=== PATIENT | female | born 1945 | race Caucasian/White ===

== ENCOUNTER 2024-03-25 19:51 | Emergency (ER) | payer MEDICARE, BC, SELFPAY ==
[2024-03-25 19:52] VITALS: BMI 31.2
--- NOTE | 2024-03-25 20:47 | PC.NURSE ---
PT LEAVING DOES NOT WANT TO WAIT, INFORMED PT TO RETURN FOR ANY WORSENING OF SYMPTOMS. PT VERBALIZED UNDERSTANDING
== END 2024-03-25 20:47 | disposition left against medical advice (07) ==
PROVIDERS: Emergency Provider Emergency Medicine; PCP Family Medicine
DX: Z53.21 Procedure and treatment not carried out due to patient leaving prior to being seen by health care provider (principal)

== ENCOUNTER 2024-06-19 09:25 | Emergency (ER) | payer MEDICARE, BC, SELFPAY ==
[2024-06-19 09:34] VITALS: BP 178/82; PULSE 90; RESP 17; TEMP 36.5; O2SAT 95; BMI 31.2
[2024-06-19 09:39] VITALS: PULSE 81; RESP 18; O2SAT 98
--- NOTE | 2024-06-19 09:52 | PD.EDRME ---
Rapid Medical Screening Exam RME Arrival date/time: 06/19/24 09:25 78-year-old female with past medical history of atrial fibrillation, hypertension, diabetes, duodenal ulcer, diverticulosis, and IBS presents emergency department complaining of abdominal pain and diarrhea. Patient reports recently discharged from the hospital this past and was diagnosed with colitis. Chief Complaint: Abdominal Pain Time Seen by Provider: 06/19/24 09:39 Vital signs: Vital Signs Temperature 97.7 F 06/19/24 09:34 Pulse Rate 90 06/19/24 09:34 Respiratory Rate 17 06/19/24 09:34 Blood Pressure 178/82 H 06/19/24 09:34 Pulse Oximetry (%) 95 06/19/24 09:34 Oxygen Delivery Method Room Air 06/19/24 09:34
--- NOTE | 2024-06-19 09:54 | EKG_ITS ---
[facility] Test Date: 2024-06-19 Pat Name: MARIBEL ALAMO Department: Room: - Gender: Female File Conversion Operator: : [id number] Requested By: Demetrius Aranda ([facility]) Order Number: [id number] Reading MD: Demetrius Aranda ([facility]) Measurements Intervals [place] Rate: 85 P: 66 AK: 132 QRS: -2 QRSD: 98 T: 72 QT: 339 QTc: 404 Interpretive Statements SINUS RHYTHM WITH SINUS ARRHYTHMIA POSSIBLE ANTERIOR MYOCARDIAL INFARCTION , OF INDETERMINATE AGE [30 ms Q WAVE IN V3/V4, OR R < 0.2 mV IN V4] Compared to ECG 06/11/2024 14:03:57 No significant changes /store/S0/[id number].pdf
[2024-06-19 10:43] LABS: Basophils # (Auto) 0.1 Thou/mm3 (0.0-0.2); Basophils % (Auto) 1 % (0-2.5); Eosinophils # (Auto) 0.1 Thou/mm3 (0.0-0.5); Eosinophils % (Auto) 0 % (0-10); Hematocrit 34.2 % (36.0-46.0); Hemoglobin 10.7 g/dL (12.0-16.0); Immature Granulocytes % (Auto) 1 % (0-0); Immature Granulocytes Auto 0.09 Thou/mm3 (0.00-0.00); Lymphocytes % (Auto) 17 % (10-50); Mean Corpuscular HGB Conc 31.3 g/dl (31.0-37.0); Mean Corpuscular Hemoglobin 24.8 pg (25.0-35.0); Mean Corpuscular Volume 79 fL (80-100); Monocytes # (Auto) 0.8 Thou/mm3 (0.0-0.8); Monocytes % (Auto) 7 % (0-12); Neutrophils # (Auto) 8.9 Thou/mm3 (1.8-7.7); Neutrophils % (Auto) 75 % (37-80); Nucleated Red Blood Cell % 0 /100 WBC (0); Platelet Count 592 Thou/mm3 (140-440); RDW Standard Deviation 45.1 fL (36.4-46.3); Red Blood Count 4.32 Miln/mm3 (4.00-5.20); White Blood Count 11.9 Thou/mm3 (3.6-11.0)
[2024-06-19 10:49] LABS: B-Type Natriuretic Peptide < 20 pg/mL (0-100)
[2024-06-19 10:51] LABS: Alanine Aminotransferase 15 U/L (10-49); Albumin, Serum 4.7 gm/dL (3.4-4.8); Albumin/Globulin Ratio 1.3 (1.2-2.2); Alkaline Phosphatase 88 U/L (46-116); Anion Gap 8 (7-16); Aspartate Amino Transferase 14 U/L (0-34); BUN/Creatinine Ratio 11 Ratio (12-20); Bilirubin,Total 0.2 mg/dL (0.3-1.2); Blood Urea Nitrogen 11 mg/dL (9-23); Carbon Dioxide 26.5 mMol/L (20.0-31.0); Chloride 101 mMol/L (98-107); Estimated Creatinine Clearance 41.9 mL/min (>60); Globulin 3.6 gm/dL (2.3-3.5); Glucose 184 mg/dL (74-106); Lipase 24 U/L (12-53); Magnesium 1.8 mg/dL (1.6-2.6); Osmolality,Calculated 274 (275-295); Partial Thromboplastin Time 25.8 Seconds (22.0-36.0); Potassium 4.5 mMol/L (3.4-5.1); Prothrombin Time 11.4 Seconds (9.0-12.2); Sodium 135 mMol/L (136-145); Total Protein 8.3 gm/dL (5.7-8.2); Troponin I < 0.002 ng/mL (0.0-0.045); eGFR 58 See Note
[2024-06-19 11:02] LABS: Collection Type, Urine Clean Catch
[2024-06-19 11:34] LABS: Bacteria,Urine Rare; Bilirubin,Urine Negative (Negative); Blood,Urine Negative (Negative); Budding Yeast,Urine Present; Clarity,Urine Turbid (Clear/Hazy); Color,Urine Yellow (Lt Yel-Yel); Culture Indicated,Urine Contaminated; Glucose, Urine Negative (Negative); Ketones,Urine Negative (Negative); Leukocyte Esterase,Urine Positive (Negative); Nitrite,Urine Negative (Negative); Protein,Urine Negative (Neg - Trace); RBC,Urine 5 /hpf (0-3); Specific Gravity,Urine 1.017 (1.001-1.035); Squamous Epithelial Cell,Urine 17 /hpf (0-5); Transitional Epi Cells,Urine 2 /hpf (0-5); Urobilinogen,Urine Negative mg/dL (0.0-1.0); WBC,Urine 16 /hpf (0-5)
[2024-06-19] MEDS: ACETAMINOPHEN 325 MG TABLET 650 MG PO (13:13)
--- NOTE | 2024-06-19 14:37 | PC.NURSE ---
pt placed in rm 9 now.
[2024-06-19 14:42] VITALS: BP 197/84; PULSE 87; RESP 18; TEMP 36.4; O2SAT 98
[2024-06-19 15:14] VITALS: BP 175/88; PULSE 84; RESP 18; TEMP 36.4; O2SAT 98
--- NOTE | 2024-06-19 15:19 | PD.EDADULT ---
ED General RME/HPI General Chief complaint: Abdominal Pain Stated complaint: ABD PAIN Time Seen by Provider: 06/19/24 09:39 Arrival date/time: 06/19/24 09:25 CC: Left upper quadrant abdominal pain HPI ongoing and chronic in nature but state patient has been here many times for the same complaint patient recently discharged from this facility on antibiotics for colitis. Patient states that antibiotics are too strong giving her diarrhea and dizziness. Patient is afebrile nontoxic-appearing not in any acute distress stating the pain is the same location same character slightly increased intensity in the same area of the abdomen. Patient denies chest pain fever chills nausea vomiting shortness of breath or difficulty breathing. RME / HPI RME / HPI narrative: 06/19/24 09:25 78-year-old female with past medical history of atrial fibrillation, hypertension, diabetes, duodenal ulcer, diverticulosis, and IBS presents emergency department complaining of abdominal pain and diarrhea. Patient reports recently discharged from the hospital this past and was diagnosed with colitis. Related Data Home Medications ?Medication ?Instructions ?Recorded ?Confirmed Bifidobacterium infantis 4 mg 4 mg PO DAILY 06/27/23 06/11/24 capsule (Align) acetaminophen 500 mg tablet 500 mg PO PRN PRN Pain 06/27/23 10/28/23 cholecalciferol (vitamin D3) 25 25 mcg PO 1XD 06/27/23 10/28/23 mcg (1,000 unit) tablet (Vitamin D3) levothyroxine 50 mcg tablet 50 mcg PO DAILY 06/27/23 06/11/24 metformin 500 mg tablet 500 mg PO DAILY 06/27/23 06/11/24 duloxetine 60 mg capsule,delayed 60 mg PO QDAY 08/23/23 06/11/24 release alprazolam 0.5 mg tablet 0.5 mg PO BID PRN Anxiety 10/28/23 06/11/24 benazepril 20 mg tablet 20 mg PO QDAY 10/28/23 06/11/24 loperamide 2 mg capsule 2 mg PO QDAY 10/28/23 10/28/23 pantoprazole 40 mg tablet,delayed 40 mg PO QDAY 10/28/23 06/11/24 release apixaban 5 mg tablet (Eliquis) 5 mg PO QDAY 06/11/24 06/11/24 Previous Rx's ?Medication ?Instructions ?Recorded famotidine 20 mg tablet 20 mg PO BID #20 tabs 11/01/23 ondansetron 4 mg disintegrating 4 mg PO Q8H PRN nausea and 02/22/24 tablet vomiting #30 tabs sucralfate 100 mg/mL oral 5 ml PO QID #420 mL 04/10/24 suspension (Carafate) cefdinir 300 mg capsule 300 mg PO BID 9 days #18 caps 06/16/24 metronidazole 500 mg tablet 500 mg PO TID 9 days #27 tabs 06/16/24 Allergies Allergy/AdvReac Type Severity Reaction Status Date / Time amoxicillin [From Augmentin] Allergy Severe Hives Verified 06/06/24 18:04 aspirin Allergy Severe Abdominal Verified 06/06/24 18:04 Pain ciprofloxacin [From Cipro] Allergy Severe Gastrointestinal Verified 06/06/24 18:04 Upset clavulanic acid Allergy Severe Hives Verified 06/06/24 18:04 [From Augmentin] codeine Allergy Severe Nausea Verified 06/06/24 18:04 fluconazole Allergy Severe Rash Verified 06/06/24 18:04 gabapentin Allergy Severe Abdominal Verified 06/06/24 18:04 Pain ketorolac [From Toradol] Allergy Severe Abdominal Verified 06/06/24 18:04 Pain nalbuphine Allergy Severe Abdominal Verified 06/06/24 18:04 Pain Sulfa (Sulfonamide Allergy Severe Hives Verified 06/06/24 18:04 Antibiotics) tizanidine Allergy Severe Rash Verified 06/06/24 18:04 tramadol Allergy Severe Rash Verified 06/06/24 18:04 Review of Systems Review of Systems Narrative Review of Systems: GEN: No fever, no chills, no weight loss EYES: No discharge, no visual changes, no pain HEENT: No ear pain, no congestion, no sore throat PULM: No shortness of breath, no cough, no congestion CV: No chest pain, no dyspnea on exertion, no palpitations GI: No nausea, no vomiting, no diarrhea, + pain, no constipation : No frequency, no urgency, no dysuria MUSC/SKEL: No joint pain, no back pain SKIN: No rash PSYCH: No hallucinations, no depression HEME/LYMPH: No easy bleeding or bruising tendencies NEURO: No weakness, no headache Past Medical History Past Medical History NEUROLOGIC: Negative Neurological Disorders or Seizures CARDIAC: Positive Cardiac Disorders (A FIB), Cardiac Arrhythmia, Atrial Fibrillation, Hypercholesterolemia and Hypertension; Negative Congestive Heart Failure RESPIRATORY: Positive Pneumonia and Sleep Apnea; Negative Chronic Obstructive Pulmonary Disease (COPD) or Asthma GASTROINTESTINAL: Positive Gastrointestinal Bleed, Ulcerative Colitis, Diverticulitis, Diverticulosis, Irritable Bowel, Obstructive Bowel, Hemorrhoids and Obesity GENITOURINARY: Negative Renal Disease ENT: Positive Cataracts and Ear Infection ENDOCRINE: Positive Diabetes Mellitus Type 2 and Hypothyroidism; Negative Diabetes Mellitus Type 1 HEMATOLOGIC: Negative Sickle Cell Disease PSYCHO/SOCIAL: Positive Anxiety OTHER HISTORY: Positive Falls, Blood Transfusions, Anesthesia Reactions, Chicken Pox, Mumps and Clostridium Difficile; Negative Cancer Family History FAMILY HISTORY: Positive Family Cardiac Disorders; Negative Family Respiratory Disorders Surgical History SURGICAL: Positive Cardiac Surgery, Thyroidectomy, Joint Replacement, Hysterectomy and Section Social History SMOKING STATUS: Never smoker SUBSTANCE USE: does not use ED Exam Narrative Physical exam: [General: Not in any acute distress Head normocephalic HEENT: Within acceptable limits Neck is supple nontender Chest equal chest rise nontender to palpation Respiratory: Clear to auscultation no wheezes crackles or rubs CV: Rate rhythm is regular no murmurs rubs or clicks Abdomen is soft nontender no masses positive bowel sounds all 4 quadrants Back: No CVA tenderness no spinous process tenderness from cervical spine thoracic and lumbar spine Skin: Intact no petechiae rash induration ulceration or crepitus Extremities: Moving all extremity against resistance cap refill less than 2 seconds neurosensory intact Neuro: Awake alert oriented x3 Glascow coma 15 no focal deficits] Course Quality Measures none Orders Category Date Time Status EKG (ED ONLY) *Do not use* NOW Care 06/19/24 09:54 Completed EKG (ED Only) Stat Exams 06/19/24 09:54 Draft B-Type Natriuretic Peptide Stat Lab 06/19/24 10:25 Completed CBC Stat Lab 06/19/24 10:25 Completed Comprehensive Metabolic Panel Stat Lab 06/19/24 10:25 Completed Lipase Stat Lab 06/19/24 10:25 Completed Magnesium Stat Lab 06/19/24 10:25 Completed Partial Thromboplastin Time Stat Lab 06/19/24 10:25 Completed Prothrombin Time with INR Stat Lab 06/19/24 10:25 Completed Troponin I Stat Lab 06/19/24 10:25 Completed Urinalysis, C/S if Indicated Stat Lab 06/19/24 10:42 Completed c diff [Clostridium Difficile PCR] Stat Lab 06/19/24 10:42 Completed Acetaminophen Tab [Tylenol Tab] Med 06/19/24 12:24 Discontinued 650 mg PO X1 ONE HYDROcodone*/APAP 5/325 [[place] 5/325] Med 06/19/24 15:26 Discontinued 1 tab PO X1 ONE Vital Signs Vital signs: Vital Signs Temperature 97.7 F 06/19/24 09:34 Pulse Rate 90 06/19/24 09:34 Respiratory Rate 17 06/19/24 09:34 Blood Pressure 178/82 H 06/19/24 09:34 Pulse Oximetry (%) 95 06/19/24 09:34 Oxygen Delivery Method Room Air 06/19/24 09:34 MDM Patient data External records reviewed:: [facility] previous records Clinical information provided by:: patient Social determinants that could affect healthcare access:: none Patient has the following chronic illnesses:: Chronic abdominal pain colitis How is presenting disease/condition affected by chronic disease/condition?: uneffected by Evaluation data The following diagnostics were reviewed and interpreted by me:: lab results Lab and/or radiology exams considered but not ordered:: CBC shows patient has a WBCs of 11.9 H&H of 10.7 and 34.2 with platelets at 592. Coags within acceptable limits CMP shows sodium 135 potassium of 4.5 chloride of 101 bicarb to 26.5 BUN 11 creatinine of 1.0 glucose of 184 Lipase of 24 Urine is contaminated but shows no evidence of UTI. Interpretation Summary: Patient has been here multiple times for the same complaint, with a recent discharge I suspect the patient is having mild adverse reaction to the antibiotics however the patient is not in any acute distress that quires emergent immediate intervention patient will be discharged home. Medications Medications considered but not ordered:: None Medication administrations:: Medication Administration History Discontinued Medications Acetaminophen (Acetaminophen 325 Mg Tablet) 650 mg PO X1 ONE Stop: 06/19/24 12:25 Last Admin: 06/19/24 13:13 Dose: 650 mg Documented By: VG Hydrocodone Bitart/Acetaminophen (Hydrocodone/Apap 5/325 Tablet) 1 tab PO X1 ONE Stop: 06/19/24 15:27 Last Admin: 06/19/24 15:44 Dose: 1 tab Documented By: LF None Consultations Consultation(s) initiated? (list below): No Diagnosis Differential Diagnosis ED Complaint MDM: Enteritis colitis ileus obstruction Most likely diagnosis given after review of the tests above:: Abdominal pain Admission Indicated Admission indicated?: not indicated Explain why admission is indicated or not indicated:: Stable for outpatient follow-up Admission Request Was there a request for admission?: No Disposition Plan Disposition Plan: Discharge Discharge Attestation Discharge Attestation: The patient and all family members were given an opportunity to ask questions and understood the discharge instructions. Discharge instructions specifically effects, indications for sooner follow up or return to the emergency department, and the expected course of current diagnosis. Patient condition: Stable Medical Decision Making Differential Diagnosis Differential Diagnosis: Enteritis colitis ileus obstruction Lab Data 06/19/24 10:25 06/19/24 10:25 Labs: Lab Results 06/19/24 06/19/24 Range/Units 10:25 10:42 WBC 11.9 H (3.6-11.0) Thou/mm3 RBC 4.32 (4.00-5.20) Miln/mm3 Hgb 10.7 L D (12.0-16.0) g/dL Hct 34.2 L (36.0-46.0) % MCV 79 L (80-100) fL MCH 24.8 L (25.0-35.0) pg MCHC 31.3 (31.0-37.0) g/dl RDW Std Deviation 45.1 (36.4-46.3) fL Plt Count 592 H D (140-440) Thou/mm3 Neut % (Auto) 75 (37-80) % Lymph % (Auto) 17 (10-50) % [place] % (Auto) 7 (0-12) % Eos % (Auto) 0 (0-10) % Baso % (Auto) 1 (0-2.5) % Neut # (Auto) 8.9 H (1.8-7.7) Thou/mm3 Lymph # (Auto) 2.0 (1.0-4.8) Thou/mm3 [place] # (Auto) 0.8 (0.0-0.8) Thou/mm3 Eos # (Auto) 0.1 (0.0-0.5) Thou/mm3 Baso # (Auto) 0.1 (0.0-0.2) Thou/mm3 Immature Gran # (Auto) 0.09 H (0.00-0.00) Thou/mm3 Absolute Nucleated RBC 0.00 (0.00-0.00) Thou/mm3 Immature Gran % 1 H (0-0) % Nucleated RBC % 0 (0) /100 WBC PT 11.4 (9.0-12.2) Seconds INR 1.0 (0.9-1.3) APTT 25.8 (22.0-36.0) Seconds Sodium 135 L (136-145) mMol/L Potassium 4.5 (3.4-5.1) mMol/L Chloride 101 (98-107) mMol/L Carbon Dioxide 26.5 (20.0-31.0) mMol/L Anion Gap 8 (7-16) BUN 11 (9-23) mg/dL Creatinine 1.0 (0.6-1.3) mg/dL Estim Creat Clear Calc 41.9 L (>60) mL/min eGFR 58 L (60 - ) See Note BUN/Creatinine Ratio 11 L (12-20) Ratio Glucose 184 H (74-106) mg/dL Calculated Osmolality 274 L (275-295) Calcium 10.0 (8.3-10.6) mg/dL Corrected Calcium 10.0 (8.5-10.1) mg/dL Magnesium 1.8 (1.6-2.6) mg/dL Total Bilirubin 0.2 L (0.3-1.2) mg/dL AST 14 (0-34) U/L ALT 15 (10-49) U/L Alkaline Phosphatase 88 (46-116) U/L Troponin I < 0.002 (0.0-0.045) ng/mL B-Natriuretic Peptide < 20 (0-100) pg/mL Total Protein 8.3 H (5.7-8.2) gm/dL Albumin 4.7 (3.4-4.8) gm/dL Globulin 3.6 H (2.3-3.5) gm/dL Albumin/Globulin Ratio 1.3 (1.2-2.2) Lipase 24 (12-53) U/L Ur Collection Type Clean Catch Urine Color Yellow (Lt Yel-Yel) Urine Clarity Turbid A (Clear/Hazy) Urine pH 6.0 (5.0-7.0) Ur Specific [place] 1.017 (1.001-1.035) Urine Protein Negative (Neg - Trace) Urine Glucose (UA) Negative (Negative) Urine Ketones Negative (Negative) Urine Blood Negative (Negative) Urine Nitrite Negative (Negative) Urine Bilirubin Negative (Negative) Urine Urobilinogen (Auto) Negative (0.0-1.0) mg/dL Ur Leukocyte Esterase Positive (Negative) Urine RBC 5 H (0-3) /hpf Urine WBC 16 H (0-5) /hpf Ur Squamous Epith Cells 17 H (0-5) /hpf Ur Transition Epith Cell 2 (0-5) /hpf Urine Bacteria Rare (None) Urine Yeast (Budding) Present A (None) Ur Culture Indicated? Contaminated Stl C. diff Tox B Gene Negative (Negative) Discharge Plan Plan Patient Disposition: HOME (Self Care) Patient condition on transfer: Stable Prescriptions/Referrals Prescriptions/Med Rec: No Action metformin 500 mg Tablet 500 mg PO DAILY acetaminophen 500 mg Tablet 500 mg PO PRN MDD 4 PRN (Reason: Pain) levothyroxine 50 mcg Tablet 50 mcg PO DAILY cholecalciferol (vitamin D3) [Vitamin D3] 25 mcg (1,000 unit) Tablet 25 mcg PO 1XD Align 4 mg Capsule 4 mg PO DAILY duloxetine 60 mg capsule,delayed release(DR/EC) 60 mg PO QDAY Rx Instructions: Takes 80mg in the afternoon loperamide 2 mg capsule 2 mg PO QDAY alprazolam 0.5 mg tablet 0.5 mg PO BID PRN (Reason: Anxiety) Hold Instructions: Resume on 10/29/23. Patient Comments: TAKE 1 TABLET BY MOUTH THREE TIMES DAILY NEEDED FOR ANXIETY pantoprazole 40 mg tablet,delayed release (DR/EC) 40 mg PO QDAY Patient Comments: TAKE 1 TABLET BY MOUTH DAILY benazepril 20 mg tablet 20 mg PO QDAY famotidine 20 mg tablet 20 mg PO BID Qty: 20 0RF ondansetron 4 mg tablet,disintegrating 4 mg PO Q8H PRN (Reason: nausea and vomiting) Qty: 30 0RF sucralfate [Carafate] 100 mg/mL suspension 5 ml PO QID Qty: 420 0RF Rx Instructions: swish in mouth and swallow; use after food/drink Eliquis 5 mg Tablet 5 mg PO QDAY cefdinir 300 mg capsule 300 mg PO BID 9 Days Qty: 18 0RF metronidazole 500 mg tablet 500 mg PO TID 9 Days Qty: 27 0RF Referrals: Tyrone Langford MD [Primary Care Provider] - In 1 week Problem List Clinical Impression: Abdominal pain Patient/Caregiver Discharge Instructions Education Materials: Abdominal Pain Additional Instructions: Follow-up with Dr. Osuna as recommended your last visit. Print Language: Afghan Stand Alone Forms: [employer] Award Info., Patient Portal Info Letter PA/RADIOLOGIST PHYSICIAN Supervising Physician PA/RADIOLOGIST PHYSICIAN Supervising Physician: Lucius Jimenes ENP
[2024-06-19] MEDS: HYDROcodone/APAP 5/325 TABLET 1 TAB PO (15:44)
[2024-06-19 15:46] LABS: Clostridium Difficile PCR Negative (Negative)
[2024-06-19 16:48] VITALS: BP 179/98; PULSE 80; RESP 18; TEMP 36.8; O2SAT 98
== END 2024-06-19 16:52 | disposition home or self-care (01) ==
PROVIDERS: Emergency Provider Emergency Medicine; PCP Family Medicine
DX: R10.12 Left upper quadrant pain (principal); I49.8 Other specified cardiac arrhythmias; I10 Essential (primary) hypertension
CPT/HCPCS: 36415; 80053; 81001; 83690; 83735; 83880; 84484; 85025; 85610; 85730; 87493; 93005; 99283; A9270

== ENCOUNTER 2024-07-02 15:49 | Emergency (ER) | payer MEDICARE, BC, SELFPAY ==
[2024-07-02 15:52] VITALS: PULSE 96; RESP 18; O2SAT 99
[2024-07-02 15:58] VITALS: BP 185/91; PULSE 100; RESP 18; TEMP 36.9; O2SAT 98; BMI 31.2
--- NOTE | 2024-07-02 16:01 | XR_ITS ---
Examination: CT abdomen and pelvis without contrast. Coronal 3-D reconstructions. Sagittal 2-D reconstructions. Date and time of exam:July 01, 2024 1657 hrs. Indications: Abdominal pain beginning last night CTDI: vol (mGy): 11 DLP: (mGycm): 489 Technique: Axial images of the abdomen have been obtained, 3 mm slice thickness Intravenous contrast material has not been administered. Low dose protocols were performed. One or more of the following dose reduction techniques were used; automated exposure control, adjustment of the mA and/or KV according to patient size, use of iterative reconstruction technique. Findings: No focal liver or splenic lesions No gallstones No pancreatic mass No renal calculi Tiny anterior right proteinaceous cyst 4 mm Aorta normal size No bowel obstruction No pericecal inflammatory change The colon especially rectosigmoid shows mild nonspecific colitis pattern Urinary bladder is intact Right hip hemiarthroplasty with satisfactory alignment Impression: Mild diffuse nonspecific colitis pattern
[2024-07-02] MEDS: ONDANSETRON ODT 4 MG TABRAP PO (16:14)
--- NOTE | 2024-07-02 17:03 | EDNOTE_ITS ---
ED Abdominal Pain RME/HPI General Chief Complaint: Abdominal Pain Stated complaint: ABD PAIN, VOMITING AND DIARRHEA Time seen by provider: 07/02/24 15:58 Arrival date/time: 07/02/24 15:49 RME / HPI RME / HPI narrative: Patient is a 78 year old female presenting to the ED after being seen earlier today complaining of abdominal pain, states the medication given earlier did not help. Patient states she went home and had nausea, vomiting and diarrhea. History includes AFIB, hypertension and diabetes. I took over the care from Dr. Ulloa at 6 PM, see his notes for complete H&P and ED course. I reviewed all diagnostic test results from today: My review of the abdominal CT report is mild colitis. Blood tests and urine tests are unremarkable. At this point, diagnoses include mild colitis. Treatment here included antibiotics. Recommended a trial of treatment at home. Based on my best medical judgment, made decision no further evaluation or treatment indicated at this time. Patient understands and agrees to the discharge instructions customized and printed, see below. Discharge instructions from Dr. Hernadez: 1. After evaluation, your symptoms are due to mild colitis. 2. Take cefdinir and Flagyl for the infection. 3. Zofran for nausea/vomiting. 4. Tylenol with codeine for severe pain. 5. Clear liquid diet for 24 hours then advance as tolerated. 6. To prevent dehydration, increase oral fluid and maintain clear urine.? If dark or yellow, increase oral fluid. 7. See a private doctor on 04/03/2024 for recheck. Ask to review all test results and official radiology reports, to make sure you receive all necessary follow-ups and monitoring. Ask to help you get more care not available here in the ER.? Such as EGD or scoping of your stomach, colonoscopy or scoping the colon, and a referral to see a groundwater monitoring technician. 8. Seek immediate medical care with worsening, fever, or with any concerns. 9. Whenever you need to take pills but have trouble (such as nausea, vomiting, upset stomach), but the pill(s) in your rectum. They will get absorbed into your blood without going through your stomach and work better. Abhijeet Hernadez MD Related Data Home Medications ?Medication ?Instructions ?Recorded ?Confirmed Bifidobacterium infantis 4 mg 4 mg PO DAILY 06/27/23 06/11/24 capsule (Align) acetaminophen 500 mg tablet 500 mg PO PRN PRN Pain 06/27/23 10/28/23 cholecalciferol (vitamin D3) 25 25 mcg PO 1XD 06/27/23 10/28/23 mcg (1,000 unit) tablet (Vitamin D3) levothyroxine 50 mcg tablet 50 mcg PO DAILY 06/27/23 06/11/24 metformin 500 mg tablet 500 mg PO DAILY 06/27/23 06/11/24 duloxetine 60 mg capsule,delayed 60 mg PO QDAY 08/23/23 06/11/24 release alprazolam 0.5 mg tablet 0.5 mg PO BID PRN Anxiety 10/28/23 06/11/24 benazepril 20 mg tablet 20 mg PO QDAY 10/28/23 06/11/24 loperamide 2 mg capsule 2 mg PO QDAY 10/28/23 10/28/23 pantoprazole 40 mg tablet,delayed 40 mg PO QDAY 10/28/23 06/11/24 release apixaban 5 mg tablet (Eliquis) 5 mg PO QDAY 06/11/24 06/11/24 Previous Rx's ?Medication ?Instructions ?Recorded famotidine 20 mg tablet 20 mg PO BID #20 tabs 11/01/23 ondansetron 4 mg disintegrating 4 mg PO Q8H PRN nausea and 02/22/24 tablet vomiting #30 tabs sucralfate 100 mg/mL oral 5 ml PO QID #420 mL 04/10/24 suspension (Carafate) acetaminophen 300 mg-codeine 30 mg 2 tab PO TID PRN pain #20 tabs 07/02/24 tablet cefdinir 300 mg capsule 300 mg PO BID #14 caps 07/02/24 lidocaine HCl 2 % mucosal solution 5 ml PO TIDPC PRN dyspepsia #300 mL 07/02/24 (Lidocaine Viscous) metronidazole 500 mg tablet 500 mg PO BID 7 days #14 tabs 07/02/24 ondansetron 4 mg disintegrating 4 mg PO TID PRN nausea and 07/02/24 tablet vomiting 5 days #10 tabs sucralfate 100 mg/mL oral 10 ml PO TID #500 mL 07/02/24 suspension (Carafate) Allergies Allergy/AdvReac Type Severity Reaction Status Date / Time amoxicillin [From Augmentin] Allergy Severe Hives Verified 07/02/24 08:56 aspirin Allergy Severe Abdominal Verified 07/02/24 08:56 Pain ciprofloxacin [From Cipro] Allergy Severe Gastrointestinal Verified 07/02/24 08:56 Upset clavulanic acid Allergy Severe Hives Verified 07/02/24 08:56 [From Augmentin] codeine Allergy Severe Nausea Verified 07/02/24 08:56 fluconazole Allergy Severe Rash Verified 07/02/24 08:56 gabapentin Allergy Severe Abdominal Verified 07/02/24 08:56 Pain ketorolac [From Toradol] Allergy Severe Abdominal Verified 07/02/24 08:56 Pain nalbuphine Allergy Severe Abdominal Verified 07/02/24 08:56 Pain Sulfa (Sulfonamide Allergy Severe Hives Verified 07/02/24 08:56 Antibiotics) tizanidine Allergy Severe Rash Verified 07/02/24 08:56 tramadol Allergy Severe Rash Verified 07/02/24 08:56 Review of Systems Review of Systems Narrative Review of Systems: Gen: No fever, no chills, no weight loss EYES: No discharge, no visual changes, no pain HEENT: No ear pain, no congestion, no sore throat PULM: No shortness of breath, no cough, no congestion CV: No chest pain, no dyspnea on exertion, no palpitations GI: + nausea, vomiting, diarrhea, pain, no constipation : No frequency, no urgency, no dysuria Musc/skel: No joint pain, no back pain Skin: No rash Psyc: No hallucinations, no depression Heme/Lymph: No easy bleeding or bruising tendencies Neuro: No weakness, no headache Past Medical History Past Medical History NEUROLOGIC: Negative Neurological Disorders or Seizures CARDIAC: Positive Cardiac Disorders (A FIB), Cardiac Arrhythmia, Atrial Fibrillation, Hypercholesterolemia and Hypertension; Negative Congestive Heart Failure RESPIRATORY: Positive Pneumonia and Sleep Apnea; Negative Chronic Obstructive Pulmonary Disease (COPD) or Asthma GASTROINTESTINAL: Positive Gastrointestinal Bleed, Ulcerative Colitis, Diverticulitis, Diverticulosis, Irritable Bowel, Obstructive Bowel, Hemorrhoids and Obesity GENITOURINARY: Negative Renal Disease ENT: Positive Cataracts and Ear Infection ENDOCRINE: Positive Diabetes Mellitus Type 2 and Hypothyroidism; Negative Diabetes Mellitus Type 1 HEMATOLOGIC: Negative Sickle Cell Disease PSYCHO/SOCIAL: Positive Anxiety OTHER HISTORY: Positive Falls, Blood Transfusions, Anesthesia Reactions, Chicken Pox, Mumps and Clostridium Difficile; Negative Cancer Family History FAMILY HISTORY: Positive Family Cardiac Disorders; Negative Family Respiratory Disorders Surgical History SURGICAL: Positive Cardiac Surgery, Thyroidectomy, Joint Replacement, Hysterectomy and Section Social History SMOKING STATUS: Never smoker SUBSTANCE USE: does not use ED Exam Narrative Physical exam: GEN. APPEARANCE: The patient is alert awake oriented X-3 in minimal distress, lying down comfortably, does not look ill/toxic. Patient has good eye contact. Patient is cooperative. Patient is tearful, appears to be in pain. VITALS: All vitals were reviewed and the pulse ox is 98% on room air which is normal according to my interpretation. HEENT: Normocephalic, atraumatic. Pupils are equal and reactive. Oral mucosa is moist. Patent Nares NECK: Supple, nontender, no thyromegaly, no meningismus, no JVD, no step offs CHEST: Symmetrical, atraumatic, and with equal expansion , Nontender on palpation no deformity and no crepitus. CARDIOVASCULAR: Heart regular rhythm no murmur or gallop rub or extra beats. LUNGS: Clear to auscultation bilaterally with symmetrical chest rise. No laboring tachypnea or wheezing. No intercostal subcostal retraction. No rales and no rhonchi. ABDOMEN: Soft, flat, nontender to palpation, no guarding or rebound tenderness. There are no abnormal masses palpated. Active and normal bowel sounds. EXTREMITIES: Nontender. No edema. No cyanosis. Patient is able to move all 4 extremities well, with full ROM and good CSM. SKIN: Warm and dry, no jaundice or rashes noted. MUSCULOSKELETAL: No lubar or midline bony tenderness. There is no CVA tenderness. No paraspinal muscle spasm or tenderness. NEURO: Patient is SHEA x 4, Cranial nerves II through XII grossly intact. There is no focal neurologic deficits noted. GCS is 15, PNS and [employer] appear grossly intact. PSYCHIATRIC: Patient is in normal mood and affect, cooperative, no SI or HI or hallucinations. Course Quality Measures none Orders Category Date Time Status CT abdomen pelvis wo con Stat Exams 07/02/24 16:01 Completed Ondansetron Odt [Zofran Odt] Med 07/02/24 16:01 Discontinued 4 mg PO X1 ONE cefTRIAXone [Rocephin] 1,000 mg Med 07/02/24 19:45 Discontinued Lidocaine 1% 20 ml [Xylocaine 1% 20 ML] 2.1 ml IM X1 fentaNYL INJ [Sublimaze Inj] Med 07/02/24 16:03 Discontinued 25 mcg IM X1 ONE Vital Signs Vital signs: Vital Signs Temperature 98.5 F 07/02/24 15:58 Pulse Rate 100 07/02/24 15:58 Respiratory Rate 18 07/02/24 15:58 Blood Pressure 185/91 H 07/02/24 15:58 Pulse Oximetry (%) 98 07/02/24 15:58 Oxygen Delivery Method Room Air 07/02/24 15:58 Abdominal Pain MDM Patient data External records reviewed:: [facility] previous records Clinical information provided by:: patient Social determinants that could affect healthcare access:: none Patient has the following chronic illnesses:: AFIB, hypertension, diabetes How is presenting disease/condition affected by chronic disease/condition?: uneffected by Evaluation data The following diagnostics were reviewed and interpreted by me:: lab results Lab and/or radiology exams considered but not ordered:: none Interpretation Summary: radiology pending at sign out Medications / Prescriptions Medications or Prescriptions considered but not ordered:: none Medication administrations:: Medication Administration History Discontinued Medications Ceftriaxone Sodium 1,000 mg/ (Lidocaine HCl 2.1 ml) 0 mg IM X1 ONE Stop: 07/02/24 19:46 Last Admin: 07/02/24 20:08 Dose: 2.1 mg Documented By: ROMEL Fentanyl Citrate (Fentanyl Cit Inj 50 Mcg/Ml Amp 2ml) 25 mcg IM X1 ONE Stop: 07/02/24 16:04 Last Admin: 07/02/24 17:14 Dose: 25 mcg Documented By: ROMEL Ondansetron HCl (Ondansetron Odt 4 Mg Tabrap) 4 mg PO X1 ONE; Protocol Stop: 07/02/24 16:02 Last Admin: 07/02/24 16:14 Dose: 4 mg Documented By: ROMEL see above Consultations Consultation(s) initiated? (list below): No Diagnosis Differential diagnosis abdominal pain: other (gastritis, enteritis) Most likely diagnosis given after review of the tests above:: pending at time of sign out Admission Indicated Admission indicated?: not indicated Admission Request Was there a request for admission?: No Disposition Plan Disposition Plan: other (specify) (handed off to next shift physician pending results. ) Discharge Plan Plan Patient Disposition: HOME (Self Care) Prescriptions/Referrals Prescriptions/Med Rec: New metronidazole 500 mg tablet 500 mg PO BID 7 Days Qty: 14 0RF acetaminophen-codeine 300-30 mg tablet 2 tab PO TID MDD 6 PRN (Reason: pain) Qty: 20 0RF ondansetron 4 mg tablet,disintegrating 4 mg PO TID PRN (Reason: nausea and vomiting) 5 Days Qty: 10 0RF cefdinir 300 mg capsule 300 mg PO BID Qty: 14 0RF No Action metformin 500 mg Tablet 500 mg PO DAILY acetaminophen 500 mg Tablet 500 mg PO PRN MDD 4 PRN (Reason: Pain) levothyroxine 50 mcg Tablet 50 mcg PO DAILY cholecalciferol (vitamin D3) [Vitamin D3] 25 mcg (1,000 unit) Tablet 25 mcg PO 1XD Align 4 mg Capsule 4 mg PO DAILY duloxetine 60 mg capsule,delayed release(DR/EC) 60 mg PO QDAY Rx Instructions: Takes 80mg in the afternoon loperamide 2 mg capsule 2 mg PO QDAY alprazolam 0.5 mg tablet 0.5 mg PO BID PRN (Reason: Anxiety) Hold Instructions: Resume on 10/29/23. Patient Comments: TAKE 1 TABLET BY MOUTH THREE TIMES DAILY NEEDED FOR ANXIETY pantoprazole 40 mg tablet,delayed release (DR/EC) 40 mg PO QDAY Patient Comments: TAKE 1 TABLET BY MOUTH DAILY benazepril 20 mg tablet 20 mg PO QDAY famotidine 20 mg tablet 20 mg PO BID Qty: 20 0RF ondansetron 4 mg tablet,disintegrating 4 mg PO Q8H PRN (Reason: nausea and vomiting) Qty: 30 0RF lidocaine HCl [Lidocaine Viscous] 2 % solution 5 ml PO TIDPC MDD 15 mL PRN (Reason: dyspepsia) Qty: 300 0RF sucralfate [Carafate] 100 mg/mL suspension 10 ml PO TID Qty: 500 0RF Rx Instructions: swish in mouth and swallow; use after food/drink sucralfate [Carafate] 100 mg/mL suspension 5 ml PO QID Qty: 420 0RF Rx Instructions: swish in mouth and swallow; use after food/drink Eliquis 5 mg Tablet 5 mg PO QDAY Referrals: Tyrone Langford MD [Primary Care Provider] - In 1 week Problem List Clinical Impression: Colitis Patient/Caregiver Discharge Instructions Discharge Activity: activity as tolerated Education Materials: ED Crohn's Disease, ED Ulcerative Colitis Additional Instructions: Discharge instructions from Dr. Hernadez: 1. After evaluation, your symptoms are due to mild colitis. 2. Take cefdinir and Flagyl for the infection. 3. Zofran for nausea/vomiting. 4. Tylenol with codeine for severe pain. 5. Clear liquid diet for 24 hours then advance as tolerated. 6. To prevent dehydration, increase oral fluid and maintain clear urine.? If dark or yellow, increase oral fluid. 7. See a private doctor on 04/03/2024 for recheck. Ask to review all test results and official radiology reports, to make sure you receive all necessary follow-ups and monitoring. Ask to help you get more care not available here in the ER.? Such as EGD or scoping of your stomach, colonoscopy or scoping the colon, and a referral to see a groundwater monitoring technician. 8. Seek immediate medical care with worsening, fever, or with any concerns. 9. Whenever you need to take pills but have trouble (such as nausea, vomiting, upset stomach), but the pill(s) in your rectum. They will get absorbed into your blood without going through your stomach and work better. Print Language: Macedonian Stand Alone Forms: [employer] Info., Patient Portal Info Letter
[2024-07-02] MEDS: fentaNYL CIT INJ 50 mCg/ML AMP 2ML 25 MCG IM (17:14)
--- NOTE | 2024-07-02 20:01 | PD.EDADDENDU ---
Emergency Room Addendum Addendum Narrative: I took over the care from Dr. Ulloa at 6 PM, see his notes for complete H&P and ED course. I reviewed all diagnostic test results from today: My review of the abdominal CT report is mild colitis. Blood tests and urine tests are unremarkable. At this point, diagnoses include mild colitis. Treatment here included antibiotics. Recommended a trial of treatment at home. Based on my best medical judgment, made decision no further evaluation or treatment indicated at this time. Patient understands and agrees to the discharge instructions customized and printed, see below. Discharge instructions from Dr. Hernaedz: 1. After evaluation, your symptoms are due to mild colitis. 2. Take cefdinir and Flagyl for the infection. 3. Zofran for nausea/vomiting. 4. Tylenol with codeine for severe pain. 5. Clear liquid diet for 24 hours then advance as tolerated. 6. To prevent dehydration, increase oral fluid and maintain clear urine.? If dark or yellow, increase oral fluid. 7. See a private doctor on 04/03/2024 for recheck. Ask to review all test results and official radiology reports, to make sure you receive all necessary follow-ups and monitoring. Ask to help you get more care not available here in the ER.? Such as EGD or scoping of your stomach, colonoscopy or scoping the colon, and a referral to see a supervisor stock ranch. 8. Seek immediate medical care with worsening, fever, or with any concerns. 9. Whenever you need to take pills but have trouble (such as nausea, vomiting, upset stomach), but the pill(s) in your rectum. They will get absorbed into your blood without going through your stomach and work better. Abhijeet Hernadez MD
[2024-07-02] MEDS: cefTRIAXone 1,000 MG, LIDOCAINE 1% 20 ML 2.1 ML IM (20:08)
[2024-07-02 20:49] VITALS: BP 124/82; PULSE 78; RESP 16; O2SAT 99
== END 2024-07-02 20:50 | disposition home or self-care (01) ==
PROVIDERS: Emergency Provider Emergency Medicine; PCP Family Medicine
DX: K52.9 Noninfective gastroenteritis and colitis, unspecified (principal)
CPT/HCPCS: 36415; 74176; 76705; 80053; 81001; 83690; 84484; 85025; 96372; 99284; J0696; J3010; J3490; Q0162; A9270

== ENCOUNTER 2024-07-04 08:19 | Emergency (ER) | payer MEDICARE, BC, SELFPAY ==
[2024-07-04 08:23] VITALS: BMI 31.2
--- NOTE | 2024-07-04 08:30 | PD.EDRME ---
Rapid Medical Screening Exam RME Arrival date/time: 07/04/24 08:19 78-year-old female presents to the emergency department complaint of abdominal pain Chief Complaint: Abdominal Pain Time Seen by Provider: 07/04/24 08:22
[2024-07-04 08:35] VITALS: BP 157/92; PULSE 95; RESP 19; TEMP 36.6; O2SAT 98
[2024-07-04] MEDS: METOCLOPRAMIDE INJ 5 MG/ML VIAL 2 ML 10 MG IM (08:36)
[2024-07-04 09:34] LABS: Basophils % (Auto) 0 % (0-2.5); Eosinophils % (Auto) 0 % (0-10); Hematocrit 34.3 % (36.0-46.0); Hemoglobin 10.4 g/dL (12.0-16.0); Immature Granulocytes % (Auto) 0 % (0-0); Immature Granulocytes Auto 0.02 Thou/mm3 (0.00-0.00); Lymphocytes # (Auto) 2.2 Thou/mm3 (1.0-4.8); Lymphocytes % (Auto) 30 % (10-50); Mean Corpuscular HGB Conc 30.3 g/dl (31.0-37.0); Mean Corpuscular Hemoglobin 23.8 pg (25.0-35.0); Mean Corpuscular Volume 79 fL (80-100); Monocytes # (Auto) 0.6 Thou/mm3 (0.0-0.8); Monocytes % (Auto) 8 % (0-12); Neutrophils # (Auto) 4.6 Thou/mm3 (1.8-7.7); Neutrophils % (Auto) 61 % (37-80); Nucleated Red Blood Cell % 0 /100 WBC (0); Platelet Count 496 Thou/mm3 (140-440); RDW Standard Deviation 45.7 fL (36.4-46.3); Red Blood Count 4.37 Miln/mm3 (4.00-5.20); White Blood Count 7.6 Thou/mm3 (3.6-11.0)
[2024-07-04 10:03] LABS: Alanine Aminotransferase 18 U/L (10-49); Albumin, Serum 4.8 gm/dL (3.4-4.8); Albumin/Globulin Ratio 1.4 (1.2-2.2); Alkaline Phosphatase 75 U/L (46-116); Anion Gap 10 (7-16); Aspartate Amino Transferase 20 U/L (0-34); BUN/Creatinine Ratio 15 Ratio (12-20); Bilirubin,Total 0.4 mg/dL (0.3-1.2); Blood Urea Nitrogen 15 mg/dL (9-23); Calcium 10.3 mg/dL (8.3-10.6); Calcium (Corrected) 10.3 mg/dL (8.5-10.1); Chloride 102 mMol/L (98-107); Estimated Creatinine Clearance 41.9 mL/min (>60); Globulin 3.4 gm/dL (2.3-3.5); Glucose 186 mg/dL (74-106); Lipase 31 U/L (12-53); Osmolality,Calculated 277 (275-295); Sodium 136 mMol/L (136-145); Total Protein 8.2 gm/dL (5.7-8.2); eGFR 58 See Note
[2024-07-04 10:09] LABS: Collection Type, Urine Clean Catch
[2024-07-04 10:18] LABS: Bilirubin,Urine Negative (Negative); Blood,Urine Negative (Negative); Clarity,Urine Clear (Clear/Hazy); Color,Urine Lt-Yellow (Lt Yel-Yel); Culture Indicated,Urine Not Indicated; Glucose, Urine Negative (Negative); Hyaline Casts,Urine < 1 /hpf (0-1); Ketones,Urine Negative (Negative); Leukocyte Esterase,Urine Positive (Negative); Nitrite,Urine Negative (Negative); PH,Urine 5.5 (5.0-7.0); Protein,Urine Negative (Neg - Trace); RBC,Urine 5 /hpf (0-3); Specific Gravity,Urine 1.014 (1.001-1.035); Squamous Epithelial Cell,Urine 3 /hpf (0-5); Urobilinogen,Urine Negative mg/dL (0.0-1.0); WBC,Urine 9 /hpf (0-5)
--- NOTE | 2024-07-04 12:13 | PD.EDADULT ---
ED General RME/HPI General Chief complaint: Abdominal Pain Stated complaint: colitis Time Seen by Provider: 07/04/24 08:22 Arrival date/time: 07/04/24 08:19 CC: Abdominal pain HPI ongoing chronic for months. Patient seen last night for same thing was started on antibiotics. The patient is actually here to wonder if she can administer the antibiotics rectally versus orally because they tear her stomach up . Patient immediately asking for pain medications. Review of the medical record show the patient has a large number of visits for the same complaint. Patient states she is already being seen by Dr. Osuna, breeder hen service technician for follow-up, patient states she has had 1 round of watery diarrhea yesterday but none today. Patient is afebrile nontoxic-appearing not in any acute distress. RME / HPI RME / HPI narrative: 07/04/24 08:19 78-year-old female presents to the emergency department complaint of abdominal pain Related Data Home Medications ?Medication ?Instructions ?Recorded ?Confirmed Bifidobacterium infantis 4 mg 4 mg PO DAILY 06/27/23 06/11/24 capsule (Align) acetaminophen 500 mg tablet 500 mg PO PRN PRN Pain 06/27/23 10/28/23 cholecalciferol (vitamin D3) 25 25 mcg PO 1XD 06/27/23 10/28/23 mcg (1,000 unit) tablet (Vitamin D3) levothyroxine 50 mcg tablet 50 mcg PO DAILY 06/27/23 06/11/24 metformin 500 mg tablet 500 mg PO DAILY 06/27/23 06/11/24 duloxetine 60 mg capsule,delayed 60 mg PO QDAY 08/23/23 06/11/24 release alprazolam 0.5 mg tablet 0.5 mg PO BID PRN Anxiety 10/28/23 06/11/24 benazepril 20 mg tablet 20 mg PO QDAY 10/28/23 06/11/24 loperamide 2 mg capsule 2 mg PO QDAY 10/28/23 10/28/23 pantoprazole 40 mg tablet,delayed 40 mg PO QDAY 10/28/23 06/11/24 release apixaban 5 mg tablet (Eliquis) 5 mg PO QDAY 06/11/24 06/11/24 Previous Rx's ?Medication ?Instructions ?Recorded famotidine 20 mg tablet 20 mg PO BID #20 tabs 11/01/23 ondansetron 4 mg disintegrating 4 mg PO Q8H PRN nausea and 02/22/24 tablet vomiting #30 tabs sucralfate 100 mg/mL oral 5 ml PO QID #420 mL 04/10/24 suspension (Carafate) acetaminophen 300 mg-codeine 30 mg 2 tab PO TID PRN pain #20 tabs 07/02/24 tablet cefdinir 300 mg capsule 300 mg PO BID #14 caps 07/02/24 lidocaine HCl 2 % mucosal solution 5 ml PO TIDPC PRN dyspepsia #300 mL 07/02/24 (Lidocaine Viscous) metronidazole 500 mg tablet 500 mg PO BID 7 days #14 tabs 07/02/24 ondansetron 4 mg disintegrating 4 mg PO TID PRN nausea and 07/02/24 tablet vomiting 5 days #10 tabs sucralfate 100 mg/mL oral 10 ml PO TID #500 mL 07/02/24 suspension (Carafate) Allergies Allergy/AdvReac Type Severity Reaction Status Date / Time amoxicillin [From Augmentin] Allergy Severe Hives Verified 07/02/24 08:56 aspirin Allergy Severe Abdominal Verified 07/02/24 08:56 Pain ciprofloxacin [From Cipro] Allergy Severe Gastrointestinal Verified 07/02/24 08:56 Upset clavulanic acid Allergy Severe Hives Verified 07/02/24 08:56 [From Augmentin] codeine Allergy Severe Nausea Verified 07/02/24 08:56 fluconazole Allergy Severe Rash Verified 07/02/24 08:56 gabapentin Allergy Severe Abdominal Verified 07/02/24 08:56 Pain ketorolac [From Toradol] Allergy Severe Abdominal Verified 07/02/24 08:56 Pain nalbuphine Allergy Severe Abdominal Verified 07/02/24 08:56 Pain Sulfa (Sulfonamide Allergy Severe Hives Verified 07/02/24 08:56 Antibiotics) tizanidine Allergy Severe Rash Verified 07/02/24 08:56 tramadol Allergy Severe Rash Verified 07/02/24 08:56 Review of Systems Review of Systems Narrative Review of Systems: GEN: No fever, no chills, no weight loss EYES: No discharge, no visual changes, no pain HEENT: No ear pain, no congestion, no sore throat PULM: No shortness of breath, no cough, no congestion CV: No chest pain, no dyspnea on exertion, no palpitations GI: No nausea, no vomiting, no diarrhea, + pain, no constipation : No frequency, no urgency, no dysuria MUSC/SKEL: No joint pain, no back pain SKIN: No rash PSYCH: No hallucinations, no depression HEME/LYMPH: No easy bleeding or bruising tendencies NEURO: No weakness, no headache Past Medical History Past Medical History NEUROLOGIC: Negative Neurological Disorders or Seizures CARDIAC: Positive Cardiac Disorders (A FIB), Cardiac Arrhythmia, Atrial Fibrillation, Hypercholesterolemia and Hypertension; Negative Congestive Heart Failure RESPIRATORY: Positive Pneumonia and Sleep Apnea; Negative Chronic Obstructive Pulmonary Disease (COPD) or Asthma GASTROINTESTINAL: Positive Gastrointestinal Bleed, Ulcerative Colitis, Diverticulitis, Diverticulosis, Irritable Bowel, Obstructive Bowel, Hemorrhoids and Obesity GENITOURINARY: Negative Renal Disease ENT: Positive Cataracts and Ear Infection ENDOCRINE: Positive Diabetes Mellitus Type 2 and Hypothyroidism; Negative Diabetes Mellitus Type 1 HEMATOLOGIC: Negative Sickle Cell Disease PSYCHO/SOCIAL: Positive Anxiety OTHER HISTORY: Positive Falls, Blood Transfusions, Anesthesia Reactions, Chicken Pox, Mumps and Clostridium Difficile; Negative Cancer Family History FAMILY HISTORY: Positive Family Cardiac Disorders; Negative Family Respiratory Disorders Surgical History SURGICAL: Positive Cardiac Surgery, Thyroidectomy, Joint Replacement, Hysterectomy and Section Social History SMOKING STATUS: Never smoker SUBSTANCE USE: does not use ED Exam Narrative Physical exam: [General: Obese not in any acute distress Head normocephalic HEENT: Within acceptable limits Neck is supple nontender Chest equal chest rise nontender to palpation Respiratory: Clear to auscultation no wheezes crackles or rubs CV: Rate rhythm is regular no murmurs rubs or clicks Abdomen is distended secondary to body habitus soft, diffuse tenderness throughout, no masses positive bowel sounds all 4 quadrants Back: No CVA tenderness no spinous process tenderness from cervical spine thoracic and lumbar spine Skin: Intact no petechiae rash induration ulceration or crepitus Extremities: Moving all extremity against resistance cap refill less than 2 seconds neurosensory intact Neuro: Awake alert oriented x3 Glascow coma 15 no focal deficits] Course Quality Measures none Orders Category Date Time Status CBC Stat Lab 07/04/24 09:15 Completed Comprehensive Metabolic Panel Stat Lab 07/04/24 09:15 Completed Lipase Stat Lab 07/04/24 09:15 Completed UA, C/S IF [Urinalysis, C/S if Indicated] Stat Lab 07/04/24 09:53 Completed c diff [Clostridium Difficile PCR] Stat Lab 07/04/24 Ordered Meloxicam [Mobic] Med 07/04/24 12:16 Discontinued 7.5 mg PO X1 ONE Metoclopramide Inj [Reglan Inj] Med 07/04/24 08:30 Discontinued 10 mg IM X1 ONE Vital Signs Vital signs: Vital Signs Temperature 97.9 F 07/04/24 08:35 Pulse Rate 95 07/04/24 08:35 Respiratory Rate 19 07/04/24 08:35 Blood Pressure 157/92 H 07/04/24 08:35 Pulse Oximetry (%) 98 07/04/24 08:35 Oxygen Delivery Method Room Air 07/04/24 08:35 [facility] Patient data External records reviewed:: [facility] previous records Clinical information provided by:: patient Social determinants that could affect healthcare access:: none Patient has the following chronic illnesses:: Abdominal pain How is presenting disease/condition affected by chronic disease/condition?: uneffected by Evaluation data The following diagnostics were reviewed and interpreted by me:: lab results Lab and/or radiology exams considered but not ordered:: CBC shows no acute leukocytosis anemia thrombocytopenia CMP shows no acute electrolyte imbalances renal impairment transaminitis or T. bili elevation Urine is negative for UTI Interpretation Summary: Abdominal pain Medications Medications considered but not ordered:: None Medication administrations:: Medication Administration History Discontinued Medications Meloxicam (Meloxicam 7.5 Mg Tablet) 7.5 mg PO X1 ONE Stop: 07/04/24 12:17 Last Admin: 07/04/24 12:51 Dose: 7.5 mg Documented By: JUSTUS Metoclopramide HCl (Metoclopramide Inj 5 Mg/Ml Vial 2 Ml) 10 mg IM X1 ONE; Protocol Stop: 07/04/24 08:31 Last Admin: 07/04/24 08:36 Dose: 10 mg Documented By: [facility] Comments: scanner broken None Consultations Consultation(s) initiated? (list below): No Diagnosis Differential Diagnosis ED Complaint MDM: Abdominal pain colitis diverticulitis Most likely diagnosis given after review of the tests above:: Abdominal pain Admission Indicated Admission indicated?: not indicated Explain why admission is indicated or not indicated:: Stable for outpatient follow-up Admission Request Was there a request for admission?: No Disposition Plan Disposition Plan: Discharge Discharge Attestation Discharge Attestation: The patient and all family members were given an opportunity to ask questions and understood the discharge instructions. Discharge instructions specifically effects, indications for sooner follow up or return to the emergency department, and the expected course of current diagnosis. Patient condition: Stable Medical Decision Making Differential Diagnosis Differential Diagnosis: Abdominal pain colitis diverticulitis Lab Data 07/04/24 09:15 07/04/24 09:15 Labs: Lab Results 07/04/24 07/04/24 Range/Units 09:15 09:53 WBC 7.6 (3.6-11.0) Thou/mm3 RBC 4.37 (4.00-5.20) Miln/mm3 Hgb 10.4 L (12.0-16.0) g/dL Hct 34.3 L (36.0-46.0) % MCV 79 L (80-100) fL MCH 23.8 L (25.0-35.0) pg MCHC 30.3 L (31.0-37.0) g/dl RDW Std Deviation 45.7 (36.4-46.3) fL Plt Count 496 H D (140-440) Thou/mm3 Neut % (Auto) 61 (37-80) % Lymph % (Auto) 30 (10-50) % Nash % (Auto) 8 (0-12) % Eos % (Auto) 0 (0-10) % Baso % (Auto) 0 (0-2.5) % Neut # (Auto) 4.6 (1.8-7.7) Thou/mm3 Lymph # (Auto) 2.2 (1.0-4.8) Thou/mm3 Nash # (Auto) 0.6 (0.0-0.8) Thou/mm3 Eos # (Auto) 0.0 (0.0-0.5) Thou/mm3 Baso # (Auto) 0.0 (0.0-0.2) Thou/mm3 Immature Gran # (Auto) 0.02 H (0.00-0.00) Thou/mm3 Absolute Nucleated RBC 0.00 (0.00-0.00) Thou/mm3 Immature Gran % 0 (0-0) % Nucleated RBC % 0 (0) /100 WBC Sodium 136 (136-145) mMol/L Potassium 4.0 (3.4-5.1) mMol/L Chloride 102 (98-107) mMol/L Carbon Dioxide 24.0 (20.0-31.0) mMol/L Anion Gap 10 (7-16) BUN 15 (9-23) mg/dL Creatinine 1.0 (0.6-1.3) mg/dL Estim Creat Clear Calc 41.9 L (>60) mL/min eGFR 58 L (60 - ) See Note BUN/Creatinine Ratio 15 (12-20) Ratio Glucose 186 H (74-106) mg/dL Calculated Osmolality 277 (275-295) Calcium 10.3 (8.3-10.6) mg/dL Corrected Calcium 10.3 H (8.5-10.1) mg/dL Total Bilirubin 0.4 (0.3-1.2) mg/dL AST 20 (0-34) U/L ALT 18 (10-49) U/L Alkaline Phosphatase 75 (46-116) U/L Total Protein 8.2 (5.7-8.2) gm/dL Albumin 4.8 (3.4-4.8) gm/dL Globulin 3.4 (2.3-3.5) gm/dL Albumin/Globulin Ratio 1.4 (1.2-2.2) Lipase 31 (12-53) U/L Ur Collection Type Clean Catch Urine Color Lt-Yellow (Lt Yel-Yel) Urine Clarity Clear (Clear/Hazy) Urine pH 5.5 (5.0-7.0) Ur Specific [place] 1.014 (1.001-1.035) Urine Protein Negative (Neg - Trace) Urine Glucose (UA) Negative (Negative) Urine Ketones Negative (Negative) Urine Blood Negative (Negative) Urine Nitrite Negative (Negative) Urine Bilirubin Negative (Negative) Urine Urobilinogen (Auto) Negative (0.0-1.0) mg/dL Ur Leukocyte Esterase Positive (Negative) Urine RBC 5 H (0-3) /hpf Urine WBC 9 H (0-5) /hpf Ur Squamous Epith Cells 3 (0-5) /hpf Urine Bacteria None (None) Hyaline Casts < 1 (0-1) /hpf Ur Culture Indicated? Not Indicated Discharge Plan Plan Patient Disposition: HOME (Self Care) Patient condition on transfer: Stable Prescriptions/Referrals Prescriptions/Med Rec: No Action metformin 500 mg Tablet 500 mg PO DAILY acetaminophen 500 mg Tablet 500 mg PO PRN MDD 4 PRN (Reason: Pain) levothyroxine 50 mcg Tablet 50 mcg PO DAILY cholecalciferol (vitamin D3) [Vitamin D3] 25 mcg (1,000 unit) Tablet 25 mcg PO 1XD Align 4 mg Capsule 4 mg PO DAILY duloxetine 60 mg capsule,delayed release(DR/EC) 60 mg PO QDAY Rx Instructions: Takes 80mg in the afternoon loperamide 2 mg capsule 2 mg PO QDAY alprazolam 0.5 mg tablet 0.5 mg PO BID PRN (Reason: Anxiety) Hold Instructions: Resume on 10/29/23. Patient Comments: TAKE 1 TABLET BY MOUTH THREE TIMES DAILY NEEDED FOR ANXIETY pantoprazole 40 mg tablet,delayed release (DR/EC) 40 mg PO QDAY Patient Comments: TAKE 1 TABLET BY MOUTH DAILY benazepril 20 mg tablet 20 mg PO QDAY famotidine 20 mg tablet 20 mg PO BID Qty: 20 0RF ondansetron 4 mg tablet,disintegrating 4 mg PO Q8H PRN (Reason: nausea and vomiting) Qty: 30 0RF lidocaine HCl [Lidocaine Viscous] 2 % solution 5 ml PO TIDPC MDD 15 mL PRN (Reason: dyspepsia) Qty: 300 0RF sucralfate [Carafate] 100 mg/mL suspension 10 ml PO TID Qty: 500 0RF Rx Instructions: swish in mouth and swallow; use after food/drink metronidazole 500 mg tablet 500 mg PO BID 7 Days Qty: 14 0RF acetaminophen-codeine 300-30 mg tablet 2 tab PO TID MDD 6 PRN (Reason: pain) Qty: 20 0RF ondansetron 4 mg tablet,disintegrating 4 mg PO TID PRN (Reason: nausea and vomiting) 5 Days Qty: 10 0RF cefdinir 300 mg capsule 300 mg PO BID Qty: 14 0RF sucralfate [Carafate] 100 mg/mL suspension 5 ml PO QID Qty: 420 0RF Rx Instructions: swish in mouth and swallow; use after food/drink Eliquis 5 mg Tablet 5 mg PO QDAY Referrals: Tyrone Langford MD [Primary Care Provider] - In 1 week Problem List Clinical Impression: Abdominal pain Patient/Caregiver Discharge Instructions Other Activity Instructions:: Recommend you follow-up with Dr. Langford or Dr. Osuna, recommend you stop the antibiotics however you do need to take them you can administer them rectally. Education Materials: Abdominal Pain Print Language: Grenadian Stand Alone Forms: [facility] Award Info., Patient Portal Info Letter MD Attestation MD Attestation The patient was seen by the midlevel practitioner. I, the co-signing physician, was present during the entire ER visit. While I did not physically examine the patient, I was available for consultation as needed.
[2024-07-04] MEDS: MELOXICAM 7.5 MG TABLET PO (12:51)
== END 2024-07-04 12:56 | disposition home or self-care (01) ==
PROVIDERS: Nurse Practitioner Primary Care; Emergency Provider Emergency Medicine; PCP Family Medicine
DX: R10.9 Unspecified abdominal pain (principal); E11.9 Type 2 diabetes mellitus without complications; I10 Essential (primary) hypertension; E78.00 Pure hypercholesterolemia, unspecified; I48.91 Unspecified atrial fibrillation; E03.9 Hypothyroidism, unspecified; Z88.5 Allergy status to narcotic agent; Z88.6 Allergy status to analgesic agent
CPT/HCPCS: 36415; 80053; 81001; 83690; 85025; 87493; 96372; 99283; J2765; A9270

== ENCOUNTER 2024-07-10 19:26 | Emergency (ER) | payer MEDICARE, BC, SELFPAY ==
--- NOTE | 2024-07-10 19:29 | EKG_ITS ---
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
--- NOTE | 2024-07-10 19:29 | XR_ITS ---
Examination: AP chest single view Technique: AP portable sitting chest single view Exam date and time: July 10, 2024 1940 hrs. Comparison May 10, 2024 Indications: Shortness of breath coughing chest pain beginning 2 days ago. Findings: Minor prominence left ventricle Mild vascular congestion. No lobar pneumonia or pulmonary edema Impression: Mild vascular congestion
[2024-07-10 19:41] VITALS: BP 186/81; PULSE 70; RESP 15; TEMP 37.1; O2SAT 97
[2024-07-10 19:42] VITALS: PULSE 69; PULSE 96; RESP 19; O2SAT 96; BMI 31.2
--- NOTE | 2024-07-10 19:50 | EDNOTE_ITS ---
ED Chest Pain RME/HPI General Chief Complaint: Chest Pain Stated Complaint: CHEST PAIN Time Seen by Provider: 07/10/24 19:29 Source: patient Arrival date/time: 07/10/24 19:26 Mode of arrival: ambulatory Limitations: no limitations RME / HPI RME / HPI narrative: DR. SANTANA MAIN ED EVALUATION: 78 year old female presents to the Emergency Department with complaint of substernal chest pain radiating to the left. Pain is described as aching and rated moderate in severity. Associated SOB. PMHx: Atrial fibrillation, hypertension, diabetes, duodenal ulcer, chronic pain. Social Hx: No tobacco, alcohol, or substance use. Related Data Home Medications ?Medication ?Instructions ?Recorded ?Confirmed Bifidobacterium infantis 4 mg 4 mg PO DAILY 06/27/23 06/11/24 capsule (Align) acetaminophen 500 mg tablet 500 mg PO PRN PRN Pain 06/27/23 10/28/23 cholecalciferol (vitamin D3) 25 25 mcg PO 1XD 06/27/23 10/28/23 mcg (1,000 unit) tablet (Vitamin D3) levothyroxine 50 mcg tablet 50 mcg PO DAILY 06/27/23 06/11/24 metformin 500 mg tablet 500 mg PO DAILY 06/27/23 06/11/24 duloxetine 60 mg capsule,delayed 60 mg PO QDAY 08/23/23 06/11/24 release alprazolam 0.5 mg tablet 0.5 mg PO BID PRN Anxiety 10/28/23 06/11/24 benazepril 20 mg tablet 20 mg PO QDAY 10/28/23 06/11/24 loperamide 2 mg capsule 2 mg PO QDAY 10/28/23 10/28/23 pantoprazole 40 mg tablet,delayed 40 mg PO QDAY 10/28/23 06/11/24 release apixaban 5 mg tablet (Eliquis) 5 mg PO QDAY 06/11/24 06/11/24 Previous Rx's ?Medication ?Instructions ?Recorded famotidine 20 mg tablet 20 mg PO BID #20 tabs 11/01/23 ondansetron 4 mg disintegrating 4 mg PO Q8H PRN nausea and 02/22/24 tablet vomiting #30 tabs sucralfate 100 mg/mL oral 5 ml PO QID #420 mL 04/10/24 suspension (Carafate) acetaminophen 300 mg-codeine 30 mg 2 tab PO TID PRN pain #20 tabs 07/02/24 tablet cefdinir 300 mg capsule 300 mg PO BID #14 caps 07/02/24 lidocaine HCl 2 % mucosal solution 5 ml PO TIDPC PRN dyspepsia #300 mL 07/02/24 (Lidocaine Viscous) sucralfate 100 mg/mL oral 10 ml PO TID #500 mL 07/02/24 suspension (Carafate) Allergies Allergy/AdvReac Type Severity Reaction Status Date / Time amoxicillin [From Augmentin] Allergy Severe Hives Verified 07/02/24 08:56 aspirin Allergy Severe Abdominal Verified 07/02/24 08:56 Pain ciprofloxacin [From Cipro] Allergy Severe Gastrointestinal Verified 07/02/24 08:56 Upset clavulanic acid Allergy Severe Hives Verified 07/02/24 08:56 [From Augmentin] codeine Allergy Severe Nausea Verified 07/02/24 08:56 fluconazole Allergy Severe Rash Verified 07/02/24 08:56 gabapentin Allergy Severe Abdominal Verified 07/02/24 08:56 Pain ketorolac [From Toradol] Allergy Severe Abdominal Verified 07/02/24 08:56 Pain nalbuphine Allergy Severe Abdominal Verified 07/02/24 08:56 Pain Sulfa (Sulfonamide Allergy Severe Hives Verified 07/02/24 08:56 Antibiotics) tizanidine Allergy Severe Rash Verified 07/02/24 08:56 tramadol Allergy Severe Rash Verified 07/02/24 08:56 Review of Systems Review of Systems Systems Reviewed: All systems reviewed, normal except as documented Past Medical History Past Medical History CARDIAC: Positive Cardiac Disorders (A FIB), Cardiac Arrhythmia, Atrial Fibrillation, Hypercholesterolemia and Hypertension RESPIRATORY: Positive Pneumonia and Sleep Apnea GASTROINTESTINAL: Positive Gastrointestinal Bleed, Ulcerative Colitis, Diverticulitis, Diverticulosis, Irritable Bowel, Obstructive Bowel, Hemorrhoids and Obesity ENT: Positive Cataracts and Ear Infection ENDOCRINE: Positive Diabetes Mellitus Type 2 and Hypothyroidism PSYCHO/SOCIAL: Positive Anxiety OTHER HISTORY: Positive Falls, Blood Transfusions, Anesthesia Reactions, Chicken Pox, Mumps and Clostridium Difficile Family History FAMILY HISTORY: Positive Family Cardiac Disorders Surgical History SURGICAL: Positive Cardiac Surgery, Thyroidectomy, Joint Replacement, Hysterectomy and Section Social History SMOKING STATUS: Never smoker SUBSTANCE USE: does not use ALCOHOL: Never ED Exam Narrative Physical exam: GENERAL APPEARANCE: alert and oriented x 4, well-developed, well-nourished, no acute distress VITALS: All vitals were reviewed and the pulse ox is 97% on room air, which is normal according to my interpretation. HEENT: Normocephalic, atraumatic; pupils equal, round, reactive to light; EOMI; mucous membranes pink, moist; oropharynx clear NECK: Supple LUNGS: CTABL; no wheezes, no rales, no rhonchi HEART: Regular rate, regular rhythm; normal S1, S2; no murmurs ABDOMEN: non distended; normal BS; soft, no tenderness, no guarding, no rebound; no masses, no organomegaly, no hernia BACK: no CVA tenderness EXTREMITIES: atraumatic; no edema NEUROLOGIC: awake; alert and oriented x4; cranial nerves II-XII grossly intact; no focal sensory or motor deficits PSYCHIATRIC: appropriate mood and affect SKIN: warm, dry, normal color; no rashes General Limitations: Present no limitations Course Quality Measures none Orders Category Date Time Status Drapery Counselor NOW Care 07/10/24 19:29 Completed EKG (ED ONLY) *Do not use* NOW Care 07/10/24 19:29 Completed EKG (ED Only) Stat Exams 07/10/24 19:29 Draft XR chest 1V portable Stat Exams 07/10/24 19:29 Completed B-Type Natriuretic Peptide Stat Lab 07/10/24 19:45 Completed CBC Stat Lab 07/10/24 19:45 Completed Comprehensive Metabolic Panel Stat Lab 07/10/24 19:45 Completed Lipase Stat Lab 07/10/24 19:45 Completed Magnesium Stat Lab 07/10/24 19:45 Completed Partial Thromboplastin Time Stat Lab 07/10/24 19:45 Completed Prothrombin Time with INR Stat Lab 07/10/24 19:45 Completed Troponin I Stat Lab 07/10/24 19:45 Completed Troponin I Stat Lab 07/10/24 23:03 Completed Morphine Inj Med 07/10/24 21:45 Discontinued 2 mg IVP X1 ONE Ondansetron Inj [Zofran Inj] Med 07/10/24 21:45 Discontinued 4 mg IV X1 ONE Vital Signs Vital signs: Vital Signs Temperature 98.8 F 07/10/24 19:41 Pulse Rate 70 07/10/24 19:41 Respiratory Rate 15 07/10/24 19:41 Blood Pressure 186/81 H 07/10/24 19:41 Pulse Oximetry (%) 97 07/10/24 19:41 Oxygen Delivery Method Room Air 07/10/24 19:41 Chest Pain MDM Narrative MDM Narrative:: ISandra am scribing for and in the presence of Dr. Santana. Patient data External records reviewed:: [facility] previous records (Reviewed last ED visit dated 07/04/24, discharged with the following: Abdominal pain.) Clinical information provided by:: patient Social determinants that could affect healthcare access:: none Patient has the following chronic illnesses:: Atrial fibrillation, hypertension, diabetes, duodenal ulcer, chronic pain. How is presenting disease/condition affected by chronic disease/condition?: exacerbated by Evaluation data The following diagnostics were reviewed and interpreted by me:: lab results, radiology exam(s) and EKG tracing(s) Lab and/or radiology exams considered but not ordered:: none Interpretation Summary: Procedure(s): XR chest 1V portable Accession Number(s): [id number] cc: Miles Navas MD; Jenniffer Santana MD; Tyrone Langfodr MD~ Examination: AP chest single view Technique: AP portable sitting chest single view Exam date and time: July 10, 2024 1940 hrs. Comparison May 10, 2024 Indications: Shortness of breath coughing chest pain beginning 2 days ago. Findings: Minor prominence left ventricle Mild vascular congestion. No lobar pneumonia or pulmonary edema Impression: Mild vascular congestion Dictated By: Miles Navas MD Medications / Prescriptions Medications or Prescriptions considered but not ordered:: none Medication administrations:: Medication Administration History Discontinued Medications Morphine Sulfate (Morphine Sulf Inj 10 Mg/Ml Vial) 2 mg IVP X1 ONE Stop: 07/10/24 21:46 Last Admin: 07/10/24 21:50 Dose: 2 mg Documented By: SF Ondansetron HCl (Ondansetron Inj 2 Mg/Ml Inj 2 Ml) 4 mg IV X1 ONE Stop: 07/10/24 21:46 Last Admin: 07/10/24 21:50 Dose: 4 mg Documented By: GODWIN see above if any Consultations Consultation(s) initiated? (list below): No Diagnosis Chest Pain Differential Diagnosis: pneumothorax, costochondritis, chest pain and biliary colic Most likely diagnosis given after review of the tests above:: Chest pain Admission Indicated Admission indicated?: not indicated Admission Request Was there a request for admission?: No Disposition Plan Disposition Plan: Discharge Discharge Attestation Discharge Attestation: The patient and all family members were given an opportunity to ask questions and understood the discharge instructions. Discharge instructions specifically effects, indications for sooner follow up or return to the emergency department, and the expected course of current diagnosis. Patient condition: Stable Discharge Plan Plan Patient Disposition: HOME (Self Care) Prescriptions/Referrals Prescriptions/Med Rec: No Action metformin 500 mg Tablet 500 mg PO DAILY acetaminophen 500 mg Tablet 500 mg PO PRN MDD 4 PRN (Reason: Pain) levothyroxine 50 mcg Tablet 50 mcg PO DAILY cholecalciferol (vitamin D3) [Vitamin D3] 25 mcg (1,000 unit) Tablet 25 mcg PO 1XD Align 4 mg Capsule 4 mg PO DAILY duloxetine 60 mg capsule,delayed release(DR/EC) 60 mg PO QDAY Rx Instructions: Takes 80mg in the afternoon loperamide 2 mg capsule 2 mg PO QDAY alprazolam 0.5 mg tablet 0.5 mg PO BID PRN (Reason: Anxiety) Hold Instructions: Resume on 10/29/23. Patient Comments: TAKE 1 TABLET BY MOUTH THREE TIMES DAILY NEEDED FOR ANXIETY pantoprazole 40 mg tablet,delayed release (DR/EC) 40 mg PO QDAY Patient Comments: TAKE 1 TABLET BY MOUTH DAILY benazepril 20 mg tablet 20 mg PO QDAY famotidine 20 mg tablet 20 mg PO BID Qty: 20 0RF ondansetron 4 mg tablet,disintegrating 4 mg PO Q8H PRN (Reason: nausea and vomiting) Qty: 30 0RF lidocaine HCl [Lidocaine Viscous] 2 % solution 5 ml PO TIDPC MDD 15 mL PRN (Reason: dyspepsia) Qty: 300 0RF sucralfate [Carafate] 100 mg/mL suspension 10 ml PO TID Qty: 500 0RF Rx Instructions: swish in mouth and swallow; use after food/drink acetaminophen-codeine 300-30 mg tablet 2 tab PO TID MDD 6 PRN (Reason: pain) Qty: 20 0RF cefdinir 300 mg capsule 300 mg PO BID Qty: 14 0RF sucralfate [Carafate] 100 mg/mL suspension 5 ml PO QID Qty: 420 0RF Rx Instructions: swish in mouth and swallow; use after food/drink Eliquis 5 mg Tablet 5 mg PO QDAY Referrals: Tyrone Langford MD [Primary Care Provider] - In 1 week Problem List Clinical Impression: Chest pain Patient/Caregiver Discharge Instructions Education Materials: ED Chest Pain, Uncertain Cause Print Language: [place] Stand Alone Forms: [facility] Award Info., Patient Portal Info Letter
--- NOTE | 2024-07-10 19:51 | PC.NURSE ---
PT BIB EMS WITH C/O LEFT SIDED CHEST PAIN RAD TO LEFT ARM, N/V/ ABD PAIN X1 HR PRIOR TO ER ARRIVAL. PT STATES WAS A SUDDEN ONSET, WHILE SHE WAS LYING IN BED. PER EMS 12 LEAD NEG. PT GIVEN NITRO 0.4MG SL X3, 1 NITRO PASTE AND ASA 162MG PO AND PAIN WENT FROM 10/10 IN ROUTE. PT PRESENT TO HER STATING CP IS 6/10. PT PRESENTS HYPERTENSIVE. A/OX3. PT PLACED ON CASING OPERATOR, EKG COMPLETED AND MD SIGNED. 20G LAC IV STARTED AND BLOOD SENT TO LAB. CALL LIGHT WITHIN REACH. BED AT LOWEST POSITION. PT UPDATED ON PLAN OF CARE.
[2024-07-10 19:54] LABS: Basophils # (Auto) 0.1 Thou/mm3 (0.0-0.2); Basophils % (Auto) 1 % (0-2.5); Eosinophils # (Auto) 0.1 Thou/mm3 (0.0-0.5); Eosinophils % (Auto) 1 % (0-10); Hemoglobin 9.7 g/dL (12.0-16.0); Immature Granulocytes % (Auto) 0 % (0-0); Immature Granulocytes Auto 0.03 Thou/mm3 (0.00-0.00); Lymphocytes # (Auto) 2.5 Thou/mm3 (1.0-4.8); Lymphocytes % (Auto) 29 % (10-50); Mean Corpuscular HGB Conc 30.3 g/dl (31.0-37.0); Mean Corpuscular Volume 79 fL (80-100); Monocytes # (Auto) 0.9 Thou/mm3 (0.0-0.8); Monocytes % (Auto) 10 % (0-12); Neutrophils # (Auto) 5.1 Thou/mm3 (1.8-7.7); Neutrophils % (Auto) 59 % (37-80); Nucleated Red Blood Cell # 0.02 Thou/mm3 (0.00-0.00); Nucleated Red Blood Cell % 0 /100 WBC (0); Platelet Count 425 Thou/mm3 (140-440); RDW Standard Deviation 46.1 fL (36.4-46.3); Red Blood Count 4.04 Miln/mm3 (4.00-5.20); White Blood Count 8.7 Thou/mm3 (3.6-11.0)
[2024-07-10 20:09] LABS: Partial Thromboplastin Time 23.4 Seconds (22.0-36.0); Prothrombin Time 10.7 Seconds (9.0-12.2)
[2024-07-10 20:12] LABS: B-Type Natriuretic Peptide 31 pg/mL (0-100)
[2024-07-10 20:13] LABS: Alanine Aminotransferase 14 U/L (10-49); Albumin, Serum 4.9 gm/dL (3.4-4.8); Anion Gap 8 (7-16); Aspartate Amino Transferase 16 U/L (0-34); BUN/Creatinine Ratio 12 Ratio (12-20); Bilirubin,Total 0.3 mg/dL (0.3-1.2); Blood Urea Nitrogen 12 mg/dL (9-23); Calcium 10.7 mg/dL (8.3-10.6); Calcium (Corrected) 10.7 mg/dL (8.5-10.1); Carbon Dioxide 27.9 mMol/L (20.0-31.0); Chloride 101 mMol/L (98-107); Estimated Creatinine Clearance 41.9 mL/min (>60); Globulin 3.4 gm/dL (2.3-3.5); Glucose 119 mg/dL (74-106); Magnesium 2.1 mg/dL (1.6-2.6); Osmolality,Calculated 274 (275-295); Sodium 137 mMol/L (136-145); Total Protein 8.3 gm/dL (5.7-8.2); Troponin I < 0.002 ng/mL (0.0-0.045); eGFR 58 See Note
[2024-07-10 20:14] LABS: Albumin/Globulin Ratio 1.4 (1.2-2.2); Alkaline Phosphatase 80 U/L (46-116); Lipase 30 U/L (12-53)
[2024-07-10] MEDS: ONDANSETRON INJ 2 MG/ML INJ 2 ML 4 MG IV (21:50)
[2024-07-10] MEDS: MORPHINE SULF INJ 10 MG/ML VIAL 2 MG IVP (21:50)
[2024-07-10 22:00] VITALS: BP 161/73; PULSE 71; RESP 18; O2SAT 94
[2024-07-10 23:38] LABS: Troponin I < 0.002 ng/mL (0.0-0.045)
[2024-07-11 00:39] VITALS: BP 134/72; PULSE 83; RESP 17; TEMP 37; O2SAT 94
== END 2024-07-11 00:53 | disposition home or self-care (01) ==
PROVIDERS: Emergency Provider Emergency Medicine; PCP Family Medicine
DX: R07.2 Precordial pain (principal); R09.89 Other specified symptoms and signs involving the circulatory and respiratory systems; I49.3 Ventricular premature depolarization; I10 Essential (primary) hypertension; I48.91 Unspecified atrial fibrillation; Z79.01 Long term (current) use of anticoagulants
CPT/HCPCS: 36415; 71045; 80053; 83690; 83735; 83880; 84484; 85025; 85610; 85730; 93005; 96374; 99284; J2270; J2405

== ENCOUNTER 2024-07-21 02:25 | Emergency (ER) | payer MEDICARE, BC, SELFPAY ==
[2024-07-21 02:33] VITALS: BP 172/95; PULSE 101; RESP 19; TEMP 36.4; O2SAT 97
--- NOTE | 2024-07-21 03:00 | PC.NURSE ---
radha going home @[phone]
== END 2024-07-21 03:04 | disposition left against medical advice (07) ==
LOC: SERX 03:05
PROVIDERS: Emergency Provider Emergency Medicine; PCP Family Medicine
DX: Z53.21 Procedure and treatment not carried out due to patient leaving prior to being seen by health care provider (principal)
CPT/HCPCS: 99281

== ENCOUNTER 2024-07-23 17:32 | Emergency (ER) | payer MEDICARE, BC, SELFPAY ==
[2024-07-23 17:33] VITALS: BMI 27.4
[2024-07-23 17:35] VITALS: BP 151/72; PULSE 86; RESP 19; TEMP 36.7; O2SAT 98
--- NOTE | 2024-07-23 17:48 | EKG_ITS ---
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
--- NOTE | 2024-07-23 17:48 | XR_ITS ---
Examination: Abdomen sonogram, Limited Date and time of exam: July 23, 2024 1957 hrs. Indications: Onset right upper abdominal pain beginning 3 days ago Technique: Real-time bowling scale transabdominal sonographic images of the upper abdomen obtained. Findings: Normal gallbladder Normal common bile duct Pancreatic head 3.3 cm Liver 15 cm no focal liver lesions Normal hepatopedal portal venous flow Patent IVC Impression: Negative examination
--- NOTE | 2024-07-23 17:48 | PD.EDRME ---
Rapid Medical Screening Exam RME Arrival date/time: 07/23/24 17:32 Chief Complaint: Abdominal Pain Vital signs: Vital Signs Temperature 98.1 F 07/23/24 17:35 Pulse Rate 86 07/23/24 17:35 Respiratory Rate 19 07/23/24 17:35 Blood Pressure 151/72 H 07/23/24 17:35 Pulse Oximetry (%) 98 07/23/24 17:35 Oxygen Delivery Method Room Air 07/23/24 17:35 RME Narrative: RUQ pain radiating to right back x3 days. Referred from pcp clinic for acute abdomen.
[2024-07-23 18:44] LABS: Basophils % (Auto) 1 % (0-2.5); Eosinophils % (Auto) 0 % (0-10); Hematocrit 33.5 % (36.0-46.0); Hemoglobin 10.4 g/dL (12.0-16.0); Immature Granulocytes % (Auto) 0 % (0-0); Immature Granulocytes Auto 0.03 Thou/mm3 (0.00-0.00); Lymphocytes % (Auto) 26 % (10-50); Mean Corpuscular Hemoglobin 24.4 pg (25.0-35.0); Mean Corpuscular Volume 79 fL (80-100); Monocytes # (Auto) 0.7 Thou/mm3 (0.0-0.8); Monocytes % (Auto) 10 % (0-12); Neutrophils # (Auto) 4.8 Thou/mm3 (1.8-7.7); Neutrophils % (Auto) 63 % (37-80); Nucleated Red Blood Cell % 0 /100 WBC (0); Platelet Count 465 Thou/mm3 (140-440); RDW Standard Deviation 46.6 fL (36.4-46.3); Red Blood Count 4.27 Miln/mm3 (4.00-5.20); White Blood Count 7.6 Thou/mm3 (3.6-11.0)
[2024-07-23 18:58] LABS: Collection Type, Urine Clean Catch
[2024-07-23 19:01] LABS: Bilirubin,Urine Negative (Negative); Blood,Urine Negative (Negative); Clarity,Urine Clear (Clear/Hazy); Color,Urine Lt-Yellow (Lt Yel-Yel); Glucose, Urine Negative (Negative); Ketones,Urine Negative (Negative); Leukocyte Esterase,Urine Positive (Negative); Nitrite,Urine Negative (Negative); PH,Urine 5.5 (5.0-7.0); Protein,Urine Negative (Neg - Trace); RBC,Urine 2 /hpf (0-3); Specific Gravity,Urine 1.016 (1.001-1.035); Squamous Epithelial Cell,Urine 2 /hpf (0-5); Urobilinogen,Urine Negative mg/dL (0.0-1.0); WBC,Urine 12 /hpf (0-5)
[2024-07-23 19:02] LABS: Alanine Aminotransferase 20 U/L (10-49); Albumin, Serum 5.4 gm/dL (3.4-4.8); Albumin/Globulin Ratio 1.7 (1.2-2.2); Alkaline Phosphatase 83 U/L (46-116); Anion Gap 11 (7-16); Aspartate Amino Transferase 17 U/L (0-34); BUN/Creatinine Ratio 15 Ratio (12-20); Bilirubin,Total 0.3 mg/dL (0.3-1.2); Blood Urea Nitrogen 17 mg/dL (9-23); Calcium 10.1 mg/dL (8.3-10.6); Calcium (Corrected) 10.1 mg/dL (8.5-10.1); Carbon Dioxide 27.5 mMol/L (20.0-31.0); Chloride 99 mMol/L (98-107); Creatinine (Component) 1.1 mg/dL (0.6-1.3); Estimated Creatinine Clearance 41.8 mL/min (>60); Globulin 3.2 gm/dL (2.3-3.5); Glucose 126 mg/dL (74-106); Lipase 29 U/L (12-53); Osmolality,Calculated 277 (275-295); Potassium 4.1 mMol/L (3.4-5.1); Sodium 137 mMol/L (136-145); Total Protein 8.6 gm/dL (5.7-8.2); Troponin I < 0.002 ng/mL (0.0-0.045); eGFR 52 See Note
--- NOTE | 2024-07-23 22:07 | PD.EDABDPN ---
ED Abdominal Pain RME/HPI General Chief Complaint: Abdominal Pain Stated complaint: SENT FROM MD OFFICE FOR CHRONIC ABD PAIN Time seen by provider: 07/23/24 22:06 Arrival date/time: 07/23/24 17:32 RME / HPI RME / HPI narrative: RUQ pain radiating to right back x3 days. Referred from pcp clinic for acute abdomen. Related Data Home Medications ?Medication ?Instructions ?Recorded ?Confirmed Bifidobacterium infantis 4 mg 4 mg PO DAILY 06/27/23 06/11/24 capsule (Align) acetaminophen 500 mg tablet 500 mg PO PRN PRN Pain 06/27/23 10/28/23 cholecalciferol (vitamin D3) 25 25 mcg PO 1XD 06/27/23 10/28/23 mcg (1,000 unit) tablet (Vitamin D3) levothyroxine 50 mcg tablet 50 mcg PO DAILY 06/27/23 06/11/24 metformin 500 mg tablet 500 mg PO DAILY 06/27/23 06/11/24 duloxetine 60 mg capsule,delayed 60 mg PO QDAY 08/23/23 06/11/24 release alprazolam 0.5 mg tablet 0.5 mg PO BID PRN Anxiety 10/28/23 06/11/24 benazepril 20 mg tablet 20 mg PO QDAY 10/28/23 06/11/24 loperamide 2 mg capsule 2 mg PO QDAY 10/28/23 10/28/23 pantoprazole 40 mg tablet,delayed 40 mg PO QDAY 10/28/23 06/11/24 release apixaban 5 mg tablet (Eliquis) 5 mg PO QDAY 06/11/24 06/11/24 Previous Rx's ?Medication ?Instructions ?Recorded famotidine 20 mg tablet 20 mg PO BID #20 tabs 11/01/23 ondansetron 4 mg disintegrating 4 mg PO Q8H PRN nausea and 02/22/24 tablet vomiting #30 tabs sucralfate 100 mg/mL oral 5 ml PO QID #420 mL 04/10/24 suspension (Carafate) acetaminophen 300 mg-codeine 30 mg 2 tab PO TID PRN pain #20 tabs 07/02/24 tablet cefdinir 300 mg capsule 300 mg PO BID #14 caps 07/02/24 lidocaine HCl 2 % mucosal solution 5 ml PO TIDPC PRN dyspepsia #300 mL 07/02/24 (Lidocaine Viscous) sucralfate 100 mg/mL oral 10 ml PO TID #500 mL 07/02/24 suspension (Carafate) Allergies Allergy/AdvReac Type Severity Reaction Status Date / Time amoxicillin [From Augmentin] Allergy Severe Hives Verified 07/23/24 17:36 aspirin Allergy Severe Abdominal Verified 07/23/24 17:36 Pain ciprofloxacin [From Cipro] Allergy Severe Gastrointestinal Verified 07/23/24 17:36 Upset clavulanic acid Allergy Severe Hives Verified 07/23/24 17:36 [From Augmentin] codeine Allergy Severe Nausea Verified 07/23/24 17:36 fluconazole Allergy Severe Rash Verified 07/23/24 17:36 gabapentin Allergy Severe Abdominal Verified 07/23/24 17:36 Pain ketorolac [From Toradol] Allergy Severe Abdominal Verified 07/23/24 17:36 Pain nalbuphine Allergy Severe Abdominal Verified 07/23/24 17:36 Pain Sulfa (Sulfonamide Allergy Severe Hives Verified 07/23/24 17:36 Antibiotics) tizanidine Allergy Severe Rash Verified 07/23/24 17:36 tramadol Allergy Severe Rash Verified 07/23/24 17:36 Review of Systems Review of Systems Narrative Review of Systems: Review of system reviewed and within normal limits except mentioned in HPI ED Exam Narrative Physical exam: VITAL SIGNS: Reviewed. GENERAL APPEARANCE: Alert and interactive, follows commands, no acute distress, HEAD AND FACE: Non-traumatic. ENT: PERRL, pink conjunctivitis, eyelid no trauma, Mucous membrane moist. NECK: Supple, nontender, no nuchal rigidity. CHEST: No tenderness, no crepitus, no paradoxical movement, no retractions. LUNGS: Clear, well ventilated, symmetric, no rales, no wheezing, no ronchi, no stridor, good breath sounds bilaterally. HEART: Regular rate, regular rhythm, no murmur, no gallops. ABDOMEN: Soft, positive bowel sounds, nondistended, no guarding, nontender, no rebound, no masses, RECTAL: Deferred. GENITAL: Deferred. NEUROLOGICAL: Gross motor function intact sensory function intact, Appropriate for age. MUSCULOSKELETAL: low back nontender, full range of motion. EXTREMITIES: Nontender, full range of motion. SKIN: Color pink, dry, no rash, no lacerations, no abrasions, no contusions. LYMPHATICS: Deferred. Course Orders Category Date Time Status EKG (ED ONLY) *Do not use* NOW Care 07/23/24 17:48 Completed EKG (ED Only) Stat Exams 07/23/24 17:48 Draft US gall bladder Stat Exams 07/23/24 17:48 Completed CBC Stat Lab 07/23/24 18:19 Completed CMP [Comprehensive Metabolic Panel] Stat Lab 07/23/24 18:19 Completed Lipase Stat Lab 07/23/24 18:19 Completed Troponin I Stat Lab 07/23/24 18:19 Completed UA [Urinalysis] Stat Lab 07/23/24 18:20 Completed Vital Signs Vital signs: Vital Signs Temperature 98.1 F 07/23/24 17:35 Pulse Rate 86 07/23/24 17:35 Respiratory Rate 19 07/23/24 17:35 Blood Pressure 151/72 H 07/23/24 17:35 Pulse Oximetry (%) 98 07/23/24 17:35 Oxygen Delivery Method Room Air 07/23/24 17:35 Discharge Plan Prescriptions/Referrals Prescriptions/Med Rec: No Action metformin 500 mg Tablet 500 mg PO DAILY acetaminophen 500 mg Tablet 500 mg PO PRN MDD 4 PRN (Reason: Pain) levothyroxine 50 mcg Tablet 50 mcg PO DAILY cholecalciferol (vitamin D3) [Vitamin D3] 25 mcg (1,000 unit) Tablet 25 mcg PO 1XD Align 4 mg Capsule 4 mg PO DAILY duloxetine 60 mg capsule,delayed release(DR/EC) 60 mg PO QDAY Rx Instructions: Takes 80mg in the afternoon loperamide 2 mg capsule 2 mg PO QDAY alprazolam 0.5 mg tablet 0.5 mg PO BID PRN (Reason: Anxiety) Hold Instructions: Resume on 10/29/23. Patient Comments: TAKE 1 TABLET BY MOUTH THREE TIMES DAILY NEEDED FOR ANXIETY pantoprazole 40 mg tablet,delayed release (DR/EC) 40 mg PO QDAY Patient Comments: TAKE 1 TABLET BY MOUTH DAILY benazepril 20 mg tablet 20 mg PO QDAY famotidine 20 mg tablet 20 mg PO BID Qty: 20 0RF ondansetron 4 mg tablet,disintegrating 4 mg PO Q8H PRN (Reason: nausea and vomiting) Qty: 30 0RF lidocaine HCl [Lidocaine Viscous] 2 % solution 5 ml PO TIDPC MDD 15 mL PRN (Reason: dyspepsia) Qty: 300 0RF sucralfate [Carafate] 100 mg/mL suspension 10 ml PO TID Qty: 500 0RF Rx Instructions: swish in mouth and swallow; use after food/drink acetaminophen-codeine 300-30 mg tablet 2 tab PO TID MDD 6 PRN (Reason: pain) Qty: 20 0RF cefdinir 300 mg capsule 300 mg PO BID Qty: 14 0RF sucralfate [Carafate] 100 mg/mL suspension 5 ml PO QID Qty: 420 0RF Rx Instructions: swish in mouth and swallow; use after food/drink Eliquis 5 mg Tablet 5 mg PO QDAY Referrals: Tyrone Langford MD [Primary Care Provider] - In 1 week Patient/Caregiver Discharge Instructions Print Language: Syriac
--- NOTE | 2024-07-23 23:23 | EDNOTE_ITS ---
<Statement entered by Jenniffer Santana MD - 08/03/24 17:37> As co-signing physician, I was present and available for consult prn. I concur with the plan and care as documented by the midlevel provider. ED Abdominal Pain RME/HPI General Chief Complaint: Abdominal Pain Stated complaint: SENT FROM MD OFFICE FOR CHRONIC ABD PAIN Time seen by provider: 07/23/24 22:06 Arrival date/time: 07/23/24 17:32 78-year-old female presents emergency department complaining of right upper quadrant abdominal pain after a meal. Patient denies any fever, chills, nausea vomiting, diarrhea, shortness of breath, chest pain, flank pain, or any other associated symptom. Source: patient Mode of arrival: ambulatory Limitations: no limitations Related Data Home Medications ?Medication ?Instructions ?Recorded ?Confirmed Bifidobacterium infantis 4 mg 4 mg PO DAILY 06/27/23 06/11/24 capsule (Align) acetaminophen 500 mg tablet 500 mg PO PRN PRN Pain 06/27/23 10/28/23 cholecalciferol (vitamin D3) 25 25 mcg PO 1XD 06/27/23 10/28/23 mcg (1,000 unit) tablet (Vitamin D3) levothyroxine 50 mcg tablet 50 mcg PO DAILY 06/27/23 06/11/24 metformin 500 mg tablet 500 mg PO DAILY 06/27/23 06/11/24 duloxetine 60 mg capsule,delayed 60 mg PO QDAY 08/23/23 06/11/24 release alprazolam 0.5 mg tablet 0.5 mg PO BID PRN Anxiety 10/28/23 06/11/24 benazepril 20 mg tablet 20 mg PO QDAY 10/28/23 06/11/24 loperamide 2 mg capsule 2 mg PO QDAY 10/28/23 10/28/23 pantoprazole 40 mg tablet,delayed 40 mg PO QDAY 10/28/23 06/11/24 release apixaban 5 mg tablet (Eliquis) 5 mg PO QDAY 06/11/24 06/11/24 Previous Rx's ?Medication ?Instructions ?Recorded famotidine 20 mg tablet 20 mg PO BID #20 tabs 11/01/23 ondansetron 4 mg disintegrating 4 mg PO Q8H PRN nausea and 02/22/24 tablet vomiting #30 tabs sucralfate 100 mg/mL oral 5 ml PO QID #420 mL 04/10/24 suspension (Carafate) acetaminophen 300 mg-codeine 30 mg 2 tab PO TID PRN pain #20 tabs 07/02/24 tablet cefdinir 300 mg capsule 300 mg PO BID #14 caps 07/02/24 lidocaine HCl 2 % mucosal solution 5 ml PO TIDPC PRN dyspepsia #300 mL 07/02/24 (Lidocaine Viscous) sucralfate 100 mg/mL oral 10 ml PO TID #500 mL 07/02/24 suspension (Carafate) Allergies Allergy/AdvReac Type Severity Reaction Status Date / Time amoxicillin [From Augmentin] Allergy Severe Hives Verified 07/23/24 17:36 aspirin Allergy Severe Abdominal Verified 07/23/24 17:36 Pain ciprofloxacin [From Cipro] Allergy Severe Gastrointestinal Verified 07/23/24 17:36 Upset clavulanic acid Allergy Severe Hives Verified 07/23/24 17:36 [From Augmentin] codeine Allergy Severe Nausea Verified 07/23/24 17:36 fluconazole Allergy Severe Rash Verified 07/23/24 17:36 gabapentin Allergy Severe Abdominal Verified 07/23/24 17:36 Pain ketorolac [From Toradol] Allergy Severe Abdominal Verified 07/23/24 17:36 Pain nalbuphine Allergy Severe Abdominal Verified 07/23/24 17:36 Pain Sulfa (Sulfonamide Allergy Severe Hives Verified 07/23/24 17:36 Antibiotics) tizanidine Allergy Severe Rash Verified 07/23/24 17:36 tramadol Allergy Severe Rash Verified 07/23/24 17:36 Review of Systems Review of Systems Systems Reviewed: All systems reviewed, normal except as documented Constitutional Constitutional: Reports system reviewed and no additional complaints, except as documented, Denies body ache(s), Denies chills and Denies fever(s) Eyes Eyes: Reports system reviewed and no additional complaints, except as documented and Denies change in vision ENT Ears, Nose, Mouth, and Throat: Reports system reviewed and no additional complaints, except as documented, Denies disequilibrium, Denies dizziness, Denies sore throat and Denies vertigo Cardiovascular Cardiovascular: Reports system reviewed and no additional complaints, except as documented, Denies chest pain and Denies dyspnea Respiratory Respiratory: Reports system reviewed and no additional complaints, except as documented, Denies chest congestion, Denies cough and Denies dyspnea Gastrointestinal Gastrointestinal: Reports system reviewed and no additional complaints, except as documented, Reports abdominal pain, Denies nausea and Denies vomiting Musculoskeletal Musculoskeletal: Reports system reviewed and no additional complaints, except as documented, Denies abnormal gait and Denies arthralgias Integumentary/Breasts Skin/Breast: Reports system reviewed and no additional complaints, except as documented, Denies erythema, Denies rash and Denies wounds Neurologic Neurologic: Reports system reviewed and no additional complaints, except as documented, Denies abnormal gait, Denies disequilibrium, Denies dizziness and Denies vertigo Past Medical History Past Medical History NEUROLOGIC: Negative Neurological Disorders or Seizures CARDIAC: Positive Cardiac Disorders (A FIB), Cardiac Arrhythmia, Atrial Fibrillation, Hypercholesterolemia and Hypertension; Negative Congestive Heart Failure RESPIRATORY: Positive Pneumonia and Sleep Apnea; Negative Chronic Obstructive Pulmonary Disease (COPD) or Asthma GASTROINTESTINAL: Positive Gastrointestinal Bleed, Ulcerative Colitis, Diverticulitis, Diverticulosis, Irritable Bowel, Obstructive Bowel, Hemorrhoids and Obesity GENITOURINARY: Negative Renal Disease ENT: Positive Cataracts and Ear Infection ENDOCRINE: Positive Diabetes Mellitus Type 2 and Hypothyroidism; Negative Diabetes Mellitus Type 1 HEMATOLOGIC: Negative Sickle Cell Disease PSYCHO/SOCIAL: Positive Anxiety OTHER HISTORY: Positive Falls, Blood Transfusions, Anesthesia Reactions, Chicken Pox, Mumps and Clostridium Difficile; Negative Cancer Family History FAMILY HISTORY: Positive Family Cardiac Disorders; Negative Family Respiratory Disorders Surgical History SURGICAL: Positive Cardiac Surgery, Thyroidectomy, Joint Replacement, Hysterectomy and Section Social History SMOKING STATUS: Never smoker SUBSTANCE USE: does not use ED Exam General Limitations: Present no limitations General appearance: Present alert and in no apparent distress Head Head exam: Present atraumatic Eye Eye exam: Present normal appearance, PERRL and EOMI ENT ENT exam: Present normal exam, normal oropharynx and mucous membranes moist Neck Neck exam: Present normal inspection, full ROM and trachea midline Chest Chest inspection: Present normal inspection and symmetric chest wall rise Respiratory Respiratory exam: Present normal lung sounds bilaterally Cardiovascular Cardiovascular exam: Present regular rate, normal rhythm and normal heart sounds Abdominal Exam Abdominal exam: Present soft and normal bowel sounds; Absent tenderness, guarding, rebound or Spencer's sign Extremities Exam Extremities exam: Present normal inspection and full ROM Back Exam Back exam: Present normal inspection and full ROM Neurological Exam Neurological exam: Present alert, oriented X3 and CN II-XII intact Psychiatric Psychiatric exam: Present normal affect and normal mood Skin Skin exam: Present warm, dry, intact and normal color Course Quality Measures none Orders Category Date Time Status EKG (ED ONLY) *Do not use* NOW Care 07/23/24 17:48 Completed EKG (ED Only) Stat Exams 07/23/24 17:48 Draft US gall bladder Stat Exams 07/23/24 17:48 Completed CBC Stat Lab 07/23/24 18:19 Completed CMP [Comprehensive Metabolic Panel] Stat Lab 07/23/24 18:19 Completed Lipase Stat Lab 07/23/24 18:19 Completed Troponin I Stat Lab 07/23/24 18:19 Completed UA [Urinalysis] Stat Lab 07/23/24 18:20 Completed Vital Signs Vital signs: Vital Signs Temperature 98.1 F 07/23/24 17:35 Pulse Rate 86 07/23/24 17:35 Respiratory Rate 19 07/23/24 17:35 Blood Pressure 151/72 H 07/23/24 17:35 Pulse Oximetry (%) 98 07/23/24 17:35 Oxygen Delivery Method Room Air 07/23/24 17:35 98% room air within normal limits Procedures -ED EKG Interpretation #1: Date of EK07/23/24 Time of EK:00 Rate: 87 Interpretation: Interpreted by me EKG Impression: Normal sinus rhythm, No acute ST-T changes, No ectopy and No ischemic changes Abdominal Pain MDM MDM Narrative MDM Narrative:: 78-year-old female presents emergency department complaining of right upper quadrant abdominal pain after a meal. Patient denies any fever, chills, nausea vomiting, diarrhea, shortness of breath, chest pain, flank pain, or any other associated symptom. Patient's abdomen is soft and nontender. CBC was unremarkable for any leukocytosis. CMP was unremarkable. Urinalysis was unremarkable. Ultrasound of gallbladder was unremarkable. EKG sinus rhythm with troponin within normal limits. Patient appears nontoxic and is hemodynamically stable. Patient discharged and instructed to follow-up with GI specialist as she normally sees Dr. Osuna for possible endoscopy and also primary care provider. Instructed to return to the emergency department for any worsening symptoms or as needed. Patient data External records reviewed:: [facility] previous records Clinical information provided by:: patient Social determinants that could affect healthcare access:: none Patient has the following chronic illnesses:: See chart How is presenting disease/condition affected by chronic disease/condition?: uneffected by Evaluation data The following diagnostics were reviewed and interpreted by me:: lab results, radiology exam(s) and EKG tracing(s) Lab and/or radiology exams considered but not ordered:: Ordered Interpretation Summary: Interpreted by me Medications / Prescriptions Medications or Prescriptions considered but not ordered:: N/A Medication administrations:: N/A Consultations Consultation(s) initiated? (list below): No Diagnosis Differential diagnosis abdominal pain: abdominal pain, acute appendicitis, calculus of kidney, constipation, diverticulitis, endometriosis, gastroenteritis, pancreatitis and small bowel obstruction Most likely diagnosis given after review of the tests above:: Abdominal pain Admission Indicated Admission indicated?: not indicated Admission Request Was there a request for admission?: No Disposition Plan Disposition Plan: Discharge Discharge Attestation Discharge Attestation: The patient and all family members were given an opportunity to ask questions and understood the discharge instructions. Discharge instructions specifically effects, indications for sooner follow up or return to the emergency department, and the expected course of current diagnosis. Patient condition: Stable Discharge Plan Plan Patient Disposition: HOME (Self Care) Disposition Comment: Stable Prescriptions/Referrals Prescriptions/Med Rec: No Action metformin 500 mg Tablet 500 mg PO DAILY acetaminophen 500 mg Tablet 500 mg PO PRN MDD 4 PRN (Reason: Pain) levothyroxine 50 mcg Tablet 50 mcg PO DAILY cholecalciferol (vitamin D3) [Vitamin D3] 25 mcg (1,000 unit) Tablet 25 mcg PO 1XD Align 4 mg Capsule 4 mg PO DAILY duloxetine 60 mg capsule,delayed release(DR/EC) 60 mg PO QDAY Rx Instructions: Takes 80mg in the afternoon loperamide 2 mg capsule 2 mg PO QDAY alprazolam 0.5 mg tablet 0.5 mg PO BID PRN (Reason: Anxiety) Hold Instructions: Resume on 10/29/23. Patient Comments: TAKE 1 TABLET BY MOUTH THREE TIMES DAILY NEEDED FOR ANXIETY pantoprazole 40 mg tablet,delayed release (DR/EC) 40 mg PO QDAY Patient Comments: TAKE 1 TABLET BY MOUTH DAILY benazepril 20 mg tablet 20 mg PO QDAY famotidine 20 mg tablet 20 mg PO BID Qty: 20 0RF ondansetron 4 mg tablet,disintegrating 4 mg PO Q8H PRN (Reason: nausea and vomiting) Qty: 30 0RF lidocaine HCl [Lidocaine Viscous] 2 % solution 5 ml PO TIDPC MDD 15 mL PRN (Reason: dyspepsia) Qty: 300 0RF sucralfate [Carafate] 100 mg/mL suspension 10 ml PO TID Qty: 500 0RF Rx Instructions: swish in mouth and swallow; use after food/drink acetaminophen-codeine 300-30 mg tablet 2 tab PO TID MDD 6 PRN (Reason: pain) Qty: 20 0RF cefdinir 300 mg capsule 300 mg PO BID Qty: 14 0RF sucralfate [Carafate] 100 mg/mL suspension 5 ml PO QID Qty: 420 0RF Rx Instructions: swish in mouth and swallow; use after food/drink Eliquis 5 mg Tablet 5 mg PO QDAY Referrals: Tyrone Langford MD [Primary Care Provider] - In 1 week Problem List Clinical Impression: Abdominal pain Patient/Caregiver Discharge Instructions Discharge Activity: activity as tolerated Education Materials: Abdominal Pain, ED Pain, Acute, Uncertain Cause Additional Instructions: Take Tylenol as needed for pain. Follow-up with primary care provider and GI specialist Dr. Osuna as discussed. Return to the emergency department for any worsening symptoms or as needed. Print Language: Bulgarian Stand Alone Forms: [employer] Award Info., Patient Portal Info Letter PA/MAINTENANCE SHOP MANAGER Supervising Physician PA/MAINTENANCE SHOP MANAGER Supervising Physician: Dr. Santana
[2024-07-23 23:29] VITALS: RESP 18
== END 2024-07-23 23:30 | disposition home or self-care (01) ==
PROVIDERS: Physician Assistant; Emergency Provider Emergency Medicine; PCP Family Medicine
DX: R10.11 Right upper quadrant pain (principal); I10 Essential (primary) hypertension; E78.00 Pure hypercholesterolemia, unspecified; I48.91 Unspecified atrial fibrillation; Z79.01 Long term (current) use of anticoagulants
CPT/HCPCS: 36415; 76705; 80053; 81001; 83690; 84484; 85025; 93005; 99284

== ENCOUNTER 2024-07-26 03:57 | Emergency (ER) | payer MEDICARE, BC, SELFPAY ==
[2024-07-26 04:04] VITALS: BP 180/81; PULSE 71; PULSE 88; RESP 18; TEMP 36.6; O2SAT 98; O2SAT 99; BMI 27.4
[2024-07-26 04:06] VITALS: BMI 20.7
--- NOTE | 2024-07-26 04:09 | PD.EDRME ---
Rapid Medical Screening Exam RME Arrival date/time: 07/26/24 03:57 78 year old female present to ED for c/o of weakness, n/v, dizziness. I have greeted and performed a focused initial assessment of this patient. A comprehensive ED assessment and evaluation of the patient, analysis of all test results, and completion of the medical decision making process will be conducted by additional ED providers. Chief Complaint: Weakness Vital signs: Vital Signs Temperature 97.8 F 07/26/24 04:04 Pulse Rate 71 07/26/24 04:04 Respiratory Rate 18 07/26/24 04:04 Blood Pressure 180/81 H 07/26/24 04:04 Pulse Oximetry (%) 99 07/26/24 04:04 Oxygen Delivery Method Room Air 07/26/24 04:04
--- NOTE | 2024-07-26 04:10 | EKG_ITS ---
[facility] Test Date: 2024-07-26 Pat Name: MARIBEL ALAMO Department: Room: - Gender: Female Pattern [employer] Person: : 1945 Requested By: Rowdy Perkins Order Number: [id number] Reading MD: Rowdy Perkins Measurements Intervals [place] Rate: 73 P: 64 KS: 148 QRS: -7 QRSD: 104 T: 55 QT: 367 QTc: 406 Interpretive Statements SINUS RHYTHM WITH OCCASIONAL SUPRAVENTRICULAR PREMATURE COMPLEXES ANTEROSEPTAL MYOCARDIAL INFARCTION , OF INDETERMINATE AGE [40+ ms Q WAVE IN V1-V4] Compared to ECG 07/23/2024 18:00:14 No significant changes /store/S0/[id number].pdf
[2024-07-26] MEDS: ONDANSETRON ODT 4 MG TABRAP PO (04:46)
--- NOTE | 2024-07-26 05:04 | PC.NURSE ---
patient eloped the er refused to wait and labs provider notified.
== END 2024-07-26 05:05 | disposition left against medical advice (07) ==
PROVIDERS: Emergency Provider Emergency Medicine; PCP Family Medicine
DX: R53.1 Weakness (principal); R11.2 Nausea with vomiting, unspecified; R42 Dizziness and giddiness; I49.1 Atrial premature depolarization; Z53.29 Procedure and treatment not carried out because of patient's decision for other reasons
CPT/HCPCS: 80053; 81001; 83690; 84484; 85025; 87086; 93005; 99281; Q0162

== ENCOUNTER 2024-07-26 18:43 | Emergency (ER) | payer MEDICARE, BC, SELFPAY ==
[2024-07-26 18:50] VITALS: BP 188/77; PULSE 72; RESP 16; TEMP 36.9; O2SAT 96; BMI 31.2
[2024-07-26 19:14] VITALS: PULSE 78; RESP 18; O2SAT 97
--- NOTE | 2024-07-26 20:06 | PD.EDABDPN ---
ED Abdominal Pain RME/HPI General Chief Complaint: Abdominal Pain Stated complaint: ABD PAIN Time seen by provider: 07/26/24 19:42 Arrival date/time: 07/26/24 18:43 Limitations: no limitations RME / HPI RME / HPI narrative: DR. MOON MAIN ED EVALUATION: 78 year old female presents to the Emergency Department with complaint of chronic abdominal pain. Pain is described as aching and rated mild to moderate in severity. No modifying factors or radiation reported at this time. PMHx: Atrial fibrillation, hypertension, diabetes, duodenal ulcer, chronic pain. Social Hx: No tobacco, alcohol, or substance use. Related Data Home Medications ?Medication ?Instructions ?Recorded ?Confirmed Bifidobacterium infantis 4 mg 4 mg PO DAILY 06/27/23 06/11/24 capsule (Align) acetaminophen 500 mg tablet 500 mg PO PRN PRN Pain 06/27/23 10/28/23 cholecalciferol (vitamin D3) 25 25 mcg PO 1XD 06/27/23 10/28/23 mcg (1,000 unit) tablet (Vitamin D3) levothyroxine 50 mcg tablet 50 mcg PO DAILY 06/27/23 06/11/24 metformin 500 mg tablet 500 mg PO DAILY 06/27/23 06/11/24 duloxetine 60 mg capsule,delayed 60 mg PO QDAY 08/23/23 06/11/24 release alprazolam 0.5 mg tablet 0.5 mg PO BID PRN Anxiety 10/28/23 06/11/24 benazepril 20 mg tablet 20 mg PO QDAY 10/28/23 06/11/24 loperamide 2 mg capsule 2 mg PO QDAY 10/28/23 10/28/23 pantoprazole 40 mg tablet,delayed 40 mg PO QDAY 10/28/23 06/11/24 release apixaban 5 mg tablet (Eliquis) 5 mg PO QDAY 06/11/24 06/11/24 Previous Rx's ?Medication ?Instructions ?Recorded famotidine 20 mg tablet 20 mg PO BID #20 tabs 11/01/23 ondansetron 4 mg disintegrating 4 mg PO Q8H PRN nausea and 02/22/24 tablet vomiting #30 tabs sucralfate 100 mg/mL oral 5 ml PO QID #420 mL 04/10/24 suspension (Carafate) acetaminophen 300 mg-codeine 30 mg 2 tab PO TID PRN pain #20 tabs 07/02/24 tablet cefdinir 300 mg capsule 300 mg PO BID #14 caps 07/02/24 lidocaine HCl 2 % mucosal solution 5 ml PO TIDPC PRN dyspepsia #300 mL 07/02/24 (Lidocaine Viscous) sucralfate 100 mg/mL oral 10 ml PO TID #500 mL 07/02/24 suspension (Carafate) Allergies Allergy/AdvReac Type Severity Reaction Status Date / Time amoxicillin [From Augmentin] Allergy Severe Hives Verified 07/23/24 17:36 aspirin Allergy Severe Abdominal Verified 07/23/24 17:36 Pain ciprofloxacin [From Cipro] Allergy Severe Gastrointestinal Verified 07/23/24 17:36 Upset clavulanic acid Allergy Severe Hives Verified 07/23/24 17:36 [From Augmentin] codeine Allergy Severe Nausea Verified 07/23/24 17:36 fluconazole Allergy Severe Rash Verified 07/23/24 17:36 gabapentin Allergy Severe Abdominal Verified 07/23/24 17:36 Pain ketorolac [From Toradol] Allergy Severe Abdominal Verified 07/23/24 17:36 Pain nalbuphine Allergy Severe Abdominal Verified 07/23/24 17:36 Pain Sulfa (Sulfonamide Allergy Severe Hives Verified 07/23/24 17:36 Antibiotics) tizanidine Allergy Severe Rash Verified 07/23/24 17:36 tramadol Allergy Severe Rash Verified 07/23/24 17:36 Review of Systems Review of Systems Systems Reviewed: All systems reviewed, normal except as documented Narrative Review of Systems: GEN: No fever, no chills, no weight loss EYES: No discharge, no visual changes, no pain HEENT: No ear pain, no congestion, no sore throat PULM: No shortness of breath, no cough, no congestion CV: No chest pain, no dyspnea on exertion, no palpitations GI: No nausea, no vomiting, no diarrhea, + chronic abdominal pain, no constipation : No frequency, no urgency and no dysuria MUSC/SKEL: No joint pain, no back pain SKIN: No rash PSYCH: No hallucinations, no depression HEME/LYMPH: No easy bleeding or bruising tendencies NEURO: No weakness, no headache Past Medical History Past Medical History NEUROLOGIC: Negative Neurological Disorders or Seizures CARDIAC: Positive Cardiac Disorders (A FIB), Cardiac Arrhythmia, Atrial Fibrillation, Hypercholesterolemia and Hypertension; Negative Congestive Heart Failure RESPIRATORY: Positive Pneumonia and Sleep Apnea; Negative Chronic Obstructive Pulmonary Disease (COPD) or Asthma GASTROINTESTINAL: Positive Gastrointestinal Bleed, Ulcerative Colitis, Diverticulitis, Diverticulosis, Irritable Bowel, Obstructive Bowel, Hemorrhoids and Obesity GENITOURINARY: Negative Renal Disease ENT: Positive Cataracts and Ear Infection ENDOCRINE: Positive Diabetes Mellitus Type 2 and Hypothyroidism; Negative Diabetes Mellitus Type 1 HEMATOLOGIC: Negative Sickle Cell Disease PSYCHO/SOCIAL: Positive Anxiety OTHER HISTORY: Positive Falls, Blood Transfusions, Anesthesia Reactions, Chicken Pox, Mumps and Clostridium Difficile; Negative Cancer Family History FAMILY HISTORY: Positive Family Cardiac Disorders; Negative Family Respiratory Disorders Surgical History SURGICAL: Positive Cardiac Surgery, Thyroidectomy, Joint Replacement, Hysterectomy and Section Social History SMOKING STATUS: Never smoker SUBSTANCE USE: does not use ED Exam General Limitations: Present no limitations General appearance: Present alert and in no apparent distress Head Head exam: Present atraumatic Eye Eye exam: Present normal appearance, PERRL and EOMI ENT ENT exam: Present normal exam, normal oropharynx and mucous membranes moist Neck Neck exam: Present normal inspection, full ROM and trachea midline Chest Chest inspection: Present normal inspection and symmetric chest wall rise Respiratory Respiratory exam: Present normal lung sounds bilaterally Cardiovascular Cardiovascular exam: Present regular rate, normal rhythm and normal heart sounds Abdominal Exam Abdominal exam: Present soft and normal bowel sounds Back Exam Back exam: Present normal inspection and full ROM Neurological Exam Neurological exam: Present alert, oriented X3 and CN II-XII intact Psychiatric Psychiatric exam: Present normal affect and normal mood Skin Skin exam: Present warm, dry, intact and normal color Course Quality Measures none Orders Category Date Time Status Ondansetron Odt [Zofran Odt] Med 07/26/24 20:05 Discontinued 4 mg PO X1 ONE Reevaluation(s) Reevaluation #1: Patient remains clinically stable throughout the emergency department visit. Re-assessment at the time of disposition demonstrates that the patient is in no acute distress. We reviewed all the results, analysis, and treatment plans. Patient is amenable to discharge. Strict return precautions were outlined. Patient was discharged in stable condition. Time: 21:40 Vital Signs Vital signs: Vital Signs Temperature 98.5 F 07/26/24 18:50 Pulse Rate 72 07/26/24 18:50 Respiratory Rate 16 07/26/24 18:50 Blood Pressure 188/77 H 07/26/24 18:50 Pulse Oximetry (%) 96 07/26/24 18:50 Oxygen Delivery Method Room Air 07/26/24 18:50 Abdominal Pain MDM MDM Narrative MDM Narrative:: ISandra am scribing for and in the presence of Dr. Moon. Patient data External records reviewed:: [facility] previous records (Reviewed last ED visit dated 07/23/24, discharged with the following: Abdominal pain.) and EMS form Clinical information provided by:: patient and EMS Social determinants that could affect healthcare access:: none Patient has the following chronic illnesses:: Atrial fibrillation, hypertension, diabetes, duodenal ulcer, chronic pain. How is presenting disease/condition affected by chronic disease/condition?: exacerbated by Evaluation data The following diagnostics were reviewed and interpreted by me:: other (specify) (none) Lab and/or radiology exams considered but not ordered:: none Interpretation Summary: n/a Medications / Prescriptions Medications or Prescriptions considered but not ordered:: none Medication administrations:: Medication Administration History Discontinued Medications Ondansetron HCl (Ondansetron Odt 4 Mg Tabrap) 4 mg PO X1 ONE; Protocol Stop: 07/26/24 20:06 Last Admin: 07/26/24 20:21 Dose: 4 mg Documented By: MP see above Consultations Consultation(s) initiated? (list below): No Diagnosis Differential diagnosis abdominal pain: abdominal pain, constipation and other (chronic abdominal pain, GERD) Most likely diagnosis given after review of the tests above:: Chronic abdominal pain Admission Indicated Admission indicated?: not indicated Admission Request Was there a request for admission?: No Disposition Plan Disposition Plan: Discharge Discharge Attestation Discharge Attestation: The patient and all family members were given an opportunity to ask questions and understood the discharge instructions. Discharge instructions specifically effects, indications for sooner follow up or return to the emergency department, and the expected course of current diagnosis. Patient condition: Stable Discharge Plan Plan Patient Disposition: HOME (Self Care) Prescriptions/Referrals Prescriptions/Med Rec: No Action metformin 500 mg Tablet 500 mg PO DAILY acetaminophen 500 mg Tablet 500 mg PO PRN MDD 4 PRN (Reason: Pain) levothyroxine 50 mcg Tablet 50 mcg PO DAILY cholecalciferol (vitamin D3) [Vitamin D3] 25 mcg (1,000 unit) Tablet 25 mcg PO 1XD Align 4 mg Capsule 4 mg PO DAILY duloxetine 60 mg capsule,delayed release(DR/EC) 60 mg PO QDAY Rx Instructions: Takes 80mg in the afternoon loperamide 2 mg capsule 2 mg PO QDAY alprazolam 0.5 mg tablet 0.5 mg PO BID PRN (Reason: Anxiety) Hold Instructions: Resume on 10/29/23. Patient Comments: TAKE 1 TABLET BY MOUTH THREE TIMES DAILY NEEDED FOR ANXIETY pantoprazole 40 mg tablet,delayed release (DR/EC) 40 mg PO QDAY Patient Comments: TAKE 1 TABLET BY MOUTH DAILY benazepril 20 mg tablet 20 mg PO QDAY famotidine 20 mg tablet 20 mg PO BID Qty: 20 0RF ondansetron 4 mg tablet,disintegrating 4 mg PO Q8H PRN (Reason: nausea and vomiting) Qty: 30 0RF lidocaine HCl [Lidocaine Viscous] 2 % solution 5 ml PO TIDPC MDD 15 mL PRN (Reason: dyspepsia) Qty: 300 0RF sucralfate [Carafate] 100 mg/mL suspension 10 ml PO TID Qty: 500 0RF Rx Instructions: swish in mouth and swallow; use after food/drink acetaminophen-codeine 300-30 mg tablet 2 tab PO TID MDD 6 PRN (Reason: pain) Qty: 20 0RF cefdinir 300 mg capsule 300 mg PO BID Qty: 14 0RF sucralfate [Carafate] 100 mg/mL suspension 5 ml PO QID Qty: 420 0RF Rx Instructions: swish in mouth and swallow; use after food/drink Eliquis 5 mg Tablet 5 mg PO QDAY Referrals: Tyrone Langford MD [Primary Care Provider] - In 1 week Problem List Clinical Impression: Chronic abdominal pain Patient/Caregiver Discharge Instructions Additional Instructions: See your primary care provider tomorrow as discussed. Return to emergency department for worsening symptoms or any other concerns. Print Language: Estonian Stand Alone Forms: [employer] Award Info., Patient Portal Info Letter
[2024-07-26] MEDS: ONDANSETRON ODT 4 MG TABRAP PO (20:21)
== END 2024-07-26 22:38 | disposition home or self-care (01) ==
PROVIDERS: Emergency Provider Emergency Medicine; PCP Family Medicine
DX: G89.29 Other chronic pain (principal); R10.9 Unspecified abdominal pain
CPT/HCPCS: 99283; Q0162

== ENCOUNTER → 2024-07-26 | Outpatient (CLI) | payer MEDICARE, BC, SELFPAY ==
[2024-08-02 06:45] LABS: Calprotectin, Stool* 133 mcg/g; Fecal Globin Result DETECTED (NOT DETECTED)
== END | disposition home or self-care (01) ==
PROVIDERS: Referring Provider Nurse Practitioner Family; Visit Provider Nurse Practitioner Family
DX: Z12.11 Encounter for screening for malignant neoplasm of colon (principal); K58.8 Other irritable bowel syndrome
CPT/HCPCS: 82274; 83993; G0328

== ENCOUNTER 2024-08-12 17:24 | Emergency (ER) | payer MEDICARE, BC, SELFPAY ==
[2024-08-12 17:51] VITALS: BP 159/77; PULSE 93; RESP 19; TEMP 36.9; O2SAT 98; BMI 28.7
--- NOTE | 2024-08-12 17:55 | XR_ITS ---
Examination: Abdomen sonogram, Limited Date and time of exam: August 12, 2024 1833 hrs. Indications: Right upper abdominal pain beginning 2 days ago, history duodenal ulcer disease Technique: Real-time bowling scale transabdominal sonographic images of the upper abdomen obtained. Findings: Normal common bile duct 0.3 cm Pancreatic head 2.7 cm Liver 15.8 cm smooth contour no focal liver lesions Normal hepatopedal portal venous flow Patent IVC Impression: Negative study
--- NOTE | 2024-08-12 17:56 | EDRME_ITS ---
Rapid Medical Screening Exam [facility] Arrival date/time: 08/12/24 17:24 78-year-old female with a history of hypertension, hypothyroidism, type 2 diabetes presents to the emergency room with a chief complaint of 8 out of 10 epigastric pain and tenderness that radiates to the right upper quadrant x 1 day. Patient is also having bloating and nausea. I have greeted and performed a focused initial assessment of this patient. A comprehensive ED assessment and evaluation of the patient, analysis of all test results, and completion of the medical decision making process will be conducted by additional ED providers. Chief Complaint: Abdominal Pain Vital signs: Vital Signs Temperature 98.4 F 08/12/24 17:51 Pulse Rate 93 08/12/24 17:51 Respiratory Rate 19 08/12/24 17:51 Blood Pressure 159/77 H 08/12/24 17:51 Pulse Oximetry (%) 98 08/12/24 17:51 Oxygen Delivery Method Room Air 08/12/24 17:51 Vital signs reviewed by provider: Yes
[2024-08-12] MEDS: MG HYD/AL HYD/SIME (Maalox Reg) SUSP 30 ML UDC PO (17:58)
[2024-08-12] MEDS: ONDANSETRON ODT 4 MG TABRAP PO (18:01)
[2024-08-12 18:24] LABS: Basophils % (Auto) 0 % (0-2.5); Eosinophils % (Auto) 0 % (0-10); Immature Granulocytes % (Auto) 0 % (0-0); Immature Granulocytes Auto 0.02 Thou/mm3 (0.00-0.00); Lymphocytes # (Auto) 2.1 Thou/mm3 (1.0-4.8); Lymphocytes % (Auto) 23 % (10-50); Mean Corpuscular HGB Conc 31.3 g/dl (31.0-37.0); Mean Corpuscular Volume 77 fL (80-100); Monocytes # (Auto) 0.9 Thou/mm3 (0.0-0.8); Monocytes % (Auto) 10 % (0-12); Neutrophils % (Auto) 66 % (37-80); Nucleated Red Blood Cell % 0 /100 WBC (0); Platelet Count 452 Thou/mm3 (140-440); RDW Standard Deviation 47.1 fL (36.4-46.3); Red Blood Count 4.16 Miln/mm3 (4.00-5.20); White Blood Count 9.1 Thou/mm3 (3.6-11.0)
[2024-08-12 18:45] LABS: Alanine Aminotransferase 17 U/L (10-49); Albumin, Serum 5.2 gm/dL (3.4-4.8); Albumin/Globulin Ratio 1.6 (1.2-2.2); Alkaline Phosphatase 82 U/L (46-116); Anion Gap 9 (7-16); Aspartate Amino Transferase 14 U/L (0-34); BUN/Creatinine Ratio 18 Ratio (12-20); Bilirubin,Total 0.3 mg/dL (0.3-1.2); Blood Urea Nitrogen 18 mg/dL (9-23); Calcium 10.1 mg/dL (8.3-10.6); Calcium (Corrected) 10.1 mg/dL (8.5-10.1); Chloride 101 mMol/L (98-107); Globulin 3.2 gm/dL (2.3-3.5); Glucose 129 mg/dL (74-106); Lipase 33 U/L (12-53); Osmolality,Calculated 281 (275-295); Potassium 4.4 mMol/L (3.4-5.1); Sodium 139 mMol/L (136-145); Total Protein 8.4 gm/dL (5.7-8.2); eGFR 58 See Note
[2024-08-12 18:56] LABS: Collection Type, Urine Clean Catch
[2024-08-12 19:09] LABS: Bilirubin,Urine Negative (Negative); Blood,Urine Negative (Negative); Clarity,Urine Clear (Clear/Hazy); Color,Urine Yellow (Lt Yel-Yel); Glucose, Urine Negative (Negative); Ketones,Urine Negative (Negative); Leukocyte Esterase,Urine Positive (Negative); Nitrite,Urine Negative (Negative); Protein,Urine Negative (Neg - Trace); RBC,Urine 2 /hpf (0-3); Specific Gravity,Urine 1.017 (1.001-1.035); Squamous Epithelial Cell,Urine 5 /hpf (0-5); Urobilinogen,Urine Negative mg/dL (0.0-1.0); WBC,Urine 12 /hpf (0-5)
== END 2024-08-12 19:19 | disposition left against medical advice (07) ==
PROVIDERS: Nurse Practitioner Family; Emergency Provider Emergency Medicine; PCP Family Medicine
DX: R10.13 Epigastric pain (principal); E03.9 Hypothyroidism, unspecified; I10 Essential (primary) hypertension; E11.9 Type 2 diabetes mellitus without complications; Z53.29 Procedure and treatment not carried out because of patient's decision for other reasons
CPT/HCPCS: 36415; 76705; 80053; 81001; 83690; 85025; 87086; 99281; Q0162; A9270

== ENCOUNTER 2024-08-14 08:07 | Emergency (ER) | payer MEDICARE, BC, SELFPAY ==
[2024-08-14 08:09] VITALS: PULSE 75; RESP 18; O2SAT 95; BMI 27.4
[2024-08-14 08:26] VITALS: BP 136/81; PULSE 75; RESP 18; TEMP 36.7; O2SAT 95
--- NOTE | 2024-08-14 08:52 | EDRME_ITS ---
Rapid Medical Screening Exam [facility] Arrival date/time: 08/14/24 08:07 Chief Complaint: Fall Time Seen by Provider: 08/14/24 08:30 Vital signs: Vital Signs Temperature 98.1 F 08/14/24 08:26 Pulse Rate 75 08/14/24 08:26 Respiratory Rate 18 08/14/24 08:26 Blood Pressure 136/81 H 08/14/24 08:26 Pulse Oximetry (%) 95 08/14/24 08:26 Oxygen Delivery Method Room Air 08/14/24 08:26 RME Narrative: 78-year-old female patient presents emergency department with complaint of back pain and right knee pain patient states that she has a history of knee replacement. Patient states that she fell from bed this morning but is unsure of how it happened. Pain is worse with palpation of her right lower back. She denies head trauma. Pain is worse with flexion of her right knee. She denies numbness and tingling to distal right lower extremity
--- NOTE | 2024-08-14 08:55 | XR_ITS ---
Examination: Knee, right , 3 views Technique: Knee AP, lateral, oblique 3 views Date and time of exam: August 14, 2024 0914 hrs. Indications: Patient fell today with injury to the knee, knee pain. Findings: Significant osteopenia Total right knee arthroplasty with satisfactory alignment No acute fracture Impression: No acute fracture
--- NOTE | 2024-08-14 08:55 | XR_ITS ---
Examination: CT lumbar spine, without contrast. 2-D sagittal reconstructions. 2-D coronal reconstructions. 3-D reconstructions. Date and time of exam:August 14, 2023 0915 hrs. Indications: Patient fell last night with injury to lower back, lower back pain CTDI: vol (mGy):26.7 DLP: (mGycm):822 Technique: Multiple 1.25 mm axial sections of the lumbar spine without intravenous contrast have been obtained. 2-D sagittal and coronal reconstructions have been obtained. 3-D reconstructions have been obtained. Low dose protocols were performed. One or more of the following dose reduction techniques were used; automated exposure control, adjustment of the mA and/or KV according to patient size, use of iterative reconstruction technique. Findings: Transpedicular lumbar stabilization L5-S1 Grade 1 anterolisthesis L5-S1 with mild disc narrowing posteriorly L5-S1 No lumbar vertebral body fracture Prominent osteopenia L5-S1 moderate to severe overall spinal stenosis secondary to the anterolisthesis as well as facet arthropathy, 4 mm central lumbar disc bulge with severe left moderate right L5 ganglionic compression L4-L5 severe spinal stenosis, 4 mm central lumbar disc bulge, facet arthropathy and thickening of ligamentum flavum producing moderate left mild right L4 ganglionic compression More cephalad levels unremarkable Impression: No acute lumbar fracture L5-S1 moderate to severe overall spinal stenosis including severe left moderate right L5 ganglionic compression L4-L5 severe acquired spinal stenosis including moderate left mild right L4 ganglionic compression
[2024-08-14] MEDS: HYDROmorphone INJ 2 MG/ML VIAL 0.5 MG IM (09:06)
[2024-08-14] MEDS: ONDANSETRON ODT 4 MG TABRAP PO (09:06)
--- NOTE | 2024-08-14 10:41 | EDNOTE_ITS ---
ED Back Injury Pain RME/HPI General Chief Complaint: Fall Stated Complaint: fall, Right knee, Right back pain Time Seen by Provider: 08/14/24 08:30 Arrival date/time: 08/14/24 08:07 RME / HPI RME / HPI Narrative: 78-year-old female patient presents emergency department with complaint of back pain and right knee pain patient states that she has a history of knee replacement. Patient states that she fell from bed this morning but is unsure of how it happened. Pain is worse with palpation of her right lower back. She denies head trauma. Pain is worse with flexion of her right knee. She denies numbness and tingling to distal right lower extremity Related Data Home Medications ?Medication ?Instructions ?Recorded ?Confirmed Bifidobacterium infantis 4 mg 4 mg PO DAILY 06/27/23 06/11/24 capsule (Align) acetaminophen 500 mg tablet 500 mg PO PRN PRN Pain 06/27/23 10/28/23 cholecalciferol (vitamin D3) 25 25 mcg PO 1XD 06/27/23 10/28/23 mcg (1,000 unit) tablet (Vitamin D3) levothyroxine 50 mcg tablet 50 mcg PO DAILY 06/27/23 06/11/24 metformin 500 mg tablet 500 mg PO DAILY 06/27/23 06/11/24 duloxetine 60 mg capsule,delayed 60 mg PO QDAY 08/23/23 06/11/24 release alprazolam 0.5 mg tablet 0.5 mg PO BID PRN Anxiety 10/28/23 06/11/24 benazepril 20 mg tablet 20 mg PO QDAY 10/28/23 06/11/24 loperamide 2 mg capsule 2 mg PO QDAY 10/28/23 10/28/23 pantoprazole 40 mg tablet,delayed 40 mg PO QDAY 10/28/23 06/11/24 release apixaban 5 mg tablet (Eliquis) 5 mg PO QDAY 06/11/24 06/11/24 Previous Rx's ?Medication ?Instructions ?Recorded famotidine 20 mg tablet 20 mg PO BID #20 tabs 11/01/23 ondansetron 4 mg disintegrating 4 mg PO Q8H PRN nausea and 02/22/24 tablet vomiting #30 tabs sucralfate 100 mg/mL oral 5 ml PO QID #420 mL 04/10/24 suspension (Carafate) acetaminophen 300 mg-codeine 30 mg 2 tab PO TID PRN pain #20 tabs 07/02/24 tablet cefdinir 300 mg capsule 300 mg PO BID #14 caps 07/02/24 lidocaine HCl 2 % mucosal solution 5 ml PO TIDPC PRN dyspepsia #300 mL 07/02/24 (Lidocaine Viscous) sucralfate 100 mg/mL oral 10 ml PO TID #500 mL 07/02/24 suspension (Carafate) Allergies Allergy/AdvReac Type Severity Reaction Status Date / Time amoxicillin [From Augmentin] Allergy Severe Hives Verified 08/12/24 17:27 aspirin Allergy Severe Abdominal Verified 08/12/24 17:27 Pain ciprofloxacin [From Cipro] Allergy Severe Gastrointestinal Verified 08/12/24 17:27 Upset clavulanic acid Allergy Severe Hives Verified 08/12/24 17:27 [From Augmentin] codeine Allergy Severe Nausea Verified 08/12/24 17:27 fluconazole Allergy Severe Rash Verified 08/12/24 17:27 gabapentin Allergy Severe Abdominal Verified 08/12/24 17:27 Pain ketorolac [From Toradol] Allergy Severe Abdominal Verified 08/12/24 17:27 Pain nalbuphine Allergy Severe Abdominal Verified 08/12/24 17:27 Pain Sulfa (Sulfonamide Allergy Severe Hives Verified 08/12/24 17:27 Antibiotics) tizanidine Allergy Severe Rash Verified 08/12/24 17:27 tramadol Allergy Severe Rash Verified 08/12/24 17:27 Review of Systems Review of Systems Systems Reviewed: All systems reviewed, normal except as documented Constitutional Constitutional: Reports system reviewed and no additional complaints, except as documented Cardiovascular Cardiovascular: Reports system reviewed and no additional complaints, except as documented Respiratory Respiratory: Reports system reviewed and no additional complaints, except as documented Musculoskeletal Musculoskeletal: Reports system reviewed and no additional complaints, except as documented Neurologic Neurologic: Reports system reviewed and no additional complaints, except as documented Psychiatric Psychiatric: Reports system reviewed and no additional complaints, except as documented ED Exam General General appearance: Present alert and in no apparent distress Head Head exam: Present atraumatic and normocephalic ENT ENT exam: Present normal exam and normal oropharynx Neck Neck exam: Present normal inspection and full ROM Chest Chest inspection: Present normal inspection and symmetric chest wall rise Respiratory Respiratory exam: Absent respiratory distress Cardiovascular Cardiovascular exam: Present regular rate and normal rhythm Extremities Exam Extremities exam: Present normal inspection and full ROM Back Exam Back exam: Present normal inspection, tenderness and paraspinal tenderness Course Quality Measures none Orders Category Date Time Status CT lumbar spine wo con Stat Exams 08/14/24 08:55 Completed XR knee RT 3V Stat Exams 08/14/24 08:55 Completed HYDROmorphone INJ [Dilaudid Inj] Med 08/14/24 08:57 Discontinued 0.5 mg IM X1 ONE Ondansetron Odt [Zofran Odt] Med 08/14/24 08:55 Discontinued 4 mg PO X1 ONE Vital Signs Vital signs: Vital Signs Temperature 98.1 F 08/14/24 08:26 Pulse Rate 75 08/14/24 08:26 Respiratory Rate 18 08/14/24 08:26 Blood Pressure 136/81 H 08/14/24 08:26 Pulse Oximetry (%) 95 08/14/24 08:26 Oxygen Delivery Method Room Air 08/14/24 08:26 Back Pain / Injury MDM Narrative MDM Narrative:: 78-year-old patient presents emergency department with complaint of back pain and right knee pain status post fall from bed earlier today. Patient denies head trauma. Patient attest to history of right knee replacement. She denies numbness and tingling to bilateral lower extremity. She denies bowel or bladder dysfunction. 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 (list below): No Diagnosis Differential diagnosis back pain/injury: strain of lumbar region Most likely diagnosis given after review of the tests above:: Lumbar sprain/knee sprain Admission Indicated Admission indicated?: not indicated Admission Request Was there a request for admission?: No Disposition Plan Disposition Plan: Discharge Discharge Attestation Discharge Attestation: The patient and all family members were given an opportunity to ask questions and understood the discharge instructions. Discharge instructions specifically effects, indications for sooner follow up or return to the emergency department, and the expected course of current diagnosis. Patient condition: Stable Discharge Plan Plan Patient Disposition: HOME (Self Care) Prescriptions/Referrals Prescriptions/Med Rec: No Action metformin 500 mg Tablet 500 mg PO DAILY acetaminophen 500 mg Tablet 500 mg PO PRN MDD 4 PRN (Reason: Pain) levothyroxine 50 mcg Tablet 50 mcg PO DAILY cholecalciferol (vitamin D3) [Vitamin D3] 25 mcg (1,000 unit) Tablet 25 mcg PO 1XD Align 4 mg Capsule 4 mg PO DAILY duloxetine 60 mg capsule,delayed release(DR/EC) 60 mg PO QDAY Rx Instructions: Takes 80mg in the afternoon loperamide 2 mg capsule 2 mg PO QDAY alprazolam 0.5 mg tablet 0.5 mg PO BID PRN (Reason: Anxiety) Hold Instructions: Resume on 10/29/23. Patient Comments: TAKE 1 TABLET BY MOUTH THREE TIMES DAILY NEEDED FOR ANXIETY pantoprazole 40 mg tablet,delayed release (DR/EC) 40 mg PO QDAY Patient Comments: TAKE 1 TABLET BY MOUTH DAILY benazepril 20 mg tablet 20 mg PO QDAY famotidine 20 mg tablet 20 mg PO BID Qty: 20 0RF ondansetron 4 mg tablet,disintegrating 4 mg PO Q8H PRN (Reason: nausea and vomiting) Qty: 30 0RF lidocaine HCl [Lidocaine Viscous] 2 % solution 5 ml PO TIDPC MDD 15 mL PRN (Reason: dyspepsia) Qty: 300 0RF sucralfate [Carafate] 100 mg/mL suspension 10 ml PO TID Qty: 500 0RF Rx Instructions: swish in mouth and swallow; use after food/drink acetaminophen-codeine 300-30 mg tablet 2 tab PO TID MDD 6 PRN (Reason: pain) Qty: 20 0RF cefdinir 300 mg capsule 300 mg PO BID Qty: 14 0RF sucralfate [Carafate] 100 mg/mL suspension 5 ml PO QID Qty: 420 0RF Rx Instructions: swish in mouth and swallow; use after food/drink Eliquis 5 mg Tablet 5 mg PO QDAY Referrals: Tyrone Langford MD [Primary Care Provider] - In 1 week Problem List Clinical Impression: Acute lumbar myofascial strain, Knee sprain Patient/Caregiver Discharge Instructions Education Materials: ED Back Sprain/Strain, ED Knee Sprain Print Language: Zambian Stand Alone Forms: [employer] Award Info., Patient Portal Info Letter
[2024-08-14 11:16] VITALS: BP 146/81; PULSE 77; RESP 17; TEMP 36.6; O2SAT 96
[2024-08-14 11:20] VITALS: BP 129/82; PULSE 81; RESP 16; TEMP 36.4; O2SAT 99
== END 2024-08-14 11:16 | disposition home or self-care (01) ==
PROVIDERS: Emergency Provider Emergency Medicine; PCP Family Medicine
DX: S39.012A Strain of muscle, fascia and tendon of lower back, initial encounter (principal); S83.91XA Sprain of unspecified site of right knee, initial encounter; W06.XXXA Fall from bed, initial encounter
CPT/HCPCS: 72131; 73562; 96372; 99284; J3490; Q0162

== ENCOUNTER → 2024-08-17 | Outpatient (CLI) | payer MEDICARE, BC, SELFPAY ==
--- NOTE | 2024-08-17 07:00 | XR_ITS ---
Examination: MRI cervical spine without intravenous contrast Date and time of exam: August 17, 2024 0653 hours INDICATIONS: Patient fell February 2024 with injury to the neck, persistent neck pain radiating down the right arm numbness in the right hand, diagnosis rheumatoid arthritis Technique: Multiple axial and sagittal sections of the cervical spine to been obtained. T2 weighted sagittal sections, TR 3, 270, TE 117 T1-weighted sagittal sections, TR 500, TE 11 T1-weighted axial sections, TR 607, TE 12, axial sections TR 18, TE 27 and T2 weighted transverse sections, TR 3920, TE 122. Findings: Adequate alignment cervical vertebral bodies No cervical fracture Intact odontoid Diffuse cervical disc desiccation Mild disc narrowing C4-C5, C5-C6 No localized enlargement cervical cord No syrinx cavity C2-C3 no disc protrusion C3-C4 disc protrusion C4-C5 no disc protrusion C5-C6 to 4 mm central subarticular osteophyte disc complex, indenting cervical cord with moderate bilateral neural foraminal stenosis C6-C7 2 mm central right paracentral osteophyte disc complex IMPRESSION: C5-C6 severe spinal stenosis, including 4 mm central subarticular osteophyte disc complex indenting the ventral margin cervical cord with moderate bilateral neural foraminal stenosis
== END | disposition home or self-care (01) ==
PROVIDERS: PCP Family Medicine; Referring Provider Physician Assistant; Visit Provider Physician Assistant
DX: M48.02 Spinal stenosis, cervical region (principal); M25.78 Osteophyte, vertebrae
CPT/HCPCS: 72141

== ENCOUNTER 2024-08-18 06:12 | Emergency (ER) | payer MEDICARE, BC, SELFPAY ==
[2024-08-18 06:12] VITALS: BMI 31.2
[2024-08-18 06:48] VITALS: BP 155/85; PULSE 79; RESP 18; TEMP 36.5; O2SAT 97
--- NOTE | 2024-08-18 06:55 | XR_ITS ---
Examination: CT abdomen and pelvis without contrast. Coronal 3-D reconstructions. Sagittal 2-D reconstructions. Date and time of exam:August 18, 2024 0819 hours INDICATIONS: Onset generalized abdominal pain with nausea today, history colonic diverticulosis, diagnosis mild diffuse nonspecific colitis on CT abdomen pelvis study July 02, 2024 CTDI: vol (mGy): 8.92 DLP: (mGycm): 480 Technique: Axial images of the abdomen have been obtained, 3 mm slice thickness Intravenous contrast material has not been administered. Low dose protocols were performed. One or more of the following dose reduction techniques were used; automated exposure control, adjustment of the mA and/or KV according to patient size, use of iterative reconstruction technique. Findings: No focal liver or splenic lesion No gallstones No pancreatic mass Mild bilateral renal parenchymal scar formation 4 mm soft calcification anterior right kidney axial image 81 No hydronephrosis or ureteral calculi 8mm posterior right renal cyst Aorta normal size Moderate stool throughout the entire colon No pericecal inflammatory change Scattered colonic diverticulosis, no diverticulitis Urinary bladder intact Absent uterus Grade 1 anterolisthesis L4 on L5, L5 on S1 with prominent osteopenia Right hip arthroplasty with satisfactory alignment Moderate to advanced narrowing left hip joint IMPRESSION: 4 mm soft calcification anterior right kidney, no hydronephrosis or ureteral calculi Moderate stool throughout the entire colon No bowel obstruction Colonic diverticulosis, no diverticulitis
[2024-08-18] MEDS: HYDROcodone/APAP 5/325 TABLET 1 TAB PO (07:02)
[2024-08-18] MEDS: FAMOTIDINE 20 MG TABLET 40 MG PO (07:02)
[2024-08-18 07:29] LABS: Collection Type, Urine Clean Catch; WBC,Urine 0 /hpf (0-5)
[2024-08-18 07:47] LABS: Basophils # (Auto) 0.1 Thou/mm3 (0.0-0.2); Basophils % (Auto) 1 % (0-2.5); Eosinophils # (Auto) 0.1 Thou/mm3 (0.0-0.5); Eosinophils % (Auto) 1 % (0-10); Hematocrit 29.3 % (36.0-46.0); Hemoglobin 8.9 g/dL (12.0-16.0); Immature Granulocytes % (Auto) 0 % (0-0); Immature Granulocytes Auto 0.02 Thou/mm3 (0.00-0.00); Lymphocytes % (Auto) 26 % (10-50); Mean Corpuscular HGB Conc 30.4 g/dl (31.0-37.0); Mean Corpuscular Hemoglobin 23.7 pg (25.0-35.0); Mean Corpuscular Volume 78 fL (80-100); Monocytes # (Auto) 0.8 Thou/mm3 (0.0-0.8); Monocytes % (Auto) 11 % (0-12); Neutrophils # (Auto) 4.5 Thou/mm3 (1.8-7.7); Neutrophils % (Auto) 61 % (37-80); Nucleated Red Blood Cell % 0 /100 WBC (0); Platelet Count 283 Thou/mm3 (140-440); RDW Standard Deviation 48.6 fL (36.4-46.3); Red Blood Count 3.76 Miln/mm3 (4.00-5.20); White Blood Count 7.4 Thou/mm3 (3.6-11.0)
[2024-08-18 07:52] LABS: Bacteria,Urine Rare; Bilirubin,Urine Negative (Negative); Blood,Urine Negative (Negative); Clarity,Urine Clear (Clear/Hazy); Color,Urine Colorless (Lt Yel-Yel); Culture Indicated,Urine Not Indicated; Glucose, Urine Negative (Negative); Ketones,Urine Negative (Negative); Leukocyte Esterase,Urine Negative (Negative); Nitrite,Urine Negative (Negative); Protein,Urine Negative (Neg - Trace); RBC,Urine < 1 /hpf (0-3); Specific Gravity,Urine 1.005 (1.001-1.035); Squamous Epithelial Cell,Urine < 1 /hpf (0-5); Urobilinogen,Urine Negative mg/dL (0.0-1.0)
[2024-08-18 07:55] LABS: Alanine Aminotransferase 21 U/L (10-49); Albumin/Globulin Ratio 1.6 (1.2-2.2); Alkaline Phosphatase 85 U/L (46-116); Anion Gap 9 (7-16); Aspartate Amino Transferase 16 U/L (0-34); BUN/Creatinine Ratio 21 Ratio (12-20); Bilirubin,Total 0.2 mg/dL (0.3-1.2); Blood Urea Nitrogen 21 mg/dL (9-23); Carbon Dioxide 28.5 mMol/L (20.0-31.0); Chloride 101 mMol/L (98-107); Estimated Creatinine Clearance 41.9 mL/min (>60); Globulin 3.1 gm/dL (2.3-3.5); Glucose 127 mg/dL (74-106); Lipase 33 U/L (12-53); Osmolality,Calculated 280 (275-295); Potassium 4.8 mMol/L (3.4-5.1); Sodium 138 mMol/L (136-145); Total Protein 8.1 gm/dL (5.7-8.2); Troponin I < 0.002 ng/mL (0.0-0.045); eGFR 58 See Note
--- NOTE | 2024-08-18 09:24 | EDNOTE_ITS ---
ED Abdominal Pain RME/HPI General Chief Complaint: Abdominal Pain Stated complaint: ABD PAIN Time seen by provider: 08/18/24 06:13 Arrival date/time: 08/18/24 06:12 78-year-old female presents to the emergency department today with complaints of acute on chronic abdominal pain patient reports no fever nausea or vomiting Limitations: no limitations Related Data Home Medications ?Medication ?Instructions ?Recorded ?Confirmed Bifidobacterium infantis 4 mg 4 mg PO DAILY 06/27/23 06/11/24 capsule (Align) acetaminophen 500 mg tablet 500 mg PO PRN PRN Pain 06/27/23 10/28/23 cholecalciferol (vitamin D3) 25 25 mcg PO 1XD 06/27/23 10/28/23 mcg (1,000 unit) tablet (Vitamin D3) levothyroxine 50 mcg tablet 50 mcg PO DAILY 06/27/23 06/11/24 metformin 500 mg tablet 500 mg PO DAILY 06/27/23 06/11/24 duloxetine 60 mg capsule,delayed 60 mg PO QDAY 08/23/23 06/11/24 release alprazolam 0.5 mg tablet 0.5 mg PO BID PRN Anxiety 10/28/23 06/11/24 benazepril 20 mg tablet 20 mg PO QDAY 10/28/23 06/11/24 loperamide 2 mg capsule 2 mg PO QDAY 10/28/23 10/28/23 pantoprazole 40 mg tablet,delayed 40 mg PO QDAY 10/28/23 06/11/24 release apixaban 5 mg tablet (Eliquis) 5 mg PO QDAY 06/11/24 06/11/24 Previous Rx's ?Medication ?Instructions ?Recorded famotidine 20 mg tablet 20 mg PO BID #20 tabs 11/01/23 ondansetron 4 mg disintegrating 4 mg PO Q8H PRN nausea and 02/22/24 tablet vomiting #30 tabs sucralfate 100 mg/mL oral 5 ml PO QID #420 mL 04/10/24 suspension (Carafate) acetaminophen 300 mg-codeine 30 mg 2 tab PO TID PRN pain #20 tabs 07/02/24 tablet cefdinir 300 mg capsule 300 mg PO BID #14 caps 07/02/24 lidocaine HCl 2 % mucosal solution 5 ml PO TIDPC PRN dyspepsia #300 mL 07/02/24 (Lidocaine Viscous) sucralfate 100 mg/mL oral 10 ml PO TID #500 mL 07/02/24 suspension (Carafate) polyethylene glycol 3350 17 17 g PO QDAY 3 days #119 grams 08/18/24 gram/dose oral powder (Miralax) Allergies Allergy/AdvReac Type Severity Reaction Status Date / Time amoxicillin [From Augmentin] Allergy Severe Hives Verified 08/12/24 17:27 aspirin Allergy Severe Abdominal Verified 08/12/24 17:27 Pain ciprofloxacin [From Cipro] Allergy Severe Gastrointestinal Verified 08/12/24 17:27 Upset clavulanic acid Allergy Severe Hives Verified 08/12/24 17:27 [From Augmentin] codeine Allergy Severe Nausea Verified 08/12/24 17:27 fluconazole Allergy Severe Rash Verified 08/12/24 17:27 gabapentin Allergy Severe Abdominal Verified 08/12/24 17:27 Pain ketorolac [From Toradol] Allergy Severe Abdominal Verified 08/12/24 17:27 Pain nalbuphine Allergy Severe Abdominal Verified 08/12/24 17:27 Pain Sulfa (Sulfonamide Allergy Severe Hives Verified 08/12/24 17:27 Antibiotics) tizanidine Allergy Severe Rash Verified 08/12/24 17:27 tramadol Allergy Severe Rash Verified 08/12/24 17:27 Review of Systems Review of Systems Systems Reviewed: All systems reviewed, normal except as documented Constitutional Constitutional: Reports system reviewed and no additional complaints, except as documented, Denies fever(s) and Denies headache(s) Eyes Eyes: Reports system reviewed and no additional complaints, except as documented and Denies blurry vision ENT Ears, Nose, Mouth, and Throat: Reports system reviewed and no additional compla ints, except as documented, Denies headache(s), Denies nasal congestion and Denies nasal discharge Cardiovascular Cardiovascular: Reports system reviewed and no additional complaints, except as documented, Denies chest pain and Denies dyspnea Respiratory Respiratory: Reports system reviewed and no additional complaints, except as documented, Denies chest congestion, Denies cough and Denies dyspnea Gastrointestinal Gastrointestinal: Reports system reviewed and no additional complaints, except as documented and Denies abdominal pain Integumentary/Breasts Skin/Breast: Reports system reviewed and no additional complaints, except as documented and Denies rash Neurologic Neurologic: Reports system reviewed and no additional complaints, except as documented, Reports as per HPI and Denies headache(s) Past Medical History Past Medical History NEUROLOGIC: Negative Neurological Disorders ED Exam General Limitations: Present no limitations General appearance: Present alert and in no apparent distress Head Head exam: Present atraumatic, normocephalic and normal inspection Eye Eye exam: Present normal appearance, PERRL and EOMI; Absent conjunctival injection ENT ENT exam: Present normal exam, normal oropharynx and mucous membranes moist Neck Neck exam: Present normal inspection, full ROM and trachea midline Chest Chest inspection: Present normal inspection and symmetric chest wall rise Respiratory Respiratory exam: Present normal lung sounds bilaterally; Absent respiratory distress Cardiovascular Cardiovascular exam: Present regular rate, normal rhythm and normal heart sounds Abdominal Exam Abdominal exam: Present soft and normal bowel sounds; Absent distention, tenderness, guarding, rebound, rigidity, Spencer's sign or tenderness at McBurney's Point Abdominal tenderness: Absent RUQ or RLQ Extremities Exam Extremities exam: Present normal inspection and full ROM Back Exam Back exam: Present normal inspection and full ROM Neurological Exam Neurological exam: Present alert, oriented X3 and CN II-XII intact Psychiatric Psychiatric exam: Present normal affect and normal mood Skin Skin exam: Present warm, dry, intact and normal color Course Quality Measures none Orders Category Date Time Status CT abdomen pelvis wo con Stat Exams 08/18/24 06:55 Completed CBC Stat Lab 08/18/24 07:20 Completed Comprehensive Metabolic Panel Stat Lab 08/18/24 07:20 Completed Lipase Stat Lab 08/18/24 07:20 Completed Troponin I Stat Lab 08/18/24 07:20 Completed UA, C/S IF [Urinalysis, C/S if Indicated] Stat Lab 08/18/24 06:50 Completed Famotidine [Pepcid] Med 08/18/24 06:55 Discontinued 40 mg PO X1 ONE HYDROcodone*/APAP 5/325 [Sagola 5/325] Med 08/18/24 06:57 Discontinued 1 tab PO X1 ONE Vital Signs Vital signs: Vital Signs Temperature 97.7 F 08/18/24 06:48 Pulse Rate 79 08/18/24 06:48 Respiratory Rate 18 08/18/24 06:48 Blood Pressure 155/85 H 08/18/24 06:48 Pulse Oximetry (%) 97 08/18/24 06:48 Oxygen Delivery Method Room Air 08/18/24 06:48 O2 saturation 97% room air within normal limits Abdominal Pain MDM MDM Narrative MDM Narrative:: 78-year-old female presents to the emergency department today with complaints of acute on chronic abdominal pain patient reports no fever nausea or vomiting On exam patient does not appear ill or toxic patient does not appear in acute distress patient has soft nontender abdomen Patient given Sagola here for pain Lab work as well as CT scan obtained CT scan consistent with moderate amount of stool throughout the colon patient does report she is passing gas Patient has no leukocytosis lab work unremarkable Patient discharged home in no distress to follow-up with primary care doctor in the next 24 to 48 hours and for any worsening symptoms to return to the ER immediately Patient data External records reviewed:: [facility] previous records Clinical information provided by:: patient Social determinants that could affect healthcare access:: none Patient has the following chronic illnesses:: See history How is presenting disease/condition affected by chronic disease/condition?: caused by Evaluation data The following diagnostics were reviewed and interpreted by me:: lab results and radiology exam(s) Lab and/or radiology exams considered but not ordered:: Labs and radiology obtained Interpretation Summary: Reviewed by me Medications / Prescriptions Medications or Prescriptions considered but not ordered:: Given Medication administrations:: Medication Administration History Discontinued Medications Hydrocodone Bitart/Acetaminophen (Hydrocodone/Apap 5/325 Tablet) 1 tab PO X1 ONE Stop: 08/18/24 06:58 Last Admin: 08/18/24 07:02 Dose: 1 tab Documented By: SHERLYN Famotidine (Famotidine 20 Mg Tablet) 40 mg PO X1 ONE Stop: 08/18/24 06:56 Last Admin: 08/18/24 07:02 Dose: 40 mg Documented By: SHERLYN Given Consultations Consultation(s) initiated? (list below): No Diagnosis Differential diagnosis abdominal pain: abdominal pain, constipation, gastroenteritis and pancreatitis Most likely diagnosis given after review of the tests above:: Abdominal pain Admission Indicated Admission indicated?: not indicated Admission Request Was there a request for admission?: No Disposition Plan Disposition Plan: Discharge Discharge Attestation Discharge Attestation: The patient and all family members were given an opportunity to ask questions and understood the discharge instructions. Discharge instructions specifically effects, indications for sooner follow up or return to the emergency department, and the expected course of current diagnosis. Patient condition: Stable Discharge Plan Plan Patient Disposition: HOME (Self Care) Disposition Comment: Stable Prescriptions/Referrals Prescriptions/Med Rec: New polyethylene glycol 3350 [Miralax] 17 gram/dose powder 17 g PO QDAY 3 Days Qty: 119 0RF No Action metformin 500 mg Tablet 500 mg PO DAILY acetaminophen 500 mg Tablet 500 mg PO PRN MDD 4 PRN (Reason: Pain) levothyroxine 50 mcg Tablet 50 mcg PO DAILY cholecalciferol (vitamin D3) [Vitamin D3] 25 mcg (1,000 unit) Tablet 25 mcg PO 1XD Align 4 mg Capsule 4 mg PO DAILY duloxetine 60 mg capsule,delayed release(DR/EC) 60 mg PO QDAY Rx Instructions: Takes 80mg in the afternoon loperamide 2 mg capsule 2 mg PO QDAY alprazolam 0.5 mg tablet 0.5 mg PO BID PRN (Reason: Anxiety) Hold Instructions: Resume on 10/29/23. Patient Comments: TAKE 1 TABLET BY MOUTH THREE TIMES DAILY NEEDED FOR ANXIETY pantoprazole 40 mg tablet,delayed release (DR/EC) 40 mg PO QDAY Patient Comments: TAKE 1 TABLET BY MOUTH DAILY benazepril 20 mg tablet 20 mg PO QDAY famotidine 20 mg tablet 20 mg PO BID Qty: 20 0RF ondansetron 4 mg tablet,disintegrating 4 mg PO Q8H PRN (Reason: nausea and vomiting) Qty: 30 0RF lidocaine HCl [Lidocaine Viscous] 2 % solution 5 ml PO TIDPC MDD 15 mL PRN (Reason: dyspepsia) Qty: 300 0RF sucralfate [Carafate] 100 mg/mL suspension 10 ml PO TID Qty: 500 0RF Rx Instructions: swish in mouth and swallow; use after food/drink acetaminophen-codeine 300-30 mg tablet 2 tab PO TID MDD 6 PRN (Reason: pain) Qty: 20 0RF cefdinir 300 mg capsule 300 mg PO BID Qty: 14 0RF sucralfate [Carafate] 100 mg/mL suspension 5 ml PO QID Qty: 420 0RF Rx Instructions: swish in mouth and swallow; use after food/drink Eliquis 5 mg Tablet 5 mg PO QDAY Referrals: Tyrone Langford MD [Primary Care Provider] - In 1 week Problem List Clinical Impression: Abdominal pain, Constipation Patient/Caregiver Discharge Instructions Education Materials: Abdominal Pain Additional Instructions: Please follow-up with your GI specialist as discussed for worsening symptoms or concerns return to the ER immediately Take the MiraLAX for 3 days 1 time a day once you have a bowel movement stop medication Print Language: Turkmen Stand Alone Forms: [employer] Award Info., Patient Portal Info Letter PA/[employer] Supervising Physician PA/[employer] Supervising Physician: Dr. Hernadez
== END 2024-08-18 09:35 | disposition home or self-care (01) ==
PROVIDERS: Nurse Practitioner Primary Care; Emergency Provider Emergency Medicine; PCP Family Medicine
DX: K59.00 Constipation, unspecified (principal); R10.84 Generalized abdominal pain
CPT/HCPCS: 36415; 74176; 80053; 81001; 83690; 84484; 85025; 99284; A9270

== ENCOUNTER 2024-08-27 13:36 | Emergency (ER) | payer MEDICARE, BC, SELFPAY ==
[2024-08-27 13:37] VITALS: BMI 27.4
[2024-08-27 13:52] VITALS: BP 158/87; PULSE 93; RESP 18; TEMP 36.7; O2SAT 95
[2024-08-27 14:20] LABS: Collection Type, Urine Clean Catch
[2024-08-27 14:28] LABS: Bilirubin,Urine Negative (Negative); Blood,Urine Negative (Negative); Clarity,Urine Clear (Clear/Hazy); Culture Indicated,Urine Not Indicated; Glucose, Urine Negative (Negative); Ketones,Urine Negative (Negative); Leukocyte Esterase,Urine Negative (Negative); Nitrite,Urine Negative (Negative); PH,Urine 6.5 (5.0-7.0); Protein,Urine Negative (Neg - Trace); RBC,Urine 1 /hpf (0-3); Specific Gravity,Urine 1.007 (1.001-1.035); Squamous Epithelial Cell,Urine 2 /hpf (0-5); Urobilinogen,Urine Negative mg/dL (0.0-1.0); WBC,Urine 1 /hpf (0-5)
[2024-08-27 14:31] LABS: Color,Urine Lt-Yellow (Lt Yel-Yel)
--- NOTE | 2024-08-27 14:43 | EDNOTE_ITS ---
<Statement entered by Jenniffer Santana MD - 09/03/24 18:14> As co-signing physician, I was present and available for consult prn. I concur with the plan and care as documented by the midlevel provider. ED Female Urogenital RME/HPI General Chief complaint: Urogenital-Female Stated complaint: I THINK I HAVE A BLADDER INFECTION Time Seen by Provider: 08/27/24 13:49 Arrival date/time: 08/27/24 13:36 78-year-old female presents to the emergency department complains of dysuria patient concerned about a possible bladder infection Limitations: no limitations Related Data Home Medications ?Medication ?Instructions ?Recorded ?Confirmed Bifidobacterium infantis 4 mg 4 mg PO DAILY 06/27/23 06/11/24 capsule (Align) acetaminophen 500 mg tablet 500 mg PO PRN PRN Pain 06/27/23 10/28/23 cholecalciferol (vitamin D3) 25 25 mcg PO 1XD 06/27/23 10/28/23 mcg (1,000 unit) tablet (Vitamin D3) levothyroxine 50 mcg tablet 50 mcg PO DAILY 06/27/23 06/11/24 metformin 500 mg tablet 500 mg PO DAILY 06/27/23 06/11/24 duloxetine 60 mg capsule,delayed 60 mg PO QDAY 08/23/23 06/11/24 release alprazolam 0.5 mg tablet 0.5 mg PO BID PRN Anxiety 10/28/23 06/11/24 benazepril 20 mg tablet 20 mg PO QDAY 10/28/23 06/11/24 loperamide 2 mg capsule 2 mg PO QDAY 10/28/23 10/28/23 pantoprazole 40 mg tablet,delayed 40 mg PO QDAY 10/28/23 06/11/24 release apixaban 5 mg tablet (Eliquis) 5 mg PO QDAY 06/11/24 06/11/24 Previous Rx's ?Medication ?Instructions ?Recorded famotidine 20 mg tablet 20 mg PO BID #20 tabs 11/01/23 ondansetron 4 mg disintegrating 4 mg PO Q8H PRN nausea and 02/22/24 tablet vomiting #30 tabs sucralfate 100 mg/mL oral 5 ml PO QID #420 mL 04/10/24 suspension (Carafate) acetaminophen 300 mg-codeine 30 mg 2 tab PO TID PRN pain #20 tabs 07/02/24 tablet cefdinir 300 mg capsule 300 mg PO BID #14 caps 07/02/24 lidocaine HCl 2 % mucosal solution 5 ml PO TIDPC PRN dyspepsia #300 mL 07/02/24 (Lidocaine Viscous) sucralfate 100 mg/mL oral 10 ml PO TID #500 mL 07/02/24 suspension (Carafate) Allergies Allergy/AdvReac Type Severity Reaction Status Date / Time amoxicillin [From Augmentin] Allergy Severe Hives Verified 08/27/24 13:37 aspirin Allergy Severe Abdominal Verified 08/27/24 13:37 Pain ciprofloxacin [From Cipro] Allergy Severe Gastrointestinal Verified 08/27/24 13:37 Upset clavulanic acid Allergy Severe Hives Verified 08/27/24 13:37 [From Augmentin] codeine Allergy Severe Nausea Verified 08/27/24 13:37 fluconazole Allergy Severe Rash Verified 08/27/24 13:37 gabapentin Allergy Severe Abdominal Verified 08/27/24 13:37 Pain ketorolac [From Toradol] Allergy Severe Abdominal Verified 08/27/24 13:37 Pain nalbuphine Allergy Severe Abdominal Verified 08/27/24 13:37 Pain Sulfa (Sulfonamide Allergy Severe Hives Verified 08/27/24 13:37 Antibiotics) tizanidine Allergy Severe Rash Verified 08/27/24 13:37 tramadol Allergy Severe Rash Verified 08/27/24 13:37 Review of Systems Review of Systems Systems Reviewed: All systems reviewed, normal except as documented Constitutional Constitutional: Reports system reviewed and no additional complaints, except as documented, Denies fever(s) and Denies headache(s) Eyes Eyes: Reports system reviewed and no additional complaints, except as documented and Denies blurry vision ENT Ears, Nose, Mouth, and Throat: Reports system reviewed and no additional complaints, except as documented, Denies headache(s), Denies nasal congestion and Denies nasal discharge Cardiovascular Cardiovascular: Reports system reviewed and no additional complaints, except as documented, Denies chest pain and Denies dyspnea Respiratory Respiratory: Reports system reviewed and no additional complaints, except as documented, Denies chest congestion, Denies cough and Denies dyspnea Gastrointestinal Gastrointestinal: Reports system reviewed and no additional complaints, except as documented and Denies abdominal pain Genitourinary Genitourinary: Reports system reviewed and no additional complaints, except as documented, Denies abnormal vaginal bleeding and Reports other (dysuria ) Integumentary/Breasts Skin/Breast: Reports system reviewed and no additional complaints, except as documented and Denies rash Neurologic Neurologic: Reports system reviewed and no additional complaints, except as documented, Reports as per HPI and Denies headache(s) Past Medical History Past Medical History NEUROLOGIC: Negative Neurological Disorders or Seizures CARDIAC: Positive Cardiac Disorders (A FIB), Cardiac Arrhythmia, Atrial Fibrillation, Hypercholesterolemia and Hypertension; Negative Congestive Heart Failure RESPIRATORY: Positive Pneumonia and Sleep Apnea; Negative Chronic Obstructive Pulmonary Disease (COPD) or Asthma GASTROINTESTINAL: Positive Gastrointestinal Bleed, Ulcerative Colitis, Diverticulitis, Diverticulosis, Irritable Bowel, Obstructive Bowel, Hemorrhoids and Obesity GENITOURINARY: Negative Renal Disease ENT: Positive Cataracts and Ear Infection ENDOCRINE: Positive Diabetes Mellitus Type 2 and Hypothyroidism; Negative Diabetes Mellitus Type 1 HEMATOLOGIC: Negative Sickle Cell Disease PSYCHO/SOCIAL: Positive Anxiety OTHER HISTORY: Positive Falls, Blood Transfusions, Anesthesia Reactions, Chicken Pox, Mumps and Clostridium Difficile; Negative Cancer Family History FAMILY HISTORY: Positive Family Cardiac Disorders; Negative Family Respiratory Disorders Surgical History SURGICAL: Positive Cardiac Surgery, Thyroidectomy, Joint Replacement, Hysterectomy and Section Social History SMOKING STATUS: Never smoker SUBSTANCE USE: does not use ED Exam General Limitations: Present no limitations General appearance: Present alert and in no apparent distress Head Head exam: Present atraumatic, normocephalic and normal inspection Eye Eye exam: Present normal appearance, PERRL and EOMI; Absent conjunctival injection ENT ENT exam: Present normal exam, normal oropharynx and mucous membranes moist Neck Neck exam: Present normal inspection, full ROM and trachea midline Chest Chest inspection: Present normal inspection and symmetric chest wall rise Respiratory Respiratory exam: Present normal lung sounds bilaterally; Absent respiratory distress, wheezes, stridor or accessory muscle use Cardiovascular Cardiovascular exam: Present regular rate, normal rhythm and normal heart sounds Abdominal Exam Abdominal exam: Present soft and normal bowel sounds; Absent distention, tenderness, guarding, rebound or rigidity Extremities Exam Extremities exam: Present normal inspection and full ROM Back Exam Back exam: Present normal inspection and full ROM Neurological Exam Neurological exam: Present alert, oriented X3, CN II-XII intact, normal gait and reflexes normal; Absent motor sensory deficit Psychiatric Psychiatric exam: Present normal affect and normal mood Skin Skin exam: Present warm, dry, intact and normal color; Absent rash Course Quality Measures none Orders Category Date Time Status UA, C/S IF [Urinalysis, C/S if Indicated] Stat Lab 08/27/24 14:11 Completed Vital Signs Vital signs: Vital Signs Temperature 98.1 F 08/27/24 13:52 Pulse Rate 93 08/27/24 13:52 Respiratory Rate 18 08/27/24 13:52 Blood Pressure 158/87 H 08/27/24 13:52 Pulse Oximetry (%) 95 08/27/24 13:52 Oxygen Delivery Method Room Air 08/27/24 13:52 o2 sat 95% r/a wnl Urogenital - Female MDM Narrative MDM Narrative:: 78-year-old female presents to the emergency department complains of dysuria patient concerned about a possible bladder infection On exam patient well-appearing patient not appear ill or toxic and in no acute distress Patient urinalysis obtained no acute emergent findings noted no UTI noted Patient is very well-appearing no abdominal pain no vomiting no flank pain Patient discharged home in no distress to follow-up with primary care doctor in the next 24 to 48 hours and for any worsening symptoms to return to the ER immediately Patient data External records reviewed:: [facility] previous records Clinical information provided by:: patient Social determinants that could affect healthcare access:: none Patient has the following chronic illnesses:: none How is presenting disease/condition affected by chronic disease/condition?: no chronic disease Evaluation data The following diagnostics were reviewed and interpreted by me:: lab results Lab and/or radiology exams considered but not ordered:: labs obtained Interpretation Summary: reviewed by me Medications / Prescriptions Medications or Prescriptions considered but not ordered:: no meds Medication administrations:: no meds Consultations Consultation(s) initiated? (list below): No Diagnosis Urogenital Female Differential Diagnosis: urinary tract infection and cystitis Most likely diagnosis given after review of the tests above:: dysuria Admission Indicated Admission indicated?: not indicated Admission Request Was there a request for admission?: No Disposition Plan Disposition Plan: Discharge Discharge Attestation Discharge Attestation: The patient and all family members were given an opportunity to ask questions and understood the discharge instructions. Discharge instructions specifically effects, indications for sooner follow up or return to the emergency department, and the expected course of current diagnosis. Patient condition: Stable Discharge Plan Plan Patient Disposition: HOME (Self Care) Disposition Comment: Stable Prescriptions/Referrals Prescriptions/Med Rec: No Action metformin 500 mg Tablet 500 mg PO DAILY acetaminophen 500 mg Tablet 500 mg PO PRN MDD 4 PRN (Reason: Pain) levothyroxine 50 mcg Tablet 50 mcg PO DAILY cholecalciferol (vitamin D3) [Vitamin D3] 25 mcg (1,000 unit) Tablet 25 mcg PO 1XD Align 4 mg Capsule 4 mg PO DAILY duloxetine 60 mg capsule,delayed release(DR/EC) 60 mg PO QDAY Rx Instructions: Takes 80mg in the afternoon loperamide 2 mg capsule 2 mg PO QDAY alprazolam 0.5 mg tablet 0.5 mg PO BID PRN (Reason: Anxiety) Hold Instructions: Resume on 10/29/23. Patient Comments: TAKE 1 TABLET BY MOUTH THREE TIMES DAILY NEEDED FOR ANXIETY pantoprazole 40 mg tablet,delayed release (DR/EC) 40 mg PO QDAY Patient Comments: TAKE 1 TABLET BY MOUTH DAILY benazepril 20 mg tablet 20 mg PO QDAY famotidine 20 mg tablet 20 mg PO BID Qty: 20 0RF ondansetron 4 mg tablet,disintegrating 4 mg PO Q8H PRN (Reason: nausea and vomiting) Qty: 30 0RF lidocaine HCl [Lidocaine Viscous] 2 % solution 5 ml PO TIDPC MDD 15 mL PRN (Reason: dyspepsia) Qty: 300 0RF sucralfate [Carafate] 100 mg/mL suspension 10 ml PO TID Qty: 500 0RF Rx Instructions: swish in mouth and swallow; use after food/drink acetaminophen-codeine 300-30 mg tablet 2 tab PO TID MDD 6 PRN (Reason: pain) Qty: 20 0RF cefdinir 300 mg capsule 300 mg PO BID Qty: 14 0RF sucralfate [Carafate] 100 mg/mL suspension 5 ml PO QID Qty: 420 0RF Rx Instructions: swish in mouth and swallow; use after food/drink Eliquis 5 mg Tablet 5 mg PO QDAY Referrals: Tyrone Langford MD [Primary Care Provider] - In 1 week Problem List Clinical Impression: Dysuria Patient/Caregiver Discharge Instructions Education Materials: Dysuria Additional Instructions: Please follow up with your primary care doctor in the next 24-48hrs for any worsening symptoms return here immediately Print Language: Estonian Stand Alone Forms: [employer] Award Info., Patient Portal Info Letter PA/TONSORIAL ARTIST Supervising Physician PA/TONSORIAL ARTIST Supervising Physician: dr santana
== END 2024-08-27 16:37 | disposition home or self-care (01) ==
PROVIDERS: Nurse Practitioner Primary Care; Emergency Provider Emergency Medicine; PCP Family Medicine
DX: R30.0 Dysuria (principal)
CPT/HCPCS: 81001; 99283

== ENCOUNTER 2024-08-27 22:39 | Emergency (ER) | payer MEDICARE, BC, SELFPAY ==
[2024-08-27 22:46] VITALS: PULSE 88; O2SAT 98; BMI 31.2
[2024-08-27 23:15] VITALS: BP 152/84; PULSE 111; RESP 20; TEMP 36.8; O2SAT 95
--- NOTE | 2024-08-27 23:17 | XR_ITS ---
Examination: PA lateral chest 2 views Technique: Upright PA lateral chest 2 views Exam date and time: August 27, 2024 1125 hrs. Comparison July 10, 2024 Indications: Chest pain radiating to left arm today. Findings: Mild hyperexpansion Mild blunting of bilateral costophrenic angle Mild accentuation basilar bronchovascular markings No lobar pneumonia No pulmonary edema Prominent osteopenia Impression: Mild basilar bronchitis pattern
--- NOTE | 2024-08-27 23:17 | PD.EDRME ---
Rapid Medical Screening Exam RME Arrival date/time: 08/27/24 22:39 78 yo f present to ED for c/o chest/arm pain tonight I have greeted and performed a focused initial assessment of this patient. A comprehensive ED assessment and evaluation of the patient, analysis of all test results, and completion of the medical decision making process will be conducted by additional ED providers. Chief Complaint: Extremity Problem,Nontraumatic Vital signs: Vital Signs Temperature 98.2 F 08/27/24 23:15 Pulse Rate 111 H 08/27/24 23:15 Respiratory Rate 20 08/27/24 23:15 Blood Pressure 152/84 H 08/27/24 23:15 Pulse Oximetry (%) 95 08/27/24 23:15 Oxygen Delivery Method Room Air 08/27/24 23:15
[2024-08-27 23:46] LABS: Basophils # (Auto) 0.1 Thou/mm3 (0.0-0.2); Basophils % (Auto) 1 % (0-2.5); Eosinophils # (Auto) 0.1 Thou/mm3 (0.0-0.5); Eosinophils % (Auto) 1 % (0-10); Hematocrit 31.6 % (36.0-46.0); Hemoglobin 9.7 g/dL (12.0-16.0); Immature Granulocytes % (Auto) 0 % (0-0); Immature Granulocytes Auto 0.04 Thou/mm3 (0.00-0.00); Lymphocytes # (Auto) 3.1 Thou/mm3 (1.0-4.8); Lymphocytes % (Auto) 29 % (10-50); Mean Corpuscular HGB Conc 30.7 g/dl (31.0-37.0); Mean Corpuscular Hemoglobin 23.7 pg (25.0-35.0); Mean Corpuscular Volume 77 fL (80-100); Monocytes # (Auto) 1.1 Thou/mm3 (0.0-0.8); Monocytes % (Auto) 10 % (0-12); Neutrophils # (Auto) 6.3 Thou/mm3 (1.8-7.7); Neutrophils % (Auto) 59 % (37-80); Nucleated Red Blood Cell % 0 /100 WBC (0); Platelet Count 488 Thou/mm3 (140-440); RDW Standard Deviation 49.2 fL (36.4-46.3); Red Blood Count 4.09 Miln/mm3 (4.00-5.20); White Blood Count 10.6 Thou/mm3 (3.6-11.0)
[2024-08-28] LABS: Alanine Aminotransferase 18 U/L (10-49); Albumin/Globulin Ratio 1.5 (1.2-2.2); Alkaline Phosphatase 86 U/L (46-116); Anion Gap 7 (7-16); Aspartate Amino Transferase 13 U/L (0-34); BUN/Creatinine Ratio 13 Ratio (12-20); Bilirubin,Total 0.2 mg/dL (0.3-1.2); Blood Urea Nitrogen 16 mg/dL (9-23); Carbon Dioxide 28.8 mMol/L (20.0-31.0); Chloride 100 mMol/L (98-107); Creatinine (Component) 1.2 mg/dL (0.6-1.3); Estimated Creatinine Clearance 34.9 mL/min (>60); Globulin 3.3 gm/dL (2.3-3.5); Glucose 138 mg/dL (74-106); Magnesium 1.9 mg/dL (1.6-2.6); Osmolality,Calculated 275 (275-295); Potassium 4.2 mMol/L (3.4-5.1); Sodium 136 mMol/L (136-145); Total Protein 8.3 gm/dL (5.7-8.2); Troponin I < 0.020 ng/mL (0.0-0.045); eGFR 47 See Note
[2024-08-28 00:59] VITALS: BP 181/72; PULSE 72; RESP 18; O2SAT 97
--- NOTE | 2024-08-28 01:49 | PC.NURSE ---
PT INFORMED ME THAT SHE IS GOING HOME .
== END 2024-08-28 01:50 | disposition left against medical advice (07) ==
PROVIDERS: Physician Assistant; Emergency Provider Emergency Medicine; PCP Family Medicine
DX: R07.9 Chest pain, unspecified (principal); M79.603 Pain in arm, unspecified; Z53.29 Procedure and treatment not carried out because of patient's decision for other reasons
CPT/HCPCS: 36415; 71046; 80053; 83735; 84484; 85025; 99281

== ENCOUNTER 2024-09-11 00:38 | Emergency (ER) | payer MEDICARE, BC, SELFPAY ==
[2024-09-11 00:39] VITALS: BMI 31.2
== END 2024-09-11 01:23 | disposition left against medical advice (07) ==
PROVIDERS: Emergency Provider Emergency Medicine
DX: Z53.21 Procedure and treatment not carried out due to patient leaving prior to being seen by health care provider (principal)

== ENCOUNTER 2024-09-11 14:04 | Emergency (ER) | payer MEDICARE, BC, SELFPAY ==
[2024-09-11 14:08] VITALS: PULSE 90; O2SAT 97; BMI 31.2
[2024-09-11 14:19] VITALS: BP 155/85; PULSE 83; RESP 20; TEMP 36.8; O2SAT 96
--- NOTE | 2024-09-11 14:39 | PD.EDABDPN ---
ED Abdominal Pain RME/HPI General Chief Complaint: Abdominal Pain Stated complaint: DIARRHEA Time seen by provider: 09/11/24 14:38 Arrival date/time: 09/11/24 14:04 78-year-old female well-known to me presents to the emergency department today stating that she had an episode of diarrhea today after taking MiraLAX, fiber, enema last night. Patient has chronic abdominal pain patient reports that she felt like she had pain from her ulcer and therefore she gave herself all these medications Limitations: no limitations Related Data Home Medications ?Medication ?Instructions ?Recorded ?Confirmed Bifidobacterium infantis 4 mg 4 mg PO DAILY 06/27/23 06/11/24 capsule (Align) acetaminophen 500 mg tablet 500 mg PO PRN PRN Pain 06/27/23 10/28/23 cholecalciferol (vitamin D3) 25 25 mcg PO 1XD 06/27/23 10/28/23 mcg (1,000 unit) tablet (Vitamin D3) levothyroxine 50 mcg tablet 50 mcg PO DAILY 06/27/23 06/11/24 metformin 500 mg tablet 500 mg PO DAILY 06/27/23 06/11/24 duloxetine 60 mg capsule,delayed 60 mg PO QDAY 08/23/23 06/11/24 release alprazolam 0.5 mg tablet 0.5 mg PO BID PRN Anxiety 10/28/23 06/11/24 benazepril 20 mg tablet 20 mg PO QDAY 10/28/23 06/11/24 loperamide 2 mg capsule 2 mg PO QDAY 10/28/23 10/28/23 pantoprazole 40 mg tablet,delayed 40 mg PO QDAY 10/28/23 06/11/24 release apixaban 5 mg tablet (Eliquis) 5 mg PO QDAY 06/11/24 06/11/24 Previous Rx's ?Medication ?Instructions ?Recorded famotidine 20 mg tablet 20 mg PO BID #20 tabs 11/01/23 ondansetron 4 mg disintegrating 4 mg PO Q8H PRN nausea and 02/22/24 tablet vomiting #30 tabs sucralfate 100 mg/mL oral 5 ml PO QID #420 mL 04/10/24 suspension (Carafate) acetaminophen 300 mg-codeine 30 mg 2 tab PO TID PRN pain #20 tabs 11/23/24 tablet cefdinir 300 mg capsule 300 mg PO BID #14 caps 07/02/24 lidocaine HCl 2 % mucosal solution 5 ml PO TIDPC PRN dyspepsia #300 mL 07/02/24 (Lidocaine Viscous) sucralfate 100 mg/mL oral 10 ml PO TID #500 mL 07/02/24 suspension (Carafate) Allergies Allergy/AdvReac Type Severity Reaction Status Date / Time amoxicillin (From Augmentin) Allergy Severe Hives Verified 09/11/24 14:07 aspirin Allergy Severe Abdominal Verified 09/11/24 14:07 Pain ciprofloxacin (From Cipro) Allergy Severe Gastrointestinal Verified 09/11/24 14:07 Upset clavulanic acid (From Allergy Severe Hives Verified 09/11/24 14:07 Augmentin) codeine Allergy Severe Nausea Verified 09/11/24 14:07 fluconazole Allergy Severe Rash Verified 09/11/24 14:07 gabapentin Allergy Severe Abdominal Verified 09/11/24 14:07 Pain ketorolac (From Toradol) Allergy Severe Abdominal Verified 09/11/24 14:07 Pain nalbuphine Allergy Severe Abdominal Verified 09/11/24 14:07 Pain Sulfa (Sulfonamide Allergy Severe Hives Verified 09/11/24 14:07 Antibiotics) tizanidine Allergy Severe Rash Verified 09/11/24 14:07 tramadol Allergy Severe Rash Verified 09/11/24 14:07 Review of Systems Review of Systems Systems Reviewed: All systems reviewed, normal except as documented Constitutional Constitutional: Reports system reviewed and no additional complaints, except as documented, Denies fever(s) and Denies headache(s) Eyes Eyes: Reports system reviewed and no additional complaints, except as documented and Denies blurry vision ENT Ears, Nose, Mouth, and Throat: Reports system reviewed and no additional complaints, except as documented, Denies headache(s), Denies nasal congestion and Denies nasal discharge Cardiovascular Cardiovascular: Reports system reviewed and no additional complaints, except as documented, Denies chest pain and Denies dyspnea Respiratory Respiratory: Reports system reviewed and no additional complaints, except as documented, Denies chest congestion, Denies cough and Denies dyspnea Gastrointestinal Gastrointestinal: Reports system reviewed and no additional complaints, except as documented, Reports abdominal pain and Reports loose stools Integumentary/Breasts Skin/Breast: Reports system reviewed and no additional complaints, except as documented and Denies rash Neurologic Neurologic: Reports system reviewed and no additional complaints, except as documented, Reports as per HPI and Denies headache(s) Past Medical History Past Medical History NEUROLOGIC: Negative Neurological Disorders or Seizures CARDIAC: Positive Cardiac Disorders (A FIB), Cardiac Arrhythmia, Atrial Fibrillation, Hypercholesterolemia and Hypertension; Negative Congestive Heart Failure RESPIRATORY: Positive Pneumonia and Sleep Apnea; Negative Chronic Obstructive Pulmonary Disease (COPD) or Asthma GASTROINTESTINAL: Positive Gastrointestinal Bleed, Ulcerative Colitis, Diverticulitis, Diverticulosis, Irritable Bowel, Obstructive Bowel, Hemorrhoids and Obesity GENITOURINARY: Negative Renal Disease ENT: Positive Cataracts and Ear Infection ENDOCRINE: Positive Diabetes Mellitus Type 2 and Hypothyroidism; Negative Diabetes Mellitus Type 1 HEMATOLOGIC: Negative Sickle Cell Disease PSYCHO/SOCIAL: Positive Anxiety OTHER HISTORY: Positive Falls, Blood Transfusions, Anesthesia Reactions, Chicken Pox, Mumps and Clostridium Difficile; Negative Cancer Family History FAMILY HISTORY: Positive Family Cardiac Disorders; Negative Family Respiratory Disorders Surgical History SURGICAL: Positive Cardiac Surgery, Thyroidectomy, Joint Replacement, Hysterectomy and Section Social History SMOKING STATUS: Never smoker SUBSTANCE USE: does not use ED Exam General Limitations: Present no limitations General appearance: Present alert and in no apparent distress Head Head exam: Present atraumatic, normocephalic and normal inspection Eye Eye exam: Present normal appearance, PERRL and EOMI; Absent conjunctival injection ENT ENT exam: Present normal exam, normal oropharynx and mucous membranes moist Neck Neck exam: Present normal inspection, full ROM and trachea midline Chest Chest inspection: Present normal inspection and symmetric chest wall rise Respiratory Respiratory exam: Present normal lung sounds bilaterally; Absent respiratory distress Cardiovascular Cardiovascular exam: Present regular rate, normal rhythm and normal heart sounds Abdominal Exam Abdominal exam: Present soft and normal bowel sounds; Absent distention, tenderness, guarding, rebound or rigidity Abdominal tenderness: Absent RUQ, RLQ, LUQ, LLQ or epigastrium Extremities Exam Extremities exam: Present normal inspection and full ROM Back Exam Back exam: Present normal inspection and full ROM Neurological Exam Neurological exam: Present alert, oriented X3 and CN II-XII intact Psychiatric Psychiatric exam: Present normal affect and normal mood Skin Skin exam: Present warm, dry, intact and normal color Course Quality Measures none Orders Category Date Time Status Loperamide [Imodium] Med 09/11/24 14:39 Discontinued 4 mg PO X1 ONE Vital Signs Vital signs: Vital Signs Temperature 98.2 F 09/11/24 14:19 Pulse Rate 83 09/11/24 14:19 Respiratory Rate 20 09/11/24 14:19 Blood Pressure 155/85 H 09/11/24 14:19 Pulse Oximetry (%) 96 09/11/24 14:19 Oxygen Delivery Method Room Air 09/11/24 14:19 O2 saturation 96% room air within normal limits Abdominal Pain MDM MDM Narrative MDM Narrative:: 78-year-old female well-known to me presents to the emergency department today stating that she had an episode of diarrhea today after taking MiraLAX, fiber, enema last night. Patient has chronic abdominal pain patient reports that she felt like she had pain from her ulcer and therefore she gave herself all these medications Patient denies pain at this time patient reports there is no blood in her stool Patient discharged home in no distress to follow-up with primary care doctor in the next 24 to 48 hours and for any worsening symptoms to return to the ER immediately Patient data External records reviewed:: [facility] previous records Clinical information provided by:: patient Social determinants that could affect healthcare access:: none (N/A) Patient has the following chronic illnesses:: See history How is presenting disease/condition affected by chronic disease/condition?: caused by Evaluation data The following diagnostics were reviewed and interpreted by me:: other (specify) (N/A) Lab and/or radiology exams considered but not ordered:: Consider not ordered Interpretation Summary: N/A Medications / Prescriptions Medications or Prescriptions considered but not ordered:: Given Medication administrations:: Medication Administration History Discontinued Medications Loperamide HCl (Loperamide 2 Mg Capsule) 4 mg PO X1 ONE Stop: 09/11/24 14:40 Last Admin: 09/11/24 14:44 Dose: 4 mg Documented By: EO Given Consultations Consultation(s) initiated? (list below): No Diagnosis Differential diagnosis abdominal pain: abdominal pain, acute appendicitis, calculus of kidney, constipation, pancreatitis and small bowel obstruction Most likely diagnosis given after review of the tests above:: Abdominal pain, constipation Admission Indicated Admission indicated?: not indicated Admission Request Was there a request for admission?: No Disposition Plan Disposition Plan: Discharge Discharge Attestation Discharge Attestation: The patient and all family members were given an opportunity to ask questions and understood the discharge instructions. Discharge instructions specifically effects, indications for sooner follow up or return to the emergency department, and the expected course of current diagnosis. Patient condition: Stable Discharge Plan Plan Patient Disposition: HOME (Self Care) Disposition Comment: Stable Prescriptions/Referrals Prescriptions/Med Rec: No Action metformin 500 mg Tablet 500 mg PO DAILY acetaminophen 500 mg Tablet 500 mg PO PRN MDD 4 PRN (Reason: Pain) levothyroxine 50 mcg Tablet 50 mcg PO DAILY cholecalciferol (vitamin D3) [Vitamin D3] 25 mcg (1,000 unit) Tablet 25 mcg PO 1XD Align 4 mg Capsule 4 mg PO DAILY duloxetine 60 mg capsule,delayed release(DR/EC) 60 mg PO QDAY Rx Instructions: Takes 80mg in the afternoon loperamide 2 mg capsule 2 mg PO QDAY alprazolam 0.5 mg tablet 0.5 mg PO BID PRN (Reason: Anxiety) Patient Comments: TAKE 1 TABLET BY MOUTH THREE TIMES DAILY NEEDED FOR ANXIETY pantoprazole 40 mg tablet,delayed release (DR/EC) 40 mg PO QDAY Patient Comments: TAKE 1 TABLET BY MOUTH DAILY benazepril 20 mg tablet 20 mg PO QDAY famotidine 20 mg tablet 20 mg PO BID Qty: 20 0RF ondansetron 4 mg tablet,disintegrating 4 mg PO Q8H PRN (Reason: nausea and vomiting) Qty: 30 0RF lidocaine HCl [Lidocaine Viscous] 2 % solution 5 ml PO TIDPC MDD 15 mL PRN (Reason: dyspepsia) Qty: 300 0RF sucralfate [Carafate] 100 mg/mL suspension 10 ml PO TID Qty: 500 0RF Rx Instructions: swish in mouth and swallow; use after food/drink acetaminophen-codeine 300-30 mg tablet 2 tab PO TID MDD 6 PRN (Reason: pain) Qty: 20 0RF cefdinir 300 mg capsule 300 mg PO BID Qty: 14 0RF sucralfate [Carafate] 100 mg/mL suspension 5 ml PO QID Qty: 420 0RF Rx Instructions: swish in mouth and swallow; use after food/drink Eliquis 5 mg Tablet 5 mg PO QDAY Problem List Clinical Impression: Diarrhea Patient/Caregiver Discharge Instructions Education Materials: Low-Fiber Diet Additional Instructions: Please follow up with your primary care doctor in the next 24-48hrs for any worsening symptoms return here immediately Print Language: Kazakh Stand Alone Forms: Saadia Award Info., Patient Portal Info Letter PA/HOME SERVICE CONSULTANT Supervising Physician PA/ZULEIKA Supervising Physician: Dr Holman
[2024-09-11] MEDS: LOPERAMIDE 2 MG CAPSULE 4 MG PO (14:44)
== END 2024-09-11 14:48 | disposition home or self-care (01) ==
LOC: SERX 14:57
PROVIDERS: Emergency Provider Emergency Medicine; PCP Family Medicine
DX: R19.7 Diarrhea, unspecified (principal)
CPT/HCPCS: 99282; A9270

== ENCOUNTER 2024-09-12 07:54 | Emergency (ER) | payer MEDICARE, BC, SELFPAY ==
[2024-09-12] VITALS (8 sets, daily range): BP systolic 143–190; BP diastolic 75–112; PULSE 79–97; RESP 13–20; TEMP 36.5–37; O2SAT 95–98; BMI 31.3; BMI 31.2
--- NOTE | 2024-09-12 08:13 | EKG_ITS ---
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
--- NOTE | 2024-09-12 08:44 | PD.EDRME ---
Rapid Medical Screening Exam RME Arrival date/time: 09/12/24 07:54 78-year-old female presents the emergency department today complains of lower abdominal pain which radiates to her chest Chief Complaint: Abdominal Pain Vital signs: Vital Signs Temperature 97.7 F 09/12/24 08:36 Pulse Rate 82 09/12/24 08:36 Respiratory Rate 20 09/12/24 08:36 Blood Pressure 147/75 H 09/12/24 08:36 Pulse Oximetry (%) 95 09/12/24 08:36 Oxygen Delivery Method Room Air 09/12/24 08:36
[2024-09-12] MEDS: LIDOCAINE VISCOUS 2% 15 ML UDC PO (09:28)
[2024-09-12] MEDS: MG HYD/AL HYD/SIME (Maalox Reg) SUSP 30 ML UDC PO (09:28)
[2024-09-12] MEDS: FAMOTIDINE 20 MG TABLET PO (09:28)
[2024-09-12 09:30] LABS: Basophils % (Auto) 1 % (0-2.5); Eosinophils % (Auto) 1 % (0-10); Hematocrit 33.7 % (36.0-46.0); Hemoglobin 10.4 g/dL (12.0-16.0); Immature Granulocytes % (Auto) 0 % (0-0); Immature Granulocytes Auto 0.03 Thou/mm3 (0.00-0.00); Lymphocytes # (Auto) 1.8 Thou/mm3 (1.0-4.8); Lymphocytes % (Auto) 22 % (10-50); Mean Corpuscular HGB Conc 30.9 g/dl (31.0-37.0); Mean Corpuscular Hemoglobin 23.8 pg (25.0-35.0); Mean Corpuscular Volume 77 fL (80-100); Monocytes # (Auto) 0.7 Thou/mm3 (0.0-0.8); Monocytes % (Auto) 8 % (0-12); Neutrophils # (Auto) 5.7 Thou/mm3 (1.8-7.7); Neutrophils % (Auto) 69 % (37-80); Nucleated Red Blood Cell % 0 /100 WBC (0); Platelet Count 402 Thou/mm3 (140-440); RDW Standard Deviation 49.6 fL (36.4-46.3); Red Blood Count 4.37 Miln/mm3 (4.00-5.20); White Blood Count 8.3 Thou/mm3 (3.6-11.0)
[2024-09-12 09:53] LABS: Alanine Aminotransferase 19 U/L (10-49); Albumin, Serum 4.9 gm/dL (3.4-4.8); Albumin/Globulin Ratio 1.4 (1.2-2.2); Alkaline Phosphatase 86 U/L (46-116); Anion Gap 10 (7-16); Aspartate Amino Transferase 16 U/L (0-34); BUN/Creatinine Ratio 13 Ratio (12-20); Bilirubin,Total 0.3 mg/dL (0.3-1.2); Blood Urea Nitrogen 12 mg/dL (9-23); Calcium 9.8 mg/dL (8.3-10.6); Calcium (Corrected) 9.8 mg/dL (8.5-10.1); Carbon Dioxide 27.8 mMol/L (20.0-31.0); Chloride 98 mMol/L (98-107); Creatinine (Component) 0.9 mg/dL (0.6-1.3); Estimated Creatinine Clearance 46.6 mL/min (>60); Globulin 3.5 gm/dL (2.3-3.5); Glucose 152 mg/dL (74-106); Lipase 29 U/L (12-53); Osmolality,Calculated 274 (275-295); Potassium 4.2 mMol/L (3.4-5.1); Sodium 136 mMol/L (136-145); Total Protein 8.4 gm/dL (5.7-8.2); Troponin I < 0.002 ng/mL (0.0-0.045); eGFR > 60 See Note
--- NOTE | 2024-09-12 11:03 | PD.EDABDPN ---
ED Abdominal Pain RME/HPI General Chief Complaint: Abdominal Pain Stated complaint: ABD. PAIN Time seen by provider: 09/12/24 10:59 Arrival date/time: 09/12/24 07:54 78 year old female present to emergency room with c/o of lower abdominal pain radiated to chest for 2 days. pt report shoulder pain history of rotary cuff injury. LOCATION: Lower abdominal tenderness. SEVERITY: Symptoms are described as being severe with limitations on activities of daily living QUALITY: Symptoms are described as being cramping CONTEXT: The patient is unable to identify any inciting events. DURATION/TIMING: The symptoms started approximately 2 day ago and have been waxing/waning but always present without ever completely resolving. ASSOCIATED SYMPTOMS: The patient is unable to identify any other associated symptoms. MODIFYING FACTORS: The patient is unable to identify any alleviating or aggravating symptoms. PERTINENT ROS: no fevers, no anorexia, no nausea or vomiting, no diarrhea, no ripping or tearing sensations, no syncope or presyncopal symptoms, denies trauma, denies genital pain REVIEW OF SYSTEMS: See History of Present Illness - with the exception of those mentioned in the history of present illness, all other systems reviewed and reported as negative GENERAL: In general the patient is awake, interactive, in an emergency department gurney. HEAD/EYES/EARS/NOSE/THROAT: normo-cephalic, atraumatic, mucus membranes are moist, anicteric, palpebral conjunctiva is pink, trachea is midline. CARDIOVASCULAR: regular rate and regular rhythm, no murmurs, heart sounds are not distant, strong pulses in all four extremities that are equal and symmetric bilateral upper and lower extremities, normal capillary refill. CHEST/PULMONARY: normal chest rise and fall, good air movement, clear to auscultation bilaterally, normal inspiratory to expiratory ratios without evidence of respiratory distress. NECK: No midline/Paraspinal tenderness, no step off ROM/Strenght intact No Kernig and bruzinski sign. No trauma ABDOMEN: soft, lower abdominal tenderness, no masses appreciated BACK: normal range of motion without pain. NEUROLOGICAL: cranio-facial features are symmetric, moves all four extremities equally without obvious limitations or weakness. EXTREMITY: no tenderness to palpation over the long bones or large joints of the bilateral upper and lower extremities, no joint swelling, no joint erythema, no signs of trauma, no unilateral leg swelling and no peripheral edema. SKIN: warm, dry, well-perfused, no jaundice, no rash, no telangiectasias or petechia. PSYCH: calm, cooperative, no evidence of psychosis or agitation RME / HPI RME / HPI narrative: 09/12/24 07:54 78-year-old female presents the emergency department today complains of lower abdominal pain which radiates to her chest Related Data Home Medications ?Medication ?Instructions ?Recorded ?Confirmed Bifidobacterium infantis 4 mg 4 mg PO DAILY 06/27/23 06/11/24 capsule (Align) acetaminophen 500 mg tablet 500 mg PO PRN PRN Pain 06/27/23 10/28/23 cholecalciferol (vitamin D3) 25 25 mcg PO 1XD 06/27/23 10/28/23 mcg (1,000 unit) tablet (Vitamin D3) levothyroxine 50 mcg tablet 50 mcg PO DAILY 06/27/23 06/11/24 metformin 500 mg tablet 500 mg PO DAILY 06/27/23 06/11/24 duloxetine 60 mg capsule,delayed 60 mg PO QDAY 08/23/23 06/11/24 release alprazolam 0.5 mg tablet 0.5 mg PO BID PRN Anxiety 10/28/23 06/11/24 benazepril 20 mg tablet 20 mg PO QDAY 10/28/23 06/11/24 loperamide 2 mg capsule 2 mg PO QDAY 10/28/23 10/28/23 pantoprazole 40 mg tablet,delayed 40 mg PO QDAY 10/28/23 06/11/24 release apixaban 5 mg tablet (Eliquis) 5 mg PO QDAY 06/11/24 06/11/24 Previous Rx's ?Medication ?Instructions ?Recorded famotidine 20 mg tablet 20 mg PO BID #20 tabs 11/01/23 ondansetron 4 mg disintegrating 4 mg PO Q8H PRN nausea and 02/22/24 tablet vomiting #30 tabs sucralfate 100 mg/mL oral 5 ml PO QID #420 mL 04/10/24 suspension (Carafate) acetaminophen 300 mg-codeine 30 mg 2 tab PO TID PRN pain #20 tabs 07/02/24 tablet cefdinir 300 mg capsule 300 mg PO BID #14 caps 07/02/24 lidocaine HCl 2 % mucosal solution 5 ml PO TIDPC PRN dyspepsia #300 mL 07/02/24 (Lidocaine Viscous) sucralfate 100 mg/mL oral 10 ml PO TID #500 mL 07/02/24 suspension (Carafate) Allergies Allergy/AdvReac Type Severity Reaction Status Date / Time amoxicillin (From Augmentin) Allergy Severe Hives Verified 09/12/24 08:00 aspirin Allergy Severe Abdominal Verified 09/12/24 08:00 Pain ciprofloxacin (From Cipro) Allergy Severe Gastrointestinal Verified 09/12/24 08:00 Upset clavulanic acid (From Allergy Severe Hives Verified 09/11/24 14:07 Augmentin) codeine Allergy Severe Nausea Verified 09/12/24 08:00 fluconazole Allergy Severe Rash Verified 09/11/24 14:07 gabapentin Allergy Severe Abdominal Verified 09/12/24 08:00 Pain ketorolac (From Toradol) Allergy Severe Abdominal Verified 09/11/24 14:07 Pain nalbuphine Allergy Severe Abdominal Verified 09/12/24 08:00 Pain Sulfa (Sulfonamide Allergy Severe Hives Verified 09/12/24 08:00 Antibiotics) tizanidine Allergy Severe Rash Verified 09/12/24 08:00 tramadol Allergy Severe Rash Verified 09/12/24 08:00 Course Quality Measures none Orders Category Date Time Status CT Screening NOW Care 09/12/24 11:25 Active EKG (ED ONLY) *Do not use* NOW Care 09/12/24 08:[address] abdomen pelvis w con Stat Exams 09/12/24 11:25 Completed EKG (ED Only) Stat Exams 09/12/24 08:13 Draft US transvaginal Stat Exams 09/12/24 16:19 Completed CBC Stat Lab 09/12/24 09:14 Completed Comprehensive Metabolic Panel Stat Lab 09/12/24 09:14 Completed Lipase Stat Lab 09/12/24 09:14 Completed Troponin I Stat Lab 09/12/24 09:14 Completed UA, C/S IF [Urinalysis, C/S if Indicated] Stat Lab 09/12/24 11:20 Completed Famotidine [Pepcid] Med 09/12/24 08:44 Discontinued 20 mg PO X1 ONE HYDROcodone*/APAP 5/325 [[place] 5/325] Med 09/12/24 12:05 Discontinued 1 tab PO X1 ONE HYDROcodone*/APAP 5/325 [[place] 5/325] Med 09/12/24 18:43 Once 1 tab PO X1 ONE LORazepam [Ativan] Med 09/12/24 15:50 Discontinued 0.5 mg PO X1 ONE Lidocaine 2% Viscous [Xylocaine 2% Viscous] Med 09/12/24 08:44 Discontinued 15 ml PO X1 ONE Lidocaine 5% Patch Med 09/12/24 14:30 Discontinued 1 patch TOP X1 ONE mg Hyd/Al Hyd/Jennifer Susp [Maalox Susp] Med 09/12/24 08:44 Discontinued 30 ml PO X1 ONE Reevaluation(s) Reevaluation #1: discussed in lenght about possible addiction with norco. pt report took a while to wean herself off of norco. pt report pain worsen while getting US. family will come get patient. Vital Signs Vital signs: Vital Signs Temperature 97.7 F 09/12/24 08:36 Pulse Rate 82 09/12/24 08:36 Respiratory Rate 20 09/12/24 08:36 Blood Pressure 147/75 H 09/12/24 08:36 Pulse Oximetry (%) 95 09/12/24 08:36 Oxygen Delivery Method Room Air 09/12/24 08:36 Procedures -ED EKG Interpretation #1: Date of EK09/12/24 Rate: 87 Interpretation: Reviewed by me EKG Impression: Normal sinus rhythm, No ischemic changes, Normal QRS and Normal intervals Abdominal Pain MDM Patient data External records reviewed:: [facility] previous records Clinical information provided by:: patient Social determinants that could affect healthcare access:: none Patient has the following chronic illnesses:: colitis , kidney stone, HTN, DM covid-19 How is presenting disease/condition affected by chronic disease/condition?: exacerbated by Evaluation data The following diagnostics were reviewed and interpreted by me:: lab results, radiology exam(s) and EKG tracing(s) Lab and/or radiology exams considered but not ordered:: none Interpretation Summary: cbc: wnl + anemia cmp: wnl urine trop negative US: no acute findings CT: IMPRESSION: No renal or ureteral calculi, no hydronephrosis No CT findings of appendicitis bowel obstruction or diverticulitis Recommend pelvic sonography follow-up to assess 22 mm soft tissue density in the anterior left pelvis Medications / Prescriptions Medications or Prescriptions considered but not ordered:: none Medication administrations:: Medication Administration History Discontinued Medications Hydrocodone Bitart/Acetaminophen (Hydrocodone/Apap 5/325 Tablet) 1 tab PO X1 ONE Stop: 09/12/24 12:06 Last Admin: 09/12/24 12:18 Dose: 1 tab Documented By: HALI Al Hydrox/Mg Hydrox/Simethicone (Mg Hyd/Al Hyd/Jennifer (Maalox Reg) Susp 30 Ml Udc) 30 ml PO X1 ONE Stop: 09/12/24 08:45 Last Admin: 09/12/24 09:28 Dose: 30 ml Documented By: SHELTON Famotidine (Famotidine 20 Mg Tablet) 20 mg PO X1 ONE Stop: 09/12/24 08:45 Last Admin: 09/12/24 09:28 Dose: 20 mg Documented By: SHELTON Lidocaine (Lidocaine 5% 1 Patch) 1 patch TOP X1 ONE Stop: 09/12/24 14:31 Last Admin: 09/12/24 16:24 Dose: 1 patch Documented By: HALI Lidocaine HCl (Lidocaine Viscous 2% 15 Ml Udc) 15 ml PO X1 ONE Stop: 09/12/24 08:45 Last Admin: 09/12/24 09:28 Dose: 15 ml Documented By: SHELTON Lorazepam (Lorazepam 0.5 Mg Tablet) 0.5 mg PO X1 ONE Stop: 09/12/24 15:51 Last Admin: 09/12/24 16:23 Dose: 0.5 mg Documented By: HALI as stated above Consultations Consultation(s) initiated? (list below): No Diagnosis Differential diagnosis abdominal pain: abdominal pain, acute appendicitis, calculus of kidney, constipation, diverticulitis, gastroenteritis, pancreatitis, small bowel obstruction and other (chronic pain, UTI, Mi/nstemi ) Most likely diagnosis given after review of the tests above:: chronic pain, abd pain Admission Indicated Admission indicated?: not indicated Admission Request Was there a request for admission?: No Disposition Plan Disposition Plan: Discharge Discharge Attestation Discharge Attestation: The patient and all family members were given an opportunity to ask questions and understood the discharge instructions. Discharge instructions specifically effects, indications for sooner follow up or return to the emergency department, and the expected course of current diagnosis. Patient condition: Stable Discharge Plan Plan Patient Disposition: HOME (Self Care) Health Concerns: Follow with PMD as directed Take tylenol as need Return to ED if sx worsen Prescriptions/Referrals Prescriptions/Med Rec: No Action metformin 500 mg Tablet 500 mg PO DAILY acetaminophen 500 mg Tablet 500 mg PO PRN MDD 4 PRN (Reason: Pain) levothyroxine 50 mcg Tablet 50 mcg PO DAILY cholecalciferol (vitamin D3) [Vitamin D3] 25 mcg (1,000 unit) Tablet 25 mcg PO 1XD Align 4 mg Capsule 4 mg PO DAILY duloxetine 60 mg capsule,delayed release(DR/EC) 60 mg PO QDAY Rx Instructions: Takes 80mg in the afternoon loperamide 2 mg capsule 2 mg PO QDAY alprazolam 0.5 mg tablet 0.5 mg PO BID PRN (Reason: Anxiety) Patient Comments: TAKE 1 TABLET BY MOUTH THREE TIMES DAILY NEEDED FOR ANXIETY pantoprazole 40 mg tablet,delayed release (DR/EC) 40 mg PO QDAY Patient Comments: TAKE 1 TABLET BY MOUTH DAILY benazepril 20 mg tablet 20 mg PO QDAY famotidine 20 mg tablet 20 mg PO BID Qty: 20 0RF ondansetron 4 mg tablet,disintegrating 4 mg PO Q8H PRN (Reason: nausea and vomiting) Qty: 30 0RF lidocaine HCl [Lidocaine Viscous] 2 % solution 5 ml PO TIDPC MDD 15 mL PRN (Reason: dyspepsia) Qty: 300 0RF sucralfate [Carafate] 100 mg/mL suspension 10 ml PO TID Qty: 500 0RF Rx Instructions: swish in mouth and swallow; use after food/drink acetaminophen-codeine 300-30 mg tablet 2 tab PO TID MDD 6 PRN (Reason: pain) Qty: 20 0RF cefdinir 300 mg capsule 300 mg PO BID Qty: 14 0RF sucralfate [Carafate] 100 mg/mL suspension 5 ml PO QID Qty: 420 0RF Rx Instructions: swish in mouth and swallow; use after food/drink Eliquis 5 mg Tablet 5 mg PO QDAY Referrals: Tyrone Langford MD [Primary Care Provider] - In 1 week Problem List Clinical Impression: Abdominal pain Patient/Caregiver Discharge Instructions Education Materials: Abdominal Pain Print Language: Belarusian Stand Alone Forms: [employer] Award Info., Patient Portal Info Letter
--- NOTE | 2024-09-12 11:25 | XR_ITS ---
Examination: CT abdomen with intravenous contrast CT pelvis with intravenous contrast 2-D coronal reconstructions 2-D sagittal reconstructions Date and time of exam: September 12, 2024 1532 hours Comparison August 18, 2024 INDICATIONS: Lower abdominal pain and tenderness beginning 2 days ago CTDI: vol (mGy) 9.53 DLP: (mGycm) 483 Technique: Multiple axial sections of the abdomen and pelvis have been obtained. 64 slice high-resolution scanner used. 3 mm axial sections have been obtained, post intravenous injection 60 cc [id number] 2-D sagittal, coronal reconstructions obtained. Low dose protocols were performed. One or more of the following dose reduction techniques were used; automated exposure control, adjustment of the mA and/or KV according to patient size, use of iterative reconstruction technique. Findings: 6 mm splenic cyst No focal liver lesions or biliary tract dilatation No gallstones No pancreatic or adrenal mass 14 mm posterior right renal cyst No renal or ureteral calculi, no hydronephrosis Abdominal aortic calcification no aneurysmal dilatation No pericecal inflammatory change Colonic diverticulosis, no diverticulitis Urinary bladder intact No pelvic mass Severe osteopenia Grade 1 anterolisthesis L4 on L5, L5 on S1 Right hip bipolar hemiarthroplasty with satisfactory alignment Soft tissue density in the anterior left pelvis axial image 179, measuring 22 mm IMPRESSION: No renal or ureteral calculi, no hydronephrosis No CT findings of appendicitis bowel obstruction or diverticulitis Recommend pelvic sonography follow-up to assess 22 mm soft tissue density in the anterior left pelvis
[2024-09-12 11:33] LABS: Collection Type, Urine Clean Catch
[2024-09-12 11:48] LABS: Bilirubin,Urine Negative (Negative); Blood,Urine Negative (Negative); Clarity,Urine Clear (Clear/Hazy); Color,Urine Yellow (Lt Yel-Yel); Culture Indicated,Urine Not Indicated; Glucose, Urine Negative (Negative); Ketones,Urine Negative (Negative); Leukocyte Esterase,Urine Positive (Negative); Nitrite,Urine Negative (Negative); Protein,Urine Negative (Neg - Trace); RBC,Urine 1 /hpf (0-3); Specific Gravity,Urine 1.019 (1.001-1.035); Squamous Epithelial Cell,Urine 3 /hpf (0-5); Urobilinogen,Urine Negative mg/dL (0.0-1.0); WBC,Urine 4 /hpf (0-5)
[2024-09-12] MEDS: HYDROcodone/APAP 5/325 TABLET 1 TAB PO ×2 (12:18→19:20)
--- NOTE | 2024-09-12 16:19 | XR_ITS ---
Examination: Transvaginal ultrasound of the pelvis, complete Technique: Transvaginal sonographic images pelvis performed using bowling scale imaging Exam date and time: September 12, 2024 1658 hours INDICATIONS: Lower pelvic pain and tenderness beginning 2 days ago, 22 mm soft tissue density anterior left pelvis on CT examination of the pelvis today FINDINGS: Absent uterus Ovaries are not visualized No soft tissue pelvic mass IMPRESSION: No soft tissue pelvic mass.
[2024-09-12] MEDS: LORazepam 0.5 MG TABLET PO (16:23)
[2024-09-12] MEDS: LIDOCAINE 5% 1 PATCH TOP (16:24)
== END 2024-09-12 19:45 | disposition home or self-care (01) ==
PROVIDERS: Nurse Practitioner Primary Care; Emergency Provider Emergency Medicine; PCP Family Medicine
DX: R10.30 Lower abdominal pain, unspecified (principal)
CPT/HCPCS: 36415; 74177; 76830; 80053; 81001; 83690; 84484; 85025; 93005; 99285; A4649; J3490; Q9967; Z7610; A9270

== ENCOUNTER 2024-09-16 16:55 | Emergency (ER) | payer MEDICARE, BC, SELFPAY ==
[2024-09-16 16:57] VITALS: BP 166/84; PULSE 81; RESP 18; TEMP 36.7; O2SAT 95
[2024-09-16 17:01] VITALS: PULSE 93; RESP 18; O2SAT 96; BMI 32.2
--- NOTE | 2024-09-16 17:43 | PC.NURSE ---
PATIENT STATED THAT SHE CALLED FOR A RIDE AND WAS FEELING BETTER. PATIENT LEFT THE ED AT THIS TIME.
== END 2024-09-16 18:38 | disposition left against medical advice (07) ==
PROVIDERS: Emergency Provider Emergency Medicine
DX: Z53.21 Procedure and treatment not carried out due to patient leaving prior to being seen by health care provider (principal)
CPT/HCPCS: 99281

== ENCOUNTER 2024-09-17 18:14 | Emergency (ER) | payer MEDICARE, BC, SELFPAY ==
[2024-09-17 18:15] VITALS: BMI 32.2
--- NOTE | 2024-09-17 18:46 | EKG_ITS ---
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
[2024-09-17 18:48] VITALS: BP 148/71; PULSE 82; RESP 16; TEMP 37.2; O2SAT 97
--- NOTE | 2024-09-17 19:04 | XR_ITS ---
Examination: Duplex scan of the upper extremity, unilateral left complete Date and time of exam: September [id number] hrs. Indications: Left arm pain beginning one month ago Technique: Duplex scan of the extremity veins using B-mode/grayscale imaging and Doppler spectral analysis and color flow Attention is directed to internal echogenicity, compression and augmentation involving these veins, color flow assessment, spectral analysis Findings: Major deep venous structures in the extremity demonstrate normal course and caliber. There is no evidence of deep vein thrombosis. Normal color flow and spectral analysis Impression: Negative for DVT.. Soft tissue mass in the upper arm consistent with hematoma 3.1 x 1.2 cm x 0.9 cm Consider MRI without contrast Follow-up to assess for biceps tear
--- NOTE | 2024-09-17 19:05 | EDRME_ITS ---
Rapid Medical Screening Exam [facility] Arrival date/time: 09/17/24 18:14 78F with history of HTN, DM, duodenal ulcer and chronic ab pain presents to ED with 2 weeks of L arm pain and swelling w/o fall/trauma. Patient denies SOB and URI symptoms. Chief Complaint: Extremity Problem,Nontraumatic Vital signs: Vital Signs Temperature 98.9 F 09/17/24 18:48 Pulse Rate 82 09/17/24 18:48 Respiratory Rate 16 09/17/24 18:48 Blood Pressure 148/71 H 09/17/24 18:48 Pulse Oximetry (%) 97 09/17/24 18:48 Oxygen Delivery Method Room Air 09/17/24 18:48
--- NOTE | 2024-09-17 23:14 | PD.EDEXREM ---
ED Extremity Problem RME/HPI General Chief complaint: Extremity Problem,Nontraumatic Stated complaint: LEFT UPPER ARM PAIN Source: patient Arrival date/time: 09/17/24 18:14 Mode of arrival: ambulatory Limitations: no limitations RME / HPI RME / HPI Narrative: 09/17/24 18:14 78F with history of HTN, DM, duodenal ulcer and chronic ab pain presents to ED with 2 weeks of L arm pain and swelling w/o fall/trauma. Patient denies SOB and URI symptoms. Dr. Argueta?s Main ED Evaluation: 78-year-old ambulatory female with walker who presents to the emergency department with complaints of discomfort and soreness in the anterior aspect of her left upper arm. She reports that the symptoms have been present for the past few weeks. Although the pain and soreness have been persistent, the patient became increasingly concerned and decided to seek medical evaluation today. The patient has a history of atrial fibrillation and an ablation procedure. She is currently on anticoagulation therapy with Eliquis (apixaban), prescribed by Dr. Reza. She also notes that she is under the regular care of Dr. Daley at [facility] in [place]. The patient denies any other medical complaints at this time, including fever, swelling, redness, trauma to the affected area, or signs of infection. Related Data Home Medications ?Medication ?Instructions ?Recorded ?Confirmed Bifidobacterium infantis 4 mg 4 mg PO DAILY 06/27/23 06/11/24 capsule (Align) acetaminophen 500 mg tablet 500 mg PO PRN PRN Pain 06/27/23 10/28/23 cholecalciferol (vitamin D3) 25 25 mcg PO 1XD 06/27/23 10/28/23 mcg (1,000 unit) tablet (Vitamin D3) levothyroxine 50 mcg tablet 50 mcg PO DAILY 06/27/23 06/11/24 metformin 500 mg tablet 500 mg PO DAILY 06/27/23 06/11/24 duloxetine 60 mg capsule,delayed 60 mg PO QDAY 08/23/23 06/11/24 release alprazolam 0.5 mg tablet 0.5 mg PO BID PRN Anxiety 10/28/23 06/11/24 benazepril 20 mg tablet 20 mg PO QDAY 10/28/23 06/11/24 loperamide 2 mg capsule 2 mg PO QDAY 10/28/23 10/28/23 pantoprazole 40 mg tablet,delayed 40 mg PO QDAY 10/28/23 06/11/24 release apixaban 5 mg tablet (Eliquis) 5 mg PO QDAY 06/11/24 06/11/24 Previous Rx's ?Medication ?Instructions ?Recorded famotidine 20 mg tablet 20 mg PO BID #20 tabs 11/01/23 ondansetron 4 mg disintegrating 4 mg PO Q8H PRN nausea and 02/22/24 tablet vomiting #30 tabs sucralfate 100 mg/mL oral 5 ml PO QID #420 mL 04/10/24 suspension (Carafate) acetaminophen 300 mg-codeine 30 mg 2 tab PO TID PRN pain #20 tabs 07/02/24 tablet cefdinir 300 mg capsule 300 mg PO BID #14 caps 07/02/24 lidocaine HCl 2 % mucosal solution 5 ml PO TIDPC PRN dyspepsia #300 mL 07/02/24 (Lidocaine Viscous) sucralfate 100 mg/mL oral 10 ml PO TID #500 mL 07/02/24 suspension (Carafate) Allergies Allergy/AdvReac Type Severity Reaction Status Date / Time amoxicillin (From Augmentin) Allergy Severe Hives Verified 09/16/24 17:05 aspirin Allergy Severe Abdominal Verified 09/16/24 17:05 Pain ciprofloxacin (From Cipro) Allergy Severe Gastrointestinal Verified 09/16/24 17:05 Upset clavulanic acid (From Allergy Severe Hives Verified 09/16/24 17:05 Augmentin) codeine Allergy Severe Nausea Verified 09/16/24 17:05 fluconazole Allergy Severe Rash Verified 09/16/24 17:05 gabapentin Allergy Severe Abdominal Verified 09/16/24 17:05 Pain ketorolac (From Toradol) Allergy Severe Abdominal Verified 09/16/24 17:05 Pain nalbuphine Allergy Severe Abdominal Verified 09/16/24 17:05 Pain Sulfa (Sulfonamide Allergy Severe Hives Verified 09/16/24 17:05 Antibiotics) tizanidine Allergy Severe Rash Verified 09/16/24 17:05 tramadol Allergy Severe Rash Verified 09/16/24 17:05 Review of Systems Review of Systems Systems Reviewed: All systems reviewed, normal except as documented Past Medical History Past Medical History NEUROLOGIC: Negative Neurological Disorders or Seizures CARDIAC: Positive Cardiac Disorders, Cardiac Arrhythmia, Atrial Fibrillation, Hypercholesterolemia and Hypertension; Negative Congestive Heart Failure RESPIRATORY: Positive Asthma, Pneumonia and Sleep Apnea; Negative Chronic Obstructive Pulmonary Disease (COPD) GASTROINTESTINAL: Positive Gastrointestinal Bleed, Colitis, Ulcerative Colitis, Diverticulitis, Diverticulosis, Irritable Bowel, Obstructive Bowel, Hemorrhoids and Obesity GENITOURINARY: Negative Renal Disease ENT: Positive Cataracts and Ear Infection ENDOCRINE: Positive Hypothyroidism; Negative Diabetes Mellitus Type 1 or Diabetes Mellitus Type 2 HEMATOLOGIC: Negative Sickle Cell Disease PSYCHO/SOCIAL: Positive Anxiety OTHER HISTORY: Positive Falls, Blood Transfusions, Anesthesia Reactions, Chicken Pox, Mumps and Clostridium Difficile; Negative Cancer Family History FAMILY HISTORY: Positive Family Cardiac Disorders; Negative Family Respiratory Disorders Surgical History SURGICAL: Positive Cardiac Surgery (cardiac ablation), Thyroidectomy, Joint Replacement, Hysterectomy and Section Social History SMOKING STATUS: Never smoker SUBSTANCE USE: does not use ED Exam Narrative Physical exam: GENERAL APPEARANCE: alert and oriented x 4, well-developed, well-nourished, no acute distress VITALS: All vitals were reviewed and the pulse ox is 97% on room air, which is normal according to my interpretation. HEENT: Normocephalic, atraumatic; pupils equal, round, reactive to light; EOMI; mucous membranes pink, moist; oropharynx clear NECK: Supple LUNGS: CTABL; no wheezes, no rales, no rhonchi HEART: Regular rate, regular rhythm; normal S1, S2; no murmurs ABDOMEN: non distended; normal BS; soft, no tenderness, no guarding, no rebound; no masses, no organomegaly, no hernia BACK: no CVA tenderness EXTREMITIES: atraumatic; no edema NEUROLOGIC: awake; alert and oriented x4; cranial nerves II-XII grossly intact; no focal sensory or motor deficits PSYCHIATRIC: appropriate mood and affect SKIN: warm, dry, normal color; no rashes General Limitations: Present no limitations Course Quality Measures none Orders Category Date Time Status EKG (ED ONLY) *Do not use* NOW Care 09/17/24 18:46 Completed EKG (ED Only) Stat Exams 09/17/24 18:46 Draft US venous doppler UE LT Stat Exams 09/17/24 19:04 Completed Vital Signs Vital signs: Vital Signs Temperature 98.9 F 09/17/24 18:48 Pulse Rate 82 09/17/24 18:48 Respiratory Rate 16 09/17/24 18:48 Blood Pressure 148/71 H 09/17/24 18:48 Pulse Oximetry (%) 97 09/17/24 18:48 Oxygen Delivery Method Room Air 09/17/24 18:48 Extremity Problem MDM Narrative MDM Narrative:: Scribe Attestation: I, Montez Hutchinson, am scribing for and in the presence of Dr. Argueta. Provider Notation: Although this document has been carefully reviewed, there may still be some phonetic and other typographical errors. These errors are purely grammatical due to imperfections in the software program and should not be construed in any way to compromise the substance of the patient's medical care during this visit. Patient data External records reviewed:: [facility] previous records Clinical information provided by:: patient Social determinants that could affect healthcare access:: none Patient has the following chronic illnesses:: see PMH How is presenting disease/condition affected by chronic disease/condition?: uneffected by Evaluation data The following diagnostics were reviewed and interpreted by me:: lab results, radiology exam(s) and EKG tracing(s) Lab and/or radiology exams considered but not ordered:: n/a Interpretation Summary: I personally reviewed the radiology data and agree with the radiologist's interpretation. Examination: Duplex scan of the upper extremity, unilateral left complete Date and time of exam: September [id number] hrs. Indications: Left arm pain beginning one month ago Findings: Major deep venous structures in the extremity demonstrate normal course and caliber. There is no evidence of deep vein thrombosis. Normal color flow and spectral analysis Impression: Negative for DVT.. Soft tissue mass in the upper arm consistent with hematoma 3.1 x 1.2 cm x 0.9 cm Consider MRI without contrast Follow-up to assess for biceps tear Dictated By: Miles Navas MD Medications / Prescriptions Medications or Prescriptions considered but not ordered:: n/a Medication administrations:: as above, if any Consultations Consultation(s) initiated? (list below): No Diagnosis Extremity Problem Differential Diagnosis: other (Sarcoma vs Hematoma vs Biceps Tendon Rupture vs Other) Most likely diagnosis given after review of the tests above:: see clinical impression below Admission Indicated Admission indicated?: not indicated Admission Request Was there a request for admission?: No Disposition Plan Disposition Plan: Discharge Discharge Attestation Discharge Attestation: The patient and all family members were given an opportunity to ask questions and understood the discharge instructions. Discharge instructions specifically effects, indications for sooner follow up or return to the emergency department, and the expected course of current diagnosis. Patient condition: Stable Discharge Plan Plan Patient Disposition: HOME (Self Care) Disposition Comment: Stable for discharge Patient condition on transfer: Stable Prescriptions/Referrals Prescriptions/Med Rec: No Action metformin 500 mg Tablet 500 mg PO DAILY acetaminophen 500 mg Tablet 500 mg PO PRN MDD 4 PRN (Reason: Pain) levothyroxine 50 mcg Tablet 50 mcg PO DAILY cholecalciferol (vitamin D3) [Vitamin D3] 25 mcg (1,000 unit) Tablet 25 mcg PO 1XD Align 4 mg Capsule 4 mg PO DAILY duloxetine 60 mg capsule,delayed release(DR/EC) 60 mg PO QDAY Rx Instructions: Takes 80mg in the afternoon loperamide 2 mg capsule 2 mg PO QDAY alprazolam 0.5 mg tablet 0.5 mg PO BID PRN (Reason: Anxiety) Patient Comments: TAKE 1 TABLET BY MOUTH THREE TIMES DAILY NEEDED FOR ANXIETY pantoprazole 40 mg tablet,delayed release (DR/EC) 40 mg PO QDAY Patient Comments: TAKE 1 TABLET BY MOUTH DAILY benazepril 20 mg tablet 20 mg PO QDAY famotidine 20 mg tablet 20 mg PO BID Qty: 20 0RF ondansetron 4 mg tablet,disintegrating 4 mg PO Q8H PRN (Reason: nausea and vomiting) Qty: 30 0RF lidocaine HCl [Lidocaine Viscous] 2 % solution 5 ml PO TIDPC MDD 15 mL PRN (Reason: dyspepsia) Qty: 300 0RF sucralfate [Carafate] 100 mg/mL suspension 10 ml PO TID Qty: 500 0RF Rx Instructions: swish in mouth and swallow; use after food/drink acetaminophen-codeine 300-30 mg tablet 2 tab PO TID MDD 6 PRN (Reason: pain) Qty: 20 0RF cefdinir 300 mg capsule 300 mg PO BID Qty: 14 0RF sucralfate [Carafate] 100 mg/mL suspension 5 ml PO QID Qty: 420 0RF Rx Instructions: swish in mouth and swallow; use after food/drink Eliquis 5 mg Tablet 5 mg PO QDAY Referrals: Chuy Langford MD [Primary Care Provider] - In 1 week Problem List Clinical Impression: Hematoma Patient/Caregiver Discharge Instructions Discharge Activity: activity as tolerated Education Materials: ED Hematoma Additional Instructions: Please return to the emergency department for any worsening or any further medical problems. Otherwise you should follow-up with your primary care doctor within the next several days. Also you should follow-up with Dr. Reza within the next several days. Print Language: Slovak Stand Alone Forms: [employer] Award Info., Patient Portal Info Letter
== END 2024-09-17 23:51 | disposition home or self-care (01) ==
PROVIDERS: Emergency Provider Emergency Medicine; PCP Family Medicine
DX: M79.81 Nontraumatic hematoma of soft tissue (principal); E11.9 Type 2 diabetes mellitus without complications; I10 Essential (primary) hypertension; I48.91 Unspecified atrial fibrillation; Z79.01 Long term (current) use of anticoagulants; Z88.5 Allergy status to narcotic agent
CPT/HCPCS: 93005; 93971; 99284

== ENCOUNTER 2024-09-24 18:24 | Emergency (ER) | payer MEDICARE, BC, SELFPAY ==
--- NOTE | 2024-09-24 18:50 | PD.EDADDENDU ---
Emergency Room Addendum Addendum Narrative: Before seeing the patient, I was told she eloped. Abhijeet Hernadez MD
== END 2024-09-24 19:07 | disposition left against medical advice (07) ==
PROVIDERS: Emergency Provider Emergency Medicine
DX: Z53.21 Procedure and treatment not carried out due to patient leaving prior to being seen by health care provider (principal)

== ENCOUNTER 2024-09-29 05:29 | Emergency (ER) | payer MEDICARE, BC, SELFPAY ==
[2024-09-29 05:34] VITALS: BP 169/88; PULSE 85; RESP 18; TEMP 36.7; O2SAT 95
--- NOTE | 2024-09-29 06:34 | EDRME_ITS ---
Rapid Medical Screening Exam [facility] Arrival date/time: 09/29/24 0600 78-year-old female presents to the emergency department complaints of lower abdominal pain. I have greeted and performed a focused initial assessment of this patient. Initial appropriate labs ordered at this time. A comprehensive ED assessment and evaluation of the patient and analysis of all test and completion of medical decision making process will be conducted by additional ED provider. Chief Complaint: Abdominal Pain Time Seen by Provider: 09/29/24 06:12 Vital signs: Vital Signs Temperature 98.1 F 09/29/24 05:34 Pulse Rate 85 09/29/24 05:34 Respiratory Rate 18 09/29/24 05:34 Blood Pressure 169/88 H 09/29/24 05:34 Pulse Oximetry (%) 95 09/29/24 05:34 Oxygen Delivery Method Room Air 09/29/24 05:34
[2024-09-29] MEDS: ACETAMINOPHEN 500 MG TABLET 1000 MG PO (06:43)
[2024-09-29] MEDS: METOCLOPRAMIDE 5 MG TABLET 10 MG PO (06:43)
--- NOTE | 2024-09-29 07:09 | PC.NURSE ---
PT CAME TO THIS NURSE AND STATED, I AM GOING HOME AND TAKE MY VALIUM AND PT TOOK OFF HER PT ARM BAN AND LEFT
== END 2024-09-29 07:11 | disposition left against medical advice (07) ==
LOC: SERX 06:47
PROVIDERS: Emergency Provider Emergency Medicine; PCP Family Medicine
DX: R10.30 Lower abdominal pain, unspecified (principal); Z53.29 Procedure and treatment not carried out because of patient's decision for other reasons
CPT/HCPCS: 80053; 81001; 83690; 85025; 99281; A9270

== ENCOUNTER 2024-09-29 14:35 | Emergency (ER) | payer MEDICARE, BC, SELFPAY ==
[2024-09-29 14:37] VITALS: BMI 32.2
[2024-09-29 15:15] VITALS: BP 146/72; PULSE 81; RESP 18; TEMP 36.9; O2SAT 96
[2024-09-29] MEDS: MG HYD/AL HYD/SIME (Maalox Reg) SUSP 30 ML UDC PO (15:49)
[2024-09-29] MEDS: LIDOCAINE VISCOUS 2% 15 ML UDC PO (15:49)
[2024-09-29] MEDS: METOCLOPRAMIDE LIQD 10 MG/10 ML UDC PO (15:49)
--- NOTE | 2024-09-29 15:50 | PD.EDABDPN ---
ED Abdominal Pain RME/HPI General Chief Complaint: Abdominal Pain Stated complaint: Right abdominal pain, NVD x this morning Time seen by provider: 09/29/24 14:54 Arrival date/time: 09/29/24 14:35 79-year-old female well-known to the emergency department reports with complaints of persistent chronic abdominal pain. Patient reports having an appointment this afternoon with GI but is unable to tolerate the abdominal pain. She denies fever chills nausea vomiting diarrhea constipation blood or mucus in stools dysuria urinary urgency frequency or hematuria. Patient reports she has been taking Carafate and lidocaine medication for gastritis however symptoms have not improved. He does report she was recently discharged this morning with similar symptoms Limitations: no limitations Related Data Home Medications ?Medication ?Instructions ?Recorded ?Confirmed Bifidobacterium infantis 4 mg 4 mg PO DAILY 06/27/23 06/11/24 capsule (Align) acetaminophen 500 mg tablet 500 mg PO PRN PRN Pain 06/27/23 10/28/23 cholecalciferol (vitamin D3) 25 25 mcg PO 1XD 06/27/23 10/28/23 mcg (1,000 unit) tablet (Vitamin D3) levothyroxine 50 mcg tablet 50 mcg PO DAILY 06/27/23 06/11/24 metformin 500 mg tablet 500 mg PO DAILY 06/27/23 06/11/24 duloxetine 60 mg capsule,delayed 60 mg PO QDAY 08/23/23 06/11/24 release alprazolam 0.5 mg tablet 0.5 mg PO BID PRN Anxiety 10/28/23 06/11/24 benazepril 20 mg tablet 20 mg PO QDAY 10/28/23 06/11/24 loperamide 2 mg capsule 2 mg PO QDAY 10/28/23 10/28/23 pantoprazole 40 mg tablet,delayed 40 mg PO QDAY 10/28/23 06/11/24 release apixaban 5 mg tablet (Eliquis) 5 mg PO QDAY 06/11/24 06/11/24 Previous Rx's ?Medication ?Instructions ?Recorded famotidine 20 mg tablet 20 mg PO BID #20 tabs 11/01/23 ondansetron 4 mg disintegrating 4 mg PO Q8H PRN nausea and 02/22/24 tablet vomiting #30 tabs sucralfate 100 mg/mL oral 5 ml PO QID #420 mL 04/10/24 suspension (Carafate) acetaminophen 300 mg-codeine 30 mg 2 tab PO TID PRN pain #20 tabs 07/02/24 tablet cefdinir 300 mg capsule 300 mg PO BID #14 caps 07/02/24 lidocaine HCl 2 % mucosal solution 5 ml PO TIDPC PRN dyspepsia #300 mL 07/02/24 (Lidocaine Viscous) sucralfate 100 mg/mL oral 10 ml PO TID #500 mL 07/02/24 suspension (Carafate) Allergies Allergy/AdvReac Type Severity Reaction Status Date / Time amoxicillin (From Augmentin) Allergy Severe Hives Verified 10/06/24 00:28 aspirin Allergy Severe Abdominal Verified 10/06/24 00:28 Pain ciprofloxacin (From Cipro) Allergy Severe Gastrointestinal Verified 10/06/24 00:28 Upset clavulanic acid (From Allergy Severe Hives Verified 10/06/24 00:28 Augmentin) codeine Allergy Severe Nausea Verified 10/06/24 00:28 fluconazole Allergy Severe Rash Verified 10/06/24 00:28 gabapentin Allergy Severe Abdominal Verified 10/06/24 00:28 Pain ketorolac (From Toradol) Allergy Severe Abdominal Verified 10/06/24 00:28 Pain nalbuphine Allergy Severe Abdominal Verified 10/06/24 00:28 Pain Sulfa (Sulfonamide Allergy Severe Hives Verified 10/06/24 00:28 Antibiotics) tizanidine Allergy Severe Rash Verified 10/06/24 00:28 tramadol Allergy Severe Rash Verified 10/06/24 00:28 Review of Systems Review of Systems Systems Reviewed: All systems reviewed, normal except as documented Narrative Review of Systems: Gen: No fever, no chills, no weight loss EYES: No discharge, no visual changes, no pain HEENT: No ear pain, no congestion, no sore throat PULM: No shortness of breath, no cough, no congestion CV: No chest pain, no dyspnea on exertion, no palpitations GI: No nausea, no vomiting, no diarrhea, + epigastric pain, no constipation : No frequency, no urgency,? no dysuria Musc/skel: No joint pain, no back pain Skin: No rash? Psyc: No hallucinations, no depression Heme/Lymph: No easy bleeding or bruising tendencies Neuro: No weakness, no headache ED Exam General Limitations: Present no limitations General appearance: Present alert and in no apparent distress Head Head exam: Present atraumatic Eye Eye exam: Present normal appearance, PERRL and EOMI ENT ENT exam: Present normal exam, normal oropharynx and mucous membranes moist Neck Neck exam: Present normal inspection, full ROM and trachea midline Chest Chest inspection: Present normal inspection and symmetric chest wall rise Respiratory Respiratory exam: Present normal lung sounds bilaterally Cardiovascular Cardiovascular exam: Present regular rate, normal rhythm and normal heart sounds Abdominal Exam Abdominal exam: Present soft and normal bowel sounds Extremities Exam Extremities exam: Present normal inspection and full ROM Back Exam Back exam: Present normal inspection and full ROM Neurological Exam Neurological exam: Present alert, oriented X3 and CN II-XII intact Psychiatric Psychiatric exam: Present normal affect and normal mood Skin Skin exam: Present warm, dry, intact and normal color Course Quality Measures none Orders Category Date Time Status Lidocaine 2% Viscous [Xylocaine 2% Viscous] Med 09/29/24 15:27 Discontinued 15 ml PO X1 ONE Metoclopramide [Reglan] Med 09/29/24 15:27 Discontinued 10 mg PO X1 ONE mg Hyd/Al Hyd/Jennifer Susp [Maalox Susp] Med 09/29/24 15:27 Discontinued 30 ml PO X1 ONE Vital Signs Vital signs: Vital Signs Temperature 98.4 F 09/29/24 15:15 Pulse Rate 81 09/29/24 15:15 Respiratory Rate 18 09/29/24 15:15 Blood Pressure 146/72 H 09/29/24 15:15 Pulse Oximetry (%) 96 09/29/24 15:15 Oxygen Delivery Method Room Air 09/29/24 15:15 Abdominal Pain MDM Patient data External records reviewed:: [facility] previous records Clinical information provided by:: patient Social determinants that could affect healthcare access:: none Patient has the following chronic illnesses:: htn, chronic pain syndrome How is presenting disease/condition affected by chronic disease/condition?: exacerbated by Evaluation data The following diagnostics were reviewed and interpreted by me:: other (specify) Lab and/or radiology exams considered but not ordered:: no Interpretation Summary: n/a Medications / Prescriptions Medications or Prescriptions considered but not ordered:: no Medication administrations:: Medication Administration History Discontinued Medications Al Hydrox/Mg Hydrox/Simethicone (Mg Hyd/Al Hyd/Jennifer (Maalox Reg) Susp 30 Ml Udc) 30 ml PO X1 ONE Stop: 09/29/24 15:28 Last Admin: 09/29/24 15:49 Dose: 30 ml Documented By: JASWANT Lidocaine HCl (Lidocaine Viscous 2% 15 Ml Udc) 15 ml PO X1 ONE Stop: 09/29/24 15:28 Last Admin: 09/29/24 15:49 Dose: 15 ml Documented By: JASWANT Metoclopramide HCl (Metoclopramide Liqd 10 Mg/10 Ml Udc) 10 mg PO X1 ONE Stop: 09/29/24 15:28 Last Admin: 09/29/24 15:49 Dose: 10 mg Documented By: JASWANT meds administered Consultations Consultation(s) initiated? (list below): No Diagnosis Differential diagnosis abdominal pain: constipation, gastroenteritis and other (gastritis pain) Most likely diagnosis given after review of the tests above:: gastrtis pattern pain Admission Indicated Admission indicated?: not indicated Admission Request Was there a request for admission?: No Disposition Plan Disposition Plan: Discharge Discharge Attestation Discharge Attestation: The patient and all family members were given an opportunity to ask questions and understood the discharge instructions. Discharge instructions specifically effects, indications for sooner follow up or return to the emergency department, and the expected course of current diagnosis. Patient condition: Stable Discharge Plan Plan Patient Disposition: HOME (Self Care) Prescriptions/Referrals Prescriptions/Med Rec: No Action metformin 500 mg Tablet 500 mg PO DAILY acetaminophen 500 mg Tablet 500 mg PO PRN MDD 4 PRN (Reason: Pain) levothyroxine 50 mcg Tablet 50 mcg PO DAILY cholecalciferol (vitamin D3) [Vitamin D3] 25 mcg (1,000 unit) Tablet 25 mcg PO 1XD Align 4 mg Capsule 4 mg PO DAILY duloxetine 60 mg capsule,delayed release(DR/EC) 60 mg PO QDAY Rx Instructions: Takes 80mg in the afternoon loperamide 2 mg capsule 2 mg PO QDAY alprazolam 0.5 mg tablet 0.5 mg PO BID PRN (Reason: Anxiety) Patient Comments: TAKE 1 TABLET BY MOUTH THREE TIMES DAILY NEEDED FOR ANXIETY pantoprazole 40 mg tablet,delayed release (DR/EC) 40 mg PO QDAY Patient Comments: TAKE 1 TABLET BY MOUTH DAILY benazepril 20 mg tablet 20 mg PO QDAY famotidine 20 mg tablet 20 mg PO BID Qty: 20 0RF ondansetron 4 mg tablet,disintegrating 4 mg PO Q8H PRN (Reason: nausea and vomiting) Qty: 30 0RF lidocaine HCl [Lidocaine Viscous] 2 % solution 5 ml PO TIDPC MDD 15 mL PRN (Reason: dyspepsia) Qty: 300 0RF sucralfate [Carafate] 100 mg/mL suspension 10 ml PO TID Qty: 500 0RF Rx Instructions: swish in mouth and swallow; use after food/drink acetaminophen-codeine 300-30 mg tablet 2 tab PO TID MDD 6 PRN (Reason: pain) Qty: 20 0RF cefdinir 300 mg capsule 300 mg PO BID Qty: 14 0RF sucralfate [Carafate] 100 mg/mL suspension 5 ml PO QID Qty: 420 0RF Rx Instructions: swish in mouth and swallow; use after food/drink Eliquis 5 mg Tablet 5 mg PO QDAY Problem List Clinical Impression: Abdominal pain Patient/Caregiver Discharge Instructions Discharge Activity: activity as tolerated Education Materials: Abdominal Pain Additional Instructions: Please make sure you follow-up with your primary doctor Keep your appointment with your [employer] financial[employer] developer. Return to the emergency department this any worsening symptoms change in condition. Print Language: Omani Stand Alone Forms: [employer] Award Info., Patient Portal Info Letter PA/CERTIFIED MEDICAL CODER Supervising Physician PA/CERTIFIED MEDICAL CODER Supervising Physician: dr. Machuca
== END 2024-09-29 16:13 | disposition home or self-care (01) ==
LOC: SERX 15:56
PROVIDERS: Emergency Provider Emergency Medicine; PCP Family Medicine
DX: R10.9 Unspecified abdominal pain (principal); G89.29 Other chronic pain
CPT/HCPCS: 99282; J3490; A9270

== ENCOUNTER 2024-09-29 19:36 | Emergency (ER) | payer MEDICARE, BC, SELFPAY ==
[2024-09-29 19:45] VITALS: PULSE 87; RESP 20; O2SAT 97
[2024-09-29 20:27] VITALS: BP 163/73; PULSE 75; RESP 20; TEMP 36.4; O2SAT 95
[2024-09-29] MEDS: PROMETHAZINE HCL 25 MG TABLET PO (20:47)
--- NOTE | 2024-09-29 20:47 | PD.EDABDPN ---
ED Abdominal Pain RME/HPI General Stated complaint: ABD PAIN Time seen by provider: 09/29/24 20:41 Arrival date/time: 09/29/24 19:36 78F with history of HTN, DM, duodenal ulcer and chronic ab pain presents to ED with epigastric pain and N/V. Patient states she has GI appt with Dr. Osuna next week. Patient just wants meds and declines diagnostics. Limitations: no limitations Related Data Home Medications ?Medication ?Instructions ?Recorded ?Confirmed Bifidobacterium infantis 4 mg 4 mg PO DAILY 06/27/23 06/11/24 capsule (Align) acetaminophen 500 mg tablet 500 mg PO PRN PRN Pain 06/27/23 10/28/23 cholecalciferol (vitamin D3) 25 25 mcg PO 1XD 06/27/23 10/28/23 mcg (1,000 unit) tablet (Vitamin D3) levothyroxine 50 mcg tablet 50 mcg PO DAILY 06/27/23 06/11/24 metformin 500 mg tablet 500 mg PO DAILY 06/27/23 06/11/24 duloxetine 60 mg capsule,delayed 60 mg PO QDAY 08/23/23 06/11/24 release alprazolam 0.5 mg tablet 0.5 mg PO BID PRN Anxiety 10/28/23 06/11/24 benazepril 20 mg tablet 20 mg PO QDAY 10/28/23 06/11/24 loperamide 2 mg capsule 2 mg PO QDAY 10/28/23 10/28/23 pantoprazole 40 mg tablet,delayed 40 mg PO QDAY 10/28/23 06/11/24 release apixaban 5 mg tablet (Eliquis) 5 mg PO QDAY 06/11/24 06/11/24 Previous Rx's ?Medication ?Instructions ?Recorded famotidine 20 mg tablet 20 mg PO BID #20 tabs 11/01/23 ondansetron 4 mg disintegrating 4 mg PO Q8H PRN nausea and 02/22/24 tablet vomiting #30 tabs sucralfate 100 mg/mL oral 5 ml PO QID #420 mL 04/10/24 suspension (Carafate) acetaminophen 300 mg-codeine 30 mg 2 tab PO TID PRN pain #20 tabs 07/02/24 tablet cefdinir 300 mg capsule 300 mg PO BID #14 caps 11/23/24 lidocaine HCl 2 % mucosal solution 5 ml PO TIDPC PRN dyspepsia #300 mL 07/02/24 (Lidocaine Viscous) sucralfate 100 mg/mL oral 10 ml PO TID #500 mL 07/02/24 suspension (Carafate) Allergies Allergy/AdvReac Type Severity Reaction Status Date / Time amoxicillin (From Augmentin) Allergy Severe Hives Verified 09/29/24 19:45 aspirin Allergy Severe Abdominal Verified 09/29/24 19:45 Pain ciprofloxacin (From Cipro) Allergy Severe Gastrointestinal Verified 09/29/24 19:45 Upset clavulanic acid (From Allergy Severe Hives Verified 09/24/24 18:27 Augmentin) codeine Allergy Severe Nausea Verified 09/24/24 18:27 fluconazole Allergy Severe Rash Verified 09/24/24 18:27 gabapentin Allergy Severe Abdominal Verified 09/24/24 18:27 Pain ketorolac (From Toradol) Allergy Severe Abdominal Verified 09/24/24 18:27 Pain nalbuphine Allergy Severe Abdominal Verified 09/24/24 18:27 Pain Sulfa (Sulfonamide Allergy Severe Hives Verified 09/24/24 18:27 Antibiotics) tizanidine Allergy Severe Rash Verified 09/24/24 18:27 tramadol Allergy Severe Rash Verified 09/24/24 18:27 Review of Systems Review of Systems Systems Reviewed: All systems reviewed, normal except as documented Constitutional Constitutional: Reports system reviewed and no additional complaints, except as documented, Denies fever(s) and Denies headache(s) ENT Ears, Nose, Mouth, and Throat: Denies disequilibrium and Denies headache(s) Cardiovascular Cardiovascular: Reports system reviewed and no additional complaints, except as documented, Denies chest pain and Denies dyspnea Respiratory Respiratory: Reports system reviewed and no additional complaints, except as documented, Denies cough and Denies dyspnea Gastrointestinal Gastrointestinal: Reports system reviewed and no additional complaints, except as documented, Reports as per HPI, Reports abdominal pain, Reports nausea and Reports vomiting Neurologic Neurologic: Reports system reviewed and no additional complaints, except as documented, Denies confusion, Denies disequilibrium and Denies headache(s) Psychiatric Psychiatric: Denies confusion Past Medical History Past Medical History NEUROLOGIC: Negative Neurological Disorders or Seizures CARDIAC: Positive Cardiac Disorders, Cardiac Arrhythmia, Atrial Fibrillation, Hypercholesterolemia and Hypertension; Negative Congestive Heart Failure RESPIRATORY: Positive Asthma, Pneumonia and Sleep Apnea; Negative Chronic Obstructive Pulmonary Disease (COPD) GASTROINTESTINAL: Positive Gastrointestinal Bleed, Colitis, Ulcerative Colitis, Diverticulitis, Diverticulosis, Irritable Bowel, Obstructive Bowel, Hemorrhoids and Obesity GENITOURINARY: Negative Renal Disease ENT: Positive Cataracts and Ear Infection ENDOCRINE: Positive Hypothyroidism; Negative Diabetes Mellitus Type 1 or Diabetes Mellitus Type 2 HEMATOLOGIC: Negative Sickle Cell Disease PSYCHO/SOCIAL: Positive Anxiety OTHER HISTORY: Positive Falls, Blood Transfusions, Anesthesia Reactions, Chicken Pox, Mumps and Clostridium Difficile; Negative Cancer Family History FAMILY HISTORY: Positive Family Cardiac Disorders; Negative Family Respiratory Disorders Surgical History SURGICAL: Positive Cardiac Surgery (cardiac ablation), Thyroidectomy, Joint Replacement, Hysterectomy and Section Social History SMOKING STATUS: Never smoker SUBSTANCE USE: does not use ED Exam General Limitations: Present no limitations General appearance: Present alert and in no apparent distress Head Head exam: Present atraumatic Eye Eye exam: Present normal appearance, PERRL and EOMI ENT ENT exam: Present normal exam, normal oropharynx and mucous membranes moist Neck Neck exam: Present normal inspection, full ROM and trachea midline Chest Chest inspection: Present normal inspection and symmetric chest wall rise Respiratory Respiratory exam: Present normal lung sounds bilaterally Cardiovascular Cardiovascular exam: Present regular rate, normal rhythm and normal heart sounds Abdominal Exam Abdominal exam: Present soft and normal bowel sounds Extremities Exam Extremities exam: Present normal inspection and full ROM Back Exam Back exam: Present normal inspection and full ROM Neurological Exam Neurological exam: Present alert, oriented X3 and CN II-XII intact Psychiatric Psychiatric exam: Present normal affect and normal mood Skin Skin exam: Present warm, dry, intact and normal color Course Quality Measures none Orders Category Date Time Status Diazepam [Valium] Med 09/29/24 20:41 Discontinued 5 mg PO X1 ONE Famotidine [Pepcid] Med 09/29/24 20:41 Discontinued 40 mg PO X1 ONE Famotidine [Pepcid] Med 09/29/24 20:47 Discontinued 40 mg PO X1 ONE Promethazine HCl [Phenergan] Med 09/29/24 20:43 Discontinued 25 mg PO X1 ONE Sucralfate [Carafate] Med 09/29/24 20:41 Discontinued 1 gm PO X1 ONE Vital Signs Vital signs: Vital Signs Temperature 97.5 F 09/29/24 20:27 Pulse Rate 75 09/29/24 20:27 Respiratory Rate 20 09/29/24 20:27 Blood Pressure 163/73 H 09/29/24 20:27 Pulse Oximetry (%) 95 02/20/25 20:27 Oxygen Delivery Method Room Air 09/29/24 20:27 O2 at 95% on RA and WNLs Abdominal Pain MDM MDM Narrative MDM Narrative:: 78F with history of HTN, DM, duodenal ulcer and chronic ab pain presents to ED with epigastric pain and N/V. Patient states she has GI appt with Dr. Osuna next week. Patient just wants meds and declines diagnostics. Physical exam reveals no ab tenderness. Patient is afebrile, calm, and alert. Meds and juvenile counselor given. Patient data External records reviewed:: [facility] previous records Clinical information provided by:: patient Social determinants that could affect healthcare access:: mental health Patient has the following chronic illnesses:: HTN, DM, duodenal ulcer and chronic ab pain How is presenting disease/condition affected by chronic disease/condition?: caused by Evaluation data The following diagnostics were reviewed and interpreted by me:: other (specify) (none) Lab and/or radiology exams considered but not ordered:: not ordered Interpretation Summary: n/a Medications / Prescriptions Medications or Prescriptions considered but not ordered:: ordered Medication administrations:: Medication Administration History Discontinued Medications Diazepam (Diazepam 5 Mg Tablet) 5 mg PO X1 ONE Stop: 09/29/24 20:42 Last Admin: 09/29/24 20:48 Dose: 5 mg Documented By: GERARDO Famotidine (Famotidine 20 Mg Tablet) 40 mg PO X1 ONE Stop: 09/29/24 20:42 Famotidine (Famotidine 20 Mg Tablet) 40 mg PO X1 ONE Stop: 09/29/24 20:48 Promethazine HCl (Promethazine Hcl 25 Mg Tablet) 25 mg PO X1 ONE Stop: 09/29/24 20:44 Last Admin: 09/29/24 20:47 Dose: 25 mg Documented By: GERARDO Sucralfate (Sucralfate 1 Gm Tablet) 1 gm PO X1 ONE Stop: 09/29/24 20:42 above Consultations Consultation(s) initiated? (list below): No Diagnosis Differential diagnosis abdominal pain: abdominal pain, acute appendicitis, calculus of kidney, constipation, diverticulitis, endometriosis, gastroenteritis, pancreatitis, small bowel obstruction and other (chronic epigastric pain ) Most likely diagnosis given after review of the tests above:: chronic epigastric pain Admission Indicated Admission indicated?: not indicated Admission Request Was there a request for admission?: No Disposition Plan Disposition Plan: Discharge Discharge Attestation Discharge Attestation: The patient and all family members were given an opportunity to ask questions and understood the discharge instructions. Discharge instructions specifically effects, indications for sooner follow up or return to the emergency department, and the expected course of current diagnosis. Patient condition: Stable Discharge Plan Plan Patient Disposition: HOME (Self Care) Disposition Comment: Stable Prescriptions/Referrals Prescriptions/Med Rec: No Action metformin 500 mg Tablet 500 mg PO DAILY acetaminophen 500 mg Tablet 500 mg PO PRN MDD 4 PRN (Reason: Pain) levothyroxine 50 mcg Tablet 50 mcg PO DAILY cholecalciferol (vitamin D3) [Vitamin D3] 25 mcg (1,000 unit) Tablet 25 mcg PO 1XD Align 4 mg Capsule 4 mg PO DAILY duloxetine 60 mg capsule,delayed release(DR/EC) 60 mg PO QDAY Rx Instructions: Takes 80mg in the afternoon loperamide 2 mg capsule 2 mg PO QDAY alprazolam 0.5 mg tablet 0.5 mg PO BID PRN (Reason: Anxiety) Patient Comments: TAKE 1 TABLET BY MOUTH THREE TIMES DAILY NEEDED FOR ANXIETY pantoprazole 40 mg tablet,delayed release (DR/EC) 40 mg PO QDAY Patient Comments: TAKE 1 TABLET BY MOUTH DAILY benazepril 20 mg tablet 20 mg PO QDAY famotidine 20 mg tablet 20 mg PO BID Qty: 20 0RF ondansetron 4 mg tablet,disintegrating 4 mg PO Q8H PRN (Reason: nausea and vomiting) Qty: 30 0RF lidocaine HCl [Lidocaine Viscous] 2 % solution 5 ml PO TIDPC MDD 15 mL PRN (Reason: dyspepsia) Qty: 300 0RF sucralfate [Carafate] 100 mg/mL suspension 10 ml PO TID Qty: 500 0RF Rx Instructions: swish in mouth and swallow; use after food/drink acetaminophen-codeine 300-30 mg tablet 2 tab PO TID MDD 6 PRN (Reason: pain) Qty: 20 0RF cefdinir 300 mg capsule 300 mg PO BID Qty: 14 0RF sucralfate [Carafate] 100 mg/mL suspension 5 ml PO QID Qty: 420 0RF Rx Instructions: swish in mouth and swallow; use after food/drink Eliquis 5 mg Tablet 5 mg PO QDAY Problem List Clinical Impression: Abdominal pain, chronic, epigastric Patient/Caregiver Discharge Instructions Additional Instructions: Please follow-up with PCP within 24-48 hours and return immediately if symptoms worsen. Print Language: Israeli Stand Alone Forms: Patient Portal Info Letter PA/STOCKROOM KEEPER Supervising Physician PA/STOCKROOM KEEPER Supervising Physician: Dr. Argueta
[2024-09-29] MEDS: DIAZEPAM 5 MG TABLET PO (20:48)
[2024-09-29] MEDS: FAMOTIDINE 20 MG TABLET 40 MG PO (20:50)
== END 2024-09-29 21:05 | disposition home or self-care (01) ==
LOC: SERX 21:09
PROVIDERS: Emergency Provider Emergency Medicine
DX: R10.13 Epigastric pain (principal); G89.29 Other chronic pain
CPT/HCPCS: 99282; A9270

== ENCOUNTER → 2024-09-30 | Outpatient (CLI) | payer MEDICARE, BC, SELFPAY ==
[2024-09-30 15:15] LABS: Basophils # (Auto) 0.1 Thou/mm3 (0.0-0.2); Basophils % (Auto) 1 % (0-2.5); Eosinophils % (Auto) 0 % (0-10); Hematocrit 33.4 % (36.0-46.0); Hemoglobin 10.1 g/dL (12.0-16.0); Immature Granulocytes % (Auto) 0 % (0-0); Immature Granulocytes Auto 0.01 Thou/mm3 (0.00-0.00); Lymphocytes % (Auto) 25 % (10-50); Mean Corpuscular HGB Conc 30.2 g/dl (31.0-37.0); Mean Corpuscular Hemoglobin 23.7 pg (25.0-35.0); Mean Corpuscular Volume 78 fL (80-100); Monocytes # (Auto) 0.7 Thou/mm3 (0.0-0.8); Monocytes % (Auto) 8 % (0-12); Neutrophils # (Auto) 5.2 Thou/mm3 (1.8-7.7); Neutrophils % (Auto) 66 % (37-80); Nucleated Red Blood Cell % 0 /100 WBC (0); Platelet Count 482 Thou/mm3 (140-440); RDW Standard Deviation 49.6 fL (36.4-46.3); Red Blood Count 4.27 Miln/mm3 (4.00-5.20); White Blood Count 7.9 Thou/mm3 (3.6-11.0)
[2024-09-30 15:36] LABS: Alanine Aminotransferase 17 U/L (10-49); Albumin, Serum 4.7 gm/dL (3.4-4.8); Albumin/Globulin Ratio 1.6 (1.2-2.2); Alkaline Phosphatase 81 U/L (46-116); Anion Gap 12 (7-16); Aspartate Amino Transferase 16 U/L (0-34); BUN/Creatinine Ratio 15 Ratio (12-20); Bilirubin,Total 0.3 mg/dL (0.3-1.2); Blood Urea Nitrogen 15 mg/dL (9-23); Carbon Dioxide 27.5 mMol/L (20.0-31.0); Chloride 99 mMol/L (98-107); Globulin 2.9 gm/dL (2.3-3.5); Glucose 141 mg/dL (74-106); Osmolality,Calculated 278 (275-295); Potassium 5.1 mMol/L (3.4-5.1); Sodium 138 mMol/L (136-145); Total Protein 7.6 gm/dL (5.7-8.2); eGFR 58 See Note
== END | disposition home or self-care (01) ==
LOC: COPL 14:24
PROVIDERS: PCP Nurse Practitioner Family; Referring Provider Nurse Practitioner Family; Visit Provider Nurse Practitioner Family
DX: K26.4 Chronic or unspecified duodenal ulcer with hemorrhage (principal)
CPT/HCPCS: 36415; 80053; 85025

== ENCOUNTER → 2024-10-05 | Outpatient (CLI) | payer MEDICARE, BC, SELFPAY ==
--- NOTE | 2024-10-05 08:42 | XR_ITS ---
Examination: Abdomen AP single view Technique: AP portable supine abdomen, single view Exam date and time: October 05, 2024 0910 hrs. Indications: Abdominal pain 2 months, history stomach ulcer Findings: Nonobstructive bowel gas pattern. Transpedicular lumbar fusion L5-S1 Right bipolar hemiarthroplasty Moderate narrowing left hip joint No free air Impression: Nonobstructive bowel gas pattern
== END | disposition home or self-care (01) ==
PROVIDERS: PCP Family Medicine; Referring Provider Specialist; Visit Provider Specialist
DX: R10.9 Unspecified abdominal pain (principal)
CPT/HCPCS: 74018

== ENCOUNTER 2024-10-06 00:27 | Emergency (ER) | payer MEDICARE, BC, SELFPAY ==
[2024-10-06 00:28] VITALS: PULSE 83; RESP 18; O2SAT 96
[2024-10-06 00:47] VITALS: BP 147/81; PULSE 90; RESP 16; TEMP 36.6; O2SAT 94
[2024-10-06 00:54] VITALS: O2SAT 96
--- NOTE | 2024-10-06 00:58 | PD.EDABDPN ---
ED Abdominal Pain RME/HPI General Chief Complaint: Abdominal Pain Stated complaint: ABD PAIN Time seen by provider: 10/06/24 00:58 Arrival date/time: 10/06/24 00:27 79-year-old female well-known to the emergency department reports with complaints of persistent chronic abdominal pain. Patient reports having an appointment this afternoon with GI but is unable to tolerate the abdominal pain. She denies fever chills nausea vomiting diarrhea constipation blood or mucus in stools dysuria urinary urgency frequency or hematuria. Patient states that she has been taking CBD Gummies which seems to relax her but does not resolve the pain. Limitations: no limitations Related Data Home Medications ?Medication ?Instructions ?Recorded ?Confirmed Bifidobacterium infantis 4 mg 4 mg PO DAILY 06/27/23 06/11/24 capsule (Align) acetaminophen 500 mg tablet 500 mg PO PRN PRN Pain 06/27/23 10/28/23 cholecalciferol (vitamin D3) 25 25 mcg PO 1XD 06/27/23 10/28/23 mcg (1,000 unit) tablet (Vitamin D3) levothyroxine 50 mcg tablet 50 mcg PO DAILY 06/27/23 06/11/24 metformin 500 mg tablet 500 mg PO DAILY 06/27/23 06/11/24 duloxetine 60 mg capsule,delayed 60 mg PO QDAY 08/23/23 06/11/24 release alprazolam 0.5 mg tablet 0.5 mg PO BID PRN Anxiety 10/28/23 06/11/24 benazepril 20 mg tablet 20 mg PO QDAY 10/28/23 06/11/24 loperamide 2 mg capsule 2 mg PO QDAY 10/28/23 10/28/23 pantoprazole 40 mg tablet,delayed 40 mg PO QDAY 10/28/23 06/11/24 release apixaban 5 mg tablet (Eliquis) 5 mg PO QDAY 06/11/24 06/11/24 Previous Rx's ?Medication ?Instructions ?Recorded famotidine 20 mg tablet 20 mg PO BID #20 tabs 11/01/23 ondansetron 4 mg disintegrating 4 mg PO Q8H PRN nausea and 02/22/24 tablet vomiting #30 tabs sucralfate 100 mg/mL oral 5 ml PO QID #420 mL 04/10/24 suspension (Carafate) acetaminophen 300 mg-codeine 30 mg 2 tab PO TID PRN pain #20 tabs 07/02/24 tablet cefdinir 300 mg capsule 300 mg PO BID #14 caps 07/02/24 lidocaine HCl 2 % mucosal solution 5 ml PO TIDPC PRN dyspepsia #300 mL 07/02/24 (Lidocaine Viscous) sucralfate 100 mg/mL oral 10 ml PO TID #500 mL 07/02/24 suspension (Carafate) Allergies Allergy/AdvReac Type Severity Reaction Status Date / Time amoxicillin (From Augmentin) Allergy Severe Hives Verified 10/06/24 00:28 aspirin Allergy Severe Abdominal Verified 10/06/24 00:28 Pain ciprofloxacin (From Cipro) Allergy Severe Gastrointestinal Verified 10/06/24 00:28 Upset clavulanic acid (From Allergy Severe Hives Verified 10/06/24 00:28 Augmentin) codeine Allergy Severe Nausea Verified 10/06/24 00:28 fluconazole Allergy Severe Rash Verified 10/06/24 00:28 gabapentin Allergy Severe Abdominal Verified 10/06/24 00:28 Pain ketorolac (From Toradol) Allergy Severe Abdominal Verified 10/06/24 00:28 Pain nalbuphine Allergy Severe Abdominal Verified 10/06/24 00:28 Pain Sulfa (Sulfonamide Allergy Severe Hives Verified 10/06/24 00:28 Antibiotics) tizanidine Allergy Severe Rash Verified 10/06/24 00:28 tramadol Allergy Severe Rash Verified 10/06/24 00:28 Review of Systems Constitutional Constitutional: Denies chills, Denies fever(s) and Denies headache(s) ENT Ears, Nose, Mouth, and Throat: Denies headache(s) and Denies vertigo Cardiovascular Cardiovascular: Denies chest pain and Denies dyspnea Respiratory Respiratory: Denies cough and Denies dyspnea Gastrointestinal Gastrointestinal: Reports abdominal pain, Denies constipation, Denies diarrhea, Denies melena and Denies vomiting Genitourinary Genitourinary: Denies difficulty voiding and Denies dysuria Integumentary/Breasts Skin/Breast: Denies unusual bruising and Denies wounds Neurologic Neurologic: Denies headache(s) and Denies vertigo Past Medical History Past Medical History NEUROLOGIC: Negative Neurological Disorders or Seizures CARDIAC: Positive Cardiac Disorders, Cardiac Arrhythmia, Atrial Fibrillation, Hypercholesterolemia and Hypertension; Negative Congestive Heart Failure RESPIRATORY: Positive Asthma, Pneumonia and Sleep Apnea; Negative Chronic Obstructive Pulmonary Disease (COPD) GASTROINTESTINAL: Positive Gastrointestinal Bleed, Colitis, Ulcerative Colitis, Diverticulitis, Diverticulosis, Irritable Bowel, Obstructive Bowel, Hemorrhoids and Obesity GENITOURINARY: Negative Renal Disease ENT: Positive Cataracts and Ear Infection ENDOCRINE: Positive Hypothyroidism; Negative Diabetes Mellitus Type 1 or Diabetes Mellitus Type 2 HEMATOLOGIC: Negative Sickle Cell Disease PSYCHO/SOCIAL: Positive Anxiety OTHER HISTORY: Positive Falls, Blood Transfusions, Anesthesia Reactions, Chicken Pox, Mumps and Clostridium Difficile; Negative Cancer Family History FAMILY HISTORY: Positive Family Cardiac Disorders; Negative Family Respiratory Disorders Surgical History SURGICAL: Positive Cardiac Surgery (cardiac ablation), Thyroidectomy, Joint Replacement, Hysterectomy and Section Social History SMOKING STATUS: Never smoker SUBSTANCE USE: does not use ED Exam General Limitations: Present no limitations General appearance: Present alert and in no apparent distress Eye Eye exam: Present normal appearance, PERRL and EOMI Chest Chest inspection: Present normal inspection and symmetric chest wall rise Respiratory Respiratory exam: Present normal lung sounds bilaterally Cardiovascular Cardiovascular exam: Present regular rate, normal rhythm and normal heart sounds Abdominal Exam Abdominal exam: Present soft and normal bowel sounds Extremities Exam Extremities exam: Present normal inspection and full ROM Back Exam Back exam: Present normal inspection and full ROM Neurological Exam Neurological exam: Present alert, oriented X3 and CN II-XII intact Psychiatric Psychiatric exam: Present normal affect and normal mood Skin Skin exam: Present warm, dry, intact and normal color Course Course Course Narrative: 79-year-old female well-known to the emergency department for chronic abdominal pain. Patient does have an appointment with GI this afternoon but is reporting some abdominal pain she is stable nontoxic-appearing with stable vital signs afebrile patient has had extensive GI testing over the last month and therefore additional test is not warranted at this time. Patient is given a GI cocktail she is reassured and advised to follow-up with GI. Patient verbalized understand Quality Measures none Vital Signs Vital signs: Vital Signs Temperature 97.9 F 10/06/24 00:47 Pulse Rate 90 10/06/24 00:47 Respiratory Rate 16 10/06/24 00:47 Blood Pressure 147/81 H 10/06/24 00:47 Pulse Oximetry (%) 94 L 10/06/24 00:47 Abdominal Pain MDM Patient data External records reviewed:: None Clinical information provided by:: patient Social determinants that could affect healthcare access:: none Patient has the following chronic illnesses:: none How is presenting disease/condition affected by chronic disease/condition?: no chronic disease Evaluation data The following diagnostics were reviewed and interpreted by me:: other (specify) (none) Lab and/or radiology exams considered but not ordered:: none Interpretation Summary: n/a Medications / Prescriptions Medications or Prescriptions considered but not ordered:: none Medication administrations:: GI cocktail Consultations Consultation(s) initiated? (list below): No Diagnosis Differential diagnosis abdominal pain: abdominal pain, constipation and gastroenteritis Most likely diagnosis given after review of the tests above:: Chronic abdominal pain Admission Indicated Admission indicated?: not indicated Admission Request Was there a request for admission?: No Disposition Plan Disposition Plan: Discharge Discharge Attestation Discharge Attestation: The patient and all family members were given an opportunity to ask questions and understood the discharge instructions. Discharge instructions specifically effects, indications for sooner follow up or return to the emergency department, and the expected course of current diagnosis. Patient condition: Stable Discharge Plan Plan Patient Disposition: HOME (Self Care) Prescriptions/Referrals Prescriptions/Med Rec: No Action metformin 500 mg Tablet 500 mg PO DAILY acetaminophen 500 mg Tablet 500 mg PO PRN MDD 4 PRN (Reason: Pain) levothyroxine 50 mcg Tablet 50 mcg PO DAILY cholecalciferol (vitamin D3) [Vitamin D3] 25 mcg (1,000 unit) Tablet 25 mcg PO 1XD Align 4 mg Capsule 4 mg PO DAILY duloxetine 60 mg capsule,delayed release(DR/EC) 60 mg PO QDAY Rx Instructions: Takes 80mg in the afternoon loperamide 2 mg capsule 2 mg PO QDAY alprazolam 0.5 mg tablet 0.5 mg PO BID PRN (Reason: Anxiety) Patient Comments: TAKE 1 TABLET BY MOUTH THREE TIMES DAILY NEEDED FOR ANXIETY pantoprazole 40 mg tablet,delayed release (DR/EC) 40 mg PO QDAY Patient Comments: TAKE 1 TABLET BY MOUTH DAILY benazepril 20 mg tablet 20 mg PO QDAY famotidine 20 mg tablet 20 mg PO BID Qty: 20 0RF ondansetron 4 mg tablet,disintegrating 4 mg PO Q8H PRN (Reason: nausea and vomiting) Qty: 30 0RF lidocaine HCl [Lidocaine Viscous] 2 % solution 5 ml PO TIDPC MDD 15 mL PRN (Reason: dyspepsia) Qty: 300 0RF sucralfate [Carafate] 100 mg/mL suspension 10 ml PO TID Qty: 500 0RF Rx Instructions: swish in mouth and swallow; use after food/drink acetaminophen-codeine 300-30 mg tablet 2 tab PO TID MDD 6 PRN (Reason: pain) Qty: 20 0RF cefdinir 300 mg capsule 300 mg PO BID Qty: 14 0RF sucralfate [Carafate] 100 mg/mL suspension 5 ml PO QID Qty: 420 0RF Rx Instructions: swish in mouth and swallow; use after food/drink Eliquis 5 mg Tablet 5 mg PO QDAY Problem List Clinical Impression: Abdominal pain, chronic, epigastric Patient/Caregiver Discharge Instructions Education Materials: [facility] [employer] Print Language: Lao Stand Alone Forms: [employer] Award Info., Patient Portal Info Letter
[2024-10-06] MEDS: MG HYD/AL HYD/SIME (Maalox Reg) SUSP 30 ML UDC PO (01:20)
[2024-10-06] MEDS: LIDOCAINE VISCOUS 2% 15 ML UDC PO (01:20)
[2024-10-06 01:39] VITALS: RESP 18
== END 2024-10-06 01:39 | disposition home or self-care (01) ==
LOC: SERX 05:14
PROVIDERS: Emergency Provider Emergency Medicine; PCP Family Medicine
DX: R10.13 Epigastric pain (principal)
CPT/HCPCS: 99282; J3490; A9270

== ENCOUNTER 2024-10-08 09:55 | Emergency (ER) | payer MEDICARE, BC, SELFPAY ==
[2024-10-08 10:23] VITALS: BP 165/87; PULSE 89; RESP 20; TEMP 36.7; O2SAT 94; BMI 32.2
--- NOTE | 2024-10-08 10:37 | PD.EDRME ---
Rapid Medical Screening Exam RME Arrival date/time: 10/08/24 09:55 79 yo f present to ED for c/o ongoing abd pain, report feeling constipation I have greeted and performed a focused initial assessment of this patient. A comprehensive ED assessment and evaluation of the patient, analysis of all test results, and completion of the medical decision making process will be conducted by additional ED providers. Chief Complaint: Abdominal Pain Time Seen by Provider: 10/08/24 09:57 Vital signs: Vital Signs Temperature 98.1 F 10/08/24 10:23 Pulse Rate 89 10/08/24 10:23 Respiratory Rate 20 10/08/24 10:23 Blood Pressure 165/87 H 10/08/24 10:23 Pulse Oximetry (%) 94 L 10/08/24 10:23 Oxygen Delivery Method Room Air 10/08/24 10:23
--- NOTE | 2024-10-08 11:10 | PC.NURSE ---
CARTER STATES SHE DOESN'T WANT TO WAIT ANY MORE, AND WALKED OUT
== END 2024-10-08 11:11 | disposition left against medical advice (07) ==
LOC: SERX 10:40
PROVIDERS: Emergency Provider Emergency Medicine; PCP Family Medicine
DX: R10.9 Unspecified abdominal pain (principal); Z53.29 Procedure and treatment not carried out because of patient's decision for other reasons
CPT/HCPCS: 99281

== ENCOUNTER 2024-10-08 13:43 | Emergency (ER) | payer MEDICARE, BC, SELFPAY ==
[2024-10-08 13:59] VITALS: BP 150/73; PULSE 78; RESP 20; TEMP 36.5; O2SAT 95; BMI 32.2
--- NOTE | 2024-10-08 14:06 | XR_ITS ---
Examination: Abdomen AP single view Technique: AP portable supine abdomen, single view Exam date and time: 10/08/2024, 2:33 PM INDICATION: Constipation. COMPARISON: 10/05/2024. FINDINGS: Multiple air-filled loops of small and large bowel. No evidence of bowel dilatation. Scattered fecal material in the colon. No evidence of abnormal masses. Stable orthopedic hardware. IMPRESSION: Nonobstructive nondilated bowel gas pattern. Scattered fecal material in the colon.
--- NOTE | 2024-10-08 14:06 | PD.EDRME ---
Rapid Medical Screening Exam RME Arrival date/time: 10/08/24 13:43 79 yo f present to Ed for c/o constipation/chronic pain I have greeted and performed a focused initial assessment of this patient. A comprehensive ED assessment and evaluation of the patient, analysis of all test results, and completion of the medical decision making process will be conducted by additional ED providers. Chief Complaint: Abdominal Pain Time Seen by Provider: 10/08/24 13:52 Vital signs: Vital Signs Temperature 97.7 F 10/08/24 13:59 Pulse Rate 78 10/08/24 13:59 Respiratory Rate 20 10/08/24 13:59 Blood Pressure 150/73 H 10/08/24 13:59 Pulse Oximetry (%) 95 10/08/24 13:59 Oxygen Delivery Method Room Air 10/08/24 13:59
--- NOTE | 2024-10-08 18:36 | PD.EDABDPN ---
ED Abdominal Pain RME/HPI General Chief Complaint: Abdominal Pain Stated complaint: ABD PAIN Time seen by provider: 10/08/24 13:52 Arrival date/time: 10/08/24 13:43 RME / HPI RME / HPI narrative: 10/08/24 13:43 79 yo f present to Ed for c/o constipation/chronic pain I have greeted and performed a focused initial assessment of this patient. A comprehensive ED assessment and evaluation of the patient, analysis of all test results, and completion of the medical decision making process will be conducted by additional ED providers. DR. SUKUMAR HORN ED EVALUATION: 18:36 patient is a 79-year-old female who presented the emergency department early this morning with chief complaint of some constipation. Patient states her ulcer started hurting and she had to go home and think so she left before being seen. Patient re-presented this afternoon with same constipation complaint. Patient states she saw Dr. Osuna recently and had an abdominal plain film performed. She states this films showed a buildup of stool although she had no clinical constipation. She took some medicine she states intended to help her have a bowel movement. She states she had a large amount of diarrhea this morning but did not know whether the medicine was working and also came to the ER to find out. Patient was also having some abdominal pain which resolved spontaneously. Patient received an enema and had a bowel movement here this evening. She currently has no medical complaints. Related Data Home Medications ?Medication ?Instructions ?Recorded ?Confirmed Bifidobacterium infantis 4 mg 4 mg PO DAILY 06/27/23 06/11/24 capsule (Align) acetaminophen 500 mg tablet 500 mg PO PRN PRN Pain 06/27/23 10/28/23 cholecalciferol (vitamin D3) 25 25 mcg PO 1XD 06/27/23 10/28/23 mcg (1,000 unit) tablet (Vitamin D3) levothyroxine 50 mcg tablet 50 mcg PO DAILY 06/27/23 06/11/24 metformin 500 mg tablet 500 mg PO DAILY 06/27/23 06/11/24 duloxetine 60 mg capsule,delayed 60 mg PO QDAY 08/23/23 06/11/24 release alprazolam 0.5 mg tablet 0.5 mg PO BID PRN Anxiety 10/28/23 06/11/24 benazepril 20 mg tablet 20 mg PO QDAY 10/28/23 06/11/24 loperamide 2 mg capsule 2 mg PO QDAY 10/28/23 10/28/23 pantoprazole 40 mg tablet,delayed 40 mg PO QDAY 10/28/23 06/11/24 release apixaban 5 mg tablet (Eliquis) 5 mg PO QDAY 06/11/24 06/11/24 Previous Rx's ?Medication ?Instructions ?Recorded famotidine 20 mg tablet 20 mg PO BID #20 tabs 11/01/23 ondansetron 4 mg disintegrating 4 mg PO Q8H PRN nausea and 02/22/24 tablet vomiting #30 tabs sucralfate 100 mg/mL oral 5 ml PO QID #420 mL 04/10/24 suspension (Carafate) acetaminophen 300 mg-codeine 30 mg 2 tab PO TID PRN pain #20 tabs 07/02/24 tablet cefdinir 300 mg capsule 300 mg PO BID #14 caps 07/02/24 lidocaine HCl 2 % mucosal solution 5 ml PO TIDPC PRN dyspepsia #300 mL 07/02/24 (Lidocaine Viscous) sucralfate 100 mg/mL oral 10 ml PO TID #500 mL 07/02/24 suspension (Carafate) Allergies Allergy/AdvReac Type Severity Reaction Status Date / Time amoxicillin (From Augmentin) Allergy Severe Hives Verified 10/08/24 09:58 aspirin Allergy Severe Abdominal Verified 10/08/24 09:58 Pain ciprofloxacin (From Cipro) Allergy Severe Gastrointestinal Verified 10/08/24 09:58 Upset clavulanic acid (From Allergy Severe Hives Verified 10/08/24 09:58 Augmentin) codeine Allergy Severe Nausea Verified 10/08/24 09:58 fluconazole Allergy Severe Rash Verified 10/08/24 09:58 gabapentin Allergy Severe Abdominal Verified 10/08/24 09:58 Pain ketorolac (From Toradol) Allergy Severe Abdominal Verified 10/08/24 09:58 Pain nalbuphine Allergy Severe Abdominal Verified 10/08/24 09:58 Pain Sulfa (Sulfonamide Allergy Severe Hives Verified 10/08/24 09:58 Antibiotics) tizanidine Allergy Severe Rash Verified 10/08/24 09:58 tramadol Allergy Severe Rash Verified 10/08/24 09:58 Review of Systems Review of Systems Systems Reviewed: All systems reviewed, normal except as documented Narrative Review of Systems: GEN: No fever, no chills, no weight loss EYES: No discharge, no visual changes, no pain HEENT: No ear pain, no congestion, no sore throat PULM: No shortness of breath, no cough, no congestion CV: No chest pain, no dyspnea on exertion, no palpitations GI: No nausea, no vomiting, no diarrhea, + abdominal pain, + constipation : No frequency, no urgency and no dysuria MUSC/SKEL: No joint pain, no back pain SKIN: No rash PSYCH: No hallucinations, no depression HEME/LYMPH: No easy bleeding or bruising tendencies NEURO: No weakness, no headache Past Medical History Past Medical History NEUROLOGIC: Negative Neurological Disorders or Seizures CARDIAC: Positive Cardiac Disorders, Cardiac Arrhythmia, Atrial Fibrillation (on eliquis), Hypercholesterolemia and Hypertension; Negative Congestive Heart Failure RESPIRATORY: Positive Asthma, Pneumonia and Sleep Apnea; Negative Chronic Obstructive Pulmonary Disease (COPD) GASTROINTESTINAL: Positive Gastrointestinal Disorders, Gastrointestinal Bleed, Colitis, Ulcerative Colitis, Diverticulitis, Diverticulosis, Ulcer, Irritable Bowel, Obstructive Bowel, Hemorrhoids and Obesity GENITOURINARY: Positive Kidney Stones (Pt states stone present in kidney); Negative Genitourinary Disorders or Renal Disease REPRODUCTIVE: Positive Previous Pregnancies MUSCULOSKELETAL: Positive Musculoskeletal Disorders and Arthritis ENT: Positive Cataracts and Ear Infection ENDOCRINE: Positive Diabetes Mellitus Type 2 and Hypothyroidism; Negative Diabetes Mellitus Type 1 HEMATOLOGIC: Negative Blood Disorders or Sickle Cell Disease PSYCHO/SOCIAL: Positive Anxiety OTHER HISTORY: Positive Falls, Blood Transfusions, Anesthesia Reactions (pt states hallucination for 2-3 days after knee replacement), Chicken Pox, Mumps and Clostridium Difficile; Negative Cancer Family History FAMILY HISTORY: Positive Family Cardiac Disorders; Negative Family Respiratory Disorders Surgical History SURGICAL: Positive Cardiac Surgery (ablasion), Endocrine Surgery, Thyroidectomy, Abdominal Surgery, Joint Replacement (R hip, R knee, and L ankle replacements), Knee Sx, Hip Sx, Hysterectomy and Section Social History SMOKING STATUS: Never smoker SUBSTANCE USE: does not use ALCOHOL: Never ED Exam Narrative Physical exam: GENERAL APPEARANCE:? alert and oriented x 4, well-developed, well-nourished, no acute distress. Patient is smiling and sitting comfortably in exam room. Vital signs are stable and normal. HEENT: Normocephalic, atraumatic; pupils equal, round, reactive to light; EOMI; mucous membranes pink, moist; oropharynx clear NECK: Supple LUNGS: CTABL; no wheezes, no rales, no rhonchi HEART: Regular rate, regular rhythm; normal S1, S2; no murmurs ABDOMEN: non distended; normal BS;? soft, no tenderness, no guarding, no rebound, no rigidity; no masses, no organomegaly, no hernia?? BACK:? no CVA tenderness EXTREMITIES:? atraumatic; no edema NEUROLOGIC: awake; alert and oriented x4; cranial nerves II-XII grossly intact; no focal sensory or motor deficits PSYCHIATRIC:? appropriate mood and affect SKIN: warm, dry, normal color; no rashes Course Quality Measures none Orders Category Date Time Status Soap Suds [Enema Administration] ONCE Care 10/08/24 14:55 Completed KUB [XR abdomen 1V] Stat Exams 10/08/24 14:06 Completed Vital Signs Vital signs: Vital Signs Temperature 97.7 F 10/08/24 13:59 Pulse Rate 78 10/08/24 13:59 Respiratory Rate 20 10/08/24 13:59 Blood Pressure 150/73 H 10/08/24 13:59 Pulse Oximetry (%) 95 10/08/24 13:59 Oxygen Delivery Method Room Air 10/08/24 13:59 Abdominal Pain MDM MDM Narrative MDM Narrative:: I will discharge this patient with chief complaint of constipation. No meds. She needs to follow-up with her PMD and with Dr. Osuna. Patient data External records reviewed:: [facility] previous records (Reviewed last ED visit dated 10/06/24, discharged with the following: Abdominal pain, chronic, epigastric) Clinical information provided by:: patient Social determinants that could affect healthcare access:: none Patient has the following chronic illnesses:: The patient has a history of atrial fibrillation and an ablation procedure. She is currently on anticoagulation therapy with Eliquis (apixaban), prescribed by Dr. Reza. She also notes that she is under the regular care of Dr. Daley at [facility] in [place]. How is presenting disease/condition affected by chronic disease/condition?: uneffected by Evaluation data The following diagnostics were reviewed and interpreted by me:: radiology exam(s) Lab and/or radiology exams considered but not ordered:: none Interpretation Summary: Procedure(s): XR abdomen 1V Accession Number(s): [id number] cc: Alber Lin MD; Rowdy Cordero PA-C; Tyrone Langford MD~ Examination: Abdomen AP single view Technique: AP portable supine abdomen, single view Exam date and time: 10/08/2024, 2:33 PM INDICATION: Constipation. COMPARISON: 10/05/2024. FINDINGS: Multiple air-filled loops of small and large bowel. No evidence of bowel dilatation. Scattered fecal material in the colon. No evidence of abnormal masses. Stable orthopedic hardware. IMPRESSION: Nonobstructive nondilated bowel gas pattern. Scattered fecal material in the colon. Dictated By: Alber Lin MD Medications / Prescriptions Medications or Prescriptions considered but not ordered:: none Medication administrations:: none Consultations Consultation(s) initiated? (list below): No Diagnosis Differential diagnosis abdominal pain: abdominal pain, constipation and small bowel obstruction Most likely diagnosis given after review of the tests above:: Abdominal pain Constipation Admission Indicated Admission indicated?: not indicated Admission Request Was there a request for admission?: No Disposition Plan Disposition Plan: Discharge Discharge Attestation Discharge Attestation: The patient and all family members were given an opportunity to ask questions and understood the discharge instructions. Discharge instructions specifically effects, indications for sooner follow up or return to the emergency department, and the expected course of current diagnosis. Patient condition: Stable Discharge Plan Plan Patient Disposition: HOME (Self Care) Disposition Comment: Stable for discharge home Patient condition on transfer: Stable Prescriptions/Referrals Prescriptions/Med Rec: No Action metformin 500 mg Tablet 500 mg PO DAILY acetaminophen 500 mg Tablet 500 mg PO PRN MDD 4 PRN (Reason: Pain) levothyroxine 50 mcg Tablet 50 mcg PO DAILY cholecalciferol (vitamin D3) [Vitamin D3] 25 mcg (1,000 unit) Tablet 25 mcg PO 1XD Align 4 mg Capsule 4 mg PO DAILY duloxetine 60 mg capsule,delayed release(DR/EC) 60 mg PO QDAY Rx Instructions: Takes 80mg in the afternoon loperamide 2 mg capsule 2 mg PO QDAY alprazolam 0.5 mg tablet 0.5 mg PO BID PRN (Reason: Anxiety) Patient Comments: TAKE 1 TABLET BY MOUTH THREE TIMES DAILY NEEDED FOR ANXIETY pantoprazole 40 mg tablet,delayed release (DR/EC) 40 mg PO QDAY Patient Comments: TAKE 1 TABLET BY MOUTH DAILY benazepril 20 mg tablet 20 mg PO QDAY famotidine 20 mg tablet 20 mg PO BID Qty: 20 0RF ondansetron 4 mg tablet,disintegrating 4 mg PO Q8H PRN (Reason: nausea and vomiting) Qty: 30 0RF lidocaine HCl [Lidocaine Viscous] 2 % solution 5 ml PO TIDPC MDD 15 mL PRN (Reason: dyspepsia) Qty: 300 0RF sucralfate [Carafate] 100 mg/mL suspension 10 ml PO TID Qty: 500 0RF Rx Instructions: swish in mouth and swallow; use after food/drink acetaminophen-codeine 300-30 mg tablet 2 tab PO TID MDD 6 PRN (Reason: pain) Qty: 20 0RF cefdinir 300 mg capsule 300 mg PO BID Qty: 14 0RF sucralfate [Carafate] 100 mg/mL suspension 5 ml PO QID Qty: 420 0RF Rx Instructions: swish in mouth and swallow; use after food/drink Eliquis 5 mg Tablet 5 mg PO QDAY Referrals: Tyrone Langford MD [Primary Care Provider] - In 1 week Problem List Clinical Impression: Abdominal pain, Constipation Patient/Caregiver Discharge Instructions Discharge Activity: activity as tolerated Education Materials: Abdominal Pain, ED Constipation (Adult) Additional Instructions: Return to the emergency department for any worsening or any further medical problems. Otherwise you should follow-up with your primary care doctor within the next several days You can also follow-up with Dr. Osuna sometime in the next few days. Print Language: Syriac Stand Alone Forms: [facility] Award Info., Patient Portal Info Letter
[2024-10-08 19:00] VITALS: BP 189/71; PULSE 60; RESP 19; TEMP 36.8; O2SAT 96
== END 2024-10-08 19:00 | disposition home or self-care (01) ==
PROVIDERS: Emergency Provider Emergency Medicine; PCP Family Medicine
DX: K59.00 Constipation, unspecified (principal)
CPT/HCPCS: 74018; 99283

== ENCOUNTER 2024-10-16 00:07 | Emergency (ER) | payer MEDICARE, BC, SELFPAY ==
[2024-10-16 00:13] VITALS: BP 159/80; PULSE 106; RESP 20; TEMP 37.2; O2SAT 95; BMI 34.3
--- NOTE | 2024-10-16 00:36 | PD.EDABDPN ---
ED Abdominal Pain RME/HPI General Chief Complaint: Abdominal Pain Stated complaint: ABD PAIN Time seen by provider: 10/16/24 00:21 Arrival date/time: 10/16/24 00:07 79-year-old female with a history of duodenal ulcers presents with complaint of abdominal pain. Patient states that she has eaten something today that she figured would upset her ulcer she typically takes a GI cocktail but she is out of her prescription and she is waiting to fill it tomorrow. Patient states that there is no other issues that she has she is simply requesting a GI cocktail and that she can be sent home. She denies vomiting diarrhea blood or mucus in stool shortness of breath chest pain weakness or fatigue Limitations: no limitations Related Data Home Medications ?Medication ?Instructions ?Recorded ?Confirmed Bifidobacterium infantis 4 mg 4 mg PO DAILY 06/27/23 06/11/24 capsule (Align) acetaminophen 500 mg tablet 500 mg PO PRN PRN Pain 06/27/23 10/28/23 cholecalciferol (vitamin D3) 25 25 mcg PO 1XD 06/27/23 10/28/23 mcg (1,000 unit) tablet (Vitamin D3) levothyroxine 50 mcg tablet 50 mcg PO DAILY 06/27/23 06/11/24 metformin 500 mg tablet 500 mg PO DAILY 06/27/23 06/11/24 duloxetine 60 mg capsule,delayed 60 mg PO QDAY 08/23/23 06/11/24 release alprazolam 0.5 mg tablet 0.5 mg PO BID PRN Anxiety 10/28/23 06/11/24 benazepril 20 mg tablet 20 mg PO QDAY 10/28/23 06/11/24 loperamide 2 mg capsule 2 mg PO QDAY 10/28/23 10/28/23 pantoprazole 40 mg tablet,delayed 40 mg PO QDAY 10/28/23 06/11/24 release apixaban 5 mg tablet (Eliquis) 5 mg PO QDAY 06/11/24 06/11/24 Previous Rx's ?Medication ?Instructions ?Recorded famotidine 20 mg tablet 20 mg PO BID #20 tabs 11/01/23 ondansetron 4 mg disintegrating 4 mg PO Q8H PRN nausea and 02/22/24 tablet vomiting #30 tabs sucralfate 100 mg/mL oral 5 ml PO QID #420 mL 04/10/24 suspension (Carafate) acetaminophen 300 mg-codeine 30 mg 2 tab PO TID PRN pain #20 tabs 07/02/24 tablet cefdinir 300 mg capsule 300 mg PO BID #14 caps 07/02/24 lidocaine HCl 2 % mucosal solution 5 ml PO TIDPC PRN dyspepsia #300 mL 07/02/24 (Lidocaine Viscous) sucralfate 100 mg/mL oral 10 ml PO TID #500 mL 07/02/24 suspension (Carafate) Allergies Allergy/AdvReac Type Severity Reaction Status Date / Time amoxicillin (From Augmentin) Allergy Severe Hives Verified 10/16/24 00:11 aspirin Allergy Severe Abdominal Verified 10/16/24 00:11 Pain ciprofloxacin (From Cipro) Allergy Severe Gastrointestinal Verified 10/16/24 00:11 Upset clavulanic acid (From Allergy Severe Hives Verified 10/16/24 00:11 Augmentin) codeine Allergy Severe Nausea Verified 10/16/24 00:11 fluconazole Allergy Severe Rash Verified 10/16/24 00:11 gabapentin Allergy Severe Abdominal Verified 10/16/24 00:11 Pain ketorolac (From Toradol) Allergy Severe Abdominal Verified 10/16/24 00:11 Pain nalbuphine Allergy Severe Abdominal Verified 10/16/24 00:11 Pain Sulfa (Sulfonamide Allergy Severe Hives Verified 10/16/24 00:11 Antibiotics) tizanidine Allergy Severe Rash Verified 10/16/24 00:11 tramadol Allergy Severe Rash Verified 10/16/24 00:11 Review of Systems Constitutional Constitutional: Denies chills and Denies fever(s) ENT Ears, Nose, Mouth, and Throat: Denies sore throat, Denies throat swelling and Denies vertigo Cardiovascular Cardiovascular: Denies chest pain and Denies dyspnea Respiratory Respiratory: Denies cough and Denies dyspnea Gastrointestinal Gastrointestinal: Reports abdominal pain, Denies heartburn, Denies loose stools, Denies melena and Reports other (History of duodenal ulcer) Genitourinary Genitourinary: Denies difficulty voiding and Denies dysuria Musculoskeletal Musculoskeletal: Denies arthralgias and Denies back pain Integumentary/Breasts Skin/Breast: Denies rash and Denies skin pain Neurologic Neurologic: Denies radicular pain and Denies vertigo Psychiatric Psychiatric: Denies irritability and Denies mood swings Hematologic/Lymphatic Hematologic/Lymphatic: Denies easy bleeding and Denies easy bruising Allergic/Immunologic Allergic/Immunologic: Denies throat swelling Past Medical History Past Medical History NEUROLOGIC: Negative Neurological Disorders or Seizures CARDIAC: Positive Cardiac Disorders, Cardiac Arrhythmia, Atrial Fibrillation (on eliquis), Hypercholesterolemia and Hypertension; Negative Congestive Heart Failure RESPIRATORY: Positive Asthma, Pneumonia and Sleep Apnea; Negative Chronic Obstructive Pulmonary Disease (COPD) GASTROINTESTINAL: Positive Gastrointestinal Disorders, Gastrointestinal Bleed, Colitis, Ulcerative Colitis, Diverticulitis, Diverticulosis, Ulcer, Irritable Bowel, Obstructive Bowel, Hemorrhoids and Obesity GENITOURINARY: Positive Kidney Stones (Pt states stone present in kidney); Negative Genitourinary Disorders or Renal Disease REPRODUCTIVE: Positive Previous Pregnancies MUSCULOSKELETAL: Positive Musculoskeletal Disorders and Arthritis ENT: Positive Cataracts and Ear Infection ENDOCRINE: Positive Diabetes Mellitus Type 2 and Hypothyroidism; Negative Diabetes Mellitus Type 1 HEMATOLOGIC: Negative Blood Disorders or Sickle Cell Disease PSYCHO/SOCIAL: Positive Anxiety OTHER HISTORY: Positive Falls, Blood Transfusions, Anesthesia Reactions (pt states hallucination for 2-3 days after knee replacement), Chicken Pox, Mumps and Clostridium Difficile; Negative Cancer Family History FAMILY HISTORY: Positive Family Cardiac Disorders; Negative Family Respiratory Disorders Surgical History SURGICAL: Positive Cardiac Surgery (ablasion), Endocrine Surgery, Thyroidectomy, Abdominal Surgery, Joint Replacement (R hip, R knee, and L ankle replacements), Hysterectomy and Section Social History SMOKING STATUS: Never smoker SUBSTANCE USE: does not use ED Exam General Limitations: Present no limitations General appearance: Present alert and in no apparent distress Chest Chest inspection: Present normal inspection and symmetric chest wall rise Respiratory Respiratory exam: Present normal lung sounds bilaterally Cardiovascular Cardiovascular exam: Present regular rate, normal rhythm and normal heart sounds Abdominal Exam Abdominal exam: Present soft, tenderness and normal bowel sounds; Absent guarding, rebound, ascites, mass or bruit Abdominal tenderness: Present RUQ Extremities Exam Extremities exam: Present normal inspection and full ROM Back Exam Back exam: Present normal inspection and full ROM Neurological Exam Neurological exam: Present alert, oriented X3 and CN II-XII intact Psychiatric Psychiatric exam: Present normal affect and normal mood Skin Skin exam: Present warm, dry, intact and normal color Course Course Course Narrative: 79-year-old female who reports history of duodenal ulcers comes to the emergency department requesting a GI cocktail. Patient is currently refusing an abdominal workup citing it is the ulcer she typically has this pain when she eats fried foods which she has eaten today she denies shortness of breath or chest pain fever or chills. Patient received a GI cocktail she will be discharged home but advised that if symptoms should worsen she should return to the emergency department patient verbalized understanding she is stable nontoxic-appearing with stable vital signs Quality Measures none Orders Category Date Time Status Lidocaine 2% Viscous [Xylocaine 2% Viscous] Med 10/16/24 00:35 Once 15 ml PO X1 ONE mg Hyd/Al Hyd/Jennifer Susp [Maalox Susp] Med 10/16/24 00:35 Once 30 ml PO X1 ONE Vital Signs Vital signs: Vital Signs Temperature 98.9 F 10/16/24 00:13 Pulse Rate 106 H 10/16/24 00:13 Respiratory Rate 20 10/16/24 00:13 Blood Pressure 159/80 H 10/16/24 00:13 Pulse Oximetry (%) 95 10/16/24 00:13 Oxygen Delivery Method Room Air 10/16/24 00:13 Abdominal Pain MDM Patient data External records reviewed:: None Clinical information provided by:: patient Social determinants that could affect healthcare access:: none Patient has the following chronic illnesses:: Duodenal ulcer How is presenting disease/condition affected by chronic disease/condition?: caused by Evaluation data The following diagnostics were reviewed and interpreted by me:: other (specify) (None as patient declined any testing at this time) Lab and/or radiology exams considered but not ordered:: Abdominal CT, CBC, CMP, lipase, urine analysis Interpretation Summary: N/A Medications / Prescriptions Medications or Prescriptions considered but not ordered:: None Medication administrations:: Medication Administration History Al Hydrox/Mg Hydrox/Simethicone (Mg Hyd/Al Hyd/Jennifer (Maalox Reg) Susp 30 Ml Udc) 30 ml PO X1 ONE Stop: 10/16/24 00:36 Lidocaine HCl (Lidocaine Viscous 2% 15 Ml Udc) 15 ml PO X1 ONE Stop: 10/16/24 00:36 As above Consultations Consultation(s) initiated? (list below): No Diagnosis Differential diagnosis abdominal pain: abdominal pain, acute appendicitis, constipation and diverticulitis Most likely diagnosis given after review of the tests above:: Abdominal pain Admission Indicated Admission indicated?: not indicated Explain why admission is indicated or not indicated:: Mild condition Admission Request Was there a request for admission?: No Disposition Plan Disposition Plan: Discharge Discharge Attestation Discharge Attestation: The patient and all family members were given an opportunity to ask questions and understood the discharge instructions. Discharge instructions specifically effects, indications for sooner follow up or return to the emergency department, and the expected course of current diagnosis. Patient condition: Stable Discharge Plan Plan Patient Disposition: HOME (Self Care) Prescriptions/Referrals Prescriptions/Med Rec: No Action metformin 500 mg Tablet 500 mg PO DAILY acetaminophen 500 mg Tablet 500 mg PO PRN MDD 4 PRN (Reason: Pain) levothyroxine 50 mcg Tablet 50 mcg PO DAILY cholecalciferol (vitamin D3) [Vitamin D3] 25 mcg (1,000 unit) Tablet 25 mcg PO 1XD Align 4 mg Capsule 4 mg PO DAILY duloxetine 60 mg capsule,delayed release(DR/EC) 60 mg PO QDAY Rx Instructions: Takes 80mg in the afternoon loperamide 2 mg capsule 2 mg PO QDAY alprazolam 0.5 mg tablet 0.5 mg PO BID PRN (Reason: Anxiety) Patient Comments: TAKE 1 TABLET BY MOUTH THREE TIMES DAILY NEEDED FOR ANXIETY pantoprazole 40 mg tablet,delayed release (DR/EC) 40 mg PO QDAY Patient Comments: TAKE 1 TABLET BY MOUTH DAILY benazepril 20 mg tablet 20 mg PO QDAY famotidine 20 mg tablet 20 mg PO BID Qty: 20 0RF ondansetron 4 mg tablet,disintegrating 4 mg PO Q8H PRN (Reason: nausea and vomiting) Qty: 30 0RF lidocaine HCl [Lidocaine Viscous] 2 % solution 5 ml PO TIDPC MDD 15 mL PRN (Reason: dyspepsia) Qty: 300 0RF sucralfate [Carafate] 100 mg/mL suspension 10 ml PO TID Qty: 500 0RF Rx Instructions: swish in mouth and swallow; use after food/drink acetaminophen-codeine 300-30 mg tablet 2 tab PO TID MDD 6 PRN (Reason: pain) Qty: 20 0RF cefdinir 300 mg capsule 300 mg PO BID Qty: 14 0RF sucralfate [Carafate] 100 mg/mL suspension 5 ml PO QID Qty: 420 0RF Rx Instructions: swish in mouth and swallow; use after food/drink Eliquis 5 mg Tablet 5 mg PO QDAY Problem List Clinical Impression: Abdominal pain Patient/Caregiver Discharge Instructions Discharge Activity: activity as tolerated Education Materials: Abdominal Pain Additional Instructions: Follow-up with your primary care provider as needed and return to the emergency department if symptoms should worsen Print Language: Georgian Stand Alone Forms: [facility] Award Info., Patient Portal Info Letter
[2024-10-16] MEDS: MG HYD/AL HYD/SIME (Maalox Reg) SUSP 30 ML UDC PO (00:44)
[2024-10-16] MEDS: LIDOCAINE VISCOUS 2% 15 ML UDC PO (00:44)
== END 2024-10-16 01:10 | disposition home or self-care (01) ==
LOC: SERX 00:51
PROVIDERS: Emergency Provider Emergency Medicine; PCP Family Medicine
DX: R10.9 Unspecified abdominal pain (principal); Z87.11 Personal history of peptic ulcer disease
CPT/HCPCS: 99282; J3490; A9270

== ENCOUNTER 2024-10-23 11:06 | Emergency (ER) | payer MEDICARE, BC, SELFPAY ==
[2024-10-23 11:15] VITALS: BP 179/82; PULSE 93; RESP 18; TEMP 36.6; O2SAT 94; BMI 32.2
--- NOTE | 2024-10-23 11:22 | PD.EDRME ---
Rapid Medical Screening Exam RME Arrival date/time: 10/23/24 11:06 79-year-old female with a history of hypertension, hypothyroidism, type 2 diabetes presents to the emergency room with a chief complaint of lower abdominal cramping and diarrhea x 1 day I have greeted and performed a focused initial assessment of this patient. A comprehensive ED assessment and evaluation of the patient, analysis of all test results, and completion of the medical decision making process will be conducted by additional ED providers. Chief Complaint: Nausea/Vomiting/Diarrhea Time Seen by Provider: 10/23/24 11:12 Vital signs: Vital Signs Temperature 97.8 F 10/23/24 11:15 Pulse Rate 93 10/23/24 11:15 Respiratory Rate 18 10/23/24 11:15 Blood Pressure 179/82 H 10/23/24 11:15 Pulse Oximetry (%) 94 L 10/23/24 11:15 Oxygen Delivery Method Room Air 10/23/24 11:15 Vital signs reviewed by provider: Yes
[2024-10-23] MEDS: ACETAMINOPHEN 325 MG TABLET 650 MG PO (11:34)
[2024-10-23 11:50] LABS: Basophils % (Auto) 0 % (0-2.5); Eosinophils % (Auto) 0 % (0-10); Hematocrit 31.8 % (36.0-46.0); Hemoglobin 9.9 g/dL (12.0-16.0); Immature Granulocytes % (Auto) 0 % (0-0); Immature Granulocytes Auto 0.03 Thou/mm3 (0.00-0.00); Lymphocytes # (Auto) 2.2 Thou/mm3 (1.0-4.8); Lymphocytes % (Auto) 21 % (10-50); Mean Corpuscular HGB Conc 31.1 g/dl (31.0-37.0); Mean Corpuscular Hemoglobin 24.3 pg (25.0-35.0); Mean Corpuscular Volume 78 fL (80-100); Monocytes # (Auto) 0.7 Thou/mm3 (0.0-0.8); Monocytes % (Auto) 7 % (0-12); Neutrophils # (Auto) 7.5 Thou/mm3 (1.8-7.7); Neutrophils % (Auto) 71 % (37-80); Nucleated Red Blood Cell % 0 /100 WBC (0); Platelet Count 441 Thou/mm3 (140-440); RDW Standard Deviation 48.8 fL (36.4-46.3); Red Blood Count 4.07 Miln/mm3 (4.00-5.20); White Blood Count 10.5 Thou/mm3 (3.6-11.0)
[2024-10-23 11:59] LABS: Collection Type, Urine Clean Catch
[2024-10-23 12:07] LABS: Alanine Aminotransferase 14 U/L (10-49); Albumin, Serum 4.5 gm/dL (3.4-4.8); Albumin/Globulin Ratio 1.4 (1.2-2.2); Alkaline Phosphatase 92 U/L (46-116); Anion Gap 10 (7-16); Aspartate Amino Transferase 16 U/L (0-34); BUN/Creatinine Ratio 19 Ratio (12-20); Bilirubin,Total 0.3 mg/dL (0.3-1.2); Blood Urea Nitrogen 19 mg/dL (9-23); Calcium 10.1 mg/dL (8.3-10.6); Calcium (Corrected) 10.1 mg/dL (8.5-10.1); Carbon Dioxide 27.3 mMol/L (20.0-31.0); Chloride 101 mMol/L (98-107); Estimated Creatinine Clearance 41.9 mL/min (>60); Globulin 3.2 gm/dL (2.3-3.5); Glucose 141 mg/dL (74-106); Lipase 35 U/L (12-53); Osmolality,Calculated 279 (275-295); Potassium 4.8 mMol/L (3.4-5.1); Sodium 138 mMol/L (136-145); Total Protein 7.7 gm/dL (5.7-8.2); eGFR 58 See Note
[2024-10-23 12:25] LABS: Bacteria,Urine Rare; Bilirubin,Urine Negative (Negative); Blood,Urine Negative (Negative); Clarity,Urine Clear (Clear/Hazy); Glucose, Urine Negative (Negative); Ketones,Urine Negative (Negative); Leukocyte Esterase,Urine Negative (Negative); Nitrite,Urine Negative (Negative); Protein,Urine Negative (Neg - Trace); RBC,Urine 2 /hpf (0-3); Specific Gravity,Urine 1.008 (1.001-1.035); Squamous Epithelial Cell,Urine 3 /hpf (0-5); Urobilinogen,Urine Negative mg/dL (0.0-1.0); WBC,Urine < 1 /hpf (0-5)
[2024-10-23 12:29] LABS: Color,Urine Lt-Yellow (Lt Yel-Yel)
--- NOTE | 2024-10-23 13:00 | PD.EDABDPN ---
ED Abdominal Pain RME/HPI General Chief Complaint: Nausea/Vomiting/Diarrhea Stated complaint: ABDOMINAL PAIN WITH DIARRHEA Time seen by provider: 10/23/24 11:12 Arrival date/time: 10/23/24 11:06 RME / HPI RME / HPI narrative: 10/23/24 11:06 79-year-old female with a history of hypertension, hypothyroidism, type 2 diabetes presents to the emergency room with a chief complaint of lower abdominal cramping and diarrhea x 1 day I have greeted and performed a focused initial assessment of this patient. A comprehensive ED assessment and evaluation of the patient, analysis of all test results, and completion of the medical decision making process will be conducted by additional ED providers. DR. MOON MAIN ED EVALUATION: 79 year old female with past medical history significant for hypertension, duodenal ulcer, chronic abdominal pain, hypothyroidism, type 2 diabetes presents to the Emergency Department with complaint of chronic abdominal pain, mainly lower. She states she was passing hard stools then took some medications and had loose stools after; so now has diarrhea and cramping. No blood in the stools, no black stools. Her abdominal pain was described as aching and cramping. Associated symptoms include nausea. No coughing, congestion, or cold symptoms. Patient complains of nausea but no vomiting. No leg swelling, chest pain, or other symptoms at this time. Related Data Home Medications ?Medication ?Instructions ?Recorded ?Confirmed Bifidobacterium infantis 4 mg 4 mg PO DAILY 06/27/23 06/11/24 capsule (Align) acetaminophen 500 mg tablet 500 mg PO PRN PRN Pain 06/27/23 10/28/23 cholecalciferol (vitamin D3) 25 25 mcg PO 1XD 06/27/23 10/28/23 mcg (1,000 unit) tablet (Vitamin D3) levothyroxine 50 mcg tablet 50 mcg PO DAILY 06/27/23 06/11/24 metformin 500 mg tablet 500 mg PO DAILY 06/27/23 06/11/24 duloxetine 60 mg capsule,delayed 60 mg PO QDAY 08/23/23 06/11/24 release alprazolam 0.5 mg tablet 0.5 mg PO BID PRN Anxiety 10/28/23 06/11/24 benazepril 20 mg tablet 20 mg PO QDAY 10/28/23 06/11/24 loperamide 2 mg capsule 2 mg PO QDAY 10/28/23 10/28/23 pantoprazole 40 mg tablet,delayed 40 mg PO QDAY 10/28/23 06/11/24 release apixaban 5 mg tablet (Eliquis) 5 mg PO QDAY 06/11/24 06/11/24 Previous Rx's ?Medication ?Instructions ?Recorded famotidine 20 mg tablet 20 mg PO BID #20 tabs 11/01/23 ondansetron 4 mg disintegrating 4 mg PO Q8H PRN nausea and 02/22/24 tablet vomiting #30 tabs sucralfate 100 mg/mL oral 5 ml PO QID #420 mL 04/10/24 suspension (Carafate) acetaminophen 300 mg-codeine 30 mg 2 tab PO TID PRN pain #20 tabs 07/02/24 tablet cefdinir 300 mg capsule 300 mg PO BID #14 caps 07/02/24 lidocaine HCl 2 % mucosal solution 5 ml PO TIDPC PRN dyspepsia #300 mL 07/02/24 (Lidocaine Viscous) sucralfate 100 mg/mL oral 10 ml PO TID #500 mL 07/02/24 suspension (Carafate) Allergies Allergy/AdvReac Type Severity Reaction Status Date / Time amoxicillin (From Augmentin) Allergy Severe Hives Verified 10/23/24 11:09 aspirin Allergy Severe Abdominal Verified 10/23/24 11:09 Pain ciprofloxacin (From Cipro) Allergy Severe Gastrointestinal Verified 10/23/24 11:09 Upset clavulanic acid (From Allergy Severe Hives Verified 10/23/24 11:09 Augmentin) codeine Allergy Severe Nausea Verified 10/23/24 11:09 fluconazole Allergy Severe Rash Verified 10/23/24 11:09 gabapentin Allergy Severe Abdominal Verified 10/23/24 11:09 Pain ketorolac (From Toradol) Allergy Severe Abdominal Verified 10/16/24 00:11 Pain nalbuphine Allergy Severe Abdominal Verified 10/23/24 11:09 Pain Sulfa (Sulfonamide Allergy Severe Hives Verified 10/23/24 11:09 Antibiotics) tizanidine Allergy Severe Rash Verified 10/23/24 11:09 tramadol Allergy Severe Rash Verified 10/16/24 00:11 Review of Systems Review of Systems Systems Reviewed: All systems reviewed, normal except as documented Past Medical History Past Medical History NEUROLOGIC: Negative Neurological Disorders or Seizures CARDIAC: Positive Cardiac Disorders, Cardiac Arrhythmia, Atrial Fibrillation (on eliquis), Hypercholesterolemia and Hypertension; Negative Congestive Heart Failure RESPIRATORY: Positive Asthma, Pneumonia and Sleep Apnea; Negative Chronic Obstructive Pulmonary Disease (COPD) GASTROINTESTINAL: Positive Gastrointestinal Disorders, Gastrointestinal Bleed, Colitis, Ulcerative Colitis, Diverticulitis, Diverticulosis, Ulcer, Irritable Bowel, Obstructive Bowel, Hemorrhoids and Obesity GENITOURINARY: Positive Kidney Stones (Pt states stone present in kidney); Negative Genitourinary Disorders or Renal Disease REPRODUCTIVE: Positive Previous Pregnancies MUSCULOSKELETAL: Positive Musculoskeletal Disorders and Arthritis ENT: Positive Cataracts and Ear Infection ENDOCRINE: Positive Diabetes Mellitus Type 2 and Hypothyroidism; Negative Diabetes Mellitus Type 1 HEMATOLOGIC: Negative Blood Disorders or Sickle Cell Disease PSYCHO/SOCIAL: Positive Anxiety OTHER HISTORY: Positive Falls, Blood Transfusions, Anesthesia Reactions (pt states hallucination for 2-3 days after knee replacement), Chicken Pox, Mumps and Clostridium Difficile; Negative Cancer Family History FAMILY HISTORY: Positive Family Cardiac Disorders; Negative Family Respiratory Disorders Surgical History SURGICAL: Positive Cardiac Surgery (ablasion), Endocrine Surgery, Thyroidectomy, Abdominal Surgery, Joint Replacement (R hip, R knee, and L ankle replacements), Hysterectomy and Section Social History SMOKING STATUS: Never smoker SUBSTANCE USE: does not use ALCOHOL: Never ED Exam Narrative Physical exam: GENERAL: In general the patient is awake, interactive, in an emergency department gurney. VITALS: All vitals were reviewed and the pulse ox is 94% on room air which is adequate. HEAD/EYES/EARS/NOSE/THROAT: normo-cephalic, atraumatic, mucus membranes are moist, anicteric, palpebral conjunctiva is pink, trachea is midline. CARDIOVASCULAR: regular rate and regular rhythm, no murmurs, heart sounds are not distant, strong pulses in all four extremities that are equal and symmetric bilateral upper and lower extremities, normal capillary refill. CHEST/PULMONARY: normal chest rise and fall, good air movement, clear to auscultation bilaterally, normal inspiratory to expiratory ratios without evidence of respiratory distress. ABDOMEN: soft, nondistended, not tender, no masses appreciated BACK: normal range of motion without pain. NEUROLOGICAL: cranio-facial features are symmetric, moves all four extremities equally without obvious limitations or weakness. EXTREMITY: no tenderness to palpation over the long bones or large joints of the bilateral upper and lower extremities, no joint swelling, no joint erythema, no signs of trauma, no unilateral leg swelling and no peripheral edema. SKIN: warm, dry, well-perfused, no jaundice, no rash, no telangiectasias or petechia. PSYCH: calm, cooperative, no evidence of psychosis or agitation Course Quality Measures none Orders Category Date Time Status CBC Stat Lab 10/23/24 11:40 Completed CMP [Comprehensive Metabolic Panel] Stat Lab 10/23/24 11:40 Completed Lipase Stat Lab 10/23/24 11:40 Completed UA [Urinalysis] Stat Lab 10/23/24 11:40 Completed Urine Culture Stat Lab 10/23/24 11:40 Received Acetaminophen Tab [Tylenol Tab] Med 10/23/24 11:21 Discontinued 650 mg PO X1 ONE Ondansetron Odt [Zofran Odt] Med 10/23/24 13:10 Discontinued 4 mg PO X1 ONE Vital Signs Vital signs: Vital Signs Temperature 97.8 F 10/23/24 11:15 Pulse Rate 93 10/23/24 11:15 Respiratory Rate 18 10/23/24 11:15 Blood Pressure 179/82 H 10/23/24 11:15 Pulse Oximetry (%) 94 L 10/23/24 11:15 Oxygen Delivery Method Room Air 10/23/24 11:15 Abdominal Pain MDM MDM Narrative MDM Narrative:: ISandra am scribing for and in the presence of Dr. Moon. Patient data External records reviewed:: [facility] previous records (Reviewed last ED visit dated 10/16/24, discharged with the following: Abdominal pain) Clinical information provided by:: patient Social determinants that could affect healthcare access:: none Patient has the following chronic illnesses:: hypertension, duodenal ulcer, chronic abdominal pain, hypothyroidism, type 2 diabetes How is presenting disease/condition affected by chronic disease/condition?: exacerbated by Evaluation data The following diagnostics were reviewed and interpreted by me:: lab results Lab and/or radiology exams considered but not ordered:: none Interpretation Summary: No acute findings. Medications / Prescriptions Medications or Prescriptions considered but not ordered:: none Medication administrations:: Medication Administration History Discontinued Medications Acetaminophen (Acetaminophen 325 Mg Tablet) 650 mg PO X1 ONE Stop: 10/23/24 11:22 Last Admin: 10/23/24 11:34 Dose: 650 mg Documented By: ELSY Ondansetron HCl (Ondansetron Odt 4 Mg Tabrap) 4 mg PO X1 ONE; Protocol Stop: 10/23/24 13:11 Last Admin: 10/23/24 13:13 Dose: 4 mg Documented By: JT see above Consultations Consultation(s) initiated? (list below): No Diagnosis Differential diagnosis abdominal pain: abdominal pain and other (ulcers, GERD) Most likely diagnosis given after review of the tests above:: Diarrhea Admission Indicated Admission indicated?: not indicated Admission Request Was there a request for admission?: No Disposition Plan Disposition Plan: Discharge (Eloped before she got discharge papers but she knew she was discharged.) Discharge Attestation Discharge Attestation: The patient and all family members were given an opportunity to ask questions and understood the discharge instructions. Discharge instructions specifically effects, indications for sooner follow up or return to the emergency department, and the expected course of current diagnosis. Patient condition: Stable Discharge Plan Plan Patient Disposition: Elopement Patient condition on transfer: Stable Prescriptions/Referrals Prescriptions/Med Rec: No Action metformin 500 mg Tablet 500 mg PO DAILY acetaminophen 500 mg Tablet 500 mg PO PRN MDD 4 PRN (Reason: Pain) levothyroxine 50 mcg Tablet 50 mcg PO DAILY cholecalciferol (vitamin D3) [Vitamin D3] 25 mcg (1,000 unit) Tablet 25 mcg PO 1XD Align 4 mg Capsule 4 mg PO DAILY duloxetine 60 mg capsule,delayed release(DR/EC) 60 mg PO QDAY Rx Instructions: Takes 80mg in the afternoon loperamide 2 mg capsule 2 mg PO QDAY alprazolam 0.5 mg tablet 0.5 mg PO BID PRN (Reason: Anxiety) Patient Comments: TAKE 1 TABLET BY MOUTH THREE TIMES DAILY NEEDED FOR ANXIETY pantoprazole 40 mg tablet,delayed release (DR/EC) 40 mg PO QDAY Patient Comments: TAKE 1 TABLET BY MOUTH DAILY benazepril 20 mg tablet 20 mg PO QDAY famotidine 20 mg tablet 20 mg PO BID Qty: 20 0RF ondansetron 4 mg tablet,disintegrating 4 mg PO Q8H PRN (Reason: nausea and vomiting) Qty: 30 0RF lidocaine HCl [Lidocaine Viscous] 2 % solution 5 ml PO TIDPC MDD 15 mL PRN (Reason: dyspepsia) Qty: 300 0RF sucralfate [Carafate] 100 mg/mL suspension 10 ml PO TID Qty: 500 0RF Rx Instructions: swish in mouth and swallow; use after food/drink acetaminophen-codeine 300-30 mg tablet 2 tab PO TID MDD 6 PRN (Reason: pain) Qty: 20 0RF cefdinir 300 mg capsule 300 mg PO BID Qty: 14 0RF sucralfate [Carafate] 100 mg/mL suspension 5 ml PO QID Qty: 420 0RF Rx Instructions: swish in mouth and swallow; use after food/drink Eliquis 5 mg Tablet 5 mg PO QDAY Referrals: Tyrone Langford MD [Primary Care Provider] - In 1 week Problem List Clinical Impression: Diarrhea Patient/Caregiver Discharge Instructions Print Language: Tamazight
[2024-10-23] MEDS: ONDANSETRON ODT 4 MG TABRAP PO (13:13)
== END 2024-10-23 13:59 | disposition home or self-care (01) ==
PROVIDERS: Nurse Practitioner Family; Emergency Provider Emergency Medicine; PCP Family Medicine
DX: R19.7 Diarrhea, unspecified (principal); E03.9 Hypothyroidism, unspecified; I10 Essential (primary) hypertension; E11.9 Type 2 diabetes mellitus without complications
CPT/HCPCS: 36415; 80053; 81001; 83690; 85025; 87086; 99283; Q0162; A9270

== ENCOUNTER 2024-11-16 01:26 | Emergency (ER) | payer MEDICARE, BC, SELFPAY ==
[2024-11-16 01:27] VITALS: BMI 32.2
[2024-11-16 01:41] VITALS: BP 173/76; PULSE 86; RESP 19; TEMP 36.3; O2SAT 96
[2024-11-16] MEDS: PANTOPRAZOLE 40 MG TABLET PO (01:53)
[2024-11-16] MEDS: FAMOTIDINE 20 MG TABLET 40 MG PO (01:53)
[2024-11-16] MEDS: ONDANSETRON ODT 4 MG TABRAP PO (01:54)
[2024-11-16 02:42] VITALS: BP 153/73; PULSE 83; RESP 17; TEMP 36.5; O2SAT 96
--- NOTE | 2024-11-16 03:23 | PD.EDABDPN ---
ED Abdominal Pain RME/HPI General Chief Complaint: Abdominal Pain Stated complaint: ABD PAIN AND BURNING Time seen by provider: 11/16/24 01:43 Arrival date/time: 11/16/24 01:26 78F with history of HTN, DM, duodenal ulcer and chronic ab pain presents to ED with burning epigastric pain and N/V after eating some English dip sandwich. Patient took GI cocktail at home that improved symptoms, but burping and burning keeps coming back. Limitations: no limitations Related Data Home Medications ?Medication ?Instructions ?Recorded ?Confirmed Bifidobacterium infantis 4 mg 4 mg PO DAILY 06/27/23 06/11/24 capsule (Align) acetaminophen 500 mg tablet 500 mg PO PRN PRN Pain 06/27/23 10/28/23 cholecalciferol (vitamin D3) 25 25 mcg PO 1XD 06/27/23 10/28/23 mcg (1,000 unit) tablet (Vitamin D3) levothyroxine 50 mcg tablet 50 mcg PO DAILY 06/27/23 06/11/24 metformin 500 mg tablet 500 mg PO DAILY 06/27/23 06/11/24 duloxetine 60 mg capsule,delayed 60 mg PO QDAY 08/23/23 06/11/24 release alprazolam 0.5 mg tablet 0.5 mg PO BID PRN Anxiety 10/28/23 06/11/24 benazepril 20 mg tablet 20 mg PO QDAY 10/28/23 06/11/24 loperamide 2 mg capsule 2 mg PO QDAY 10/28/23 10/28/23 pantoprazole 40 mg tablet,delayed 40 mg PO QDAY 10/28/23 06/11/24 release apixaban 5 mg tablet (Eliquis) 5 mg PO QDAY 06/11/24 06/11/24 Previous Rx's ?Medication ?Instructions ?Recorded famotidine 20 mg tablet 20 mg PO BID #20 tabs 11/01/23 ondansetron 4 mg disintegrating 4 mg PO Q8H PRN nausea and 02/22/24 tablet vomiting #30 tabs sucralfate 100 mg/mL oral 5 ml PO QID #420 mL 04/10/24 suspension (Carafate) acetaminophen 300 mg-codeine 30 mg 2 tab PO TID PRN pain #20 tabs 07/02/24 tablet cefdinir 300 mg capsule 300 mg PO BID #14 caps 07/02/24 lidocaine HCl 2 % mucosal solution 5 ml PO TIDPC PRN dyspepsia #300 mL 07/02/24 (Lidocaine Viscous) sucralfate 100 mg/mL oral 10 ml PO TID #500 mL 07/02/24 suspension (Carafate) Allergies Allergy/AdvReac Type Severity Reaction Status Date / Time amoxicillin (From Augmentin) Allergy Severe Hives Verified 11/16/24 01:27 aspirin Allergy Severe Abdominal Verified 11/16/24 01:27 Pain ciprofloxacin (From Cipro) Allergy Severe Gastrointestinal Verified 11/16/24 01:27 Upset clavulanic acid (From Allergy Severe Hives Verified 11/16/24 01:27 Augmentin) codeine Allergy Severe Nausea Verified 11/16/24 01:27 fluconazole Allergy Severe Rash Verified 11/16/24 01:27 gabapentin Allergy Severe Abdominal Verified 11/16/24 01:27 Pain ketorolac (From Toradol) Allergy Severe Abdominal Verified 11/16/24 01:27 Pain nalbuphine Allergy Severe Abdominal Verified 11/16/24 01:27 Pain Sulfa (Sulfonamide Allergy Severe Hives Verified 11/16/24 01:27 Antibiotics) tizanidine Allergy Severe Rash Verified 11/16/24 01:27 tramadol Allergy Severe Rash Verified 11/16/24 01:27 Review of Systems Review of Systems Systems Reviewed: All systems reviewed, normal except as documented Constitutional Constitutional: Reports system reviewed and no additional complaints, except as documented, Denies fever(s) and Denies headache(s) ENT Ears, Nose, Mouth, and Throat: Denies disequilibrium and Denies headache(s) Cardiovascular Cardiovascular: Reports system reviewed and no additional complaints, except as documented, Denies chest pain and Denies dyspnea Respiratory Respiratory: Reports system reviewed and no additional complaints, except as documented, Denies cough and Denies dyspnea Gastrointestinal Gastrointestinal: Reports system reviewed and no additional complaints, except as documented, Reports as per HPI, Reports abdominal pain, Reports nausea and Reports vomiting Neurologic Neurologic: Reports system reviewed and no additional complaints, except as documented, Denies confusion, Denies disequilibrium and Denies headache(s) Psychiatric Psychiatric: Denies confusion Past Medical History Past Medical History NEUROLOGIC: Negative Neurological Disorders or Seizures CARDIAC: Positive Cardiac Disorders, Cardiac Arrhythmia, Atrial Fibrillation (on eliquis), Hypercholesterolemia and Hypertension; Negative Congestive Heart Failure RESPIRATORY: Positive Asthma, Pneumonia and Sleep Apnea; Negative Chronic Obstructive Pulmonary Disease (COPD) GASTROINTESTINAL: Positive Gastrointestinal Disorders, Gastrointestinal Bleed, Colitis, Ulcerative Colitis, Diverticulitis, Diverticulosis, Ulcer, Irritable Bowel, Obstructive Bowel, Hemorrhoids and Obesity GENITOURINARY: Positive Kidney Stones (Pt states stone present in kidney); Negative Genitourinary Disorders or Renal Disease REPRODUCTIVE: Positive Previous Pregnancies MUSCULOSKELETAL: Positive Musculoskeletal Disorders and Arthritis ENT: Positive Cataracts and Ear Infection ENDOCRINE: Positive Diabetes Mellitus Type 2 and Hypothyroidism; Negative Diabetes Mellitus Type 1 HEMATOLOGIC: Negative Blood Disorders or Sickle Cell Disease PSYCHO/SOCIAL: Positive Anxiety OTHER HISTORY: Positive Falls, Blood Transfusions, Anesthesia Reactions (pt states hallucination for 2-3 days after knee replacement), Chicken Pox, Mumps and Clostridium Difficile; Negative Cancer Family History FAMILY HISTORY: Positive Family Cardiac Disorders; Negative Family Respiratory Disorders Surgical History SURGICAL: Positive Cardiac Surgery (ablasion), Endocrine Surgery, Thyroidectomy, Abdominal Surgery, Joint Replacement (R hip, R knee, and L ankle replacements), Hysterectomy and Section Social History SMOKING STATUS: Never smoker SUBSTANCE USE: does not use ED Exam General Limitations: Present no limitations General appearance: Present alert and in no apparent distress Head Head exam: Present atraumatic Eye Eye exam: Present normal appearance, PERRL and EOMI ENT ENT exam: Present normal exam, normal oropharynx and mucous membranes moist Neck Neck exam: Present normal inspection, full ROM and trachea midline Chest Chest inspection: Present normal inspection and symmetric chest wall rise Respiratory Respiratory exam: Present normal lung sounds bilaterally Cardiovascular Cardiovascular exam: Present regular rate, normal rhythm and normal heart sounds Abdominal Exam Abdominal exam: Present soft and normal bowel sounds Extremities Exam Extremities exam: Present normal inspection and full ROM Back Exam Back exam: Present normal inspection and full ROM Neurological Exam Neurological exam: Present alert, oriented X3 and CN II-XII intact Psychiatric Psychiatric exam: Present normal affect and normal mood Skin Skin exam: Present warm, dry, intact and normal color Course Quality Measures none Orders Category Date Time Status Famotidine [Pepcid] Med 11/16/24 01:43 Discontinued 40 mg PO X1 ONE Ondansetron Odt [Zofran Odt] Med 11/16/24 01:43 Discontinued 4 mg PO X1 ONE Pantoprazole [Protonix] Med 11/16/24 01:43 Discontinued 40 mg PO X1 ONE Vital Signs Vital signs: Vital Signs Temperature 97.4 F 11/16/24 01:41 Pulse Rate 86 11/16/24 01:41 Respiratory Rate 19 11/16/24 01:41 Blood Pressure 173/76 H 11/16/24 01:41 Pulse Oximetry (%) 96 11/16/24 01:41 Oxygen Delivery Method Room Air 11/16/24 01:41 O2 at 96% on RA and WNLs Abdominal Pain MDM MDM Narrative MDM Narrative:: 78F with history of HTN, DM, duodenal ulcer and chronic ab pain presents to ED with burning epigastric pain and N/V after eating some English dip sandwich. Patient took GI cocktail at home that improved symptoms, but burping and burning keeps coming back. Physical exam reveals well-appearing female. Patient is afebrile, calm, and alert. Meds given. Patient did not want to wait to see if meds helped. Patient data External records reviewed:: [facility] previous records Clinical information provided by:: patient Social determinants that could affect healthcare access:: none Patient has the following chronic illnesses:: HTN, DM, duodenal ulcer and chronic ab pain How is presenting disease/condition affected by chronic disease/condition?: exacerbated by Evaluation data The following diagnostics were reviewed and interpreted by me:: other (specify) (none) Lab and/or radiology exams considered but not ordered:: not ordered Interpretation Summary: n/a Medications / Prescriptions Medications or Prescriptions considered but not ordered:: ordered Medication administrations:: Medication Administration History Discontinued Medications Famotidine (Famotidine 20 Mg Tablet) 40 mg PO X1 ONE Stop: 11/16/24 01:44 Last Admin: 11/16/24 01:53 Dose: 40 mg Documented By: INDIGO Ondansetron HCl (Ondansetron Odt 4 Mg Tabrap) 4 mg PO X1 ONE; Protocol Stop: 11/16/24 01:44 Last Admin: 11/16/24 01:54 Dose: 4 mg Documented By: INDIGO Pantoprazole Sodium (Pantoprazole 40 Mg Tablet) 40 mg PO X1 ONE Stop: 11/16/24 01:44 Last Admin: 11/16/24 01:53 Dose: 40 mg Documented By: INDIGO above Consultations Consultation(s) initiated? (list below): No Diagnosis Differential diagnosis abdominal pain: abdominal pain, acute appendicitis, calculus of kidney, constipation, diverticulitis, endometriosis, gastroenteritis, pancreatitis and small bowel obstruction Most likely diagnosis given after review of the tests above:: ab pain Admission Indicated Admission indicated?: not indicated Admission Request Was there a request for admission?: No Disposition Plan Disposition Plan: Discharge Discharge Attestation Discharge Attestation: The patient and all family members were given an opportunity to ask questions and understood the discharge instructions. Discharge instructions specifically effects, indications for sooner follow up or return to the emergency department, and the expected course of current diagnosis. Patient condition: Stable Discharge Plan Plan Patient Disposition: HOME (Self Care) Disposition Comment: Stable Prescriptions/Referrals Prescriptions/Med Rec: No Action metformin 500 mg Tablet 500 mg PO DAILY acetaminophen 500 mg Tablet 500 mg PO PRN MDD 4 PRN (Reason: Pain) levothyroxine 50 mcg Tablet 50 mcg PO DAILY cholecalciferol (vitamin D3) [Vitamin D3] 25 mcg (1,000 unit) Tablet 25 mcg PO 1XD Align 4 mg Capsule 4 mg PO DAILY duloxetine 60 mg capsule,delayed release(DR/EC) 60 mg PO QDAY Rx Instructions: Takes 80mg in the afternoon loperamide 2 mg capsule 2 mg PO QDAY alprazolam 0.5 mg tablet 0.5 mg PO BID PRN (Reason: Anxiety) Patient Comments: TAKE 1 TABLET BY MOUTH THREE TIMES DAILY NEEDED FOR ANXIETY pantoprazole 40 mg tablet,delayed release (DR/EC) 40 mg PO QDAY Patient Comments: TAKE 1 TABLET BY MOUTH DAILY benazepril 20 mg tablet 20 mg PO QDAY famotidine 20 mg tablet 20 mg PO BID Qty: 20 0RF ondansetron 4 mg tablet,disintegrating 4 mg PO Q8H PRN (Reason: nausea and vomiting) Qty: 30 0RF lidocaine HCl [Lidocaine Viscous] 2 % solution 5 ml PO TIDPC MDD 15 mL PRN (Reason: dyspepsia) Qty: 300 0RF sucralfate [Carafate] 100 mg/mL suspension 10 ml PO TID Qty: 500 0RF Rx Instructions: swish in mouth and swallow; use after food/drink acetaminophen-codeine 300-30 mg tablet 2 tab PO TID MDD 6 PRN (Reason: pain) Qty: 20 0RF cefdinir 300 mg capsule 300 mg PO BID Qty: 14 0RF sucralfate [Carafate] 100 mg/mL suspension 5 ml PO QID Qty: 420 0RF Rx Instructions: swish in mouth and swallow; use after food/drink Eliquis 5 mg Tablet 5 mg PO QDAY Problem List Clinical Impression: Abdominal pain Patient/Caregiver Discharge Instructions Additional Instructions: Please follow-up with PCP within 24-48 hours and return immediately if symptoms worsen. Print Language: Serbian Stand Alone Forms: Patient Portal Info Letter PA/SOFTWARE PROJECT LEAD Supervising Physician PA/SOFTWARE PROJECT LEAD Supervising Physician: Dr. Hernadez
== END 2024-11-16 02:58 | disposition home or self-care (01) ==
LOC: SERX 03:02
PROVIDERS: Emergency Provider Emergency Medicine; PCP Family Medicine
DX: R10.13 Epigastric pain (principal); I10 Essential (primary) hypertension; E11.9 Type 2 diabetes mellitus without complications; E78.00 Pure hypercholesterolemia, unspecified; I48.91 Unspecified atrial fibrillation; E03.9 Hypothyroidism, unspecified; G89.29 Other chronic pain; Z87.11 Personal history of peptic ulcer disease; Z79.01 Long term (current) use of anticoagulants; Z88.6 Allergy status to analgesic agent; Z88.5 Allergy status to narcotic agent; Z96.651 Presence of right artificial knee joint; Z90.710 Acquired absence of both cervix and uterus; Z96.641 Presence of right artificial hip joint
CPT/HCPCS: 99282; Q0162; A9270

== ENCOUNTER 2024-11-19 15:26 | Emergency (ER) | payer MEDICARE, BC, SELFPAY ==
[2024-11-19 16:03] VITALS: BP 171/72; PULSE 63; RESP 20; TEMP 36.5; O2SAT 96
--- NOTE | 2024-11-19 16:19 | PD.EDRME ---
Rapid Medical Screening Exam RME Arrival date/time: 11/19/24 15:26 This is a 79-year-old female that comes in with complaints of diffuse abdominal pain with abdominal swelling. Patient states that she has a history of duodenal ulcer that she is currently getting treatment for. Patient denies nausea vomiting. Patient denies fever. Patient states symptoms happened after something she ate this morning. Patient has a history of anxiety, depression, diabetes, high blood pressure, hypothyroidism. I have greeted and performed a focused initial assessment of this patient. Initial appropriate labs ordered at this time. A comprehensive ED assessment and evaluation of the patient and analysis of all test and completion of medical decision making process will be conducted by additional ED provider. Chief Complaint: Abdominal Pain Time Seen by Provider: 11/19/24 15:32 Vital signs: Vital Signs Temperature 97.7 F 11/19/24 16:03 Pulse Rate 63 11/19/24 16:03 Respiratory Rate 20 11/19/24 16:03 Blood Pressure 171/72 H 11/19/24 16:03 Pulse Oximetry (%) 96 11/19/24 16:03 Oxygen Delivery Method Room Air 11/19/24 16:03
[2024-11-19 16:35] LABS: Basophils # (Auto) 0.1 Thou/mm3 (0.0-0.2); Basophils % (Auto) 1 % (0-2.5); Eosinophils % (Auto) 0 % (0-10); Hematocrit 33.9 % (36.0-46.0); Hemoglobin 10.5 g/dL (12.0-16.0); Immature Granulocytes % (Auto) 0 % (0-0); Immature Granulocytes Auto 0.02 Thou/mm3 (0.00-0.00); Lymphocytes % (Auto) 24 % (10-50); Mean Corpuscular Hemoglobin 24.9 pg (25.0-35.0); Mean Corpuscular Volume 81 fL (80-100); Monocytes # (Auto) 0.8 Thou/mm3 (0.0-0.8); Monocytes % (Auto) 9 % (0-12); Neutrophils # (Auto) 5.5 Thou/mm3 (1.8-7.7); Neutrophils % (Auto) 66 % (37-80); Nucleated Red Blood Cell % 0 /100 WBC (0); Platelet Count 378 Thou/mm3 (140-440); RDW Standard Deviation 52.6 fL (36.4-46.3); Red Blood Count 4.21 Miln/mm3 (4.00-5.20); White Blood Count 8.4 Thou/mm3 (3.6-11.0)
[2024-11-19 16:52] LABS: Alanine Aminotransferase 15 U/L (10-49); Albumin, Serum 4.8 gm/dL (3.4-4.8); Albumin/Globulin Ratio 1.5 (1.2-2.2); Alkaline Phosphatase 87 U/L (46-116); Anion Gap 6 (7-16); Aspartate Amino Transferase 14 U/L (0-34); BUN/Creatinine Ratio 15 Ratio (12-20); Bilirubin,Total 0.2 mg/dL (0.3-1.2); Blood Urea Nitrogen 16 mg/dL (9-23); Calcium 9.5 mg/dL (8.3-10.6); Calcium (Corrected) 9.5 mg/dL (8.5-10.1); Carbon Dioxide 30.9 mMol/L (20.0-31.0); Chloride 101 mMol/L (98-107); Creatinine (Component) 1.1 mg/dL (0.6-1.3); Globulin 3.2 gm/dL (2.3-3.5); Glucose 187 mg/dL (74-106); Lipase 31 U/L (12-53); Osmolality,Calculated 281 (275-295); Sodium 138 mMol/L (136-145); eGFR 51 See Note
--- NOTE | 2024-11-19 17:39 | PD.EDABDPN ---
ED Abdominal Pain RME/HPI General Chief Complaint: Abdominal Pain Stated complaint: ULCER ACTING UP Time seen by provider: 11/19/24 15:32 Arrival date/time: 11/19/24 15:26 RME / HPI RME / HPI narrative: 79-year-old female patient came in for evaluation regarding abdominal pain. Patient told me that her duodenal ulcer is acting up, onset of symptoms earlier this morning, as upper abdominal pain described as burning-like sensation severity moderate. Patient is currently taking multiple medications for duodenal ulcer, namely PPI, Maalox, Carafate, which the patient took earlier today. Patient denies nausea vomiting. Patient denies fever. Patient states symptoms happened after something she ate this morning. Patient has a history of anxiety, depression, diabetes, high blood pressure, hypothyroidism. Related Data Home Medications ?Medication ?Instructions ?Recorded ?Confirmed Bifidobacterium infantis 4 mg 4 mg PO DAILY 06/27/23 06/11/24 capsule (Align) acetaminophen 500 mg tablet 500 mg PO PRN PRN Pain 06/27/23 10/28/23 cholecalciferol (vitamin D3) 25 25 mcg PO 1XD 06/27/23 10/28/23 mcg (1,000 unit) tablet (Vitamin D3) levothyroxine 50 mcg tablet 50 mcg PO DAILY 06/27/23 06/11/24 metformin 500 mg tablet 500 mg PO DAILY 06/27/23 06/11/24 duloxetine 60 mg capsule,delayed 60 mg PO QDAY 08/23/23 06/11/24 release alprazolam 0.5 mg tablet 0.5 mg PO BID PRN Anxiety 10/28/23 06/11/24 benazepril 20 mg tablet 20 mg PO QDAY 10/28/23 06/11/24 loperamide 2 mg capsule 2 mg PO QDAY 10/28/23 10/28/23 pantoprazole 40 mg tablet,delayed 40 mg PO QDAY 10/28/23 06/11/24 release apixaban 5 mg tablet (Eliquis) 5 mg PO QDAY 06/11/24 06/11/24 Previous Rx's ?Medication ?Instructions ?Recorded famotidine 20 mg tablet 20 mg PO BID #20 tabs 11/01/23 ondansetron 4 mg disintegrating 4 mg PO Q8H PRN nausea and 02/22/24 tablet vomiting #30 tabs sucralfate 100 mg/mL oral 5 ml PO QID #420 mL 04/10/24 suspension (Carafate) acetaminophen 300 mg-codeine 30 mg 2 tab PO TID PRN pain #20 tabs 07/02/24 tablet cefdinir 300 mg capsule 300 mg PO BID #14 caps 07/02/24 lidocaine HCl 2 % mucosal solution 5 ml PO TIDPC PRN dyspepsia #300 mL 07/02/24 (Lidocaine Viscous) sucralfate 100 mg/mL oral 10 ml PO TID #500 mL 07/02/24 suspension (Carafate) Allergies Allergy/AdvReac Type Severity Reaction Status Date / Time amoxicillin (From Augmentin) Allergy Severe Hives Verified 11/19/24 15:28 aspirin Allergy Severe Abdominal Verified 11/19/24 15:28 Pain ciprofloxacin (From Cipro) Allergy Severe Gastrointestinal Verified 11/19/24 15:28 Upset clavulanic acid (From Allergy Severe Hives Verified 11/19/24 15:28 Augmentin) codeine Allergy Severe Nausea Verified 11/19/24 15:28 fluconazole Allergy Severe Rash Verified 11/19/24 15:28 gabapentin Allergy Severe Abdominal Verified 11/19/24 15:28 Pain ketorolac (From Toradol) Allergy Severe Abdominal Verified 11/19/24 15:28 Pain nalbuphine Allergy Severe Abdominal Verified 11/19/24 15:28 Pain Sulfa (Sulfonamide Allergy Severe Hives Verified 11/19/24 15:28 Antibiotics) tizanidine Allergy Severe Rash Verified 11/19/24 15:28 tramadol Allergy Severe Rash Verified 11/19/24 15:28 Review of Systems Review of Systems Narrative Review of Systems: Review of system reviewed and within normal limits except mentioned in HPI ED Exam Narrative Physical exam: VITAL SIGNS: Reviewed. GENERAL APPEARANCE: Alert and interactive, follows commands, no acute distress, HEAD AND FACE: Non-traumatic. ENT: PERRL, pink conjunctivitis, eyelid no trauma, Mucous membrane moist. NECK: Supple, nontender, no nuchal rigidity. CHEST: No tenderness, no crepitus, no paradoxical movement, no retractions. LUNGS: Clear, well ventilated, symmetric, no rales, no wheezing, no ronchi, no stridor, good breath sounds bilaterally. HEART: Regular rate, regular rhythm, no murmur, no gallops. ABDOMEN: Soft, positive bowel sounds, nondistended, no guarding, upper abdominal tenderness, no rebound, no masses, RECTAL: Deferred. GENITAL: Deferred. NEUROLOGICAL: Gross motor function intact sensory function intact, Appropriate for age. MUSCULOSKELETAL: low back nontender, full range of motion. EXTREMITIES: Nontender, full range of motion. SKIN: Color pink, dry, no rash, no lacerations, no abrasions, no contusions. LYMPHATICS: Deferred. Course Quality Measures none Orders Category Date Time Status CBC Stat Lab 11/19/24 16:25 Completed Comprehensive Metabolic Panel Stat Lab 11/19/24 16:25 Completed Lipase Stat Lab 11/19/24 16:25 Completed Urinalysis, C/S if Indicated Stat Lab 11/19/24 18:00 Completed Dicyclomine [Bentyl] Med 11/19/24 17:38 Discontinued 20 mg PO X1 ONE Metoclopramide [Reglan] Med 11/19/24 17:37 Discontinued 10 mg PO X1 ONE mg Hyd/Al Hyd/Jennifer Susp [Maalox Susp] Med 11/19/24 17:37 Discontinued 30 ml PO X1 ONE Vital Signs Vital signs: Vital Signs Temperature 97.7 F 11/19/24 16:03 Pulse Rate 63 11/19/24 16:03 Respiratory Rate 20 11/19/24 16:03 Blood Pressure 171/72 H 11/19/24 16:03 Pulse Oximetry (%) 96 11/19/24 16:03 Oxygen Delivery Method Room Air 11/19/24 16:03 Abdominal Pain MDM MDM Narrative MDM Narrative:: 79-year-old female patient came in for evaluation regarding abdominal pain. Patient told me that her duodenal ulcer is acting up, onset of symptoms earlier this morning, as upper abdominal pain described as burning-like sensation severity moderate. Patient is currently taking multiple medications for duodenal ulcer, namely PPI, Maalox, Carafate, which the patient took earlier today. Patient denies nausea vomiting. Patient denies fever. Patient states symptoms happened after something she ate this morning. Patient has a history of anxiety, depression, diabetes, high blood pressure, hypothyroidism. Patient's workup today all came back unremarkable patient was given Maalox and Reglan with complete resolution of symptoms Patient appears nontoxic and hemodynamically stable. Patient discharged home and instructed to follow-up with primary care provider in 24 to 48 hours. Instructed to return to the emergency department immediately if worsening of symptoms Patient data External records reviewed:: None Clinical information provided by:: patient Social determinants that could affect healthcare access:: none Patient has the following chronic illnesses:: History of duodenal ulcer, anxiety, depression, hypertension, diabetes mellitus How is presenting disease/condition affected by chronic disease/condition?: exacerbated by Evaluation data The following diagnostics were reviewed and interpreted by me:: lab results Lab and/or radiology exams considered but not ordered:: None Interpretation Summary: See results in MDM Medications / Prescriptions Medications or Prescriptions considered but not ordered:: None Medication administrations:: Medication Administration History Discontinued Medications Al Hydrox/Mg Hydrox/Simethicone (Mg Hyd/Al Hyd/Jennifer (Maalox Reg) Susp 30 Ml Udc) 30 ml PO X1 ONE Stop: 11/19/24 17:38 Last Admin: 11/19/24 17:54 Dose: 30 ml Documented By: JASWANT Dicyclomine HCl (Dicyclomine 10 Mg Capsule) 20 mg PO X1 ONE Stop: 11/19/24 17:39 Last Admin: 11/19/24 17:55 Dose: Not Given Documented By: JASWANT Non-Admin Reason: Patient Refused Metoclopramide HCl (Metoclopramide 5 Mg Tablet) 10 mg PO X1 ONE Stop: 11/19/24 17:38 Last Admin: 11/19/24 17:53 Dose: 10 mg Documented By: Evens Tamez Consultations Consultation(s) initiated? (list below): No Diagnosis Differential diagnosis abdominal pain: abdominal pain and other (History of duodenal ulcer, gastritis) Most likely diagnosis given after review of the tests above:: Duodenal ulcer Admission Indicated Admission indicated?: not indicated Admission Request Was there a request for admission?: No Disposition Plan Disposition Plan: Discharge Discharge Attestation Discharge Attestation: The patient was given an opportunity to ask questions and understood the discharge instructions. Discharge instructions specifically effects, indications for sooner follow up or return to the emergency department, and the expected course of current diagnosis. Patient condition: Stable Discharge Plan Plan Patient Disposition: HOME (Self Care) Disposition Comment: Stable Prescriptions/Referrals Prescriptions/Med Rec: No Action metformin 500 mg Tablet 500 mg PO DAILY acetaminophen 500 mg Tablet 500 mg PO PRN MDD 4 PRN (Reason: Pain) levothyroxine 50 mcg Tablet 50 mcg PO DAILY cholecalciferol (vitamin D3) [Vitamin D3] 25 mcg (1,000 unit) Tablet 25 mcg PO 1XD Align 4 mg Capsule 4 mg PO DAILY duloxetine 60 mg capsule,delayed release(DR/EC) 60 mg PO QDAY Rx Instructions: Takes 80mg in the afternoon loperamide 2 mg capsule 2 mg PO QDAY alprazolam 0.5 mg tablet 0.5 mg PO BID PRN (Reason: Anxiety) Patient Comments: TAKE 1 TABLET BY MOUTH THREE TIMES DAILY NEEDED FOR ANXIETY pantoprazole 40 mg tablet,delayed release (DR/EC) 40 mg PO QDAY Patient Comments: TAKE 1 TABLET BY MOUTH DAILY benazepril 20 mg tablet 20 mg PO QDAY famotidine 20 mg tablet 20 mg PO BID Qty: 20 0RF ondansetron 4 mg tablet,disintegrating 4 mg PO Q8H PRN (Reason: nausea and vomiting) Qty: 30 0RF lidocaine HCl [Lidocaine Viscous] 2 % solution 5 ml PO TIDPC MDD 15 mL PRN (Reason: dyspepsia) Qty: 300 0RF sucralfate [Carafate] 100 mg/mL suspension 10 ml PO TID Qty: 500 0RF Rx Instructions: swish in mouth and swallow; use after food/drink acetaminophen-codeine 300-30 mg tablet 2 tab PO TID MDD 6 PRN (Reason: pain) Qty: 20 0RF cefdinir 300 mg capsule 300 mg PO BID Qty: 14 0RF sucralfate [Carafate] 100 mg/mL suspension 5 ml PO QID Qty: 420 0RF Rx Instructions: swish in mouth and swallow; use after food/drink Eliquis 5 mg Tablet 5 mg PO QDAY Referrals: Tyrone Langford MD [Primary Care Provider] - In 1 week Problem List Clinical Impression: Duodenal ulcer disease Patient/Caregiver Discharge Instructions Discharge Activity: activity as tolerated Education Materials: Anatomy of the Digestive System Additional Instructions: Thank you for the opportunity for serving you today. You are stable for discharged . You are advised to: Follow-up with your PCP in 1 to 2 days Return to ED for worsening of symptoms Increase oral fluids Take medication as prescribed by your PCP Print Language: Azeri Stand Alone Forms: [facility] Award Info., Patient Portal Info Letter FEROZ/ZULEIKA Supervising Physician FEROZ/ZULEIKA Supervising Physician: MD Juan
[2024-11-19] MEDS: METOCLOPRAMIDE 5 MG TABLET 10 MG PO (17:53)
[2024-11-19] MEDS: MG HYD/AL HYD/SIME (Maalox Reg) SUSP 30 ML UDC PO (17:54)
[2024-11-19 18:22] LABS: Collection Type, Urine Voided
[2024-11-19 18:28] LABS: Bilirubin,Urine Negative (Negative); Blood,Urine Negative (Negative); Clarity,Urine Clear (Clear/Hazy); Color,Urine Lt-Yellow (Lt Yel-Yel); Culture Indicated,Urine Not Indicated; Glucose, Urine Negative (Negative); Ketones,Urine Negative (Negative); Leukocyte Esterase,Urine Positive (Negative); Nitrite,Urine Negative (Negative); Protein,Urine Negative (Neg - Trace); RBC,Urine 1 /hpf (0-3); Specific Gravity,Urine 1.015 (1.001-1.035); Squamous Epithelial Cell,Urine 1 /hpf (0-5); Urobilinogen,Urine Negative mg/dL (0.0-1.0); WBC,Urine 1 /hpf (0-5)
== END 2024-11-19 18:58 | disposition home or self-care (01) ==
PROVIDERS: Nurse Practitioner Family; Emergency Provider Emergency Medicine; PCP Family Medicine
DX: K26.9 Duodenal ulcer, unspecified as acute or chronic, without hemorrhage or perforation (principal); F41.9 Anxiety disorder, unspecified; F32.A Depression, unspecified; E11.9 Type 2 diabetes mellitus without complications; E03.9 Hypothyroidism, unspecified
CPT/HCPCS: 36415; 80053; 81001; 83690; 85025; 99283; A9270

== ENCOUNTER 2024-11-21 09:23 | Emergency (ER) | payer MEDICARE, BC, SELFPAY ==
[2024-11-21] VITALS (8 sets, daily range): BP systolic 149–235; BP diastolic 72–91; PULSE 65–90; RESP 14–19; TEMP 36.6–36.8; O2SAT 95–98; BMI 28.3
--- NOTE | 2024-11-21 10:09 | PD.EDABDPN ---
ED Abdominal Pain RME/HPI General Chief Complaint: Abdominal Pain Stated complaint: ABD PAIN Arrival date/time: 11/21/24 09:23 RME / HPI RME / HPI narrative: DR. SANTANA MAIN ED EVALUATION: 79 year old female with past medical history significant for duodenal ulcer disease, diverticulitis, and chronic abdominal pain presents to the Emergency Department [facility] with complaint of epigastric pain with associated nausea and diarrhea. She states symptoms started last night and she took her GI cocktail at home with little to no relief. She also took nausea medication at home and that helped. No blood in the stools or black stools. No vomiting. Patient also mentioned having chills but no fevers. Patient had a colonoscopy and an endoscopy both on 10/28/[address] Osuna. Other PMHx includes hypothyroidism, type 2 diabetes, and hypertension. Related Data Home Medications ?Medication ?Instructions ?Recorded ?Confirmed Bifidobacterium infantis 4 mg 4 mg PO DAILY 06/27/23 06/11/24 capsule (Align) acetaminophen 500 mg tablet 500 mg PO PRN PRN Pain 06/27/23 10/28/23 cholecalciferol (vitamin D3) 25 25 mcg PO 1XD 06/27/23 10/28/23 mcg (1,000 unit) tablet (Vitamin D3) levothyroxine 50 mcg tablet 50 mcg PO DAILY 06/27/23 06/11/24 metformin 500 mg tablet 500 mg PO DAILY 06/27/23 06/11/24 duloxetine 60 mg capsule,delayed 60 mg PO QDAY 08/23/23 06/11/24 release alprazolam 0.5 mg tablet 0.5 mg PO BID PRN Anxiety 10/28/23 06/11/24 benazepril 20 mg tablet 20 mg PO QDAY 10/28/23 06/11/24 loperamide 2 mg capsule 2 mg PO QDAY 10/28/23 10/28/23 pantoprazole 40 mg tablet,delayed 40 mg PO QDAY 10/28/23 06/11/24 release apixaban 5 mg tablet (Eliquis) 5 mg PO QDAY 06/11/24 06/11/24 Previous Rx's ?Medication ?Instructions ?Recorded famotidine 20 mg tablet 20 mg PO BID #20 tabs 11/01/23 ondansetron 4 mg disintegrating 4 mg PO Q8H PRN nausea and 02/22/24 tablet vomiting #30 tabs sucralfate 100 mg/mL oral 5 ml PO QID #420 mL 04/10/24 suspension (Carafate) acetaminophen 300 mg-codeine 30 mg 2 tab PO TID PRN pain #20 tabs 07/02/24 tablet cefdinir 300 mg capsule 300 mg PO BID #14 caps 07/02/24 lidocaine HCl 2 % mucosal solution 5 ml PO TIDPC PRN dyspepsia #300 mL 07/02/24 (Lidocaine Viscous) sucralfate 100 mg/mL oral 10 ml PO TID #500 mL 07/02/24 suspension (Carafate) Allergies Allergy/AdvReac Type Severity Reaction Status Date / Time amoxicillin (From Augmentin) Allergy Severe Hives Verified 11/19/24 15:28 aspirin Allergy Severe Abdominal Verified 11/19/24 15:28 Pain ciprofloxacin (From Cipro) Allergy Severe Gastrointestinal Verified 11/19/24 15:28 Upset clavulanic acid (From Allergy Severe Hives Verified 11/19/24 15:28 Augmentin) codeine Allergy Severe Nausea Verified 11/19/24 15:28 fluconazole Allergy Severe Rash Verified 11/19/24 15:28 gabapentin Allergy Severe Abdominal Verified 11/19/24 15:28 Pain ketorolac (From Toradol) Allergy Severe Abdominal Verified 11/19/24 15:28 Pain nalbuphine Allergy Severe Abdominal Verified 11/19/24 15:28 Pain Sulfa (Sulfonamide Allergy Severe Hives Verified 11/19/24 15:28 Antibiotics) tizanidine Allergy Severe Rash Verified 11/19/24 15:28 tramadol Allergy Severe Rash Verified 11/19/24 15:28 Review of Systems Review of Systems Systems Reviewed: All systems reviewed, normal except as documented Past Medical History Past Medical History CARDIAC: Positive Cardiac Disorders, Cardiac Arrhythmia, Atrial Fibrillation, Hypercholesterolemia and Hypertension RESPIRATORY: Positive Asthma, Pneumonia and Sleep Apnea GASTROINTESTINAL: Positive Gastrointestinal Disorders, Gastrointestinal Bleed, Colitis, Ulcerative Colitis, Diverticulitis, Diverticulosis, Ulcer, Irritable Bowel, Obstructive Bowel, Hemorrhoids and Obesity REPRODUCTIVE: Positive Previous Pregnancies MUSCULOSKELETAL: Positive Musculoskeletal Disorders and Arthritis ENT: Positive Cataracts and Ear Infection ENDOCRINE: Positive Diabetes Mellitus Type 2 and Hypothyroidism PSYCHO/SOCIAL: Positive Anxiety OTHER HISTORY: Positive Falls, Blood Transfusions, Anesthesia Reactions, Chicken Pox, Mumps and Clostridium Difficile Family History FAMILY HISTORY: Positive Family Cardiac Disorders Surgical History SURGICAL: Positive Cardiac Surgery, Endocrine Surgery, Thyroidectomy, Abdominal Surgery, Joint Replacement, Hysterectomy and Section Social History SMOKING STATUS: Never smoker SUBSTANCE USE: does not use ALCOHOL: Never ED Exam Narrative Physical exam: GENERAL APPEARANCE: alert and oriented x 4, well-developed, well-nourished, no acute distress VITALS: All vitals were reviewed and the pulse ox is 95% on room air, which is normal according to my interpretation. HEENT: Normocephalic, atraumatic; pupils equal, round, reactive to light; EOMI; mucous membranes pink, moist; oropharynx clear NECK: Supple LUNGS: CTABL; no wheezes, no rales, no rhonchi HEART: Regular rate, regular rhythm; normal S1, S2; no murmurs ABDOMEN: moderately distended; mild hyperactive BS; soft, no tenderness, no guarding, no rebound; no masses, no organomegaly, no hernia BACK: no CVA tenderness EXTREMITIES: atraumatic; no edema NEUROLOGIC: awake; alert and oriented x4; cranial nerves II-XII grossly intact; no focal sensory or motor deficits PSYCHIATRIC: appropriate mood and affect SKIN: warm, dry, normal color; no rashes Course Quality Measures none Orders Category Date Time Status Certified Composites Technician NOW Care 11/21/24 10:12 Active EKG (ED ONLY) *Do not use* NOW Care 11/21/24 10:12 Completed EKG (ED Only) Stat Exams 11/21/24 10:12 Draft XR abdomen series w chest 1V Stat Exams 11/21/24 11:13 Completed B-Type Natriuretic Peptide Stat Lab 11/21/24 10:35 Completed CBC Stat Lab 11/21/24 10:35 Completed Comprehensive Metabolic Panel Stat Lab 11/21/24 10:35 Completed Lipase Stat Lab 11/21/24 10:35 Completed Magnesium Stat Lab 11/21/24 10:35 Completed Troponin I Stat Lab 11/21/24 10:35 Completed Troponin I Stat Lab 11/21/24 15:10 Completed HYDROcodone*/APAP 5/325 [[place] 5/325] Med 11/21/24 11:13 Discontinued 1 tab PO X1 ONE Labetalol Tab [Trandate Tab] Med 11/21/24 14:50 Discontinued 100 mg PO X1 ONE hydrALAZINE HCL [Apresoline] Med 11/21/24 12:55 Discontinued 25 mg PO X1 ONE Vital Signs Vital signs: Vital Signs Temperature 98.3 F 11/21/24 09:30 Pulse Rate 82 11/21/24 09:30 Respiratory Rate 18 11/21/24 09:30 Blood Pressure 194/84 H 11/21/24 09:30 Pulse Oximetry (%) 95 11/21/24 09:30 Oxygen Delivery Method Room Air 11/21/24 09:30 Abdominal Pain MDM MDM Narrative MDM Narrative:: Sandra Ivy am scribing for and in the presence of Dr. Santana. Patient data External records reviewed:: [facility] previous records (Reviewed colonoscopy and endoscopy notes that were both on 10/28/[address] Osuna) and EMS form Clinical information provided by:: patient and EMS Social determinants that could affect healthcare access:: none Patient has the following chronic illnesses:: Diverticulitis, duodenal ulcer, chronic abdominal pain, hypothyroidism, type 2 diabetes, and hypertension. How is presenting disease/condition affected by chronic disease/condition?: exacerbated by Evaluation data The following diagnostics were reviewed and interpreted by me:: lab results and EKG tracing(s) Lab and/or radiology exams considered but not ordered:: none Interpretation Summary: EKG#1: EKG at 1046 hours. Interpreted by me: sinus rhythm, rate 74, Q wave in V1, arched R wave in lead 1 and 2 Medications / Prescriptions Medications or Prescriptions considered but not ordered:: none Medication administrations:: Medication Administration History Discontinued Medications Hydrocodone Bitart/Acetaminophen (Hydrocodone/Apap 5/325 Tablet) 1 tab PO X1 ONE Stop: 11/21/24 11:14 Last Admin: 11/21/24 11:53 Dose: 1 tab Documented By: SHERLYN Hydralazine HCl (Hydralazine Hcl 25 Mg Tablet) 25 mg PO X1 ONE Stop: 11/21/24 12:56 Last Admin: 11/21/24 13:05 Dose: 25 mg Documented By: SHERLYN Labetalol HCl (Labetalol 100 Mg Tablet) 100 mg PO X1 ONE Stop: 11/21/24 14:51 Last Admin: 11/21/24 15:05 Dose: 100 mg Documented By: SHERLYN see above if any Consultations Consultation(s) initiated? (list below): No Diagnosis Differential diagnosis abdominal pain: abdominal pain, diverticulitis, gastroenteritis and small bowel obstruction Most likely diagnosis given after review of the tests above:: Abdominal pain Gastritis Asymptomatic hypertensive urgency Admission Indicated Admission indicated?: not indicated Admission Request Was there a request for admission?: No Disposition Plan Disposition Plan: Discharge Discharge Attestation Discharge Attestation: The patient and all family members were given an opportunity to ask questions and understood the discharge instructions. Discharge instructions specifically effects, indications for sooner follow up or return to the emergency department, and the expected course of current diagnosis. Patient condition: Stable Discharge Plan Plan Patient Disposition: HOME (Self Care) Prescriptions/Referrals Prescriptions/Med Rec: No Action metformin 500 mg Tablet 500 mg PO DAILY acetaminophen 500 mg Tablet 500 mg PO PRN MDD 4 PRN (Reason: Pain) levothyroxine 50 mcg Tablet 50 mcg PO DAILY cholecalciferol (vitamin D3) [Vitamin D3] 25 mcg (1,000 unit) Tablet 25 mcg PO 1XD Align 4 mg Capsule 4 mg PO DAILY duloxetine 60 mg capsule,delayed release(DR/EC) 60 mg PO QDAY Rx Instructions: Takes 80mg in the afternoon loperamide 2 mg capsule 2 mg PO QDAY alprazolam 0.5 mg tablet 0.5 mg PO BID PRN (Reason: Anxiety) Patient Comments: TAKE 1 TABLET BY MOUTH THREE TIMES DAILY NEEDED FOR ANXIETY pantoprazole 40 mg tablet,delayed release (DR/EC) 40 mg PO QDAY Patient Comments: TAKE 1 TABLET BY MOUTH DAILY benazepril 20 mg tablet 20 mg PO QDAY famotidine 20 mg tablet 20 mg PO BID Qty: 20 0RF ondansetron 4 mg tablet,disintegrating 4 mg PO Q8H PRN (Reason: nausea and vomiting) Qty: 30 0RF lidocaine HCl [Lidocaine Viscous] 2 % solution 5 ml PO TIDPC MDD 15 mL PRN (Reason: dyspepsia) Qty: 300 0RF sucralfate [Carafate] 100 mg/mL suspension 10 ml PO TID Qty: 500 0RF Rx Instructions: swish in mouth and swallow; use after food/drink acetaminophen-codeine 300-30 mg tablet 2 tab PO TID MDD 6 PRN (Reason: pain) Qty: 20 0RF cefdinir 300 mg capsule 300 mg PO BID Qty: 14 0RF sucralfate [Carafate] 100 mg/mL suspension 5 ml PO QID Qty: 420 0RF Rx Instructions: swish in mouth and swallow; use after food/drink Eliquis 5 mg Tablet 5 mg PO QDAY Referrals: Tyrone Langford MD [Primary Care Provider] - In 1 week Problem List Clinical Impression: Abdominal pain, Gastritis, Asymptomatic hypertensive urgency Patient/Caregiver Discharge Instructions Education Materials: ED Gastritis (Adult), ED High Blood Pressure ... Print Language: Hungarian Stand Alone Forms: Saadia Award Info., Patient Portal Info Letter
--- NOTE | 2024-11-21 10:12 | EKG_ITS ---
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
[2024-11-21 10:50] LABS: Basophils % (Auto) 0 % (0-2.5); Eosinophils % (Auto) 0 % (0-10); Hematocrit 32.4 % (36.0-46.0); Hemoglobin 9.9 g/dL (12.0-16.0); Immature Granulocytes % (Auto) 0 % (0-0); Immature Granulocytes Auto 0.02 Thou/mm3 (0.00-0.00); Lymphocytes # (Auto) 1.8 Thou/mm3 (1.0-4.8); Lymphocytes % (Auto) 22 % (10-50); Mean Corpuscular HGB Conc 30.6 g/dl (31.0-37.0); Mean Corpuscular Hemoglobin 25.4 pg (25.0-35.0); Mean Corpuscular Volume 83 fL (80-100); Monocytes # (Auto) 0.6 Thou/mm3 (0.0-0.8); Monocytes % (Auto) 8 % (0-12); Neutrophils # (Auto) 5.4 Thou/mm3 (1.8-7.7); Neutrophils % (Auto) 69 % (37-80); Nucleated Red Blood Cell % 0 /100 WBC (0); Platelet Count 360 Thou/mm3 (140-440); RDW Standard Deviation 53.9 fL (36.4-46.3); White Blood Count 7.9 Thou/mm3 (3.6-11.0)
[2024-11-21 11:05] LABS: Alanine Aminotransferase 15 U/L (10-49); Albumin, Serum 4.5 gm/dL (3.4-4.8); Albumin/Globulin Ratio 1.5 (1.2-2.2); Alkaline Phosphatase 85 U/L (46-116); Anion Gap 8 (7-16); Aspartate Amino Transferase 18 U/L (0-34); BUN/Creatinine Ratio 16 Ratio (12-20); Bilirubin,Total 0.2 mg/dL (0.3-1.2); Blood Urea Nitrogen 16 mg/dL (9-23); Calcium 9.4 mg/dL (8.3-10.6); Calcium (Corrected) 9.4 mg/dL (8.5-10.1); Carbon Dioxide 29.8 mMol/L (20.0-31.0); Chloride 100 mMol/L (98-107); Estimated Creatinine Clearance 40.9 mL/min (>60); Glucose 135 mg/dL (74-106); Lipase 26 U/L (12-53); Magnesium 2.3 mg/dL (1.6-2.6); Osmolality,Calculated 278 (275-295); Potassium 4.3 mMol/L (3.4-5.1); Sodium 138 mMol/L (136-145); Total Protein 7.5 gm/dL (5.7-8.2); Troponin I < 0.020 ng/mL (0.0-0.045); eGFR 58 See Note
--- NOTE | 2024-11-21 11:13 | XR_ITS ---
Examination: Abdominal series 3 views including upright PA chest TECHNIQUE: Upright PA chest, AP upright AP supine abdomen total 3 views Exam date and time: November 21, 2024 11:25 AM INDICATIONS: Abdominal pain beginning 2 days ago. FINDINGS: Normal heart size Lungs are clear. Nonobstructive bowel gas pattern. No free air. Right hip bipolar hemiarthroplasty with satisfactory alignment Transpedicular lumbar fusion L4-L5 Moderate left hip osteoarthritis IMPRESSION: Nonobstructive bowel gas pattern
[2024-11-21] MEDS: HYDROcodone/APAP 5/325 TABLET 1 TAB PO (11:53)
[2024-11-21 12:39] LABS: B-Type Natriuretic Peptide 22 pg/mL (0-100)
[2024-11-21] MEDS: hydrALAZINE HCL 25 MG TABLET PO (13:05)
[2024-11-21] MEDS: LABETALOL 100 MG TABLET PO (15:05)
[2024-11-21 15:54] LABS: Troponin I < 0.020 ng/mL (0.0-0.045)
== END 2024-11-21 17:15 | disposition home or self-care (01) ==
PROVIDERS: Emergency Provider Emergency Medicine; PCP Family Medicine
DX: K29.70 Gastritis, unspecified, without bleeding (principal); I16.0 Hypertensive urgency
CPT/HCPCS: 36415; 74022; 80053; 83690; 83735; 83880; 84484; 85025; 93005; 99283; A9270

== ENCOUNTER 2024-12-02 05:21 | Emergency (ER) | payer MEDICARE, BC, SELFPAY ==
[2024-12-02 05:32] VITALS: BMI 28.3
[2024-12-02 05:33] VITALS: BP 203/74; PULSE 72; RESP 19; TEMP 36.6; O2SAT 96
[2024-12-02 05:41] VITALS: PULSE 75; RESP 18; O2SAT 95
[2024-12-02 05:50] VITALS: BP 203/83; PULSE 83; RESP 19; TEMP 36.8; O2SAT 97
--- NOTE | 2024-12-02 06:32 | PD.EDADULT ---
ED General RME/HPI General Chief complaint: General Adult/Misc Complain Stated complaint: weakness Arrival date/time: 12/02/24 05:21 RME / HPI RME / HPI narrative: 79 year old female patient with history of duodenal ulcer disease, chronic abdominal pain, atrial fibrillation, hypertension, diabetes, hypothyroidism presents to the ED for evaluation of feeling near syncope today. States she had a CBD gummy at 01:00 AM today and soon after began to have epigastric abdominal pain accompanied with nausea. States she took a GI cocktail at 04:30 AM and laid back down. States she began to feel very faint and near syncope, prompting calling 911. Denies losing consciousness. Denies fevers, chills, sweats. Denies chest pain, cough, shortness of breath. Patient mentioned she had also taken one CBD gummy earlier in the day for pain. Related Data Home Medications ?Medication ?Instructions ?Recorded ?Confirmed Bifidobacterium infantis 4 mg 4 mg PO DAILY 06/27/23 06/11/24 capsule (Align) acetaminophen 500 mg tablet 500 mg PO PRN PRN Pain 06/27/23 10/28/23 cholecalciferol (vitamin D3) 25 25 mcg PO 1XD 06/27/23 10/28/23 mcg (1,000 unit) tablet (Vitamin D3) levothyroxine 50 mcg tablet 50 mcg PO DAILY 06/27/23 06/11/24 metformin 500 mg tablet 500 mg PO DAILY 06/27/23 06/11/24 duloxetine 60 mg capsule,delayed 60 mg PO QDAY 08/23/23 06/11/24 release alprazolam 0.5 mg tablet 0.5 mg PO BID PRN Anxiety 10/28/23 06/11/24 benazepril 20 mg tablet 20 mg PO QDAY 10/28/23 06/11/24 loperamide 2 mg capsule 2 mg PO QDAY 10/28/23 10/28/23 pantoprazole 40 mg tablet,delayed 40 mg PO QDAY 10/28/23 06/11/24 release apixaban 5 mg tablet (Eliquis) 5 mg PO QDAY 06/11/24 06/11/24 Previous Rx's ?Medication ?Instructions ?Recorded famotidine 20 mg tablet 20 mg PO BID #20 tabs 11/01/23 ondansetron 4 mg disintegrating 4 mg PO Q8H PRN nausea and 02/22/24 tablet vomiting #30 tabs sucralfate 100 mg/mL oral 5 ml PO QID #420 mL 04/10/24 suspension (Carafate) acetaminophen 300 mg-codeine 30 mg 2 tab PO TID PRN pain #20 tabs 07/02/24 tablet cefdinir 300 mg capsule 300 mg PO BID #14 caps 07/02/24 lidocaine HCl 2 % mucosal solution 5 ml PO TIDPC PRN dyspepsia #300 mL 07/02/24 (Lidocaine Viscous) sucralfate 100 mg/mL oral 10 ml PO TID #500 mL 07/02/24 suspension (Carafate) Allergies Allergy/AdvReac Type Severity Reaction Status Date / Time amoxicillin (From Augmentin) Allergy Severe Hives Verified 12/02/24 05:35 aspirin Allergy Severe Abdominal Verified 12/02/24 05:35 Pain ciprofloxacin (From Cipro) Allergy Severe Gastrointestinal Verified 12/02/24 05:35 Upset clavulanic acid (From Allergy Severe Hives Verified 12/02/24 05:35 Augmentin) codeine Allergy Severe Nausea Verified 12/02/24 05:35 fluconazole Allergy Severe Rash Verified 12/02/24 05:35 gabapentin Allergy Severe Abdominal Verified 12/02/24 05:35 Pain ketorolac (From Toradol) Allergy Severe Abdominal Verified 12/02/24 05:35 Pain nalbuphine Allergy Severe Abdominal Verified 12/02/24 05:35 Pain Sulfa (Sulfonamide Allergy Severe Hives Verified 12/02/24 05:35 Antibiotics) tizanidine Allergy Severe Rash Verified 12/02/24 05:35 tramadol Allergy Severe Rash Verified 12/02/24 05:35 Review of Systems Review of Systems Narrative Review of Systems: GEN: No fever, no chills, +feeling faint EYES: No discharge, no pain HEENT: No ear pain, no congestion, no sore throat PULM: No shortness of breath, no cough CV: No chest pain, no palpitations GI: +nausea, no vomiting, no diarrhea, +pain, no constipation : No frequency, no urgency, no dysuria MUSC/SKEL: No joint pain, no back pain SKIN: No rash NEURO: No weakness, no headache Past Medical History Past Medical History CARDIAC: Positive Cardiac Disorders, Cardiac Arrhythmia, Atrial Fibrillation, Hypercholesterolemia and Hypertension RESPIRATORY: Positive Asthma, Pneumonia and Sleep Apnea GASTROINTESTINAL: Positive Gastrointestinal Disorders, Gastrointestinal Bleed, Colitis, Ulcerative Colitis, Diverticulitis, Diverticulosis, Ulcer, Irritable Bowel, Obstructive Bowel, Hemorrhoids and Obesity GENITOURINARY: Positive Kidney Stones REPRODUCTIVE: Positive Previous Pregnancies MUSCULOSKELETAL: Positive Musculoskeletal Disorders and Arthritis ENT: Positive Cataracts and Ear Infection ENDOCRINE: Positive Diabetes Mellitus Type 2 and Hypothyroidism PSYCHO/SOCIAL: Positive Anxiety OTHER HISTORY: Positive Falls, Blood Transfusions, Anesthesia Reactions, Chicken Pox, Mumps and Clostridium Difficile Family History FAMILY HISTORY: Positive Family Cardiac Disorders Surgical History SURGICAL: Positive Cardiac Surgery, Endocrine Surgery, Thyroidectomy, Abdominal Surgery, Joint Replacement, Hysterectomy and Section Social History SMOKING STATUS: Never smoker SUBSTANCE USE: does not use ED Exam Narrative Physical exam: GENERAL APPEARANCE: alert and oriented x 4, well-developed, well-nourished, no acute distress HEENT: Normocephalic, atraumatic; pupils equal, round, reactive to light; EOMI; mucous membranes pink, moist; oropharynx clear NECK: Supple LUNGS: CTABL; no wheezes, no rales, no rhonchi HEART: Regular rate, regular rhythm; normal S1, S2; no murmurs ABDOMEN: non distended; normal BS; soft, no tenderness, no guarding, no rebound; no masses, no organomegaly, no hernia BACK: no CVA tenderness EXTREMITIES: atraumatic; no edema NEUROLOGIC: awake; alert and oriented x4; cranial nerves II-XII grossly intact; no focal sensory or motor deficits PSYCHIATRIC: appropriate mood and affect SKIN: warm, dry, normal color; no rashes Course Quality Measures none Orders Category Date Time Status EKG (ED ONLY) *Do not use* NOW Care 12/02/24 06:43 Completed EKG (ED Only) Stat Exams 12/02/24 06:43 Draft CBC Stat Lab 12/02/24 07:07 Completed Comprehensive Metabolic Panel Stat Lab 12/02/24 07:07 Completed Lipase Stat Lab 12/02/24 07:07 Completed Magnesium Stat Lab 12/02/24 07:07 Completed Troponin I Stat Lab 12/02/24 07:07 Completed Reevaluation(s) Reevaluation #1: Patient remains clinically stable throughout the emergency department visit. We reviewed all the results, analysis, and treatment plans. Patient is amenable to discharge. Strict return precautions were outlined. Time: 08:27 Vital Signs Vital signs: Vital Signs Temperature 97.9 F 12/02/24 05:33 Pulse Rate 72 12/02/24 05:33 Respiratory Rate 19 12/02/24 05:33 Blood Pressure 203/74 H 12/02/24 05:33 Pulse Oximetry (%) 96 12/02/24 05:33 Oxygen Delivery Method Room Air 12/02/24 05:33 Pulse ox is 96% on room air which is adequate. Discharge Plan Plan Patient Disposition: HOME (Self Care) Prescriptions/Referrals Prescriptions/Med Rec: No Action metformin 500 mg Tablet 500 mg PO DAILY acetaminophen 500 mg Tablet 500 mg PO PRN MDD 4 PRN (Reason: Pain) levothyroxine 50 mcg Tablet 50 mcg PO DAILY cholecalciferol (vitamin D3) [Vitamin D3] 25 mcg (1,000 unit) Tablet 25 mcg PO 1XD Align 4 mg Capsule 4 mg PO DAILY duloxetine 60 mg capsule,delayed release(DR/EC) 60 mg PO QDAY Rx Instructions: Takes 80mg in the afternoon loperamide 2 mg capsule 2 mg PO QDAY alprazolam 0.5 mg tablet 0.5 mg PO BID PRN (Reason: Anxiety) Patient Comments: TAKE 1 TABLET BY MOUTH THREE TIMES DAILY NEEDED FOR ANXIETY pantoprazole 40 mg tablet,delayed release (DR/EC) 40 mg PO QDAY Patient Comments: TAKE 1 TABLET BY MOUTH DAILY benazepril 20 mg tablet 20 mg PO QDAY famotidine 20 mg tablet 20 mg PO BID Qty: 20 0RF ondansetron 4 mg tablet,disintegrating 4 mg PO Q8H PRN (Reason: nausea and vomiting) Qty: 30 0RF lidocaine HCl [Lidocaine Viscous] 2 % solution 5 ml PO TIDPC MDD 15 mL PRN (Reason: dyspepsia) Qty: 300 0RF sucralfate [Carafate] 100 mg/mL suspension 10 ml PO TID Qty: 500 0RF Rx Instructions: swish in mouth and swallow; use after food/drink acetaminophen-codeine 300-30 mg tablet 2 tab PO TID MDD 6 PRN (Reason: pain) Qty: 20 0RF cefdinir 300 mg capsule 300 mg PO BID Qty: 14 0RF sucralfate [Carafate] 100 mg/mL suspension 5 ml PO QID Qty: 420 0RF Rx Instructions: swish in mouth and swallow; use after food/drink Eliquis 5 mg Tablet 5 mg PO QDAY Referrals: Tyrone Langford MD [Primary Care Provider] - In 1 week Problem List Clinical Impression: Lightheadedness Patient/Caregiver Discharge Instructions Education Materials: Dizziness Balance Probs Fainting Print Language: Bolivian Stand Alone Forms: [facility] Award Info., Patient Portal Info Letter MDM Patient Acuity High Acuity (complete MDM) Narrative: Mckenzie Ivy am scribing for and in the presence of Dr. Santana. Clinical Information Provided by: patient and EMS Medical Records [facility] and [facility] Meds/Rx considered, not ordered None Labs/Rad/Tests considered, not ordered None Chronic Illness/Social Conditions which may negatively complicate care or outcome(s)-explain: None or not applicable EKG EKG Interpretation(s): EKG @ 07:05 am. Sinus rhythm, rate 77, Q-waves in V1 V2 and lead III. Labs Labs: Interpreted by me Imaging Imaging interpretation: none or see narrative above Diagnosis Diagnoses ruled out: Lightheadedness
--- NOTE | 2024-12-02 06:43 | EKG_ITS ---
[facility] Test Date: 2024-12-02 Pat Name: MARIBEL ALAMO Department: Room: - Gender: Female Financial Intern: : 1945 Requested By: Jenniffer Mukherjee Order Number: [id number] Reading MD: Jenniffer Mukherjee Measurements Intervals [place] Rate: 77 P: 109 TN: 141 QRS: 11 QRSD: 109 T: 57 QT: 394 QTc: 446 Interpretive Statements SINUS RHYTHM SEPTAL MYOCARDIAL INFARCTION , OF INDETERMINATE AGE [40+ ms Q WAVE IN V1/V2] Compared to ECG 11/21/2024 10:46:01 No significant changes /store/S0/[id number].pdf
[2024-12-02 07:19] LABS: Basophils # (Auto) 0.1 Thou/mm3 (0.0-0.2); Basophils % (Auto) 1 % (0-2.5); Eosinophils # (Auto) 0.1 Thou/mm3 (0.0-0.5); Eosinophils % (Auto) 1 % (0-10); Hematocrit 32.2 % (36.0-46.0); Hemoglobin 10.1 g/dL (12.0-16.0); Immature Granulocytes % (Auto) 0 % (0-0); Immature Granulocytes Auto 0.03 Thou/mm3 (0.00-0.00); Lymphocytes # (Auto) 1.3 Thou/mm3 (1.0-4.8); Lymphocytes % (Auto) 19 % (10-50); Mean Corpuscular HGB Conc 31.4 g/dl (31.0-37.0); Mean Corpuscular Hemoglobin 25.3 pg (25.0-35.0); Mean Corpuscular Volume 81 fL (80-100); Monocytes # (Auto) 0.8 Thou/mm3 (0.0-0.8); Monocytes % (Auto) 11 % (0-12); Neutrophils # (Auto) 4.8 Thou/mm3 (1.8-7.7); Neutrophils % (Auto) 68 % (37-80); Nucleated Red Blood Cell % 0 /100 WBC (0); Platelet Count 369 Thou/mm3 (140-440); Red Blood Count 3.99 Miln/mm3 (4.00-5.20)
[2024-12-02 07:39] LABS: Alanine Aminotransferase 14 U/L (10-49); Albumin, Serum 4.4 gm/dL (3.4-4.8); Albumin/Globulin Ratio 1.4 (1.2-2.2); Alkaline Phosphatase 82 U/L (46-116); Anion Gap 9 (7-16); Aspartate Amino Transferase 14 U/L (0-34); BUN/Creatinine Ratio 19 Ratio (12-20); Bilirubin,Total 0.2 mg/dL (0.3-1.2); Blood Urea Nitrogen 19 mg/dL (9-23); Calcium 9.6 mg/dL (8.3-10.6); Calcium (Corrected) 9.6 mg/dL (8.5-10.1); Chloride 101 mMol/L (98-107); Estimated Creatinine Clearance 45.9 mL/min (>60); Globulin 3.1 gm/dL (2.3-3.5); Glucose 168 mg/dL (74-106); Lipase 27 U/L (12-53); Magnesium 1.8 mg/dL (1.6-2.6); Osmolality,Calculated 278 (275-295); Potassium 4.1 mMol/L (3.4-5.1); Sodium 136 mMol/L (136-145); Total Protein 7.5 gm/dL (5.7-8.2); Troponin I < 0.020 ng/mL (0.0-0.045); eGFR 58 See Note
[2024-12-02 08:23] VITALS: BP 188/78; PULSE 80; RESP 16; TEMP 36.7; O2SAT 97
[2024-12-02] MEDS: ACETAMINOPHEN 325 MG TABLET 650 MG PO (10:23)
[2024-12-02 10:32] VITALS: BP 187/88; PULSE 84; RESP 12; TEMP 37.1; O2SAT 97
== END 2024-12-02 10:35 | disposition home or self-care (01) ==
PROVIDERS: Emergency Provider Emergency Medicine; PCP Family Medicine
DX: R42 Dizziness and giddiness (principal); E03.9 Hypothyroidism, unspecified; E11.9 Type 2 diabetes mellitus without complications; I10 Essential (primary) hypertension; I48.91 Unspecified atrial fibrillation
CPT/HCPCS: 36415; 80053; 83690; 83735; 84484; 85025; 93005; 99283; A9270

== ENCOUNTER 2024-12-05 19:10 | Emergency (ER) | payer MEDICARE, BC, SELFPAY ==
[2024-12-05 19:11] VITALS: BMI 31.2
--- NOTE | 2024-12-05 19:32 | PD.EDRME ---
Rapid Medical Screening Exam RME Arrival date/time: 12/05/24 19:10 Chief Complaint: Abdominal Pain Time Seen by Provider: 12/05/24 19:30 Vital signs: Vital Signs Temperature 98.8 F 12/05/24 19:33 Pulse Rate 84 12/05/24 19:33 Respiratory Rate 20 12/05/24 19:33 Blood Pressure 179/72 H 12/05/24 19:33 Pulse Oximetry (%) 95 12/05/24 19:33 Oxygen Delivery Method Room Air 12/05/24 19:33 E Narrative: Epigastric pain that initiated overnight. Its my duodenal ulcer and I know it's related to stress. I had a friend who yesterday. Patient took CBD gummies at 1300 and 1500 without relief.
[2024-12-05 19:33] VITALS: BP 179/72; PULSE 84; RESP 20; TEMP 37.1; O2SAT 95
[2024-12-05 19:58] LABS: Basophils % (Auto) 0 % (0-2.5); Eosinophils % (Auto) 0 % (0-10); Hematocrit 32.9 % (36.0-46.0); Hemoglobin 10.2 g/dL (12.0-16.0); Immature Granulocytes % (Auto) 0 % (0-0); Immature Granulocytes Auto 0.03 Thou/mm3 (0.00-0.00); Lymphocytes # (Auto) 2.9 Thou/mm3 (1.0-4.8); Lymphocytes % (Auto) 31 % (10-50); Mean Corpuscular Hemoglobin 25.2 pg (25.0-35.0); Mean Corpuscular Volume 81 fL (80-100); Monocytes % (Auto) 11 % (0-12); Neutrophils # (Auto) 5.3 Thou/mm3 (1.8-7.7); Neutrophils % (Auto) 57 % (37-80); Nucleated Red Blood Cell % 0 /100 WBC (0); Platelet Count 402 Thou/mm3 (140-440); RDW Standard Deviation 51.5 fL (36.4-46.3); Red Blood Count 4.04 Miln/mm3 (4.00-5.20); White Blood Count 9.3 Thou/mm3 (3.6-11.0)
[2024-12-05 19:58] LABS: Collection Type, Urine Clean Catch
[2024-12-05 20:26] LABS: Bacteria,Urine Rare; Bilirubin,Urine Negative (Negative); Blood,Urine Negative (Negative); Clarity,Urine Clear (Clear/Hazy); Color,Urine Lt-Yellow (Lt Yel-Yel); Glucose, Urine Negative (Negative); Ketones,Urine Negative (Negative); Leukocyte Esterase,Urine Positive (Negative); Nitrite,Urine Negative (Negative); PH,Urine 6.5 (5.0-7.0); Protein,Urine Negative (Neg - Trace); RBC,Urine 2 /hpf (0-3); Specific Gravity,Urine 1.022 (1.001-1.035); Squamous Epithelial Cell,Urine 5 /hpf (0-5); Urobilinogen,Urine Negative mg/dL (0.0-1.0); WBC,Urine 12 /hpf (0-5)
[2024-12-05 20:29] LABS: Alanine Aminotransferase 15 U/L (10-49); Albumin, Serum 4.6 gm/dL (3.4-4.8); Albumin/Globulin Ratio 1.5 (1.2-2.2); Alkaline Phosphatase 86 U/L (46-116); Anion Gap 8 (7-16); Aspartate Amino Transferase 17 U/L (0-34); BUN/Creatinine Ratio 15 Ratio (12-20); Bilirubin,Total 0.2 mg/dL (0.3-1.2); Blood Urea Nitrogen 18 mg/dL (9-23); Calcium 9.4 mg/dL (8.3-10.6); Calcium (Corrected) 9.4 mg/dL (8.5-10.1); Carbon Dioxide 26.7 mMol/L (20.0-31.0); Chloride 104 mMol/L (98-107); Creatinine (Component) 1.2 mg/dL (0.6-1.3); Estimated Creatinine Clearance 34.4 mL/min (>60); Glucose 166 mg/dL (74-106); Lipase 31 U/L (12-53); Osmolality,Calculated 283 (275-295); Potassium 4.1 mMol/L (3.4-5.1); Sodium 139 mMol/L (136-145); Total Protein 7.6 gm/dL (5.7-8.2); Troponin I < 0.002 ng/mL (0.0-0.045); eGFR 46 See Note
[2024-12-05] MEDS: HYDROcodone/APAP 7.5/325 TABLET 1 TAB PO (21:37)
--- NOTE | 2024-12-05 22:11 | PC.NURSE ---
PT INFORMED ME THAT SHE IS LEAVING , SHE IS GOING HOME.
== END 2024-12-05 22:12 | disposition left against medical advice (07) ==
LOC: SERX 19:43
PROVIDERS: Physician Assistant; Emergency Provider Emergency Medicine; PCP Family Medicine
DX: R10.9 Unspecified abdominal pain (principal); R94.31 Abnormal electrocardiogram [ECG] [EKG]; Z53.29 Procedure and treatment not carried out because of patient's decision for other reasons
CPT/HCPCS: 36415; 80053; 81001; 83690; 84484; 85025; 93005; 99281; A9270

== ENCOUNTER 2024-12-06 00:54 | Emergency (ER) | payer MEDICARE, BC, SELFPAY ==
[2024-12-06 01:07] VITALS: BP 172/90; PULSE 87; RESP 20; TEMP 36.5; O2SAT 96
--- NOTE | 2024-12-06 01:10 | PD.EDRME ---
Rapid Medical Screening Exam RME Arrival date/time: 12/06/24 00:54 Chief Complaint: General Adult/Misc Complain Vital signs: Vital Signs Temperature 97.7 F 12/06/24 01:07 Pulse Rate 87 12/06/24 01:07 Respiratory Rate 20 12/06/24 01:07 Blood Pressure 172/90 H 12/06/24 01:07 Pulse Oximetry (%) 96 12/06/24 01:07 Oxygen Delivery Method Room Air 12/06/24 01:07 Vital signs reviewed by provider: Keira SALDANA Narrative: 79-year-old female presents to the ED with complaint of being shaky having a drug reaction taking [place] today. Patient has been taking CBD gummy bears since this last Thursday for stomach ulcer that she has.
--- NOTE | 2024-12-06 01:32 | PD.EDADULT ---
ED General RME/HPI General Chief complaint: General Adult/Misc Complain Stated complaint: SHAKY Time Seen by Provider: 12/06/24 01:25 Source: patient Arrival date/time: 12/06/24 00:54 Mode of arrival: ambulatory Limitations: no limitations RME / HPI RME / HPI narrative: 79-year-old female presents to the ED with complaint of being shaky having a drug reaction taking [place] today. Patient has been taking CBD gummy bears since this last Thursday for stomach ulcer that she has. Onset (ago): day(s) (3 DAYS) Location: face Severity: mild Severity scale (1-10): 3 Consistency: constant Relieving factors: none Associated symptoms: malaise Related Data Home Medications ?Medication ?Instructions ?Recorded ?Confirmed Bifidobacterium infantis 4 mg 4 mg PO DAILY 06/27/23 06/11/24 capsule (Align (B.infantis)) acetaminophen 500 mg tablet 500 mg PO PRN PRN Pain 06/27/23 10/28/23 cholecalciferol (vitamin D3) 25 25 mcg PO 1XD 06/27/23 10/28/23 mcg (1,000 unit) tablet (Vitamin D3) levothyroxine 50 mcg tablet 50 mcg PO DAILY 06/27/23 06/11/24 metformin 500 mg tablet 500 mg PO DAILY 06/27/23 06/11/24 duloxetine 60 mg capsule,delayed 60 mg PO QDAY 08/23/23 06/11/24 release alprazolam 0.5 mg tablet 0.5 mg PO BID PRN Anxiety 10/28/23 06/11/24 benazepril 20 mg tablet 20 mg PO QDAY 10/28/23 06/11/24 loperamide 2 mg capsule 2 mg PO QDAY 10/28/23 10/28/23 pantoprazole 40 mg tablet,delayed 40 mg PO QDAY 10/28/23 06/11/24 release apixaban 5 mg tablet (Eliquis) 5 mg PO QDAY 06/11/24 06/11/24 Previous Rx's ?Medication ?Instructions ?Recorded famotidine 20 mg tablet 20 mg PO BID #20 tabs 11/01/23 ondansetron 4 mg disintegrating 4 mg PO Q8H PRN nausea and 02/22/24 tablet vomiting #30 tabs sucralfate 100 mg/mL oral 5 ml PO QID #420 mL 04/10/24 suspension (Carafate) acetaminophen 300 mg-codeine 30 mg 2 tab PO TID PRN pain #20 tabs 07/02/24 tablet cefdinir 300 mg capsule 300 mg PO BID #14 caps 07/02/24 lidocaine HCl 2 % mucosal solution 5 ml PO TIDPC PRN dyspepsia #300 mL 07/02/24 (Lidocaine Viscous) sucralfate 100 mg/mL oral 10 ml PO TID #500 mL 07/02/24 suspension (Carafate) Allergies Allergy/AdvReac Type Severity Reaction Status Date / Time amoxicillin (From Augmentin) Allergy Severe Hives Verified 12/06/24 00:55 aspirin Allergy Severe Abdominal Verified 12/06/24 00:55 Pain ciprofloxacin (From Cipro) Allergy Severe Gastrointestinal Verified 12/06/24 00:55 Upset clavulanic acid (From Allergy Severe Hives Verified 12/06/24 00:55 Augmentin) codeine Allergy Severe Nausea Verified 12/06/24 00:55 fluconazole Allergy Severe Rash Verified 12/06/24 00:55 gabapentin Allergy Severe Abdominal Verified 12/06/24 00:55 Pain ketorolac (From Toradol) Allergy Severe Abdominal Verified 12/06/24 00:55 Pain nalbuphine Allergy Severe Abdominal Verified 12/06/24 00:55 Pain Sulfa (Sulfonamide Allergy Severe Hives Verified 12/06/24 00:55 Antibiotics) tizanidine Allergy Severe Rash Verified 12/06/24 00:55 tramadol Allergy Severe Rash Verified 12/06/24 00:55 Review of Systems Review of Systems Systems Reviewed: All systems reviewed, normal except as documented Constitutional Constitutional: Reports system reviewed and no additional complaints, except as documented ENT Ears, Nose, Mouth, and Throat: Reports system reviewed and no additional complaints, except as documented Respiratory Respiratory: Reports system reviewed and no additional complaints, except as documented Musculoskeletal Musculoskeletal: Reports system reviewed and no additional complaints, except as documented Integumentary/Breasts Skin/Breast: Reports system reviewed and no additional complaints, except as documented ED Exam General Limitations: Present no limitations General appearance: Present alert and in no apparent distress Eye Eye exam: Present normal appearance and EOMI ENT ENT exam: Present normal exam Neck Neck exam: Present normal inspection Chest Chest inspection: Present normal inspection Abdominal Exam Abdominal exam: Present soft Extremities Exam Extremities exam: Present normal inspection and full ROM Back Exam Back exam: Present normal inspection and full ROM Neurological Exam Neurological exam: Present alert and oriented X3 Psychiatric Psychiatric exam: Present normal affect and normal mood Skin Skin exam: Present warm and dry Course Course Course Narrative: Patient will be discharged IN NO APPARENT DISTRESS. Quality Measures none Orders Category Date Time Status Glucose [Bedside Blood Glucose] NOW Care 12/06/24 01:19 Active Vital Signs Vital signs: Vital Signs Temperature 97.7 F 12/06/24 01:07 Pulse Rate 87 12/06/24 01:07 Respiratory Rate 20 12/06/24 01:07 Blood Pressure 172/90 H 12/06/24 01:07 Pulse Oximetry (%) 96 12/06/24 01:07 Oxygen Delivery Method Room Air 12/06/24 01:07 Sats are 96% room air. Discharge Plan Plan Patient Disposition: HOME (Self Care) Disposition Comment: DischargeStress Patient condition on transfer: Stable Prescriptions/Referrals Prescriptions/Med Rec: No Action metformin 500 mg Tablet 500 mg PO DAILY acetaminophen 500 mg Tablet 500 mg PO PRN MDD 4 PRN (Reason: Pain) levothyroxine 50 mcg Tablet 50 mcg PO DAILY cholecalciferol (vitamin D3) [Vitamin D3] 25 mcg (1,000 unit) Tablet 25 mcg PO 1XD Align (B.infantis) 4 mg Capsule 4 mg PO DAILY duloxetine 60 mg capsule,delayed release(DR/EC) 60 mg PO QDAY Rx Instructions: Takes 80mg in the afternoon loperamide 2 mg capsule 2 mg PO QDAY alprazolam 0.5 mg tablet 0.5 mg PO BID PRN (Reason: Anxiety) Patient Comments: TAKE 1 TABLET BY MOUTH THREE TIMES DAILY NEEDED FOR ANXIETY pantoprazole 40 mg tablet,delayed release (DR/EC) 40 mg PO QDAY Patient Comments: TAKE 1 TABLET BY MOUTH DAILY benazepril 20 mg tablet 20 mg PO QDAY famotidine 20 mg tablet 20 mg PO BID Qty: 20 0RF ondansetron 4 mg tablet,disintegrating 4 mg PO Q8H PRN (Reason: nausea and vomiting) Qty: 30 0RF lidocaine HCl [Lidocaine Viscous] 2 % solution 5 ml PO TIDPC MDD 15 mL PRN (Reason: dyspepsia) Qty: 300 0RF sucralfate [Carafate] 100 mg/mL suspension 10 ml PO TID Qty: 500 0RF Rx Instructions: swish in mouth and swallow; use after food/drink acetaminophen-codeine 300-30 mg tablet 2 tab PO TID MDD 6 PRN (Reason: pain) Qty: 20 0RF cefdinir 300 mg capsule 300 mg PO BID Qty: 14 0RF sucralfate [Carafate] 100 mg/mL suspension 5 ml PO QID Qty: 420 0RF Rx Instructions: swish in mouth and swallow; use after food/drink Eliquis 5 mg Tablet 5 mg PO QDAY Problem List Clinical Impression: Lightheadedness Patient/Caregiver Discharge Instructions Print Language: Kazakh PA/ASSISTANT SITE MANAGER Supervising Physician PA/ASSISTANT SITE MANAGER Supervising Physician: RED IVEY Clinical Information Provided by: patient Medical Records reviewed other Meds/Rx considered, not ordered None Labs/Rad/Tests considered, not ordered None Chronic Illness/Social Conditions which may negatively complicate care or outcome(s)-explain: None or not applicable and Homeless EKG EKG not done Labs Labs: none Imaging Imaging Interpretation(s): NA Medication Administration(s) none Diagnosis Differential Diagnosis ED Complaint MDM: RUBEN
[2024-12-06 02:18] VITALS: RESP 16
== END 2024-12-06 02:19 | disposition home or self-care (01) ==
LOC: SERX 01:56
PROVIDERS: Emergency Provider Emergency Medicine; PCP Family Medicine
DX: R42 Dizziness and giddiness (principal)
CPT/HCPCS: 99282

== ENCOUNTER 2024-12-06 16:34 | Emergency (ER) | payer MEDICARE, BC, SELFPAY ==
--- NOTE | 2024-12-06 16:37 | PD.EDABDPN ---
ED Abdominal Pain RME/HPI General Chief Complaint: Abdominal Pain Stated complaint: ABDOMINAL PAIN Time seen by provider: 12/06/24 16:37 Arrival date/time: 12/06/24 16:34 RME / HPI RME / HPI narrative: DR. CASTELLON MAIN ED EVALUATION: 79 year old female with past medical history significant for duodenal ulcer disease, chronic abdominal pain, atrial fibrillation, hypertension, diabetes, hypothyroidism presents to the Emergency Department [facility] with complaint of abdominal pain again 2 hours ago, chronic problem was seen just yesterday for the same pain. EMS states the patient took a GI cocktail and Xanax to alleviate her pain and after felt light-headed. Patient also used CBD gummies for pain as well. Denies any alcohol use. Denies any weight loss or gain. No other symptoms reported at this time. Related Data Home Medications ?Medication ?Instructions ?Recorded ?Confirmed Bifidobacterium infantis 4 mg 4 mg PO DAILY 06/27/23 06/11/24 capsule (Align (B.infantis)) acetaminophen 500 mg tablet 500 mg PO PRN PRN Pain 06/27/23 10/28/23 cholecalciferol (vitamin D3) 25 25 mcg PO 1XD 06/27/23 10/28/23 mcg (1,000 unit) tablet (Vitamin D3) levothyroxine 50 mcg tablet 50 mcg PO DAILY 06/27/23 06/11/24 metformin 500 mg tablet 500 mg PO DAILY 06/27/23 06/11/24 duloxetine 60 mg capsule,delayed 60 mg PO QDAY 08/23/23 06/11/24 release alprazolam 0.5 mg tablet 0.5 mg PO BID PRN Anxiety 10/28/23 06/11/24 benazepril 20 mg tablet 20 mg PO QDAY 10/28/23 06/11/24 loperamide 2 mg capsule 2 mg PO QDAY 10/28/23 10/28/23 pantoprazole 40 mg tablet,delayed 40 mg PO QDAY 10/28/23 06/11/24 release apixaban 5 mg tablet (Eliquis) 5 mg PO QDAY 06/11/24 06/11/24 Previous Rx's ?Medication ?Instructions ?Recorded famotidine 20 mg tablet 20 mg PO BID #20 tabs 11/01/23 ondansetron 4 mg disintegrating 4 mg PO Q8H PRN nausea and 02/22/24 tablet vomiting #30 tabs sucralfate 100 mg/mL oral 5 ml PO QID #420 mL 04/10/24 suspension (Carafate) acetaminophen 300 mg-codeine 30 mg 2 tab PO TID PRN pain #20 tabs 07/02/24 tablet cefdinir 300 mg capsule 300 mg PO BID #14 caps 07/02/24 lidocaine HCl 2 % mucosal solution 5 ml PO TIDPC PRN dyspepsia #300 mL 07/02/24 (Lidocaine Viscous) sucralfate 100 mg/mL oral 10 ml PO TID #500 mL 07/02/24 suspension (Carafate) Allergies Allergy/AdvReac Type Severity Reaction Status Date / Time amoxicillin (From Augmentin) Allergy Severe Hives Verified 12/06/24 00:55 aspirin Allergy Severe Abdominal Verified 12/06/24 00:55 Pain ciprofloxacin (From Cipro) Allergy Severe Gastrointestinal Verified 12/06/24 00:55 Upset clavulanic acid (From Allergy Severe Hives Verified 12/06/24 00:55 Augmentin) codeine Allergy Severe Nausea Verified 12/06/24 00:55 fluconazole Allergy Severe Rash Verified 12/06/24 00:55 gabapentin Allergy Severe Abdominal Verified 12/06/24 00:55 Pain ketorolac (From Toradol) Allergy Severe Abdominal Verified 12/06/24 00:55 Pain nalbuphine Allergy Severe Abdominal Verified 12/06/24 00:55 Pain Sulfa (Sulfonamide Allergy Severe Hives Verified 12/06/24 00:55 Antibiotics) tizanidine Allergy Severe Rash Verified 12/06/24 00:55 tramadol Allergy Severe Rash Verified 12/06/24 00:55 Review of Systems Review of Systems Systems Reviewed: All systems reviewed, normal except as documented Narrative Review of Systems: Constitutional: POSITIVES: light-headedness; DENIES: fevers; Eyes: DENIES: loss of vision; Head/Ear/Nose: DENIES: loss of hearing. Throat: DENIES: dysphagia. Cardiovascular: DENIES: chest pain, dyspnea, or syncope. Respiratory: DENIES: shortness of breath; Gastrointestinal: POSITIVES: abdominal pain; DENIES: rectal bleeding or melena. Genitourinary: DENIES: dysuria (painful or difficult urination); Musculoskeletal: DENIES: arthralgia (pain in a joint); Skin: DENIES: rash; Neurological: DENIES: loss of function or movement; Psychiatric: DENIES: recent major life stressor, emotional problem, illicit drug use or abuse; Endocrinology: DENIES: weight change,; Hematologic/Lymphatic: DENIES: abnormal bruising. Allergic/Immunologic: DENIES: urticaria (hives). Past Medical History Past Medical History CARDIAC: Positive Cardiac Disorders, Cardiac Arrhythmia, Atrial Fibrillation, Hypercholesterolemia and Hypertension RESPIRATORY: Positive Asthma, Pneumonia and Sleep Apnea GASTROINTESTINAL: Positive Gastrointestinal Disorders, Gastrointestinal Bleed, Colitis, Ulcerative Colitis, Diverticulitis, Diverticulosis, Ulcer, Irritable Bowel, Obstructive Bowel, Hemorrhoids and Obesity GENITOURINARY: Positive Kidney Stones REPRODUCTIVE: Positive Previous Pregnancies MUSCULOSKELETAL: Positive Musculoskeletal Disorders and Arthritis ENT: Positive Cataracts and Ear Infection ENDOCRINE: Positive Diabetes Mellitus Type 2 and Hypothyroidism PSYCHO/SOCIAL: Positive Anxiety OTHER HISTORY: Positive Falls, Blood Transfusions, Anesthesia Reactions, Chicken Pox, Mumps and Clostridium Difficile Family History FAMILY HISTORY: Positive Family Cardiac Disorders Surgical History SURGICAL: Positive Cardiac Surgery, Endocrine Surgery, Thyroidectomy, Abdominal Surgery, Joint Replacement, Hysterectomy and Section Social History SMOKING STATUS: Never smoker SUBSTANCE USE: does not use ALCOHOL: Never ED Exam Narrative Physical exam: Physical Exam:? General:?? ? Stuttering speech at times and appears anxious. Otherwise: The vital signs were reviewed. ? ? The patient is non-toxic, in no apparent distress and appears healthy with a patent airway, no respiratory distress and has no apparent circulatory problems. Head & Scalp:?? ? Normocephalic, atraumatic. Face:?? ? Appears normal and is without lesions, deformity. Ears:??? Left external pinna appears normal. ? ? Right external pinna appears normal. Eyes:?? ? The sclera is anicteric.? No obvious photophobia. ? ? The Left and Right Orbit/Lid/Conjunctiva appears normal without swelling, discoloration or injection. Nose: ? ? The nose is without deformity, discharge or tenderness; Throat: ? ? Appears normal.? The mucous membranes are pink and moist without exudates, redness or mass seen.? The tongue appears normal. Neck: The neck is supple and no apparent mass or adenopathy. Chest: The chest wall is normal in size and symmetry and has no chest wall tenderness or crepitus. ? ? The patient displays normal ventilator effort without retractions, accessory muscle use and has adequate air movement bilaterally with no wheezes and no rales. ? Cardiovascular: Regular rate and rhythm; No murmurs, rubs, or gallops; Gastrointestinal: Soft belly. The abdomen appears normal.? No obvious hernias or mass. The abdomen is soft and benign, non-distended, with no pain, no guarding and no rebound tenderness.? Bowel sounds are present and normal sounding.? No CVA tenderness. Genitourinary: Back/Spine: Extremities/Musculoskeletal/lymphatic:? ? ? The bilateral upper and lower extremities are warm. There is no evidence of arterial? insufficiency. There is no evidence of venous insufficiency/edema. The patient spontaneously moves bilateral upper and lower extremities with no pain and no limitation of movement.? There is no apparent, injury or trauma. Skin:? The skin is warm, dry and intact.? No rashes. No petechia. No purpura. No abnormal bruising.? The color is appropriate with no cyanosis. Mental status/Psychiatric: Mental status is appropriate for age. The patient has no apparent delusions, visual hallucinations, no apparent audible hallucinations. The patient has no apparent suicidal thoughts/ideation and no apparent homicidal thoughts/ideation. Neurological:? The patient is awake, alert, interactive, cordial, cooperative and is oriented to name and situation. The patient follows commands and answers historical question with no impairment.?? There is no visual disturbance apparent.? The pupils are equal and reactive bilaterally with normal eye movements and no diplopia The bilateral upper and lower extremities have normal strength, normal range of motion and normal functioning. The gait, station and balance appear to be at baseline as patient is able to stand and walk from the ambulance gurney with minimal assistance and normally requires a walker at home. Course Quality Measures none Orders Category Date Time Status Drug Screen,Urine Stat Lab 12/06/24 16:55 Ordered Vital Signs Vital signs: Vital Signs Temperature 98.0 F 12/06/24 16:42 Pulse Rate 95 12/06/24 16:42 Respiratory Rate 18 12/06/24 16:42 Blood Pressure 162/74 H 12/06/24 16:42 Pulse Oximetry (%) 98 12/06/24 16:42 Oxygen Delivery Method Room Air 12/06/24 16:42 Abdominal Pain MDM MDM Narrative MDM Narrative:: I, Sandra Finley, am scribing for and in the presence of Dr. Castellon. I reviewed the medical records as this patient has been here 3 times in the last week and is a frequent flyer with chronic abdominal pain. Today she took a Xanax had a workup here in the ER and was sent home. Clinically her abdomen is soft and benign on evaluation in the ambulance bay. Patient does have stuttering speech and somewhat anxious. Patient admits to taking Xanax earlier today has been using edibles in the past 2448 hrs. and evidently got some hydrocodone for pain somewhere. Clinically the patient was able to stand and walk with minimal assistance but she normally requires a walker and presumably is at her baseline. Patient actually wants to go home despite being told she needs to come here after she called to do her doctor telling her doctor that she was weak and having abdominal or all ulcer pain. She has had several sets of labs done in the last week and there is no significant abnormality on review of all those. I am not certain more labs are going to change anything. I contacted her PMD Dr. Patel to do discussed the case at length and as we both know this patient quite well. Doctors to do states the patient should not be taking opioids even though the patient says she got a dose of hydrocodone. And she is obviously mixing drugs with Xanax and possibly edibles causing her mental status to be just a little loopy today. Note her abdomen is soft and benign she is able to stand and walk and we can get a reliable friend or family to be with her the next 06 to 12 hrs. and then we can discharge her home. Patient data External records reviewed:: EMS form Clinical information provided by:: patient and EMS Social determinants that could affect healthcare access:: substance use (marijuana) Patient has the following chronic illnesses:: duodenal ulcer disease, chronic abdominal pain, atrial fibrillation, hypertension, diabetes, hypothyroidism How is presenting disease/condition affected by chronic disease/condition?: exacerbated by Evaluation data The following diagnostics were reviewed and interpreted by me:: lab results Lab and/or radiology exams considered but not ordered:: none Interpretation Summary: See above under MDM narrative. Medications / Prescriptions Medications or Prescriptions considered but not ordered:: none Medication administrations:: see above if any Consultations Consultation(s) initiated? (list below): No Diagnosis Differential diagnosis abdominal pain: abdominal pain and other (GERD, gastritis) Most likely diagnosis given after review of the tests above:: Chronic abdominal pain Polypharmacy Anxiety disorder Admission Indicated Admission indicated?: not indicated Admission Request Was there a request for admission?: No Disposition Plan Disposition Plan: Discharge Discharge Attestation Discharge Attestation: The patient and all family members were given an opportunity to ask questions and understood the discharge instructions. Discharge instructions specifically effects, indications for sooner follow up or return to the emergency department, and the expected course of current diagnosis. Patient condition: Stable Discharge Plan Plan Patient Disposition: HOME (Self Care) Prescriptions/Referrals Prescriptions/Med Rec: No Action metformin 500 mg Tablet 500 mg PO DAILY acetaminophen 500 mg Tablet 500 mg PO PRN MDD 4 PRN (Reason: Pain) levothyroxine 50 mcg Tablet 50 mcg PO DAILY cholecalciferol (vitamin D3) [Vitamin D3] 25 mcg (1,000 unit) Tablet 25 mcg PO 1XD Align (B.infantis) 4 mg Capsule 4 mg PO DAILY duloxetine 60 mg capsule,delayed release(DR/EC) 60 mg PO QDAY Rx Instructions: Takes 80mg in the afternoon loperamide 2 mg capsule 2 mg PO QDAY alprazolam 0.5 mg tablet 0.5 mg PO BID PRN (Reason: Anxiety) Patient Comments: TAKE 1 TABLET BY MOUTH THREE TIMES DAILY NEEDED FOR ANXIETY pantoprazole 40 mg tablet,delayed release (DR/EC) 40 mg PO QDAY Patient Comments: TAKE 1 TABLET BY MOUTH DAILY benazepril 20 mg tablet 20 mg PO QDAY famotidine 20 mg tablet 20 mg PO BID Qty: 20 0RF ondansetron 4 mg tablet,disintegrating 4 mg PO Q8H PRN (Reason: nausea and vomiting) Qty: 30 0RF lidocaine HCl [Lidocaine Viscous] 2 % solution 5 ml PO TIDPC MDD 15 mL PRN (Reason: dyspepsia) Qty: 300 0RF sucralfate [Carafate] 100 mg/mL suspension 10 ml PO TID Qty: 500 0RF Rx Instructions: swish in mouth and swallow; use after food/drink acetaminophen-codeine 300-30 mg tablet 2 tab PO TID MDD 6 PRN (Reason: pain) Qty: 20 0RF cefdinir 300 mg capsule 300 mg PO BID Qty: 14 0RF sucralfate [Carafate] 100 mg/mL suspension 5 ml PO QID Qty: 420 0RF Rx Instructions: swish in mouth and swallow; use after food/drink Eliquis 5 mg Tablet 5 mg PO QDAY Problem List Clinical Impression: Chronic abdominal pain, Polypharmacy, Anxiety disorder Patient/Caregiver Discharge Instructions Additional Instructions: Do not take pain medicines with Xanax nor mix other medications with your prescribed medicines. This will cause you to have great risk for falling and injury. You have chronic abdominal pain and been worked up several times this past week and all the workups have been negative. Today her abdominal exam is soft and benign. Dr. Langford your doctor was called and will contact you for reevaluation tomorrow. As always if you are worse in any way please return for reevaluation. Print Language: [place]an
[2024-12-06 16:42] VITALS: BP 162/74; PULSE 95; RESP 18; TEMP 36.7; O2SAT 98
[2024-12-06 17:00] VITALS: PULSE 78; O2SAT 95; BMI 31.2
== END 2024-12-06 18:02 | disposition home or self-care (01) ==
LOC: SERX 17:30
PROVIDERS: Emergency Provider Emergency Medicine; PCP Family Medicine
DX: G89.29 Other chronic pain (principal); R10.9 Unspecified abdominal pain; F41.9 Anxiety disorder, unspecified; I10 Essential (primary) hypertension; I48.91 Unspecified atrial fibrillation; E11.9 Type 2 diabetes mellitus without complications; E03.9 Hypothyroidism, unspecified
CPT/HCPCS: 80307; 99281

== ENCOUNTER 2025-01-21 23:50 | Emergency (ER) | payer MEDICARE, BC, SELFPAY ==
[2025-01-21 23:51] VITALS: BMI 31.2
--- NOTE | 2025-01-22 00:03 | XR_ITS ---
Examination: CT abdomen and pelvis without contrast. Coronal 3-D reconstructions. Sagittal 2-D reconstructions. Date and time of exam:January 22, 2025 0108 hours Comparison September 12, 2024 INDICATIONS: Onset lower abdominal pain today CTDI: vol (mGy): 10 DLP: (mGycm): 532 Technique: Axial images of the abdomen have been obtained, 3 mm slice thickness Intravenous contrast material has not been administered. Low dose protocols were performed. One or more of the following dose reduction techniques were used; automated exposure control, adjustment of the mA and/or KV according to patient size, use of iterative reconstruction technique. Findings: No focal liver or splenic lesions Contracted gallbladder No pancreatic or adrenal mass Mild right hydronephrosis without definite ureteral calculi, detail however in the pelvis is limited secondary to the patient's hemiarthroplasty No pericecal inflammatory change Mild renal parenchymal scar formation No renal calculi No bilateral infection or diverticulitis Urinary bladder intact Transpedicular stabilization at L5-S1, grade 1 anterolisthesis of L5 on S1. Impression : Mild right hydronephrosis, consider urinary tract infection, no renal or ureteral calculi No bowel obstruction Scattered colonic diverticulosis, no diverticulitis Abundant stool in the rectosigmoid
--- NOTE | 2025-01-22 00:04 | PD.EDABDPN ---
ED Abdominal Pain RME/HPI General Chief Complaint: Abdominal Pain Stated complaint: LOWER ABD PAIN Time seen by provider: 01/22/25 00:13 Arrival date/time: 01/21/25 23:50 RME / HPI RME / HPI narrative: This section includes all my notes and documentations, including HPI, PE, and ED course. Abhijeet Hernadez MD HPI: 79 y/o female with SHx of Hysterectomy and Appendectomy and Hx of Diverticulitis presents with lower abdominal pain x 3 days. Denies fever. No other complaints. ROS: All negative except as documented in HPI. Physical Exam: General: Alert and oriented. No acute distress when remaining still. Eyes: Conjunctivae and lids clear. ENT: No nasal congestion. Neck: Supple. Heart: RRR. Lungs: No respiratory distress. Good air movement. No rhonchi, wheezing, rales. Abdomen: Soft with equivocal lower quadrant tenderness. Normal bowel sounds. No distension. No rebound or guarding. Back: No CVA tenderness. Skin: Warm and dry. Neuro: Alert and oriented X 3. I reviewed all diagnostic test results: My review of the Abdomen/Pelvis CT report is constipation. Blood tests and urine tests unremarkable. At this point, diagnoses include: Constipation. Treatment here included: IV fluid, Morphine, Zofran. Significant improvement noted. Recommended conservative treatment. Based on my best medical judgment, made decision no further evaluation or treatment indicated at this time. Patient understands and agrees to the discharge instructions customized and printed, see below. Discharge instructions from Dr. Hernadez printed for you: ?After extensive evaluation, there is no emergency or serious condition. Such as diverticulitis. -You have constipation. ?Take Senokot S (not plain Senokot, OTC so prescription not needed), four pills at bedtime as needed.? And milk of magnesia as prescribed. May take a few days but this will help clear out your bowels. ?To help current constipation and prevent future constipation, increase oral fluid because dehydration cause severe constipation.? Maintain clear urine.? If dark or yellow, increase oral fluid. ?And every day, increase fresh fruits and fresh vegetables and physical exercise. ?See a private doctor on 01/24/2025 for recheck and further care. Ask to review all test results and official radiology reports, to make sure you receive all necessary follow-ups and monitoring. To make sure there is no serious underlying abdominal condition, ask to help you get more care not available here in the ER.? Such as EGD or scoping of your stomach, colonoscopy or scoping the colon, and a referral to see a diet tech. ?Seek immediate medical care with worsening or with any concerns. Abhijeet Hernadez MD Related Data Home Medications ?Medication ?Instructions ?Recorded ?Confirmed Bifidobacterium infantis 4 mg 4 mg PO DAILY 06/27/23 06/11/24 capsule (Align (B.infantis)) acetaminophen 500 mg tablet 500 mg PO PRN PRN Pain 06/27/23 10/28/23 cholecalciferol (vitamin D3) 25 25 mcg PO 1XD 06/27/23 10/28/23 mcg (1,000 unit) tablet (Vitamin D3) levothyroxine 50 mcg tablet 50 mcg PO DAILY 06/27/23 06/11/24 metformin 500 mg tablet 500 mg PO DAILY 06/27/23 06/11/24 duloxetine 60 mg capsule,delayed 60 mg PO QDAY 08/23/23 06/11/24 release alprazolam 0.5 mg tablet 0.5 mg PO BID PRN Anxiety 10/28/23 06/11/24 benazepril 20 mg tablet 20 mg PO QDAY 10/28/23 06/11/24 loperamide 2 mg capsule 2 mg PO QDAY 10/28/23 10/28/23 pantoprazole 40 mg tablet,delayed 40 mg PO QDAY 10/28/23 06/11/24 release apixaban 5 mg tablet (Eliquis) 5 mg PO QDAY 06/11/24 06/11/24 Previous Rx's ?Medication ?Instructions ?Recorded famotidine 20 mg tablet 20 mg PO BID #20 tabs 11/01/23 ondansetron 4 mg disintegrating 4 mg PO Q8H PRN nausea and 02/22/24 tablet vomiting #30 tabs sucralfate 100 mg/mL oral 5 ml PO QID #420 mL 04/10/24 suspension (Carafate) acetaminophen 300 mg-codeine 30 mg 2 tab PO TID PRN pain #20 tabs 07/02/24 tablet cefdinir 300 mg capsule 300 mg PO BID #14 caps 07/02/24 lidocaine HCl 2 % mucosal solution 5 ml PO TIDPC PRN dyspepsia #300 mL 07/02/24 (Lidocaine Viscous) sucralfate 100 mg/mL oral 10 ml PO TID #500 mL 07/02/24 suspension (Carafate) magnesium hydroxide 2,400 mg/10 mL 30 ml PO QDAY PRN constipation #60 01/22/25 oral suspension (Milk Of Magnesia mL Concentrated) sennosides 8.6 mg-docusate sodium 2 tab-cap (2 x 8.6-50 mg) PO QDAY 01/22/25 50 mg tablet (Senokot-S) PRN constipation #20 tabs Allergies Allergy/AdvReac Type Severity Reaction Status Date / Time amoxicillin (From Augmentin) Allergy Severe Hives Verified 01/21/25 23:51 aspirin Allergy Severe Abdominal Verified 01/21/25 23:51 Pain ciprofloxacin (From Cipro) Allergy Severe Gastrointestinal Verified 01/21/25 23:51 Upset clavulanic acid (From Allergy Severe Hives Verified 01/21/25 23:51 Augmentin) codeine Allergy Severe Nausea Verified 01/21/25 23:51 fluconazole Allergy Severe Rash Verified 01/21/25 23:51 gabapentin Allergy Severe Abdominal Verified 01/21/25 23:51 Pain ketorolac (From Toradol) Allergy Severe Abdominal Verified 01/21/25 23:51 Pain nalbuphine Allergy Severe Abdominal Verified 01/21/25 23:51 Pain Sulfa (Sulfonamide Allergy Severe Hives Verified 01/21/25 23:51 Antibiotics) tizanidine Allergy Severe Rash Verified 01/21/25 23:51 tramadol Allergy Severe Rash Verified 01/21/25 23:51 Review of Systems Review of Systems Systems Reviewed: All systems reviewed, normal except as documented Past Medical History Past Medical History CARDIAC: Positive Cardiac Disorders, Cardiac Arrhythmia, Atrial Fibrillation, Hypercholesterolemia and Hypertension RESPIRATORY: Positive Asthma, Pneumonia and Sleep Apnea GASTROINTESTINAL: Positive Gastrointestinal Disorders, Gastrointestinal Bleed, Colitis, Ulcerative Colitis, Diverticulitis, Diverticulosis, Ulcer, Irritable Bowel, Obstructive Bowel, Hemorrhoids and Obesity GENITOURINARY: Positive Kidney Stones REPRODUCTIVE: Positive Previous Pregnancies MUSCULOSKELETAL: Positive Musculoskeletal Disorders and Arthritis ENT: Positive Cataracts and Ear Infection ENDOCRINE: Positive Diabetes Mellitus Type 2 and Hypothyroidism PSYCHO/SOCIAL: Positive Anxiety OTHER HISTORY: Positive Falls, Blood Transfusions, Anesthesia Reactions, Chicken Pox, Mumps and Clostridium Difficile Family History FAMILY HISTORY: Positive Family Cardiac Disorders Surgical History SURGICAL: Positive Cardiac Surgery, Endocrine Surgery, Thyroidectomy, Abdominal Surgery, Joint Replacement and Section ED Exam Narrative Physical exam: Refer to [facility] Course Quality Measures none Orders Category Date Time Status Saline [Insert IV] NOW Care 01/22/25 00:[address] abdomen pelvis wo con Stat Exams 01/22/25 00:03 Taken Amylase Stat Lab 01/22/25 00:10 Completed Bilirubin,Direct Stat Lab 01/22/25 00:10 Completed CBC Stat Lab 01/22/25 00:10 Completed CMP [Comprehensive Metabolic Panel] Stat Lab 01/22/25 00:10 Completed Lipase Stat Lab 01/22/25 00:10 Completed Magnesium Stat Lab 01/22/25 00:10 Completed UA, C/S IF [Urinalysis, C/S if Indicated] Stat Lab 01/22/25 00:10 Completed Morphine Inj Med 01/22/25 00:02 Discontinued 2 mg IVP X1 ONE Ondansetron Inj [Zofran Inj] Med 01/22/25 00:02 Discontinued 4 mg IVP X1 ONE Sodium Chloride 0.9% 1000 ml [Ns] 1,000 ml Med 01/22/25 00:02 Discontinued IV 999 mls/hr Vital Signs Vital signs: Vital Signs Temperature 98.5 F 01/22/25 00:16 Pulse Rate 88 01/22/25 00:16 Respiratory Rate 18 01/22/25 00:16 Blood Pressure 178/92 H 01/22/25 00:16 Pulse Oximetry (%) 94 L 01/22/25 00:16 Oxygen Delivery Method Room Air 01/22/25 00:16 Abdominal Pain MDM MDM Narrative MDM Narrative:: Scribe Attestation: Antionette Ivy am scribing for and in the presence of Dr. Hernadez. Provider Notation: Although this document has been carefully reviewed, there may still be some phonetic and other typographical errors.? These errors are purely grammatical due to imperfections in the software program and should not be construed in any way to? compromise the substance of the patient's medical care during this visit. 79 y/o female with SHx of Hysterectomy and Appendectomy and Hx of Diverticulitis presents with severe lower abdominal pain x 3 days. Denies fever. No other complaints. Patient data External records reviewed:: [facility] previous records (Reviewed prior ED records from 12/06/24. Patient was seen for Anxiety disorder.) Clinical information provided by:: patient Social determinants that could affect healthcare access:: none Patient has the following chronic illnesses:: Cardiac Arrhythmia, Atrial Fibrillation, Hypercholesterolemia, Hypertension, Asthma, Pneumonia, Sleep Apnea, Gastrointestinal Bleed, Colitis, Ulcerative Colitis, Diverticulitis, Diverticulosis, Ulcer, Irritable Bowel, Obstructive Bowel, Hemorrhoids, Obesity, Kidney Stones, Arthritis, Cataracts, Ear Infection, Diabetes Mellitus Type 2 and Hypothyroidism How is presenting disease/condition affected by chronic disease/condition?: exacerbated by Evaluation data The following diagnostics were reviewed and interpreted by me:: lab results and radiology exam(s) Lab and/or radiology exams considered but not ordered:: None Interpretation Summary: I reviewed all diagnostic test results: My review of the Abdomen/Pelvis CT report is constipation. Blood tests and urine tests unremarkable. Medications / Prescriptions Medications or Prescriptions considered but not ordered:: None Medication administrations:: Medication Administration History Discontinued Medications Sodium Chloride (Ns) 1,000 mls @ 999 mls/hr IV .Q1H1M ONE Stop: 01/22/25 01:02 Last Infusion: 01/22/25 01:16 Dose: Infused Documented By: Admin: 01/22/25 00:15 Dose: 999 mls/hr Documented By: PINOR Morphine Sulfate (Morphine Sulf Inj 10 Mg/Ml Vial) 2 mg IVP X1 ONE Stop: 01/22/25 00:03 Last Admin: 01/22/25 00:14 Dose: 2 mg Documented By: ELIEZEROR Ondansetron HCl (Ondansetron Inj 2 Mg/Ml Inj 2 Ml) 4 mg IVP X1 ONE; Protocol Stop: 01/22/25 00:03 Last Admin: 01/22/25 00:15 Dose: 4 mg Documented By: ELIEZEROR IV fluid, Morphine, Zofran Consultations Consultation(s) initiated? (list below): No Diagnosis Differential diagnosis abdominal pain: abdominal pain, calculus of kidney, constipation, diverticulitis, gastroenteritis, small bowel obstruction and other (Constipation) Most likely diagnosis given after review of the tests above:: Constipation Admission Indicated Admission indicated?: not indicated Explain why admission is indicated or not indicated:: With no severe condition, there was no indication for admission. Admission Request Was there a request for admission?: No Disposition Plan Disposition Plan: Discharge Discharge Attestation Discharge Attestation: The patient and all family members were given an opportunity to ask questions and understood the discharge instructions. Discharge instructions specifically effects, indications for sooner follow up or return to the emergency department, and the expected course of current diagnosis. Patient condition: Stable Discharge Plan Plan Patient Disposition: HOME (Self Care) Prescriptions/Referrals Prescriptions/Med Rec: New sennosides-docusate sodium [Senokot-S] 8.6-50 mg tablet 2 tab-cap PO QDAY PRN (Reason: constipation) Qty: 20 0RF magnesium hydroxide [Milk Of Magnesia Concentrated] 2,400 mg/10 mL suspension 30 ml PO QDAY PRN (Reason: constipation) Qty: 60 0RF No Action metformin 500 mg Tablet 500 mg PO DAILY acetaminophen 500 mg Tablet 500 mg PO PRN MDD 4 PRN (Reason: Pain) levothyroxine 50 mcg Tablet 50 mcg PO DAILY cholecalciferol (vitamin D3) [Vitamin D3] 25 mcg (1,000 unit) Tablet 25 mcg PO 1XD Align (B.infantis) 4 mg Capsule 4 mg PO DAILY duloxetine 60 mg capsule,delayed release(DR/EC) 60 mg PO QDAY Rx Instructions: Takes 80mg in the afternoon loperamide 2 mg capsule 2 mg PO QDAY alprazolam 0.5 mg tablet 0.5 mg PO BID PRN (Reason: Anxiety) Patient Comments: TAKE 1 TABLET BY MOUTH THREE TIMES DAILY NEEDED FOR ANXIETY pantoprazole 40 mg tablet,delayed release (DR/EC) 40 mg PO QDAY Patient Comments: TAKE 1 TABLET BY MOUTH DAILY benazepril 20 mg tablet 20 mg PO QDAY famotidine 20 mg tablet 20 mg PO BID Qty: 20 0RF ondansetron 4 mg tablet,disintegrating 4 mg PO Q8H PRN (Reason: nausea and vomiting) Qty: 30 0RF lidocaine HCl [Lidocaine Viscous] 2 % solution 5 ml PO TIDPC MDD 15 mL PRN (Reason: dyspepsia) Qty: 300 0RF sucralfate [Carafate] 100 mg/mL suspension 10 ml PO TID Qty: 500 0RF Rx Instructions: swish in mouth and swallow; use after food/drink acetaminophen-codeine 300-30 mg tablet 2 tab PO TID MDD 6 PRN (Reason: pain) Qty: 20 0RF cefdinir 300 mg capsule 300 mg PO BID Qty: 14 0RF sucralfate [Carafate] 100 mg/mL suspension 5 ml PO QID Qty: 420 0RF Rx Instructions: swish in mouth and swallow; use after food/drink Eliquis 5 mg Tablet 5 mg PO QDAY Referrals: Tyrone Langford MD [Primary Care Provider] - In 1 week Problem List Clinical Impression: Constipation Patient/Caregiver Discharge Instructions Discharge Activity: activity as tolerated Education Materials: ED Constipation (Adult) Additional Instructions: Discharge instructions from Dr. Hernadez printed for you: ?After extensive evaluation, there is no emergency or serious condition. Such as diverticulitis. -You have constipation. ?Take Senokot S (not plain Senokot, OTC so prescription not needed), four pills at bedtime as needed.? And milk of magnesia as prescribed. May take a few days but this will help clear out your bowels. ?To help current constipation and prevent future constipation, increase oral fluid because dehydration cause severe constipation.? Maintain clear urine.? If dark or yellow, increase oral fluid. ?And every day, increase fresh fruits and fresh vegetables and physical exercise. ?See a private doctor on 01/24/2025 for recheck and further care. Ask to review all test results and official radiology reports, to make sure you receive all necessary follow-ups and monitoring. To make sure there is no serious underlying abdominal condition, ask to help you get more care not available here in the ER.? Such as EGD or scoping of your stomach, colonoscopy or scoping the colon, and a referral to see a diet tech. ?Seek immediate medical care with worsening or with any concerns. Print Language: Setswana Stand Alone Forms: [employer] Award Info., Patient Portal Info Letter
[2025-01-22] MEDS: MORPHINE SULF INJ 10 MG/ML VIAL 2 MG IVP (00:14)
[2025-01-22] MEDS: ONDANSETRON INJ 2 MG/ML INJ 2 ML 4 MG IVP (00:15)
[2025-01-22] MEDS: SODIUM CHLORIDE 0.9% 1000 ML 1,000 ML 999 ML IV (00:15)
[2025-01-22 00:16] VITALS: BP 178/92; PULSE 88; RESP 18; TEMP 36.9; O2SAT 94
[2025-01-22 00:24] LABS: Collection Type, Urine Clean Catch
[2025-01-22 00:25] LABS: Basophils # (Auto) 0.1 Thou/mm3 (0.0-0.2); Basophils % (Auto) 1 % (0-2.5); Eosinophils # (Auto) 0.1 Thou/mm3 (0.0-0.5); Eosinophils % (Auto) 1 % (0-10); Hematocrit 31.9 % (36.0-46.0); Hemoglobin 10.2 g/dL (12.0-16.0); Immature Granulocytes % (Auto) 0 % (0-0); Immature Granulocytes Auto 0.04 Thou/mm3 (0.00-0.00); Lymphocytes # (Auto) 2.7 Thou/mm3 (1.0-4.8); Lymphocytes % (Auto) 21 % (10-50); Mean Corpuscular Hemoglobin 25.9 pg (25.0-35.0); Mean Corpuscular Volume 81 fL (80-100); Monocytes # (Auto) 0.9 Thou/mm3 (0.0-0.8); Monocytes % (Auto) 7 % (0-12); Neutrophils # (Auto) 8.8 Thou/mm3 (1.8-7.7); Neutrophils % (Auto) 70 % (37-80); Nucleated Red Blood Cell % 0 /100 WBC (0); Platelet Count 382 Thou/mm3 (140-440); RDW Standard Deviation 47.8 fL (36.4-46.3); Red Blood Count 3.94 Miln/mm3 (4.00-5.20); White Blood Count 12.6 Thou/mm3 (3.6-11.0)
[2025-01-22 00:28] LABS: Bilirubin,Urine Negative (Negative); Blood,Urine Negative (Negative); Clarity,Urine Clear (Clear/Hazy); Color,Urine Lt-Yellow (Lt Yel-Yel); Culture Indicated,Urine Not Indicated; Glucose, Urine Negative (Negative); Ketones,Urine Negative (Negative); Leukocyte Esterase,Urine Negative (Negative); Nitrite,Urine Negative (Negative); Protein,Urine Negative (Neg - Trace); RBC,Urine < 1 /hpf (0-3); Specific Gravity,Urine 1.008 (1.001-1.035); Squamous Epithelial Cell,Urine < 1 /hpf (0-5); Urobilinogen,Urine Negative mg/dL (0.0-1.0); WBC,Urine 1 /hpf (0-5)
[2025-01-22 01:05] LABS: Alanine Aminotransferase 15 U/L (10-49); Albumin, Serum 4.9 gm/dL (3.4-4.8); Albumin/Globulin Ratio 1.6 (1.2-2.2); Alkaline Phosphatase 94 U/L (46-116); Amylase 78 U/L (30-118); Anion Gap 13 (7-16); Aspartate Amino Transferase 17 U/L (0-34); BUN/Creatinine Ratio 18 Ratio (12-20); Bilirubin,Direct < 0.1 mg/dL (0.0-0.3); Bilirubin,Total 0.2 mg/dL (0.3-1.2); Blood Urea Nitrogen 20 mg/dL (9-23); Calcium 9.7 mg/dL (8.3-10.6); Calcium (Corrected) 9.7 mg/dL (8.5-10.1); Carbon Dioxide 24.8 mMol/L (20.0-31.0); Chloride 103 mMol/L (98-107); Creatinine (Component) 1.1 mg/dL (0.6-1.3); Estimated Creatinine Clearance 37.5 mL/min (>60); Glucose 167 mg/dL (74-106); Lipase 51 U/L (12-53); Magnesium 1.8 mg/dL (1.6-2.6); Osmolality,Calculated 287 (275-295); Potassium 4.3 mMol/L (3.4-5.1); Sodium 141 mMol/L (136-145); Total Protein 7.9 gm/dL (5.7-8.2); eGFR 51 See Note
[2025-01-22 02:00] VITALS: BP 137/89; PULSE 72; RESP 18; TEMP 36.9; O2SAT 95
--- NOTE | 2025-01-22 02:43 | PRELIM_ITS ---
CT scan of the abdomen and pelvis without intravenous contrast (axial sections with sagittal and coronal reformats) January 22, 2025 0108 hours Clinical History: Lower abdominal pain Comparison: None. Findings: The lung bases are clear. The liver, gallbladder, pancreas, spleen and adrenals are unremarkable on this noncontrast study. Mild right hydroureteronephrosis with transition point in the pelvis. No evidence of bowel obstruction. No evidence of appendicitis. There is no mesenteric or retroperitoneal adenopathy. The urinary bladder is unremarkable. There is no free fluid or free air. Degenerative changes of the imaged portions of the spine. Chronic multilevel disc disease. No acute fractures. Status post right hip replacement, evaluation of the pelvis is limited by beam hardening artifacts. Fecal loading throughout the colon. Diverticulosis of the colon. No vascular calcifications. S/p hysterectomy. Impression: Fecal loading throughout the colon. Mild right hydroureteronephrosis with transition point in the pelvis. The distal portion of the ureter is not visualized, stone cannot be excluded. Please correlate clinically. Report Electronically Signed By: Charan Hernández 01/22/2025 2:43:01 AM [EST]
[2025-01-22 03:26] VITALS: BP 137/89; PULSE 77; RESP 16; TEMP 36.6; O2SAT 94
== END 2025-01-22 03:28 | disposition home or self-care (01) ==
PROVIDERS: Emergency Provider Emergency Medicine; PCP Family Medicine
DX: K59.00 Constipation, unspecified (principal); N13.30 Unspecified hydronephrosis; K57.30 Diverticulosis of large intestine without perforation or abscess without bleeding; Z96.641 Presence of right artificial hip joint; K82.0 Obstruction of gallbladder
CPT/HCPCS: 36415; 74176; 80053; 81001; 82150; 82248; 83690; 83735; 85025; 96374; 96375; 99284; J2270; J2405; J7030

== ENCOUNTER 2025-02-05 01:03 | Emergency (ER) | payer MEDICARE, BC, SELFPAY ==
--- NOTE | 2025-02-05 01:15 | PC.NURSE ---
SEEN PT LEAVING ER .
== END 2025-02-05 01:16 | disposition left against medical advice (07) ==
LOC: SERX 01:31
PROVIDERS: Emergency Provider Emergency Medicine
DX: Z53.21 Procedure and treatment not carried out due to patient leaving prior to being seen by health care provider (principal)

== ENCOUNTER 2025-02-05 11:07 | Inpatient (IN) | payer MEDICARE, BC, SELFPAY ==
[2025-02-05] VITALS (9 sets, daily range): BP systolic 147–201; BP diastolic 67–98; PULSE 59–92; RESP 14–98; TEMP 36.1–37.2; O2SAT 94–99; BMI 31.2; BMI 34.6
--- NOTE | 2025-02-05 11:40 | XR_ITS ---
Examination: CT abdomen and pelvis without contrast. Coronal 3-D reconstructions. Sagittal 2-D reconstructions. Date and time of exam:February 05, 2025 1323 hrs. Comparison January 22, 2025 Indications: Onset lower abdominal pain today CTDI: vol (mGy): 10.4 DLP: (mGycm): 523 Technique: Axial images of the abdomen have been obtained, 3 mm slice thickness Intravenous contrast material has not been administered. Low dose protocols were performed. One or more of the following dose reduction techniques were used; automated exposure control, adjustment of the mA and/or KV according to patient size, use of iterative reconstruction technique. Findings: Mild enlargement cardiac contour No visualized liver or splenic lesions No gallstones No pancreatic or adrenal mass No renal or ureteral calculi, no hydronephrosis Aorta normal size No pericecal inflammatory change Colonic diverticulosis, axial image 154 demonstrates mild inflammation about the diverticula in the sigmoid colon Artifacts in the pelvis secondary to the right hip arthroplasty Lumbar and L5-S1 Impression: Negative for gallstones Negative for pancreatitis Mild to moderate bilateral renal parenchymal scar formation No renal calculi, no hydronephrosis There is mild sigmoid diverticulitis, no abscess
--- NOTE | 2025-02-05 11:41 | PD.EDRME ---
Rapid Medical Screening Exam RME Arrival date/time: 02/05/25 11:07 This is a case of 79-year-old female with IBS and also came in in the emergency room due to abdominal pain associated with nausea vomiting for 4 days worsening of the symptoms this patient decided to seek consult here in the emergency room Chief Complaint: Nausea/Vomiting/Diarrhea Time Seen by Provider: 02/05/25 11:40 Vital signs: Vital Signs Temperature 97.8 F 02/05/25 11:36 Pulse Rate 92 02/05/25 11:36 Respiratory Rate 18 02/05/25 11:36 Blood Pressure 179/88 H 02/05/25 11:36 Pulse Oximetry (%) 95 02/05/25 11:36 Oxygen Delivery Method Room Air 02/05/25 11:36
[2025-02-05 12:13] LABS: Basophils # (Auto) 0.0 Thou/mm3 (0.0-0.2); Basophils % (Auto) 0 % (0-2.5); Eosinophils # (Auto) 0.1 Thou/mm3 (0.0-0.5); Eosinophils % (Auto) 1 % (0-10); Hematocrit 32.1 % (36.0-46.0); Hemoglobin 10.0 g/dL (12.0-16.0); Immature Granulocytes Auto 0.02 Thou/mm3 (0.00-0.00); Lymphocytes # (Auto) 2.1 Thou/mm3 (1.0-4.8); Lymphocytes % (Auto) 22 % (10-50); Mean Corpuscular HGB Conc 31.2 g/dl (31.0-37.0); Mean Corpuscular Hemoglobin 25.3 pg (25.0-35.0); Mean Corpuscular Volume 81 fL (80-100); Monocytes # (Auto) 0.8 Thou/mm3 (0.0-0.8); Monocytes % (Auto) 9 % (0-12); Neutrophils # (Auto) 6.6 Thou/mm3 (1.8-7.7); Neutrophils % (Auto) 68 % (37-80); Nucleated Red Blood Cell # 0.00 Thou/mm3 (0.00-0.00); Nucleated Red Blood Cell % 0 /100 WBC (0); Platelet Count 364 Thou/mm3 (140-440); RDW Standard Deviation 47.1 fL (36.4-46.3); Red Blood Count 3.96 Miln/mm3 (4.00-5.20); White Blood Count 9.7 Thou/mm3 (3.6-11.0)
[2025-02-05 12:34] LABS: Alanine Aminotransferase 14 U/L (10-49); Albumin, Serum 4.7 gm/dL (3.4-4.8); Albumin/Globulin Ratio 1.5 (1.2-2.2); Alkaline Phosphatase 101 U/L (46-116); Anion Gap 8 (7-16); Aspartate Amino Transferase 15 U/L (0-34); BUN/Creatinine Ratio 13 Ratio (12-20); Bilirubin,Total 0.2 mg/dL (0.3-1.2); Blood Urea Nitrogen 13 mg/dL (9-23); Calcium 9.8 mg/dL (8.3-10.6); Calcium (Corrected) 9.8 mg/dL (8.5-10.1); Carbon Dioxide 26.2 mMol/L (20.0-31.0); Chloride 104 mMol/L (98-107); Creatinine (Component) 1.0 mg/dL (0.6-1.3); Estimated Creatinine Clearance 41.2 mL/min (>60); Globulin 3.2 gm/dL (2.3-3.5); Glucose 143 mg/dL (74-106); Lipase 30 U/L (12-53); Osmolality,Calculated 277 (275-295); Potassium 4.5 mMol/L (3.4-5.1); Sodium 138 mMol/L (136-145); Total Protein 7.9 gm/dL (5.7-8.2); eGFR 58 See Note
[2025-02-05 13:38] LABS: Collection Type, Urine Clean Catch
[2025-02-05 13:56] LABS: Bilirubin,Urine Negative (Negative); Blood,Urine Negative (Negative); Clarity,Urine Clear (Clear/Hazy); Color,Urine Lt-Yellow (Lt Yel-Yel); Glucose, Urine Negative (Negative); Ketones,Urine Negative (Negative); Leukocyte Esterase,Urine Negative (Negative); Nitrite,Urine Negative (Negative); PH,Urine 7.5 (5.0-7.0); Protein,Urine Negative (Neg - Trace); RBC,Urine 1 /hpf (0-3); Specific Gravity,Urine 1.013 (1.001-1.035); Squamous Epithelial Cell,Urine 4 /hpf (0-5); Urobilinogen,Urine Negative mg/dL (0.0-1.0); WBC,Urine 1 /hpf (0-5)
--- NOTE | 2025-02-05 14:21 | PD.EDABDPN ---
ED Abdominal Pain RME/HPI General Chief Complaint: Nausea/Vomiting/Diarrhea Stated complaint: ABD. PAIN AND DIARRHEA SINCE LAST PM Time seen by provider: 02/05/25 11:40 Arrival date/time: 02/05/25 11:07 79-year-old female, with a past medical history of irritable bowel syndrome with chronic constipation, diverticulitis and peptic ulcer disease, presents to the ED with a complaint of abdominal cramping and diarrhea since last night after she took Dulcolax and Maalox. She is unsure if she ate something wrong. She states she grilled a Hamburger last night for dinner. She was seen here approximately 2 weeks ago and told to take Senokot and milk of magnesia for her symptoms of constipation. She states she had these other medications at home and decided to take them instead. Then today due to the amount of diarrhea (approximately 10 bouts) he she took 2 tablets of Imodium. She is a patient of Dr. Osuna. Source: patient RME / HPI RME / HPI narrative: 02/05/25 11:07 This is a case of 79-year-old female with IBS and also came in in the emergency room due to abdominal pain associated with nausea vomiting for 4 days worsening of the symptoms this patient decided to seek consult here in the emergency room Related Data Home Medications ?Medication ?Instructions ?Recorded ?Confirmed Bifidobacterium infantis 4 mg 4 mg PO DAILY 06/27/23 06/11/24 capsule (Align (B.infantis)) acetaminophen 500 mg tablet 500 mg PO PRN PRN Pain 06/27/23 10/28/23 cholecalciferol (vitamin D3) 25 25 mcg PO 1XD 06/27/23 10/28/23 mcg (1,000 unit) tablet (Vitamin D3) levothyroxine 50 mcg tablet 50 mcg PO DAILY 06/27/23 06/11/24 metformin 500 mg tablet 500 mg PO DAILY 06/27/23 06/11/24 duloxetine 60 mg capsule,delayed 60 mg PO QDAY 08/23/23 06/11/24 release alprazolam 0.5 mg tablet 0.5 mg PO BID PRN Anxiety 10/28/23 06/11/24 benazepril 20 mg tablet 20 mg PO QDAY 10/28/23 06/11/24 loperamide 2 mg capsule 2 mg PO QDAY 10/28/23 10/28/23 pantoprazole 40 mg tablet,delayed 40 mg PO QDAY 10/28/23 06/11/24 release apixaban 5 mg tablet (Eliquis) 5 mg PO QDAY 06/11/24 06/11/24 Previous Rx's ?Medication ?Instructions ?Recorded famotidine 20 mg tablet 20 mg PO BID #20 tabs 11/01/23 ondansetron 4 mg disintegrating 4 mg PO Q8H PRN nausea and 02/22/24 tablet vomiting #30 tabs sucralfate 100 mg/mL oral 5 ml PO QID #420 mL 04/10/24 suspension (Carafate) acetaminophen 300 mg-codeine 30 mg 2 tab PO TID PRN pain #20 tabs 07/02/24 tablet cefdinir 300 mg capsule 300 mg PO BID #14 caps 07/02/24 lidocaine HCl 2 % mucosal solution 5 ml PO TIDPC PRN dyspepsia #300 mL 07/02/24 (Lidocaine Viscous) sucralfate 100 mg/mL oral 10 ml PO TID #500 mL 07/02/24 suspension (Carafate) magnesium hydroxide 2,400 mg/10 mL 30 ml PO QDAY PRN constipation #60 01/22/25 oral suspension (Milk Of Magnesia mL Concentrated) sennosides 8.6 mg-docusate sodium 2 tab-cap (2 x 8.6-50 mg) PO QDAY 01/22/25 50 mg tablet (Senokot-S) PRN constipation #20 tabs Allergies Allergy/AdvReac Type Severity Reaction Status Date / Time amoxicillin (From Augmentin) Allergy Severe Hives Verified 02/05/25 11:11 aspirin Allergy Severe Abdominal Verified 02/05/25 11:11 Pain ciprofloxacin (From Cipro) Allergy Severe Gastrointestinal Verified 02/05/25 11:11 Upset clavulanic acid (From Allergy Severe Hives Verified 02/05/25 11:11 Augmentin) codeine Allergy Severe Nausea Verified 02/05/25 11:11 fluconazole Allergy Severe Rash Verified 02/05/25 11:11 gabapentin Allergy Severe Abdominal Verified 02/05/25 11:11 Pain ketorolac (From Toradol) Allergy Severe Abdominal Verified 02/05/25 11:11 Pain nalbuphine Allergy Severe Abdominal Verified 02/05/25 11:11 Pain Sulfa (Sulfonamide Allergy Severe Hives Verified 02/05/25 11:11 Antibiotics) tizanidine Allergy Severe Rash Verified 02/05/25 11:11 tramadol Allergy Severe Rash Verified 02/05/25 11:11 Review of Systems Review of Systems Systems Reviewed: All systems reviewed, normal except as documented Past Medical History Past Medical History NEUROLOGIC: Negative Neurological Disorders or Seizures CARDIAC: Positive Cardiac Disorders, Cardiac Arrhythmia, Atrial Fibrillation, Hypercholesterolemia and Hypertension; Negative Congestive Heart Failure RESPIRATORY: Positive Asthma, Pneumonia and Sleep Apnea; Negative Chronic Obstructive Pulmonary Disease (COPD) GASTROINTESTINAL: Positive Gastrointestinal Disorders, Gastrointestinal Bleed, Colitis, Ulcerative Colitis, Diverticulitis, Diverticulosis, Ulcer, Irritable Bowel, Obstructive Bowel, Hemorrhoids and Obesity GENITOURINARY: Positive Kidney Stones; Negative Genitourinary Disorders or Renal Disease REPRODUCTIVE: Positive Previous Pregnancies MUSCULOSKELETAL: Positive Musculoskeletal Disorders and Arthritis ENT: Positive Cataracts and Ear Infection ENDOCRINE: Positive Diabetes Mellitus Type 2 and Hypothyroidism; Negative Diabetes Mellitus Type 1 HEMATOLOGIC: Negative Blood Disorders or Sickle Cell Disease PSYCHO/SOCIAL: Positive Anxiety OTHER HISTORY: Positive Falls, Blood Transfusions, Anesthesia Reactions, Chicken Pox, Mumps and Clostridium Difficile; Negative Cancer Family History FAMILY HISTORY: Positive Family Cardiac Disorders; Negative Family Respiratory Disorders Surgical History SURGICAL: Positive Cardiac Surgery, Endocrine Surgery, Thyroidectomy, Abdominal Surgery, Joint Replacement, Hysterectomy and Section Social History SMOKING STATUS: Never smoker SUBSTANCE USE: does not use ED Exam Narrative Physical exam: Alert and oriented 79-year-old female, mild acute pain distress. Blood pressure 179/88, pulse 92, respirations 18 nonlabored, temperature 97.8, O2 sat 95% on room air. Recheck of vital signs once placed in the ED bed, blood pressure 201/85, pulse 71, respirations 18, temperature 98.0, O2 sat 99% on room air. (Patient states she did not take her benazepril this morning because she was too busy running to the bathroom). Lungs are clear, regular rate and rhythm without murmurs, bowel sounds are present in all 4 quadrants. No tenderness to percussion. Mild generalized tenderness without rebound or guarding. Course Course Course Narrative: CT Abd/Pelvis: Impression: Negative for gallstones. Negative for pancreatitis. Mild to moderate bilateral renal parenchymal scar formation. No renal calculi, no hydronephrosis. There is mild sigmoid diverticulitis, no abscess. CBC reveals a normal white count, mildly low H&H of 10.0 and 32.1 which is typical per previous records. Platelets are normal at 364. No elevation of absolute neutrophil count. Chemistry panel reveals sodium 138, potassium 4.5, chloride 104, CO2 26.2, gap 8. BUN and creatinine are normal at 13/1.0. Glucose is elevated at 143 LFTs are normal and lipase is normal. Urinalysis reveals clear light yellow urine with a specific gravity of 1.013 with negative protein, glucose, ketones, blood, nitrites, bilirubin, leukocyte esterase, or bacteria. Quality Measures none Orders Category Date Time Status CT abdomen pelvis wo con Stat Exams 02/05/25 11:40 Completed CBC Stat Lab 02/05/25 11:47 Completed Comprehensive Metabolic Panel Stat Lab 02/05/25 11:47 Completed Lipase Stat Lab 02/05/25 11:47 Completed Urinalysis Stat Lab 02/05/25 12:12 Completed Vital Signs Vital signs: Vital Signs Temperature 97.8 F 02/05/25 11:36 Pulse Rate 92 02/05/25 11:36 Respiratory Rate 18 02/05/25 11:36 Blood Pressure 179/88 H 02/05/25 11:36 Pulse Oximetry (%) 95 02/05/25 11:36 Oxygen Delivery Method Room Air 02/05/25 11:36 Abdominal Pain MDM MDM Narrative MDM Narrative:: 79-year-old female, with a past medical history of irritable bowel syndrome with chronic constipation, diverticulitis and peptic ulcer disease, presents to the ED with a complaint of abdominal cramping and diarrhea since last night after she took Dulcolax and Maalox. She is unsure if she ate something wrong. She states she grilled a Hamburger last night for dinner. She was seen here approximately 2 weeks ago and told to take Senokot and milk of magnesia for her symptoms of constipation. She states she had these other medications at home and decided to take them instead. Then today due to the amount of diarrhea (approximately 10 bouts) he she took 2 tablets of Imodium. She is a patient of Dr. Osuna. Alert and oriented 79-year-old female, mild acute pain distress. Blood pressure 179/88, pulse 92, respirations 18 nonlabored, temperature 97.8, O2 sat 95% on room air. Recheck of vital signs once placed in the ED bed, blood pressure 201/85, pulse 71, respirations 18, temperature 98.0, O2 sat 99% on room air. (Patient states she did not take her benazepril this morning because she was too busy running to the bathroom). Lungs are clear, regular rate and rhythm without murmurs, bowel sounds are present in all 4 quadrants. No significant tenderness to percussion. Mild generalized tenderness L>R, without rebound or guarding. CT Abd/Pelvis: Impression: Negative for gallstones. Negative for pancreatitis. Mild to moderate bilateral renal parenchymal scar formation. No renal calculi, no hydronephrosis. There is mild sigmoid diverticulitis, no abscess. CBC reveals a normal white count, mildly low H&H of 10.0 and 32.1 which is typical per previous records. Platelets are normal at 364. No elevation of absolute neutrophil count. Chemistry panel reveals sodium 138, potassium 4.5, chloride 104, CO2 26.2, gap 8. BUN and creatinine are normal at 13/1.0. Glucose is elevated at 143 LFTs are normal and lipase is normal. Urinalysis reveals clear light yellow urine with a specific gravity of 1.013 with negative protein, glucose, ketones, blood, nitrites, bilirubin, leukocyte esterase, or bacteria. She was given Cipro 400mg IV (Patient states she tolerates IV Cipro), Flagyl 500mg IV, Dilaudid 1mg IV, Compazine 5mg PO, as well as Labetalol 10mg IV for her elevated BP. Discussed case with Hospitalist for Admission. They will be down to evaluate the patient for possible admission. Patient data External records reviewed:: [facility] previous records Clinical information provided by:: patient Social determinants that could affect healthcare access:: none Patient has the following chronic illnesses:: Diverticulitis, IBS w/Constipation, Peptic Ulcer Disease. How is presenting disease/condition affected by chronic disease/condition?: caused by Evaluation data The following diagnostics were reviewed and interpreted by me:: lab results and radiology exam(s) Lab and/or radiology exams considered but not ordered:: N/A Interpretation Summary: CT Abd/Pelvis: Impression: Negative for gallstones. Negative for pancreatitis. Mild to moderate bilateral renal parenchymal scar formation. No renal calculi, no hydronephrosis. There is mild sigmoid diverticulitis, no abscess. CBC reveals a normal white count, mildly low H&H of 10.0 and 32.1 which is typical per previous records. Platelets are normal at 364. No elevation of absolute neutrophil count. Chemistry panel reveals sodium 138, potassium 4.5, chloride 104, CO2 26.2, gap 8. BUN and creatinine are normal at 13/1.0. Glucose is elevated at 143 LFTs are normal and lipase is normal. Urinalysis reveals clear light yellow urine with a specific gravity of 1.013 with negative protein, glucose, ketones, blood, nitrites, bilirubin, leukocyte esterase, or bacteria. Medications / Prescriptions Medications or Prescriptions considered but not ordered:: N/A Medication administrations:: She was given Cipro 400mg IV (Patient states she tolerates IV Cipro), Flagyl 500mg IV, Dilaudid 1mg IV, Compazine 5mg PO, as well as Labetalol 10mg IV for her elevated BP. Consultations Consultation(s) initiated? (list below): Yes Consultation #1 (Physician, Specialty, Details): Hospitalist agrees to evaluate patient for possible admission. Diagnosis Differential diagnosis abdominal pain: abdominal pain, acute appendicitis, constipation, diverticulitis, gastroenteritis, pancreatitis and small bowel obstruction Most likely diagnosis given after review of the tests above:: Diverticulitis with Diarrhea. Admission Request Was there a request for admission?: Yes Admission Attestation Admission request attestation: Discussed case with Hospitalist service regarding admission. Discussed patients ED course, exam findings, labs, and radiology results. The Hospitalist agrees to evaluate the patient for possible admission. Disposition Plan Disposition Plan: Admit Discharge Plan Plan Patient Disposition: Admit Acute Care w/in Hospital Discharge Disposition comment: Stable Prescriptions/Referrals Prescriptions/Med Rec: No Action metformin 500 mg Tablet 500 mg PO DAILY acetaminophen 500 mg Tablet 500 mg PO PRN MDD 4 PRN (Reason: Pain) levothyroxine 50 mcg Tablet 50 mcg PO DAILY cholecalciferol (vitamin D3) [Vitamin D3] 25 mcg (1,000 unit) Tablet 25 mcg PO 1XD Align (B.infantis) 4 mg Capsule 4 mg PO DAILY duloxetine 60 mg capsule,delayed release(DR/EC) 60 mg PO QDAY Rx Instructions: Takes 80mg in the afternoon loperamide 2 mg capsule 2 mg PO QDAY alprazolam 0.5 mg tablet 0.5 mg PO BID PRN (Reason: Anxiety) Patient Comments: TAKE 1 TABLET BY MOUTH THREE TIMES DAILY NEEDED FOR ANXIETY pantoprazole 40 mg tablet,delayed release (DR/EC) 40 mg PO QDAY Patient Comments: TAKE 1 TABLET BY MOUTH DAILY benazepril 20 mg tablet 20 mg PO QDAY famotidine 20 mg tablet 20 mg PO BID Qty: 20 0RF ondansetron 4 mg tablet,disintegrating 4 mg PO Q8H PRN (Reason: nausea and vomiting) Qty: 30 0RF lidocaine HCl [Lidocaine Viscous] 2 % solution 5 ml PO TIDPC MDD 15 mL PRN (Reason: dyspepsia) Qty: 300 0RF sucralfate [Carafate] 100 mg/mL suspension 10 ml PO TID Qty: 500 0RF Rx Instructions: swish in mouth and swallow; use after food/drink acetaminophen-codeine 300-30 mg tablet 2 tab PO TID MDD 6 PRN (Reason: pain) Qty: 20 0RF cefdinir 300 mg capsule 300 mg PO BID Qty: 14 0RF sucralfate [Carafate] 100 mg/mL suspension 5 ml PO QID Qty: 420 0RF Rx Instructions: swish in mouth and swallow; use after food/drink Eliquis 5 mg Tablet 5 mg PO QDAY sennosides-docusate sodium [Senokot-S] 8.6-50 mg tablet 2 tab-cap PO QDAY PRN (Reason: constipation) Qty: 20 0RF magnesium hydroxide [Milk Of Magnesia Concentrated] 2,400 mg/10 mL suspension 30 ml PO QDAY PRN (Reason: constipation) Qty: 60 0RF Referrals: Tyrone Langford MD [Primary Care Provider] - In 1 week Problem List Clinical Impression: Diverticulitis, Diarrhea Patient/Caregiver Discharge Instructions Print Language: Tamazight Stand Alone Forms: [employer] Award Info., Patient Portal Info Letter PA/BATCH AND FURNACE MANAGER Supervising Physician PA/BATCH AND FURNACE MANAGER Supervising Physician: Dr. Murray
[2025-02-05 15:00] LABS: Lactate (Lactic Acid) 1.6 mMol/L (0.4-2.0)
--- NOTE | 2025-02-05 15:44 | ESHP_ITS ---
Documentation for date of: 02/05/25 HPI History of Present Illness History of present illness: 79-year-old female patient with significant medical history for A-fib (on Eliquis), hypothyroidism HTN, DM2, IBS, duodenal ulcer, sleep apnea and diverticulosis came into ED with complaints of abdominal pain and diarrhea. Patient also endorsing nausea and chills without fever. She denied chest pain/pressure, dizziness, palpitations or other associate symptoms. Patient has had previous admission for similar symptoms, last admission June 2024. Patient does follow-up with GI Dr. Osuna, last appointment was over a month ago. Patient states since last night she has had multiple bouts of diarrhea/nonbloody. ED vitals significant for BP 179/88, CBC indicated Hgb 10, Hct 32, glucose 143. CHEM lab was unremarkable, UA was negative for UTI. Abdomen pelvis CT indicated mild sigmoid diverticulitis. Patient will be admitted for diverticulitis requiring IV antibiotics. Medical Hx: Afib, HTN, hypothyroidism, DM2, diverticulosis, IBS, duodenal ulcer Medications (need reconciliation): sucralfate, pantoprazole, odansetron, metformin, milke of magnesia, loperamide, lidocaine, levothyroxine, eliquis, duloxetine, vitamin D3, benazepril, acetaminophen Surgical Hx: total hysterectomy, appendectomy, left ankle right knee and right hip replacement Social Hx: denied smoking cigarette / alcohol or using other illicit drugs Code Status: Full Code Review of Systems Review of Systems Systems Reviewed: All systems reviewed, normal except as documented Exam Vital Signs Temp Pulse Resp BP Pulse Ox O2 Del Method 98 F 71 15 201/85 H 99 Room Air 02/05/25 14:04 02/05/25 14:04 02/05/25 14:02/05/25 14:04 02/05/25 14:02/05/25 14:04 Narrative Exam Constitutional: well-developed, well-nourished, in mild distress, lying in bed HEENT: NCAT, EOMI, reactive round pupils b/l, patent nares b/l, moist mucous membranes Lung: CTAB, no wheezing, no rhonchi Heart: Regular S1S2, no murmurs, gallops, or rubs Abdomen: Soft, non-distended, RLQ and LLQ abdomen tenderness on palpation, bowel sounds present Extremities: No cyanosis, clubbing, or edema, LE pulses present b/l Neurologic: No focal sensory or motor deficits noted, AOx3, appropriate affect Skin: Warm, dry, no lesions or rashes noted Results: Labs 02/06/25 06:00 02/06/25 06:00 Labs: Short CBC 02/05/25 Range/Units 11:47 WBC 9.7 (3.6-11.0) Thou/mm3 Hgb 10.0 L (12.0-16.0) g/dL Hct 32.1 L (36.0-46.0) % Plt Count 364 (140-440) Thou/mm3 BMP 02/05/25 11:47 Sodium 138 Potassium 4.5 Chloride 104 Carbon Dioxide 26.2 BUN 13 Creatinine 1.0 Glucose 143 H Calcium 9.8 Liver Function 02/05/25 Range/Units 11:47 Total Bilirubin 0.2 L (0.3-1.2) mg/dL AST 15 (0-34) U/L ALT 14 (10-49) U/L Alkaline Phosphatase 101 (46-116) U/L Albumin 4.7 (3.4-4.8) gm/dL Urine 02/05/25 Range/Units 12:12 Urine Color Lt-Yellow (Lt Yel-Yel) Urine Clarity Clear (Clear/Hazy) Urine pH 7.5 H (5.0-7.0) Ur Specific Sebastian 1.013 (1.001-1.035) Urine Protein Negative (Neg - Trace) Urine Glucose (UA) Negative (Negative) Quality Measures Quality Measures none Advance care planning discussed with:: patient Medications Home Medications and Allergies Home Medications ?Medication ?Instructions ?Recorded ?Confirmed ?Type Bifidobacterium infantis 4 mg 4 mg PO DAILY 06/27/23 0 02/05/25 History capsule (Align (B.infantis)) acetaminophen 500 mg tablet 500 mg PO PRN PRN Pain 02/05/25 History cholecalciferol (vitamin D3) 25 25 mcg PO 1XD 06/27/23 02/05/25 History mcg (1,000 unit) tablet (Vitamin D3) levothyroxine 50 mcg tablet 50 mcg PO DAILY 06/27/23 0 02/05/25 History metformin 500 mg tablet 500 mg PO DAILY 06/27/23 History duloxetine 60 mg capsule,delayed 60 mg PO QDAY 4 02/06/25 History release alprazolam 0.5 mg tablet 0.5 mg PO BID PRN Anxiety 02/05/25 History benazepril 20 mg tablet 20 mg PO QDAY 10/28/2302/05 History loperamide 2 mg capsule 2 mg PO QDAY 10/28/23 History pantoprazole 40 mg tablet,delayed 40 mg PO BID 4 02/05/25 History release apixaban 5 mg tablet (Eliquis) 5 mg PO QDAY 06/11/24 0 02/05/25 History alprazolam 0.5 mg tablet (Xanax) 0.5 mg PO TID PRN anx iety 02/05/25 02/05/25 History ascorbic acid (vitamin C) 500 mg 500 mg PO QDAY 02/05/25 History tablet (Vitamin C) duloxetine 60 mg capsule,delayed 60 mg PO QDAY 5 02/05/25 History release (Cymbalta) Allergies Allergy/AdvReac Type Severity Reaction Status Date / Time amoxicillin (From Augmentin) Allergy Severe Hives Verified 02/05/25 11:11 aspirin Allergy Severe Abdominal Verified 02/05/25 11:11 Pain ciprofloxacin (From Cipro) Allergy Severe Gastrointestinal Verified 02/05/25 11:11 Upset clavulanic acid (From Allergy Severe Hives Verified 02/05/25 11:11 Augmentin) codeine Allergy Severe Nausea Verified 02/05/25 11:11 fluconazole Allergy Severe Rash Verified 02/05/25 11:11 gabapentin Allergy Severe Abdominal Verified 02/05/25 11:11 Pain ketorolac (From Toradol) Allergy Severe Abdominal Verified 02/05/25 11:11 Pain nalbuphine Allergy Severe Abdominal Verified 02/05/25 11:11 Pain Sulfa (Sulfonamide Allergy Severe Hives Verified 02/05/25 11:11 Antibiotics) tizanidine Allergy Severe Rash Verified 02/05/25 11:11 tramadol Allergy Severe Rash Verified 02/05/25 11:11 Visit Medications Acetaminophen (Acetaminophen 325 Mg Tablet) 650 mg PO Q6H PRN PRN Reason: Fever >101.5 Stop: 03/07/25 15:27 Apixaban (Apixaban 2.5 Mg Tablet) 5 mg PO BID [facility] Stop: 03/07/25 20:59 Heparin Sodium (Porcine) (Heparin Sod Inj 5000 Unit/Ml Vial) 5,000 unit SC Q8HR EMMETT Stop: 02/19/25 21:59 Hydromorphone HCl (Hydromorphone Inj 2 Mg/Ml Vial) 1 mg IVP Q4H PRN PRN Reason: PAIN Stop: 02/10/25 15:27 Ciprofloxacin/Dextrose (Cipro Ivpb) 400 mg in 200 mls @ 200 mls/hr IV X1 ONE Stop: 02/05/25 16:29 Metronidazole (Flagyl 500 Mg Iv) 500 mg in 100 mls @ 200 mls/hr IV Q8HR EMMETT Stop: 02/12/25 21:59 Ciprofloxacin/Dextrose (Cipro Ivpb) 400 mg in 200 mls @ 200 mls/hr IV Q12HR EMMETT Stop: 02/12/25 20:59 Metoclopramide HCl (Metoclopramide Inj 5 Mg/Ml Vial 2 Ml) 10 mg IVP Q6H PRN; Protocol PRN Reason: NAUSEA OR VOMITING Stop: 03/07/25 15:27 Pantoprazole Sodium (Pantoprazole Inj 40 Mg Vial) 40 mg IVP Q12HR EMMETT Stop: 03/07/25 20:59 Discontinued Medications Hydromorphone HCl (Hydromorphone Inj 2 Mg/Ml Vial) 1 mg IVP X1 ONE Stop: 02/05/25 14:47 Metronidazole (Flagyl 500 Mg Iv) 500 mg in 100 mls @ 100 mls/hr IV X1 ONE Stop: 02/05/25 15:43 Ciprofloxacin/Dextrose (Cipro Ivpb) 400 mg in 200 mls @ 200 mls/hr IV Q12HR EMMETT Stop: 02/13/25 08:59 Metronidazole (Flagyl 500 Mg Iv) 500 mg in 100 mls @ 200 mls/hr IV Q8HR [facility] Stop: 02/13/25 08:59 Labetalol HCl (Labetalol Inj 5 Mg/Ml Vial 20 Ml) 10 mg IVP X1 ONE Stop: 02/05/25 15:03 Prochlorperazine Maleate (Prochlorperazine Maleate 5 Mg Tablet) 5 mg PO X1 ONE Stop: 02/05/25 14:49 Assessment & Plan Plan Summary: Ms. Temple is a 78-year-old female with history of atrial fibrillation, hypertension, diabetes, duodenal ulcer, chronic pain, multiple surgeries for chronic back pain, diverticulosis, IBS and sleep apnea who presented to [facility] with a chief complaint of abdominal pain. Patient admitted for colitis. # Diverticulitis of sigmoid colon # Hx of Diverticulosis # Diarrhea # IBS by History # Hx of Duodenal ulcer Patient with history of diverticulosis and IBS On admission patient presented with complain of abdominal pain with associated symptoms of chills and non-bloody diarrhea CT abdomen pelvis indicated mild sigmoid diverticulitis with no abscess Plan: -Patient started on ciprofloxacin and Flagyl IV (02/05/25 - ) -Continue LR 70 cc/h -Follow CBC CMP in a.m. -Follow up blood culture -Zofran IV PRN for nausea/vomiting -Protonix 40 mg IV BID # Hypertension On admission patient with BP 179/88 On home med benazepril 20 mg Qday Plan: -Start lisinopril 20 mg Qday -Start amlodipine 5 mg Qday -Labatelol for SBP > 170 #Diabetes Mellitus Last A1c 6.8% on Jun 2024 Plan: -Follow Hgb A1c in AM -SSI+accuchecks -Hypoglycemia protocol # Atrial fibrillation history Plan: -Eliquis 5 mg home med restarted # Hypothyroidism Plan: -Restart home med levothyroxine 50 mcg # Hx of anxiety # Hx of depression Plan: -Restart PRN alprazolam 0.5 mg BID -Restart home med duloxetine 60 mg Qday Health Maintenance Dispo: Patient admitted for acute diverticulitis requiring IV antibiotics Diet: Clear liquid diet DVT/PPx: Eliquis GI ppx: Protonix 40 IV twice daily Lines: PIV Code Status: Full code This patient care was discussed with my attending Dr. Neftali Hough MD PGY-2 Disclaimer: Minor errors in sawmill manager may be present since this note was dictated by speech recognition software. Attending Provider Attestation/Addendum I have examined the patient, reviewed labs and imaging findings, discussed the case with the resident(s), and reviewed entered orders. I agree with the plan of care as outlined in this note, with these additional summaries/recommendations: After examination of the patient and review of the clinical data, I feel that this patient needs admission to the hospital for further treatment and evaluation. Patient is a 79-year-old female with a medical history of duodenal ulcer, chronic pain, diverticulosis, IBS, chronic atrial fibrillation, primary hypertension, diabetes mellitus type 2, and obstructive sleep apnea who presents to [facility] emergency department on 02/05/2025 with chief complaint of moderate to severe abdominal pain which has progressively worsened with diarrhea. Patient was evaluated in the emergency room and underwent CT of abdomen and pelvis which revealed sigmoid diverticulitis although no abscess. Blood cultures taken in the ED, follow-up results when available. Start IV antibiotic and IV fluids. Advance diet as tolerated. Resume home medicines when able. Patient updated on the plan and in agreement. All questions answered to satisfaction. Please see residents note for additional details and management. Dr. Neftali MD
[2025-02-05] MEDS: HYDROmorphone INJ 2 MG/ML VIAL 1 MG IVP ×3 (15:56→21:53)
[2025-02-05] MEDS: metroNIDAZOLE/NS 500 MG IVPB 500 MG/100 ML BAG 100 MG IV (16:15)
[2025-02-05] MEDS: LABETALOL INJ 5 MG/ML VIAL 20 ML 10 MG IVP (17:22)
[2025-02-05] MEDS: PROCHLORPERAZINE MALEATE 5 MG TABLET PO (17:27)
[2025-02-05] MEDS: CIPROFLOXACIN/D5w 400 MG IVPB 400 MG/200 ML BAG 200 MG IV ×2 (17:27→20:26)
--- NOTE | 2025-02-05 19:43 | PC.NURSE ---
Report given to Je PALACIOS via telephone.
[2025-02-05] MEDS: APIXABAN 2.5 MG TABLET 5 MG PO (20:30)
[2025-02-05] MEDS: metroNIDAZOLE/NS 500 MG IVPB 500 MG/100 ML BAG 200 MG IV (22:09)
[2025-02-06] VITALS (10 sets, daily range): BP systolic 91–126; BP diastolic 45–60; PULSE 56–87; RESP 16–96; TEMP 36.1–36.6; O2SAT 91–96
[2025-02-06] MEDS: HYDROmorphone INJ 2 MG/ML VIAL 1 MG IVP ×2 (02:28→05:18)
[2025-02-06] MEDS: metroNIDAZOLE/NS 500 MG IVPB 500 MG/100 ML BAG 200 MG IV ×3 (05:10→21:25)
[2025-02-06] MEDS: LEVOTHYROXINE SODIUM 25 MCG TABLET 50 MCG PO (05:10)
[2025-02-06] MEDS: SIMETHICONE 80 MG CHEW PO (06:18)
[2025-02-06 06:22] LABS: Basophils # (Auto) 0.0 Thou/mm3 (0.0-0.2); Basophils % (Auto) 0 % (0-2.5); Eosinophils # (Auto) 0.0 Thou/mm3 (0.0-0.5); Eosinophils % (Auto) 0 % (0-10); Hematocrit 37.4 % (36.0-46.0); Hemoglobin 12.7 g/dL (12.0-16.0); Immature Granulocytes Auto 0.02 Thou/mm3 (0.00-0.00); Lymphocytes # (Auto) 1.3 Thou/mm3 (1.0-4.8); Lymphocytes % (Auto) 13 % (10-50); Mean Corpuscular HGB Conc 34.0 g/dl (31.0-37.0); Mean Corpuscular Hemoglobin 28.5 pg (25.0-35.0); Mean Corpuscular Volume 84 fL (80-100); Monocytes # (Auto) 0.4 Thou/mm3 (0.0-0.8); Monocytes % (Auto) 4 % (0-12); Neutrophils # (Auto) 8.0 Thou/mm3 (1.8-7.7); Neutrophils % (Auto) 83 % (37-80); Nucleated Red Blood Cell # 0.00 Thou/mm3 (0.00-0.00); Nucleated Red Blood Cell % 0 /100 WBC (0); Platelet Count 212 Thou/mm3 (140-440); RDW Standard Deviation 46.4 fL (36.4-46.3); Red Blood Count 4.45 Miln/mm3 (4.00-5.20); White Blood Count 9.7 Thou/mm3 (3.6-11.0)
[2025-02-06 06:53] LABS: Alanine Aminotransferase 27 U/L (10-49); Albumin, Serum 3.6 gm/dL (3.4-4.8); Albumin/Globulin Ratio 1.0 (1.2-2.2); Alkaline Phosphatase 58 U/L (46-116); Anion Gap 5 (7-16); Aspartate Amino Transferase 20 U/L (0-34); BUN/Creatinine Ratio 13 Ratio (12-20); Bilirubin,Total 0.3 mg/dL (0.3-1.2); Blood Urea Nitrogen 9 mg/dL (9-23); Calcium 8.8 mg/dL (8.3-10.6); Calcium (Corrected) 9.1 mg/dL (8.5-10.1); Carbon Dioxide 32.0 mMol/L (20.0-31.0); Chloride 99 mMol/L (98-107); Creatinine (Component) 0.7 mg/dL (0.6-1.3); Estimated Creatinine Clearance 62.2 mL/min (>60); Globulin 3.6 gm/dL (2.3-3.5); Glucose 128 mg/dL (74-106); Magnesium 2.1 mg/dL (1.6-2.6); Osmolality,Calculated 272 (275-295); Phosphorous 3.4 mg/dL (2.4-5.1); Potassium 4.3 mMol/L (3.4-5.1); Sodium 136 mMol/L (136-145); Total Protein 7.2 gm/dL (5.7-8.2); eGFR > 60 See Note
[2025-02-06 07:11] LABS: Glucose Estimated Average 105 mg/dL (80-131); Hemoglobin A1C 5.3 % Hgb (4.8-6.0)
[2025-02-06] MEDS: SUCRALFATE SUSP 1 GM/10 ML UDC PO ×3 (07:28→21:25)
[2025-02-06] MEDS: METOCLOPRAMIDE INJ 5 MG/ML VIAL 2 ML 10 MG IVP ×2 (07:28→13:13)
--- NOTE | 2025-02-06 07:32 | PC.NURSE ---
Contacted hospitalist regarding patients antibiotic Ciprofloxacin. Per patient, ciprofloxacin causes her to have an upset stomach. Per MD. it is okay to give patient IV ciprofloxacin due to it not being an allergy but a side effect of the antibiotic.
[2025-02-06] MEDS: RINGERS LACTATED 1000 ML 1,000 ML 70 ML IV (09:00)
[2025-02-06] MEDS: CIPROFLOXACIN/D5w 400 MG IVPB 400 MG/200 ML BAG 200 MG IV ×2 (09:01→20:14)
[2025-02-06] MEDS: APIXABAN 2.5 MG TABLET 5 MG PO ×2 (09:02→20:15)
[2025-02-06] MEDS: DULoxetine HCL 30 MG CAPSULE 60 MG PO (09:02)
--- NOTE | 2025-02-06 09:55 | EKG_ITS ---
[facility] Test Date: 2025-02-06 Pat Name: MARIBEL ALAMO [facility] Gender: Female Forensic Accountant: JAVAD : 1945 Requested By: Esme Mock Order Number: [id number] Reading MD: Esme Mock Measurements Intervals [place] Rate: 65 P: 46 AR: 139 QRS: 22 QRSD: 102 T: 53 QT: 446 QTc: 466 Interpretive Statements SINUS RHYTHM LOW QRS VOLTAGE IN PRECORDIAL LEADS Compared to ECG 12/02/2024 07:05:01 Low QRS voltage now present Myocardial infarct finding no longer present /store/S0/[id number]/ecg/[id number].pdf
[2025-02-06] MEDS: ACETAMINOPHEN 325 MG TABLET 650 MG PO ×2 (12:06→19:04)
[2025-02-06] MEDS: INSULIN LISPRO (AdmeLOG) 1 UNIT/0.01 ML UNIT SC (12:06)
--- NOTE | 2025-02-06 14:11 | ESPR_ITS ---
<Statement entered by Shannon Henry MD - 02/06/25 17:46> I Shannon Henry MD reviewed the note and agree with the resident's assessment & plan with exceptions as below. I have personally reviewed labs, imaging, home meds/prior records, examined the patient, formulated and discussed management plan with the IM team. A 79-year-old female with history of AF, peptic ulcer disease and diverticulitis in the past presented to ED with abdominal pain and nausea noted to have sigmoid diverticulitis on imaging. Will start on IV fluid resuscitation, ciprofloxacin and metronidazole empirically along with PPI twice daily. Obtain EKG, TTE, continue Eliquis for anticoagulation in setting of A-fib. Documentation for date of: 02/06/25 Subjective Subjective Interval history: No significant overnight event. Vitals and labs are unremarkable. Patient being treated for diverticulitis. No bowel movement, last episode of diarrhea the night prior to admission. She has improvement of pain, on physical exam still mild tenderness of RLQ and LLQ. Patient on clear liquid diet. We will continue IV antibiotics, anticipating discharge tomorrow. Exam Vital Signs Temp Pulse Resp BP Pulse Ox O2 Del Method O2 Flow Rate 97.1 F 84 18 99/51 L 94 L Nasal Cannula 2 02/06/25 08:00 02/06/25 12:00 02/06/25 08:00 02/06/25 09:04 02/06/25 08:00 02/06/25 08:00 02/06/25 08:00 Narrative Exam Constitutional: well-developed, well-nourished, in mild distress, lying in bed HEENT: NCAT, EOMI, reactive round pupils b/l, patent nares b/l, moist mucous membranes Lung: CTAB, no wheezing, no rhonchi Heart: Regular S1S2, no murmurs, gallops, or rubs Abdomen: Soft, non-distended, RLQ and LLQ abdomen tenderness on palpation, bowel sounds present Extremities: No cyanosis, clubbing, or edema, LE pulses present b/l Neurologic: No focal sensory or motor deficits noted, AOx3, appropriate affect Skin: Warm, dry, no lesions or rashes noted Objective Labs 02/06/25 06:00 02/06/25 06:00 Labs: Laboratory Results - last 24 hr 02/05/25 02/06/25 14:55 06:00 WBC 9.7 RBC 4.45 Hgb 12.7 D Hct 37.4 MCV 84 MCH 28.5 MCHC 34.0 RDW Std Deviation 46.4 H Plt Count 212 D Neut % (Auto) 83 H Lymph % (Auto) 13 [place] % (Auto) 4 Eos % (Auto) 0 Baso % (Auto) 0 Neut # (Auto) 8.0 H Lymph # (Auto) 1.3 [place] # (Auto) 0.4 Eos # (Auto) 0.0 Baso # (Auto) 0.0 Immature Gran # (Auto) 0.02 H Absolute Nucleated RBC 0.00 Immature Gran % 0 Nucleated RBC % 0 Sodium 136 Potassium 4.3 Chloride 99 Carbon Dioxide 32.0 H Anion Gap 5 L BUN 9 Creatinine 0.7 Estim Creat Clear Calc 62.2 eGFR > 60 BUN/Creatinine Ratio [address] Glu mg/dL 105 Hemoglobin A1c 5.3 Calculated Osmolality 272 L Lactic Acid 1.6 Calcium 8.8 Corrected Calcium 9.1 Phosphorus 3.4 Magnesium 2.1 Total Bilirubin 0.3 AST 20 ALT 27 Alkaline Phosphatase 58 D Total Protein 7.2 Albumin 3.6 D Globulin 3.6 H Albumin/Globulin Ratio 1.0 L Quality Measures Quality Measures none Advance care planning discussed with:: patient Assessment & Plan Assessment Current Active Medications: Generic Name Dose Route Start Last Admin Trade Name Freq PRN Reason Stop Dose Admin Acetaminophen 650 mg 02/05/25 15:28 Acetaminophen 325 Mg Tablet PO 03/07/25 15:27 Q6H PRN Fever >101.5 Acetaminophen 650 mg 02/06/25 09:51 02/06/25 12:06 Acetaminophen 325 Mg Tablet PO 03/08/25 09:50 650 mg Q6HR PRN Administration Pain 1-4 Hydrocodone Bitart/Acetaminophen 1 tab 02/06/25 09:51 Hydrocodone/Apap 10/325 Tab PO 02/11/25 09:50 Q6HR PRN Pain 6-10 Alprazolam 0.5 mg 02/05/25 16:40 02/06/25 12:06 Alprazolam 0.25 Mg Tablet PO 02/10/25 16:39 0.5 mg BID PRN Administration ANXIETY Amlodipine Besylate 5 mg 02/06/25 09:00 02/06/25 09:03 Amlodipine Besylate 5 Mg Tablet PO 03/08/25 08:59 Not Given QDAY EMMETT Apixaban 5 mg 02/05/25 21:00 02/06/25 09:02 Apixaban 2.5 Mg Tablet PO 03/07/25 20:59 5 mg BID EMMETT Administration Dextrose 25 ml 02/05/25 17:40 Dextrose 50%-Water Inj 50 Ml Syringe IV 03/07/25 17:39 Q15MIN PRN BG 50-70 responsive npo pt Dextrose 50 ml 02/05/25 17:40 Dextrose 50%-Water Inj 50 Ml Syringe IV 03/07/25 17:39 Q15MIN PRN BG <50 OR BG <70 & pt unresponsive Duloxetine HCl 60 mg 02/06/25 09:00 02/06/25 09:02 Duloxetine Hcl 30 Mg Capsule PO 03/08/25 08:59 60 mg QDAY EMMETT Administration Glucagon 1 mg 02/05/25 17:40 Glucagon Inj 1 Mg Vial IM Q15MIN PRN BG <70, and no IV access Metronidazole 500 mg in 100 mls @ 200 mls/hr 02/05/25 22:00 02/06/25 13:04 Flagyl 500 Mg Iv IV 02/12/25 21:59 200 mls/hr Q8HR EMMETT Administration Ciprofloxacin/Dextrose 400 mg in 200 mls @ 200 mls/hr 02/05/25 21:00 02/06/25 09:01 Cipro Ivpb IV 02/12/25 20:59 200 mls/hr Q12HR EMMETT Administration Lactated Ringer's 1,000 mls @ 70 mls/hr 02/06/25 08:24 02/06/25 09:00 Lactated Ringers IV 03/08/25 08:23 70 mls/hr .[id number] EMMETT Administration Insulin Human Lispro 0 unit 02/06/25 07:30 02/06/25 12:06 Insulin Lispro (Admelog) 1 Unit/0.01 Ml Unit SC 03/08/25 07:29 2 unit AC EMMETT Administration Protocol Labetalol HCl 10 mg 02/05/25 17:45 Labetalol Inj 5 Mg/Ml Vial 20 Ml IVP 03/07/25 17:44 Q4H PRN SBP > 170 or DBP > 100 Levothyroxine Sodium 50 mcg 02/06/25 06:00 02/06/25 05:10 Levothyroxine Sodium 25 Mcg Tablet PO 03/08/25 05:59 50 mcg ACBR EMMETT Administration Lisinopril 20 mg 02/05/25 17:45 02/06/25 09:04 Lisinopril 20 Mg Tablet PO 03/07/25 17:44 Not Given QDAY EMMETT Metoclopramide HCl 10 mg 02/05/25 15:28 02/06/25 13:13 Metoclopramide Inj 5 Mg/Ml Vial 2 Ml IVP 03/07/25 15:27 10 mg Q6H PRN Administration NAUSEA OR VOMITING Protocol Pantoprazole Sodium 40 mg 02/06/25 21:00 Pantoprazole 40 Mg Tablet PO 03/08/25 20:59 BID EMMETT Sucralfate 1 gm 02/06/25 07:15 02/06/25 13:04 Sucralfate Susp 1 Gm/10 Ml Udc PO 03/08/25 07:14 1 gm TID EMMETT Administration Plan Summary: Ms. Temple is a 78-year-old female with history of atrial fibrillation, hypertension, diabetes, duodenal ulcer, chronic pain, multiple surgeries for chronic back pain, diverticulosis, IBS and sleep apnea who presented to [facility] with a chief complaint of abdominal pain. Patient admitted for colitis. # Diverticulitis of sigmoid colon # Hx of Diverticulosis # Diarrhea # IBS by History # Hx of Duodenal ulcer Patient with history of diverticulosis and IBS On admission patient presented with complain of abdominal pain with associated symptoms of chills and non-bloody diarrhea CT abdomen pelvis indicated mild sigmoid diverticulitis with no abscess Plan: -Continue ciprofloxacin and Flagyl IV (02/05/25 - ) -Continue LR 70 cc/h -Follow CBC CMP in a.m. -Follow up blood culture -Zofran IV PRN for nausea/vomiting -Protonix 40 mg IV BID # Hypertension On admission patient with BP 179/88 On home med benazepril 20 mg Qday Plan: -Start lisinopril 20 mg Qday -Start amlodipine 5 mg Qday -Labatelol for SBP > 170 #Diabetes Mellitus Last A1c 6.8% on Jun 2024 Plan: -Follow Hgb A1c in AM -SSI+accuchecks -Hypoglycemia protocol # Atrial fibrillation history Plan: -Eliquis 5 mg home med restarted # Hypothyroidism Plan: -Restart home med levothyroxine 50 mcg # Hx of anxiety # Hx of depression Plan: -Restart PRN alprazolam 0.5 mg BID -Restart home med duloxetine 60 mg Qday Health Maintenance Dispo: Patient admitted for acute diverticulitis requiring IV antibiotics Diet: Clear liquid diet DVT/PPx: Eliquis GI ppx: Protonix 40 IV twice daily Lines: PIV Code Status: Full code This patient care was discussed with my attending Dr. Carl Hough MD PGY-2
--- NOTE | 2025-02-06 15:37 | PC.SS ---
Patient is alert/oriented. Patient was able to verify demographics. Patient was admitted for abdominal pain. Patient resides alone. Patient states she has a careprovider that sees her 4-5 times a week, 7 hours a day. Patient uses a walker, FWW and a rollator. Patient does not have any 02 at home. Patient states her careprovider provides transportation assistance. PCP: Dr. Dashawn Langford. Last appt was last month. Other specialty physicians: Dr. Osuna and Dr. Reza. Alt medical decision maker: stephanie Larson, . D/c plan: home alt medical decision maker: stephanie Ceb[place]os, [place] plan: home
--- NOTE | 2025-02-06 15:42 | PC.SS ---
rounding note: Patient experiencing constipation. On iv. antibiotics. Poss d/c Thursday
[2025-02-06] MEDS: PANTOPRAZOLE 40 MG TABLET PO (20:14)
[2025-02-07] VITALS (12 sets, daily range): BP systolic 107–133; BP diastolic 52–61; PULSE 65–92; RESP 17–100; TEMP 36.3–36.8; O2SAT 92–96
[2025-02-07] MEDS: SUCRALFATE SUSP 1 GM/10 ML UDC PO ×2 (05:18→14:24)
[2025-02-07] MEDS: LEVOTHYROXINE SODIUM 25 MCG TABLET 50 MCG PO (05:19)
[2025-02-07] MEDS: metroNIDAZOLE/NS 500 MG IVPB 500 MG/100 ML BAG 200 MG IV ×3 (05:19→22:21)
[2025-02-07] MEDS: RINGERS LACTATED 1000 ML 1,000 ML 70 ML IV (05:22)
[2025-02-07 05:53] LABS: Basophils # (Auto) 0.0 Thou/mm3 (0.0-0.2); Basophils % (Auto) 0 % (0-2.5); Eosinophils # (Auto) 0.1 Thou/mm3 (0.0-0.5); Eosinophils % (Auto) 1 % (0-10); Hematocrit 28.6 % (36.0-46.0); Hemoglobin 8.9 g/dL (12.0-16.0); Immature Granulocytes Auto 0.03 Thou/mm3 (0.00-0.00); Lymphocytes # (Auto) 1.8 Thou/mm3 (1.0-4.8); Lymphocytes % (Auto) 18 % (10-50); Mean Corpuscular HGB Conc 31.1 g/dl (31.0-37.0); Mean Corpuscular Hemoglobin 25.4 pg (25.0-35.0); Mean Corpuscular Volume 82 fL (80-100); Monocytes # (Auto) 1.2 Thou/mm3 (0.0-0.8); Monocytes % (Auto) 12 % (0-12); Neutrophils # (Auto) 6.9 Thou/mm3 (1.8-7.7); Neutrophils % (Auto) 69 % (37-80); Nucleated Red Blood Cell # 0.00 Thou/mm3 (0.00-0.00); Nucleated Red Blood Cell % 0 /100 WBC (0); Platelet Count 357 Thou/mm3 (140-440); RDW Standard Deviation 47.2 fL (36.4-46.3); Red Blood Count 3.50 Miln/mm3 (4.00-5.20); White Blood Count 10.0 Thou/mm3 (3.6-11.0)
[2025-02-07 06:27] LABS: Alanine Aminotransferase 11 U/L (10-49); Albumin, Serum 3.8 gm/dL (3.4-4.8); Albumin/Globulin Ratio 1.4 (1.2-2.2); Alkaline Phosphatase 72 U/L (46-116); Anion Gap 7 (7-16); Aspartate Amino Transferase 19 U/L (0-34); BUN/Creatinine Ratio 6 Ratio (12-20); Bilirubin,Total 0.3 mg/dL (0.3-1.2); Blood Urea Nitrogen 18 mg/dL (9-23); Calcium 8.5 mg/dL (8.3-10.6); Calcium (Corrected) 8.7 mg/dL (8.5-10.1); Carbon Dioxide 25.1 mMol/L (20.0-31.0); Chloride 104 mMol/L (98-107); Creatinine (Component) 3.1 mg/dL (0.6-1.3); Estimated Creatinine Clearance 14.0 mL/min (>60); Globulin 2.7 gm/dL (2.3-3.5); Glucose 132 mg/dL (74-106); Magnesium 1.9 mg/dL (1.6-2.6); Osmolality,Calculated 275 (275-295); Phosphorous 5.7 mg/dL (2.4-5.1); Potassium 4.3 mMol/L (3.4-5.1); Sodium 136 mMol/L (136-145); Total Protein 6.5 gm/dL (5.7-8.2); eGFR 15 See Note
[2025-02-07] MEDS: ACETAMINOPHEN 325 MG TABLET 650 MG PO ×3 (07:58→20:59)
[2025-02-07] MEDS: PANTOPRAZOLE 40 MG TABLET PO ×2 (07:59→20:59)
[2025-02-07] MEDS: CIPROFLOXACIN/D5w 400 MG IVPB 400 MG/200 ML BAG 200 MG IV ×2 (07:59→20:58)
[2025-02-07] MEDS: DULoxetine HCL 30 MG CAPSULE 60 MG PO (07:59)
[2025-02-07] MEDS: INSULIN LISPRO (AdmeLOG) 1 UNIT/0.01 ML UNIT SC (08:21)
[2025-02-07] MEDS: APIXABAN 2.5 MG TABLET 5 MG PO (08:24)
[2025-02-07 10:31] LABS: Hematocrit 26.7 % (36.0-46.0)
[2025-02-07 11:12] LABS: Hemoglobin 8.5 g/dL (12.0-16.0)
[2025-02-07] MEDS: SIMETHICONE 80 MG CHEW PO (12:01)
[2025-02-07] MEDS: SODIUM CHLORIDE 0.9% 1000 ML 1,000 ML 70 ML IV (12:01)
--- NOTE | 2025-02-07 14:05 | ESPR_ITS ---
<Statement entered by Esme Mock MD - 02/07/25 20:16> In summary: She was admitted for diverticulitis, continued on ANTIBIOTICS. Remains afebrile and no leukocytosis. Pain well-controlled. Symptoms overall improved, advancing diet and she is tolerating well, had a BM this morning was normal in color and consistency. She has new anemia Hgb 12.7 > 8.5 with no clear cause, pending FOBT, ELIQUIS for A-fib has been held. Additionally, new GOOD with creatinine 3.0, likely ATN in settings of several episode of hypotension over the last few days. Continued on fluids, allowing for slightly higher blood pressure to maintain adequate renal perfusion. Case was discussed with attending physician and senior resident. Esme Mock DO PGY II This document was transcribed using voice recognition technology. Minor inaccuracies may be present. Documentation for date of: 02/07/25 Subjective Subjective Interval history: No significant overnight event. Original abdominal discomfort is improving. Pt had bowel movements in AM, of normal form. Complaining of abdominal bloating currently. Denies diarrhea, or fevers. Pt feels anxious by the news of her recent declining kidney function tests, but was reassured in the room in the expertise of the on-board convertible sofa bedspring tester. Patient states that she usually goes on daily walks for exercise which also helps with bowel peristalsis and leg edema. Vitals stable. Labs revealed Cr 3.1, BUN 24, eGFR 15 consistent. Hgb 9.6 uptrending from yesterday 8.5. Pt denies noticing blood in stool. Patient being treated for diverticulitis with ABx. Patient on clear liquid diet. On physical exam still mild diffuse tenderness of RLQ and LLQ. Exam Vital Signs Temp Pulse Resp BP Pulse Ox O2 Del Method O2 Flow Rate 97.4 F 74 19 127/59 L 96 Room Air 2 02/07/25 11:43 02/07/25 11:43 02/07/25 11:43 02/07/25 11:43 02/07/25 11:43 02/07/25 11:43 02/06/25 12:00 Narrative Exam Constitutional: well-developed, well-nourished, in mild distress, lying in bed HEENT: NCAT, EOMI, reactive round pupils b/l, patent nares b/l, moist mucous membranes Lung: CTAB, no wheezing, no rhonchi Heart: Regular S1S2, no murmurs, gallops, or rubs Abdomen: Soft, non-distended, RLQ and LLQ abdomen tenderness on palpation, bowel sounds present Extremities: No cyanosis, clubbing, LE pulses present b/l. Trace b/l lower extremity edema. Neurologic: No focal sensory or motor deficits noted, AOx3, appropriate affect Skin: Warm, dry, no lesions or rashes noted Objective Labs 02/09/25 05:26 02/09/25 05:26 Labs: Laboratory Results - last 24 hr 02/07/25 02/07/25 05:02 09:27 WBC 10.0 RBC 3.50 L Hgb 8.9 L D 8.5 L Hct 28.6 L 26.7 L MCV 82 MCH 25.4 MCHC 31.1 RDW Std Deviation 47.2 H Plt Count 357 D Neut % (Auto) 69 Lymph % (Auto) 18 [place] % (Auto) 12 Eos % (Auto) 1 Baso % (Auto) 0 Neut # (Auto) 6.9 Lymph # (Auto) 1.8 [place] # (Auto) 1.2 H Eos # (Auto) 0.1 Baso # (Auto) 0.0 Immature Gran # (Auto) 0.03 H Absolute Nucleated RBC 0.00 Immature Gran % 0 Nucleated RBC % 0 Sodium 136 Potassium 4.3 Chloride 104 Carbon Dioxide 25.1 Anion Gap 7 BUN 18 Creatinine 3.1 H D Estim Creat Clear Calc 14.0 L eGFR 15 L BUN/Creatinine Ratio 6 L Glucose 132 H Calculated Osmolality 275 Calcium 8.5 Corrected Calcium 8.7 Phosphorus 5.7 H Magnesium 1.9 Total Bilirubin 0.3 AST 19 ALT 11 Alkaline Phosphatase 72 D Total Protein 6.5 Albumin 3.8 Globulin 2.7 Albumin/Globulin Ratio 1.4 Quality Measures Quality Measures none Advance care planning discussed with:: patient Assessment & Plan Assessment Current Active Medications: Generic Name Dose Route Start Last Admin Trade Name Freq PRN Reason Stop Dose Admin Acetaminophen 650 mg 02/05/25 15:28 Acetaminophen 325 Mg Tablet PO 03/07/25 15:27 Q6H PRN Fever >101.5 Acetaminophen 650 mg 02/06/25 09:51 02/07/25 07:58 Acetaminophen 325 Mg Tablet PO 03/08/25 09:50 650 mg Q6HR PRN Administration Pain 1-4 Hydrocodone Bitart/Acetaminophen 1 tab 02/06/25 09:51 02/06/25 23:36 Hydrocodone/Apap 10/325 Tab PO 02/11/25 09:50 1 tab Q6HR PRN Administration Pain 6-10 Alprazolam 0.5 mg 02/05/25 16:40 02/07/25 12:01 Alprazolam 0.25 Mg Tablet PO 02/10/25 16:39 0.5 mg BID PRN Administration ANXIETY Amlodipine Besylate 5 mg 02/06/25 09:00 02/07/25 08:21 Amlodipine Besylate 5 Mg Tablet PO 03/08/25 08:59 5 mg QDAY EMMETT Administration Apixaban 5 mg 02/05/25 21:00 02/07/25 08:24 Apixaban 2.5 Mg Tablet PO 03/07/25 20:59 5 mg BID EMMETT Administration Dextrose 25 ml 02/05/25 17:40 Dextrose 50%-Water Inj 50 Ml Syringe IV 03/07/25 17:39 Q15MIN PRN BG 50-70 responsive npo pt Dextrose 50 ml 02/05/25 17:40 Dextrose 50%-Water Inj 50 Ml Syringe IV 03/07/25 17:39 Q15MIN PRN BG <50 OR BG <70 & pt unresponsive Duloxetine HCl 60 mg 02/06/25 09:00 02/07/25 07:59 Duloxetine Hcl 30 Mg Capsule PO 03/08/25 08:59 60 mg QDAY EMMETT Administration Glucagon 1 mg 02/05/25 17:40 Glucagon Inj 1 Mg Vial IM Q15MIN PRN BG <70, and no IV access Metronidazole 500 mg in 100 mls @ 200 mls/hr 02/05/25 22:00 02/07/25 05:19 Flagyl 500 Mg Iv IV 02/12/25 21:59 200 mls/hr Q8HR EMMETT Administration Ciprofloxacin/Dextrose 400 mg in 200 mls @ 200 mls/hr 02/05/25 21:00 02/07/25 07:59 Cipro Ivpb IV 02/12/25 20:59 200 mls/hr Q12HR EMMETT Administration Sodium Chloride 1,000 mls @ 70 mls/hr 02/07/25 11:45 02/07/25 12:01 Ns IV 03/09/25 11:44 70 mls/hr .[id number] EMMETT Administration Insulin Human Lispro 0 unit 02/06/25 07:30 02/07/25 12:06 Insulin Lispro (Admelog) 1 Unit/0.01 Ml Unit SC 03/08/25 07:29 Not Given AC EMMETT Protocol Labetalol HCl 10 mg 02/05/25 17:45 Labetalol Inj 5 Mg/Ml Vial 20 Ml IVP 03/07/25 17:44 Q4H PRN SBP > 170 or DBP > 100 Levothyroxine Sodium 50 mcg 02/06/25 06:00 02/07/25 05:19 Levothyroxine Sodium 25 Mcg Tablet PO 03/08/25 05:59 50 mcg ACBR EMMETT Administration Lisinopril 20 mg 02/05/25 17:45 02/07/25 07:59 Lisinopril 20 Mg Tablet PO 03/07/25 17:44 20 mg QDAY EMMETT Administration Metoclopramide HCl 5 mg 02/07/25 08:01 Metoclopramide Inj 5 Mg/Ml Vial 2 Ml IVP 03/09/25 08:00 Q6H PRN NAUSEA OR VOMITING Protocol Pantoprazole Sodium 40 mg 02/06/25 21:00 02/07/25 07:59 Pantoprazole 40 Mg Tablet PO 03/08/25 20:59 40 mg BID EMMETT Administration Simethicone 80 mg 02/07/25 09:53 02/07/25 12:01 Simethicone 80 Mg Chew PO 03/09/25 09:52 80 mg QID PRN Administration GAS Sucralfate 1 gm 02/06/25 07:15 02/07/25 05:18 Sucralfate Susp 1 Gm/10 Ml Udc PO 03/08/25 07:14 1 gm TID EMMETT Administration Plan Summary: Ms. Temple is a 78-year-old female with history of atrial fibrillation, hypertension, diabetes, duodenal ulcer, chronic pain, multiple surgeries for chronic back pain, diverticulosis, IBS and sleep apnea who presented to [facility] with a chief complaint of abdominal pain. Patient admitted for colitis. # Diverticulitis of sigmoid colon # Hx of Diverticulosis # Diarrhea # IBS by History # Hx of Duodenal ulcer Pain likely related to divirticulitis vs pud. Patient with history of diverticulosis and IBS On admission patient presented with complain of abdominal pain with associated symptoms of chills and non-bloody diarrhea CT abdomen pelvis indicated mild sigmoid diverticulitis with no abscess outpatient GI Dr Osuna Plan: -Continue ciprofloxacin and Flagyl IV (02/05/25 - ) -Start Simethicone for bloating -Start MiraLAX -Recommend high fiber diet -Continue LR 70 cc/h -Follow CBC CMP in a.m. -Follow up blood culture -Zofran IV PRN for nausea/vomiting -Protonix 40 mg IV BID -Pending FOBT #GOOD Ddx: ATN 2/2 ischemia -She had several episodes of hypotension and acute-onset anemia of unknown source during her hospital stay, likely resulting in ATN. - Nephrology consult: Patient has BUN 27, Cr 3.4, and eGFR 13, which signifies significant renal function decrease as compared to her admit lab values of BUN, Cr, and eGFR of 3, 1.0, and 58 respectively. Given the patient's diarrhea, the patient was most likely dehydrated, but had elevated BP due to her pain. Once her pain was controlled, it is likely that her BP decreased, which in addition to her dehydrated status prior to admission, resulted in decreased blood flow to the kidneys. The decreased blood flow likely caused ATN, which ultimately showed up in a delayed manner on her labs. - Labs: Cr 3.1, eGFR 15 (02/09) improvement from day before. Plan: ? Renally dose meds, avoid overdiuresis and NEPHROTOXINS ? Daily CMP - Hold lisinopril 20mg daily - IV NS 0.9% 125ml/h - Nephrology recommends: -- Ordered urine Na, urine Cr, and urine protein. -- Avoid nephrotoxic drugs. -- Recommend continuing IV hydration. -- Will continue to monitor renal function. -- Nephrology will continue to follow. #Acute Normocytic Anemia -Cause unclear, no obvious source of bleed. -No reported blood in stool or dark stool. -Pt has high risk for GI bleed given diverticular disease as stated above. -Labs 02/07: Hgb 8.5, drop from 12.7 yesterday; Hgb 9.6, MCV 81 (02/09) -serum iron 64, TIBC 348, iron saturation 18 (L) (02/07) -vit B12 805, folate >24 (02/07) -FOBT negative (02/08) Plan: -Hold Eliquis -Repeat CBC in AM -Transfuse if Hgb <8.0 -FeSO4 325mg tab QOD -Pending FOBT, anemia work up (iron, folate/b12, reticulocyte count) # Hypertension On admission patient with BP 179/88; 02/07: BP 127/59; PM7 154/75 On home med benazepril 20 mg Qday Plan: ? Will allow for slightly higher blood pressure to avoid recurrent hypotension -Resume amlodipine 5 mg Qday -Hold lisinopril 20mg daily -Labatelol for SBP > 170 #Diabetes Mellitus Last A1c 6.8% on Jun 2024 glc 138 (AM 02/09) Plan: -SSI+accuchecks -Hypoglycemia protocol # Atrial-fibrillation history, likely paroxysmal -EKG from 02/06 demonstrated sinus rhythm, indicating sudden onset. -[id number] score 5, has bled score 8.9% (high risk for bleed, recommended alternative therapy). Plan: ? Holding ELIQUIS in settings of acute GI bleed ? Will revisit risk/factor of anticoagulation prior to resuming ELIQUIS # Hypothyroidism Plan: -Restart home med levothyroxine 50 mcg # Hx of anxiety # Hx of depression Plan: -Restart PRN alprazolam 0.5 mg BID -Restart home med duloxetine 60 mg Qday Health Maintenance Dispo: Patient admitted for acute diverticulitis requiring IV antibiotics Diet: Clear liquid diet DVT/PPx: SCDs GI ppx: Protonix 40 IV twice daily Lines: PIV Code Status: Full code Case was discussed with attending physician, Dr. Winn, and senior resident Dr. Mock. Marine Ford, DO PGY I Attending Provider Attestation/Addendum I attest that I was physically present for the evaluation, physical examination, lab and imaging review of the patient with the residents. I discussed the case with the residents and agree with the findings and plans of care as documented above. Kaitlin Winn MD
--- NOTE | 2025-02-07 14:38 | PD.RESPRO ---
Documentation for date of: 02/07/25 Exam Vital Signs Temp Pulse Resp BP Pulse Ox O2 Del Method O2 Flow Rate 97.4 F 74 19 127/59 L 96 Room Air 2 02/07/25 11:43 02/07/25 11:43 02/07/25 11:43 02/07/25 11:43 02/07/25 11:43 02/07/25 11:43 02/06/25 12:00 Objective Labs 02/07/25 09:27 02/07/25 05:02 Labs: Laboratory Results - last 24 hr 02/07/25 02/07/25 05:02 09:27 WBC 10.0 RBC 3.50 L Hgb 8.9 L D 8.5 L Hct 28.6 L 26.7 L MCV 82 MCH 25.4 MCHC 31.1 RDW Std Deviation 47.2 H Plt Count 357 D Neut % (Auto) 69 Lymph % (Auto) 18 [place] % (Auto) 12 Eos % (Auto) 1 Baso % (Auto) 0 Neut # (Auto) 6.9 Lymph # (Auto) 1.8 [place] # (Auto) 1.2 H Eos # (Auto) 0.1 Baso # (Auto) 0.0 Immature Gran # (Auto) 0.03 H Absolute Nucleated RBC 0.00 Immature Gran % 0 Nucleated RBC % 0 Sodium 136 Potassium 4.3 Chloride 104 Carbon Dioxide 25.1 Anion Gap 7 BUN 18 Creatinine 3.1 H D Estim Creat Clear Calc 14.0 L eGFR 15 L BUN/Creatinine Ratio 6 L Glucose 132 H Calculated Osmolality 275 Calcium 8.5 Corrected Calcium 8.7 Phosphorus 5.7 H Magnesium 1.9 Total Bilirubin 0.3 AST 19 ALT 11 Alkaline Phosphatase 72 D Total Protein 6.5 Albumin 3.8 Globulin 2.7 Albumin/Globulin Ratio 1.4 Quality Measures Quality Measures none Assessment & Plan Assessment Current Active Medications: Generic Name Dose Route Start Last Admin Trade Name Freq PRN Reason Stop Dose Admin Acetaminophen 650 mg 02/05/25 15:28 Acetaminophen 325 Mg Tablet PO 03/07/25 15:27 Q6H PRN Fever >101.5 Acetaminophen 650 mg 02/06/25 09:51 02/07/25 07:58 Acetaminophen 325 Mg Tablet PO 03/08/25 09:50 650 mg Q6HR PRN Administration Pain 1-4 Hydrocodone Bitart/Acetaminophen 1 tab 02/06/25 09:51 02/06/25 23:36 Hydrocodone/Apap 10/325 Tab PO 02/11/25 09:50 1 tab Q6HR PRN Administration Pain 6-10 Alprazolam 0.5 mg 02/05/25 16:40 02/07/25 12:01 Alprazolam 0.25 Mg Tablet PO 02/10/25 16:39 0.5 mg BID PRN Administration ANXIETY Amlodipine Besylate 5 mg 02/06/25 09:00 02/07/25 08:21 Amlodipine Besylate 5 Mg Tablet PO 03/08/25 08:59 5 mg QDAY EMMETT Administration Apixaban 5 mg 02/05/25 21:00 02/07/25 08:24 Apixaban 2.5 Mg Tablet PO 03/07/25 20:59 5 mg BID EMMETT Administration Dextrose 25 ml 02/05/25 17:40 Dextrose 50%-Water Inj 50 Ml Syringe IV 03/07/25 17:39 Q15MIN PRN BG 50-70 responsive npo pt Dextrose 50 ml 02/05/25 17:40 Dextrose 50%-Water Inj 50 Ml Syringe IV 03/07/25 17:39 Q15MIN PRN BG <50 OR BG <70 & pt unresponsive Duloxetine HCl 60 mg 02/06/25 09:00 02/07/25 07:59 Duloxetine Hcl 30 Mg Capsule PO 03/08/25 08:59 60 mg QDAY EMMETT Administration Glucagon 1 mg 02/05/25 17:40 Glucagon Inj 1 Mg Vial IM Q15MIN PRN BG <70, and no IV access Metronidazole 500 mg in 100 mls @ 200 mls/hr 02/05/25 22:00 02/07/25 14:25 Flagyl 500 Mg Iv IV 02/12/25 21:59 200 mls/hr Q8HR EMMETT Administration Ciprofloxacin/Dextrose 400 mg in 200 mls @ 200 mls/hr 02/05/25 21:00 02/07/25 07:59 Cipro Ivpb IV 02/12/25 20:59 200 mls/hr Q12HR EMMETT Administration Sodium Chloride 1,000 mls @ 70 mls/hr 02/07/25 11:45 02/07/25 12:01 Ns IV 03/09/25 11:44 70 mls/hr .[id number] EMMETT Administration Insulin Human Lispro 0 unit 02/06/25 07:30 02/07/25 12:06 Insulin Lispro (Admelog) 1 Unit/0.01 Ml Unit SC 03/08/25 07:29 Not Given AC EMMETT Protocol Labetalol HCl 10 mg 02/05/25 17:45 Labetalol Inj 5 Mg/Ml Vial 20 Ml IVP 03/07/25 17:44 Q4H PRN SBP > 170 or DBP > 100 Levothyroxine Sodium 50 mcg 02/06/25 06:00 02/07/25 05:19 Levothyroxine Sodium 25 Mcg Tablet PO 03/08/25 05:59 50 mcg ACBR EMMETT Administration Lisinopril 20 mg 02/05/25 17:45 02/07/25 07:59 Lisinopril 20 Mg Tablet PO 03/07/25 17:44 20 mg QDAY EMMETT Administration Metoclopramide HCl 5 mg 02/07/25 08:01 Metoclopramide Inj 5 Mg/Ml Vial 2 Ml IVP 03/09/25 08:00 Q6H PRN NAUSEA OR VOMITING Protocol Pantoprazole Sodium 40 mg 02/06/25 21:00 02/07/25 07:59 Pantoprazole 40 Mg Tablet PO 03/08/25 20:59 40 mg BID EMMETT Administration Simethicone 80 mg 02/07/25 09:53 02/07/25 12:01 Simethicone 80 Mg Chew PO 03/09/25 09:52 80 mg QID PRN Administration GAS Sucralfate 1 gm 02/06/25 07:15 02/07/25 14:24 Sucralfate Susp 1 Gm/10 Ml Udc PO 03/08/25 07:14 1 gm TID EMMETT Administration
--- NOTE | 2025-02-07 15:04 | PC.SS ---
Rounding note: patient is continued treatment for anemia and GOOD. Possible d/c tomorrow.
[2025-02-07 15:21] LABS: Immature Reticulocyte Fraction 22.8 % (3.0-15.9); Reticulocyte % (Auto) 1.9 % (0.5-1.5); Reticulocyte Absolute Auto 62.9 Biln/L (25.0-75.0); Reticulocyte Hgb Content 25.5 pg (28.0-35.0)
[2025-02-07 15:30] LABS: Iron 64 mcg/dL (50-170); Percent Iron Saturation 18 % (20-55); Total Iron Binding Capacity 348 mcg/dL (250-425); Unsaturated Iron Binding 284 (225-295)
[2025-02-07 15:37] LABS: Folate > 24.00 ng/mL (>5.38); Vitamin B12 805 pg/mL (211-911)
--- NOTE | 2025-02-07 16:56 | PC.PT ---
Patient is going home tomorrow. Patient were already transferring to the restroom. Confirmed by OFFAL ICER POULTRY. PT not warranted at this time.
[2025-02-07] MEDS: POLYETHYLENE GLYCOL 17 GM PACKET PO (20:58)
[2025-02-07 22:49] LABS: Hematocrit 26.6 % (36.0-46.0)
[2025-02-07 22:52] LABS: Hemoglobin 8.8 g/dL (12.0-16.0)
[2025-02-07 23:07] LABS: Albumin, Serum 4.0 gm/dL (3.4-4.8); Anion Gap 10 (7-16); BUN/Creatinine Ratio 8 Ratio (12-20); Blood Urea Nitrogen 25 mg/dL (9-23); Calcium 8.7 mg/dL (8.3-10.6); Calcium (Corrected) 8.7 mg/dL (8.5-10.1); Carbon Dioxide 23.3 mMol/L (20.0-31.0); Chloride 101 mMol/L (98-107); Creatinine (Component) 3.1 mg/dL (0.6-1.3); Estimated Creatinine Clearance 14.0 mL/min (>60); Glucose 161 mg/dL (74-106); Osmolality,Calculated 275 (275-295); Phosphorous 4.7 mg/dL (2.4-5.1); Potassium 3.7 mMol/L (3.4-5.1); Sodium 134 mMol/L (136-145); eGFR 15 See Note
[2025-02-08] VITALS (11 sets, daily range): BP systolic 108–153; BP diastolic 42–78; PULSE 75–97; RESP 17–95; TEMP 36.2–36.6; O2SAT 91–95
[2025-02-08] MEDS: SODIUM CHLORIDE 0.9% 1000 ML 1,000 ML 70 ML IV (05:42)
[2025-02-08] MEDS: LEVOTHYROXINE SODIUM 25 MCG TABLET 50 MCG PO (05:43)
[2025-02-08] MEDS: metroNIDAZOLE/NS 500 MG IVPB 500 MG/100 ML BAG 200 MG IV ×3 (05:43→22:23)
[2025-02-08 06:14] LABS: Basophils # (Auto) 0.0 Thou/mm3 (0.0-0.2); Basophils % (Auto) 1 % (0-2.5); Eosinophils # (Auto) 0.1 Thou/mm3 (0.0-0.5); Eosinophils % (Auto) 1 % (0-10); Hematocrit 27.1 % (36.0-46.0); Immature Granulocytes Auto 0.02 Thou/mm3 (0.00-0.00); Lymphocytes # (Auto) 1.3 Thou/mm3 (1.0-4.8); Lymphocytes % (Auto) 15 % (10-50); Mean Corpuscular HGB Conc 31.7 g/dl (31.0-37.0); Mean Corpuscular Hemoglobin 26.2 pg (25.0-35.0); Mean Corpuscular Volume 83 fL (80-100); Monocytes # (Auto) 1.0 Thou/mm3 (0.0-0.8); Monocytes % (Auto) 12 % (0-12); Neutrophils # (Auto) 6.0 Thou/mm3 (1.8-7.7); Neutrophils % (Auto) 71 % (37-80); Nucleated Red Blood Cell # 0.00 Thou/mm3 (0.00-0.00); Nucleated Red Blood Cell % 0 /100 WBC (0); Platelet Count 357 Thou/mm3 (140-440); RDW Standard Deviation 46.9 fL (36.4-46.3); Red Blood Count 3.28 Miln/mm3 (4.00-5.20); White Blood Count 8.5 Thou/mm3 (3.6-11.0)
[2025-02-08 06:51] LABS: INR 1.0 (0.9-1.3); Partial Thromboplastin Time 28.4 Seconds (22.0-36.0); Prothrombin Time 11.3 Seconds (9.0-12.2)
[2025-02-08 06:52] LABS: Hemoglobin 8.6 g/dL (12.0-16.0)
[2025-02-08 07:14] LABS: Alanine Aminotransferase 10 U/L (10-49); Albumin, Serum 3.6 gm/dL (3.4-4.8); Albumin/Globulin Ratio 1.4 (1.2-2.2); Alkaline Phosphatase 67 U/L (46-116); Anion Gap 10 (7-16); Aspartate Amino Transferase 17 U/L (0-34); BUN/Creatinine Ratio 6 Ratio (12-20); Bilirubin,Total 0.2 mg/dL (0.3-1.2); Blood Urea Nitrogen 22 mg/dL (9-23); Calcium 8.4 mg/dL (8.3-10.6); Calcium (Corrected) 8.7 mg/dL (8.5-10.1); Carbon Dioxide 21.3 mMol/L (20.0-31.0); Chloride 108 mMol/L (98-107); Creatinine (Component) 3.4 mg/dL (0.6-1.3); Estimated Creatinine Clearance 12.8 mL/min (>60); Globulin 2.6 gm/dL (2.3-3.5); Glucose 157 mg/dL (74-106); Magnesium 1.8 mg/dL (1.6-2.6); Osmolality,Calculated 283 (275-295); Phosphorous 4.9 mg/dL (2.4-5.1); Potassium 4.0 mMol/L (3.4-5.1); Sodium 139 mMol/L (136-145); Total Protein 6.2 gm/dL (5.7-8.2); eGFR 13 See Note
[2025-02-08] MEDS: POLYETHYLENE GLYCOL 17 GM PACKET PO (08:42)
[2025-02-08] MEDS: PANTOPRAZOLE 40 MG TABLET PO ×2 (08:42→21:06)
[2025-02-08] MEDS: DULoxetine HCL 30 MG CAPSULE 60 MG PO (08:43)
[2025-02-08] MEDS: CIPROFLOXACIN/D5w 400 MG IVPB 400 MG/200 ML BAG 200 MG IV ×2 (08:43→21:06)
[2025-02-08] MEDS: INSULIN LISPRO (AdmeLOG) 1 UNIT/0.01 ML UNIT SC ×2 (08:43→11:26)
[2025-02-08] MEDS: SIMETHICONE 80 MG CHEW PO (09:01)
--- NOTE | 2025-02-08 09:50 | ESPR_ITS ---
<Statement entered by Esme Mock MD - 02/08/25 22:13> Managed for diverticulitis and peptic ulcer disease, continued on ANTIBIOTICS and PROTONIX. Currently advancing diet, pain controlled. Also here for new GOOD, likely ATN secondary to hypotension. Nephrology is following, recommended IVF's, and trending renal function. Hemoglobin around 8.6, and stable. FOBT was negative. She was allowed, we started iron supplements. Close and folate are normal. Reticulocyte count is normal. Documentation for date of: 02/08/25 Subjective Subjective Interval history: No significant overnight event. Original abdominal discomfort is improving. Pt had bowel movements in AM, of normal form and sizable amount. Reports improvement in bloating from simethicone. Denies diarrhea, or fevers. Vitals stable. Labs revealed Cr 3.4, .3 higher from yesterday, and eGFR 13, 2 points lower from yesterday, confirmatory to GOOD. Pt reports no changes to her urinary frequency, dysuria, oliguria, or kidney pain. Hgb 8.6 down from 12.7 two days ago, suggesting acute-onset anemia. Pt denies noticing blood in stool. Patient being treated for diverticulitis. Patient on clear liquid diet. On physical exam still mild tenderness of RLQ and LLQ. We will continue IV antibiotics. Exam Vital Signs Temp Pulse Resp BP Pulse Ox O2 Del Method O2 Flow Rate 97.3 F 83 20 150/64 H 91 L Room Air 2 02/08/25 04:00 02/08/25 08:42 02/08/25 04:00 02/08/25 08:42 02/08/25 04:00 02/08/25 04:00 02/06/25 12:00 Narrative Exam Constitutional: well-developed, well-nourished, in mild distress, lying in bed HEENT: NCAT, EOMI, reactive round pupils b/l, patent nares b/l, moist mucous membranes Lung: CTAB, no wheezing, no rhonchi Heart: Regular S1S2, no murmurs, gallops, or rubs Abdomen: Soft, non-distended, RLQ and LLQ abdomen tenderness on palpation, bowel sounds present Extremities: No cyanosis, clubbing, or edema, LE pulses present b/l Neurologic: No focal sensory or motor deficits noted, AOx3, appropriate affect Skin: Warm, dry, no lesions or rashes noted Objective Labs 02/09/25 05:26 02/09/25 05:26 Labs: Laboratory Results - last 24 hr 02/07/25 02/07/25 02/08/25 09:27 22:18 05:49 WBC 8.5 RBC 3.28 L Hgb 8.5 L 8.8 L 8.6 L Hct 26.7 L 26.6 L 27.1 L MCV 83 MCH 26.2 MCHC 31.7 RDW Std Deviation 46.9 H Plt Count 357 Neut % (Auto) 71 Lymph % (Auto) 15 [place] % (Auto) 12 Eos % (Auto) 1 Baso % (Auto) 1 Neut # (Auto) 6.0 Lymph # (Auto) 1.3 [place] # (Auto) 1.0 H Eos # (Auto) 0.1 Baso # (Auto) 0.0 Immature Gran # (Auto) 0.02 H Absolute Nucleated RBC 0.00 Immature Gran % 0 Nucleated RBC % 0 Retic Count (auto) 1.9 H Absolute Retic 62.9 Immature Retic Fraction 22.8 H Retic Hgb Content CHr 25.5 L PT 11.3 INR 1.0 APTT 28.4 Sodium 134 L 139 Potassium 3.7 D 4.0 Chloride 101 108 H Carbon Dioxide 23.3 21.3 Anion Gap 10 10 BUN 25 H 22 Creatinine 3.1 H 3.4 H Estim Creat Clear Calc 14.0 L 12.8 L eGFR 15 L 13 L* BUN/Creatinine Ratio 8 L 6 L Glucose 161 H 157 H Calculated Osmolality 275 283 Calcium 8.7 8.4 Corrected Calcium 8.7 8.7 Phosphorus 4.7 4.9 Magnesium 1.8 Iron 64 TIBC 348 Iron Saturation 18 L Unsat Iron Binding 284 Total Bilirubin 0.2 L AST 17 ALT 10 Alkaline Phosphatase 67 Total Protein 6.2 Albumin 4.0 3.6 Globulin 2.6 Albumin/Globulin Ratio 1.4 Vitamin B12 805 Folate > 24.00 Quality Measures Quality Measures none Advance care planning discussed with:: patient Assessment & Plan Assessment Current Active Medications: Generic Name Dose Route Start Last Admin Trade Name Freq PRN Reason Stop Dose Admin Acetaminophen 650 mg 02/05/25 15:28 Acetaminophen 325 Mg Tablet PO 03/07/25 15:27 Q6H PRN Fever >101.5 Acetaminophen 650 mg 02/06/25 09:51 02/07/25 20:59 Acetaminophen 325 Mg Tablet PO 03/08/25 09:50 650 mg Q6HR PRN Administration Pain 1-4 Hydrocodone Bitart/Acetaminophen 1 tab 02/06/25 09:51 02/06/25 23:36 Hydrocodone/Apap 10/325 Tab PO 02/11/25 09:50 1 tab Q6HR PRN Administration Pain 6-10 Alprazolam 0.5 mg 02/05/25 16:40 02/07/25 20:58 Alprazolam 0.25 Mg Tablet PO 02/10/25 16:39 0.5 mg BID PRN Administration ANXIETY Amlodipine Besylate 5 mg 02/06/25 09:00 02/08/25 08:42 Amlodipine Besylate 5 Mg Tablet PO 03/08/25 08:59 5 mg QDAY EMMETT Administration Apixaban 5 mg 02/05/25 21:00 02/07/25 08:24 Apixaban 2.5 Mg Tablet PO 03/07/25 20:59 5 mg BID EMMETT Administration Dextrose 25 ml 02/05/25 17:40 Dextrose 50%-Water Inj 50 Ml Syringe IV 03/07/25 17:39 Q15MIN PRN BG 50-70 responsive npo pt Dextrose 50 ml 02/05/25 17:40 Dextrose 50%-Water Inj 50 Ml Syringe IV 03/07/25 17:39 Q15MIN PRN BG <50 OR BG <70 & pt unresponsive Duloxetine HCl 60 mg 02/06/25 09:00 02/08/25 08:43 Duloxetine Hcl 30 Mg Capsule PO 03/08/25 08:59 60 mg QDAY EMMETT Administration Glucagon 1 mg 02/05/25 17:40 Glucagon Inj 1 Mg Vial IM Q15MIN PRN BG <70, and no IV access Metronidazole 500 mg in 100 mls @ 200 mls/hr 02/05/25 22:00 02/08/25 05:43 Flagyl 500 Mg Iv IV 02/12/25 21:59 200 mls/hr Q8HR EMMETT Administration Ciprofloxacin/Dextrose 400 mg in 200 mls @ 200 mls/hr 02/05/25 21:00 02/08/25 08:43 Cipro Ivpb IV 02/12/25 20:59 200 mls/hr Q12HR EMMETT Administration Sodium Chloride 1,000 mls @ 125 mls/hr 02/08/25 08:45 Ns IV 03/10/25 08:44 .Q8H EMMETT Insulin Human Lispro 0 unit 02/06/25 07:30 02/08/25 08:43 Insulin Lispro (Admelog) 1 Unit/0.01 Ml Unit SC 03/08/25 07:29 2 unit AC EMMETT Administration Protocol Labetalol HCl 10 mg 02/05/25 17:45 Labetalol Inj 5 Mg/Ml Vial 20 Ml IVP 03/07/25 17:44 Q4H PRN SBP > 170 or DBP > 100 Levothyroxine Sodium 50 mcg 02/06/25 06:00 02/08/25 05:43 Levothyroxine Sodium 25 Mcg Tablet PO 03/08/25 05:59 50 mcg ACBR EMMETT Administration Lisinopril 20 mg 02/05/25 17:45 02/07/25 07:59 Lisinopril 20 Mg Tablet PO 03/07/25 17:44 20 mg QDAY EMMETT Administration Metoclopramide HCl 5 mg 02/07/25 08:01 Metoclopramide Inj 5 Mg/Ml Vial 2 Ml IVP 03/09/25 08:00 Q6H PRN NAUSEA OR VOMITING Protocol Pantoprazole Sodium 40 mg 02/06/25 21:00 02/08/25 08:42 Pantoprazole 40 Mg Tablet PO 03/08/25 20:59 40 mg BID EMMETT Administration Polyethylene Glycol 17 gm 02/07/25 18:45 02/08/25 08:42 Polyethylene Glycol 17 Gm Packet PO 03/09/25 18:44 17 gm QDAY EMMETT Administration Simethicone 80 mg 02/07/25 09:53 02/08/25 09:01 Simethicone 80 Mg Chew PO 03/09/25 09:52 80 mg QID PRN Administration GAS Sucralfate 1 gm 02/06/25 07:15 02/07/25 14:24 Sucralfate Susp 1 Gm/10 Ml Udc PO 03/08/25 07:14 1 gm TID EMMETT Administration Plan Summary: Ms. Temple is a 78-year-old female with history of atrial fibrillation, hypertension, diabetes, duodenal ulcer, chronic pain, multiple surgeries for chronic back pain, diverticulosis, IBS and sleep apnea who presented to [facility] with a chief complaint of abdominal pain. Patient admitted for colitis. # Diverticulitis of sigmoid colon # Hx of Diverticulosis # Diarrhea # IBS by History # Hx of Duodenal ulcer Pain likely related to divirticulitis vs pud. Patient with history of diverticulosis and IBS On admission patient presented with complain of abdominal pain with associated symptoms of chills and non-bloody diarrhea CT abdomen pelvis indicated mild sigmoid diverticulitis with no abscess Blood ctx did not show growth of bacteria. outpatient GI Dr Osuna Plan: -Continue ciprofloxacin and Flagyl IV (02/05/25 - ) -Resume Simethicone for bloating -Resume MiraLAX -Recommend high fiber diet, biofiber in AM per outpatient GI recs -Continue LR 70 cc/h -Follow CBC CMP in a.m. -Follow up blood culture -Zofran IV PRN for nausea/vomiting -Protonix 40 mg IV BID -Pending FOBT #GOOD Ddx: ATN 2/2 ischemia -She had several episodes of hypotension and acute-onset anemia of unknown source during her hospital stay, likely resulting in ATN. - Labs 02/07: Cr 3.1, eGFR 15. 7/: Cr 3.4, eGFR 13 Plan: ? Renally dose meds, avoid overdiuresis and NEPHROTOXINS ? Daily CMP - Hold lisinopril 20mg daily - Continue LR 70cc/h - Nephrology consulted #Acute Normocytic Anemia -Cause unclear, no obvious source of bleed. -No reported blood in stool or dark stool. -Pt has high risk for GI bleed given diverticular disease as stated above. -Labs 02/07: Hgb 8.5, drop from 12.7 yesterday; 02/08 Hgb 8.6, MCV 83 Plan: -Hold Eliquis -Repeat CBC in AM -Transfuse if Hgb <8.0 -Pending FOBT, anemia work up (iron, folate/b12, reticulocyte count) # Hypertension On admission patient with BP 179/88; 02/07: BP 127/59 On home med benazepril 20 mg Qday Plan: ? Will allow for slightly higher blood pressure to avoid recurrent hypotension -Resume amlodipine 5 mg Qday -Hold lisinopril 20mg daily -Labatelol for SBP > 170 #Diabetes Mellitus Last A1c 6.8% on Jun 2024 Plan: -SSI+accuchecks -Hypoglycemia protocol # Atrial-fibrillation history, likely paroxysmal -EKG from 02/06 demonstrated sinus rhythm, indicating sudden onset. -[id number] score 5, has bled score 8.9% (high risk for bleed, recommended alternative therapy). Plan: ? Holding ELIQUIS in settings of acute GI bleed ? Will revisit risk/factor of anticoagulation prior to resuming ELIQUIS # Hypothyroidism Plan: -Restart home med levothyroxine 50 mcg # Hx of anxiety # Hx of depression Plan: -Restart PRN alprazolam 0.5 mg BID -Restart home med duloxetine 60 mg Qday Health Maintenance Dispo: Patient admitted for acute diverticulitis requiring IV antibiotics Diet: Clear liquid diet DVT/PPx: SCDs GI ppx: Protonix 40 IV twice daily Lines: PIV Code Status: Full code Case was discussed with attending physician, Dr. Winn, and senior resident Dr Mock. Marine Ford, DO PGY I Attending Provider Attestation/Addendum I attest that I was physically present for the evaluation, physical examination, lab and imaging review of the patient with the residents. I discussed the case with the residents and agree with the findings and plans of care as documented above. Kaitlin Winn MD
[2025-02-08] MEDS: SODIUM CHLORIDE 0.9% 1000 ML 1,000 ML 125 ML IV ×2 (09:58→15:31)
[2025-02-08 11:39] LABS: OBS Developer Expiration Date 2027-02-28; OBS Developer Lot # 4-24-551749; OBS Performed By YANGS1; OBS QC OK? Yes
[2025-02-08 11:46] LABS: Occult Blood, Stool Negative (Negative)
--- NOTE | 2025-02-08 12:20 | PC.NURSE ---
Received call from [facility] in lab stating patient is refusing lab draw for renal panel. RN went to talk to patient, she stated she does not want anymore tests done. Patient refusing echocardiogram states she had one done probably within 6 months with resistance welder Dr. Reza and everything was okay. Patient refusing nephrology consult. Patient states she has an established relationship with Dr. Reza, Dr. Osuna and Dr. Langford and would rather follow up with them. Called Dr. Winn and made him aware of situation.
[2025-02-08 13:36] LABS: Albumin, Serum 4.1 gm/dL (3.4-4.8); Anion Gap 7 (7-16); BUN/Creatinine Ratio 8 Ratio (12-20); Blood Urea Nitrogen 27 mg/dL (9-23); Calcium 8.6 mg/dL (8.3-10.6); Calcium (Corrected) 8.6 mg/dL (8.5-10.1); Carbon Dioxide 25.2 mMol/L (20.0-31.0); Chloride 109 mMol/L (98-107); Creatinine (Component) 3.4 mg/dL (0.6-1.3); Estimated Creatinine Clearance 12.8 mL/min (>60); Glucose 113 mg/dL (74-106); Osmolality,Calculated 287 (275-295); Phosphorous 4.5 mg/dL (2.4-5.1); Potassium 4.3 mMol/L (3.4-5.1); Sodium 141 mMol/L (136-145); eGFR 13 See Note
[2025-02-08] MEDS: ACETAMINOPHEN 325 MG TABLET 650 MG PO ×2 (15:31→22:22)
--- NOTE | 2025-02-08 15:48 | PD.RESCONSUL ---
HPI Data of Consult Consult date: 02/08/25 Requesting Physician: Kaitlin Winn MD Admitting Provider: Wale Lindsay MD Attending Provider: Kaitlin Winn MD Primary Care Provider: Tyrone Langford MD Consult Narrative Reason for consult: new GOOD w/ Cr 3.0 History of present illness: Mrs. Temple is a pleasant 79 year old lady with a relevant medical history of A-fib on Eliquis, HTN, duodenal ulcer, diverticulosis, T2DM, hypothyroidism, and IBS, who presented to [facility] on 02/05/25 with abdominal pain and diarrhea. CT abdomen without contrast showed sigmoid diverticulitis, resulting in admission. On admission, her BUN was 13, Cr was 1.0, and eGFR was 58. Nephrology was consulted due to concerns of new onset GOOD as the patient had a sharp decrease in renal function on 02/07/25. At that time, her BUN, Cr, and eGFR were 18, 3.1, and 15 respectively. The patient denies any sudden changes on 02/07. She did not experience any sudden injury to her flank area, experience any sudden flank pain, nor notice any difficulty urinating or pain on urination. She does have pain in her lower lumbar spine area, but this is not new for her. The patient stated that she has never had any issues with her kidneys in the past. She does have a history of UTIs, but she stated that they have all been simple UTIs that were easily resolved with oral antibiotics taken in the outpatient setting. She has never had any sort of pyelonephritis that she is aware of. Her abdomen CT without contrast taken 02/05 did not suggest any acute signs of renal injury, only positive for bilateral renal parenchymal scar formation. The patient did note that she normally takes Benzopril 20mg daily at home, but was swapped to Lisinopril 20mg daily in the hospital on admission. In light of her new onset GOOD, the Lisinopril has since been held. During chart review, it was noted that Mrs. Temple had a drop in her blood pressure overnight on 02/06 00:00 with a recording of 91/53. Prior to this, the patient's blood pressure was elevated, with her pain likely contributing to this elevated blood pressure, with her last elevated blood pressuring being 147/67 on 02/05/25 at 20:00. Mrs. Temple initially did not want to see Nephrology as she felt anxious and confused about her situation. The patient later changed her mind and was very willing to discuss her situation with the Nephrology team. cc:: cc: Kaitlin Winn MD Review of Systems Review of Systems Narrative Review of Systems: General: Denies fevers or chills HEENT: Denies congestion or sore throat Heart: Denies chest pain or palpitations Lungs: Denies shortness of breath or cough Abdomen: Denies abdominal pain, nausea, vomiting, constipation, diarrhea, or blood in stool Genitourinary: Denies frequency, urgency, dysuria, or hematuria Neurology: Denies any changes in vision, weakness or difficulty speaking Review of systems otherwise negative except what is mentioned above. Exam Vital Signs Temp Pulse Resp BP Pulse Ox O2 Del Method O2 Flow Rate 97.8 F 95 17 153/78 H 93 L Room Air 2 02/08/25 16:00 02/08/25 16:00 02/08/25 16:00 02/08/25 16:00 02/08/25 16:00 02/08/25 12:00 02/06/25 12:00 Results Labs 02/09/25 05:26 02/09/25 05:26 Labs: Short CBC 02/07/25 02/08/25 Range/Units 22:18 05:49 WBC 8.5 (3.6-11.0) Thou/mm3 Hgb 8.8 L 8.6 L (12.0-16.0) g/dL Hct 26.6 L 27.1 L (36.0-46.0) % Plt Count 357 (140-440) Thou/mm3 BMP 02/07/25 02/08/25 02/08/25 22:18 05:49 13:00 Sodium 134 L 139 141 Potassium 3.7 D 4.0 4.3 Chloride 101 108 H 109 H Carbon Dioxide 23.3 21.3 25.2 BUN 25 H 22 27 H Creatinine 3.1 H 3.4 H 3.4 H Glucose 161 H 157 H 113 H Calcium 8.7 8.4 8.6 Liver Function 02/07/25 02/08/25 02/08/25 Range/Units 22:18 05:49 13:00 Total Bilirubin 0.2 L (0.3-1.2) mg/dL AST 17 (0-34) U/L ALT 10 (10-49) U/L Alkaline Phosphatase 67 (46-116) U/L Albumin 4.0 3.6 4.1 D (3.4-4.8) gm/dL Quality Measures Quality Measures none Advance care planning discussed with:: patient Medications Home Medications and Allergies Home Medications ?Medication ?Instructions ?Recorded ?Confirmed ?Type Bifidobacterium infantis 4 mg 4 mg PO DAILY 06/27/23 02/05/25 History capsule (Align (B.infantis)) acetaminophen 500 mg tablet 500 mg PO PRN PRN Pain 06/27/23 02/05/25 History cholecalciferol (vitamin D3) 25 25 mcg PO 1XD 06/27/23 02/05/25 History mcg (1,000 unit) tablet (Vitamin D3) levothyroxine 50 mcg tablet 50 mcg PO DAILY 06/27/23 02/05/25 History metformin 500 mg tablet 500 mg PO DAILY 06/27/23 02/05/25 History duloxetine 60 mg capsule,delayed 60 mg PO QDAY 08/23/23 02/06/25 History release alprazolam 0.5 mg tablet 0.5 mg PO BID PRN Anxiety 10/28/23 02/05/25 History benazepril 20 mg tablet 20 mg PO QDAY 10/28/23 02/05/25 History loperamide 2 mg capsule 2 mg PO QDAY 10/28/23 02/06/25 History pantoprazole 40 mg tablet,delayed 40 mg PO BID 10/28/23 02/05/25 History release apixaban 5 mg tablet (Eliquis) 5 mg PO QDAY 06/11/24 02/05/25 History alprazolam 0.5 mg tablet (Xanax) 0.5 mg PO TID PRN anxiety 02/05/25 02/05/25 History ascorbic acid (vitamin C) 500 mg 500 mg PO QDAY 02/05/25 02/05/25 History tablet (Vitamin C) duloxetine 60 mg capsule,delayed 60 mg PO QDAY 02/05/25 02/05/25 History release (Cymbalta) Allergies Allergy/AdvReac Type Severity Reaction Status Date / Time amoxicillin (From Augmentin) Allergy Severe Hives Verified 02/05/25 11:11 aspirin Allergy Severe Abdominal Verified 02/05/25 11:11 Pain ciprofloxacin (From Cipro) Allergy Severe Gastrointestinal Verified 02/05/25 11:11 Upset clavulanic acid (From Allergy Severe Hives Verified 02/05/25 11:11 Augmentin) codeine Allergy Severe Nausea Verified 02/05/25 11:11 fluconazole Allergy Severe Rash Verified 02/05/25 11:11 gabapentin Allergy Severe Abdominal Verified 02/05/25 11:11 Pain ketorolac (From Toradol) Allergy Severe Abdominal Verified 02/05/25 11:11 Pain nalbuphine Allergy Severe Abdominal Verified 02/05/25 11:11 Pain Sulfa (Sulfonamide Allergy Severe Hives Verified 02/05/25 11:11 Antibiotics) tizanidine Allergy Severe Rash Verified 02/05/25 11:11 tramadol Allergy Severe Rash Verified 02/05/25 11:11 Visit Medications Acetaminophen (Acetaminophen 325 Mg Tablet) 650 mg PO Q6H PRN PRN Reason: Fever >101.5 Stop: 03/07/25 15:27 Acetaminophen (Acetaminophen 325 Mg Tablet) 650 mg PO Q6HR PRN PRN Reason: Pain 1-4 Stop: 03/08/25 09:50 Last Admin: 02/08/25 15:31 Dose: 650 mg Hydrocodone Bitart/Acetaminophen (Hydrocodone/Apap 10/325 Tab) 1 tab PO Q6HR PRN PRN Reason: Pain 6-10 Stop: 02/11/25 09:50 Last Admin: 02/06/25 23:36 Dose: 1 tab Alprazolam (Alprazolam 0.25 Mg Tablet) 0.5 mg PO BID PRN PRN Reason: ANXIETY Stop: 02/10/25 16:39 Last Admin: 02/08/25 09:57 Dose: 0.5 mg Amlodipine Besylate (Amlodipine Besylate 5 Mg Tablet) 5 mg PO QDAY EMMETT Stop: 03/08/25 08:59 Last Admin: 02/08/25 08:42 Dose: 5 mg Apixaban (Apixaban 2.5 Mg Tablet) 5 mg PO BID EMMETT Stop: 03/07/25 20:59 Last Admin: 02/07/25 08:24 Dose: 5 mg Dextrose (Dextrose 50%-Water Inj 50 Ml Syringe) 25 ml IV Q15MIN PRN PRN Reason: BG 50-70 responsive npo pt Stop: 03/07/25 17:39 Dextrose (Dextrose 50%-Water Inj 50 Ml Syringe) 50 ml IV Q15MIN PRN PRN Reason: BG <50 OR BG <70 & pt unresponsive Stop: 03/07/25 17:39 Duloxetine HCl (Duloxetine Hcl 30 Mg Capsule) 60 mg PO QDAY COUNTS INCLUDE 234 BEDS AT THE [facility] Stop: 03/08/25 08:59 Last Admin: 02/08/25 08:43 Dose: 60 mg Glucagon (Glucagon Inj 1 Mg Vial) 1 mg IM Q15MIN PRN PRN Reason: BG <70, and no IV access Metronidazole (Flagyl 500 Mg Iv) 500 mg in 100 mls @ 200 mls/hr IV Q8HR COUNTS INCLUDE 234 BEDS AT THE [facility] Stop: 02/12/25 21:59 Last Admin: 02/08/25 15:24 Dose: 200 mls/hr Ciprofloxacin/Dextrose (Cipro Ivpb) 400 mg in 200 mls @ 200 mls/hr IV Q12HR COUNTS INCLUDE 234 BEDS AT THE [facility] Stop: 02/12/25 20:59 Last Admin: 02/08/25 08:43 Dose: 200 mls/hr Sodium Chloride (Ns) 1,000 mls @ 125 mls/hr IV .Q8H COUNTS INCLUDE 234 BEDS AT THE [facility] Stop: 03/10/25 08:44 Last Admin: 02/08/25 15:31 Dose: 125 mls/hr Insulin Human Lispro (Insulin Lispro (Admelog) 1 Unit/0.01 Ml Unit) 0 unit SC AC COUNTS INCLUDE 234 BEDS AT THE [facility]; Protocol Stop: 03/08/25 07:29 Last Admin: 02/08/25 17:12 Dose: Not Given Labetalol HCl (Labetalol Inj 5 Mg/Ml Vial 20 Ml) 10 mg IVP Q4H PRN PRN Reason: SBP > 170 or DBP > 100 Stop: 03/07/25 17:44 Levothyroxine Sodium (Levothyroxine Sodium 25 Mcg Tablet) 50 mcg PO ACBR COUNTS INCLUDE 234 BEDS AT THE [facility] Stop: 03/08/25 05:59 Last Admin: 02/08/25 05:43 Dose: 50 mcg Lisinopril (Lisinopril 20 Mg Tablet) 20 mg PO QDAY COUNTS INCLUDE 234 BEDS AT THE [facility] Stop: 03/07/25 17:44 Last Admin: 02/07/25 07:59 Dose: 20 mg Metoclopramide HCl (Metoclopramide Inj 5 Mg/Ml Vial 2 Ml) 5 mg IVP Q6H PRN; Protocol PRN Reason: NAUSEA OR VOMITING Stop: 03/09/25 08:00 Pantoprazole Sodium (Pantoprazole 40 Mg Tablet) 40 mg PO BID EMMETT Stop: 03/08/25 20:59 Last Admin: 02/08/25 08:42 Dose: 40 mg Polyethylene Glycol (Polyethylene Glycol 17 Gm Packet) 17 gm PO QDAY EMMETT Stop: 03/09/25 18:44 Last Admin: 02/08/25 08:42 Dose: 17 gm Simethicone (Simethicone 80 Mg Chew) 80 mg PO QID PRN PRN Reason: GAS Stop: 03/09/25 09:52 Last Admin: 02/08/25 09:01 Dose: 80 mg Sucralfate (Sucralfate Susp 1 Gm/10 Ml Udc) 1 gm PO TID EMMETT Stop: 03/08/25 07:14 Last Admin: 02/07/25 14:24 Dose: 1 gm Discontinued Medications Bisacodyl (Bisacodyl 10 Mg Supp) 10 mg GA X1 ONE; Protocol Stop: 02/06/25 12:08 Last Admin: 02/06/25 13:04 Dose: 10 mg Heparin Sodium (Porcine) (Heparin Sod Inj 5000 Unit/Ml Vial) 5,000 unit SC Q8HR EMMETT Stop: 02/19/25 21:59 Hydromorphone HCl (Hydromorphone Inj 2 Mg/Ml Vial) 1 mg IVP X1 ONE Stop: 02/05/25 14:47 Last Admin: 02/05/25 15:56 Dose: 1 mg Hydromorphone HCl (Hydromorphone Inj 2 Mg/Ml Vial) 1 mg IVP Q4H PRN PRN Reason: PAIN Stop: 02/10/25 15:27 Last Admin: 02/06/25 02:28 Dose: 1 mg Hydromorphone HCl (Hydromorphone Inj 2 Mg/Ml Vial) 1 mg IVP X1 ONE Stop: 02/06/25 05:13 Last Admin: 02/06/25 05:18 Dose: 1 mg Hydromorphone HCl (Hydromorphone Inj 2 Mg/Ml Vial) 1 mg IVP Q6H PRN PRN Reason: PAIN Stop: 02/10/25 15:27 Ciprofloxacin/Dextrose (Cipro Ivpb) 400 mg in 200 mls @ 200 mls/hr IV X1 ONE Stop: 02/05/25 16:29 Last Infusion: 02/05/25 19:30 Dose: Infused Metronidazole (Flagyl 500 Mg Iv) 500 mg in 100 mls @ 100 mls/hr IV X1 ONE Stop: 02/05/25 15:43 Last Infusion: 02/05/25 19:30 Dose: Infused Ciprofloxacin/Dextrose (Cipro Ivpb) 400 mg in 200 mls @ 200 mls/hr IV Q12HR COUNTS INCLUDE 234 BEDS AT THE [facility] Stop: 02/13/25 08:59 Metronidazole (Flagyl 500 Mg Iv) 500 mg in 100 mls @ 200 mls/hr IV Q8HR COUNTS INCLUDE 234 BEDS AT THE [facility] Stop: 02/13/25 08:59 Lactated Ringer's (Lactated Ringers) 1,000 mls @ 70 mls/hr IV .[id number] COUNTS INCLUDE 234 BEDS AT THE [facility] Stop: 03/08/25 08:23 Last Admin: 02/07/25 05:22 Dose: 70 mls/hr Sodium Chloride (Ns) 1,000 mls @ 70 mls/hr IV .[id number] COUNTS INCLUDE 234 BEDS AT THE [facility] Stop: 03/09/25 11:44 Last Admin: 02/08/25 05:42 Dose: 70 mls/hr Labetalol HCl (Labetalol Inj 5 Mg/Ml Vial 20 Ml) 10 mg IVP X1 ONE Stop: 02/05/25 15:03 Last Admin: 02/05/25 17:22 Dose: 10 mg Metoclopramide HCl (Metoclopramide Inj 5 Mg/Ml Vial 2 Ml) 10 mg IVP Q6H PRN; Protocol PRN Reason: NAUSEA OR VOMITING Stop: 03/07/25 15:27 Last Admin: 02/06/25 13:13 Dose: 10 mg Pantoprazole Sodium (Pantoprazole Inj 40 Mg Vial) 40 mg IVP Q12HR COUNTS INCLUDE 234 BEDS AT THE [facility] Stop: 03/07/25 20:59 Last Admin: 02/06/25 09:04 Dose: 40 mg Prochlorperazine Maleate (Prochlorperazine Maleate 5 Mg Tablet) 5 mg PO X1 ONE Stop: 02/05/25 14:49 Last Admin: 02/05/25 17:27 Dose: 5 mg Simethicone (Simethicone 80 Mg Chew) 80 mg PO X1 ONE Stop: 02/06/25 05:59 Last Admin: 02/06/25 06:18 Dose: 80 mg Assessment & Plan Plan Mrs. Temple is a pleasant 79 year old lady with a relevant medical history of A-fib on Eliquis, HTN, duodenal ulcer, diverticulosis, T2DM, hypothyroidism, and IBS, who presented to [facility] on 02/05/25 with abdominal pain and diarrhea. Nephrology was consulted due to concerns of new onset GOOD. #New onset GOOD due to ATN 2/2 ischemia Patient has BUN 27, Cr 3.4, and eGFR 13, which signifies significant renal function decrease as compared to her admit lab values of BUN, Cr, and eGFR of 3, 1.0, and 58 respectively. Given the patient's diarrhea, the patient was most likely dehydrated, but had elevated BP due to her pain. Once her pain was controlled, it is likely that her BP decreased, which in addition to her dehydrated status prior to admission, resulted in decreased blood flow to the kidneys. The decreased blood flow likely caused ATN, which ultimately showed up in a delayed manner on her labs. If this is the case, then her decreased renal function will plateau and slowly recover with adequate hydration. - Ordered urine Na, urine Cr, and urine protein. - Avoid nephrotoxic drugs. - Recommend continuing IV hydration. - Will continue to monitor renal function. - Nephrology will continue to follow. Patient was discussed with the Nephrology attending, Dr. Chambers. Thank you for allowing us to participate in the care of this patient. Adrian Harmon, PGY-1 Attending Provider Attestation/Addendum Pt is seen and examined. labs reviewed. notes reviewed. agree with assessment and plan and findings of resident. Jesus Chambers MD
--- NOTE | 2025-02-08 16:27 | PC.SS ---
Rounding note: treating for GOOD, patient is pending ultrasound of the kidney.
--- NOTE | 2025-02-08 16:28 | PC.SS ---
Rounding note: pending kidney function improvement, Dr. Chambers following
[2025-02-08 23:50] LABS: Creatinine,Random Urine 34 mg/dL (30-125); Protein Total, Random Urine 18 mg/dL (1-14); Sodium,Urine Random 68.9 mMol/L (20.0-110.0)
[2025-02-09] VITALS (7 sets, daily range): BP systolic 133–169; BP diastolic 58–82; PULSE 69–104; RESP 18–19; TEMP 36.1–36.5; O2SAT 92–97; BMI 34.7
[2025-02-09] MEDS: SODIUM CHLORIDE 0.9% 1000 ML 1,000 ML 125 ML IV ×3 (01:25→21:27)
[2025-02-09] MEDS: LEVOTHYROXINE SODIUM 25 MCG TABLET 50 MCG PO (05:14)
[2025-02-09] MEDS: metroNIDAZOLE/NS 500 MG IVPB 500 MG/100 ML BAG 200 MG IV ×3 (05:14→22:16)
[2025-02-09 06:12] LABS: Basophils # (Auto) 0.0 Thou/mm3 (0.0-0.2); Basophils % (Auto) 0 % (0-2.5); Eosinophils # (Auto) 0.1 Thou/mm3 (0.0-0.5); Eosinophils % (Auto) 1 % (0-10); Hematocrit 29.3 % (36.0-46.0); Hemoglobin 9.6 g/dL (12.0-16.0); Immature Granulocytes Auto 0.04 Thou/mm3 (0.00-0.00); Lymphocytes # (Auto) 1.7 Thou/mm3 (1.0-4.8); Lymphocytes % (Auto) 18 % (10-50); Mean Corpuscular HGB Conc 32.8 g/dl (31.0-37.0); Mean Corpuscular Hemoglobin 26.6 pg (25.0-35.0); Mean Corpuscular Volume 81 fL (80-100); Monocytes # (Auto) 1.1 Thou/mm3 (0.0-0.8); Monocytes % (Auto) 11 % (0-12); Neutrophils # (Auto) 6.7 Thou/mm3 (1.8-7.7); Neutrophils % (Auto) 69 % (37-80); Nucleated Red Blood Cell # 0.00 Thou/mm3 (0.00-0.00); Nucleated Red Blood Cell % 0 /100 WBC (0); Platelet Count 376 Thou/mm3 (140-440); RDW Standard Deviation 46.8 fL (36.4-46.3); Red Blood Count 3.61 Miln/mm3 (4.00-5.20); White Blood Count 9.7 Thou/mm3 (3.6-11.0)
[2025-02-09 06:53] LABS: Alanine Aminotransferase 11 U/L (10-49); Albumin, Serum 3.9 gm/dL (3.4-4.8); Albumin/Globulin Ratio 1.4 (1.2-2.2); Alkaline Phosphatase 70 U/L (46-116); Anion Gap 10 (7-16); Aspartate Amino Transferase 16 U/L (0-34); BUN/Creatinine Ratio 8 Ratio (12-20); Bilirubin,Total 0.3 mg/dL (0.3-1.2); Blood Urea Nitrogen 24 mg/dL (9-23); Calcium 8.4 mg/dL (8.3-10.6); Calcium (Corrected) 8.5 mg/dL (8.5-10.1); Carbon Dioxide 20.2 mMol/L (20.0-31.0); Chloride 112 mMol/L (98-107); Creatinine (Component) 3.1 mg/dL (0.6-1.3); Estimated Creatinine Clearance 14.0 mL/min (>60); Globulin 2.8 gm/dL (2.3-3.5); Glucose 138 mg/dL (74-106); Magnesium 1.9 mg/dL (1.6-2.6); Osmolality,Calculated 289 (275-295); Phosphorous 4.8 mg/dL (2.4-5.1); Potassium 4.0 mMol/L (3.4-5.1); Sodium 142 mMol/L (136-145); Total Protein 6.7 gm/dL (5.7-8.2); eGFR 15 See Note
--- NOTE | 2025-02-09 08:05 | ESPR_ITS ---
<Statement entered by Esme Mock MD - 02/09/25 20:42> Summary: She was admitted for diverticulitis and PUD, continued on ANTIBIOTICS, symptoms resolved. Tolerating oral intake without nausea, vomiting or abdominal pain. She had GOOD, likely ATN in settings of hypotension. Nephrology on board, we continued with IV fluids. Kidney function is progressively returning, creatinine downtrending, urine output is adequate. She has no signs of volume overload, will continue with IV fluids and watch renal function. Allowing for slightly higher blood pressure to prevent further hypotensive episodes. Workup for anemia showed low iron stores, normal B12/folate, reticulocyte count slightly elevated, although there is no signs of active bleed, FOBT was negative. Initiated iron supplements. Hgb stable around 8.5. She is otherwise asymptomatic. PT evaluated today, no further intervention warranted. Case was discussed with attending physician. Esme Mock DO PGY II This document was transcribed using voice recognition technology. Minor inaccuracies may be present. Documentation for date of: 02/09/25 Subjective Subjective Interval history: No significant overnight event. Original abdominal discomfort is improving. Pt had bowel movements in AM, of normal form and sizable amount. Reports improvement in bloating from simethicone. Denies diarrhea, or fevers. Vitals stable. Labs revealed Cr 3.4, .3 higher from yesterday, and eGFR 13, 2 points lower from yesterday, confirmatory to GOOD. Pt reports no changes to her urinary frequency, dysuria, oliguria, or kidney pain. Hgb 8.6 down from 12.7 two days ago, suggesting acute-onset anemia. Pt denies noticing blood in stool. Patient being treated for diverticulitis. Patient on clear liquid diet. On physical exam still mild tenderness of RLQ and LLQ. We will continue IV antibiotics. Exam Vital Signs Temp Pulse Resp BP Pulse Ox O2 Del Method O2 Flow Rate 97.1 F 72 19 133/58 H 92 L Room Air 2 02/09/25 04:00 02/09/25 04:00 02/09/25 04:00 02/09/25 04:00 02/09/25 04:00 02/09/25 04:00 02/06/25 12:00 Narrative Exam Constitutional: well-developed, well-nourished, in mild distress, lying in bed HEENT: NCAT, EOMI, reactive round pupils b/l, patent nares b/l, moist mucous membranes Lung: CTAB, no wheezing, no rhonchi Heart: Regular S1S2, no murmurs, gallops, or rubs Abdomen: Soft, non-distended, RLQ and LLQ abdomen tenderness on palpation, bowel sounds present Extremities: No cyanosis, clubbing, or edema, LE pulses present b/l Neurologic: No focal sensory or motor deficits noted, AOx3, appropriate affect Skin: Warm, dry, no lesions or rashes noted Objective Labs 02/09/25 05:26 02/09/25 05:26 Labs: Laboratory Results - last 24 hr 02/08/25 02/08/25 02/08/25 08:52 13:00 21:16 WBC RBC Hgb Hct MCV MCH MCHC RDW Std Deviation Plt Count Neut % (Auto) Lymph % (Auto) [place] % (Auto) Eos % (Auto) Baso % (Auto) Neut # (Auto) Lymph # (Auto) [place] # (Auto) Eos # (Auto) Baso # (Auto) Immature Gran # (Auto) Absolute Nucleated RBC Immature Gran % Nucleated RBC % Sodium 141 Potassium 4.3 Chloride 109 H Carbon Dioxide 25.2 Anion Gap 7 BUN 27 H Creatinine 3.4 H Estim Creat Clear Calc 12.8 L eGFR 13 L* BUN/Creatinine Ratio 8 L Glucose 113 H Calculated Osmolality 287 Calcium 8.6 Corrected Calcium 8.6 Phosphorus 4.5 Magnesium Total Bilirubin AST ALT Alkaline Phosphatase Total Protein Albumin 4.1 D Globulin Albumin/Globulin Ratio Ur Random Creatinine 34 U Random Total Protein 18 H Ur Random Sodium 68.9 Stool Occult Blood Negative 02/09/25 05:26 WBC 9.7 RBC 3.61 L Hgb 9.6 L Hct 29.3 L MCV 81 MCH 26.6 MCHC 32.8 RDW Std Deviation 46.8 H Plt Count 376 Neut % (Auto) 69 Lymph % (Auto) 18 [place] % (Auto) 11 Eos % (Auto) 1 Baso % (Auto) 0 Neut # (Auto) 6.7 Lymph # (Auto) 1.7 [place] # (Auto) 1.1 H Eos # (Auto) 0.1 Baso # (Auto) 0.0 Immature Gran # (Auto) 0.04 H Absolute Nucleated RBC 0.00 Immature Gran % 0 Nucleated RBC % 0 Sodium 142 Potassium 4.0 Chloride 112 H Carbon Dioxide 20.2 Anion Gap 10 BUN 24 H Creatinine 3.1 H Estim Creat Clear Calc 14.0 L eGFR 15 L BUN/Creatinine Ratio 8 L Glucose 138 H Calculated Osmolality 289 Calcium 8.4 Corrected Calcium 8.5 Phosphorus 4.8 Magnesium 1.9 Total Bilirubin 0.3 AST 16 ALT 11 Alkaline Phosphatase 70 Total Protein 6.7 Albumin 3.9 Globulin 2.8 Albumin/Globulin Ratio 1.4 Ur Random Creatinine U Random Total Protein Ur Random Sodium Stool Occult Blood Quality Measures Quality Measures none Advance care planning discussed with:: patient Assessment & Plan Assessment Current Active Medications: Generic Name Dose Route Start Last Admin Trade Name Freq PRN Reason Stop Dose Admin Acetaminophen 650 mg 02/05/25 15:28 Acetaminophen 325 Mg Tablet PO 03/07/25 15:27 Q6H PRN Fever >101.5 Acetaminophen 650 mg 02/06/25 09:51 02/08/25 22:22 Acetaminophen 325 Mg Tablet PO 03/08/25 09:50 650 mg Q6HR PRN Administration Pain 1-4 Hydrocodone Bitart/Acetaminophen 1 tab 02/06/25 09:51 02/06/25 23:36 Hydrocodone/Apap 10/325 Tab PO 02/11/25 09:50 1 tab Q6HR PRN Administration Pain 6-10 Alprazolam 0.5 mg 02/05/25 16:40 02/08/25 22:22 Alprazolam 0.25 Mg Tablet PO 02/10/25 16:39 0.5 mg BID PRN Administration ANXIETY Amlodipine Besylate 5 mg 02/06/25 09:00 02/08/25 08:42 Amlodipine Besylate 5 Mg Tablet PO 03/08/25 08:59 5 mg QDAY EMMETT Administration Apixaban 5 mg 02/05/25 21:00 02/07/25 08:24 Apixaban 2.5 Mg Tablet PO 03/07/25 20:59 5 mg BID EMMETT Administration Dextrose 25 ml 02/05/25 17:40 Dextrose 50%-Water Inj 50 Ml Syringe IV 03/07/25 17:39 Q15MIN PRN BG 50-70 responsive npo pt Dextrose 50 ml 02/05/25 17:40 Dextrose 50%-Water Inj 50 Ml Syringe IV 03/07/25 17:39 Q15MIN PRN BG <50 OR BG <70 & pt unresponsive Duloxetine HCl 60 mg 02/06/25 09:00 02/08/25 08:43 Duloxetine Hcl 30 Mg Capsule PO 03/08/25 08:59 60 mg QDAY EMMETT Administration Glucagon 1 mg 02/05/25 17:40 Glucagon Inj 1 Mg Vial IM Q15MIN PRN BG <70, and no IV access Metronidazole 500 mg in 100 mls @ 200 mls/hr 02/05/25 22:00 02/09/25 05:14 Flagyl 500 Mg Iv IV 02/12/25 21:59 200 mls/hr Q8HR EMMETT Administration Ciprofloxacin/Dextrose 400 mg in 200 mls @ 200 mls/hr 02/05/25 21:00 02/08/25 21:06 Cipro Ivpb IV 02/12/25 20:59 200 mls/hr Q12HR EMMETT Administration Sodium Chloride 1,000 mls @ 125 mls/hr 02/08/25 08:45 02/09/25 01:25 Ns IV 03/10/25 08:44 125 mls/hr .Q8H EMMETT Administration Insulin Human Lispro 0 unit 02/06/25 07:30 02/08/25 17:12 Insulin Lispro (Admelog) 1 Unit/0.01 Ml Unit SC 03/08/25 07:29 Not Given AC EMMETT Protocol Labetalol HCl 10 mg 02/05/25 17:45 Labetalol Inj 5 Mg/Ml Vial 20 Ml IVP 03/07/25 17:44 Q4H PRN SBP > 170 or DBP > 100 Levothyroxine Sodium 50 mcg 02/06/25 06:00 02/09/25 05:14 Levothyroxine Sodium 25 Mcg Tablet PO 03/08/25 05:59 50 mcg ACBR EMMETT Administration Lisinopril 20 mg 02/05/25 17:45 02/07/25 07:59 Lisinopril 20 Mg Tablet PO 03/07/25 17:44 20 mg QDAY EMMETT Administration Metoclopramide HCl 5 mg 02/07/25 08:01 Metoclopramide Inj 5 Mg/Ml Vial 2 Ml IVP 03/09/25 08:00 Q6H PRN NAUSEA OR VOMITING Protocol Pantoprazole Sodium 40 mg 02/06/25 21:00 02/08/25 21:06 Pantoprazole 40 Mg Tablet PO 03/08/25 20:59 40 mg BID EMMETT Administration Polyethylene Glycol 17 gm 02/07/25 18:45 02/08/25 08:42 Polyethylene Glycol 17 Gm Packet PO 03/09/25 18:44 17 gm QDAY EMMETT Administration Simethicone 80 mg 02/07/25 09:53 02/08/25 09:01 Simethicone 80 Mg Chew PO 03/09/25 09:52 80 mg QID PRN Administration GAS Sucralfate 1 gm 02/06/25 07:15 02/07/25 14:24 Sucralfate Susp 1 Gm/10 Ml Udc PO 03/08/25 07:14 1 gm TID EMMETT Administration Plan Summary: Ms. Temple is a 78-year-old female with history of atrial fibrillation, hypertension, diabetes, duodenal ulcer, chronic pain, multiple surgeries for chronic back pain, diverticulosis, IBS and sleep apnea who presented to [facility] with a chief complaint of abdominal pain. Patient admitted for colitis. # Diverticulitis of sigmoid colon # Hx of Diverticulosis # Diarrhea # IBS by History # Hx of Duodenal ulcer Pain likely related to divirticulitis vs pud. Patient with history of diverticulosis and IBS On admission patient presented with complain of abdominal pain with associated symptoms of chills and non-bloody diarrhea CT abdomen pelvis indicated mild sigmoid diverticulitis with no abscess Blood ctx did not show growth of bacteria. outpatient GI Dr Osuna Plan: -Continue ciprofloxacin and Flagyl IV (02/05/25 - ) -Resume Simethicone for bloating -Resume MiraLAX -Recommend high fiber diet, biofiber in AM per outpatient GI recs -Continue LR 70 cc/h -Follow CBC CMP in a.m. -Follow up blood culture -Zofran IV PRN for nausea/vomiting -Protonix 40 mg IV BID -Pending FOBT #GOOD Ddx: ATN 2/2 ischemia -She had several episodes of hypotension and acute-onset anemia of unknown source during her hospital stay, likely resulting in ATN. - Labs 02/07: Cr 3.1, eGFR 15. 7/2: Cr 3.4, eGFR 13 Plan: ? Renally dose meds, avoid overdiuresis and NEPHROTOXINS ? Daily CMP - Hold lisinopril 20mg daily - Continue LR 70cc/h - Nephrology consulted #New onset GOOD due to ATN 2/2 ischemia Patient has BUN 27, Cr 3.4, and eGFR 13, which signifies significant renal function decrease as compared to her admit lab values of BUN, Cr, and eGFR of 3, 1.0, and 58 respectively. Given the patient's diarrhea, the patient was most likely dehydrated, but had elevated BP due to her pain. Once her pain was controlled, it is likely that her BP decreased, which in addition to her dehydrated status prior to admission, resulted in decreased blood flow to the kidneys. The decreased blood flow likely caused ATN, which ultimately showed up in a delayed manner on her labs. If this is the case, then her decreased renal function will plateau and slowly recover with adequate hydration. - Ordered urine Na, urine Cr, and urine protein. - Avoid nephrotoxic drugs. - Recommend continuing IV hydration. - Will continue to monitor renal function. - Nephrology will continue to follow. #Acute Normocytic Anemia -Cause unclear, no obvious source of bleed. -No reported blood in stool or dark stool. -Pt has high risk for GI bleed given diverticular disease as stated above. -Labs 02/07: Hgb 8.5, drop from 12.7 yesterday; 02/08 Hgb 8.6, MCV 83; iron sat 18 (L) and serum iron 64 (L) consistent with mild iron deficiency (02/07) vitB12 805 and folate 24 in-range both (02/07) %retic count 1.9 (H) and absolute retic count 62.9 (02/07) FOBT negative Plan: -Hold Eliquis (may stop altogether according to pt-stated cardio consult) -Repeat CBC in AM -Transfuse if Hgb <8.0 # Hypertension On admission patient with BP 179/88; 02/07: BP 127/59 On home med benazepril 20 mg Qday Plan: ? Will allow for slightly higher blood pressure to avoid recurrent hypotension -Resume amlodipine 5 mg Qday -Hold lisinopril 20mg daily -Labatelol for SBP > 170 #Diabetes Mellitus Last A1c 6.8% on Jun 2024 Plan: -SSI+accuchecks -Hypoglycemia protocol # Atrial-fibrillation history, likely paroxysmal -EKG from 02/06 demonstrated sinus rhythm, indicating sudden onset. -[id number] score 5, has bled score 8.9% (high risk for bleed, recommended alternative therapy). Plan: ? Holding ELIQUIS in settings of acute GI bleed ? Will revisit risk/factor of anticoagulation prior to resuming ELIQUIS # Hypothyroidism Plan: -Restart home med levothyroxine 50 mcg # Hx of anxiety # Hx of depression Plan: -Restart PRN alprazolam 0.5 mg BID -Restart home med duloxetine 60 mg Qday Health Maintenance Dispo: Patient admitted for acute diverticulitis requiring IV antibiotics Diet: Clear liquid diet DVT/PPx: SCDs GI ppx: Protonix 40 IV twice daily Lines: PIV Code Status: Full code Case was discussed with attending physician, Dr. Winn, and senior resident Dr Mock. Marine Ford, DO PGY I Attending Provider Attestation/Addendum I attest that I was physically present for the evaluation, physical examination, lab and imaging review of the patient with the residents. I discussed the case with the residents and agree with the findings and plans of care as documented above. Kaitlin Winn MD
[2025-02-09] MEDS: DULoxetine HCL 30 MG CAPSULE 60 MG PO (08:08)
[2025-02-09] MEDS: PANTOPRAZOLE 40 MG TABLET PO ×2 (08:08→21:27)
[2025-02-09] MEDS: INSULIN LISPRO (AdmeLOG) 1 UNIT/0.01 ML UNIT SC ×2 (08:09→11:30)
[2025-02-09] MEDS: CIPROFLOXACIN/D5w 400 MG IVPB 400 MG/200 ML BAG 200 MG IV ×2 (08:10→21:27)
[2025-02-09] MEDS: APIXABAN 2.5 MG TABLET 5 MG PO ×2 (08:45→21:26)
[2025-02-09] MEDS: FERROUS SULF 325 MG TABLET PO (08:45)
[2025-02-09] MEDS: ACETAMINOPHEN 325 MG TABLET 650 MG PO ×2 (14:19→22:16)
[2025-02-09] MEDS: METOCLOPRAMIDE INJ 5 MG/ML VIAL 2 ML IVP (15:23)
--- NOTE | 2025-02-09 15:25 | PC.SS ---
rounding note: New onset of GOOD. Patient remains on i.v. antibiotics. D/c plan: home
[2025-02-09] MEDS: SIMETHICONE 80 MG CHEW PO (15:38)
--- NOTE | 2025-02-09 17:31 | PD.RESPRO ---
Documentation for date of: 02/09/25 Subjective Subjective Interval history: Overnight events: No acute events overnight Patient was seen and examined at bedside. AM vitals and labs reviewed. Renal function lab values improving. BUN 24, Cr 3.1, eGFR 15. Patient endorses multiple trips to the bathroom to urinate. Patient stated she is actively drinking plenty of water. No complaints at this time. Discussed seeking followup with Nephrology outpatient. Review of systems otherwise negative except for what is mentioned above. Exam Vital Signs Temp Pulse Resp BP Pulse Ox O2 Del Method O2 Flow Rate 97.2 F 75 18 142/66 H 95 Room Air 2 02/09/25 16:00 02/09/25 16:00 02/09/25 16:00 02/09/25 16:00 02/09/25 16:00 02/09/25 16:00 02/06/25 12:00 Narrative Exam Physical Exam: General: Alert, no acute distress. Skin: Warm, dry, intact, no obvious rash. Head: Normocephalic, atraumatic. Eye: Normal conjunctiva, PERRL. Throat: Oral mucosa moist. No obvious lesions in oropharynx. Respiratory: Respirations unlabored on room air. Neuro: No focal deficits observed. Conversant, moving all extremities. No overt cerebellar signs/incoordination. Psychiatric: Cooperative, appropriate affect. Objective Labs 02/11/25 02:13 02/11/25 02:13 Labs: Laboratory Results - last 24 hr 02/08/25 02/09/25 21:16 05:26 WBC 9.7 RBC 3.61 L Hgb 9.6 L Hct 29.3 L MCV 81 MCH 26.6 MCHC 32.8 RDW Std Deviation 46.8 H Plt Count 376 Neut % (Auto) 69 Lymph % (Auto) 18 [place] % (Auto) 11 Eos % (Auto) 1 Baso % (Auto) 0 Neut # (Auto) 6.7 Lymph # (Auto) 1.7 [place] # (Auto) 1.1 H Eos # (Auto) 0.1 Baso # (Auto) 0.0 Immature Gran # (Auto) 0.04 H Absolute Nucleated RBC 0.00 Immature Gran % 0 Nucleated RBC % 0 Sodium 142 Potassium 4.0 Chloride 112 H Carbon Dioxide 20.2 Anion Gap 10 BUN 24 H Creatinine 3.1 H Estim Creat Clear Calc 14.0 L eGFR 15 L BUN/Creatinine Ratio 8 L Glucose 138 H Calculated Osmolality 289 Calcium 8.4 Corrected Calcium 8.5 Phosphorus 4.8 Magnesium 1.9 Total Bilirubin 0.3 AST 16 ALT 11 Alkaline Phosphatase 70 Total Protein 6.7 Albumin 3.9 Globulin 2.8 Albumin/Globulin Ratio 1.4 Ur Random Creatinine 34 U Random Total Protein 18 H Ur Random Sodium 68.9 Quality Measures Quality Measures none Advance care planning discussed with:: patient Assessment & Plan Assessment Current Active Medications: Generic Name Dose Route Start Last Admin Trade Name Freq PRN Reason Stop Dose Admin Acetaminophen 650 mg 02/05/25 15:28 Acetaminophen 325 Mg Tablet PO 03/07/25 15:27 Q6H PRN Fever >101.5 Acetaminophen 650 mg 02/06/25 09:51 02/09/25 14:19 Acetaminophen 325 Mg Tablet PO 03/08/25 09:50 650 mg Q6HR PRN Administration Pain 1-4 Hydrocodone Bitart/Acetaminophen 1 tab 02/06/25 09:51 02/06/25 23:36 Hydrocodone/Apap 10/325 Tab PO 02/11/25 09:50 1 tab Q6HR PRN Administration Pain 6-10 Alprazolam 0.5 mg 02/05/25 16:40 02/09/25 08:06 Alprazolam 0.25 Mg Tablet PO 02/10/25 16:39 0.5 mg BID PRN Administration ANXIETY Amlodipine Besylate 5 mg 02/06/25 09:00 02/09/25 08:08 Amlodipine Besylate 5 Mg Tablet PO 03/08/25 08:59 5 mg QDAY EMMETT Administration Apixaban 5 mg 02/05/25 21:00 02/09/25 08:45 Apixaban 2.5 Mg Tablet PO 03/07/25 20:59 5 mg BID EMMETT Administration Dextrose 25 ml 02/05/25 17:40 Dextrose 50%-Water Inj 50 Ml Syringe IV 03/07/25 17:39 Q15MIN PRN BG 50-70 responsive npo pt Dextrose 50 ml 02/05/25 17:40 Dextrose 50%-Water Inj 50 Ml Syringe IV 03/07/25 17:39 Q15MIN PRN BG <50 OR BG <70 & pt unresponsive Duloxetine HCl 60 mg 02/06/25 09:00 02/09/25 08:08 Duloxetine Hcl 30 Mg Capsule PO 03/08/25 08:59 60 mg QDAY EMMETT Administration Ferrous Sulfate 325 mg 02/09/25 08:30 02/09/25 08:55 Ferrous Sulf 325 Mg Tablet PO 03/11/25 08:29 Not Given QOD EMMETT Glucagon 1 mg 02/05/25 17:40 Glucagon Inj 1 Mg Vial IM Q15MIN PRN BG <70, and no IV access Metronidazole 500 mg in 100 mls @ 200 mls/hr 02/05/25 22:00 02/09/25 14:20 Flagyl 500 Mg Iv IV 02/12/25 21:59 200 mls/hr Q8HR EMMETT Administration Ciprofloxacin/Dextrose 400 mg in 200 mls @ 200 mls/hr 02/05/25 21:00 02/09/25 08:10 Cipro Ivpb IV 02/12/25 20:59 200 mls/hr Q12HR EMMETT Administration Sodium Chloride 1,000 mls @ 125 mls/hr 02/08/25 08:45 02/09/25 11:52 Ns IV 03/10/25 08:44 125 mls/hr .Q8H EMMETT Administration Insulin Human Lispro 0 unit 02/06/25 07:30 02/09/25 16:46 Insulin Lispro (Admelog) 1 Unit/0.01 Ml Unit SC 03/08/25 07:29 Not Given AC EMMETT Protocol Labetalol HCl 10 mg 02/05/25 17:45 Labetalol Inj 5 Mg/Ml Vial 20 Ml IVP 03/07/25 17:44 Q4H PRN SBP > 170 or DBP > 100 Levothyroxine Sodium 50 mcg 02/06/25 06:00 02/09/25 05:14 Levothyroxine Sodium 25 Mcg Tablet PO 03/08/25 05:59 50 mcg ACBR EMMETT Administration Lisinopril 20 mg 02/05/25 17:45 02/07/25 07:59 Lisinopril 20 Mg Tablet PO 03/07/25 17:44 20 mg QDAY EMMETT Administration Metoclopramide HCl 5 mg 02/07/25 08:01 02/09/25 15:23 Metoclopramide Inj 5 Mg/Ml Vial 2 Ml IVP 03/09/25 08:00 5 mg Q6H PRN Administration NAUSEA OR VOMITING Protocol Pantoprazole Sodium 40 mg 02/06/25 21:00 07/03/25 08:08 Pantoprazole 40 Mg Tablet PO 03/08/25 20:59 40 mg BID EMMETT Administration Polyethylene Glycol 17 gm 02/07/25 18:45 02/09/25 08:27 Polyethylene Glycol 17 Gm Packet PO 03/09/25 18:44 Not Given QDAY EMMETT Simethicone 80 mg 02/07/25 09:53 02/09/25 15:38 Simethicone 80 Mg Chew PO 03/09/25 09:52 80 mg QID PRN Administration GAS Sucralfate 1 gm 02/06/25 07:15 02/07/25 14:24 Sucralfate Susp 1 Gm/10 Ml Udc PO 03/08/25 07:14 1 gm TID EMMETT Administration Plan Mrs. Temple is a pleasant 79 year old lady with a relevant medical history of A-fib on Eliquis, HTN, duodenal ulcer, diverticulosis, T2DM, hypothyroidism, and IBS, who presented to [facility] on 02/05/25 with abdominal pain and diarrhea. Nephrology was consulted due to concerns of new onset GOOD. #New onset GOOD due to ATN 2/2 ischemia Patient has BUN 27, Cr 3.4, and eGFR 13, which signifies significant renal function decrease as compared to her admit lab values of BUN, Cr, and eGFR of 3, 1.0, and 58 respectively. Given the patient's diarrhea, the patient was most likely dehydrated, but had elevated BP due to her pain. Once her pain was controlled, it is likely that her BP decreased, which in addition to her dehydrated status prior to admission, resulted in decreased blood flow to the kidneys. The decreased blood flow likely caused ATN, which ultimately showed up in a delayed manner on her labs. If this is the case, then her decreased renal function will plateau and slowly recover with adequate hydration. - Avoid nephrotoxic drugs. - Recommend continuing IV hydration. - Will continue to monitor renal function. - Nephrology will continue to follow. Patient was discussed with the Nephrology attending, Dr. Chambers. Thank you for allowing us to participate in the care of this patient. Attending Provider Attestation/Addendum Pt is seen and examined. labs and investigations are reviewed. Agree with assessment and plan and findings by resident. Jesus Chambers MD
--- NOTE | 2025-02-09 23:26 | PC.NURSE ---
RN was notified that the patient was experiencing frequent PVCs, as reported by tele reliability technicians. Patient denies discomfort or pain at this time. Dr. Kruse notified.
[2025-02-10] VITALS (7 sets, daily range): BP systolic 126–176; BP diastolic 59–86; PULSE 75–97; RESP 16–21; TEMP 36.1–36.6; O2SAT 92–98
[2025-02-10] MEDS: Magnesium Sulfate 4 GM Ivpb 4 GM/50 ML BAG IV (01:18)
[2025-02-10] MEDS: LEVOTHYROXINE SODIUM 25 MCG TABLET 50 MCG PO (05:54)
[2025-02-10] MEDS: metroNIDAZOLE/NS 500 MG IVPB 500 MG/100 ML BAG 200 MG IV ×3 (05:55→21:46)
--- NOTE | 2025-02-10 06:35 | PD.RESPRO ---
Documentation for date of: 02/10/25 Subjective Subjective Interval history: Overnight events: No acute events overnight Patient was seen and examined at bedside. AM vitals and labs reviewed. Renal function lab values improving. BUN 24, Cr 3.1, eGFR 15. Patient endorses multiple trips to the bathroom to urinate. Patient stated she is actively drinking plenty of water. No complaints at this time. Discussed seeking followup with Nephrology outpatient. Review of systems otherwise negative except for what is mentioned above. Exam Vital Signs Temp Pulse Resp BP Pulse Ox O2 Del Method O2 Flow Rate 97.3 F 90 17 142/76 H 95 Room Air 2 02/10/25 04:00 02/10/25 04:00 02/10/25 04:00 02/10/25 04:00 02/10/25 04:00 02/10/25 04:00 02/06/25 12:00 Narrative Exam Physical Exam: General: Alert, no acute distress. Skin: Warm, dry, intact, no obvious rash. Head: Normocephalic, atraumatic. Eye: Normal conjunctiva, PERRL. Throat: Oral mucosa moist. No obvious lesions in oropharynx. Respiratory: Respirations unlabored on room air. Neuro: No focal deficits observed. Conversant, moving all extremities. No overt cerebellar signs/incoordination. Psychiatric: Cooperative, appropriate affect. Objective Labs 02/09/25 05:26 02/09/25 05:26 Labs: Laboratory Results - last 24 hr 02/09/25 05:26 Sodium 142 Potassium 4.0 Chloride 112 H Carbon Dioxide 20.2 Anion Gap 10 BUN 24 H Creatinine 3.1 H Estim Creat Clear Calc 14.0 L eGFR 15 L BUN/Creatinine Ratio 8 L Glucose 138 H Calculated Osmolality 289 Calcium 8.4 Corrected Calcium 8.5 Phosphorus 4.8 Magnesium 1.9 Total Bilirubin 0.3 AST 16 ALT 11 Alkaline Phosphatase 70 Total Protein 6.7 Albumin 3.9 Globulin 2.8 Albumin/Globulin Ratio 1.4 Quality Measures Quality Measures none Advance care planning discussed with:: patient Assessment & Plan Assessment Current Active Medications: Generic Name Dose Route Start Last Admin Trade Name Freq PRN Reason Stop Dose Admin Acetaminophen 650 mg 02/05/25 15:28 Acetaminophen 325 Mg Tablet PO 03/07/25 15:27 Q6H PRN Fever >101.5 Acetaminophen 650 mg 02/06/25 09:51 02/09/25 22:16 Acetaminophen 325 Mg Tablet PO 03/08/25 09:50 650 mg Q6HR PRN Administration Pain 1-4 Hydrocodone Bitart/Acetaminophen 1 tab 02/06/25 09:51 02/06/25 23:36 Hydrocodone/Apap 10/325 Tab PO 02/11/25 09:50 1 tab Q6HR PRN Administration Pain 6-10 Alprazolam 0.5 mg 02/05/25 16:40 02/09/25 22:16 Alprazolam 0.25 Mg Tablet PO 02/10/25 16:39 0.5 mg BID PRN Administration ANXIETY Amlodipine Besylate 5 mg 02/06/25 09:00 02/09/25 08:08 Amlodipine Besylate 5 Mg Tablet PO 03/08/25 08:59 5 mg QDAY EMMETT Administration Apixaban 5 mg 02/05/25 21:00 02/09/25 21:26 Apixaban 2.5 Mg Tablet PO 03/07/25 20:59 5 mg BID EMMETT Administration Dextrose 25 ml 02/05/25 17:40 Dextrose 50%-Water Inj 50 Ml Syringe IV 03/07/25 17:39 Q15MIN PRN BG 50-70 responsive npo pt Dextrose 50 ml 02/05/25 17:40 Dextrose 50%-Water Inj 50 Ml Syringe IV 03/07/25 17:39 Q15MIN PRN BG <50 OR BG <70 & pt unresponsive Duloxetine HCl 60 mg 02/06/25 09:00 02/09/25 08:08 Duloxetine Hcl 30 Mg Capsule PO 03/08/25 08:59 60 mg QDAY EMMETT Administration Ferrous Sulfate 325 mg 02/09/25 08:30 02/09/25 08:55 Ferrous Sulf 325 Mg Tablet PO 03/11/25 08:29 Not Given QOD EMMETT Glucagon 1 mg 02/05/25 17:40 Glucagon Inj 1 Mg Vial IM Q15MIN PRN BG <70, and no IV access Metronidazole 500 mg in 100 mls @ 200 mls/hr 02/05/25 22:00 02/10/25 05:55 Flagyl 500 Mg Iv IV 02/12/25 21:59 200 mls/hr Q8HR EMMETT Administration Ciprofloxacin/Dextrose 400 mg in 200 mls @ 200 mls/hr 02/05/25 21:00 02/09/25 21:27 Cipro Ivpb IV 02/12/25 20:59 200 mls/hr Q12HR EMMETT Administration Sodium Chloride 1,000 mls @ 125 mls/hr 02/08/25 08:45 02/09/25 21:27 Ns IV 03/10/25 08:44 125 mls/hr .Q8H EMMETT Administration Insulin Human Lispro 0 unit 02/06/25 07:30 02/09/25 16:46 Insulin Lispro (Admelog) 1 Unit/0.01 Ml Unit SC 03/08/25 07:29 Not Given AC EMMETT Protocol Labetalol HCl 10 mg 02/05/25 17:45 Labetalol Inj 5 Mg/Ml Vial 20 Ml IVP 03/07/25 17:44 Q4H PRN SBP > 170 or DBP > 100 Levothyroxine Sodium 50 mcg 02/06/25 06:00 02/10/25 05:54 Levothyroxine Sodium 25 Mcg Tablet PO 03/08/25 05:59 50 mcg ACBR EMMETT Administration Lisinopril 20 mg 02/05/25 17:45 02/07/25 07:59 Lisinopril 20 Mg Tablet PO 03/07/25 17:44 20 mg QDAY EMMETT Administration Metoclopramide HCl 5 mg 02/07/25 08:01 02/09/25 15:23 Metoclopramide Inj 5 Mg/Ml Vial 2 Ml IVP 03/09/25 08:00 5 mg Q6H PRN Administration NAUSEA OR VOMITING Protocol Pantoprazole Sodium 40 mg 02/06/25 21:00 02/09/25 21:27 Pantoprazole 40 Mg Tablet PO 03/08/25 20:59 40 mg BID EMMETT Administration Polyethylene Glycol 17 gm 02/07/25 18:45 02/09/25 08:27 Polyethylene Glycol 17 Gm Packet PO 03/09/25 18:44 Not Given QDAY EMMETT Simethicone 80 mg 02/07/25 09:53 02/09/25 15:38 Simethicone 80 Mg Chew PO 03/09/25 09:52 80 mg QID PRN Administration GAS Sucralfate 1 gm 02/06/25 07:15 02/07/25 14:24 Sucralfate Susp 1 Gm/10 Ml Udc PO 03/08/25 07:14 1 gm TID EMMETT Administration Plan Mrs. Temple is a pleasant 79 year old lady with a relevant medical history of A-fib on Eliquis, HTN, duodenal ulcer, diverticulosis, T2DM, hypothyroidism, and IBS, who presented to [facility] on 02/05/25 with abdominal pain and diarrhea. Nephrology was consulted due to concerns of new onset GOOD. #New onset GODO due to ATN 2/2 ischemia Patient has BUN 27, Cr 3.4, and eGFR 13, which signifies significant renal function decrease as compared to her admit lab values of BUN, Cr, and eGFR of 3, 1.0, and 58 respectively. Given the patient's diarrhea, the patient was most likely dehydrated, but had elevated BP due to her pain. Once her pain was controlled, it is likely that her BP decreased, which in addition to her dehydrated status prior to admission, resulted in decreased blood flow to the kidneys. The decreased blood flow likely caused ATN, which ultimately showed up in a delayed manner on her labs. If this is the case, then her decreased renal function will plateau and slowly recover with adequate hydration. - Avoid nephrotoxic drugs. - Recommend continuing IV hydration. - Will continue to monitor renal function. - Nephrology will continue to follow. Patient was discussed with the Nephrology attending, Dr. Chambers. Thank you for allowing us to participate in the care of this patient.
--- NOTE | 2025-02-10 06:40 | ESPR_ITS ---
<Statement entered by Esme Mock MD - 02/10/25 18:37> Pleasant 78-year-old female PMHx of atrial fibrillation, HTN, T2DM, PVD, chronic pain, diverticulosis, IBS, sleep apnea, and chronic pain, presenting with a chief complaint of abdominal pain, admitted for diverticulitis. She was treated with IV ANTIBIOTICS, symptoms including abdominal pain resolved, she was tolerating oral intake without nausea or vomiting. Had several episodes of low blood pressure resulting in GOOD/ATN. Nephrology is on board. She continued with IV fluids. Appears to be in the recovery stage with progressive return of renal function, creatinine downtrending, having good urine output. For likely discharge tomorrow 02/11/2025 if renal function close her new baseline. Case was discussed with attending physician. Esme Mock DO PGY II This document was transcribed using voice recognition technology. Minor inaccuracies may be present. Documentation for date of: 02/10/25 Subjective Subjective Interval history: No significant overnight event. Original abdominal discomfort and swelling is improving. Denies N/V, diarrhea, constipation, blood in stool. Denies dysuria. Reports BM of normal consistency and volume daily. No . Able to urinate at a frequency and volume which is normal for her. Drinks fluids as usual. Vitals stable. Labs revealed Cr 2.8 and eGFR 17, both measures showing gradual improvement. Patient being treated for diverticulitis. Patient on clear liquid diet. On physical exam still mild tenderness of RLQ and LLQ. We will continue IV antibiotics. Exam Vital Signs Temp Pulse Resp BP Pulse Ox O2 Del Method O2 Flow Rate 97.3 F 90 17 142/76 H 95 Room Air 2 02/10/25 04:00 02/10/25 04:00 02/10/25 04:00 02/10/25 04:00 02/10/25 04:00 02/10/25 04:00 02/06/25 12:00 Narrative Exam Constitutional: well-developed, well-nourished, in mild distress, lying in bed HEENT: NCAT, EOMI, reactive round pupils b/l, patent nares b/l, moist mucous membranes Lung: CTAB, no wheezing, no rhonchi Heart: Regular S1S2, no murmurs, gallops, or rubs Abdomen: Soft, non-distended, RLQ and LLQ abdomen tenderness on palpation, bowel sounds present Extremities: No cyanosis, clubbing, or edema, LE pulses present b/l Neurologic: No focal sensory or motor deficits noted, AOx3, appropriate affect Skin: Warm, dry, no lesions or rashes noted Objective Labs 02/10/25 07:15 02/10/25 07:15 Labs: Laboratory Results - last 24 hr 02/09/25 05:26 Sodium 142 Potassium 4.0 Chloride 112 H Carbon Dioxide 20.2 Anion Gap 10 BUN 24 H Creatinine 3.1 H Estim Creat Clear Calc 14.0 L eGFR 15 L BUN/Creatinine Ratio 8 L Glucose 138 H Calculated Osmolality 289 Calcium 8.4 Corrected Calcium 8.5 Phosphorus 4.8 Magnesium 1.9 Total Bilirubin 0.3 AST 16 ALT 11 Alkaline Phosphatase 70 Total Protein 6.7 Albumin 3.9 Globulin 2.8 Albumin/Globulin Ratio 1.4 Quality Measures Quality Measures none Advance care planning discussed with:: patient Assessment & Plan Assessment Current Active Medications: Generic Name Dose Route Start Last Admin Trade Name Edenilsonq PRN Reason Stop Dose Admin Acetaminophen 650 mg 02/05/25 15:28 Acetaminophen 325 Mg Tablet PO 03/07/25 15:27 Q6H PRN Fever >101.5 Acetaminophen 650 mg 02/06/25 09:51 02/09/25 22:16 Acetaminophen 325 Mg Tablet PO 03/08/25 09:50 650 mg Q6HR PRN Administration Pain 1-4 Hydrocodone Bitart/Acetaminophen 1 tab 02/06/25 09:51 02/06/25 23:36 Hydrocodone/Apap 10/325 Tab PO 02/11/25 09:50 1 tab Q6HR PRN Administration Pain 6-10 Alprazolam 0.5 mg 02/05/25 16:40 02/09/25 22:16 Alprazolam 0.25 Mg Tablet PO 02/10/25 16:39 0.5 mg BID PRN Administration ANXIETY Amlodipine Besylate 5 mg 02/06/25 09:00 02/09/25 08:08 Amlodipine Besylate 5 Mg Tablet PO 03/08/25 08:59 5 mg QDAY EMMETT Administration Apixaban 5 mg 02/05/25 21:00 02/09/25 21:26 Apixaban 2.5 Mg Tablet PO 03/07/25 20:59 5 mg BID EMMETT Administration Dextrose 25 ml 02/05/25 17:40 Dextrose 50%-Water Inj 50 Ml Syringe IV 03/07/25 17:39 Q15MIN PRN BG 50-70 responsive npo pt Dextrose 50 ml 02/05/25 17:40 Dextrose 50%-Water Inj 50 Ml Syringe IV 03/07/25 17:39 Q15MIN PRN BG <50 OR BG <70 & pt unresponsive Duloxetine HCl 60 mg 02/06/25 09:00 02/09/25 08:08 Duloxetine Hcl 30 Mg Capsule PO 03/08/25 08:59 60 mg QDAY EMMETT Administration Ferrous Sulfate 325 mg 02/09/25 08:30 02/09/25 08:55 Ferrous Sulf 325 Mg Tablet PO 03/11/25 08:29 Not Given QOD EMMETT Glucagon 1 mg 02/05/25 17:40 Glucagon Inj 1 Mg Vial IM Q15MIN PRN BG <70, and no IV access Metronidazole 500 mg in 100 mls @ 200 mls/hr 02/05/25 22:00 02/10/25 05:55 Flagyl 500 Mg Iv IV 02/12/25 21:59 200 mls/hr Q8HR EMMETT Administration Ciprofloxacin/Dextrose 400 mg in 200 mls @ 200 mls/hr 02/05/25 21:00 02/09/25 21:27 Cipro Ivpb IV 02/12/25 20:59 200 mls/hr Q12HR EMMETT Administration Sodium Chloride 1,000 mls @ 125 mls/hr 02/08/25 08:45 02/09/25 21:27 Ns IV 03/10/25 08:44 125 mls/hr .Q8H EMMETT Administration Insulin Human Lispro 0 unit 02/06/25 07:30 02/09/25 16:46 Insulin Lispro (Admelog) 1 Unit/0.01 Ml Unit SC 03/08/25 07:29 Not Given AC EMMETT Protocol Labetalol HCl 10 mg 02/05/25 17:45 Labetalol Inj 5 Mg/Ml Vial 20 Ml IVP 03/07/25 17:44 Q4H PRN SBP > 170 or DBP > 100 Levothyroxine Sodium 50 mcg 02/06/25 06:00 02/10/25 05:54 Levothyroxine Sodium 25 Mcg Tablet PO 03/08/25 05:59 50 mcg ACBR EMMETT Administration Lisinopril 20 mg 02/05/25 17:45 02/07/25 07:59 Lisinopril 20 Mg Tablet PO 03/07/25 17:44 20 mg QDAY EMMETT Administration Metoclopramide HCl 5 mg 02/07/25 08:01 02/09/25 15:23 Metoclopramide Inj 5 Mg/Ml Vial 2 Ml IVP 03/09/25 08:00 5 mg Q6H PRN Administration NAUSEA OR VOMITING Protocol Pantoprazole Sodium 40 mg 02/06/25 21:00 02/09/25 21:27 Pantoprazole 40 Mg Tablet PO 03/08/25 20:59 40 mg BID EMMETT Administration Polyethylene Glycol 17 gm 02/07/25 18:45 02/09/25 08:27 Polyethylene Glycol 17 Gm Packet PO 03/09/25 18:44 Not Given QDAY EMMETT Simethicone 80 mg 02/07/25 09:53 02/09/25 15:38 Simethicone 80 Mg Chew PO 03/09/25 09:52 80 mg QID PRN Administration GAS Sucralfate 1 gm 02/06/25 07:15 02/07/25 14:24 Sucralfate Susp 1 Gm/10 Ml Udc PO 03/08/25 07:14 1 gm TID EMMETT Administration Plan Summary: Ms. Temple is a 78-year-old female with history of atrial fibrillation, hypertension, diabetes, duodenal ulcer, chronic pain, multiple surgeries for chronic back pain, diverticulosis, IBS and sleep apnea who presented to [facility] with a chief complaint of abdominal pain. Patient admitted for colitis. #GOOD Ddx: ATN 2/2 ischemia -She had several episodes of hypotension and worsening anemia of unknown cause during her hospital stay, likely resulting in ATN. -Nephrology consult: Patient has BUN 27, Cr 3.4, and eGFR 13, which signifies significant renal function decrease as compared to her admit lab values of BUN, Cr, and eGFR of 3, 1.0, and 58 respectively. Given the patient's diarrhea, the patient was most likely dehydrated, but had elevated BP due to her pain. Once her pain was controlled, it is likely that her BP decreased, which in addition to her dehydrated status prior to admission, resulted in decreased blood flow to the kidneys. The decreased blood flow likely caused ATN, which ultimately showed up in a delayed manner on her labs. If this is the case, then her decreased renal function will plateau and slowly recover with adequate hydration. -Gradual improvement in kidney function markers: -Labs Cr 3.1, 3.4, 2.8 eGFR 13, 15, 17 (02/10) Plan: ? Renally dose meds, avoid overdiuresis and NEPHROTOXINS ? Daily CMP - Hold lisinopril 20mg daily - IV NS 125ml/h - Nephrology recommends: -- Ordered urine Na, urine Cr, and urine protein. -- Avoid nephrotoxic drugs. -- Recommend continuing IV hydration. -- Will continue to monitor renal function. -- Nephrology will continue to follow. # Diverticulitis of sigmoid colon # Hx of Diverticulosis # Diarrhea # IBS by History # Hx of Duodenal ulcer Pain likely related to divirticulitis vs pud. Patient with history of diverticulosis and IBS On admission patient presented with complaint of abdominal pain with associated symptoms of chills and non-bloody diarrhea CT abdomen pelvis indicated mild sigmoid diverticulitis with no abscess Blood ctx did not show growth of bacteria. -FOBT negative outpatient GI Dr Osuna Plan: -Continue IV ciprofloxacin and Flagyl (02/05/25 - ) -Resume Simethicone for bloating -Resume MiraLAX -Recommend high fiber diet, biofiber in AM per outpatient GI recs -Continue LR 70 cc/h -Follow CBC CMP in a.m. -Follow up blood culture -Zofran IV PRN for nausea/vomiting -Protonix 40 mg IV BID #Normocytic Anemia -Hgb 9-10 since August 2024, MCV 78-83 -No reported blood in stool or dark stool. -Pt has high risk for GI bleed given diverticular disease as stated above. -FOBT negative -iron sat 18 (L) and serum iron 64 (L) consistent with mild iron deficiency (02/07) -%retic count 1.9 (H) and absolute retic count 62.9 (02/07) -vitB12 805 and folate 24 in-range both (02/07) Hgb 8.3, MCV 82 (02/10) Plan: -Ferrous sulfate 325mg QOD -Eliquis 5mg resumed in the context of negative FOBT -Repeat CBC in AM -Transfuse if Hgb <8.0 # Hypertension On admission patient with BP 179/88; SBP 140-160/60-80 while in hospital On home med benazepril 20 mg Qday Plan: ?Will allow for slightly higher blood pressure to avoid recurrent hypotension -Resume amlodipine 5 mg Qday -Hold lisinopril 20mg daily -Labatelol for SBP > 170 #Diabetes Mellitus Last A1c 6.8% on Jun 2024 glc 151 (7/4 AM) Plan: -SSI+accuchecks -Hypoglycemia protocol # Atrial-fibrillation history, likely paroxysmal -Pt with a hx of afib which was markedly improved after ablation. -EKG from 02/06 demonstrated sinus rhythm, indicating sudden onset. -[id number] score 5, has-bled score 8.9% (high risk for bleed, recommended alternative therapy). Plan: ? Will revisit risk/factor of anticoagulation prior to resuming ELIQUIS # Hypothyroidism Plan: -Restart home med levothyroxine 50 mcg # Hx of depression # Hx of anxiety Plan: -Restart PRN alprazolam 0.5 mg BID -Restart home med duloxetine 60 mg Qday Health Maintenance Dispo: Patient admitted to [facility] for acute diverticulitis requiring IV antibiotics Diet: Clear liquid diet DVT/PPx: SCDs GI ppx: Protonix 40 IV twice daily Lines: PIV Code Status: Full code Case was discussed with attending physician, Dr. Winn, and senior resident Dr Mock. Marine Ford, DO PGY I Attending Provider Attestation/Addendum I attest that I was physically present for the evaluation, physical examination, lab and imaging review of the patient with the residents. I discussed the case with the residents and agree with the findings and plans of care as documented above. Kaitlin Winn MD
[2025-02-10 08:23] LABS: Basophils # (Auto) 0.0 Thou/mm3 (0.0-0.2); Basophils % (Auto) 0 % (0-2.5); Eosinophils # (Auto) 0.1 Thou/mm3 (0.0-0.5); Eosinophils % (Auto) 1 % (0-10); Hematocrit 26.1 % (36.0-46.0); Immature Granulocytes Auto 0.04 Thou/mm3 (0.00-0.00); Lymphocytes # (Auto) 1.3 Thou/mm3 (1.0-4.8); Lymphocytes % (Auto) 15 % (10-50); Mean Corpuscular HGB Conc 31.8 g/dl (31.0-37.0); Mean Corpuscular Hemoglobin 25.9 pg (25.0-35.0); Mean Corpuscular Volume 82 fL (80-100); Monocytes # (Auto) 1.0 Thou/mm3 (0.0-0.8); Monocytes % (Auto) 11 % (0-12); Neutrophils # (Auto) 6.3 Thou/mm3 (1.8-7.7); Neutrophils % (Auto) 72 % (37-80); Nucleated Red Blood Cell # 0.00 Thou/mm3 (0.00-0.00); Nucleated Red Blood Cell % 0 /100 WBC (0); Platelet Count 367 Thou/mm3 (140-440); RDW Standard Deviation 47.4 fL (36.4-46.3); Red Blood Count 3.20 Miln/mm3 (4.00-5.20); White Blood Count 8.8 Thou/mm3 (3.6-11.0)
[2025-02-10 08:46] LABS: Hemoglobin 8.3 g/dL (12.0-16.0)
--- NOTE | 2025-02-10 08:49 | PD.RESPRO ---
Documentation for date of: 02/10/25 Subjective Subjective Interval history: Overnight events: No acute events overnight. Patient was seen and examined at bedside. AM vitals and labs reviewed. Renal function slowly improving. BUN 30, Cr 2.8, eGFR 17. The patient reports drinking water throughout the day with good urine production. Ins/Outs 5500/3110. No complaints at this time other than wanting to go home. Will monitor for one more day, if patient's renal function continues to be stable or improves tomorrow, then patient will be adequate to be discharged from Nephrology's service. Review of systems otherwise negative except for what is mentioned above. Exam Vital Signs Temp Pulse Resp BP Pulse Ox O2 Del Method O2 Flow Rate 97.3 F 90 17 142/76 H 95 Room Air 2 02/10/25 04:00 02/10/25 04:00 02/10/25 04:00 02/10/25 04:00 02/10/25 04:00 02/10/25 04:00 02/06/25 12:00 Narrative Exam Physical Exam: General: Alert, no acute distress. Skin: Warm, dry, intact, no obvious rash. Head: Normocephalic, atraumatic. Eye: Normal conjunctiva, PERRL. Throat: Oral mucosa moist. No obvious lesions in oropharynx. Cardiovascular: Regular rate and rhythm, no murmur, +S1/S2. Respiratory: Lungs are clear to auscultation, respirations unlabored, no crackles, no wheezing. Gastrointestinal: Soft, nontender, non-distended. No guarding or rebound tenderness. Extremities: No edema, no cyanosis, no clubbing. 2+ radial pulse bilaterally, 2+ pedal pulse bilaterally. Neuro: No focal deficits observed. Conversant, moving all extremities. No overt cerebellar signs/incoordination. Psychiatric: Cooperative, appropriate affect. Objective Labs 02/11/25 02:13 02/11/25 02:13 Labs: Laboratory Results - last 24 hr 02/10/25 07:15 WBC 8.8 RBC 3.20 L Hgb 8.3 L Hct 26.1 L MCV 82 MCH 25.9 MCHC 31.8 RDW Std Deviation 47.4 H Plt Count 367 Neut % (Auto) 72 Lymph % (Auto) 15 [place] % (Auto) 11 Eos % (Auto) 1 Baso % (Auto) 0 Neut # (Auto) 6.3 Lymph # (Auto) 1.3 [place] # (Auto) 1.0 H Eos # (Auto) 0.1 Baso # (Auto) 0.0 Immature Gran # (Auto) 0.04 H Absolute Nucleated RBC 0.00 Immature Gran % 1 H Nucleated RBC % 0 Quality Measures Quality Measures none Advance care planning discussed with:: patient Assessment & Plan Assessment Current Active Medications: Generic Name Dose Route Start Last Admin Trade Name Freq PRN Reason Stop Dose Admin Acetaminophen 650 mg 02/05/25 15:28 Acetaminophen 325 Mg Tablet PO 03/07/25 15:27 Q6H PRN Fever >101.5 Acetaminophen 650 mg 02/06/25 09:51 02/09/25 22:16 Acetaminophen 325 Mg Tablet PO 03/08/25 09:50 650 mg Q6HR PRN Administration Pain 1-4 Hydrocodone Bitart/Acetaminophen 1 tab 02/06/25 09:51 02/06/25 23:36 Hydrocodone/Apap 10/325 Tab PO 02/11/25 09:50 1 tab Q6HR PRN Administration Pain 6-10 Alprazolam 0.5 mg 02/05/25 16:40 02/09/25 22:16 Alprazolam 0.25 Mg Tablet PO 02/10/25 16:39 0.5 mg BID PRN Administration ANXIETY Amlodipine Besylate 5 mg 02/06/25 09:00 02/09/25 08:08 Amlodipine Besylate 5 Mg Tablet PO 03/08/25 08:59 5 mg QDAY EMMETT Administration Apixaban 5 mg 02/05/25 21:00 02/09/25 21:26 Apixaban 2.5 Mg Tablet PO 03/07/25 20:59 5 mg BID EMMETT Administration Dextrose 25 ml 02/05/25 17:40 Dextrose 50%-Water Inj 50 Ml Syringe IV 03/07/25 17:39 Q15MIN PRN BG 50-70 responsive npo pt Dextrose 50 ml 02/05/25 17:40 Dextrose 50%-Water Inj 50 Ml Syringe IV 03/07/25 17:39 Q15MIN PRN BG <50 OR BG <70 & pt unresponsive Duloxetine HCl 60 mg 02/06/25 09:00 02/09/25 08:08 Duloxetine Hcl 30 Mg Capsule PO 03/08/25 08:59 60 mg QDAY EMMETT Administration Ferrous Sulfate 325 mg 02/09/25 08:30 02/09/25 08:55 Ferrous Sulf 325 Mg Tablet PO 03/11/25 08:29 Not Given QOD EMMETT Glucagon 1 mg 02/05/25 17:40 Glucagon Inj 1 Mg Vial IM Q15MIN PRN BG <70, and no IV access Metronidazole 500 mg in 100 mls @ 200 mls/hr 02/05/25 22:00 02/10/25 05:55 Flagyl 500 Mg Iv IV 02/12/25 21:59 200 mls/hr Q8HR EMMETT Administration Ciprofloxacin/Dextrose 400 mg in 200 mls @ 200 mls/hr 02/05/25 21:00 02/09/25 21:27 Cipro Ivpb IV 02/12/25 20:59 200 mls/hr Q12HR EMMETT Administration Sodium Chloride 1,000 mls @ 125 mls/hr 02/08/25 08:45 02/09/25 21:27 Ns IV 03/10/25 08:44 125 mls/hr .Q8H EMMETT Administration Insulin Human Lispro 0 unit 02/06/25 07:30 02/10/25 07:17 Insulin Lispro (Admelog) 1 Unit/0.01 Ml Unit SC 03/08/25 07:29 Not Given AC EMMETT Protocol Labetalol HCl 10 mg 02/05/25 17:45 Labetalol Inj 5 Mg/Ml Vial 20 Ml IVP 03/07/25 17:44 Q4H PRN SBP > 170 or DBP > 100 Levothyroxine Sodium 50 mcg 02/06/25 06:00 02/10/25 05:54 Levothyroxine Sodium 25 Mcg Tablet PO 03/08/25 05:59 50 mcg ACBR EMMETT Administration Lisinopril 20 mg 02/05/25 17:45 02/07/25 07:59 Lisinopril 20 Mg Tablet PO 03/07/25 17:44 20 mg QDAY EMMETT Administration Metoclopramide HCl 5 mg 02/07/25 08:01 02/09/25 15:23 Metoclopramide Inj 5 Mg/Ml Vial 2 Ml IVP 03/09/25 08:00 5 mg Q6H PRN Administration NAUSEA OR VOMITING Protocol Pantoprazole Sodium 40 mg 02/06/25 21:00 02/09/25 21:27 Pantoprazole 40 Mg Tablet PO 03/08/25 20:59 40 mg BID EMMETT Administration Polyethylene Glycol 17 gm 02/07/25 18:45 02/09/25 08:27 Polyethylene Glycol 17 Gm Packet PO 03/09/25 18:44 Not Given QDAY EMMETT Simethicone 80 mg 02/07/25 09:53 02/09/25 15:38 Simethicone 80 Mg Chew PO 03/09/25 09:52 80 mg QID PRN Administration GAS Sucralfate 1 gm 02/06/25 07:15 02/07/25 14:24 Sucralfate Susp 1 Gm/10 Ml Udc PO 03/08/25 07:14 1 gm TID EMMETT Administration Plan Mrs. Temple is a pleasant 79 year old lady with a relevant medical history of A-fib on Eliquis, HTN, duodenal ulcer, diverticulosis, T2DM, hypothyroidism, and IBS, who presented to [facility] on 02/05/25 with abdominal pain and diarrhea. Nephrology was consulted due to concerns of new onset GOOD. #New onset GOOD due to ATN 2/2 ischemia Patient has BUN 27, Cr 3.4, and eGFR 13, which signifies significant renal function decrease as compared to her admit lab values of BUN, Cr, and eGFR of 3, 1.0, and 58 respectively. Given the patient's diarrhea, the patient was most likely dehydrated, but had elevated BP due to her pain. Once her pain was controlled, it is likely that her BP decreased, which in addition to her dehydrated status prior to admission, resulted in decreased blood flow to the kidneys. The decreased blood flow likely caused ATN, which ultimately showed up in a delayed manner on her labs. If this is the case, then her decreased renal function will plateau and slowly recover with adequate hydration. - Avoid nephrotoxic drugs. - Recommend continuing IV hydration. - Will continue to monitor renal function. - If labs remain stable or improve tomorrow AM, can be discharged from Nephrology's service. - Nephrology will continue to follow. Patient was discussed with the Nephrology attending, Dr. Chambers. Thank you for allowing us to participate in the care of this patient. Attending Provider Attestation/Addendum Pt is seen and examined. labs and investigations are reviewed. Agree with assessment and plan and findings by resident. Jesus Chambers MD
[2025-02-10 08:52] LABS: Alanine Aminotransferase 11 U/L (10-49); Albumin, Serum 3.4 gm/dL (3.4-4.8); Albumin/Globulin Ratio 1.5 (1.2-2.2); Alkaline Phosphatase 61 U/L (46-116); Anion Gap 12 (7-16); Aspartate Amino Transferase 13 U/L (0-34); BUN/Creatinine Ratio 11 Ratio (12-20); Bilirubin,Total 0.2 mg/dL (0.3-1.2); Blood Urea Nitrogen 30 mg/dL (9-23); Calcium 8.2 mg/dL (8.3-10.6); Calcium (Corrected) 8.7 mg/dL (8.5-10.1); Carbon Dioxide 21.1 mMol/L (20.0-31.0); Chloride 112 mMol/L (98-107); Creatinine (Component) 2.8 mg/dL (0.6-1.3); Estimated Creatinine Clearance 15.2 mL/min (>60); Globulin 2.2 gm/dL (2.3-3.5); Glucose 151 mg/dL (74-106); Magnesium 2.6 mg/dL (1.6-2.6); Osmolality,Calculated 297 (275-295); Phosphorous 5.0 mg/dL (2.4-5.1); Potassium 4.0 mMol/L (3.4-5.1); Sodium 145 mMol/L (136-145); Total Protein 5.6 gm/dL (5.7-8.2); eGFR 17 See Note
[2025-02-10] MEDS: SODIUM CHLORIDE 0.9% 1000 ML 1,000 ML 125 ML IV ×2 (09:26→19:57)
[2025-02-10] MEDS: SIMETHICONE 80 MG CHEW PO ×2 (09:30→17:58)
[2025-02-10] MEDS: DULoxetine HCL 30 MG CAPSULE 60 MG PO (09:30)
[2025-02-10] MEDS: CIPROFLOXACIN/D5w 400 MG IVPB 400 MG/200 ML BAG 200 MG IV ×2 (09:31→20:15)
[2025-02-10] MEDS: APIXABAN 2.5 MG TABLET 5 MG PO ×2 (09:31→20:16)
[2025-02-10] MEDS: PANTOPRAZOLE 40 MG TABLET PO ×2 (09:31→20:16)
[2025-02-10] MEDS: POLYETHYLENE GLYCOL 17 GM PACKET PO (09:31)
--- NOTE | 2025-02-10 09:52 | ECHO_ITS ---
Transthoracic Echo Report Ht (in): 60 Wt (lb): 177 Exam Location: Echo Lab Status: Inpatient [employer]: Kina Liu Indications: Procedure Performed: BP: 99 / 51 HR: 71 Technical Quality: Technically difficult study MEASUREMENTS (Male / Female) Normal Values 2D ECHO LV Diastolic Diameter PLAX 4.1 cm 4.2 - 5.9 / 3.9 - 5.3 cm LV Systolic Diameter PLAX 2.9 cm IVS Diastolic Thickness 0.8 cm 0.6 - 1.0 / 0.6 - 0.9 cm LVPW Diastolic Thickness 0.9 cm 0.6 - 1.0 / 0.6 - 0.9 cm LV Relative Wall Thickness 0.4 LVOT Diameter 1.5 cm LV Ejection Fraction MOD BP 56.3 % >= 55 % LV Cardiac Index MOD BP 1603.3 cm?/min?m? LV Ejection Fraction MOD 4C 61.5 % LV Cardiac Index MOD 4C 1867.4 cm?/min?m? LV Ejection Fraction 4C AL 63.4 % LV Cardiac Index 4C AL 2043.9 cm?/min?m? LV Ejection Fraction MOD 2C 49.8 % LV Cardiac Index MOD 2C 1237.4 cm?/min?m? LV Ejection Fraction 2C AL 50.8 % LV Cardiac Index 2C AL 1304.8 cm?/min?m? LA Volume Index 36.6 cm?/m? 16 - 28 cm?/m? M-MODE Aortic Root Diameter MM 2.1 cm LA Systolic Diameter MM 3.4 cm LA Ao Ratio MM 1.6 AV Cusp Separation MM 1.5 cm DOPPLER AV Peak Velocity 184.0 cm/s AV Peak Gradient 13.5 mmHg AV Mean Gradient 6.0 mmHg AV Velocity Time Integral 35.8 cm LVOT Peak Velocity 125.0 cm/s LVOT Peak Gradient 6.3 mmHg LVOT Velocity Time Integral 38.8 cm LVOT Cardiac Index 2586.7 cm?/min?m? AV Area Cont Eq vti 1.9 cm? AV Area Cont Eq pk 1.2 cm? MV Area PHT 4.3 cm? MR Peak Velocity 462.0 cm/s MR Peak Gradient 85.4 mmHg Mitral E Point Velocity 87.3 cm/s Mitral A Point Velocity 65.0 cm/s Mitral E to A Ratio 1.3 LV E' Lateral Velocity 7.1 cm/s Mitral E to LV E' Lateral Ratio 12.3 LV E' Septal Velocity 7.9 cm/s Mitral E to LV E' Septal Ratio 11.0 TR Peak Velocity 274.0 cm/s TR Peak Gradient 30.0 mmHg PV Peak Velocity 115.0 cm/s PV Peak Gradient 5.3 mmHg FINDINGS Left Ventricle Normal left ventricular size, wall thickness, systolic function with no obvious regional wall motion abnormalities. Normal left ventricular diastolic filling pattern for age. The ejection fraction is visually estimated at 55-60 %. Right Ventricle The right ventricle is normal in size and systolic function. The estimated right ventricular systolic pressure, 35 mmHg. RAP 5. Left Atrium The left atrium is normal by two-dimensional, color flow and Doppler imaging with no structural abnormalities, no thrombus formation present. Right Atrium The right atrium is normal by two-dimensional imaging, color flow and Doppler imaging with no structural abnormalities, no thrombus formation present. Atrial Septum The interatrial septum appears normal with no evidence of a shunt. Aorta The aorta is normal by two-dimensional, color flow and Doppler interrogation. Mitral Valve The mitral valve is normal by two-dimensional, color flow and Doppler interrogation. [id number] mitral regurgitation. Aortic Valve The aortic valve is trileaflet and normal by two-dimensional, color flow and Doppler interrogation. There is no significant aortic valve regurgitation. Tricuspid Valve The tricuspid valve is normal by two-dimensional, color flow and Doppler interrogation. There is mild tricuspid valve regurgitation. Pulmonic Valve The pulmonic valve is not well visualized. There is no significant pulmonic valve regurgitation. Vessels The pulmonary artery appears normal. The inferior vena cava pulmonary and hepatic veins appear normal. Pericardium The pericardium is normal by two-dimensional imaging. There is no significant pericardial effusion. CONCLUSIONS Indication: A-Fib Normal LV size and function. Normal LV diastolic filling pattern for age. Estimated EF at 55-60 %. The RV is normal in size and systolic function. The estimated RVSP, 35 mmHg. RAP 5. Mitral thickening mild mitral regurgitation. Marina Means (Electronically Signed) Final Date: 10 February 2025 16:00
[2025-02-10] MEDS: INSULIN LISPRO (AdmeLOG) 1 UNIT/0.01 ML UNIT SC (12:03)
[2025-02-10] MEDS: ACETAMINOPHEN 325 MG TABLET 650 MG PO (18:01)
[2025-02-11] VITALS (11 sets, daily range): BP systolic 137–173; BP diastolic 67–86; PULSE 70–98; RESP 18–19; TEMP 36.1–36.5; O2SAT 95–100
[2025-02-11] MEDS: SIMETHICONE 80 MG CHEW PO ×2 (01:52→13:37)
--- NOTE | 2025-02-11 01:55 | PC.NURSE ---
Pt HR went up to 130's, pt complaints of chest discomfort and SOB,pt BP 172/89 at this time, MD Paris made aware, MD came and check on the pts, MD ordered lab test and CXR, EKG.
--- NOTE | 2025-02-11 01:58 | XR_ITS ---
Examination: AP chest single view TECHNIQUE: AP portable upright chest single view. Date and time: February 11, 2025, 0232 hours Comparison November 21, 2024 INDICATIONS: Shortness of breath chest pain today. FINDINGS: Early heart failure. Mild enlargement cardiac contour. Prominent vascular congestion with early septal edema at the lung bases. Prominent osteopenia IMPRESSION: Early heart failure.
--- NOTE | 2025-02-11 01:58 | EKG_ITS ---
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
--- NOTE | 2025-02-11 02:14 | PC.NURSE ---
Pt was given Mylicon chew, per pts she feels like she's having acid reflux, pt BP down to 158/85, will wait for the lab test result.
[2025-02-11 02:48] LABS: Basophils # (Auto) 0.0 Thou/mm3 (0.0-0.2); Basophils % (Auto) 0 % (0-2.5); Eosinophils # (Auto) 0.1 Thou/mm3 (0.0-0.5); Eosinophils % (Auto) 1 % (0-10); Hematocrit 27.8 % (36.0-46.0); Hemoglobin 8.9 g/dL (12.0-16.0); Immature Granulocytes Auto 0.05 Thou/mm3 (0.00-0.00); Lymphocytes # (Auto) 1.2 Thou/mm3 (1.0-4.8); Lymphocytes % (Auto) 10 % (10-50); Mean Corpuscular HGB Conc 32.0 g/dl (31.0-37.0); Mean Corpuscular Hemoglobin 25.9 pg (25.0-35.0); Mean Corpuscular Volume 81 fL (80-100); Monocytes # (Auto) 1.0 Thou/mm3 (0.0-0.8); Monocytes % (Auto) 8 % (0-12); Neutrophils # (Auto) 9.9 Thou/mm3 (1.8-7.7); Neutrophils % (Auto) 81 % (37-80); Nucleated Red Blood Cell # 0.00 Thou/mm3 (0.00-0.00); Nucleated Red Blood Cell % 0 /100 WBC (0); Platelet Count 409 Thou/mm3 (140-440); RDW Standard Deviation 47.5 fL (36.4-46.3); Red Blood Count 3.43 Miln/mm3 (4.00-5.20); White Blood Count 12.2 Thou/mm3 (3.6-11.0)
[2025-02-11 03:20] LABS: Alanine Aminotransferase 9 U/L (10-49); Albumin, Serum 4.0 gm/dL (3.4-4.8); Albumin/Globulin Ratio 1.4 (1.2-2.2); Alkaline Phosphatase 68 U/L (46-116); Anion Gap 15 (7-16); Aspartate Amino Transferase 14 U/L (0-34); BUN/Creatinine Ratio 11 Ratio (12-20); Bilirubin,Total 0.3 mg/dL (0.3-1.2); Blood Urea Nitrogen 27 mg/dL (9-23); Calcium 8.3 mg/dL (8.3-10.6); Calcium (Corrected) 8.3 mg/dL (8.5-10.1); Carbon Dioxide 18.9 mMol/L (20.0-31.0); Chloride 109 mMol/L (98-107); Creatinine (Component) 2.4 mg/dL (0.6-1.3); Estimated Creatinine Clearance 17.7 mL/min (>60); Globulin 2.8 gm/dL (2.3-3.5); Glucose 147 mg/dL (74-106); Magnesium 1.8 mg/dL (1.6-2.6); Osmolality,Calculated 293 (275-295); Phosphorous 4.1 mg/dL (2.4-5.1); Potassium 3.5 mMol/L (3.4-5.1); Sodium 143 mMol/L (136-145); Total Protein 6.8 gm/dL (5.7-8.2); Troponin I < 0.020 ng/mL (0.0-0.045); eGFR 20 See Note
[2025-02-11] MEDS: LEVOTHYROXINE SODIUM 25 MCG TABLET 50 MCG PO (05:28)
[2025-02-11] MEDS: metroNIDAZOLE/NS 500 MG IVPB 500 MG/100 ML BAG 200 MG IV ×3 (05:28→22:11)
[2025-02-11] MEDS: SODIUM CHLORIDE 0.9% 1000 ML 1,000 ML 125 ML IV ×2 (05:28→16:37)
[2025-02-11] MEDS: DULoxetine HCL 30 MG CAPSULE 60 MG PO (08:45)
[2025-02-11] MEDS: POLYETHYLENE GLYCOL 17 GM PACKET PO (08:45)
[2025-02-11] MEDS: APIXABAN 2.5 MG TABLET 5 MG PO ×2 (08:45→20:18)
[2025-02-11] MEDS: FERROUS SULF 325 MG TABLET PO (08:45)
[2025-02-11] MEDS: PANTOPRAZOLE 40 MG TABLET PO ×2 (08:45→20:18)
[2025-02-11] MEDS: CIPROFLOXACIN/D5w 400 MG IVPB 400 MG/200 ML BAG 200 MG IV ×2 (08:46→20:17)
[2025-02-11] MEDS: ACETAMINOPHEN 325 MG TABLET 650 MG PO ×2 (10:01→19:40)
[2025-02-11] MEDS: Magnesium Sulfate 2 GM Ivpb 2 GM/50 ML BAG IV (10:01)
[2025-02-11] MEDS: POTASSIUM CHLORIDE 10% 20 MEQ/15 ML UDC GT (11:45)
[2025-02-11] MEDS: INSULIN LISPRO (AdmeLOG) 1 UNIT/0.01 ML UNIT SC (11:46)
[2025-02-11] MEDS: METOCLOPRAMIDE INJ 5 MG/ML VIAL 2 ML IVP (15:15)
--- NOTE | 2025-02-11 15:20 | PC.NURSE ---
PATIENT C/O ABDOMINAL PAIN, DR. NICHOLE MADE AWARE, ORDER RECEIVED, READ BACK AND CARRIED OUT.
[2025-02-11] MEDS: MG HYD/AL HYD/SIME (Maalox Reg) SUSP 30 ML UDC PO (16:37)
[2025-02-11] MEDS: LIDOCAINE VISCOUS 2% 15 ML UDC PO (16:38)
--- NOTE | 2025-02-11 20:49 | ESPR_ITS ---
Documentation for date of: 02/11/25 Subjective Subjective Interval history: Patient examined at bedside today. Patient reports that overnight she did have some chest pain and a workup was negative. She says she is having some abdominal pain in the right and left lower quadrants. She has no other complaints at this time. Exam Vital Signs Temp Pulse Resp BP Pulse Ox O2 Del Method O2 Flow Rate 97.2 F 82 19 166/84 H 100 Room Air 2 02/11/25 20:00 02/11/25 20:00 02/11/25 20:00 02/11/25 20:00 02/11/25 20:00 02/11/25 20:00 02/11/25 16:00 Narrative Exam Constitutional: well-developed, well-nourished, in mild distress, lying in bed HEENT: NCAT, EOMI, reactive round pupils b/l, patent nares b/l, moist mucous membranes Lung: CTAB, no wheezing, no rhonchi Heart: Regular S1S2, no murmurs, gallops, or rubs Abdomen: Soft, non-distended, RLQ and LLQ abdomen tenderness on palpation, bowel sounds present Extremities: No cyanosis, clubbing, or edema, LE pulses present b/l Neurologic: No focal sensory or motor deficits noted, AOx3, appropriate affect Skin: Warm, dry, no lesions or rashes noted Objective Labs 02/12/25 04:49 02/12/25 04:49 Labs: Laboratory Results - last 24 hr 02/11/25 02:13 WBC 12.2 H RBC 3.43 L Hgb 8.9 L Hct 27.8 L MCV 81 MCH 25.9 MCHC 32.0 RDW Std Deviation 47.5 H Plt Count 409 D Neut % (Auto) 81 H Lymph % (Auto) 10 [place] % (Auto) 8 Eos % (Auto) 1 Baso % (Auto) 0 Neut # (Auto) 9.9 H Lymph # (Auto) 1.2 [place] # (Auto) 1.0 H Eos # (Auto) 0.1 Baso # (Auto) 0.0 Immature Gran # (Auto) 0.05 H Absolute Nucleated RBC 0.00 Immature Gran % 0 Nucleated RBC % 0 Sodium 143 Potassium 3.5 D Chloride 109 H Carbon Dioxide 18.9 L Anion Gap 15 BUN 27 H Creatinine 2.4 H Estim Creat Clear Calc 17.7 L eGFR 20 L BUN/Creatinine Ratio 11 L Glucose 147 H Calculated Osmolality 293 Calcium 8.3 Corrected Calcium 8.3 L Phosphorus 4.1 Magnesium 1.8 Total Bilirubin 0.3 AST 14 ALT 9 L Alkaline Phosphatase 68 Troponin I < 0.020 Total Protein 6.8 Albumin 4.0 D Globulin 2.8 Albumin/Globulin Ratio 1.4 Quality Measures Quality Measures none Advance care planning discussed with:: patient Assessment & Plan Assessment Current Active Medications: Generic Name Dose Route Start Last Admin Trade Name Freq PRN Reason Stop Dose Admin Acetaminophen 650 mg 02/05/25 15:28 Acetaminophen 325 Mg Tablet PO 03/07/25 15:27 Q6H PRN Fever >101.5 Acetaminophen 650 mg 02/06/25 09:51 02/11/25 19:40 Acetaminophen 325 Mg Tablet PO 03/08/25 09:50 650 mg Q6HR PRN Administration Pain 1-4 Alprazolam 0.5 mg 02/10/25 16:48 02/11/25 11:45 Alprazolam 0.25 Mg Tablet PO 02/15/25 16:47 0.5 mg BID PRN Administration Anxiety Amlodipine Besylate 10 mg 02/11/25 09:00 02/11/25 08:46 Amlodipine Besylate 5 Mg Tablet PO 03/13/25 08:59 10 mg QDAY EMMETT Administration Apixaban 5 mg 02/05/25 21:00 02/11/25 20:18 Apixaban 2.5 Mg Tablet PO 03/07/25 20:59 5 mg BID EMMETT Administration Dextrose 25 ml 02/05/25 17:40 Dextrose 50%-Water Inj 50 Ml Syringe IV 03/07/25 17:39 Q15MIN PRN BG 50-70 responsive npo pt Dextrose 50 ml 02/05/25 17:40 Dextrose 50%-Water Inj 50 Ml Syringe IV 03/07/25 17:39 Q15MIN PRN BG <50 OR BG <70 & pt unresponsive Duloxetine HCl 60 mg 02/06/25 09:00 02/11/25 08:45 Duloxetine Hcl 30 Mg Capsule PO 03/08/25 08:59 60 mg QDAY EMMETT Administration Ferrous Sulfate 325 mg 02/09/25 08:30 02/11/25 08:45 Ferrous Sulf 325 Mg Tablet PO 03/11/25 08:29 325 mg QOD EMMETT Administration Glucagon 1 mg 02/05/25 17:40 Glucagon Inj 1 Mg Vial IM Q15MIN PRN BG <70, and no IV access Metronidazole 500 mg in 100 mls @ 200 mls/hr 02/05/25 22:00 02/11/25 13:38 Flagyl 500 Mg Iv IV 02/12/25 21:59 200 mls/hr Q8HR EMMETT Administration Ciprofloxacin/Dextrose 400 mg in 200 mls @ 200 mls/hr 02/05/25 21:00 02/11/25 20:17 Cipro Ivpb IV 02/12/25 20:59 200 mls/hr Q12HR EMMETT Administration Sodium Chloride 1,000 mls @ 125 mls/hr 02/08/25 08:45 02/11/25 17:05 Ns IV 03/10/25 08:44 Not Given .Q8H EMMETT Insulin Human Lispro 0 unit 02/06/25 07:30 02/11/25 17:05 Insulin Lispro (Admelog) 1 Unit/0.01 Ml Unit SC 03/08/25 07:29 Not Given AC EMMETT Protocol Labetalol HCl 10 mg 02/05/25 17:45 Labetalol Inj 5 Mg/Ml Vial 20 Ml IVP 03/07/25 17:44 Q4H PRN SBP > 170 or DBP > 100 Levothyroxine Sodium 50 mcg 02/06/25 06:00 02/11/25 05:28 Levothyroxine Sodium 25 Mcg Tablet PO 03/08/25 05:59 50 mcg ACBR EMMETT Administration Lisinopril 20 mg 02/05/25 17:45 02/07/25 07:59 Lisinopril 20 Mg Tablet PO 03/07/25 17:44 20 mg QDAY EMMETT Administration Metoclopramide HCl 5 mg 02/07/25 08:01 02/11/25 15:15 Metoclopramide Inj 5 Mg/Ml Vial 2 Ml IVP 03/09/25 08:00 5 mg Q6H PRN Administration NAUSEA OR VOMITING Protocol Pantoprazole Sodium 40 mg 02/06/25 21:00 02/11/25 20:18 Pantoprazole 40 Mg Tablet PO 03/08/25 20:59 40 mg BID EMMETT Administration Polyethylene Glycol 17 gm 02/07/25 18:45 02/11/25 08:45 Polyethylene Glycol 17 Gm Packet PO 03/09/25 18:44 17 gm QDAY EMMETT Administration Simethicone 80 mg 02/07/25 09:53 02/11/25 13:37 Simethicone 80 Mg Chew PO 03/09/25 09:52 80 mg QID PRN Administration GAS Sucralfate 1 gm 02/06/25 07:15 02/07/25 14:24 Sucralfate Susp 1 Gm/10 Ml Udc PO 03/08/25 07:14 1 gm TID EMMETT Administration Plan Summary: Ms. Temple is a 78-year-old female with history of atrial fibrillation, hypertension, diabetes, duodenal ulcer, chronic pain, multiple surgeries for chronic back pain, diverticulosis, IBS and sleep apnea who presented to [facility] with a chief complaint of abdominal pain. Patient admitted for colitis. #GOOD Ddx: ATN 2/2 ischemia -She had several episodes of hypotension and worsening anemia of unknown cause during her hospital stay, likely resulting in ATN. -Nephrology consult: Patient has BUN 27, Cr 3.4, and eGFR 13, which signifies significant renal function decrease as compared to her admit lab values of BUN, Cr, and eGFR of 3, 1.0, and 58 respectively. Given the patient's diarrhea, the patient was most likely dehydrated, but had elevated BP due to her pain. Once her pain was controlled, it is likely that her BP decreased, which in addition to her dehydrated status prior to admission, resulted in decreased blood flow to the kidneys. The decreased blood flow likely caused ATN, which ultimately showed up in a delayed manner on her labs. If this is the case, then her decreased renal function will plateau and slowly recover with adequate hydration. -Gradual improvement in kidney function markers: -Labs Cr 3.1, 3.4, 2.8 eGFR 13, 15, 17 (02/10) 02/11/2025: Creatinine continues to be improving currently at 2.4 Plan: ? Renally dose meds, avoid overdiuresis and NEPHROTOXINS ? Daily CMP - Hold lisinopril 20mg daily - IV NS 125ml/h - Nephrology recommends: -- Ordered urine Na, urine Cr, and urine protein. -- Avoid nephrotoxic drugs. -- Recommend continuing IV hydration. -- Will continue to monitor renal function. -- Nephrology will continue to follow. # Diverticulitis of sigmoid colon # Hx of Diverticulosis # Diarrhea # IBS by History # Hx of Duodenal ulcer Pain likely related to divirticulitis vs pud. Patient with history of diverticulosis and IBS On admission patient presented with complaint of abdominal pain with associated symptoms of chills and non-bloody diarrhea CT abdomen pelvis indicated mild sigmoid diverticulitis with no abscess Blood ctx did not show growth of bacteria. -FOBT negative outpatient GI Dr Osuna 02/11/2025: Patient continued to have some abdominal pain, we will continue to treat with antibiotics and pain control Plan: -Continue IV ciprofloxacin and Flagyl (02/05/25 - ) -Resume Simethicone for bloating -Resume MiraLAX -Recommend high fiber diet, biofiber in AM per outpatient GI recs -Continue LR 70 cc/h -Follow CBC CMP in a.m. -Follow up blood culture -Zofran IV PRN for nausea/vomiting -Protonix 40 mg IV BID -Added GI cocktail and gave Reglan 10 mg x1 #Normocytic Anemia -Hgb 9-10 since August 2024, MCV 78-83 -No reported blood in stool or dark stool. -Pt has high risk for GI bleed given diverticular disease as stated above. -FOBT negative -iron sat 18 (L) and serum iron 64 (L) consistent with mild iron deficiency (02/07) -%retic count 1.9 (H) and absolute retic count 62.9 (02/07) -vitB12 805 and folate 24 in-range both (02/07) Hgb 8.3, MCV 82 (/) Plan: -Ferrous sulfate 325mg QOD -Eliquis 5mg resumed in the context of negative FOBT -Repeat CBC in AM -Transfuse if Hgb <8.0 # Hypertension On admission patient with BP 179/88; SBP 140-160/60-80 while in hospital On home med benazepril 20 mg Qday Plan: ?Will allow for slightly higher blood pressure to avoid recurrent hypotension -Resume amlodipine 5 mg Qday -Hold lisinopril 20mg daily -Labatelol for SBP > 170 #Diabetes Mellitus Last A1c 6.8% on Jun 2024 glc 151 (7/ AM) Plan: -SSI+accuchecks -Hypoglycemia protocol # Atrial-fibrillation history, likely paroxysmal -Pt with a hx of afib which was markedly improved after ablation. -EKG from 02/06 demonstrated sinus rhythm, indicating sudden onset. -[id number] score 5, has-bled score 8.9% (high risk for bleed, recommended alternative therapy). Plan: ? Will revisit risk/factor of anticoagulation prior to resuming ELIQUIS # Hypothyroidism Plan: -Restart home med levothyroxine 50 mcg # Hx of depression # Hx of anxiety Plan: -Restart PRN alprazolam 0.5 mg BID -Restart home med duloxetine 60 mg Qday #Health Maintenance Disposition: [facility]Tele DVT prophylaxis: SCDs GI prophylaxis: Protonix IV BID Diet: PUD CODE STATUS: Full Patient seen and care discussed with my attending physician, Dr. Felicity Richmond, PGY-2 Attending Provider Attestation/Addendum Patient was seen and examined with internal medicine residents. The patient has ATN, diverticulitis, atrial fibrillation. Blood pressure is stable. The patient will receive potassium supplementation. Kidney functions improved. I discussed with and supervised the resident physician who took care of this patient. I agree with the assessment and plan as above.
[2025-02-12] VITALS (13 sets, daily range): BP systolic 131–184; BP diastolic 68–99; PULSE 71–102; RESP 16–100; TEMP 36.2–36.8; O2SAT 91–100
--- NOTE | 2025-02-12 00:30 | PC.NURSE ---
76% O2sat on room air- Applied O2 inh on at 3L/min/nc.
[2025-02-12] MEDS: SODIUM CHLORIDE 0.9% 1000 ML 1,000 ML 125 ML IV (01:08)
--- NOTE | 2025-02-12 05:12 | PC.NURSE ---
re Hx per pt takes cbd gummy about 12mg prn, 6mg at hs prn for arthritis pain.
[2025-02-12 05:45] LABS: Basophils # (Auto) 0.0 Thou/mm3 (0.0-0.2); Basophils % (Auto) 0 % (0-2.5); Eosinophils # (Auto) 0.1 Thou/mm3 (0.0-0.5); Eosinophils % (Auto) 1 % (0-10); Hematocrit 24.6 % (36.0-46.0); Hemoglobin 8.0 g/dL (12.0-16.0); Immature Granulocytes Auto 0.05 Thou/mm3 (0.00-0.00); Lymphocytes # (Auto) 1.7 Thou/mm3 (1.0-4.8); Lymphocytes % (Auto) 15 % (10-50); Mean Corpuscular HGB Conc 32.5 g/dl (31.0-37.0); Mean Corpuscular Hemoglobin 26.2 pg (25.0-35.0); Mean Corpuscular Volume 81 fL (80-100); Monocytes # (Auto) 1.2 Thou/mm3 (0.0-0.8); Monocytes % (Auto) 11 % (0-12); Neutrophils # (Auto) 8.0 Thou/mm3 (1.8-7.7); Neutrophils % (Auto) 72 % (37-80); Nucleated Red Blood Cell # 0.00 Thou/mm3 (0.00-0.00); Nucleated Red Blood Cell % 0 /100 WBC (0); Platelet Count 269 Thou/mm3 (140-440); RDW Standard Deviation 48.0 fL (36.4-46.3); Red Blood Count 3.05 Miln/mm3 (4.00-5.20); White Blood Count 11.1 Thou/mm3 (3.6-11.0)
[2025-02-12] MEDS: metroNIDAZOLE/NS 500 MG IVPB 500 MG/100 ML BAG 200 MG IV ×2 (06:06→13:43)
[2025-02-12] MEDS: LEVOTHYROXINE SODIUM 25 MCG TABLET 50 MCG PO (06:07)
[2025-02-12 06:35] LABS: Alanine Aminotransferase 7 U/L (10-49); Albumin, Serum 3.7 gm/dL (3.4-4.8); Albumin/Globulin Ratio 1.5 (1.2-2.2); Alkaline Phosphatase 59 U/L (46-116); Anion Gap 11 (7-16); Aspartate Amino Transferase 10 U/L (0-34); BUN/Creatinine Ratio 13 Ratio (12-20); Bilirubin,Total 0.3 mg/dL (0.3-1.2); Blood Urea Nitrogen 25 mg/dL (9-23); Calcium 8.2 mg/dL (8.3-10.6); Calcium (Corrected) 8.4 mg/dL (8.5-10.1); Carbon Dioxide 20.7 mMol/L (20.0-31.0); Chloride 112 mMol/L (98-107); Creatinine (Component) 1.9 mg/dL (0.6-1.3); Estimated Creatinine Clearance 22.4 mL/min (>60); Globulin 2.5 gm/dL (2.3-3.5); Glucose 132 mg/dL (74-106); Magnesium 1.7 mg/dL (1.6-2.6); Osmolality,Calculated 293 (275-295); Phosphorous 4.1 mg/dL (2.4-5.1); Potassium 4.2 mMol/L (3.4-5.1); Sodium 144 mMol/L (136-145); Total Protein 6.2 gm/dL (5.7-8.2); eGFR 27 See Note
--- NOTE | 2025-02-12 07:58 | ESPR_ITS ---
Documentation for date of: 02/12/25 Subjective Subjective Interval history: Patient seen and examined at bedside today. Patient states that after getting GI cocktail yesterday, she had frequent, voluminous bowel movements. As a result her upper abdominal discomfort, cramping, and bloating due to her peptic ulcer improved. Pt states that she is lactose intolerant, and those symptoms develop with consuming dairy, or sweat food. Exam Vital Signs Temp Pulse Resp BP Pulse Ox O2 Del Method O2 Flow Rate 98.2 F 79 16 152/87 H 91 L Room Air 2 02/12/25 04:00 02/12/25 04:50 02/12/25 04:00 02/12/25 04:00 02/12/25 04:00 02/12/25 04:00 02/11/25 16:00 Narrative Exam Constitutional: well-developed, well-nourished, in mild distress, lying in bed HEENT: NCAT, EOMI, reactive round pupils b/l, patent nares b/l, moist mucous membranes Lung: CTAB, no wheezing, no rhonchi Heart: Regular S1S2, no murmurs, gallops, or rubs Abdomen: Soft, non-distended, RLQ and LLQ abdomen tenderness on palpation, bowel sounds present Extremities: No cyanosis, clubbing, or edema, LE pulses present b/l Neurologic: No focal sensory or motor deficits noted, AOx3, appropriate affect Skin: Warm, dry, no lesions or rashes noted Objective Labs 02/12/25 04:49 02/12/25 04:49 Labs: Laboratory Results - last 24 hr 02/12/25 04:49 WBC 11.1 H RBC 3.05 L Hgb 8.0 L Hct 24.6 L MCV 81 MCH 26.2 MCHC 32.5 RDW Std Deviation 48.0 H Plt Count 269 D Neut % (Auto) 72 Lymph % (Auto) 15 [place] % (Auto) 11 Eos % (Auto) 1 Baso % (Auto) 0 Neut # (Auto) 8.0 H Lymph # (Auto) 1.7 [place] # (Auto) 1.2 H Eos # (Auto) 0.1 Baso # (Auto) 0.0 Immature Gran # (Auto) 0.05 H Absolute Nucleated RBC 0.00 Immature Gran % 1 H Nucleated RBC % 0 Sodium 144 Potassium 4.2 D Chloride 112 H Carbon Dioxide 20.7 Anion Gap 11 BUN 25 H Creatinine 1.9 H D Estim Creat Clear Calc 22.4 L eGFR 27 L BUN/Creatinine Ratio 13 Glucose 132 H Calculated Osmolality 293 Calcium 8.2 L Corrected Calcium 8.4 L Phosphorus 4.1 Magnesium 1.7 Total Bilirubin 0.3 AST 10 ALT 7 L Alkaline Phosphatase 59 Total Protein 6.2 Albumin 3.7 Globulin 2.5 Albumin/Globulin Ratio 1.5 Quality Measures Quality Measures none Advance care planning discussed with:: patient Assessment & Plan Assessment Current Active Medications: Generic Name Dose Route Start Last Admin Trade Name Freq PRN Reason Stop Dose Admin Acetaminophen 650 mg 02/05/25 15:28 Acetaminophen 325 Mg Tablet PO 03/07/25 15:27 Q6H PRN Fever >101.5 Acetaminophen 650 mg 02/06/25 09:51 02/11/25 19:40 Acetaminophen 325 Mg Tablet PO 03/08/25 09:50 650 mg Q6HR PRN Administration Pain 1-4 Hydrocodone Bitart/Acetaminophen 1 tab 02/11/25 23:54 02/12/25 00:08 Hydrocodone/Apap 10/325 Tab PO 02/16/25 23:53 1 tab Q6HR PRN Administration PAIN SCALE 4-10(Mod-Sev Alprazolam 0.5 mg 02/10/25 16:48 02/11/25 22:10 Alprazolam 0.25 Mg Tablet PO 02/15/25 16:47 0.5 mg BID PRN Administration Anxiety Amlodipine Besylate 10 mg 02/11/25 09:00 02/11/25 08:46 Amlodipine Besylate 5 Mg Tablet PO 03/13/25 08:59 10 mg QDAY EMMETT Administration Apixaban 5 mg 02/05/25 21:00 02/11/25 20:18 Apixaban 2.5 Mg Tablet PO 03/07/25 20:59 5 mg BID EMMETT Administration Dextrose 25 ml 02/05/25 17:40 Dextrose 50%-Water Inj 50 Ml Syringe IV 03/07/25 17:39 Q15MIN PRN BG 50-70 responsive npo pt Dextrose 50 ml 02/05/25 17:40 Dextrose 50%-Water Inj 50 Ml Syringe IV 03/07/25 17:39 Q15MIN PRN BG <50 OR BG <70 & pt unresponsive Duloxetine HCl 60 mg 02/06/25 09:00 02/11/25 08:45 Duloxetine Hcl 30 Mg Capsule PO 03/08/25 08:59 60 mg QDAY EMMETT Administration Ferrous Sulfate 325 mg 02/09/25 08:30 02/11/25 08:45 Ferrous Sulf 325 Mg Tablet PO 03/11/25 08:29 325 mg QOD EMMETT Administration Glucagon 1 mg 02/05/25 17:40 Glucagon Inj 1 Mg Vial IM Q15MIN PRN BG <70, and no IV access Metronidazole 500 mg in 100 mls @ 200 mls/hr 02/05/25 22:00 02/12/25 06:06 Flagyl 500 Mg Iv IV 02/12/25 21:59 200 mls/hr Q8HR EMMETT Administration Ciprofloxacin/Dextrose 400 mg in 200 mls @ 200 mls/hr 02/05/25 21:00 02/11/25 20:17 Cipro Ivpb IV 02/12/25 20:59 200 mls/hr Q12HR EMMETT Administration Sodium Chloride 1,000 mls @ 125 mls/hr 02/08/25 08:45 02/12/25 01:08 Ns IV 03/10/25 08:44 125 mls/hr .Q8H EMMETT Administration Insulin Human Lispro 0 unit 02/06/25 07:30 02/12/25 07:24 Insulin Lispro (Admelog) 1 Unit/0.01 Ml Unit SC 03/08/25 07:29 Not Given AC EMMETT Protocol Labetalol HCl 10 mg 02/05/25 17:45 Labetalol Inj 5 Mg/Ml Vial 20 Ml IVP 03/07/25 17:44 Q4H PRN SBP > 170 or DBP > 100 Levothyroxine Sodium 50 mcg 02/06/25 06:00 02/12/25 06:07 Levothyroxine Sodium 25 Mcg Tablet PO 03/08/25 05:59 50 mcg ACBR EMMETT Administration Lisinopril 20 mg 02/05/25 17:45 02/07/25 07:59 Lisinopril 20 Mg Tablet PO 03/07/25 17:44 20 mg QDAY EMMETT Administration Metoclopramide HCl 5 mg 02/07/25 08:01 02/11/25 15:15 Metoclopramide Inj 5 Mg/Ml Vial 2 Ml IVP 03/09/25 08:00 5 mg Q6H PRN Administration NAUSEA OR VOMITING Protocol Pantoprazole Sodium 40 mg 02/06/25 21:00 02/11/25 20:18 Pantoprazole 40 Mg Tablet PO 03/08/25 20:59 40 mg BID EMMETT Administration Polyethylene Glycol 17 gm 02/07/25 18:45 02/11/25 08:45 Polyethylene Glycol 17 Gm Packet PO 03/09/25 18:44 17 gm QDAY EMMETT Administration Simethicone 80 mg 02/07/25 09:53 02/11/25 13:37 Simethicone 80 Mg Chew PO 03/09/25 09:52 80 mg QID PRN Administration GAS Sucralfate 1 gm 02/06/25 07:15 02/07/25 14:24 Sucralfate Susp 1 Gm/10 Ml Udc PO 03/08/25 07:14 1 gm TID EMMETT Administration Plan Summary: Ms. Temple is a 78-year-old female with history of atrial fibrillation, hypertension, diabetes, duodenal ulcer, chronic pain, multiple surgeries for chronic back pain, diverticulosis, IBS and sleep apnea who presented to [facility] with a chief complaint of abdominal pain. Patient admitted for colitis. #GOOD Ddx: ATN 2/2 ischemia -She had several episodes of hypotension and worsening anemia of unknown cause during her hospital stay, likely resulting in ATN. -Nephrology consult: Patient has BUN 27, Cr 3.4, and eGFR 13, which signifies significant renal function decrease as compared to her admit lab values of BUN, Cr, and eGFR of 3, 1.0, and 58 respectively. Given the patient's diarrhea, the patient was most likely dehydrated, but had elevated BP due to her pain. Once her pain was controlled, it is likely that her BP decreased, which in addition to her dehydrated status prior to admission, resulted in decreased blood flow to the kidneys. The decreased blood flow likely caused ATN, which ultimately showed up in a delayed manner on her labs. If this is the case, then her decreased renal function will plateau and slowly recover with adequate hydration. -Gradual improvement in kidney function markers: -Labs Cr 3.1, 3.4, 2.8, 2.4, 1.9 eGFR 13, 15, 17, 20, 27 (02/12) Plan: ? Renally dose meds, avoid overdiuresis and NEPHROTOXINS ? Daily CMP - Hold lisinopril 20mg daily - IV NS 125ml/h - Nephrology recommends: -- Ordered urine Na, urine Cr, and urine protein. -- Avoid nephrotoxic drugs. -- Recommend continuing IV hydration. -- Will continue to monitor renal function. -- Nephrology will continue to follow. # Diverticulitis of sigmoid colon # Hx of Diverticulosis # Diarrhea # IBS by History # Hx of Duodenal ulcer Pain likely related to divirticulitis vs pud. Patient with history of diverticulosis and IBS On admission patient presented with complaint of abdominal pain with associated symptoms of chills and non-bloody diarrhea CT abdomen pelvis indicated mild sigmoid diverticulitis with no abscess Blood ctx did not show growth of bacteria. FOBT positive and Hgb 8.0 (02/12), necessitating colonoscopy to evaluate the area of diverticulitis for possible source of bleeding. Patient also has a hx of duodenal ulcer, and has been feeling abdominal pain, cramping, and bloating that she usually feels with associated with it. Patient has a hx of H pylori infection and needs to be retested for possibly of recurrent infection. Plan: -Continue IV ciprofloxacin and Flagyl (02/05/25 - ) -Resume Simethicone for bloating -Resume MiraLAX -Recommend high fiber diet, biofiber in AM per outpatient GI recs -Continue LR 70 cc/h -Follow CBC CMP in a.m. -Follow up blood culture -Zofran IV PRN for nausea/vomiting -Protonix 40 mg IV BID -Added GI cocktail and gave Reglan 10 mg x1 -GI Dr Osuna consulted for evaluation of the diverticulitis and positive FOBT test result. -Diet switched to clear liquids +plant-based protein in preparation for colonscopy. -Eliquis held in context of low elis Hgb and positve FOBT. -H pylori culture #Normocytic Anemia -Hgb 9-10 since August 2024, MCV 78-83 -No reported blood in stool or dark stool. -Pt has high risk for GI bleed given diverticular disease as stated above. -FOBT negative -iron sat 18 (L) and serum iron 64 (L) consistent with mild iron deficiency (02/07) -%retic count 1.9 (H) and absolute retic count 62.9 (02/07) -vitB12 805 and folate 24 in-range both (7/1) Hgb 8.3, MCV 82 (02/10) Plan: -Ferrous sulfate 325mg QOD -Eliquis 5mg resumed in the context of negative FOBT -Repeat CBC in AM -Transfuse if Hgb <8.0 # Hypertension On admission patient with BP 179/88; SBP 140-160/60-80 while in hospital On home med benazepril 20 mg Qday Plan: ?Will allow for slightly higher blood pressure to avoid recurrent hypotension -Resume amlodipine 5 mg Qday -Hold lisinopril 20mg daily -Labatelol for SBP > 170 #Diabetes Mellitus Last A1c 6.8% on Jun 2024 glc 151 (02/10 AM) Plan: -SSI+accuchecks -Hypoglycemia protocol # Atrial-fibrillation history, likely paroxysmal -Pt with a hx of afib which was markedly improved after ablation. -EKG from 02/06 demonstrated sinus rhythm, indicating sudden onset. -[id number] score 5, has-bled score 8.9% (high risk for bleed, recommended alternative therapy). Plan: ? Will revisit risk/factor of anticoagulation prior to resuming ELIQUIS # Hypothyroidism Plan: -Restart home med levothyroxine 50 mcg # Hx of depression # Hx of anxiety Plan: -Restart PRN alprazolam 0.5 mg BID -Restart home med duloxetine 60 mg Qday #Health Maintenance Disposition: MedTele DVT prophylaxis: SCDs GI prophylaxis: Protonix IV BID Diet: PUD CODE STATUS: Full Case was discussed with attending physician, Dr. Blevins, and senior resident Dr Mock. Marine Ford, DO PGY I Attending Provider Attestation/Addendum Patient here for diverticulitis, acute kidney injury, she has history of peptic ulcer disease. She has atrial fibrillation. Patient complains of abdominal discomfort and bloatedness. GI evaluation requested but this may not be the best time to do colonoscopy. Will defer to Dr. Osuna. Discussed with housestaff.
[2025-02-12] MEDS: CIPROFLOXACIN/D5w 400 MG IVPB 400 MG/200 ML BAG 200 MG IV (09:17)
[2025-02-12] MEDS: PANTOPRAZOLE 40 MG TABLET PO ×2 (09:18→20:24)
[2025-02-12] MEDS: DULoxetine HCL 30 MG CAPSULE 60 MG PO (09:19)
[2025-02-12] MEDS: APIXABAN 2.5 MG TABLET 5 MG PO (09:19)
--- NOTE | 2025-02-12 10:09 | ESPR_ITS ---
Documentation for date of: 02/12/25 Subjective Subjective Interval history: Pt is seen and examined no new complaints Exam Vital Signs Temp Pulse Resp BP Pulse Ox O2 Del Method O2 Flow Rate 97.1 F 98 21 H 165/68 H 94 L Room Air 2 02/12/25 07:56 02/12/25 09:18 02/12/25 07:56 02/12/25 09:18 02/12/25 07:56 02/12/25 07:56 02/11/25 16:00 Narrative Exam heart s1, s2 chest CTA maria teresa ext no edema neurology intact Objective Labs 02/14/25 07:57 02/14/25 07:57 Labs: Laboratory Results - last 24 hr 02/12/25 04:49 WBC 11.1 H RBC 3.05 L Hgb 8.0 L Hct 24.6 L MCV 81 MCH 26.2 MCHC 32.5 RDW Std Deviation 48.0 H Plt Count 269 D Neut % (Auto) 72 Lymph % (Auto) 15 [place] % (Auto) 11 Eos % (Auto) 1 Baso % (Auto) 0 Neut # (Auto) 8.0 H Lymph # (Auto) 1.7 [place] # (Auto) 1.2 H Eos # (Auto) 0.1 Baso # (Auto) 0.0 Immature Gran # (Auto) 0.05 H Absolute Nucleated RBC 0.00 Immature Gran % 1 H Nucleated RBC % 0 Sodium 144 Potassium 4.2 D Chloride 112 H Carbon Dioxide 20.7 Anion Gap 11 BUN 25 H Creatinine 1.9 H D Estim Creat Clear Calc 22.4 L eGFR 27 L BUN/Creatinine Ratio 13 Glucose 132 H Calculated Osmolality 293 Calcium 8.2 L Corrected Calcium 8.4 L Phosphorus 4.1 Magnesium 1.7 Total Bilirubin 0.3 AST 10 ALT 7 L Alkaline Phosphatase 59 Total Protein 6.2 Albumin 3.7 Globulin 2.5 Albumin/Globulin Ratio 1.5 Assessment & Plan Assessment and plan (1) Acute kidney injury: Status: Acute Assessment and plan: Creat is improving c/w supportive care f/u as out pt
[2025-02-12] MEDS: INSULIN LISPRO (AdmeLOG) 1 UNIT/0.01 ML UNIT SC (11:32)
[2025-02-12] MEDS: DEXTROSE 5%-NS 1,000 ML 100 ML IV (13:43)
--- NOTE | 2025-02-12 18:19 | PD.IMCONS ---
HPI Data of Consult Requesting Physician: Mika Blevins MD Primary Care Provider: Tyrone Langford MD Consult Narrative Reason for consult: Pain abdomen downtrending hemoglobin hematocrit low iron levels History of present illness: 79 years of female admitted on 02/05/2025 when she presented the emergency room with severe abdominal pain also had history of nausea vomiting in the past and also chronically constipated CT scan imaging of the abdomen pelvis without contrast showed sigmoid diverticulitis mild patient was subsequently admitted and has been on ciprofloxacin and metronidazole Her hemoglobin is trending downwards on 629 it was 10.0 and 32.1 with a better count of 3 and 64,000 and pro time INR 1.0 Iron saturation is 18% B12 805 Folate level is 24 She has also been found to have Hemoccult positive stool does carry a diagnosis of peptic ulcer disease as well and is lactose intolerance cc:: cc: Mika Blevins MD Review of Systems Review of Systems Systems Reviewed: All systems reviewed, normal except as documented Past Medical History Surgical History OTHER SURGICAL HX: Anxiety neurosis Depression On Eliquis I believe for paroxysmal atrial fibrillation Hypothyroidism Essential hypertension Meds Home Medications and Allergies Home Medications ?Medication ?Instructions ?Recorded ?Confirmed ?Type Bifidobacterium infantis 4 mg 4 mg PO DAILY 06/27/23 02/05/25 History capsule (Align (B.infantis)) acetaminophen 500 mg tablet 500 mg PO PRN PRN Pain 06/27/23 02/05/25 History cholecalciferol (vitamin D3) 25 25 mcg PO 1XD 06/27/23 02/05/25 History mcg (1,000 unit) tablet (Vitamin D3) levothyroxine 50 mcg tablet 50 mcg PO DAILY 06/27/23 02/05/25 History metformin 500 mg tablet 500 mg PO DAILY 06/27/23 02/05/25 History duloxetine 60 mg capsule,delayed 60 mg PO QDAY 08/23/23 02/06/25 History release alprazolam 0.5 mg tablet 0.5 mg PO BID PRN Anxiety 10/28/23 02/05/25 History benazepril 20 mg tablet 20 mg PO QDAY 10/28/23 02/05/25 History loperamide 2 mg capsule 2 mg PO QDAY 10/28/23 02/06/25 History pantoprazole 40 mg tablet,delayed 40 mg PO BID 10/28/23 02/05/25 History release apixaban 5 mg tablet (Eliquis) 5 mg PO QDAY 06/11/24 02/05/25 History alprazolam 0.5 mg tablet (Xanax) 0.5 mg PO TID PRN anxiety 02/05/25 02/05/25 History ascorbic acid (vitamin C) 500 mg 500 mg PO QDAY 02/05/25 02/05/25 History tablet (Vitamin C) duloxetine 60 mg capsule,delayed 60 mg PO QDAY 02/05/25 02/05/25 History release (Cymbalta) Allergies Allergy/AdvReac Type Severity Reaction Status Date / Time amoxicillin (From Augmentin) Allergy Severe Hives Verified 02/05/25 11:11 aspirin Allergy Severe Abdominal Verified 02/05/25 11:11 Pain ciprofloxacin (From Cipro) Allergy Severe Gastrointestinal Verified 02/05/25 11:11 Upset clavulanic acid (From Allergy Severe Hives Verified 02/05/25 11:11 Augmentin) codeine Allergy Severe Nausea Verified 02/05/25 11:11 fluconazole Allergy Severe Rash Verified 02/05/25 11:11 gabapentin Allergy Severe Abdominal Verified 02/05/25 11:11 Pain ketorolac (From Toradol) Allergy Severe Abdominal Verified 02/05/25 11:11 Pain nalbuphine Allergy Severe Abdominal Verified 02/05/25 11:11 Pain Sulfa (Sulfonamide Allergy Severe Hives Verified 02/05/25 11:11 Antibiotics) tizanidine Allergy Severe Rash Verified 02/05/25 11:11 tramadol Allergy Severe Rash Verified 02/05/25 11:11 Exam Vital Signs Temp Pulse Resp BP Pulse Ox O2 Del Method O2 Flow Rate 97.1 F 78 20 131/85 H 93 L Room Air 2 02/12/25 16:00 02/12/25 16:00 02/12/25 16:00 02/12/25 16:00 02/12/25 16:00 02/12/25 16:00 02/11/25 16:00 Constitutional Comments: Chronically ill-appearing Routine Respiratory Exam Comments: Normal to auscultation Routine Abdominal Exam Comments: Minimally tender positive bowel sounds Results Labs 02/12/25 04:49 02/12/25 04:49 Labs: Short CBC 02/12/25 Range/Units 04:49 WBC 11.1 H (3.6-11.0) Thou/mm3 Hgb 8.0 L (12.0-16.0) g/dL Hct 24.6 L (36.0-46.0) % Plt Count 269 D (140-440) Thou/mm3 BMP 02/12/25 04:49 Sodium 144 Potassium 4.2 D Chloride 112 H Carbon Dioxide 20.7 BUN 25 H Creatinine 1.9 H D Glucose 132 H Calcium 8.2 L Liver Function 02/12/25 Range/Units 04:49 Total Bilirubin 0.3 (0.3-1.2) mg/dL AST 10 (0-34) U/L ALT 7 L (10-49) U/L Alkaline Phosphatase 59 (46-116) U/L Albumin 3.7 (3.4-4.8) gm/dL Assessment and Plan Additional Assessment & Plan Additional Plan: # Acute diverticulitis sigmoid Agree with continue with metronidazole and ciprofloxacin # Downtrending hemoglobin hematocrit with low iron level and FOBT positive and history of peptic ulcer disease Will schedule patient for fiberoptic esophagogastroduodenoscopy with possible biopsy possible therapeutic intervention under intravenous moderate sedation Scheduled for tomorrow Clear liquid diet N.p.o. midnight tonight Colonoscopy is contraindicated at the moment because of the acute sigmoid diverticulitis Which should be done in about 12 weeks postdischarge from the hospital I can see her as an outpatient # Chronic constipation Increase water intake More plant-based diet Continue stool softeners Other medical problems include Paroxysmal atrial fibrillation on apixaban essential hypertension Hypothyroidism Anxiety neurosis Depression GOOD/ATN nephrology on board Thank you very much for the opportunity to participate in the care of this patient
--- NOTE | 2025-02-12 19:26 | PC.NURSE ---
seen and examined by Dr. Osuna- with orders made and carried out.
[2025-02-12 20:02] LABS: Basophils # (Auto) 0.0 Thou/mm3 (0.0-0.2); Basophils % (Auto) 0 % (0-2.5); Eosinophils # (Auto) 0.1 Thou/mm3 (0.0-0.5); Eosinophils % (Auto) 1 % (0-10); Hematocrit 25.9 % (36.0-46.0); Immature Granulocytes Auto 0.05 Thou/mm3 (0.00-0.00); Lymphocytes # (Auto) 1.8 Thou/mm3 (1.0-4.8); Lymphocytes % (Auto) 18 % (10-50); Mean Corpuscular HGB Conc 30.9 g/dl (31.0-37.0); Mean Corpuscular Hemoglobin 25.9 pg (25.0-35.0); Mean Corpuscular Volume 84 fL (80-100); Monocytes # (Auto) 1.1 Thou/mm3 (0.0-0.8); Monocytes % (Auto) 11 % (0-12); Neutrophils # (Auto) 7.1 Thou/mm3 (1.8-7.7); Neutrophils % (Auto) 69 % (37-80); Nucleated Red Blood Cell # 0.00 Thou/mm3 (0.00-0.00); Nucleated Red Blood Cell % 0 /100 WBC (0); Platelet Count 323 Thou/mm3 (140-440); RDW Standard Deviation 49.8 fL (36.4-46.3); Red Blood Count 3.09 Miln/mm3 (4.00-5.20); White Blood Count 10.3 Thou/mm3 (3.6-11.0)
[2025-02-12 20:05] LABS: Hemoglobin 8.0 g/dL (12.0-16.0)
[2025-02-12] MEDS: SIMETHICONE 80 MG CHEW PO (20:27)
[2025-02-12 20:28] LABS: Alanine Aminotransferase 7 U/L (10-49); Albumin, Serum 4.0 gm/dL (3.4-4.8); Albumin/Globulin Ratio 1.5 (1.2-2.2); Alkaline Phosphatase 61 U/L (46-116); Anion Gap 12 (7-16); Aspartate Amino Transferase 14 U/L (0-34); BUN/Creatinine Ratio 12 Ratio (12-20); Bilirubin,Total 0.2 mg/dL (0.3-1.2); Blood Urea Nitrogen 23 mg/dL (9-23); Calcium 8.9 mg/dL (8.3-10.6); Calcium (Corrected) 8.9 mg/dL (8.5-10.1); Carbon Dioxide 20.1 mMol/L (20.0-31.0); Chloride 111 mMol/L (98-107); Creatinine (Component) 1.9 mg/dL (0.6-1.3); Estimated Creatinine Clearance 22.4 mL/min (>60); Globulin 2.7 gm/dL (2.3-3.5); Glucose 171 mg/dL (74-106); Magnesium 1.5 mg/dL (1.6-2.6); Osmolality,Calculated 292 (275-295); Phosphorous 3.7 mg/dL (2.4-5.1); Potassium 3.9 mMol/L (3.4-5.1); Sodium 143 mMol/L (136-145); Total Protein 6.7 gm/dL (5.7-8.2); eGFR 27 See Note
--- NOTE | 2025-02-12 23:08 | PC.NURSE ---
84% O2 sat on room air, pt asleep- Applied O2 inh on at 2L/min/nc.
[2025-02-13] VITALS (19 sets, daily range): BP systolic 108–188; BP diastolic 57–95; PULSE 65–107; RESP 12–97; TEMP 36.6–37.6; O2SAT 91–99
[2025-02-13] MEDS: metroNIDAZOLE/NS 500 MG IVPB 500 MG/100 ML BAG 200 MG IV ×4 (00:34→22:18)
[2025-02-13] MEDS: DEXTROSE 5%-NS 1,000 ML 100 ML IV ×2 (02:01→13:26)
[2025-02-13 06:09] LABS: OBS Developer Expiration Date 2027-02-28; OBS Performed By ANDEK2; OBS QC OK? Yes
[2025-02-13 06:18] LABS: Occult Blood, Stool Positive (Negative)
[2025-02-13 08:14] LABS: Basophils # (Auto) 0.1 Thou/mm3 (0.0-0.2); Basophils % (Auto) 1 % (0-2.5); Eosinophils # (Auto) 0.2 Thou/mm3 (0.0-0.5); Eosinophils % (Auto) 2 % (0-10); Hematocrit 26.1 % (36.0-46.0); Immature Granulocytes Auto 0.04 Thou/mm3 (0.00-0.00); Lymphocytes # (Auto) 1.6 Thou/mm3 (1.0-4.8); Lymphocytes % (Auto) 16 % (10-50); Mean Corpuscular HGB Conc 31.0 g/dl (31.0-37.0); Mean Corpuscular Hemoglobin 25.9 pg (25.0-35.0); Mean Corpuscular Volume 83 fL (80-100); Monocytes # (Auto) 1.1 Thou/mm3 (0.0-0.8); Monocytes % (Auto) 11 % (0-12); Neutrophils # (Auto) 7.3 Thou/mm3 (1.8-7.7); Neutrophils % (Auto) 71 % (37-80); Nucleated Red Blood Cell # 0.00 Thou/mm3 (0.00-0.00); Nucleated Red Blood Cell % 0 /100 WBC (0); Platelet Count 333 Thou/mm3 (140-440); RDW Standard Deviation 50.0 fL (36.4-46.3); Red Blood Count 3.13 Miln/mm3 (4.00-5.20); White Blood Count 10.3 Thou/mm3 (3.6-11.0)
[2025-02-13 08:18] LABS: Hemoglobin 8.1 g/dL (12.0-16.0)
[2025-02-13 08:33] LABS: Alanine Aminotransferase < 7 U/L (10-49); Albumin, Serum 3.8 gm/dL (3.4-4.8); Albumin/Globulin Ratio 1.4 (1.2-2.2); Alkaline Phosphatase 60 U/L (46-116); Anion Gap 12 (7-16); Aspartate Amino Transferase 11 U/L (0-34); BUN/Creatinine Ratio 11 Ratio (12-20); Bilirubin,Total 0.2 mg/dL (0.3-1.2); Blood Urea Nitrogen 19 mg/dL (9-23); Calcium 9.1 mg/dL (8.3-10.6); Calcium (Corrected) 9.3 mg/dL (8.5-10.1); Carbon Dioxide 20.8 mMol/L (20.0-31.0); Chloride 112 mMol/L (98-107); Creatinine (Component) 1.8 mg/dL (0.6-1.3); Estimated Creatinine Clearance 23.6 mL/min (>60); Globulin 2.8 gm/dL (2.3-3.5); Glucose 160 mg/dL (74-106); Osmolality,Calculated 293 (275-295); Potassium 3.7 mMol/L (3.4-5.1); Sodium 145 mMol/L (136-145); Total Protein 6.6 gm/dL (5.7-8.2); eGFR 28 See Note
[2025-02-13 09:50] LABS: Magnesium 1.4 mg/dL (1.6-2.6); Phosphorous 4.3 mg/dL (2.4-5.1)
[2025-02-13] MEDS: INSULIN LISPRO (AdmeLOG) 1 UNIT/0.01 ML UNIT SC (12:11)
--- NOTE | 2025-02-13 13:14 | ESPR_ITS ---
<Statement entered by Esme Mock MD - 02/13/25 17:59> In summary, 78-year-old female with PMHx of A-fib, HTN, T2DM, duodenal ulcer, IBS, diverticulosis, among other problems, admitted for abdominal pain. She was found to have diverticulitis and has completed course of ANTIBIOTICS. He has also been on PROTONIX BID for peptic ulcer disease. Her symptoms have improved since, pain controlled with meds. Has been tolerating oral intake. Having regular bowel movements. Previously on CIPROFLOXACIN, will continue FLAGYL for now. She had ATN in settings of hypotension, continued on IVF's, overall renal function improving, creatinine 1.8, urine output more than adequate. Nephrology team following. However, she was found anemic on admission. Initial FOBT was negative and restarted iron supplements for low iron stores on labs. However hemoglobin continued to decline, prompting repeat FOBT which was positive. Currently she is n.p.o. for EGD with GI today. Overall hemoglobin is stable. Other problems include: A-fib, which is currently rate controlled, and we held ELIQUIS in settings of GI bleed and patient agrees. Case was discussed with attending physician. Esme Mock, PGY II This document was transcribed using voice recognition technology. Minor inaccuracies may be present. Documentation for date of: 02/13/25 Subjective Subjective Interval history: Patient seen and examined at bedside today. Abdominal pain is gradually getting better. She attributes her pain to flare up of her gastric ulcer, which happens when she eats dairy products, or sweats. Patient is lactose intolerant. Although the pt did not have BM in the mroning yet, she reports recent stooling was black. Patient admits to urinating well. Ciprofloxacin was held by the night team because of known interaction with duloxetine. Exam Vital Signs Temp Pulse Resp BP Pulse Ox O2 Del Method O2 Flow Rate 97.8 F 75 20 108/86 H 92 L Room Air 2 02/13/25 08:00 02/13/25 12:00 02/13/25 08:00 02/13/25 08:00 02/13/25 08:00 02/13/25 08:00 02/11/25 16:00 Narrative Exam Constitutional: well-developed, well-nourished, in mild distress, lying in bed HEENT: NCAT, EOMI, reactive round pupils b/l, patent nares b/l, moist mucous membranes Lung: CTAB, no wheezing, no rhonchi Heart: Regular S1S2, no murmurs, gallops, or rubs Abdomen: Soft, non-distended, RLQ and LLQ abdomen tenderness on palpation, bowel sounds present Extremities: No cyanosis, clubbing, or edema, LE pulses present b/l Neurologic: No focal sensory or motor deficits noted, AOx3, appropriate affect Skin: Warm, dry, no lesions or rashes noted Objective Labs 02/13/25 07:49 02/13/25 07:49 Labs: Laboratory Results - last 24 hr 02/12/25 02/12/25 02/13/25 10:37 19:14 07:49 WBC 10.3 10.3 RBC 3.09 L 3.13 L Hgb 8.0 L 8.1 L Hct 25.9 L 26.1 L MCV 84 83 MCH 25.9 25.9 MCHC 30.9 L 31.0 RDW Std Deviation 49.8 H 50.0 H Plt Count 323 D 333 Neut % (Auto) 69 71 Lymph % (Auto) 18 16 [place] % (Auto) 11 11 Eos % (Auto) 1 2 Baso % (Auto) 0 1 Neut # (Auto) 7.1 7.3 Lymph # (Auto) 1.8 1.6 [place] # (Auto) 1.1 H 1.1 H Eos # (Auto) 0.1 0.2 Baso # (Auto) 0.0 0.1 Immature Gran # (Auto) 0.05 H 0.04 H Absolute Nucleated RBC 0.00 0.00 Immature Gran % 1 H 0 Nucleated RBC % 0 0 Sodium 143 145 Potassium 3.9 3.7 Chloride 111 H 112 H Carbon Dioxide 20.1 20.8 Anion Gap 12 12 BUN 23 19 Creatinine 1.9 H 1.8 H Estim Creat Clear Calc 22.4 L 23.6 L eGFR 27 L 28 L BUN/Creatinine Ratio 12 11 L Glucose 171 H 160 H Calculated Osmolality 292 293 Calcium 8.9 9.1 Corrected Calcium 8.9 9.3 Phosphorus 3.7 4.3 Magnesium 1.5 L 1.4 L Total Bilirubin 0.2 L 0.2 L AST 14 11 ALT 7 L < 7 L Alkaline Phosphatase 61 60 Total Protein 6.7 6.6 Albumin 4.0 3.8 Globulin 2.7 2.8 Albumin/Globulin Ratio 1.5 1.4 Stool Occult Blood Positive A Quality Measures Quality Measures none Advance care planning discussed with:: patient Assessment & Plan Assessment Current Active Medications: Generic Name Dose Route Start Last Admin Trade Name Fretyler PRN Reason Stop Dose Admin Acetaminophen 650 mg 02/05/25 15:28 Acetaminophen 325 Mg Tablet PO 03/07/25 15:27 Q6H PRN Fever >101.5 Acetaminophen 650 mg 02/13/25 10:57 Acetaminophen 325 Mg Tablet PO 03/08/25 09:50 Q6HR PRN Pain 1-3 Hydrocodone Bitart/Acetaminophen 1 tab 02/11/25 23:54 02/13/25 12:12 Hydrocodone/Apap 10/325 Tab PO 02/16/25 23:53 1 tab Q6HR PRN Administration PAIN SCALE 4-10(Mod-Sev Alprazolam 0.5 mg 02/10/25 16:48 02/12/25 22:10 Alprazolam 0.25 Mg Tablet PO 02/15/25 16:47 0.5 mg BID PRN Administration Anxiety Amlodipine Besylate 10 mg 02/11/25 09:00 02/13/25 08:52 Amlodipine Besylate 5 Mg Tablet PO 03/13/25 08:59 Not Given QDAY EMMETT Apixaban 5 mg 02/05/25 21:00 02/12/25 09:19 Apixaban 2.5 Mg Tablet PO 03/07/25 20:59 5 mg BID EMMETT Administration Dextrose 25 ml 02/05/25 17:40 Dextrose 50%-Water Inj 50 Ml Syringe IV 03/07/25 17:39 Q15MIN PRN BG 50-70 responsive npo pt Dextrose 50 ml 02/05/25 17:40 Dextrose 50%-Water Inj 50 Ml Syringe IV 03/07/25 17:39 Q15MIN PRN BG <50 OR BG <70 & pt unresponsive Duloxetine HCl 60 mg 02/06/25 09:00 02/13/25 08:52 Duloxetine Hcl 30 Mg Capsule PO 03/08/25 08:59 Not Given QDAY EMMETT Ferrous Sulfate 325 mg 02/09/25 08:30 02/13/25 08:52 Ferrous Sulf 325 Mg Tablet PO 03/11/25 08:29 Not Given QOD EMMETT Glucagon 1 mg 02/05/25 17:40 Glucagon Inj 1 Mg Vial IM Q15MIN PRN BG <70, and no IV access Dextrose/Sodium Chloride 1,000 mls @ 100 mls/hr 02/12/25 08:45 02/13/25 02:01 D5-Ns IV 03/14/25 08:44 100 mls/hr .Q10H EMMETT Administration Metronidazole 500 mg in 100 mls @ 200 mls/hr 02/12/25 22:09 02/13/25 06:02 Flagyl 500 Mg Iv IV 02/19/25 22:08 200 mls/hr Q8HR EMMETT Administration Ciprofloxacin/Dextrose 200 mg in 100 mls @ 100 mls/hr 02/13/25 07:00 02/13/25 09:06 Cipro Ivpb IV 02/20/25 06:59 Not Given Q12HR EMMETT Insulin Human Lispro 0 unit 02/06/25 07:30 02/13/25 12:11 Insulin Lispro (Admelog) 1 Unit/0.01 Ml Unit SC 03/08/25 07:29 2 unit AC EMMETT Administration Protocol Labetalol HCl 10 mg 02/05/25 17:45 Labetalol Inj 5 Mg/Ml Vial 20 Ml IVP 03/07/25 17:44 Q4H PRN SBP > 170 or DBP > 100 Levothyroxine Sodium 50 mcg 02/06/25 06:00 02/13/25 05:55 Levothyroxine Sodium 25 Mcg Tablet PO 03/08/25 05:59 Not Given ACBR EMMETT Lisinopril 20 mg 02/05/25 17:45 02/07/25 07:59 Lisinopril 20 Mg Tablet PO 03/07/25 17:44 20 mg QDAY EMMETT Administration Metoclopramide HCl 5 mg 02/07/25 08:01 02/11/25 15:15 Metoclopramide Inj 5 Mg/Ml Vial 2 Ml IVP 03/09/25 08:00 5 mg Q6H PRN Administration NAUSEA OR VOMITING Protocol Pantoprazole Sodium 40 mg 02/06/25 21:00 02/13/25 08:52 Pantoprazole 40 Mg Tablet PO 03/08/25 20:59 Not Given BID EMMETT Polyethylene Glycol 17 gm 02/07/25 18:45 02/13/25 08:53 Polyethylene Glycol 17 Gm Packet PO 03/09/25 18:44 Not Given QDAY EMMETT Simethicone 80 mg 02/07/25 09:53 02/12/25 20:27 Simethicone 80 Mg Chew PO 03/09/25 09:52 80 mg QID PRN Administration GAS Sucralfate 1 gm 02/06/25 07:15 02/07/25 14:24 Sucralfate Susp 1 Gm/10 Ml Udc PO 03/08/25 07:14 1 gm TID EMMETT Administration Plan Summary: Ms. Temple is a 78-year-old female with history of atrial fibrillation, hypertension, diabetes, duodenal ulcer, chronic pain, multiple surgeries for chronic back pain, diverticulosis, IBS and sleep apnea who presented to [facility] with a chief complaint of abdominal pain. Patient admitted for colitis. hx of nausea & vomiting, & chronic constipation. #GOOD Ddx: ATN 2/2 ischemia -She had several episodes of hypotension and worsening anemia of unknown cause during her hospital stay, likely resulting in ATN. -Nephrology consult: Patient has BUN 27, Cr 3.4, and eGFR 13, which signifies significant renal function decrease as compared to her admit lab values of BUN, Cr, and eGFR of 3, 1.0, and 58 respectively. Given the patient's diarrhea, the patient was most likely dehydrated, but had elevated BP due to her pain. Once her pain was controlled, it is likely that her BP decreased, which in addition to her dehydrated status prior to admission, resulted in decreased blood flow to the kidneys. The decreased blood flow likely caused ATN, which ultimately showed up in a delayed manner on her labs. If this is the case, then her decreased renal function will plateau and slowly recover with adequate hydration. -Gradual improvement in kidney function markers: -Labs Cr 2.8, 2.4, 1.9, 1.8 (02/13) eGFR 17, 20, 27, 28 (02/13) Plan: ? Renally dose meds, avoid overdiuresis and NEPHROTOXINS ? Daily CMP - Hold lisinopril 20mg daily - IV NS 125ml/h - Nephrology recommends: -- Ordered urine Na, urine Cr, and urine protein. -- Avoid nephrotoxic drugs. -- Recommend continuing IV hydration. -- Will continue to monitor renal function. -- Nephrology will continue to follow. # Diverticulitis of sigmoid colon # Hx of Diverticulosis # Constipation # IBS by History # Hx of Duodenal ulcer Pain likely related to divirticulitis vs pud. Patient with history of diverticulosis and IBS On admission patient presented with complaint of abdominal pain with associated symptoms of chills and non-bloody diarrhea CT abdomen pelvis indicated mild sigmoid diverticulitis with no abscess Blood ctx did not show growth of bacteria. FOBT positive and Hgb 8.0 (02/12), necessitating colonoscopy to evaluate the area of diverticulitis for possible source of bleeding. Patient also has a hx of duodenal ulcer, and has been feeling abdominal pain, cramping, and bloating that she usually feels with associated with it. Patient has a hx of H pylori infection and should be retested for possibly of recurrent infection. Plan: -Continue IV ciprofloxacin (02/05 -02/12/25) and Flagyl (02/05/25 - ) -Resume Simethicone for bloating -Resume MiraLAX -Recommend high fiber diet, biofiber in AM per outpatient GI recs -Continue LR 70 cc/h -Follow CBC CMP in a.m. -Follow up blood culture -Zofran IV PRN for nausea/vomiting -Protonix 40 mg IV BID -Added GI cocktail and gave Reglan 10 mg x1 -GI Dr Osuna consulted for evaluation of the diverticulitis and positive FOBT test result. -Diet switched to clear liquids +plant-based protein in preparation for EGD (02/12) -GI recommends: -outpatient colonoscopy in about 12wk postdischarge from the hospital. -increase water intake, consume more plant-based diet, and use stool softeners for treatment of constipation. -pending GI recs post-procedure. -H pylori culture #Normocytic Anemia -Hgb 9-10 since August 2024, MCV 78-83 -Patient reported maroon-colored stool (02/12) -Pt has high risk for GI bleed given diverticular disease as stated above. -FOBT positive (02/12) -iron sat 18 (L) and serum iron 64 (L) consistent with mild iron deficiency (02/07) -%retic count 1.9 (H) and absolute retic count 62.9 (02/07) -vitB12 805 and folate 24 in-range both (02/07) Hgb 8.1, MCV 83 (02/13) Plan: -Ferrous sulfate 325mg QOD -Eliquis held in context of low-elis Hgb and positve FOBT. -Repeat CBC in AM -Transfuse if Hgb <8.0 # Hypertension On admission patient with BP 179/88; SBP 140-160/60-80 while in hospital On home med benazepril 20 mg Qday Plan: ?Will allow for slightly higher blood pressure to avoid recurrent hypotension -Resume PO amlodipine 10 mg Qday -Hold lisinopril 20mg daily -Labatelol for SBP > 170 #Diabetes Mellitus Last A1c 6.8% on Jun 2024 glc 160 (02/13 AM) Plan: -SSI+accuchecks -Hypoglycemia protocol # Atrial-fibrillation history, likely paroxysmal -Pt with a hx of afib which was markedly improved after ablation. -EKG from 02/06 demonstrated sinus rhythm, indicating sudden onset. -[id number] score 5, has-bled score 8.9% (high risk for bleed, recommended alternative therapy). -Echo: Normal LV size and function. Normal LV diastolic filling pattern for age. Estimated EF at 55-60 %. The RV is normal in size and systolic function. The estimated RVSP, 35 mmHg. RAP 5. Mitral thickening mild mitral regurgitation. Plan: ? Will revisit risk/factor of anticoagulation prior to resuming ELIQUIS #Early heart failure Pt complaining of chest pain and SOB on 02/11 CXR: Mild enlargement cardiac contour. Prominent vascular congestion with early septal edema at the lung bases. Prominent osteopenia EKG: unremarkable Trop i <0.02 # Hypothyroidism Plan: -Restart home med levothyroxine 50 mcg # Hx of depression # Hx of anxiety Plan: -Restart PRN alprazolam 0.5 mg BID -Restart home med duloxetine 60 mg Qday #Health Maintenance Disposition: MedTele DVT prophylaxis: SCDs GI prophylaxis: Protonix IV BID Diet: PUD CODE STATUS: Full Case was discussed with attending physician, Dr. Blevins, and senior resident Dr Mock. Marine Ford, DO PGY I Attending Provider Attestation/Addendum Patient here for diverticulitis, acute kidney injury, she has history of peptic ulcer disease. She has atrial fibrillation. Patient complains of abdominal discomfort and bloatedness. GI evaluation with EGD schduled for today. Patient to receive pain medication. She is afebrile but has a lot of abd pain.. Discussed with housestaff.
--- NOTE | 2025-02-13 14:10 | PD.RESPRO ---
Documentation for date of: 02/13/25 Subjective Subjective Interval history: Overnight events: No acute events overnight. GI was consulted over the weekend due to abdominal pain w/ downtrending H&H. Was found to have positive FOBT. This in addition to patient history of peptic ulcer disease raised concern for GI bleed, GI planned for fiberoptic EGD to be done later today. Patient was seen and examined at bedside. AM vitals and labs reviewed. Renal function lab values have improved with BUN 19, creatinine 1.8, GFR 28. Only major concern is pain over abdomen. No other complaints at this time. Review of systems otherwise negative except for what is mentioned above. Exam Vital Signs Temp Pulse Resp BP Pulse Ox O2 Del Method O2 Flow Rate 98.0 F 87 22 H 167/74 H 94 L Nasal Cannula 2 02/13/25 12:00 02/13/25 12:02/13/25 12:02/13/25 12:00 02/13/25 12:00 02/13/25 12:00 02/11/25 16:00 Narrative Exam Physical Exam: General: Alert, acute distress. Skin: Warm, dry, intact, no obvious rash. Head: Normocephalic, atraumatic. Eye: Normal conjunctiva, PERRL. Throat: Oral mucosa moist. No obvious lesions in oropharynx. Cardiovascular: Regular rate and rhythm, no murmur, +S1/S2. Respiratory: Lungs are clear to auscultation, respirations unlabored, no crackles, no wheezing. Gastrointestinal: Tense, tender, distended. Extremities: No edema, no cyanosis, no clubbing. 2+ radial pulse bilaterally, 2+ posterior tibial pulse bilaterally. Neuro: No focal deficits observed. Conversant, moving all extremities. No overt cerebellar signs/incoordination. Psychiatric: Cooperative, appropriate affect. Objective Labs 02/13/25 07:49 02/13/25 07:49 Labs: Laboratory Results - last 24 hr 02/12/25 02/12/25 02/13/25 10:37 19:14 07:49 WBC 10.3 10.3 RBC 3.09 L 3.13 L Hgb 8.0 L 8.1 L Hct 25.9 L 26.1 L MCV 84 83 MCH 25.9 25.9 MCHC 30.9 L 31.0 RDW Std Deviation 49.8 H 50.0 H Plt Count 323 D 333 Neut % (Auto) 69 71 Lymph % (Auto) 18 16 [place] % (Auto) 11 11 Eos % (Auto) 1 2 Baso % (Auto) 0 1 Neut # (Auto) 7.1 7.3 Lymph # (Auto) 1.8 1.6 [place] # (Auto) 1.1 H 1.1 H Eos # (Auto) 0.1 0.2 Baso # (Auto) 0.0 0.1 Immature Gran # (Auto) 0.05 H 0.04 H Absolute Nucleated RBC 0.00 0.00 Immature Gran % 1 H 0 Nucleated RBC % 0 0 Sodium 143 145 Potassium 3.9 3.7 Chloride 111 H 112 H Carbon Dioxide 20.1 20.8 Anion Gap 12 12 BUN 23 19 Creatinine 1.9 H 1.8 H Estim Creat Clear Calc 22.4 L 23.6 L eGFR 27 L 28 L BUN/Creatinine Ratio 12 11 L Glucose 171 H 160 H Calculated Osmolality 292 293 Calcium 8.9 9.1 Corrected Calcium 8.9 9.3 Phosphorus 3.7 4.3 Magnesium 1.5 L 1.4 L Total Bilirubin 0.2 L 0.2 L AST 14 11 ALT 7 L < 7 L Alkaline Phosphatase 61 60 Total Protein 6.7 6.6 Albumin 4.0 3.8 Globulin 2.7 2.8 Albumin/Globulin Ratio 1.5 1.4 Stool Occult Blood Positive A Quality Measures Quality Measures none Advance care planning discussed with:: patient Assessment & Plan Assessment Current Active Medications: Generic Name Dose Route Start Last Admin Trade Name Freq PRN Reason Stop Dose Admin Acetaminophen 650 mg 02/05/25 15:28 Acetaminophen 325 Mg Tablet PO 03/07/25 15:27 Q6H PRN Fever >101.5 Acetaminophen 650 mg 02/13/25 10:57 Acetaminophen 325 Mg Tablet PO 03/08/25 09:50 Q6HR PRN Pain 1-3 Hydrocodone Bitart/Acetaminophen 1 tab 02/11/25 23:54 02/13/25 12:12 Hydrocodone/Apap 10/325 Tab PO 02/16/25 23:53 1 tab Q6HR PRN Administration PAIN SCALE 4-10(Mod-Sev Alprazolam 0.5 mg 02/10/25 16:48 02/12/25 22:10 Alprazolam 0.25 Mg Tablet PO 02/15/25 16:47 0.5 mg BID PRN Administration Anxiety Amlodipine Besylate 10 mg 02/11/25 09:00 02/13/25 08:52 Amlodipine Besylate 5 Mg Tablet PO 03/13/25 08:59 Not Given QDAY EMMETT Apixaban 5 mg 02/05/25 21:00 02/12/25 09:19 Apixaban 2.5 Mg Tablet PO 03/07/25 20:59 5 mg BID EMMETT Administration Dextrose 25 ml 02/05/25 17:40 Dextrose 50%-Water Inj 50 Ml Syringe IV 03/07/25 17:39 Q15MIN PRN BG 50-70 responsive npo pt Dextrose 50 ml 02/05/25 17:40 Dextrose 50%-Water Inj 50 Ml Syringe IV 03/07/25 17:39 Q15MIN PRN BG <50 OR BG <70 & pt unresponsive Duloxetine HCl 60 mg 02/06/25 09:00 02/13/25 08:52 Duloxetine Hcl 30 Mg Capsule PO 03/08/25 08:59 Not Given QDAY EMMETT Ferrous Sulfate 325 mg 02/09/25 08:30 02/13/25 08:52 Ferrous Sulf 325 Mg Tablet PO 03/11/25 08:29 Not Given QOD EMMETT Glucagon 1 mg 02/05/25 17:40 Glucagon Inj 1 Mg Vial IM Q15MIN PRN BG <70, and no IV access Dextrose/Sodium Chloride 1,000 mls @ 100 mls/hr 02/12/25 08:45 02/13/25 13:26 D5-Ns IV 03/14/25 08:44 100 mls/hr .Q10H EMMETT Administration Metronidazole 500 mg in 100 mls @ 200 mls/hr 02/12/25 22:09 02/13/25 13:26 Flagyl 500 Mg Iv IV 02/19/25 22:08 200 mls/hr Q8HR EMMETT Administration Ciprofloxacin/Dextrose 200 mg in 100 mls @ 100 mls/hr 02/13/25 07:00 02/13/25 09:06 Cipro Ivpb IV 02/20/25 06:59 Not Given Q12HR EMMETT Insulin Human Lispro 0 unit 02/06/25 07:30 02/13/25 12:11 Insulin Lispro (Admelog) 1 Unit/0.01 Ml Unit SC 03/08/25 07:29 2 unit AC EMMETT Administration Protocol Labetalol HCl 10 mg 02/05/25 17:45 Labetalol Inj 5 Mg/Ml Vial 20 Ml IVP 03/07/25 17:44 Q4H PRN SBP > 170 or DBP > 100 Levothyroxine Sodium 50 mcg 02/06/25 06:00 02/13/25 05:55 Levothyroxine Sodium 25 Mcg Tablet PO 03/08/25 05:59 Not Given ACBR EMMETT Lisinopril 20 mg 02/05/25 17:45 02/07/25 07:59 Lisinopril 20 Mg Tablet PO 03/07/25 17:44 20 mg QDAY EMMETT Administration Metoclopramide HCl 5 mg 02/07/25 08:01 02/11/25 15:15 Metoclopramide Inj 5 Mg/Ml Vial 2 Ml IVP 03/09/25 08:00 5 mg Q6H PRN Administration NAUSEA OR VOMITING Protocol Pantoprazole Sodium 40 mg 02/06/25 21:00 02/13/25 08:52 Pantoprazole 40 Mg Tablet PO 03/08/25 20:59 Not Given BID EMMETT Polyethylene Glycol 17 gm 02/07/25 18:45 02/13/25 08:53 Polyethylene Glycol 17 Gm Packet PO 03/09/25 18:44 Not Given QDAY EMMETT Simethicone 80 mg 02/07/25 09:53 02/12/25 20:27 Simethicone 80 Mg Chew PO 03/09/25 09:52 80 mg QID PRN Administration GAS Sucralfate 1 gm 02/06/25 07:15 02/07/25 14:24 Sucralfate Susp 1 Gm/10 Ml Udc PO 03/08/25 07:14 1 gm TID EMMETT Administration Plan Mrs. Temple is a pleasant 79 year old lady with a relevant medical history of A-fib on Eliquis, HTN, duodenal ulcer, diverticulosis, T2DM, hypothyroidism, and IBS, who presented to [facility] on 02/05/25 with abdominal pain and diarrhea. Nephrology was consulted due to concerns of new onset GOOD. #New onset GOOD due to ATN 2/2 ischemia Patient has BUN 27, Cr 3.4, and eGFR 13, which signifies significant renal function decrease as compared to her admit lab values of BUN, Cr, and eGFR of 3, 1.0, and 58 respectively. Given the patient's diarrhea, the patient was most likely dehydrated, but had elevated BP due to her pain. Once her pain was controlled, it is likely that her BP decreased, which in addition to her dehydrated status prior to admission, resulted in decreased blood flow to the kidneys. The decreased blood flow likely caused ATN, which ultimately showed up in a delayed manner on her labs. If this is the case, then her decreased renal function will plateau and slowly recover with adequate hydration. - Avoid nephrotoxic drugs. - Recommend continuing IV hydration. - Will continue to monitor renal function. - Renal function improving on IV hydration. Will take time for Cr to return to baseline. - Nephrology will continue to follow.
--- NOTE | 2025-02-13 17:07 | PC.NURSE ---
Pt requesting prn dose of xanax per md Osuna ok to give with a small zip of water prior to procedure this evening.
[2025-02-13 18:05] LABS: Basophils # (Auto) 0.0 Thou/mm3 (0.0-0.2); Basophils % (Auto) 0 % (0-2.5); Eosinophils # (Auto) 0.1 Thou/mm3 (0.0-0.5); Eosinophils % (Auto) 1 % (0-10); Hematocrit 24.0 % (36.0-46.0); Immature Granulocytes Auto 0.01 Thou/mm3 (0.00-0.00); Lymphocytes # (Auto) 1.2 Thou/mm3 (1.0-4.8); Lymphocytes % (Auto) 17 % (10-50); Mean Corpuscular HGB Conc 31.7 g/dl (31.0-37.0); Mean Corpuscular Hemoglobin 25.7 pg (25.0-35.0); Mean Corpuscular Volume 81 fL (80-100); Monocytes # (Auto) 0.8 Thou/mm3 (0.0-0.8); Monocytes % (Auto) 11 % (0-12); Neutrophils # (Auto) 5.0 Thou/mm3 (1.8-7.7); Neutrophils % (Auto) 70 % (37-80); Nucleated Red Blood Cell # 0.00 Thou/mm3 (0.00-0.00); Nucleated Red Blood Cell % 0 /100 WBC (0); Platelet Count 310 Thou/mm3 (140-440); RDW Standard Deviation 49.0 fL (36.4-46.3); Red Blood Count 2.96 Miln/mm3 (4.00-5.20); White Blood Count 7.2 Thou/mm3 (3.6-11.0)
--- NOTE | 2025-02-13 18:20 | PC.NURSE ---
MD Mock aware of pts current bps 188/61-82. Per MD continue with Hydralazine order that will be prescribed.
[2025-02-13 18:26] LABS: Hemoglobin 7.6 g/dL (12.0-16.0)
--- NOTE | 2025-02-13 18:31 | PC.NURSE ---
Spoke to Sarah pharmacist to verify dose of hydralazine per pharmacist ok to give without parameters with current vs of 188/61-82.
[2025-02-13] MEDS: hydrALAZINE INJ 20 MG/ML VIAL 10 MG IVP (18:33)
--- NOTE | 2025-02-13 19:00 | PC.NURSE ---
Pt transfered via gurney for endo procedure. Pt stable aoox4. Last bp 175/72-82 HR post hydralazine vs.
--- NOTE | 2025-02-13 20:14 | SUR.PHASEI ---
pt received from OR in recovery bay 5. pt asleep but responds to voice, breathing unlabored on 2l nc. v/s stable. report received from Yasemin PALACIOS.
--- NOTE | 2025-02-13 21:10 | SUR.PHASEI ---
pt awake and alert, breathing unlabored on 2l nc. v/s stable. report called to Vita PALACIOS. pt will be transferred to room at this time.
[2025-02-13] MEDS: PANTOPRAZOLE 40 MG TABLET PO (22:17)
[2025-02-13] MEDS: CIPROFLOXACIN/D5w 200 MG IVPB 200 MG/100 ML BAG 100 MG IV (22:18)
[2025-02-13] MEDS: SIMETHICONE 80 MG CHEW PO (22:37)
[2025-02-14] VITALS: BP 131/58; PULSE 78; PULSE 86; RESP 16; TEMP 36.5; O2SAT 99
[2025-02-14] MEDS: DEXTROSE 5%-NS 1,000 ML 100 ML IV
[2025-02-14 04:00] VITALS: BP 142/72; PULSE 74; PULSE 75; RESP 22; TEMP 36.6; O2SAT 95
[2025-02-14] MEDS: LEVOTHYROXINE SODIUM 25 MCG TABLET 50 MCG PO (05:23)
[2025-02-14] MEDS: metroNIDAZOLE/NS 500 MG IVPB 500 MG/100 ML BAG 200 MG IV (05:23)
[2025-02-14 08:00] VITALS: BP 163/64; PULSE 80; PULSE 87; RESP 18; TEMP 36.4; O2SAT 93
[2025-02-14 08:17] VITALS: BP 163/64; PULSE 87
[2025-02-14] MEDS: PANTOPRAZOLE 40 MG TABLET PO (08:17)
[2025-02-14] MEDS: DULoxetine HCL 30 MG CAPSULE 60 MG PO (08:17)
[2025-02-14] MEDS: ACETAMINOPHEN 325 MG TABLET 650 MG PO (08:23)
[2025-02-14 09:08] VITALS: BP 163/64; PULSE 87
[2025-02-14 09:20] LABS: Basophils # (Auto) 0.0 Thou/mm3 (0.0-0.2); Basophils % (Auto) 0 % (0-2.5); Eosinophils # (Auto) 0.1 Thou/mm3 (0.0-0.5); Eosinophils % (Auto) 1 % (0-10); Hematocrit 26.5 % (36.0-46.0); Immature Granulocytes Auto 0.06 Thou/mm3 (0.00-0.00); Lymphocytes # (Auto) 1.6 Thou/mm3 (1.0-4.8); Lymphocytes % (Auto) 17 % (10-50); Mean Corpuscular HGB Conc 31.3 g/dl (31.0-37.0); Mean Corpuscular Hemoglobin 26.1 pg (25.0-35.0); Mean Corpuscular Volume 83 fL (80-100); Monocytes # (Auto) 1.0 Thou/mm3 (0.0-0.8); Monocytes % (Auto) 11 % (0-12); Neutrophils # (Auto) 6.7 Thou/mm3 (1.8-7.7); Neutrophils % (Auto) 70 % (37-80); Nucleated Red Blood Cell # 0.00 Thou/mm3 (0.00-0.00); Nucleated Red Blood Cell % 0 /100 WBC (0); Platelet Count 368 Thou/mm3 (140-440); RDW Standard Deviation 50.9 fL (36.4-46.3); Red Blood Count 3.18 Miln/mm3 (4.00-5.20); White Blood Count 9.6 Thou/mm3 (3.6-11.0)
[2025-02-14 09:43] LABS: Alanine Aminotransferase 8 U/L (10-49); Albumin, Serum 3.8 gm/dL (3.4-4.8); Albumin/Globulin Ratio 1.3 (1.2-2.2); Alkaline Phosphatase 59 U/L (46-116); Anion Gap 13 (7-16); Aspartate Amino Transferase 11 U/L (0-34); BUN/Creatinine Ratio 8 Ratio (12-20); Bilirubin,Total 0.2 mg/dL (0.3-1.2); Blood Urea Nitrogen 14 mg/dL (9-23); Calcium 8.5 mg/dL (8.3-10.6); Calcium (Corrected) 8.7 mg/dL (8.5-10.1); Carbon Dioxide 21.9 mMol/L (20.0-31.0); Chloride 113 mMol/L (98-107); Creatinine (Component) 1.7 mg/dL (0.6-1.3); Estimated Creatinine Clearance 25.0 mL/min (>60); Globulin 2.9 gm/dL (2.3-3.5); Glucose 135 mg/dL (74-106); Magnesium 1.2 mg/dL (1.6-2.6); Osmolality,Calculated 296 (275-295); Phosphorous 4.7 mg/dL (2.4-5.1); Potassium 3.3 mMol/L (3.4-5.1); Sodium 148 mMol/L (136-145); Total Protein 6.7 gm/dL (5.7-8.2); eGFR 31 See Note
[2025-02-14 09:49] LABS: Hemoglobin 8.3 g/dL (12.0-16.0)
[2025-02-14] MEDS: SIMETHICONE 80 MG CHEW PO (09:57)
--- NOTE | 2025-02-14 10:47 | ESPR_ITS ---
Documentation for date of: 02/14/25 Subjective Subjective Interval history: Overnight events: No acute events overnight. Patient was seen and examined at bedside. AM vitals and labs reviewed. Renal lab values continue to improve with BUN 14, creatinine 1.7, and GFR 31. Ins/outs 2800/0, however patient stated that yesterday she used the bathroom about 4 times for urination. During today's visit, the patient seemed much more relaxed as her abdominal pain has significantly calmed down. Patient still endorses pain in RUQ and LUQ of her abdomen. Patient also noted that her hands have swelled up a bit. Otherwise no new complaints. EGD showed esophagitis with biopsies taken. Pathology is currently pending. Outpatient GI is scheduled for the patient. Review of systems otherwise negative except for what is mentioned above. Exam Vital Signs Temp Pulse Resp BP Pulse Ox O2 Del Method O2 Flow Rate 97.6 F 87 18 163/64 H 93 L Room Air 2 02/14/25 08:00 02/14/25 09:08 02/14/25 08:00 02/14/25 09:08 02/14/25 08:00 02/14/25 08:00 02/13/25 21:00 Narrative Exam Physical Exam: General: Alert, no acute distress. Skin: Warm, dry, intact, no obvious rash. Head: Normocephalic, atraumatic. Eye: Normal conjunctiva, PERRL. Throat: Oral mucosa moist. No obvious lesions in oropharynx. Cardiovascular: Regular rate and rhythm, no murmur, +S1/S2. Respiratory: Lungs are clear to auscultation, respirations unlabored, no crackles, no wheezing. Gastrointestinal: Soft, tender RUQ & LUQ, slightly distended. No guarding or rebound tenderness. Extremities: No edema, no cyanosis, no clubbing. 2+ radial pulse bilaterally, 2+ pedal pulse bilaterally. Neuro: No focal deficits observed. Conversant, moving all extremities. No overt cerebellar signs/incoordination. Psychiatric: Cooperative, appropriate affect. Objective Labs 02/14/25 07:57 02/14/25 07:57 Labs: Laboratory Results - last 24 hr 02/13/25 02/14/25 17:16 07:57 WBC 7.2 9.6 RBC 2.96 L 3.18 L Hgb 7.6 L 8.3 L Hct 24.0 L 26.5 L MCV 81 83 MCH 25.7 26.1 MCHC 31.7 31.3 RDW Std Deviation 49.0 H 50.9 H Plt Count 310 368 D Neut % (Auto) 70 70 Lymph % (Auto) 17 17 [place] % (Auto) 11 11 Eos % (Auto) 1 1 Baso % (Auto) 0 0 Neut # (Auto) 5.0 6.7 Lymph # (Auto) 1.2 1.6 [place] # (Auto) 0.8 1.0 H Eos # (Auto) 0.1 0.1 Baso # (Auto) 0.0 0.0 Immature Gran # (Auto) 0.01 H 0.06 H Absolute Nucleated RBC 0.00 0.00 Immature Gran % 0 1 H Nucleated RBC % 0 0 Sodium 148 H Potassium 3.3 L Chloride 113 H Carbon Dioxide 21.9 Anion Gap 13 BUN 14 Creatinine 1.7 H Estim Creat Clear Calc 25.0 L eGFR 31 L BUN/Creatinine Ratio 8 L Glucose 135 H Calculated Osmolality 296 H Calcium 8.5 Corrected Calcium 8.7 Phosphorus 4.7 Magnesium 1.2 L Total Bilirubin 0.2 L AST 11 ALT 8 L Alkaline Phosphatase 59 Total Protein 6.7 Albumin 3.8 Globulin 2.9 Albumin/Globulin Ratio 1.3 Quality Measures Quality Measures none Advance care planning discussed with:: patient Assessment & Plan Assessment Current Active Medications: Generic Name Dose Route Start Last Admin Trade Name Freq PRN Reason Stop Dose Admin Acetaminophen 650 mg 02/05/25 15:28 Acetaminophen 325 Mg Tablet PO 03/07/25 15:27 Q6H PRN Fever >101.5 Acetaminophen 650 mg 02/13/25 10:57 02/14/25 08:23 Acetaminophen 325 Mg Tablet PO 03/08/25 09:50 650 mg Q6HR PRN Administration Pain 1-3 Hydrocodone Bitart/Acetaminophen 1 tab 02/11/25 23:54 02/13/25 22:30 Hydrocodone/Apap 10/325 Tab PO 02/16/25 23:53 1 tab Q6HR PRN Administration PAIN SCALE 4-10(Mod-Sev Alprazolam 0.5 mg 02/10/25 16:48 02/13/25 17:12 Alprazolam 0.25 Mg Tablet PO 02/15/25 16:47 0.5 mg BID PRN Administration Anxiety Amlodipine Besylate 5 mg 02/15/25 09:00 Amlodipine Besylate 5 Mg Tablet PO 03/17/25 08:59 QDAY EMMETT Apixaban 5 mg 02/05/25 21:00 02/12/25 09:19 Apixaban 2.5 Mg Tablet PO 03/07/25 20:59 5 mg BID EMMETT Administration Dextrose 25 ml 02/05/25 17:40 Dextrose 50%-Water Inj 50 Ml Syringe IV 03/07/25 17:39 Q15MIN PRN BG 50-70 responsive npo pt Dextrose 50 ml 02/05/25 17:40 Dextrose 50%-Water Inj 50 Ml Syringe IV 03/07/25 17:39 Q15MIN PRN BG <50 OR BG <70 & pt unresponsive Duloxetine HCl 60 mg 02/06/25 09:00 02/14/25 08:17 Duloxetine Hcl 30 Mg Capsule PO 03/08/25 08:59 60 mg QDAY EMMETT Administration Ferrous Sulfate 325 mg 02/09/25 08:30 02/13/25 08:52 Ferrous Sulf 325 Mg Tablet PO 03/11/25 08:29 Not Given QOD EMMETT Glucagon 1 mg 02/05/25 17:40 Glucagon Inj 1 Mg Vial IM Q15MIN PRN BG <70, and no IV access Hydralazine HCl 10 mg 02/13/25 19:20 Hydralazine Inj 20 Mg/Ml Vial IVP 03/15/25 19:19 Q4H PRN SBP > 170 Dextrose/Sodium Chloride 1,000 mls @ 100 mls/hr 02/12/25 08:45 02/14/25 00:00 D5-Ns IV 03/14/25 08:44 100 mls/hr .Q10H EMMETT Administration Metronidazole 500 mg in 100 mls @ 200 mls/hr 02/12/25 22:09 02/14/25 05:23 Flagyl 500 Mg Iv IV 02/19/25 22:08 200 mls/hr Q8HR EMMETT Administration Insulin Human Lispro 0 unit 02/06/25 07:30 02/14/25 08:18 Insulin Lispro (Admelog) 1 Unit/0.01 Ml Unit SC 03/08/25 07:29 Not Given AC [facility] Protocol Levothyroxine Sodium 50 mcg 02/06/25 06:00 02/14/25 05:23 Levothyroxine Sodium 25 Mcg Tablet PO 03/08/25 05:59 50 mcg ACBR EMMETT Administration Metoclopramide HCl 5 mg 02/07/25 08:01 02/11/25 15:15 Metoclopramide Inj 5 Mg/Ml Vial 2 Ml IVP 03/09/25 08:00 5 mg Q6H PRN Administration NAUSEA OR VOMITING Protocol Pantoprazole Sodium 40 mg 02/06/25 21:00 02/14/25 08:17 Pantoprazole 40 Mg Tablet PO 03/08/25 20:59 40 mg BID EMMETT Administration Polyethylene Glycol 17 gm 02/07/25 18:45 02/14/25 08:18 Polyethylene Glycol 17 Gm Packet PO 03/09/25 18:44 Not Given QDAY EMMETT Simethicone 80 mg 02/14/25 09:30 02/14/25 09:57 Simethicone 80 Mg Chew PO 03/16/25 09:29 80 mg QID EMMETT Administration Sucralfate 1 gm 02/06/25 07:15 02/07/25 14:24 Sucralfate Susp 1 Gm/10 Ml Udc PO 03/08/25 07:14 1 gm TID EMMETT Administration Plan Mrs. Temple is a pleasant 79 year old lady with a relevant medical history of A-fib on Eliquis, HTN, duodenal ulcer, diverticulosis, T2DM, hypothyroidism, and IBS, who presented to [facility] on 02/05/25 with abdominal pain and diarrhea. Nephrology was consulted due to concerns of new onset GOOD. #New onset GOOD due to ATN 2/2 ischemia Patient has BUN 27, Cr 3.4, and eGFR 13, which signifies significant renal function decrease as compared to her admit lab values of BUN, Cr, and eGFR of 3, 1.0, and 58 respectively. Given the patient's diarrhea, the patient was most likely dehydrated, but had elevated BP due to her pain. Once her pain was controlled, it is likely that her BP decreased, which in addition to her dehydrated status prior to admission, resulted in decreased blood flow to the kidneys. The decreased blood flow likely caused ATN, which ultimately showed up in a delayed manner on her labs. If this is the case, then her decreased renal function will plateau and slowly recover with adequate hydration. - Avoid nephrotoxic drugs. - Recommended to patient adequate hydration. - Renal function improving. Will take time for Cr to return to baseline. - Patient to follow nephrology outpatient. Patient discussed desire to establish with Dr. Chambers. Patient was discussed with the Nephrology attending, Dr. Chambers. Thank you for allowing us to participate in the care of this patient. Adrian Harmon, PGY-1
[2025-02-14 12:00] VITALS: BP 95/65; PULSE 85; RESP 18; TEMP 36.4; O2SAT 94
--- NOTE | 2025-02-14 21:37 | ESDS_ITS ---
Planned Discharge Date 02/14/25 DS: Providers Provider Date of admission: 02/05/25 15:28 Primary care physician: Tyrone Langford MD Admitting Provider: Wale Lindsay MD Attending Provider on Admission: Kaitlin Winn MD Consults: 02/08/25 08:46 Consult to Nephrology Routine Comment: New GOOD vs ATN Consulting Provider: Jesus Chambers 02/09/25 09:08 Referral Physical Therapy Routine Comment: Physician Instructions: 02/12/25 11:10 Consult to Gastroenterology Routine Comment: PUD on protonix, acute anemia, +FOBT Consulting Provider: Luz Marina Osuna Attending Provider on DC: Esme Mock MD Discharging Provider: Esme Mock MD DS: Diagnosis Problem List Completed Was Problem List Reviewed/Reconciled?: Yes Hospital Course Hospital Course Hospital course: In summary, 78-year-old female with PMHx of A-fib, HTN, T2DM, duodenal ulcer, IBS, diverticulosis, among other problems, admitted for abdominal pain. She was found to have diverticulitis and has completed course of ANTIBIOTICS. He has also been on PROTONIX BID for peptic ulcer disease. Her symptoms have improved since, pain controlled with meds. He has been tolerating oral intake, h aving regular bowel movement, no nausea, vomiting, abdominal pain. EGD was done showing esophagitis, biopsy was performed, to follow-up with GI within 1-2 weeks of discharge to discuss results. She had ATN in settings of hypotension, continued on IVF's, overall renal function improving, creatinine 1.8, urine output more than adequate. Nephrology team was following, and agreed to discharge. To continue with oral hydration. She was found anemic on admission. Initial FOBT was negative and restarted iron supplements for low iron stores on labs. However hemoglobin continued to decline, prompting repeat FOBT which was positive. EGD ruled out active bleed. Hemoglobin overall stable. Will continue iron supplements outpatient. Case was discussed with attending physician. Esme Mock DO PGY II IMAGE FINDINGS: * ECHO showed:Normal LV size and function. Normal LV diastolic filling pattern for age. Estimated EF at 55-60 %. The RV is normal in size and systolic function. The estimated RVSP, 35 mmHg. RAP 5. Mitral thickening mild mitral regurgitation. * CXR showed early heart failure. PATIENT INSTRUCTIONS: * Follow-up with PCP within 1-2 weeks of discharge. * Follow-up with GI within 2 weeks of discharge regarding biopsy results. * Avoid acidic foods that can cause peptic ulcer flare ups, including: Oranges, gina, limes, grapefruits, pineapple, citrus juices, tomatoes, tomato sauce, ketchup, salsa, pickles, vinegar, hot peppers, chili, spicy sauces, coffee, tea, soda, alcohol, fried foods, fatty meats, fast food, chocolate. * Continue taking daily iron supplements as prescribed below. * Continue taking medications as prescribed below. * Return to Emergency Room if symptoms persist, worsen, or new symptoms develop. ADMISSION DIAGNOSES: GOOD Diverticulitis of sigmoid colon Hx of Diverticulosis Constipation IBS by History Hx of Duodenal ulcer Normocytic Anemia Hypertension Diabetes Mellitus Atrial-fibrillation history, likely paroxysmal Early heart failure Hypothyroidism Hx of depression Hx of anxiety Case was discussed with attending physician. Esme Mock DO PGY II This document was transcribed using voice recognition technology. Minor inaccuracies may be present. Time Spent with Patient Time attestation: Total time spent providing and/or coordinating discharge services: Time spent: Greater than 30 minutes Exam Vital Signs Temp Pulse Resp BP Pulse Ox O2 Del Method O2 Flow Rate 97.6 F 85 18 95/65 94 L Room Air 2 02/14/25 12:00 02/14/25 12:02/14/25 12:02/14/25 12:02/14/25 12:02/14/25 12:02/13/25 21:00 Narrative Exam Physical Exam: General: Alert, no acute distress. Skin: Warm, dry, intact, no obvious rash. Head: Normocephalic, atraumatic. Eye: Normal conjunctiva, PERRL. Throat: Oral mucosa moist. No obvious lesions in oropharynx. Cardiovascular: Regular rate and rhythm, no murmur, +S1/S2. Respiratory: Lungs are clear to auscultation, respirations unlabored, no crackles, no wheezing. Gastrointestinal: Soft, tender RUQ & LUQ, slightly distended. No guarding or rebound tenderness. Extremities: No edema, no cyanosis, no clubbing. 2+ radial pulse bilaterally, 2+ pedal pulse bilaterally. Neuro: No focal deficits observed. Conversant, moving all extremities. No overt cerebellar signs/incoordination. Psychiatric: Cooperative, appropriate affect. Discharge Plan Plan Patient Disposition: HOME (Self Care) Patient condition on transfer: Stable Care Plan Goals: * Follow-up with PCP within 1-2 weeks of discharge. * Follow-up with GI within 2 weeks of discharge regarding biopsy results. * Avoid acidic foods that can cause peptic ulcer flare ups, including: Oranges, gina, limes, grapefruits, pineapple, citrus juices, tomatoes, tomato sauce, ketchup, salsa, pickles, vinegar, hot peppers, chili, spicy sauces, coffee, tea, soda, alcohol, fried foods, fatty meats, fast food, chocolate. * Continue taking daily iron supplements as prescribed below. * Continue taking medications as prescribed below. * Return to Emergency Room if symptoms persist, worsen, or new symptoms develop. Prescriptions/Referrals Prescriptions/Med Rec: New ferrous sulfate 325 mg (65 mg iron) Tablet,Delayed Release (Dr/Ec) 325 mg PO QOD Qty: 30 0RF Continued metformin 500 mg Tablet 500 mg PO DAILY acetaminophen 500 mg Tablet 500 mg PO PRN MDD 4 PRN (Reason: Pain) levothyroxine 50 mcg Tablet 50 mcg PO DAILY cholecalciferol (vitamin D3) [Vitamin D3] 25 mcg (1,000 unit) Tablet 25 mcg PO 1XD Align (B.infantis) 4 mg Capsule 4 mg PO DAILY loperamide 2 mg capsule 2 mg PO QDAY alprazolam 0.5 mg tablet 0.5 mg PO BID PRN (Reason: Anxiety) Patient Comments: TAKE 1 TABLET BY MOUTH THREE TIMES DAILY NEEDED FOR ANXIETY pantoprazole 40 mg tablet,delayed release (DR/EC) 40 mg PO BID Patient Comments: TAKE 1 TABLET BY MOUTH DAILY benazepril 20 mg tablet 20 mg PO QDAY ondansetron 4 mg tablet,disintegrating 4 mg PO Q8H PRN (Reason: nausea and vomiting) Qty: 30 0RF lidocaine HCl [Lidocaine Viscous] 2 % solution 5 ml PO TIDPC MDD 15 mL PRN (Reason: dyspepsia) Qty: 300 0RF sucralfate [Carafate] 100 mg/mL suspension 10 ml PO TID Qty: 500 0RF Rx Instructions: swish in mouth and swallow; use after food/drink Eliquis 5 mg Tablet 5 mg PO QDAY sennosides-docusate sodium [Senokot-S] 8.6-50 mg tablet 2 tab-cap PO QDAY PRN (Reason: constipation) Qty: 20 0RF magnesium hydroxide [Milk Of Magnesia Concentrated] 2,400 mg/10 mL suspension 30 ml PO QDAY PRN (Reason: constipation) Qty: 60 0RF ascorbic acid (vitamin C) [Vitamin C] 500 mg tablet 500 mg PO QDAY alprazolam [Xanax] 0.5 mg tablet 0.5 mg PO TID PRN (Reason: anxiety) duloxetine [Cymbalta] 60 mg capsule,delayed release(DR/EC) 60 mg PO QDAY Qty: 30 0RF Discontinued duloxetine 60 mg capsule,delayed release(DR/EC) 60 mg PO QDAY Rx Instructions: Takes 80mg in the afternoon famotidine 20 mg tablet 20 mg PO BID Qty: 20 0RF acetaminophen-codeine 300-30 mg tablet 2 tab PO TID MDD 6 PRN (Reason: pain) Qty: 20 0RF cefdinir 300 mg capsule 300 mg PO BID Qty: 14 0RF sucralfate [Carafate] 100 mg/mL suspension 5 ml PO QID Qty: 420 0RF Rx Instructions: swish in mouth and swallow; use after food/drink Referrals: Tyrone Langford MD [Primary Care Provider] - Patient/Caregiver Discharge Instructions Education Materials: Esophagitis, What Is Irritable Bowel ..., IBS Diet Lifestyle, Understanding Gastritis, Diabetes: Living Your Life, Diabetes: Meal Planning, ED PEPTIC ULCER vs GASTRITIS Print Language: Slovenian Stand Alone Forms: [facility] Award Info., Patient Portal Info Letter Discharge Order Discharge Orders: Discharge (Routine); Ordered 02/14/25 Ordered By: Esme Mock Quality Discharge Quality Measures VTE prophylaxis
--- NOTE | 2025-02-15 00:04 | PD.IMPROG ---
Documentation for date of: 02/15/25 Subjective Subjective Interval history: Case discussed with internal medicine team Upper endoscopy showed gastritis and esophagitis okay to discharge patient home Exam Vital Signs Temp Pulse Resp BP Pulse Ox O2 Del Method O2 Flow Rate 97.6 F 85 18 95/65 94 L Room Air 2 02/14/25 12:00 02/14/25 12:00 02/14/25 12:00 02/14/25 12:00 02/14/25 12:00 02/14/25 12:00 02/13/25 21:00 Objective Labs 02/14/25 07:57 02/14/25 07:57 Labs: Laboratory Results - last 24 hr 02/14/25 07:57 WBC 9.6 RBC 3.18 L Hgb 8.3 L Hct 26.5 L MCV 83 MCH 26.1 MCHC 31.3 RDW Std Deviation 50.9 H Plt Count 368 D Neut % (Auto) 70 Lymph % (Auto) 17 [place] % (Auto) 11 Eos % (Auto) 1 Baso % (Auto) 0 Neut # (Auto) 6.7 Lymph # (Auto) 1.6 [place] # (Auto) 1.0 H Eos # (Auto) 0.1 Baso # (Auto) 0.0 Immature Gran # (Auto) 0.06 H Absolute Nucleated RBC 0.00 Immature Gran % 1 H Nucleated RBC % 0 Sodium 148 H Potassium 3.3 L Chloride 113 H Carbon Dioxide 21.9 Anion Gap 13 BUN 14 Creatinine 1.7 H Estim Creat Clear Calc 25.0 L eGFR 31 L BUN/Creatinine Ratio 8 L Glucose 135 H Calculated Osmolality 296 H Calcium 8.5 Corrected Calcium 8.7 Phosphorus 4.7 Magnesium 1.2 L Total Bilirubin 0.2 L AST 11 ALT 8 L Alkaline Phosphatase 59 Total Protein 6.7 Albumin 3.8 Globulin 2.9 Albumin/Globulin Ratio 1.3 Impressions Impression: Gastritis Nausea okay to be discharged on a PPI esophagitis Assessment & Plan A&P Narrative # Acute diverticulitis sigmoid Agree with continue with metronidazole and ciprofloxacin # Downtrending hemoglobin hematocrit with low iron level and FOBT positive and history of peptic ulcer disease Will schedule patient for fiberoptic esophagogastroduodenoscopy with possible biopsy possible therapeutic intervention under intravenous moderate sedation Scheduled for tomorrow Clear liquid diet N.p.o. midnight tonight Colonoscopy is contraindicated at the moment because of the acute sigmoid diverticulitis Which should be done in about 12 weeks postdischarge from the hospital I can see her as an outpatient # Chronic constipation Increase water intake More plant-based diet Continue stool softeners Other medical problems include Paroxysmal atrial fibrillation on apixaban essential hypertension Hypothyroidism Anxiety neurosis Depression GOOD/ATN nephrology on board Thank you very much for the opportunity to participate in the care of this patient Time Spent With Patient Time: Total time spent is greater than 50% in coordination of care (as documented) at patient's floor/unit and/or counseling patient:
== END 2025-02-14 12:04 | disposition home or self-care (01) | DRG 377 ==
LOC: SERX 15:08 → SERHOLD 16:23 → S3SX 02-06 06:21
PROVIDERS: Internal Medicine; Nurse Practitioner Family; Physician Assistant; Specialist; Admitting Provider Student in an Organized Health Care Education/Training Program; Emergency Provider Emergency Medicine; PCP Family Medicine; Visit Provider Student in an Organized Health Care Education/Training Program
PROC: 0DB48ZX Excision of Esophagogastric Junction, Via Natural or Artificial Opening Endoscopic, Diagnostic (ICD-10-PCS; CPT 43239; principal; 2025-02-13 19:00)
DX: K57.33 Diverticulitis of large intestine without perforation or abscess with bleeding (principal); K20.91 Esophagitis, unspecified with bleeding; N17.0 Acute kidney failure with tubular necrosis; K25.4 Chronic or unspecified gastric ulcer with hemorrhage; E03.9 Hypothyroidism, unspecified; F32.A Depression, unspecified; G47.30 Sleep apnea, unspecified; Z79.890 Hormone replacement therapy; F41.1 Generalized anxiety disorder; E11.9 Type 2 diabetes mellitus without complications; I48.0 Paroxysmal atrial fibrillation; Z90.710 Acquired absence of both cervix and uterus; I50.9 Heart failure, unspecified; I11.0 Hypertensive heart disease with heart failure; E73.9 Lactose intolerance, unspecified; Z87.11 Personal history of peptic ulcer disease; Z96.641 Presence of right artificial hip joint; D64.9 Anemia, unspecified; K29.70 Gastritis, unspecified, without bleeding; K52.9 Noninfective gastroenteritis and colitis, unspecified; Z79.84 Long term (current) use of oral hypoglycemic drugs; Z79.899 Other long term (current) drug therapy; Z79.01 Long term (current) use of anticoagulants; Z87.440 Personal history of urinary (tract) infections; Z88.0 Allergy status to penicillin; Z88.2 Allergy status to sulfonamides; Z88.5 Allergy status to narcotic agent; M85.80 Other specified disorders of bone density and structure, unspecified site; E61.1 Iron deficiency; E86.0 Dehydration; Z88.6 Allergy status to analgesic agent; Z88.8 Allergy status to other drugs, medicaments and biological substances
CPT/HCPCS: 36415; 71045; 74176; 80053; 80069; 81001; 82270; 82570; 82607; 82746; 83036; 83540; 83550; 83605; 83690; 83735; 84100; 84156; 84300; 84484; 85014; 85018; 85025; 85046; 85610; 85730; 87040; 87338; 93005; 93225; 93306; 96365; 96366; 96368; 96375; 96376; 99285; J0360; J0744; J1171; J1200; J1815; J2250; J2470; J2765; J3010; J3475; J3490; J7030; J7042; J7120; Q0164; A9270; J1836; J1920

== ENCOUNTER 2025-02-18 06:22 | Emergency (ER) | payer MEDICARE, BC, SELFPAY ==
[2025-02-18 06:26] VITALS: BP 200/81; PULSE 81; RESP 18; TEMP 36.6; O2SAT 96
[2025-02-18 06:52] LABS: Collection Type, Urine Clean Catch; RBC,Urine 0 /hpf (0-3); WBC,Urine 0 /hpf (0-5)
[2025-02-18 06:54] LABS: Basophils # (Auto) 0.1 Thou/mm3 (0.0-0.2); Basophils % (Auto) 1 % (0-2.5); Eosinophils # (Auto) 0.2 Thou/mm3 (0.0-0.5); Eosinophils % (Auto) 2 % (0-10); Hematocrit 27.2 % (36.0-46.0); Immature Granulocytes Auto 0.02 Thou/mm3 (0.00-0.00); Lymphocytes # (Auto) 2.1 Thou/mm3 (1.0-4.8); Lymphocytes % (Auto) 26 % (10-50); Mean Corpuscular HGB Conc 32.4 g/dl (31.0-37.0); Mean Corpuscular Hemoglobin 25.9 pg (25.0-35.0); Mean Corpuscular Volume 80 fL (80-100); Monocytes # (Auto) 0.8 Thou/mm3 (0.0-0.8); Monocytes % (Auto) 9 % (0-12); Neutrophils # (Auto) 5.1 Thou/mm3 (1.8-7.7); Neutrophils % (Auto) 62 % (37-80); Nucleated Red Blood Cell # 0.00 Thou/mm3 (0.00-0.00); Nucleated Red Blood Cell % 0 /100 WBC (0); Platelet Count 395 Thou/mm3 (140-440); RDW Standard Deviation 47.9 fL (36.4-46.3); Red Blood Count 3.40 Miln/mm3 (4.00-5.20); White Blood Count 8.2 Thou/mm3 (3.6-11.0)
[2025-02-18 06:55] LABS: Hemoglobin 8.8 g/dL (12.0-16.0)
--- NOTE | 2025-02-18 06:59 | PD.EDRME ---
Rapid Medical Screening Exam RME Arrival date/time: 02/18/25 06:22 79-year-old female presents to the Emergency Department today for complaint of lower abdominal pain and diarrhea patient reports recent admission to the hospital Chief Complaint: Abdominal Pain Vital signs: Vital Signs Temperature 97.9 F 02/18/25 06:26 Pulse Rate 81 02/18/25 06:26 Respiratory Rate 18 02/18/25 06:26 Blood Pressure 200/81 H 02/18/25 06:26 Pulse Oximetry (%) 96 02/18/25 06:26 Oxygen Delivery Method Room Air 02/18/25 06:26
[2025-02-18 07:00] LABS: Bacteria,Urine Rare; Bilirubin,Urine Negative (Negative); Blood,Urine Negative (Negative); Clarity,Urine Clear (Clear/Hazy); Color,Urine Lt-Yellow (Lt Yel-Yel); Culture Indicated,Urine Not Indicated; Glucose, Urine Negative (Negative); Ketones,Urine Negative (Negative); Leukocyte Esterase,Urine Negative (Negative); Nitrite,Urine Negative (Negative); PH,Urine 6.5 (5.0-7.0); Protein,Urine Negative (Neg - Trace); Specific Gravity,Urine 1.008 (1.001-1.035); Squamous Epithelial Cell,Urine 2 /hpf (0-5); Urobilinogen,Urine Negative mg/dL (0.0-1.0)
[2025-02-18 07:17] LABS: Alanine Aminotransferase < 7 U/L (10-49); Albumin, Serum 4.5 gm/dL (3.4-4.8); Albumin/Globulin Ratio 1.5 (1.2-2.2); Alkaline Phosphatase 72 U/L (46-116); Anion Gap 13 (7-16); Aspartate Amino Transferase < 10 U/L (0-34); BUN/Creatinine Ratio 9 Ratio (12-20); Bilirubin,Total 0.2 mg/dL (0.3-1.2); Blood Urea Nitrogen 14 mg/dL (9-23); Calcium 9.5 mg/dL (8.3-10.6); Calcium (Corrected) 9.5 mg/dL (8.5-10.1); Carbon Dioxide 27.1 mMol/L (20.0-31.0); Chloride 104 mMol/L (98-107); Creatinine (Component) 1.5 mg/dL (0.6-1.3); Globulin 3.1 gm/dL (2.3-3.5); Glucose 143 mg/dL (74-106); Lipase 35 U/L (12-53); Osmolality,Calculated 289 (275-295); Potassium 3.8 mMol/L (3.4-5.1); Sodium 144 mMol/L (136-145); Total Protein 7.6 gm/dL (5.7-8.2); eGFR 35 See Note
--- NOTE | 2025-02-18 09:13 | PC.NURSE ---
PATIENT SIGNED OUT AMA
== END 2025-02-18 09:18 | disposition left against medical advice (07) ==
LOC: SERX 06:46
PROVIDERS: Nurse Practitioner Primary Care; Emergency Provider Family Medicine; PCP Family Medicine
DX: R10.30 Lower abdominal pain, unspecified (principal); R19.7 Diarrhea, unspecified; Z53.29 Procedure and treatment not carried out because of patient's decision for other reasons
CPT/HCPCS: 36415; 80053; 81001; 83690; 85025; 87015; 87045; 87046; 87205; 87493; 87899; 99284

== ENCOUNTER 2025-02-18 11:42 | Emergency (ER) | payer MEDICARE, BC, SELFPAY ==
[2025-02-18 11:51] VITALS: BP 171/83; PULSE 86; RESP 17; TEMP 36.6; O2SAT 96; BMI 27.4
--- NOTE | 2025-02-18 12:17 | PD.EDRME ---
Rapid Medical Screening Exam E Arrival date/time: 02/18/25 11:42 79 yr old female presents for complaints of diarrhea patient was seen earlier today Chief Complaint: Nausea/Vomiting/Diarrhea Vital signs: Vital Signs Temperature 97.9 F 02/18/25 11:51 Pulse Rate 86 02/18/25 11:51 Respiratory Rate 17 02/18/25 11:51 Blood Pressure 171/83 H 02/18/25 11:51 Pulse Oximetry (%) 96 02/18/25 11:51 Oxygen Delivery Method Room Air 02/18/25 11:51
== END 2025-02-18 13:53 | disposition left against medical advice (07) ==
LOC: SERX 13:30
PROVIDERS: Emergency Provider Family Medicine; PCP Family Medicine
DX: R11.2 Nausea with vomiting, unspecified (principal); R19.7 Diarrhea, unspecified; Z53.29 Procedure and treatment not carried out because of patient's decision for other reasons
CPT/HCPCS: 87015; 87045; 87046; 87205; 87493; 87899; 99283

== ENCOUNTER 2025-02-19 06:22 | Emergency (ER) | payer MEDICARE, BC, SELFPAY ==
[2025-02-19 06:24] VITALS: PULSE 84
[2025-02-19 06:28] VITALS: BP 189/93; PULSE 108; RESP 18; TEMP 36.5; O2SAT 95
--- NOTE | 2025-02-19 06:45 | PD.EDRME ---
Rapid Medical Screening Exam RME Arrival date/time: 02/19/25 06:22 This is a 79-year-old female that comes into the emergency room with complaints of abdominal pain. Patient has a history of for A-fib (on Eliquis), hypothyroidism HTN, DM2, IBS, duodenal ulcer, sleep apnea and diverticulosis. Patient was recently admitted and discharged from the hospital for abdominal pain. Patient was admitted from 02/05/2025 to 02/15/2025. Patient does come to the emergency room a lot. Patient reports that she has diarrhea. Patient reports she lives by herself. I have greeted and performed a focused initial assessment of this patient. Initial appropriate labs ordered at this time. A comprehensive ED assessment and evaluation of the patient and analysis of all test and completion of medical decision making process will be conducted by additional ED provider. Chief Complaint: Abdominal Pain Time Seen by Provider: 02/19/25 06:33 Vital signs: Vital Signs Temperature 97.7 F 02/19/25 06:28 Pulse Rate 108 H 02/19/25 06:28 Respiratory Rate 18 02/19/25 06:28 Blood Pressure 189/93 H 02/19/25 06:28 Pulse Oximetry (%) 95 02/19/25 06:28 Oxygen Delivery Method Room Air 02/19/25 06:28
[2025-02-19 07:16] LABS: Basophils # (Auto) 0.0 Thou/mm3 (0.0-0.2); Basophils % (Auto) 0 % (0-2.5); Eosinophils # (Auto) 0.1 Thou/mm3 (0.0-0.5); Eosinophils % (Auto) 1 % (0-10); Hematocrit 27.8 % (36.0-46.0); Hemoglobin 9.1 g/dL (12.0-16.0); Immature Granulocytes Auto 0.02 Thou/mm3 (0.00-0.00); Lymphocytes # (Auto) 1.3 Thou/mm3 (1.0-4.8); Lymphocytes % (Auto) 16 % (10-50); Mean Corpuscular HGB Conc 32.7 g/dl (31.0-37.0); Mean Corpuscular Hemoglobin 26.1 pg (25.0-35.0); Mean Corpuscular Volume 80 fL (80-100); Monocytes # (Auto) 0.6 Thou/mm3 (0.0-0.8); Monocytes % (Auto) 8 % (0-12); Neutrophils # (Auto) 5.9 Thou/mm3 (1.8-7.7); Neutrophils % (Auto) 74 % (37-80); Nucleated Red Blood Cell # 0.00 Thou/mm3 (0.00-0.00); Nucleated Red Blood Cell % 0 /100 WBC (0); Platelet Count 426 Thou/mm3 (140-440); RDW Standard Deviation 48.1 fL (36.4-46.3); Red Blood Count 3.48 Miln/mm3 (4.00-5.20); White Blood Count 7.9 Thou/mm3 (3.6-11.0)
[2025-02-19 07:52] LABS: Alanine Aminotransferase 10 U/L (10-49); Albumin, Serum 4.5 gm/dL (3.4-4.8); Albumin/Globulin Ratio 1.3 (1.2-2.2); Alkaline Phosphatase 67 U/L (46-116); Anion Gap 11 (7-16); Aspartate Amino Transferase 14 U/L (0-34); BUN/Creatinine Ratio 9 Ratio (12-20); Bilirubin,Total 0.3 mg/dL (0.3-1.2); Blood Urea Nitrogen 13 mg/dL (9-23); Calcium 9.3 mg/dL (8.3-10.6); Calcium (Corrected) 9.3 mg/dL (8.5-10.1); Carbon Dioxide 26.7 mMol/L (20.0-31.0); Chloride 104 mMol/L (98-107); Creatinine (Component) 1.4 mg/dL (0.6-1.3); Globulin 3.4 gm/dL (2.3-3.5); Glucose 146 mg/dL (74-106); Lipase 24 U/L (12-53); Osmolality,Calculated 286 (275-295); Potassium 3.6 mMol/L (3.4-5.1); Sodium 142 mMol/L (136-145); Total Protein 7.9 gm/dL (5.7-8.2); eGFR 39 See Note
[2025-02-19 08:29] LABS: Collection Type, Urine Voided; RBC,Urine 0 /hpf (0-3); WBC,Urine 0 /hpf (0-5)
[2025-02-19 08:48] LABS: Bacteria,Urine Rare; Bilirubin,Urine Negative (Negative); Blood,Urine Negative (Negative); Clarity,Urine Clear (Clear/Hazy); Color,Urine Lt-Yellow (Lt Yel-Yel); Culture Indicated,Urine Not Indicated; Glucose, Urine Negative (Negative); Ketones,Urine Negative (Negative); Leukocyte Esterase,Urine Negative (Negative); Nitrite,Urine Negative (Negative); PH,Urine 7.0 (5.0-7.0); Protein,Urine Negative (Neg - Trace); Specific Gravity,Urine 1.008 (1.001-1.035); Squamous Epithelial Cell,Urine 2 /hpf (0-5); Urobilinogen,Urine Negative mg/dL (0.0-1.0)
[2025-02-19 11:09] VITALS: BP 186/90; PULSE 62; RESP 18; TEMP 36.5; O2SAT 96
--- NOTE | 2025-02-19 11:42 | PC.CC ---
Paperhanger Pipe, Priscilla received a referral from Ese GIMENEZ regarding multiple ED visits for similar reason. CC met with patient [id number]. Patient appeared alert and oriented to self, place and situation. Patient was pleasant, her mood was anxious and behavior was ordinary. Patient reported that she was discharged home on 02/15/2025. Patient reported that she remains independent with ADLs. Patient reported that she has a caregiver Thursday through Thursday for 7-hours. Patient reported that she has been coming in to ED after speaking to her PCP, Dr. Langford and recommended that she come and be evaluated for CDIFF since she has had several episodes of diarrhea. Patient reported that she feels comfortable returning home and one of her friends will provide support. Patient is aware that she will follow-up with Dr. Langford to review her kindey levels. SW offered SNF placement for support or home health services. Patient declined both and resintated that she is just here to get tested for CDIFF. Discharge plan: patient will return home. SANDI updated Ese GIMENEZ.
--- NOTE | 2025-02-19 12:16 | PD.EDABDPN ---
ED Abdominal Pain RME/HPI General Chief Complaint: Abdominal Pain Stated complaint: ABD PAIN, N/V/D Time seen by provider: 02/19/25 06:33 Arrival date/time: 02/19/25 06:22 Limitations: no limitations RME / HPI RME / HPI narrative: 02/19/25 06:22 This is a 79-year-old female that comes into the emergency room with complaints of abdominal pain. Patient has a history of for A-fib (on Eliquis), hypothyroidism HTN, DM2, IBS, duodenal ulcer, sleep apnea and diverticulosis. Patient was recently admitted and discharged from the hospital for abdominal pain. Patient was admitted from 02/05/2025 to 02/15/2025. Patient does come to the emergency room a lot. Patient reports that she has diarrhea. Patient reports she lives by herself. I have greeted and performed a focused initial assessment of this patient. Initial appropriate labs ordered at this time. A comprehensive ED assessment and evaluation of the patient and analysis of all test and completion of medical decision making process will be conducted by additional ED provider. DR. SUKUMAR HORN ED EVALUATION: 79 year old female with history of atrial fibrillation on Eliquis, hypertension, diabetes, hypothyroidism IBS, duodenal ulcer, diverticulosis and recently admitted 02/05/2025 through 02/14/2025 for diverticulosis requiring IV antibiotics presents to the ED BIBA from home for evaluation of nonbloody diarrhea today. Reports during her admission she was treated with multiple antibiotics and since arriving home 5 days ago she has had diarrhea. Accompanied by abdominal pain described as cramping in sensation. States she has taken Imodium at home that provides temporary relief. While in the ED expressed concerns of possibly having C.Diff and is requesting stool to be tested. No other associated symptoms or complaints reported. Patient mentioned she has a caregiver at home M-F. GI: Dr. Osuna Related Data Home Medications ?Medication ?Instructions ?Recorded ?Confirmed Bifidobacterium infantis 4 mg 4 mg PO DAILY 06/27/23 02/05/25 capsule (Align (B.infantis)) acetaminophen 500 mg tablet 500 mg PO PRN PRN Pain 06/27/23 02/05/25 cholecalciferol (vitamin D3) 25 25 mcg PO 1XD 06/27/23 02/05/25 mcg (1,000 unit) tablet (Vitamin D3) levothyroxine 50 mcg tablet 50 mcg PO DAILY 06/27/23 02/05/25 metformin 500 mg tablet 500 mg PO DAILY 06/27/23 02/05/25 alprazolam 0.5 mg tablet 0.5 mg PO BID PRN Anxiety 10/28/23 02/05/25 benazepril 20 mg tablet 20 mg PO QDAY 10/28/23 02/05/25 loperamide 2 mg capsule 2 mg PO QDAY 10/28/23 02/06/25 pantoprazole 40 mg tablet,delayed 40 mg PO BID 10/28/23 02/05/25 release apixaban 5 mg tablet (Eliquis) 5 mg PO QDAY 06/11/24 02/05/25 alprazolam 0.5 mg tablet (Xanax) 0.5 mg PO TID PRN anxiety 02/05/25 02/05/25 ascorbic acid (vitamin C) 500 mg 500 mg PO QDAY 02/05/25 02/05/25 tablet (Vitamin C) Previous Rx's ?Medication ?Instructions ?Recorded ondansetron 4 mg disintegrating 4 mg PO Q8H PRN nausea and 02/22/24 tablet vomiting #30 tabs lidocaine HCl 2 % mucosal solution 5 ml PO TIDPC PRN dyspepsia #300 mL 07/02/24 (Lidocaine Viscous) sucralfate 100 mg/mL oral 10 ml PO TID #500 mL 07/02/24 suspension (Carafate) magnesium hydroxide 2,400 mg/10 mL 30 ml PO QDAY PRN constipation #60 01/22/25 oral suspension (Milk Of Magnesia mL Concentrated) sennosides 8.6 mg-docusate sodium 2 tab-cap (2 x 8.6-50 mg) PO QDAY 01/22/25 50 mg tablet (Senokot-S) PRN constipation #20 tabs duloxetine 60 mg capsule,delayed 60 mg PO QDAY #30 caps 02/14/25 release (Cymbalta) ferrous sulfate 325 mg (65 mg 325 mg PO QOD #30 tabs 02/14/25 iron) tablet,delayed release Allergies Allergy/AdvReac Type Severity Reaction Status Date / Time amoxicillin (From Augmentin) Allergy Severe Hives Verified 02/19/25 06:24 aspirin Allergy Severe Abdominal Verified 02/19/25 06:24 Pain ciprofloxacin (From Cipro) Allergy Severe Gastrointestinal Verified 02/19/25 06:24 Upset clavulanic acid (From Allergy Severe Hives Verified 02/19/25 06:24 Augmentin) codeine Allergy Severe Nausea Verified 02/19/25 06:24 fluconazole Allergy Severe Rash Verified 02/19/25 06:24 gabapentin Allergy Severe Abdominal Verified 02/19/25 06:24 Pain ketorolac (From Toradol) Allergy Severe Abdominal Verified 02/19/25 06:24 Pain nalbuphine Allergy Severe Abdominal Verified 02/19/25 06:24 Pain Sulfa (Sulfonamide Allergy Severe Hives Verified 02/19/25 06:24 Antibiotics) tizanidine Allergy Severe Rash Verified 02/19/25 06:24 tramadol Allergy Severe Rash Verified 02/18/25 11:44 Review of Systems Review of Systems Systems Reviewed: All systems reviewed, normal except as documented Past Medical History Past Medical History NEUROLOGIC: Negative Neurological Disorders or Seizures CARDIAC: Positive Cardiac Disorders, Cardiac Arrhythmia, Atrial Fibrillation, Hypercholesterolemia and Hypertension; Negative Congestive Heart Failure RESPIRATORY: Positive Asthma, Pneumonia and Sleep Apnea; Negative Chronic Obstructive Pulmonary Disease (COPD) GASTROINTESTINAL: Positive Gastrointestinal Disorders, Gastrointestinal Bleed, Colitis, Ulcerative Colitis, Diverticulitis, Diverticulosis, Ulcer, Irritable Bowel, Obstructive Bowel, Hemorrhoids and Obesity GENITOURINARY: Positive Kidney Stones; Negative Genitourinary Disorders or Renal Disease REPRODUCTIVE: Positive Previous Pregnancies MUSCULOSKELETAL: Positive Musculoskeletal Disorders and Arthritis ENT: Positive Cataracts and Ear Infection ENDOCRINE: Positive Diabetes Mellitus Type 2 and Hypothyroidism; Negative Diabetes Mellitus Type 1 HEMATOLOGIC: Negative Blood Disorders or Sickle Cell Disease PSYCHO/SOCIAL: Positive Anxiety OTHER HISTORY: Positive Falls, Blood Transfusions, Chicken Pox, Mumps and Clostridium Difficile; Negative Blood Transfusion Reaction, Anesthesia Reactions or Cancer Family History FAMILY HISTORY: Positive Family Cardiac Disorders; Negative Family Respiratory Disorders Surgical History SURGICAL: Positive Cardiac Surgery, Endocrine Surgery, Thyroidectomy, Abdominal Surgery, Joint Replacement, Hysterectomy and Section Social History SMOKING STATUS: Never smoker SUBSTANCE USE: does not use ED Exam General Limitations: Present no limitations General appearance: Present alert and in no apparent distress Head Head exam: Present atraumatic, normocephalic and normal inspection Eye Eye exam: Present normal appearance, PERRL and EOMI ENT ENT exam: Present normal exam, normal oropharynx and mucous membranes moist Neck Neck exam: Present normal inspection, full ROM and trachea midline Chest Chest inspection: Present normal inspection and symmetric chest wall rise Respiratory Respiratory exam: Present normal lung sounds bilaterally Cardiovascular Cardiovascular exam: Present regular rate, normal rhythm and normal heart sounds Abdominal Exam Abdominal exam: Present soft and normal bowel sounds Extremities Exam Extremities exam: Present normal inspection and full ROM Back Exam Back exam: Present normal inspection and full ROM Neurological Exam Neurological exam: Present alert, oriented X3 and CN II-XII intact Psychiatric Psychiatric exam: Present normal affect and normal mood Skin Skin exam: Present warm, dry, intact and normal color Course Quality Measures none Orders Category Date Time Status Consult Trichologist NOW Care 02/19/25 06:45 Active CBC Stat Lab 02/19/25 07:10 Completed Comprehensive Metabolic Panel Stat Lab 02/19/25 07:10 Completed Lipase Stat Lab 02/19/25 07:10 Completed Urinalysis, C/S if Indicated Stat Lab 02/19/25 07:47 Completed c diff [Clostridium Difficile PCR] Stat Lab 02/19/25 Ordered HYDROcodone*/APAP 5/325 [[place] 5/325] Med 02/19/25 11:47 Discontinued 1 tab PO X1 ONE Ondansetron Odt [Zofran Odt] Med 02/19/25 11:47 Discontinued 4 mg PO X1 ONE Reevaluation(s) Reevaluation #1: Patient made aware the stool sample she provided earlier was contaminated with urine. She was made aware a new stool sample would need to be provided to be tested for C. diff. The patient states she does not want to wait to provide a second stool sample and would prefer to follow up with her PCP Dr. Langford. Time: 12:20 Vital Signs Vital signs: Vital Signs Temperature 97.7 F 02/19/25 06:28 Pulse Rate 108 H 02/19/25 06:28 Respiratory Rate 18 02/19/25 06:28 Blood Pressure 189/93 H 02/19/25 06:28 Pulse Oximetry (%) 95 02/19/25 06:28 Oxygen Delivery Method Room Air 02/19/25 06:28 Pulse ox is 95% on room air which is adequate. Abdominal Pain MDM MDM Narrative MDM Narrative:: IMckenzie, am scribing for and in the presence of Dr. Argueta. 1215: I spoke with manager social responsibility Salena. States she has met with the patient in the ED and reported the patient was only requesting to be evaluated for C diff. Patient data External records reviewed:: [facility] previous records (I reviewed admission from 02/05/2025 through 02/14/2025 for diverticulitis requiring IV therapy ) Clinical information provided by:: patient Social determinants that could affect healthcare access:: mental health (Anxiety ) Patient has the following chronic illnesses:: Atrial fibrillation on Eliquis, hypertension, diabetes, hypothyroidism, IBS, duodenal ulcer, diverticulosis How is presenting disease/condition affected by chronic disease/condition?: exacerbated by Evaluation data The following diagnostics were reviewed and interpreted by me:: lab results Lab and/or radiology exams considered but not ordered:: None Interpretation Summary: No leukocystosis, H/H chronically low, CMP unremarkable, UA negative for infection. Medications / Prescriptions Medications or Prescriptions considered but not ordered:: None Medication administrations:: Medication Administration History Discontinued Medications Hydrocodone Bitart/Acetaminophen (Hydrocodone/Apap 5/325 Tablet) 1 tab PO X1 ONE Stop: 02/19/25 11:48 Last Admin: 02/19/25 12:24 Dose: 1 tab Documented By: SANDRA Ondansetron HCl (Ondansetron Odt 4 Mg Tabrap) 4 mg PO X1 ONE; Protocol Stop: 02/19/25 11:48 Last Admin: 02/19/25 12:25 Dose: 4 mg Documented By: SANDRA See above Consultations Consultation(s) initiated? (list below): No Diagnosis Differential diagnosis abdominal pain: abdominal pain, diverticulitis and other (Diarrhea ) Most likely diagnosis given after review of the tests above:: Diarrhea Admission Indicated Admission indicated?: not indicated Admission Request Was there a request for admission?: No Disposition Plan Disposition Plan: Discharge Discharge Attestation Discharge Attestation: The patient and all family members were given an opportunity to ask questions and understood the discharge instructions. Discharge instructions specifically effects, indications for sooner follow up or return to the emergency department, and the expected course of current diagnosis. Patient condition: Stable Discharge Plan Plan Patient Disposition: HOME (Self Care) Discharge Disposition comment: Stable for discharge home Patient condition on transfer: Stable Prescriptions/Referrals Prescriptions/Med Rec: No Action metformin 500 mg Tablet 500 mg PO DAILY acetaminophen 500 mg Tablet 500 mg PO PRN MDD 4 PRN (Reason: Pain) levothyroxine 50 mcg Tablet 50 mcg PO DAILY cholecalciferol (vitamin D3) [Vitamin D3] 25 mcg (1,000 unit) Tablet 25 mcg PO 1XD Align (B.infantis) 4 mg Capsule 4 mg PO DAILY loperamide 2 mg capsule 2 mg PO QDAY alprazolam 0.5 mg tablet 0.5 mg PO BID PRN (Reason: Anxiety) Patient Comments: TAKE 1 TABLET BY MOUTH THREE TIMES DAILY NEEDED FOR ANXIETY pantoprazole 40 mg tablet,delayed release (DR/EC) 40 mg PO BID Patient Comments: TAKE 1 TABLET BY MOUTH DAILY benazepril 20 mg tablet 20 mg PO QDAY ondansetron 4 mg tablet,disintegrating 4 mg PO Q8H PRN (Reason: nausea and vomiting) Qty: 30 0RF lidocaine HCl [Lidocaine Viscous] 2 % solution 5 ml PO TIDPC MDD 15 mL PRN (Reason: dyspepsia) Qty: 300 0RF sucralfate [Carafate] 100 mg/mL suspension 10 ml PO TID Qty: 500 0RF Rx Instructions: swish in mouth and swallow; use after food/drink Eliquis 5 mg Tablet 5 mg PO QDAY sennosides-docusate sodium [Senokot-S] 8.6-50 mg tablet 2 tab-cap PO QDAY PRN (Reason: constipation) Qty: 20 0RF magnesium hydroxide [Milk Of Magnesia Concentrated] 2,400 mg/10 mL suspension 30 ml PO QDAY PRN (Reason: constipation) Qty: 60 0RF ascorbic acid (vitamin C) [Vitamin C] 500 mg tablet 500 mg PO QDAY alprazolam [Xanax] 0.5 mg tablet 0.5 mg PO TID PRN (Reason: anxiety) duloxetine [Cymbalta] 60 mg capsule,delayed release(DR/EC) 60 mg PO QDAY Qty: 30 0RF ferrous sulfate 325 mg (65 mg iron) Tablet,Delayed Release (Dr/Ec) 325 mg PO QOD Qty: 30 0RF Referrals: Tyrone Langford MD [Primary Care Provider] - In 1 week Problem List Clinical Impression: Diarrhea Patient/Caregiver Discharge Instructions Discharge Activity: activity as tolerated Education Materials: ED Diarrhea, Unknown Cause Additional Instructions: Please return to the emergency department if you have any worsening or any further medical problems and we will help you. Otherwise you should follow-up with Dr. Langford within the next several days. Print Language: Georgian Stand Alone Forms: [employer] Award Info., Patient Portal Info Letter
[2025-02-19] MEDS: HYDROcodone/APAP 5/325 TABLET 1 TAB PO (12:24)
[2025-02-19] MEDS: ONDANSETRON ODT 4 MG TABRAP PO (12:25)
== END 2025-02-19 12:46 | disposition home or self-care (01) ==
PROVIDERS: Nurse Practitioner Family; Emergency Provider Emergency Medicine; PCP Family Medicine
DX: R19.7 Diarrhea, unspecified (principal); I48.91 Unspecified atrial fibrillation; I10 Essential (primary) hypertension; E11.9 Type 2 diabetes mellitus without complications; K58.9 Irritable bowel syndrome, unspecified
CPT/HCPCS: 36415; 80053; 81001; 83690; 85025; 87493; 99283; Q0162; A9270

== ENCOUNTER 2025-02-25 16:03 | Emergency (ER) | payer MEDICARE, BC, SELFPAY ==
[2025-02-25 16:21] VITALS: BP 184/91; PULSE 99; RESP 17; TEMP 36.4; O2SAT 95; BMI 30.8
--- NOTE | 2025-02-25 16:45 | PD.EDABDPN ---
ED Abdominal Pain RME/HPI General Chief Complaint: Abdominal Pain Stated complaint: C-diff + and having abdominal pain Time seen by provider: 02/25/25 16:43 Arrival date/time: 02/25/25 16:03 This is a 71-year-old female with chronic abdominal pain chronic pain syndrome and C. diff history. She does report she received her C. diff sample was positive on the 23 of February. She has prescribed medication she states she is having questions on how to take the vancomycin that was prescribed by her PCP. She is also requesting 1 tab of [place] for her painPatient denies any nausea no lethargy no decreased appetite, no fever. Source: patient Related Data Home Medications ?Medication ?Instructions ?Recorded ?Confirmed Bifidobacterium infantis 4 mg 4 mg PO DAILY 06/27/23 02/05/25 capsule (Align (B.infantis)) acetaminophen 500 mg tablet 500 mg PO PRN PRN Pain 06/27/23 02/05/25 cholecalciferol (vitamin D3) 25 25 mcg PO 1XD 06/27/23 02/05/25 mcg (1,000 unit) tablet (Vitamin D3) levothyroxine 50 mcg tablet 50 mcg PO DAILY 06/27/23 02/05/25 metformin 500 mg tablet 500 mg PO DAILY 06/27/23 02/05/25 alprazolam 0.5 mg tablet 0.5 mg PO BID PRN Anxiety 10/28/23 02/05/25 benazepril 20 mg tablet 20 mg PO QDAY 10/28/23 02/05/25 loperamide 2 mg capsule 2 mg PO QDAY 10/28/23 02/06/25 pantoprazole 40 mg tablet,delayed 40 mg PO BID 10/28/23 02/05/25 release apixaban 5 mg tablet (Eliquis) 5 mg PO QDAY 06/11/24 02/05/25 alprazolam 0.5 mg tablet (Xanax) 0.5 mg PO TID PRN anxiety 02/05/25 02/05/25 ascorbic acid (vitamin C) 500 mg 500 mg PO QDAY 02/05/25 02/05/25 tablet (Vitamin C) Previous Rx's ?Medication ?Instructions ?Recorded ondansetron 4 mg disintegrating 4 mg PO Q8H PRN nausea and 02/22/24 tablet vomiting #30 tabs lidocaine HCl 2 % mucosal solution 5 ml PO TIDPC PRN dyspepsia #300 mL 07/02/24 (Lidocaine Viscous) sucralfate 100 mg/mL oral 10 ml PO TID #500 mL 07/02/24 suspension (Carafate) magnesium hydroxide 2,400 mg/10 mL 30 ml PO QDAY PRN constipation #60 01/22/25 oral suspension (Milk Of Magnesia mL Concentrated) sennosides 8.6 mg-docusate sodium 2 tab-cap (2 x 8.6-50 mg) PO QDAY 01/22/25 50 mg tablet (Senokot-S) PRN constipation #20 tabs duloxetine 60 mg capsule,delayed 60 mg PO QDAY #30 caps 02/14/25 release (Cymbalta) ferrous sulfate 325 mg (65 mg 325 mg PO QOD #30 tabs 02/14/25 iron) tablet,delayed release ondansetron 4 mg disintegrating 4 mg PO Q8H PRN nausea and 02/26/25 tablet vomiting #10 tabs polyethylene glycol 3350 17 4 g PO QDAY #510 grams 02/26/25 gram/dose oral powder (Miralax) Allergies Allergy/AdvReac Type Severity Reaction Status Date / Time amoxicillin (From Augmentin) Allergy Severe Hives Verified 02/27/25 06:29 aspirin Allergy Severe Abdominal Verified 02/27/25 06:29 Pain ciprofloxacin (From Cipro) Allergy Severe Gastrointestinal Verified 02/27/25 06:29 Upset clavulanic acid (From Allergy Severe Hives Verified 02/27/25 06:29 Augmentin) codeine Allergy Severe Nausea Verified 02/27/25 06:29 fluconazole Allergy Severe Rash Verified 02/27/25 06:29 gabapentin Allergy Severe Abdominal Verified 02/27/25 06:29 Pain ketorolac (From Toradol) Allergy Severe Abdominal Verified 02/27/25 06:29 Pain nalbuphine Allergy Severe Abdominal Verified 02/27/25 06:29 Pain Sulfa (Sulfonamide Allergy Severe Hives Verified 02/27/25 06:29 Antibiotics) tizanidine Allergy Severe Rash Verified 02/27/25 06:29 tramadol Allergy Severe Rash Verified 02/27/25 06:29 Review of Systems Review of Systems Systems Reviewed: All systems reviewed, normal except as documented Narrative Review of Systems: Gen: No fever, no chills, no weight loss EYES: No discharge, no visual changes, no pain HEENT: No ear pain, no congestion, no sore throat PULM: No shortness of breath, no cough, no congestion CV: No chest pain, no dyspnea on exertion, no palpitations GI: No nausea, no vomiting, no diarrhea, no pain, no constipation : No frequency, no urgency,? no dysuria Musc/skel: No joint pain, no back pain Skin: No rash? Psyc: No hallucinations, no depression Heme/Lymph: No easy bleeding or bruising tendencies Neuro: No weakness, no headache ED Exam Narrative Physical exam: General: Sittiing in Exam table in no acute distress, answering questions appropriately HENT: normocephalic, atraumatic, EOMI, PERRLA, moist mucous membranes Chest: chest wall is nontender Cardiac: regular rate and rhythm, normal S1 and S2, no murmurs, rubs, or gallops, capillary refill ?2 seconds Pulmonary: clear to auscultation bilaterally, no wheezing, crackles, or rhonchi Abdominal: active bowel sounds, soft, nontender, nondistended Neuro: A&OX3, CN II-XII intact, sensation grossly intact bilaterally in UE and LE. Skin: no rashes, no ecchymosis Ext: no lower extremity edema Course Quality Measures none Orders Category Date Time Status HYDROcodone*/APAP 5/325 [[place] 5/325] Med 02/25/25 16:43 Discontinued 1 tab PO X1 ONE Vital Signs Vital signs: Vital Signs Temperature 97.6 F 02/25/25 16:21 Pulse Rate 99 02/25/25 16:21 Respiratory Rate 17 02/25/25 16:21 Blood Pressure 184/91 H 02/25/25 16:21 Pulse Oximetry (%) 95 02/25/25 16:21 Oxygen Delivery Method Room Air 02/25/25 16:21 Abdominal Pain MDM MDM Narrative MDM Narrative:: Patient educated on C diff, medication administration. No acute distress nausea vomiting abdominal pain. Advised to keep her appointment with her PCP on Thursday. Advised to return to the emergency department with any worsening symptoms or conditions. Patient data External records reviewed:: [facility] previous records Clinical information provided by:: patient Social determinants that could affect healthcare access:: none Patient has the following chronic illnesses:: no How is presenting disease/condition affected by chronic disease/condition?: caused by Evaluation data The following diagnostics were reviewed and interpreted by me:: other (specify) Lab and/or radiology exams considered but not ordered:: Review the patient's C. diff labs she had in her hand ordered by her PCP no labs ordered here in ER today. Interpretation Summary: c-diff + Medications / Prescriptions Medications or Prescriptions considered but not ordered:: no Medication administrations:: Medication Administration History Discontinued Medications Hydrocodone Bitart/Acetaminophen (Hydrocodone/Apap 5/325 Tablet) 1 tab PO X1 ONE Stop: 02/25/25 16:44 Last Admin: 02/25/25 17:03 Dose: 1 tab Documented By: MF see above Consultations Consultation(s) initiated? (list below): No Diagnosis Differential diagnosis abdominal pain: abdominal pain, gastroenteritis and other (Chronic abdominal pain chronic syndrome.) Most likely diagnosis given after review of the tests above:: C diff infection Chronic Admission Indicated Admission indicated?: not indicated Admission Request Was there a request for admission?: No Disposition Plan Disposition Plan: Discharge Discharge Attestation Discharge Attestation: The patient and all family members were given an opportunity to ask questions and understood the discharge instructions. Discharge instructions specifically effects, indications for sooner follow up or return to the emergency department, and the expected course of current diagnosis. Patient condition: Stable Discharge Plan Plan Patient Disposition: HOME (Self Care) Patient condition on transfer: Stable Prescriptions/Referrals Prescriptions/Med Rec: No Action metformin 500 mg Tablet 500 mg PO DAILY acetaminophen 500 mg Tablet 500 mg PO PRN MDD 4 PRN (Reason: Pain) levothyroxine 50 mcg Tablet 50 mcg PO DAILY cholecalciferol (vitamin D3) [Vitamin D3] 25 mcg (1,000 unit) Tablet 25 mcg PO 1XD Align (B.infantis) 4 mg Capsule 4 mg PO DAILY loperamide 2 mg capsule 2 mg PO QDAY alprazolam 0.5 mg tablet 0.5 mg PO BID PRN (Reason: Anxiety) Patient Comments: TAKE 1 TABLET BY MOUTH THREE TIMES DAILY NEEDED FOR ANXIETY pantoprazole 40 mg tablet,delayed release (DR/EC) 40 mg PO BID Patient Comments: TAKE 1 TABLET BY MOUTH DAILY benazepril 20 mg tablet 20 mg PO QDAY ondansetron 4 mg tablet,disintegrating 4 mg PO Q8H PRN (Reason: nausea and vomiting) Qty: 30 0RF lidocaine HCl [Lidocaine Viscous] 2 % solution 5 ml PO TIDPC MDD 15 mL PRN (Reason: dyspepsia) Qty: 300 0RF sucralfate [Carafate] 100 mg/mL suspension 10 ml PO TID Qty: 500 0RF Rx Instructions: swish in mouth and swallow; use after food/drink ondansetron 4 mg tablet,disintegrating 4 mg PO Q8H PRN (Reason: nausea and vomiting) Qty: 10 0RF Eliquis 5 mg Tablet 5 mg PO QDAY sennosides-docusate sodium [Senokot-S] 8.6-50 mg tablet 2 tab-cap PO QDAY PRN (Reason: constipation) Qty: 20 0RF magnesium hydroxide [Milk Of Magnesia Concentrated] 2,400 mg/10 mL suspension 30 ml PO QDAY PRN (Reason: constipation) Qty: 60 0RF ascorbic acid (vitamin C) [Vitamin C] 500 mg tablet 500 mg PO QDAY alprazolam [Xanax] 0.5 mg tablet 0.5 mg PO TID PRN (Reason: anxiety) duloxetine [Cymbalta] 60 mg capsule,delayed release(DR/EC) 60 mg PO QDAY Qty: 30 0RF ferrous sulfate 325 mg (65 mg iron) Tablet,Delayed Release (Dr/Ec) 325 mg PO QOD Qty: 30 0RF polyethylene glycol 3350 [Miralax] 17 gram/dose powder 4 g PO QDAY Qty: 510 0RF Referrals: No Primary/Family,Physician [Referring Provider] - In 1 week Problem List Clinical Impression: Clostridium difficile infection Patient/Caregiver Discharge Instructions Discharge Activity: activity as tolerated Education Materials: Abdominal Pain Additional Instructions: Please make sure you take your antibiotic as directed by your PCP. Return to the emergency department with any worsening symptoms and condition. Print Language: [place] Citizen Stand Alone Forms: [employer] Award Info., Patient Portal Info Letter PA/STEEL ANALYST Supervising Physician PA/STEEL ANALYST Supervising Physician: dr brandon
[2025-02-25] MEDS: HYDROcodone/APAP 5/325 TABLET 1 TAB PO (17:03)
== END 2025-02-25 17:04 | disposition home or self-care (01) ==
PROVIDERS: Emergency Provider Family Medicine; PCP Family Medicine
DX: A04.72 Enterocolitis due to Clostridium difficile, not specified as recurrent (principal)
CPT/HCPCS: 99283; A9270

== ENCOUNTER 2025-02-26 06:38 | Emergency (ER) | payer MEDICARE, BC, SELFPAY ==
[2025-02-26 06:42] VITALS: BP 134/69; PULSE 106; PULSE 90; RESP 17; TEMP 36.9; O2SAT 96; O2SAT 98; BMI 27.4
--- NOTE | 2025-02-26 06:58 | PD.EDRME ---
Rapid Medical Screening Exam RME Arrival date/time: 02/26/25 06:38 79 year old female with history of atrial fibrillation on Eliquis, hypertension, diabetes, hypothyroidism IBS, duodenal ulcer, diverticulosis and recently admitted 02/05/2025 through 02/14/2025 for diverticulosis requiring IV antibiotics presents to the ED BIBA from home for evaluation of her abdominal pain nausea and vomiting. Patient states she has been on multiple antibiotics as she was recently diagnosed with C. difficile and since taking her antibiotics her abdominal pain symptoms have progressively gotten worse. I have greeted and performed a focused initial assessment of this patient. A comprehensive ED assessment and evaluation of the patient, analysis of all test results, and completion of the medical decision making process will be conducted by additional ED providers. Chief Complaint: Abdominal Pain Time Seen by Provider: 02/26/25 06:51 Vital signs: Vital Signs Temperature 98.4 F 02/26/25 06:42 Pulse Rate 90 02/26/25 06:42 Respiratory Rate 17 02/26/25 06:42 Blood Pressure 134/69 H 02/26/25 06:42 Pulse Oximetry (%) 96 02/26/25 06:42 Oxygen Delivery Method Room Air 02/26/25 06:42 Vital signs reviewed by provider: Yes
[2025-02-26] MEDS: ONDANSETRON ODT 4 MG TABRAP PO (07:05)
--- NOTE | 2025-02-26 07:16 | PD.EDABDPN ---
ED Abdominal Pain RME/HPI General Chief Complaint: Abdominal Pain Stated complaint: ABDOMINAL Time seen by provider: 02/26/25 06:51 Arrival date/time: 02/26/25 06:38 Limitations: no limitations RME / HPI RME / HPI narrative: 02/26/25 06:38 79 year old female with history of atrial fibrillation on Eliquis, hypertension, diabetes, hypothyroidism IBS, duodenal ulcer, diverticulosis and recently admitted 02/05/2025 through 02/14/2025 for diverticulosis requiring IV antibiotics presents to the ED BIBA from home for evaluation of her abdominal pain nausea and vomiting. Patient states she has been on multiple antibiotics as she was recently diagnosed with C. difficile and since taking her antibiotics her abdominal pain symptoms have progressively gotten worse. I have greeted and performed a focused initial assessment of this patient. A comprehensive ED assessment and evaluation of the patient, analysis of all test results, and completion of the medical decision making process will be conducted by additional ED providers. DR. SUKUMAR HORN ED EVALUATION 79 year old female with history of atrial fibrillation on Eliquis, hypertension, diabetes, hypothyroidism IBS, duodenal ulcer, diverticulosis and recently admitted 02/05/2025 through 02/14/2025 for diverticulosis requiring IV antibiotics presents to the ED BIBA from home for complains of nausea, vomiting, and abdominal pain today. Has taken Zofran at home with minimal relief. Reports she was diagnosed with C. Diff 6 days ago by PCP and prescribed Vancomycin 125mg QID which she began yesterday. Additionally report she has had intermittent diarrhea since her hospitalization earlier this month. Denies fevers, chills, chest pain, or urinary symptoms. Related Data Home Medications ?Medication ?Instructions ?Recorded ?Confirmed Bifidobacterium infantis 4 mg 4 mg PO DAILY 06/27/23 02/05/25 capsule (Align (B.infantis)) acetaminophen 500 mg tablet 500 mg PO PRN PRN Pain 06/27/23 02/05/25 cholecalciferol (vitamin D3) 25 25 mcg PO 1XD 06/27/23 02/05/25 mcg (1,000 unit) tablet (Vitamin D3) levothyroxine 50 mcg tablet 50 mcg PO DAILY 06/27/23 02/05/25 metformin 500 mg tablet 500 mg PO DAILY 06/27/23 02/05/25 alprazolam 0.5 mg tablet 0.5 mg PO BID PRN Anxiety 10/28/23 02/05/25 benazepril 20 mg tablet 20 mg PO QDAY 10/28/23 02/05/25 loperamide 2 mg capsule 2 mg PO QDAY 10/28/23 02/06/25 pantoprazole 40 mg tablet,delayed 40 mg PO BID 10/28/23 02/05/25 release apixaban 5 mg tablet (Eliquis) 5 mg PO QDAY 06/11/24 02/05/25 alprazolam 0.5 mg tablet (Xanax) 0.5 mg PO TID PRN anxiety 02/05/25 02/05/25 ascorbic acid (vitamin C) 500 mg 500 mg PO QDAY 02/05/25 02/05/25 tablet (Vitamin C) Previous Rx's ?Medication ?Instructions ?Recorded ondansetron 4 mg disintegrating 4 mg PO Q8H PRN nausea and 02/22/24 tablet vomiting #30 tabs lidocaine HCl 2 % mucosal solution 5 ml PO TIDPC PRN dyspepsia #300 mL 07/02/24 (Lidocaine Viscous) sucralfate 100 mg/mL oral 10 ml PO TID #500 mL 07/02/24 suspension (Carafate) magnesium hydroxide 2,400 mg/10 mL 30 ml PO QDAY PRN constipation #60 01/22/25 oral suspension (Milk Of Magnesia mL Concentrated) sennosides 8.6 mg-docusate sodium 2 tab-cap (2 x 8.6-50 mg) PO QDAY 01/22/25 50 mg tablet (Senokot-S) PRN constipation #20 tabs duloxetine 60 mg capsule,delayed 60 mg PO QDAY #30 caps 02/14/25 release (Cymbalta) ferrous sulfate 325 mg (65 mg 325 mg PO QOD #30 tabs 02/14/25 iron) tablet,delayed release ondansetron 4 mg disintegrating 4 mg PO Q8H PRN nausea and 02/26/25 tablet vomiting #10 tabs polyethylene glycol 3350 17 4 g PO QDAY #510 grams 02/26/25 gram/dose oral powder (Miralax) Allergies Allergy/AdvReac Type Severity Reaction Status Date / Time amoxicillin (From Augmentin) Allergy Severe Hives Verified 02/27/25 06:29 aspirin Allergy Severe Abdominal Verified 02/27/25 06:29 Pain ciprofloxacin (From Cipro) Allergy Severe Gastrointestinal Verified 02/27/25 06:29 Upset clavulanic acid (From Allergy Severe Hives Verified 02/27/25 06:29 Augmentin) codeine Allergy Severe Nausea Verified 02/27/25 06:29 fluconazole Allergy Severe Rash Verified 02/27/25 06:29 gabapentin Allergy Severe Abdominal Verified 02/27/25 06:29 Pain ketorolac (From Toradol) Allergy Severe Abdominal Verified 02/27/25 06:29 Pain nalbuphine Allergy Severe Abdominal Verified 02/27/25 06:29 Pain Sulfa (Sulfonamide Allergy Severe Hives Verified 02/27/25 06:29 Antibiotics) tizanidine Allergy Severe Rash Verified 02/27/25 06:29 tramadol Allergy Severe Rash Verified 02/27/25 06:29 Review of Systems Review of Systems Systems Reviewed: All systems reviewed, normal except as documented Past Medical History Past Medical History NEUROLOGIC: Negative Neurological Disorders or Seizures CARDIAC: Positive Cardiac Disorders, Cardiac Arrhythmia, Atrial Fibrillation, Hypercholesterolemia and Hypertension; Negative Congestive Heart Failure RESPIRATORY: Positive Asthma, Pneumonia and Sleep Apnea; Negative Chronic Obstructive Pulmonary Disease (COPD) GASTROINTESTINAL: Positive Gastrointestinal Disorders, Gastrointestinal Bleed, Colitis, Ulcerative Colitis, Diverticulitis, Diverticulosis, Ulcer, Irritable Bowel, Obstructive Bowel, Hemorrhoids and Obesity GENITOURINARY: Positive Kidney Stones; Negative Genitourinary Disorders or Renal Disease REPRODUCTIVE: Positive Previous Pregnancies MUSCULOSKELETAL: Positive Musculoskeletal Disorders and Arthritis ENT: Positive Cataracts and Ear Infection ENDOCRINE: Positive Diabetes Mellitus Type 2 and Hypothyroidism; Negative Diabetes Mellitus Type 1 HEMATOLOGIC: Negative Blood Disorders or Sickle Cell Disease PSYCHO/SOCIAL: Positive Anxiety OTHER HISTORY: Positive Falls, Blood Transfusions, Chicken Pox, Mumps and Clostridium Difficile; Negative Blood Transfusion Reaction, Anesthesia Reactions or Cancer Family History FAMILY HISTORY: Positive Family Cardiac Disorders; Negative Family Respiratory Disorders Surgical History SURGICAL: Positive Cardiac Surgery, Endocrine Surgery, Thyroidectomy, Abdominal Surgery, Joint Replacement, Hysterectomy and Section Social History SMOKING STATUS: Never smoker SUBSTANCE USE: does not use ED Exam General Limitations: Present no limitations General appearance: Present alert and in no apparent distress Head Head exam: Present atraumatic, normocephalic and normal inspection Eye Eye exam: Present normal appearance, PERRL and EOMI ENT ENT exam: Present normal exam, normal oropharynx and mucous membranes moist Neck Neck exam: Present normal inspection, full ROM and trachea midline Chest Chest inspection: Present normal inspection and symmetric chest wall rise Respiratory Respiratory exam: Present normal lung sounds bilaterally Cardiovascular Cardiovascular exam: Present regular rate, normal rhythm and normal heart sounds Abdominal Exam Abdominal exam: Present soft and normal bowel sounds; Absent distention, tenderness, guarding or rebound Extremities Exam Extremities exam: Present normal inspection and full ROM Back Exam Back exam: Present normal inspection and full ROM Neurological Exam Neurological exam: Present alert, oriented X3 and CN II-XII intact Psychiatric Psychiatric exam: Present normal affect and normal mood Skin Skin exam: Present warm, dry, intact and normal color Course Quality Measures none Orders Category Date Time Status CBC Stat Lab 02/26/25 07:40 Completed CMP [Comprehensive Metabolic Panel] Stat Lab 02/26/25 07:40 Completed Lipase Stat Lab 02/26/25 07:40 Completed Acetaminophen Tab [Tylenol ES Tab] Med 02/26/25 07:25 Discontinued 1,000 mg PO X1 ONE Famotidine [Pepcid] Med 02/26/25 07:23 Discontinued 20 mg PO X1 ONE Ondansetron Odt [Zofran Odt] Med 02/26/25 06:57 Discontinued 4 mg PO X1 ONE mg Hyd/Al Hyd/Jennifer Susp [Maalox Susp] Med 02/26/25 07:23 Discontinued 30 ml PO X1 ONE Reevaluation(s) Reevaluation #1: Patient remains clinically stable throughout the emergency department visit. We reviewed all the results, analysis, and treatment plans. Patient is amenable to discharge. Strict return precautions were outlined. Patient was discharged in stable condition. Time: 09:05 Vital Signs Vital signs: Vital Signs Temperature 98.4 F 02/26/25 06:42 Pulse Rate 90 02/26/25 06:42 Respiratory Rate 17 02/26/25 06:42 Blood Pressure 134/69 H 02/26/25 06:42 Pulse Oximetry (%) 96 02/26/25 06:42 Oxygen Delivery Method Room Air 02/26/25 06:42 Pulse ox is 96% on room air which is adequate. Abdominal Pain MDM MDM Narrative MDM Narrative:: Mckenzie Ivy am scribing for and in the presence of Dr. Argueta. Patient data External records reviewed:: [facility] previous records (I reviewed ED visit on 02/19/2025 ) and EMS form Clinical information provided by:: patient Social determinants that could affect healthcare access:: none Patient has the following chronic illnesses:: atrial fibrillation on Eliquis, hypertension, diabetes, hypothyroidism IBS, duodenal ulcer, diverticulosis and recently admitted 02/05/2025 through 02/14/2025 for diverticulosis requiring IV antibiotics How is presenting disease/condition affected by chronic disease/condition?: exacerbated by Evaluation data The following diagnostics were reviewed and interpreted by me:: lab results Lab and/or radiology exams considered but not ordered:: None Interpretation Summary: Labs unchanged from previous visits. Medications / Prescriptions Medications or Prescriptions considered but not ordered:: None Medication administrations:: Medication Administration History Discontinued Medications Acetaminophen (Acetaminophen 500 Mg Tablet) 1,000 mg PO X1 ONE Stop: 02/26/25 07:26 Last Admin: 02/26/25 07:58 Dose: 1,000 mg Documented By: ORVILLE Al Hydrox/Mg Hydrox/Simethicone (Mg Hyd/Al Hyd/Jennifer (Maalox Reg) Susp 30 Ml Udc) 30 ml PO X1 ONE Stop: 02/26/25 07:24 Last Admin: 02/26/25 07:59 Dose: 30 ml Documented By: ORVILLE Famotidine (Famotidine 20 Mg Tablet) 20 mg PO X1 ONE Stop: 02/26/25 07:24 Last Admin: 02/26/25 07:58 Dose: 20 mg Documented By: ORVILLE Ondansetron HCl (Ondansetron Odt 4 Mg Tabrap) 4 mg PO X1 ONE; Protocol Stop: 02/26/25 06:58 Last Admin: 02/26/25 07:05 Dose: 4 mg Documented By: DB See above Consultations Consultation(s) initiated? (list below): No Diagnosis Differential diagnosis abdominal pain: abdominal pain, calculus of kidney, constipation, diverticulitis, gastroenteritis and other (Gastritis ) Most likely diagnosis given after review of the tests above:: Adverse medication reaction Admission Indicated Admission indicated?: not indicated Admission Request Was there a request for admission?: No Disposition Plan Disposition Plan: Discharge Discharge Attestation Discharge Attestation: The patient and all family members were given an opportunity to ask questions and understood the discharge instructions. Discharge instructions specifically effects, indications for sooner follow up or return to the emergency department, and the expected course of current diagnosis. Patient condition: Stable Discharge Plan Plan Patient Disposition: HOME (Self Care) Discharge Disposition comment: Stable for discharge home Patient condition on transfer: Stable Prescriptions/Referrals Prescriptions/Med Rec: New ondansetron 4 mg tablet,disintegrating 4 mg PO Q8H PRN (Reason: nausea and vomiting) Qty: 10 0RF No Action metformin 500 mg Tablet 500 mg PO DAILY acetaminophen 500 mg Tablet 500 mg PO PRN MDD 4 PRN (Reason: Pain) levothyroxine 50 mcg Tablet 50 mcg PO DAILY cholecalciferol (vitamin D3) [Vitamin D3] 25 mcg (1,000 unit) Tablet 25 mcg PO 1XD Align (B.infantis) 4 mg Capsule 4 mg PO DAILY loperamide 2 mg capsule 2 mg PO QDAY alprazolam 0.5 mg tablet 0.5 mg PO BID PRN (Reason: Anxiety) Patient Comments: TAKE 1 TABLET BY MOUTH THREE TIMES DAILY NEEDED FOR ANXIETY pantoprazole 40 mg tablet,delayed release (DR/EC) 40 mg PO BID Patient Comments: TAKE 1 TABLET BY MOUTH DAILY benazepril 20 mg tablet 20 mg PO QDAY ondansetron 4 mg tablet,disintegrating 4 mg PO Q8H PRN (Reason: nausea and vomiting) Qty: 30 0RF lidocaine HCl [Lidocaine Viscous] 2 % solution 5 ml PO TIDPC MDD 15 mL PRN (Reason: dyspepsia) Qty: 300 0RF sucralfate [Carafate] 100 mg/mL suspension 10 ml PO TID Qty: 500 0RF Rx Instructions: swish in mouth and swallow; use after food/drink Eliquis 5 mg Tablet 5 mg PO QDAY sennosides-docusate sodium [Senokot-S] 8.6-50 mg tablet 2 tab-cap PO QDAY PRN (Reason: constipation) Qty: 20 0RF magnesium hydroxide [Milk Of Magnesia Concentrated] 2,400 mg/10 mL suspension 30 ml PO QDAY PRN (Reason: constipation) Qty: 60 0RF ascorbic acid (vitamin C) [Vitamin C] 500 mg tablet 500 mg PO QDAY alprazolam [Xanax] 0.5 mg tablet 0.5 mg PO TID PRN (Reason: anxiety) duloxetine [Cymbalta] 60 mg capsule,delayed release(DR/EC) 60 mg PO QDAY Qty: 30 0RF ferrous sulfate 325 mg (65 mg iron) Tablet,Delayed Release (Dr/Ec) 325 mg PO QOD Qty: 30 0RF polyethylene glycol 3350 [Miralax] 17 gram/dose powder 4 g PO QDAY Qty: 510 0RF Referrals: Tyrone Langford MD [Primary Care Provider] - In 1 week Problem List Clinical Impression: Medication adverse effect, Vomiting Patient/Caregiver Discharge Instructions Discharge Activity: activity as tolerated Education Materials: ED Drug Reaction, Other, ED Vomiting and Diarrhea ... Additional Instructions: Today you were seen in the emergency department after you had some vomiting following initiating your treatment for your C. difficile. Please keep taking your antibiotic, which is called vancomycin, as directed by your doctor until they are completely gone. You should follow-up with your primary care doctor within the next several days. Please just call her office and make an appointment. You should return to the ER if you have any worsening or any further medical problems and we will help you. Print Language: Serbian Stand Alone Forms: [facility] Info., Patient Portal Info Letter
[2025-02-26 07:45] LABS: Basophils # (Auto) 0.1 Thou/mm3 (0.0-0.2); Basophils % (Auto) 1 % (0-2.5); Eosinophils # (Auto) 0.1 Thou/mm3 (0.0-0.5); Eosinophils % (Auto) 1 % (0-10); Hematocrit 32.6 % (36.0-46.0); Hemoglobin 10.4 g/dL (12.0-16.0); Immature Granulocytes Auto 0.01 Thou/mm3 (0.00-0.00); Lymphocytes # (Auto) 1.8 Thou/mm3 (1.0-4.8); Lymphocytes % (Auto) 31 % (10-50); Mean Corpuscular HGB Conc 31.9 g/dl (31.0-37.0); Mean Corpuscular Hemoglobin 26.2 pg (25.0-35.0); Mean Corpuscular Volume 82 fL (80-100); Monocytes # (Auto) 0.6 Thou/mm3 (0.0-0.8); Monocytes % (Auto) 11 % (0-12); Neutrophils # (Auto) 3.3 Thou/mm3 (1.8-7.7); Neutrophils % (Auto) 56 % (37-80); Nucleated Red Blood Cell # 0.00 Thou/mm3 (0.00-0.00); Nucleated Red Blood Cell % 0 /100 WBC (0); Platelet Count 436 Thou/mm3 (140-440); RDW Standard Deviation 50.3 fL (36.4-46.3); Red Blood Count 3.97 Miln/mm3 (4.00-5.20); White Blood Count 5.9 Thou/mm3 (3.6-11.0)
[2025-02-26] MEDS: FAMOTIDINE 20 MG TABLET PO (07:58)
[2025-02-26] MEDS: ACETAMINOPHEN 500 MG TABLET 1000 MG PO (07:58)
[2025-02-26] MEDS: MG HYD/AL HYD/SIME (Maalox Reg) SUSP 30 ML UDC PO (07:59)
[2025-02-26 08:12] VITALS: BP 161/74; PULSE 72; RESP 16; TEMP 36.3; O2SAT 96
[2025-02-26 08:21] LABS: Alanine Aminotransferase 9 U/L (10-49); Albumin, Serum 4.4 gm/dL (3.4-4.8); Albumin/Globulin Ratio 1.3 (1.2-2.2); Alkaline Phosphatase 77 U/L (46-116); Anion Gap 11 (7-16); Aspartate Amino Transferase 15 U/L (0-34); BUN/Creatinine Ratio 11 Ratio (12-20); Bilirubin,Total 0.3 mg/dL (0.3-1.2); Blood Urea Nitrogen 17 mg/dL (9-23); Calcium 9.5 mg/dL (8.3-10.6); Calcium (Corrected) 9.5 mg/dL (8.5-10.1); Carbon Dioxide 25.3 mMol/L (20.0-31.0); Chloride 102 mMol/L (98-107); Creatinine (Component) 1.5 mg/dL (0.6-1.3); Estimated Creatinine Clearance 30.2 mL/min (>60); Globulin 3.5 gm/dL (2.3-3.5); Glucose 179 mg/dL (74-106); Lipase 21 U/L (12-53); Osmolality,Calculated 281 (275-295); Potassium 4.3 mMol/L (3.4-5.1); Sodium 138 mMol/L (136-145); Total Protein 7.9 gm/dL (5.7-8.2); eGFR 35 See Note
[2025-02-26 09:51] VITALS: BP 147/78; PULSE 80; O2SAT 95
--- NOTE | 2025-02-26 09:51 | PC.CC ---
Addendum entered by Stefani Gil 02/26/25 11:53: At 1145, pt called [facility] and told health science writer that she was CDiF and could not breath. Pt sounded as if she was in labored breathing, sounded scared and was crying. Pt reports she can't be alone and is scared. [employer] called 911 for the pt and 911 stated they would send someone to her home to check on her. Original Note: [facility] arranged transportation for the pt via [employer].
== END 2025-02-26 09:52 | disposition home or self-care (01) ==
PROVIDERS: Nurse Practitioner Family; Emergency Provider Emergency Medicine; PCP Family Medicine
DX: R11.2 Nausea with vomiting, unspecified (principal); R10.9 Unspecified abdominal pain; T50.905A Adverse effect of unspecified drugs, medicaments and biological substances, initial encounter
CPT/HCPCS: 36415; 80053; 81001; 83690; 85025; 87086; 99283; Q0162; A9270

== ENCOUNTER 2025-02-26 15:52 | Emergency (ER) | payer MEDICARE, BC, SELFPAY ==
[2025-02-26 15:52] VITALS: BMI 31.2
[2025-02-26 16:07] VITALS: BP 138/81; PULSE 95; RESP 20; TEMP 36.7; O2SAT 95
--- NOTE | 2025-02-26 16:22 | PD.EDABDPN ---
ED Abdominal Pain RME/HPI General Chief Complaint: Abdominal Pain Stated complaint: ABD PAIN C/B C.DIFF Time seen by provider: 02/26/25 15:57 Arrival date/time: 02/26/25 15:52 RME / HPI RME / HPI narrative: 79-year-old female presents to the ED with complaint of chronic abdominal pain. She states she was diagnosed with C. difficile 6 days ago and just started taking her vancomycin orally that was prescribed by her her primary care physician. She denies any current diarrhea stating her last bowel movement was on Thursday. She was seen here earlier today and had a complete workup and was discharged home. Related Data Home Medications ?Medication ?Instructions ?Recorded ?Confirmed Bifidobacterium infantis 4 mg 4 mg PO DAILY 06/27/23 02/05/25 capsule (Align (B.infantis)) acetaminophen 500 mg tablet 500 mg PO PRN PRN Pain 06/27/23 02/05/25 cholecalciferol (vitamin D3) 25 25 mcg PO 1XD 06/27/23 02/05/25 mcg (1,000 unit) tablet (Vitamin D3) levothyroxine 50 mcg tablet 50 mcg PO DAILY 06/27/23 02/05/25 metformin 500 mg tablet 500 mg PO DAILY 06/27/23 02/05/25 alprazolam 0.5 mg tablet 0.5 mg PO BID PRN Anxiety 10/28/23 02/05/25 benazepril 20 mg tablet 20 mg PO QDAY 10/28/23 02/05/25 loperamide 2 mg capsule 2 mg PO QDAY 10/28/23 02/06/25 pantoprazole 40 mg tablet,delayed 40 mg PO BID 10/28/23 02/05/25 release apixaban 5 mg tablet (Eliquis) 5 mg PO QDAY 06/11/24 02/05/25 alprazolam 0.5 mg tablet (Xanax) 0.5 mg PO TID PRN anxiety 02/05/25 02/05/25 ascorbic acid (vitamin C) 500 mg 500 mg PO QDAY 02/05/25 02/05/25 tablet (Vitamin C) Previous Rx's ?Medication ?Instructions ?Recorded ondansetron 4 mg disintegrating 4 mg PO Q8H PRN nausea and 02/22/24 tablet vomiting #30 tabs lidocaine HCl 2 % mucosal solution 5 ml PO TIDPC PRN dyspepsia #300 mL 07/02/24 (Lidocaine Viscous) sucralfate 100 mg/mL oral 10 ml PO TID #500 mL 07/02/24 suspension (Carafate) magnesium hydroxide 2,400 mg/10 mL 30 ml PO QDAY PRN constipation #60 01/22/25 oral suspension (Milk Of Magnesia mL Concentrated) sennosides 8.6 mg-docusate sodium 2 tab-cap (2 x 8.6-50 mg) PO QDAY 01/22/25 50 mg tablet (Senokot-S) PRN constipation #20 tabs duloxetine 60 mg capsule,delayed 60 mg PO QDAY #30 caps 02/14/25 release (Cymbalta) ferrous sulfate 325 mg (65 mg 325 mg PO QOD #30 tabs 02/14/25 iron) tablet,delayed release ondansetron 4 mg disintegrating 4 mg PO Q8H PRN nausea and 02/26/25 tablet vomiting #10 tabs polyethylene glycol 3350 17 4 g PO QDAY #510 grams 02/26/25 gram/dose oral powder (Miralax) Allergies Allergy/AdvReac Type Severity Reaction Status Date / Time amoxicillin (From Augmentin) Allergy Severe Hives Verified 02/26/25 15:55 aspirin Allergy Severe Abdominal Verified 02/26/25 15:55 Pain ciprofloxacin (From Cipro) Allergy Severe Gastrointestinal Verified 02/26/25 15:55 Upset clavulanic acid (From Allergy Severe Hives Verified 02/26/25 15:55 Augmentin) codeine Allergy Severe Nausea Verified 02/26/25 15:55 fluconazole Allergy Severe Rash Verified 02/26/25 15:55 gabapentin Allergy Severe Abdominal Verified 02/26/25 15:55 Pain ketorolac (From Toradol) Allergy Severe Abdominal Verified 02/26/25 15:55 Pain nalbuphine Allergy Severe Abdominal Verified 02/26/25 15:55 Pain Sulfa (Sulfonamide Allergy Severe Hives Verified 02/26/25 15:55 Antibiotics) tizanidine Allergy Severe Rash Verified 02/26/25 15:55 tramadol Allergy Severe Rash Verified 02/26/25 15:55 Review of Systems Review of Systems Systems Reviewed: All systems reviewed, normal except as documented Past Medical History Past Medical History NEUROLOGIC: Negative Neurological Disorders or Seizures CARDIAC: Positive Cardiac Disorders, Cardiac Arrhythmia, Atrial Fibrillation, Hypercholesterolemia and Hypertension; Negative Congestive Heart Failure RESPIRATORY: Positive Asthma, Pneumonia and Sleep Apnea; Negative Chronic Obstructive Pulmonary Disease (COPD) GASTROINTESTINAL: Positive Gastrointestinal Disorders, Gastrointestinal Bleed, Colitis, Ulcerative Colitis, Diverticulitis, Diverticulosis, Ulcer, Irritable Bowel, Obstructive Bowel, Hemorrhoids and Obesity GENITOURINARY: Positive Kidney Stones; Negative Genitourinary Disorders or Renal Disease REPRODUCTIVE: Positive Previous Pregnancies MUSCULOSKELETAL: Positive Musculoskeletal Disorders and Arthritis ENT: Positive Cataracts and Ear Infection ENDOCRINE: Positive Diabetes Mellitus Type 2 and Hypothyroidism; Negative Diabetes Mellitus Type 1 HEMATOLOGIC: Negative Blood Disorders or Sickle Cell Disease PSYCHO/SOCIAL: Positive Anxiety OTHER HISTORY: Positive Falls, Blood Transfusions, Chicken Pox, Mumps and Clostridium Difficile; Negative Blood Transfusion Reaction, Anesthesia Reactions or Cancer Family History FAMILY HISTORY: Positive Family Cardiac Disorders; Negative Family Respiratory Disorders Surgical History SURGICAL: Positive Cardiac Surgery, Endocrine Surgery, Thyroidectomy, Abdominal Surgery, Joint Replacement, Hysterectomy and Section Social History SMOKING STATUS: Never smoker SUBSTANCE USE: does not use ED Exam Narrative Physical exam: A&O, afebrile and non-toxic appearing 79-year-old female, no acute distress. Lungs are clear, irregularly irregular heart rhythm, Abdomen is soft with mild generalized tenderness, non-distended. Moves all extremities well. Course Course Course Narrative: Discussed case with Dr. Argueta who the patient was seen by this morning. A complete workup was performed at that time. No further workup necessary at this time. Quality Measures none Vital Signs Vital signs: Vital Signs Temperature 98.1 F 02/26/25 16:07 Pulse Rate 95 02/26/25 16:07 Respiratory Rate 20 02/26/25 16:07 Blood Pressure 138/81 H 02/26/25 16:07 Pulse Oximetry (%) 95 02/26/25 16:07 Oxygen Delivery Method Room Air 02/26/25 16:07 Abdominal Pain MDM MDM Narrative MDM Narrative:: 79-year-old female presents to the ED with complaint of chronic abdominal pain. She states she was diagnosed with C. difficile 6 days ago and just started taking her vancomycin orally that was prescribed by her her primary care physician. She denies any current diarrhea stating her last bowel movement was on Thursday. She was seen here earlier today and had a complete workup and was discharged home. A&O, afebrile and non-toxic appearing 79-year-old female, no acute distress. Lungs are clear, irregularly irregular heart rhythm, Abdomen is soft with mild generalized tenderness, non-distended. Moves all extremities well. Discussed case with Dr. Argueta who the patient was seen by this morning. A complete workup was performed at that time. No further workup necessary at this time. Symptoms, exam are consistent with: Irritable bowel syndrome as well as C. difficile colitis. Patient was discharged home in stable condition. Patient/family advised to follow-up with their PCP in 24-48 hours. Encouraged to return to the ED for any new or worsening symptoms. Patient data External records reviewed:: [facility] previous records Clinical information provided by:: patient Social determinants that could affect healthcare access:: none Patient has the following chronic illnesses:: History of colitis, irritable bowel syndrome, diverticulosis, diabetes, and current C. difficile infection How is presenting disease/condition affected by chronic disease/condition?: exacerbated by Evaluation data The following diagnostics were reviewed and interpreted by me:: other (specify) (None at this time) Lab and/or radiology exams considered but not ordered:: N/A Interpretation Summary: N/A Medications / Prescriptions Medications or Prescriptions considered but not ordered:: N/A Medication administrations:: N/A Consultations Consultation(s) initiated? (list below): Yes Consultation #1 (Physician, Specialty, Details): Discussed case with Dr. Argueta. Diagnosis Differential diagnosis abdominal pain: abdominal pain, constipation, diverticulitis and other (Irritable bowel syndrome) Most likely diagnosis given after review of the tests above:: Irritable bowel syndrome with constipation Admission Indicated Admission indicated?: not indicated Explain why admission is indicated or not indicated:: Stable for discharge Admission Request Was there a request for admission?: No Disposition Plan Disposition Plan: Discharge Discharge Attestation Discharge Attestation: The patient and all family members were given an opportunity to ask questions and understood the discharge instructions. Discharge instructions specifically effects, indications for sooner follow up or return to the emergency department, and the expected course of current diagnosis. Patient condition: Stable Discharge Plan Plan Patient Disposition: HOME (Self Care) Discharge Disposition comment: Stable Prescriptions/Referrals Prescriptions/Med Rec: New polyethylene glycol 3350 [Miralax] 17 gram/dose powder 4 g PO QDAY Qty: 510 0RF No Action metformin 500 mg Tablet 500 mg PO DAILY acetaminophen 500 mg Tablet 500 mg PO PRN MDD 4 PRN (Reason: Pain) levothyroxine 50 mcg Tablet 50 mcg PO DAILY cholecalciferol (vitamin D3) [Vitamin D3] 25 mcg (1,000 unit) Tablet 25 mcg PO 1XD Align (B.infantis) 4 mg Capsule 4 mg PO DAILY loperamide 2 mg capsule 2 mg PO QDAY alprazolam 0.5 mg tablet 0.5 mg PO BID PRN (Reason: Anxiety) Patient Comments: TAKE 1 TABLET BY MOUTH THREE TIMES DAILY NEEDED FOR ANXIETY pantoprazole 40 mg tablet,delayed release (DR/EC) 40 mg PO BID Patient Comments: TAKE 1 TABLET BY MOUTH DAILY benazepril 20 mg tablet 20 mg PO QDAY ondansetron 4 mg tablet,disintegrating 4 mg PO Q8H PRN (Reason: nausea and vomiting) Qty: 30 0RF lidocaine HCl [Lidocaine Viscous] 2 % solution 5 ml PO TIDPC MDD 15 mL PRN (Reason: dyspepsia) Qty: 300 0RF sucralfate [Carafate] 100 mg/mL suspension 10 ml PO TID Qty: 500 0RF Rx Instructions: swish in mouth and swallow; use after food/drink ondansetron 4 mg tablet,disintegrating 4 mg PO Q8H PRN (Reason: nausea and vomiting) Qty: 10 0RF Eliquis 5 mg Tablet 5 mg PO QDAY sennosides-docusate sodium [Senokot-S] 8.6-50 mg tablet 2 tab-cap PO QDAY PRN (Reason: constipation) Qty: 20 0RF magnesium hydroxide [Milk Of Magnesia Concentrated] 2,400 mg/10 mL suspension 30 ml PO QDAY PRN (Reason: constipation) Qty: 60 0RF ascorbic acid (vitamin C) [Vitamin C] 500 mg tablet 500 mg PO QDAY alprazolam [Xanax] 0.5 mg tablet 0.5 mg PO TID PRN (Reason: anxiety) duloxetine [Cymbalta] 60 mg capsule,delayed release(DR/EC) 60 mg PO QDAY Qty: 30 0RF ferrous sulfate 325 mg (65 mg iron) Tablet,Delayed Release (Dr/Ec) 325 mg PO QOD Qty: 30 0RF Problem List Clinical Impression: Clostridium difficile infection Patient/Caregiver Discharge Instructions Education Materials: C diff Additional Instructions: Take the MiraLAX daily to help control your bowel symptoms. This medication will help regulate your bowel movements. Follow-up with your primary care physician within 24 hours. Return to the ED for any new or worsening symptoms. Print Language: Salvadorean Stand Alone Forms: [employer] Award Info., Patient Portal Info Letter PA/AUTO EMISSIONS TECHNICIAN Supervising Physician PA/AUTO EMISSIONS TECHNICIAN Supervising Physician: Dr. Argueta
== END 2025-02-26 16:41 | disposition home or self-care (01) ==
LOC: SERX 16:31
PROVIDERS: Emergency Provider Emergency Medicine; PCP Family Medicine
DX: A04.72 Enterocolitis due to Clostridium difficile, not specified as recurrent (principal)
CPT/HCPCS: 99283

== ENCOUNTER 2025-02-27 06:19 | Emergency (ER) | payer MEDICARE, BC, SELFPAY ==
[2025-02-27 06:20] VITALS: PULSE 88; RESP 20; O2SAT 96; BMI 31.2
[2025-02-27 06:39] VITALS: BP 135/83; PULSE 93; RESP 20; TEMP 36.4; O2SAT 96
--- NOTE | 2025-02-27 06:39 | XR_ITS ---
Examination: CT abdomen and pelvis without contrast. Coronal 3-D reconstructions. Sagittal 2-D reconstructions. Examination 2024 0601 hrs. Technique: Axial images of the abdomen have been obtained, 3 mm slice thickness Intravenous contrast material has not been administered. Low dose protocols were performed. One or more of the following dose reduction techniques were used; automated exposure control, adjustment of the mA and/or KV according to patient size, use of iterative reconstruction technique. Ladder intact Findings: No focal liver or splenic lesions. Normal pancreas normal gallbladder Aorta normal size No pericecal inflammatory change No bowel obstruction or diverticulitis Bladder intact Right hip arthroplasty generates artifacts in the pelvis Impression: No acute process in the abdomen or pelvis
--- NOTE | 2025-02-27 06:40 | PD.EDRME ---
Rapid Medical Screening Exam RME Arrival date/time: 02/27/25 06:19 This is a case of 79-year-old female with recently diagnosed C. difficile came in in the emergency room due to abdominal pain nausea vomiting diarrhea for 3 days worsening of the symptoms this patient decided to start consult here in the emergency room Chief Complaint: Abdominal Pain Time Seen by Provider: 02/27/25 06:37
[2025-02-27] MEDS: ONDANSETRON ODT 4 MG TABRAP PO (06:52)
--- NOTE | 2025-02-27 07:15 | PC.NURSE ---
PT HERE WITH C/O ABD PAIN FOR 4 DAY WITH DIARRHEA. STATES DIAGNOSED WITH C-DIFF 3 DAYS AGO AND WAS PUT ON VANCOMYCIN
[2025-02-27 07:20] VITALS: BP 172/68; PULSE 67; RESP 18; TEMP 36.4; O2SAT 98
--- NOTE | 2025-02-27 07:58 | PD.EDABDPN ---
ED Abdominal Pain RME/HPI General Chief Complaint: Abdominal Pain Stated complaint: ABD PAIN Time seen by provider: 02/27/25 06:37 Arrival date/time: 02/27/25 06:19 Limitations: no limitations RME / HPI RME / HPI narrative: 02/27/25 06:19 This is a case of 79-year-old female with recently diagnosed C. difficile came in in the emergency room due to abdominal pain nausea vomiting diarrhea for 3 days worsening of the symptoms this patient decided to start consult here in the emergency room DR. SUKUMAR HORN ED EVALUATION 79 year old female with history of atrial fibrillation on Eliquis, hypertension, diabetes, hypothyroidism IBS, duodenal ulcer, diverticulosis (admitted 02/05/2025 - 02/14/2025 for diverticulosis requiring IV antibiotics) and diagnosed with C. Diff 7 days ago by PCP presents to the ED BIBA from home for complaint of nausea, vomiting, and abdominal pain today. Accompanied by feeling globally weak. Patient states she started on Vancomycin 125mg QID 2 days ago for the C. Diff and concerned that her symptoms have not improved. Symptoms today are unchanged from last two visits. Denies fevers, chills, chest pain, or urinary symptoms. Related Data Home Medications ?Medication ?Instructions ?Recorded ?Confirmed Bifidobacterium infantis 4 mg 4 mg PO DAILY 06/27/23 02/05/25 capsule (Align (B.infantis)) acetaminophen 500 mg tablet 500 mg PO PRN PRN Pain 06/27/23 02/05/25 cholecalciferol (vitamin D3) 25 25 mcg PO 1XD 06/27/23 02/05/25 mcg (1,000 unit) tablet (Vitamin D3) levothyroxine 50 mcg tablet 50 mcg PO DAILY 06/27/23 02/05/25 metformin 500 mg tablet 500 mg PO DAILY 06/27/23 02/05/25 alprazolam 0.5 mg tablet 0.5 mg PO BID PRN Anxiety 10/28/23 02/05/25 benazepril 20 mg tablet 20 mg PO QDAY 10/28/23 02/05/25 loperamide 2 mg capsule 2 mg PO QDAY 10/28/23 02/06/25 pantoprazole 40 mg tablet,delayed 40 mg PO BID 10/28/23 02/05/25 release apixaban 5 mg tablet (Eliquis) 5 mg PO QDAY 06/11/24 02/05/25 alprazolam 0.5 mg tablet (Xanax) 0.5 mg PO TID PRN anxiety 02/05/25 02/05/25 ascorbic acid (vitamin C) 500 mg 500 mg PO QDAY 02/05/25 02/05/25 tablet (Vitamin C) Previous Rx's ?Medication ?Instructions ?Recorded ondansetron 4 mg disintegrating 4 mg PO Q8H PRN nausea and 02/22/24 tablet vomiting #30 tabs lidocaine HCl 2 % mucosal solution 5 ml PO TIDPC PRN dyspepsia #300 mL 07/02/24 (Lidocaine Viscous) sucralfate 100 mg/mL oral 10 ml PO TID #500 mL 07/02/24 suspension (Carafate) magnesium hydroxide 2,400 mg/10 mL 30 ml PO QDAY PRN constipation #60 01/22/25 oral suspension (Milk Of Magnesia mL Concentrated) sennosides 8.6 mg-docusate sodium 2 tab-cap (2 x 8.6-50 mg) PO QDAY 01/22/25 50 mg tablet (Senokot-S) PRN constipation #20 tabs duloxetine 60 mg capsule,delayed 60 mg PO QDAY #30 caps 02/14/25 release (Cymbalta) ferrous sulfate 325 mg (65 mg 325 mg PO QOD #30 tabs 02/14/25 iron) tablet,delayed release ondansetron 4 mg disintegrating 4 mg PO Q8H PRN nausea and 02/26/25 tablet vomiting #10 tabs polyethylene glycol 3350 17 4 g PO QDAY #510 grams 02/26/25 gram/dose oral powder (Miralax) Allergies Allergy/AdvReac Type Severity Reaction Status Date / Time amoxicillin (From Augmentin) Allergy Severe Hives Verified 02/27/25 06:29 aspirin Allergy Severe Abdominal Verified 02/27/25 06:29 Pain ciprofloxacin (From Cipro) Allergy Severe Gastrointestinal Verified 02/27/25 06:29 Upset clavulanic acid (From Allergy Severe Hives Verified 02/27/25 06:29 Augmentin) codeine Allergy Severe Nausea Verified 02/27/25 06:29 fluconazole Allergy Severe Rash Verified 02/27/25 06:29 gabapentin Allergy Severe Abdominal Verified 02/27/25 06:29 Pain ketorolac (From Toradol) Allergy Severe Abdominal Verified 02/27/25 06:29 Pain nalbuphine Allergy Severe Abdominal Verified 02/27/25 06:29 Pain Sulfa (Sulfonamide Allergy Severe Hives Verified 02/27/25 06:29 Antibiotics) tizanidine Allergy Severe Rash Verified 02/27/25 06:29 tramadol Allergy Severe Rash Verified 02/27/25 06:29 Review of Systems Review of Systems Systems Reviewed: All systems reviewed, normal except as documented Past Medical History Past Medical History CARDIAC: Positive Cardiac Disorders, Cardiac Arrhythmia, Atrial Fibrillation, Hypercholesterolemia and Hypertension RESPIRATORY: Positive Asthma, Pneumonia and Sleep Apnea GASTROINTESTINAL: Positive Gastrointestinal Disorders, Gastrointestinal Bleed, Colitis, Ulcerative Colitis, Diverticulitis, Diverticulosis, Ulcer, Irritable Bowel, Obstructive Bowel, Hemorrhoids and Obesity GENITOURINARY: Positive Kidney Stones REPRODUCTIVE: Positive Previous Pregnancies MUSCULOSKELETAL: Positive Musculoskeletal Disorders and Arthritis ENT: Positive Cataracts and Ear Infection ENDOCRINE: Positive Diabetes Mellitus Type 2 and Hypothyroidism PSYCHO/SOCIAL: Positive Anxiety OTHER HISTORY: Positive Falls, Blood Transfusions, Chicken Pox, Mumps and Clostridium Difficile Family History FAMILY HISTORY: Positive Family Cardiac Disorders; Negative Family Respiratory Disorders Surgical History SURGICAL: Positive Cardiac Surgery, Endocrine Surgery, Thyroidectomy, Abdominal Surgery, Joint Replacement, Hysterectomy and Section Social History SMOKING STATUS: Never smoker SUBSTANCE USE: does not use ED Exam General Limitations: Present no limitations General appearance: Present alert and in no apparent distress Head Head exam: Present atraumatic, normocephalic and normal inspection Eye Eye exam: Present normal appearance, PERRL and EOMI ENT ENT exam: Present normal exam, normal oropharynx and mucous membranes moist Neck Neck exam: Present normal inspection, full ROM and trachea midline Chest Chest inspection: Present normal inspection and symmetric chest wall rise Respiratory Respiratory exam: Present normal lung sounds bilaterally Cardiovascular Cardiovascular exam: Present regular rate, normal rhythm and normal heart sounds Abdominal Exam Abdominal exam: Present soft, tenderness (generalized tenderness, no guarding, no rebound, no area hurts more than others. ) and normal bowel sounds Extremities Exam Extremities exam: Present normal inspection and full ROM Back Exam Back exam: Present normal inspection and full ROM Neurological Exam Neurological exam: Present alert, oriented X3 and CN II-XII intact Psychiatric Psychiatric exam: Present normal affect and normal mood Skin Skin exam: Present warm, dry, intact and normal color Course Course Course Narrative: Patient is a 79-year-old female who was discharged from the hospital 12 days ago after an extended admission here at [facility], she has confirmed C. difficile although she states she has a few episodes of diarrhea per day, who has come to the emergency department now 5 times since she was discharged. Patient's complaints involve generalized nonsevere abdominal pains with diarrhea and also nausea. She states she vomited once. Patient states she thinks that she has weak and dehydrated. Patient had a full workup yesterday including blood work which showed she has no signs of having a prerenal state. Patient's electrolytes are within normal limits. I ordered Zofran for her at home yesterday and she states she picked up her prescription. She states when she takes that her nausea resolves. Patient has an anxiety disorder and I spoke to her about her frequent visits to the ER. It seems that the patient is anxious to be home alone, although she has a home health nurse Thursday through Thursday, and she had a misunderstanding about expectations of her symptoms resolving now that she is on vancomycin 125 mg 4 times daily. She today stated that she is not better yet and so she came to the ER. I let her know that she should not expect to have a complete resolution of her symptoms for at least a week or 2. I told her that she is more than welcome to come back to the ER anytime she needs this or if she is scared and we will help her. I do not feel that another workup was warranted today as she had a complete one yesterday. She did have a CT today which was read as normal. Plan is to discharge her home, have her take her home meds, have her call her primary care doctor for a follow-up appointment and to return if she needs us Quality Measures none Orders Category Date Time Status CT abdomen pelvis wo con Stat Exams 02/27/25 06:39 Completed ALPRazoLAM [Xanax] Med 02/27/25 08:08 Discontinued 0.5 mg PO X1 ONE Acetaminophen Tab [Tylenol ES Tab] Med 02/27/25 08:08 Discontinued 1,000 mg PO X1 ONE Dicyclomine Inj [Bentyl Inj] Med 02/27/25 06:39 Discontinued 10 mg IM X1 ONE Ondansetron Odt [Zofran Odt] Med 02/27/25 06:39 Discontinued 4 mg PO X1 ONE Vital Signs Vital signs: Vital Signs Temperature 97.6 F 07/21/25 06:39 Pulse Rate 93 02/27/25 06:39 Respiratory Rate 20 02/27/25 06:39 Blood Pressure 135/83 H 02/27/25 06:39 Pulse Oximetry (%) 96 02/27/25 06:39 Pulse ox is 96% on room air which is adequate. Abdominal Pain MDM MDM Narrative MDM Narrative:: IMckenzie, willis scribing for and in the presence of Dr. Argueta. The patient was diagnosed with C. difficile 7 days ago and started on vancomycin; she returns today for the third time this week, with no labs indicated as previous labs from the last two visits showed no acute abnormalities or signs of dehydration, and a CT scan performed today is negative for any acute process. Patient data External records reviewed:: [facility] previous records (I reviewed last two ED visits from yesterday 02/26/2025 ) and EMS form Clinical information provided by:: patient Social determinants that could affect healthcare access:: none Patient has the following chronic illnesses:: atrial fibrillation on Eliquis, hypertension, diabetes, hypothyroidism IBS, duodenal ulcer, diverticulosis (admitted 02/05/2025 - 02/14/2025 for diverticulosis requiring IV antibiotics) and diagnosed with C. Diff 7 days ago by PCP Dx with C. Diff 1 week ago and started on Vancomycin How is presenting disease/condition affected by chronic disease/condition?: exacerbated by Evaluation data The following diagnostics were reviewed and interpreted by me:: radiology exam(s) Lab and/or radiology exams considered but not ordered:: None Interpretation Summary: Ordering Physician: Imelda Beckford Date of Service: 02/27/25 Procedure(s): CT abdomen pelvis wo con Accession Number(s): [id number] cc: Miles Navas MD; Chuy Langford MD; Imelda Beckford~ Examination: CT abdomen and pelvis without contrast. Coronal 3-D reconstructions. Sagittal 2-D reconstructions. Examination 2024 0601 hrs. Technique: Axial images of the abdomen have been obtained, 3 mm slice thickness Intravenous contrast material has not been administered. Low dose protocols were performed. One or more of the following dose reduction techniques were used; automated exposure control, adjustment of the mA and/or KV according to patient size, use of iterative reconstruction technique. Ladder intact Findings: No focal liver or splenic lesions. Normal pancreas normal gallbladder Aorta normal size No pericecal inflammatory change No bowel obstruction or diverticulitis Bladder intact Right hip arthroplasty generates artifacts in the pelvis Impression: No acute process in the abdomen or pelvis Dictated By: Miles Navas MD Signed By: <Electronically signed by Miles Navas MD in OV> 02/27/25 0735 Medications / Prescriptions Medications or Prescriptions considered but not ordered:: None Medication administrations:: Medication Administration History Discontinued Medications Acetaminophen (Acetaminophen 500 Mg Tablet) 1,000 mg PO X1 ONE Stop: 02/27/25 08:09 Alprazolam (Alprazolam 0.25 Mg Tablet) 0.5 mg PO X1 ONE Stop: 02/27/25 08:09 Dicyclomine HCl (Dicyclomine Inj 10 Mg/Ml 2ml Amp) 10 mg IM X1 ONE Stop: 02/27/25 06:40 Last Admin: 02/27/25 06:52 Dose: Not Given Documented By: RITCHIE Non-Admin Reason: Patient Refused Ondansetron HCl (Ondansetron Odt 4 Mg Tabrap) 4 mg PO X1 ONE; Protocol Stop: 02/27/25 06:40 Last Admin: 02/27/25 06:52 Dose: 4 mg Documented By: RITCHIE See above Consultations Consultation(s) initiated? (list below): No Diagnosis Differential diagnosis abdominal pain: abdominal pain, diverticulitis and other (C. Diff, medication side effect) Most likely diagnosis given after review of the tests above:: C. Difficile enteritis Diarrhea Nausea Admission Indicated Admission indicated?: not indicated Admission Request Was there a request for admission?: No Disposition Plan Disposition Plan: Discharge Discharge Attestation Discharge Attestation: The patient and all family members were given an opportunity to ask questions and understood the discharge instructions. Discharge instructions specifically effects, indications for sooner follow up or return to the emergency department, and the expected course of current diagnosis. Patient condition: Stable Discharge Plan Plan Patient Disposition: HOME (Self Care) Discharge Disposition comment: Stable for discharge home Patient condition on transfer: Stable Prescriptions/Referrals Prescriptions/Med Rec: No Action metformin 500 mg Tablet 500 mg PO DAILY acetaminophen 500 mg Tablet 500 mg PO PRN MDD 4 PRN (Reason: Pain) levothyroxine 50 mcg Tablet 50 mcg PO DAILY cholecalciferol (vitamin D3) [Vitamin D3] 25 mcg (1,000 unit) Tablet 25 mcg PO 1XD Align (B.infantis) 4 mg Capsule 4 mg PO DAILY loperamide 2 mg capsule 2 mg PO QDAY alprazolam 0.5 mg tablet 0.5 mg PO BID PRN (Reason: Anxiety) Patient Comments: TAKE 1 TABLET BY MOUTH THREE TIMES DAILY NEEDED FOR ANXIETY pantoprazole 40 mg tablet,delayed release (DR/EC) 40 mg PO BID Patient Comments: TAKE 1 TABLET BY MOUTH DAILY benazepril 20 mg tablet 20 mg PO QDAY ondansetron 4 mg tablet,disintegrating 4 mg PO Q8H PRN (Reason: nausea and vomiting) Qty: 30 0RF lidocaine HCl [Lidocaine Viscous] 2 % solution 5 ml PO TIDPC MDD 15 mL PRN (Reason: dyspepsia) Qty: 300 0RF sucralfate [Carafate] 100 mg/mL suspension 10 ml PO TID Qty: 500 0RF Rx Instructions: swish in mouth and swallow; use after food/drink ondansetron 4 mg tablet,disintegrating 4 mg PO Q8H PRN (Reason: nausea and vomiting) Qty: 10 0RF Eliquis 5 mg Tablet 5 mg PO QDAY sennosides-docusate sodium [Senokot-S] 8.6-50 mg tablet 2 tab-cap PO QDAY PRN (Reason: constipation) Qty: 20 0RF magnesium hydroxide [Milk Of Magnesia Concentrated] 2,400 mg/10 mL suspension 30 ml PO QDAY PRN (Reason: constipation) Qty: 60 0RF ascorbic acid (vitamin C) [Vitamin C] 500 mg tablet 500 mg PO QDAY alprazolam [Xanax] 0.5 mg tablet 0.5 mg PO TID PRN (Reason: anxiety) duloxetine [Cymbalta] 60 mg capsule,delayed release(DR/EC) 60 mg PO QDAY Qty: 30 0RF ferrous sulfate 325 mg (65 mg iron) Tablet,Delayed Release (Dr/Ec) 325 mg PO QOD Qty: 30 0RF polyethylene glycol 3350 [Miralax] 17 gram/dose powder 4 g PO QDAY Qty: 510 0RF Referrals: Chuy Langford MD [Primary Care Provider] - In 1 week Problem List Clinical Impression: C. difficile enteritis, Diarrhea, Nausea Patient/Caregiver Discharge Instructions Discharge Activity: activity as tolerated Education Materials: Clostridium Difficile Infection, What Is C. Diff?, My C. Diff Infection Treatment Plan Additional Instructions: Please return to the emergency department if you have any worsening or any further medical problems and we will help you. Otherwise you should follow-up with your primary care doctor within the next several days Today you were seen again in the emergency department for generalized abdominal pain as well as nausea and your diarrhea. Please continue to take your vancomycin antibiotic as directed, and that means you take the medicine 4 times per day. You are more than welcome to return to the ER anytime that you need us and we will help you. Please call Dr. Langford and make a follow-up appointment with him. Print Language: Luxembourgish Stand Alone Forms: [employer] Award Info., Patient Portal Info Letter
--- NOTE | 2025-02-27 08:00 | PC.NURSE ---
DR. PATINO IN TO SEE PT
[2025-02-27] MEDS: ACETAMINOPHEN 500 MG TABLET 1000 MG PO (08:41)
--- NOTE | 2025-02-27 08:41 | PC.NURSE ---
PHARMACY CALLED FOR XANAX
[2025-02-27 09:30] VITALS: BP 153/71; PULSE 80; RESP 16; O2SAT 97
== END 2025-02-27 09:30 | disposition home or self-care (01) ==
PROVIDERS: Emergency Provider Emergency Medicine; PCP Family Medicine
DX: A04.72 Enterocolitis due to Clostridium difficile, not specified as recurrent (principal)
CPT/HCPCS: 74176; 80053; 81001; 83690; 85025; 99283; Q0162; A9270

== ENCOUNTER 2025-02-28 04:09 | Emergency (ER) | payer MEDICARE, BC, SELFPAY ==
[2025-02-28 04:14] VITALS: BP 156/82; PULSE 88; RESP 18; TEMP 36.8; O2SAT 93
[2025-02-28 04:25] VITALS: BMI 28.5
--- NOTE | 2025-02-28 04:38 | XR_ITS ---
Examination: CT cervical spine without contrast 2-D sagittal reconstructions 2-D coronal reconstructions 3-D reconstructions. Exam date and time:February 28, 2025, 0456 hours INDICATIONS: Patient fell today, injury to neck, neck pain CTDI:vol (mGy) 16.5 DLP: (mGycm) 308 Technique: Multiple 2 mm axial sections of the cervical spine have been obtained. The coronal and sagittal reconstructions have been obtained. 3-D reconstructions have been obtained. Low dose protocols were performed. One or more of the following dose reduction techniques were used; automated exposure control, adjustment of the mA and/or KV according to patient size, use of iterative reconstruction technique. Findings: Axial sections demonstrate intact base of the skull. C1 exhibit satisfactory relationship to the odontoid. No acute cervical vertebral body fracture seen. Alignment posterior spinous processes satisfactory. Impression: No acute cervical fracture.
--- NOTE | 2025-02-28 04:38 | XR_ITS ---
Examination: CT brain head without contrast. 2-D sagittal coronal reconstructions Date and time of exam:February 28, 2025, 0455 hours INDICATIONS: Patient fell today with injury to the head, head pain CTDI: vol (mGy):46.2 DLP: (mGycm):910 Technique: Multiple CT axial sections of the brain have been obtained, 5 mm slice thickness. Contrast has not been administered. 2-D sagittal, coronal reconstructions have been obtained Low dose protocols were performed. One or more of the following dose reduction techniques were used; automated exposure control, adjustment of the mA and/or KV according to patient size, use of iterative reconstruction technique. Findings: No significant ventricular enlargement. Intra-axial or extra-axial hemorrhage density is not seen. No mass effect or midline shift Basal cisterns are not remarkable. Fourth ventricle is midline. Cranial vault intact. Impression: Negative for acute hemorrhage, mass effect or midline shift
--- NOTE | 2025-02-28 04:38 | PD.EDFALL ---
ED Fall Injury RME/HPI General Chief Complaint: Fall Stated Complaint: FALL Time Seen by Provider: 02/28/25 04:38 Arrival date/time: 02/28/25 04:09 RME / HPI RME / HPI Narrative: Dr. Santana?s Main ED Evaluation: 79yo female with a history of aFib on Eliquis, HTN, DM BIBA from home presents to the ED for a chief complaint of a fall. Patient states she accidentally rolled out of bed after she was dreaming and hit her head on the hardwood floor. Patient states she did lose consciousness for a few seconds. She reports associated neck pain. No chest pain, abdominal pain, extremity pain or any other associated symptoms. Related Data Home Medications ?Medication ?Instructions ?Recorded ?Confirmed Bifidobacterium infantis 4 mg 4 mg PO DAILY 06/27/23 02/05/25 capsule (Align (B.infantis)) acetaminophen 500 mg tablet 500 mg PO PRN PRN Pain 06/27/23 02/05/25 cholecalciferol (vitamin D3) 25 25 mcg PO 1XD 06/27/23 02/05/25 mcg (1,000 unit) tablet (Vitamin D3) levothyroxine 50 mcg tablet 50 mcg PO DAILY 06/27/23 02/05/25 metformin 500 mg tablet 500 mg PO DAILY 06/27/23 02/05/25 alprazolam 0.5 mg tablet 0.5 mg PO BID PRN Anxiety 10/28/23 02/05/25 benazepril 20 mg tablet 20 mg PO QDAY 10/28/23 02/05/25 loperamide 2 mg capsule 2 mg PO QDAY 10/28/23 02/06/25 pantoprazole 40 mg tablet,delayed 40 mg PO BID 10/28/23 02/05/25 release apixaban 5 mg tablet (Eliquis) 5 mg PO QDAY 06/11/24 02/05/25 alprazolam 0.5 mg tablet (Xanax) 0.5 mg PO TID PRN anxiety 02/05/25 02/05/25 ascorbic acid (vitamin C) 500 mg 500 mg PO QDAY 02/05/25 02/05/25 tablet (Vitamin C) Previous Rx's ?Medication ?Instructions ?Recorded ondansetron 4 mg disintegrating 4 mg PO Q8H PRN nausea and 02/22/24 tablet vomiting #30 tabs lidocaine HCl 2 % mucosal solution 5 ml PO TIDPC PRN dyspepsia #300 mL 07/02/24 (Lidocaine Viscous) sucralfate 100 mg/mL oral 10 ml PO TID #500 mL 07/02/24 suspension (Carafate) magnesium hydroxide 2,400 mg/10 mL 30 ml PO QDAY PRN constipation #60 01/22/25 oral suspension (Milk Of Magnesia mL Concentrated) sennosides 8.6 mg-docusate sodium 2 tab-cap (2 x 8.6-50 mg) PO QDAY 01/22/25 50 mg tablet (Senokot-S) PRN constipation #20 tabs duloxetine 60 mg capsule,delayed 60 mg PO QDAY #30 caps 02/14/25 release (Cymbalta) ferrous sulfate 325 mg (65 mg 325 mg PO QOD #30 tabs 02/14/25 iron) tablet,delayed release ondansetron 4 mg disintegrating 4 mg PO Q8H PRN nausea and 02/26/25 tablet vomiting #10 tabs polyethylene glycol 3350 17 4 g PO QDAY #510 grams 02/26/25 gram/dose oral powder (Miralax) Allergies Allergy/AdvReac Type Severity Reaction Status Date / Time amoxicillin (From Augmentin) Allergy Severe Hives Verified 02/27/25 06:29 aspirin Allergy Severe Abdominal Verified 02/27/25 06:29 Pain ciprofloxacin (From Cipro) Allergy Severe Gastrointestinal Verified 02/27/25 06:29 Upset clavulanic acid (From Allergy Severe Hives Verified 02/27/25 06:29 Augmentin) codeine Allergy Severe Nausea Verified 02/27/25 06:29 fluconazole Allergy Severe Rash Verified 02/27/25 06:29 gabapentin Allergy Severe Abdominal Verified 02/27/25 06:29 Pain ketorolac (From Toradol) Allergy Severe Abdominal Verified 02/27/25 06:29 Pain nalbuphine Allergy Severe Abdominal Verified 02/27/25 06:29 Pain Sulfa (Sulfonamide Allergy Severe Hives Verified 02/27/25 06:29 Antibiotics) tizanidine Allergy Severe Rash Verified 02/27/25 06:29 tramadol Allergy Severe Rash Verified 02/27/25 06:29 Review of Systems Review of Systems Systems Reviewed: All systems reviewed, normal except as documented ED Exam Narrative Physical exam: GENERAL APPEARANCE: alert and oriented x 4, well-developed, well-nourished, no acute distress VITALS: All vitals were reviewed and the pulse ox is 93% on room air, which is normal according to my interpretation. HEENT: Normocephalic, abrasion at the left temporal region; pupils equal, round, reactive to light; EOMI; mucous membranes pink, moist; oropharynx clear NECK: Supple; tenderness at the region on C3 LUNGS: CTABL; no wheezes, no rales, no rhonchi HEART: Regular rate, regular rhythm; normal S1, S2; no murmurs ABDOMEN: non distended; normal BS; soft, no tenderness, no guarding, no rebound; no masses, no organomegaly, no hernia BACK: no CVA tenderness EXTREMITIES: atraumatic; no edema NEUROLOGIC: awake; alert and oriented x4; cranial nerves II-XII grossly intact; no focal sensory or motor deficits PSYCHIATRIC: appropriate mood and affect SKIN: warm, dry, normal color; no rashes Course Quality Measures none Orders Category Date Time Status CT cervical spine wo con Stat Exams 02/28/25 04:[address] head/brain wo con Stat Exams 02/28/25 04:38 Completed Vital Signs Vital signs: Vital Signs Temperature 98.2 F 02/28/25 04:14 Pulse Rate 88 02/28/25 04:14 Respiratory Rate 18 02/28/25 04:14 Blood Pressure 156/82 H 02/28/25 04:14 Pulse Oximetry (%) 93 L 02/28/25 04:14 Oxygen Delivery Method Room Air 02/28/25 04:14 Fall [facility] Narrative MDM Narrative:: Scribe Attestation: 02/28/25 - Alyse Ivy am scribing for and in the presence of Dr. Santana. Patient data External records reviewed:: [facility] previous records (Per chart review, patient was seen here yesterday for C. difficile enteritis.) and EMS form Clinical information provided by:: patient Social determinants that could affect healthcare access:: none Patient has the following chronic illnesses:: aFib on Eliquis, HTN, DM, hypothyroidism,IBS, duodenal ulcer, diverticulosis (admitted 02/05/2025 - 02/14/2025 for diverticulosis requiring IV antibiotics How is presenting disease/condition affected by chronic disease/condition?: uneffected by Evaluation data The following diagnostics were reviewed and interpreted by me:: radiology exam(s) Lab and/or radiology exams considered but not ordered:: none Interpretation Summary: [facility] Preliminary Report Draft Patient: MARIBEL ALAMO [facility]. Record#: [id number] Birthdate: 1945 Age/Sex: 79 / F Location: [facility] Attending Dr: Ordering Physician: Date of Service: Procedure(s): Accession Number(s): cc: ~ CT scan of the cervical spine without intravenous contrast (axial sections with sagittal and coronal reformats) February 28, 2025 0454 hours Clinical History: Neck pain post fall Comparison: None. Findings: There is no fracture or subluxation. The prevertebral soft tissues are unremarkable. Loss of the physiologic cervical lordosis. Degenerative changes of the imaged portions of the spine. Chronic multilevel disc disease. Vascular calcifications. Impression: No evidence of fracture or subluxation. Report Electronically Signed By: Charan Hernández 02/28/2025 5:25:36 AM [facility] Preliminary Report Draft Patient: MARIBEL ALAMO [facility]. Record#: [id number] Birthdate: 1945 Age/Sex: 79 / F Location: [facility] Attending Dr: Ordering Physician: Date of Service: Procedure(s): Accession Number(s): cc: ~ CT scan of the head without intravenous contrast (axial sections with sagittal and coronal reformats) February 28, 2025 0454 hours Clinical History: Fall. Comparison: None. Findings: There is no evidence of intracranial hemorrhage, mass effect or midline shift. There are periventricular white matter hypodensities, compatible with chronic small vessel ischemia. There is severe volume loss. The calvarium is intact. The mastoid air cells and the visualized paranasal sinuses are clear. Impression: No evidence of intracranial hemorrhage, midline shift or calvarial fracture. Periventricular chronic small vessel ischemia and volume loss. Report Electronically Signed By: Charan Hernández 02/28/2025 5:26:17 AM Medications / Prescriptions Medications or Prescriptions considered but not ordered:: none Medication administrations:: none Consultations Consultation(s) initiated? (list below): No Diagnosis Fall Differential Diagnosis: other (ICH, contusion, abrasion) Most likely diagnosis given after review of the tests above:: see clinical impression below Admission Indicated Admission indicated?: not indicated Explain why admission is indicated or not indicated:: With no condition needing emergent intervention, there was no indication for admission. Admission Request Was there a request for admission?: No Disposition Plan Disposition Plan: Discharge Discharge Attestation Discharge Attestation: The patient and all family members were given an opportunity to ask questions and understood the discharge instructions. Discharge instructions specifically effects, indications for sooner follow up or return to the emergency department, and the expected course of current diagnosis. Patient condition: Stable Discharge Plan Plan Patient Disposition: HOME (Self Care) Prescriptions/Referrals Prescriptions/Med Rec: No Action metformin 500 mg Tablet 500 mg PO DAILY acetaminophen 500 mg Tablet 500 mg PO PRN MDD 4 PRN (Reason: Pain) levothyroxine 50 mcg Tablet 50 mcg PO DAILY cholecalciferol (vitamin D3) [Vitamin D3] 25 mcg (1,000 unit) Tablet 25 mcg PO 1XD Align (B.infantis) 4 mg Capsule 4 mg PO DAILY loperamide 2 mg capsule 2 mg PO QDAY alprazolam 0.5 mg tablet 0.5 mg PO BID PRN (Reason: Anxiety) Patient Comments: TAKE 1 TABLET BY MOUTH THREE TIMES DAILY NEEDED FOR ANXIETY pantoprazole 40 mg tablet,delayed release (DR/EC) 40 mg PO BID Patient Comments: TAKE 1 TABLET BY MOUTH DAILY benazepril 20 mg tablet 20 mg PO QDAY ondansetron 4 mg tablet,disintegrating 4 mg PO Q8H PRN (Reason: nausea and vomiting) Qty: 30 0RF lidocaine HCl [Lidocaine Viscous] 2 % solution 5 ml PO TIDPC MDD 15 mL PRN (Reason: dyspepsia) Qty: 300 0RF sucralfate [Carafate] 100 mg/mL suspension 10 ml PO TID Qty: 500 0RF Rx Instructions: swish in mouth and swallow; use after food/drink ondansetron 4 mg tablet,disintegrating 4 mg PO Q8H PRN (Reason: nausea and vomiting) Qty: 10 0RF Eliquis 5 mg Tablet 5 mg PO QDAY sennosides-docusate sodium [Senokot-S] 8.6-50 mg tablet 2 tab-cap PO QDAY PRN (Reason: constipation) Qty: 20 0RF magnesium hydroxide [Milk Of Magnesia Concentrated] 2,400 mg/10 mL suspension 30 ml PO QDAY PRN (Reason: constipation) Qty: 60 0RF ascorbic acid (vitamin C) [Vitamin C] 500 mg tablet 500 mg PO QDAY alprazolam [Xanax] 0.5 mg tablet 0.5 mg PO TID PRN (Reason: anxiety) duloxetine [Cymbalta] 60 mg capsule,delayed release(DR/EC) 60 mg PO QDAY Qty: 30 0RF ferrous sulfate 325 mg (65 mg iron) Tablet,Delayed Release (Dr/Ec) 325 mg PO QOD Qty: 30 0RF polyethylene glycol 3350 [Miralax] 17 gram/dose powder 4 g PO QDAY Qty: 510 0RF Problem List Clinical Impression: Accidental fall from bed, Head contusion Patient/Caregiver Discharge Instructions Education Materials: ED Head Injury (Adult) Print Language: Uzbek Stand Alone Forms: [facility] Award Info., Patient Portal Info Letter
--- NOTE | 2025-02-28 05:26 | PRELIM_ITS ---
CT scan of the cervical spine without intravenous contrast (axial sections with sagittal and coronal reformats) February 28, 2025 0454 hours Clinical History: Neck pain post fall Comparison: None. Findings: There is no fracture or subluxation. The prevertebral soft tissues are unremarkable. Loss of the physiologic cervical lordosis. Degenerative changes of the imaged portions of the spine. Chronic multilevel disc disease. Vascular calcifications. Impression: No evidence of fracture or subluxation. Report Electronically Signed By: Charan Hernández 02/28/2025 5:25:36 AM [EST]
--- NOTE | 2025-02-28 05:26 | PRELIM_ITS ---
CT scan of the head without intravenous contrast (axial sections with sagittal and coronal reformats) February 28, 2025 0454 hours Clinical History: Fall. Comparison: None. Findings: There is no evidence of intracranial hemorrhage, mass effect or midline shift. There are periventricular white matter hypodensities, compatible with chronic small vessel ischemia. There is severe volume loss. The calvarium is intact. The mastoid air cells and the visualized paranasal sinuses are clear. Impression: No evidence of intracranial hemorrhage, midline shift or calvarial fracture. Periventricular chronic small vessel ischemia and volume loss. Report Electronically Signed By: Charan Hernández 02/28/2025 5:26:17 AM [EST]
[2025-02-28 06:15] VITALS: RESP 18
== END 2025-02-28 06:15 | disposition home or self-care (01) ==
LOC: SERX 06:21
PROVIDERS: Emergency Provider Emergency Medicine; PCP Family Medicine
DX: S00.93XA Contusion of unspecified part of head, initial encounter (principal); W06.XXXA Fall from bed, initial encounter
CPT/HCPCS: 70450; 72125; 99283

== ENCOUNTER 2025-03-11 09:11 | Emergency (ER) | payer MEDICARE, BC, SELFPAY ==
[2025-03-11] VITALS (20 sets, daily range): BP systolic 158–189; BP diastolic 67–88; PULSE 63–91; RESP 15–26; TEMP 36.4–37; O2SAT 95–99; BMI 31.2
--- NOTE | 2025-03-11 09:24 | PD.EDRME ---
Rapid Medical Screening Exam E Arrival date/time: 03/11/25 09:11 79-year-old female presents to the emergency department a complaint of abdominal pain diarrhea and bloating. Patient reports recent history of C. difficile patient reports took 14 days of vancomycin. Chief Complaint: Abdominal Pain Vital signs: Vital Signs Temperature 97.6 F 03/11/25 09:15 Pulse Rate 91 03/11/25 09:15 Respiratory Rate 18 03/11/25 09:15 Blood Pressure 158/88 H 03/11/25 09:15 Pulse Oximetry (%) 95 03/11/25 09:15 Oxygen Delivery Method Room Air 03/11/25 09:15
[2025-03-11 10:00] LABS: Basophils # (Auto) 0.1 Thou/mm3 (0.0-0.2); Basophils % (Auto) 1 % (0-2.5); Eosinophils # (Auto) 0.1 Thou/mm3 (0.0-0.5); Eosinophils % (Auto) 1 % (0-10); Hematocrit 34.1 % (36.0-46.0); Hemoglobin 10.7 g/dL (12.0-16.0); Immature Granulocytes Auto 0.02 Thou/mm3 (0.00-0.00); Lymphocytes # (Auto) 2.5 Thou/mm3 (1.0-4.8); Lymphocytes % (Auto) 32 % (10-50); Mean Corpuscular HGB Conc 31.4 g/dl (31.0-37.0); Mean Corpuscular Hemoglobin 26.3 pg (25.0-35.0); Mean Corpuscular Volume 84 fL (80-100); Monocytes # (Auto) 0.7 Thou/mm3 (0.0-0.8); Monocytes % (Auto) 9 % (0-12); Neutrophils # (Auto) 4.5 Thou/mm3 (1.8-7.7); Neutrophils % (Auto) 57 % (37-80); Nucleated Red Blood Cell # 0.00 Thou/mm3 (0.00-0.00); Nucleated Red Blood Cell % 0 /100 WBC (0); Platelet Count 312 Thou/mm3 (140-440); RDW Standard Deviation 53.3 fL (36.4-46.3); Red Blood Count 4.07 Miln/mm3 (4.00-5.20); White Blood Count 7.8 Thou/mm3 (3.6-11.0)
[2025-03-11 10:29] LABS: INR 1.0 (0.9-1.3); Prothrombin Time 10.6 Seconds (9.0-12.2)
--- NOTE | 2025-03-11 10:38 | PD.EDABDPN ---
ED Abdominal Pain RME/HPI General Chief Complaint: Abdominal Pain Stated complaint: ABD PAIN & DIARRHEA Arrival date/time: 03/11/25 09:11 Limitations: no limitations RME / HPI RME / HPI narrative: 03/11/25 09:11 79-year-old female presents to the emergency department a complaint of abdominal pain diarrhea and bloating. Patient reports recent history of C. difficile patient reports took [address] PEREZ MAIN ED EVALUATION: 79-year-old female with past medical history of diverticulitis, recent Clostridioides difficile infection (completed vancomycin yesterday), and irritable bowel syndrome presents to the Emergency Department with complaint of diffuse abdominal pain starting today. No other symptoms documented at this time. Related Data Home Medications ?Medication ?Instructions ?Recorded ?Confirmed Bifidobacterium infantis 4 mg 4 mg PO DAILY 06/27/23 02/05/25 capsule (Align (B.infantis)) acetaminophen 500 mg tablet 500 mg PO PRN PRN Pain 06/27/23 02/05/25 cholecalciferol (vitamin D3) 25 25 mcg PO 1XD 06/27/23 02/05/25 mcg (1,000 unit) tablet (Vitamin D3) levothyroxine 50 mcg tablet 50 mcg PO DAILY 06/27/23 02/05/25 metformin 500 mg tablet 500 mg PO DAILY 06/27/23 02/05/25 alprazolam 0.5 mg tablet 0.5 mg PO BID PRN Anxiety 10/28/23 02/05/25 benazepril 20 mg tablet 20 mg PO QDAY 10/28/23 02/05/25 loperamide 2 mg capsule 2 mg PO QDAY 10/28/23 02/06/25 pantoprazole 40 mg tablet,delayed 40 mg PO BID 10/28/23 02/05/25 release apixaban 5 mg tablet (Eliquis) 5 mg PO QDAY 06/11/24 02/05/25 alprazolam 0.5 mg tablet (Xanax) 0.5 mg PO TID PRN anxiety 02/05/25 02/05/25 ascorbic acid (vitamin C) 500 mg 500 mg PO QDAY 02/05/25 02/05/25 tablet (Vitamin C) Previous Rx's ?Medication ?Instructions ?Recorded ondansetron 4 mg disintegrating 4 mg PO Q8H PRN nausea and 02/22/24 tablet vomiting #30 tabs lidocaine HCl 2 % mucosal solution 5 ml PO TIDPC PRN dyspepsia #300 mL 07/02/24 (Lidocaine Viscous) sucralfate 100 mg/mL oral 10 ml PO TID #500 mL 07/02/24 suspension (Carafate) magnesium hydroxide 2,400 mg/10 mL 30 ml PO QDAY PRN constipation #60 01/22/25 oral suspension (Milk Of Magnesia mL Concentrated) sennosides 8.6 mg-docusate sodium 2 tab-cap (2 x 8.6-50 mg) PO QDAY 01/22/25 50 mg tablet (Senokot-S) PRN constipation #20 tabs duloxetine 60 mg capsule,delayed 60 mg PO QDAY #30 caps 02/14/25 release (Cymbalta) ferrous sulfate 325 mg (65 mg 325 mg PO QOD #30 tabs 02/14/25 iron) tablet,delayed release ondansetron 4 mg disintegrating 4 mg PO Q8H PRN nausea and 02/26/25 tablet vomiting #10 tabs polyethylene glycol 3350 17 4 g PO QDAY #510 grams 02/26/25 gram/dose oral powder (Miralax) Allergies Allergy/AdvReac Type Severity Reaction Status Date / Time amoxicillin (From Augmentin) Allergy Severe Hives Verified 03/11/25 09:13 aspirin Allergy Severe Abdominal Verified 03/11/25 09:13 Pain ciprofloxacin (From Cipro) Allergy Severe Gastrointestinal Verified 03/11/25 09:13 Upset clavulanic acid (From Allergy Severe Hives Verified 03/11/25 09:13 Augmentin) codeine Allergy Severe Nausea Verified 03/11/25 09:13 fluconazole Allergy Severe Rash Verified 03/11/25 09:13 gabapentin Allergy Severe Abdominal Verified 03/11/25 09:13 Pain ketorolac (From Toradol) Allergy Severe Abdominal Verified 03/11/25 09:13 Pain nalbuphine Allergy Severe Abdominal Verified 03/11/25 09:13 Pain Sulfa (Sulfonamide Allergy Severe Hives Verified 03/11/25 09:13 Antibiotics) tizanidine Allergy Severe Rash Verified 03/11/25 09:13 tramadol Allergy Severe Rash Verified 03/11/25 09:13 Review of Systems Review of Systems Systems Reviewed: All systems reviewed, normal except as documented Past Medical History Past Medical History CARDIAC: Positive Cardiac Disorders, Cardiac Arrhythmia, Atrial Fibrillation, Hypercholesterolemia and Hypertension RESPIRATORY: Positive Asthma, Pneumonia and Sleep Apnea GASTROINTESTINAL: Positive Gastrointestinal Disorders, Gastrointestinal Bleed, Colitis, Ulcerative Colitis, Diverticulitis, Diverticulosis, Ulcer, Irritable Bowel, Obstructive Bowel, Hemorrhoids and Obesity GENITOURINARY: Positive Kidney Stones REPRODUCTIVE: Positive Previous Pregnancies MUSCULOSKELETAL: Positive Musculoskeletal Disorders and Arthritis ENT: Positive Cataracts and Ear Infection ENDOCRINE: Positive Diabetes Mellitus Type 2 and Hypothyroidism PSYCHO/SOCIAL: Positive Anxiety OTHER HISTORY: Positive Falls, Blood Transfusions, Chicken Pox, Mumps and Clostridium Difficile Family History FAMILY HISTORY: Positive Family Cardiac Disorders Surgical History SURGICAL: Positive Cardiac Surgery, Endocrine Surgery, Thyroidectomy, Abdominal Surgery, Joint Replacement, Hysterectomy and Section Social History SMOKING STATUS: Never smoker SUBSTANCE USE: does not use ALCOHOL: Never ED Exam General Limitations: Present no limitations General appearance: Present alert, in no apparent distress, obese and other (looks pale; wears glasses) Head Head exam: Present atraumatic, normocephalic and normal inspection Eye Eye exam: Present normal appearance, PERRL and EOMI ENT ENT exam: Present normal exam, normal oropharynx and mucous membranes moist Neck Neck exam: Present normal inspection, full ROM and trachea midline Chest Chest inspection: Present normal inspection and symmetric chest wall rise Respiratory Respiratory exam: Present normal lung sounds bilaterally Cardiovascular Cardiovascular exam: Present regular rate, normal rhythm and normal heart sounds Abdominal Exam Abdominal exam: Present tenderness (diffuse abdominal tenderness in all quadrants) and normal bowel sounds Extremities Exam Extremities exam: Present normal inspection and full ROM Back Exam Back exam: Present normal inspection and full ROM Neurological Exam Neurological exam: Present alert, oriented X3 and CN II-XII intact Psychiatric Psychiatric exam: Present normal affect and normal mood Skin Skin exam: Present warm, dry, intact and pallor Course Quality Measures none Orders Category Date Time Status CT Screening NOW Care 03/11/25 10:13 Completed [employer] Supervisor STAT Care 03/11/25 10:12 Active Continuous Pulse Oximetry STAT Care 03/11/25 10:12 Completed Insert IV STAT Care 03/11/25 10:12 Active NPO STAT Care 03/11/25 10:[address] abdomen pelvis wo con Stat Exams 03/11/25 14:58 Completed CBC Stat Lab 03/11/25 09:38 Completed Comprehensive Metabolic Panel Stat Lab 03/11/25 09:38 Completed Lipase Stat Lab 03/11/25 09:38 Completed Magnesium Stat Lab 03/11/25 09:38 Completed Prothrombin Time with INR Stat Lab 03/11/25 09:38 Completed Stool Culture Stat Lab 03/11/25 11:52 Received Stool for WBCs Stat Lab 03/11/25 11:52 Completed UA, C/S IF [Urinalysis, C/S if Indicated] Stat Lab 03/11/25 16:34 Completed c diff [Clostridium Difficile PCR] Stat Lab 03/11/25 16:34 Received Acetaminophen Ivpb [Ofirmev Inj] Med 03/11/25 10:33 Discontinued 1,000 mg in 100 ml IV X1 Acetaminophen Tab [Tylenol Tab] Med 03/11/25 17:08 Discontinued 650 mg PO X1 ONE Ondansetron Inj [Zofran Inj] Med 03/11/25 10:13 Discontinued 4 mg IVP X1 ONE Sodium Chloride 0.9% 1000 ml [Ns] 1,000 ml Med 03/11/25 10:12 Discontinued IV 999 mls/hr Vancomycin Inj 1,000 mg Med 03/11/25 14:40 Discontinued Sodium Chloride 0.9% 250 ml [Ns] 250 ml IV X1 Vancomycin cap Med 03/11/25 14:45 Discontinued 250 mg PO X1 ONE Vital Signs Vital signs: Vital Signs Temperature 97.6 F 03/11/25 09:15 Pulse Rate 91 03/11/25 09:15 Respiratory Rate 18 03/11/25 09:15 Blood Pressure 158/88 H 03/11/25 09:15 Pulse Oximetry (%) 95 03/11/25 09:15 Oxygen Delivery Method Room Air 03/11/25 09:15 Abdominal Pain MDM MDM Narrative MDM Narrative:: ISandra am scribing for and in the presence of Dr. Perez. C diff. still is pending, patient advised to follow-up with her PCP for results. Patient data External records reviewed:: [facility] previous records Clinical information provided by:: patient Social determinants that could affect healthcare access:: none Patient has the following chronic illnesses:: diverticulitis, recent Clostridioides difficile infection (completed vancomycin yesterday), and irritable bowel syndrome How is presenting disease/condition affected by chronic disease/condition?: caused by Evaluation data The following diagnostics were reviewed and interpreted by me:: lab results and radiology exam(s) Lab and/or radiology exams considered but not ordered:: none Interpretation Summary: Procedure(s): CT abdomen pelvis wo [facility] Accession Number(s): [id number] cc: Ruben Perez MD; Miles Navas MD; Tyrone Langford MD~ Examination: CT abdomen and pelvis without contrast. Coronal 3-D reconstructions. Sagittal 2-D reconstructions. Date and time of exam:March 11, 2025, 1511 hours Comparison February 27, 2025 INDICATIONS: Abdominal pain today, diagnosis C. Difficile CTDI: vol (mGy): 10.1 DLP: (mGycm): 521 Technique: Axial images of the abdomen have been obtained, 3 mm slice thickness Intravenous contrast material has not been administered. Low dose protocols were performed. One or more of the following dose reduction techniques were used; automated exposure control, adjustment of the mA and/or KV according to patient size, use of iterative reconstruction technique. Findings: No focal liver or splenic lesions No gallstones No pancreatic or adrenal mass. No renal or ureteral calculi, small bilateral renal cysts Aorta normal size No pericecal inflammatory change No colitis pattern on this noncontrast study Colonic diverticulosis, no diverticulitis No bladder mass No pelvic mass Transpedicular lumbar stabilization L5-S1 Right hip hemiarthroplasty with satisfactory alignment IMPRESSION: No renal or ureteral calculi, no hydronephrosis Negative for appendicitis Negative for colitis on this noncontrast study No CT findings of appendicitis or bowel obstruction Dictated By: Miles Navas MD Medications / Prescriptions Medications or Prescriptions considered but not ordered:: none Medication administrations:: Medication Administration History Discontinued Medications Acetaminophen (Acetaminophen 325 Mg Tablet) 650 mg PO X1 ONE Stop: 03/11/25 17:09 Last Admin: 03/11/25 17:14 Dose: 650 mg Documented By: VINAY Sodium Chloride (Ns) 1,000 mls @ 999 mls/hr IV .Q1H1M ONE Stop: 03/11/25 11:12 Last Infusion: 03/11/25 13:21 Dose: 0 mls/hr Documented By: Admin: 03/11/25 12:37 Dose: 999 mls/hr Documented By: VINAY Acetaminophen (Ofirmev Inj) 1,000 mg in 100 mls @ 250 mls/hr IV X1 ONE Stop: 03/11/25 10:56 Last Infusion: 03/11/25 12:58 Dose: Infused Documented By: Admin: 03/11/25 12:34 Dose: 250 mls/hr Documented By: VINAY Vancomycin HCl 1,000 mg/ (Sodium Chloride) 250 mls @ 150 mls/hr IV X1 ONE Stop: 03/11/25 16:19 Last Admin: 03/11/25 17:01 Dose: Not Given Documented By: VINAY Non-Admin Reason: Discontinued Ondansetron HCl (Ondansetron Inj 2 Mg/Ml Inj 2 Ml) 4 mg IVP X1 ONE Stop: 03/11/25 10:14 Last Admin: 03/11/25 12:31 Dose: 4 mg Documented By: VINAY Vancomycin HCl (Vancomycin 125 Mg Capsule) 250 mg PO X1 ONE Stop: 03/11/25 14:46 Last Admin: 03/11/25 16:01 Dose: 250 mg Documented By: VINAY see above Consultations Consultation(s) initiated? (list below): No Diagnosis Differential diagnosis abdominal pain: other (recurrent C. difficile colitis, diverticulitis flare, post-infectious irritable bowel syndrome) Most likely diagnosis given after review of the tests above:: Abdominal pain Irritable bowel syndrome C diff. enteritis Admission Indicated Admission indicated?: not indicated Admission Request Was there a request for admission?: No Disposition Plan Disposition Plan: Discharge Discharge Attestation Discharge Attestation: The patient and all family members were given an opportunity to ask questions and understood the discharge instructions. Discharge instructions specifically effects, indications for sooner follow up or return to the emergency department, and the expected course of current diagnosis. Patient condition: Stable Discharge Plan Plan Patient Disposition: HOME (Self Care) Patient condition on transfer: Stable Prescriptions/Referrals Prescriptions/Med Rec: No Action metformin 500 mg Tablet 500 mg PO DAILY acetaminophen 500 mg Tablet 500 mg PO PRN MDD 4 PRN (Reason: Pain) levothyroxine 50 mcg Tablet 50 mcg PO DAILY cholecalciferol (vitamin D3) [Vitamin D3] 25 mcg (1,000 unit) Tablet 25 mcg PO 1XD Align (B.infantis) 4 mg Capsule 4 mg PO DAILY loperamide 2 mg capsule 2 mg PO QDAY alprazolam 0.5 mg tablet 0.5 mg PO BID PRN (Reason: Anxiety) Patient Comments: TAKE 1 TABLET BY MOUTH THREE TIMES DAILY NEEDED FOR ANXIETY pantoprazole 40 mg tablet,delayed release (DR/EC) 40 mg PO BID Patient Comments: TAKE 1 TABLET BY MOUTH DAILY benazepril 20 mg tablet 20 mg PO QDAY ondansetron 4 mg tablet,disintegrating 4 mg PO Q8H PRN (Reason: nausea and vomiting) Qty: 30 0RF lidocaine HCl [Lidocaine Viscous] 2 % solution 5 ml PO TIDPC MDD 15 mL PRN (Reason: dyspepsia) Qty: 300 0RF sucralfate [Carafate] 100 mg/mL suspension 10 ml PO TID Qty: 500 0RF Rx Instructions: swish in mouth and swallow; use after food/drink ondansetron 4 mg tablet,disintegrating 4 mg PO Q8H PRN (Reason: nausea and vomiting) Qty: 10 0RF Eliquis 5 mg Tablet 5 mg PO QDAY sennosides-docusate sodium [Senokot-S] 8.6-50 mg tablet 2 tab-cap PO QDAY PRN (Reason: constipation) Qty: 20 0RF magnesium hydroxide [Milk Of Magnesia Concentrated] 2,400 mg/10 mL suspension 30 ml PO QDAY PRN (Reason: constipation) Qty: 60 0RF ascorbic acid (vitamin C) [Vitamin C] 500 mg tablet 500 mg PO QDAY alprazolam [Xanax] 0.5 mg tablet 0.5 mg PO TID PRN (Reason: anxiety) duloxetine [Cymbalta] 60 mg capsule,delayed release(DR/EC) 60 mg PO QDAY Qty: 30 0RF ferrous sulfate 325 mg (65 mg iron) Tablet,Delayed Release (Dr/Ec) 325 mg PO QOD Qty: 30 0RF polyethylene glycol 3350 [Miralax] 17 gram/dose powder 4 g PO QDAY Qty: 510 0RF Referrals: Tyrone Langford MD [Primary Care Provider] - In 1 week Problem List Clinical Impression: Abdominal pain, Irritable bowel syndrome, C. difficile enteritis Patient/Caregiver Discharge Instructions Additional Instructions: C diff. results are still pending, please follow-up with your PCP for results. Please follow-up with your primary care physician within 2-3 days. Return to the Emergency Department as needed. Print Language: Turkmen Stand Alone Forms: [employer] Award Info., Patient Portal Info Letter
[2025-03-11 10:55] LABS: Alanine Aminotransferase 10 U/L (10-49); Albumin, Serum 4.7 gm/dL (3.4-4.8); Albumin/Globulin Ratio 1.4 (1.2-2.2); Alkaline Phosphatase 86 U/L (46-116); Anion Gap 13 (7-16); Aspartate Amino Transferase 17 U/L (0-34); BUN/Creatinine Ratio 12 Ratio (12-20); Bilirubin,Total 0.2 mg/dL (0.3-1.2); Blood Urea Nitrogen 15 mg/dL (9-23); Calcium 9.6 mg/dL (8.3-10.6); Calcium (Corrected) 9.6 mg/dL (8.5-10.1); Carbon Dioxide 24.1 mMol/L (20.0-31.0); Chloride 102 mMol/L (98-107); Creatinine (Component) 1.3 mg/dL (0.6-1.3); Estimated Creatinine Clearance 31.7 mL/min (>60); Globulin 3.3 gm/dL (2.3-3.5); Glucose 160 mg/dL (74-106); Lipase 29 U/L (12-53); Magnesium 1.7 mg/dL (1.6-2.6); Osmolality,Calculated 281 (275-295); Potassium 4.4 mMol/L (3.4-5.1); Sodium 139 mMol/L (136-145); Total Protein 8.0 gm/dL (5.7-8.2); eGFR 42 See Note
[2025-03-11] MEDS: ONDANSETRON INJ 2 MG/ML INJ 2 ML 4 MG IVP (12:31)
[2025-03-11] MEDS: ACETAMINOPHEN IVPB 1,000 MG/100 ML VIAL 250 MG IV (12:34)
[2025-03-11] MEDS: SODIUM CHLORIDE 0.9% 1000 ML 1,000 ML 999 ML IV (12:37)
[2025-03-11 13:53] LABS: Stool for WBCs Few (Negative)
--- NOTE | 2025-03-11 14:58 | XR_ITS ---
Examination: CT abdomen and pelvis without contrast. Coronal 3-D reconstructions. Sagittal 2-D reconstructions. Date and time of exam:March 11, 2025, 1511 hours Comparison February 27, 2025 INDICATIONS: Abdominal pain today, diagnosis C. Difficile CTDI: vol (mGy): 10.1 DLP: (mGycm): 521 Technique: Axial images of the abdomen have been obtained, 3 mm slice thickness Intravenous contrast material has not been administered. Low dose protocols were performed. One or more of the following dose reduction techniques were used; automated exposure control, adjustment of the mA and/or KV according to patient size, use of iterative reconstruction technique. Findings: No focal liver or splenic lesions No gallstones No pancreatic or adrenal mass. No renal or ureteral calculi, small bilateral renal cysts Aorta normal size No pericecal inflammatory change No colitis pattern on this noncontrast study Colonic diverticulosis, no diverticulitis No bladder mass No pelvic mass Transpedicular lumbar stabilization L5-S1 Right hip hemiarthroplasty with satisfactory alignment IMPRESSION: No renal or ureteral calculi, no hydronephrosis Negative for appendicitis Negative for colitis on this noncontrast study No CT findings of appendicitis or bowel obstruction
[2025-03-11] MEDS: VANCOMYCIN 125 MG CAPSULE 250 MG PO (16:01)
[2025-03-11 16:46] LABS: Collection Type, Urine Clean Catch
[2025-03-11 16:53] LABS: Bilirubin,Urine Negative (Negative); Blood,Urine Negative (Negative); Clarity,Urine Clear (Clear/Hazy); Color,Urine Lt-Yellow (Lt Yel-Yel); Culture Indicated,Urine Not Indicated; Glucose, Urine Negative (Negative); Ketones,Urine Negative (Negative); Leukocyte Esterase,Urine Negative (Negative); Nitrite,Urine Negative (Negative); PH,Urine 7.0 (5.0-7.0); Protein,Urine Negative (Neg - Trace); RBC,Urine 1 /hpf (0-3); Specific Gravity,Urine 1.008 (1.001-1.035); Squamous Epithelial Cell,Urine < 1 /hpf (0-5); Urobilinogen,Urine Negative mg/dL (0.0-1.0); WBC,Urine 1 /hpf (0-5)
[2025-03-11] MEDS: ACETAMINOPHEN 325 MG TABLET 650 MG PO (17:14)
== END 2025-03-11 18:00 | disposition home or self-care (01) ==
PROVIDERS: Nurse Practitioner Primary Care; Emergency Provider Family Medicine; PCP Family Medicine
DX: K58.0 Irritable bowel syndrome with diarrhea (principal); A04.72 Enterocolitis due to Clostridium difficile, not specified as recurrent
CPT/HCPCS: 36415; 74176; 80053; 81001; 83690; 83735; 85025; 85610; 87015; 87045; 87046; 87077; 87205; 87493; 87899; 96365; 96375; 99283; J0131; J2405; J7030; A9270

== ENCOUNTER 2025-03-17 16:10 | Emergency (ER) | payer MEDICARE, BC, SELFPAY ==
[2025-03-17 16:25] VITALS: BP 171/81; PULSE 98; RESP 18; TEMP 36.6; O2SAT 95; BMI 30.5
[2025-03-17] MEDS: HYDROcodone/APAP 5/325 TABLET 1 TAB PO (16:53)
--- NOTE | 2025-03-17 17:45 | EDNOTE_ITS ---
<Statement entered by Jenniffer Santana MD - 03/25/25 06:24> As co-signing physician, I was present and available for consult prn. I concur with the plan and care as documented by the midlevel provider. ED Abdominal Pain RME/HPI General Chief Complaint: Abdominal Pain Stated complaint: Abdominal pain from Vancomycin Time seen by provider: 03/17/25 16:23 Arrival date/time: 03/17/25 16:10 79-year-old female with a history of hypertension, C. difficile, type 2 diabetes presents to the emergency room with a chief complaint of abdominal cramping. Patient states she has been treated for C. difficile and being on the antibiotics is causing her a lot of abdominal cramping. Source: patient Mode of arrival: ambulatory Limitations: no limitations Related Data Home Medications ?Medication ?Instructions ?Recorded ?Confirmed Bifidobacterium infantis 4 mg 4 mg PO DAILY 06/27/23 0 02/05/25 capsule (Align (B.infantis)) acetaminophen 500 mg tablet 500 mg PO PRN PRN Pain 02/05/25 cholecalciferol (vitamin D3) 25 25 mcg PO 1XD 06/27/23 02/05/25 mcg (1,000 unit) tablet (Vitamin D3) levothyroxine 50 mcg tablet 50 mcg PO DAILY 06/27/23 0 02/05/25 metformin 500 mg tablet 500 mg PO DAILY 06/27/23 alprazolam 0.5 mg tablet 0.5 mg PO BID PRN Anxiety 02/05/25 benazepril 20 mg tablet 20 mg PO QDAY 10/28/2302/05 loperamide 2 mg capsule 2 mg PO QDAY 10/28/23 pantoprazole 40 mg tablet,delayed 40 mg PO BID 4 02/05/25 release apixaban 5 mg tablet (Eliquis) 5 mg PO QDAY 06/11/24 0 02/05/25 alprazolam 0.5 mg tablet (Xanax) 0.5 mg PO TID PRN anx iety 02/05/25 02/05/25 ascorbic acid (vitamin C) 500 mg 500 mg PO QDAY 02/05/25 tablet (Vitamin C) Previous Rx's ?Medication ?Instructions ?Recorded ondansetron 4 mg disintegrating 4 mg PO Q8H PRN nausea and 02/22/24 tablet vomiting #30 tabs lidocaine HCl 2 % mucosal solution 5 ml PO TIDPC PRN d yspepsia #300 mL 07/02/24 (Lidocaine Viscous) sucralfate 100 mg/mL oral 10 ml PO TID #500 mL 4 suspension (Carafate) magnesium hydroxide 2,400 mg/10 mL 30 ml PO QDAY PRN c onstipation #60 01/22/25 oral suspension (Milk Of Magnesia mL Concentrated) sennosides 8.6 mg-docusate sodium 2 tab-cap (2 x 8.6-5 0 mg) PO QDAY 01/22/25 50 mg tablet (Senokot-S) PRN constipation #20 tabs duloxetine 60 mg capsule,delayed 60 mg PO QDAY #30 cap s 02/14/25 release (Cymbalta) ferrous sulfate 325 mg (65 mg 325 mg PO QOD #30 tabs 0 02/14/25 iron) tablet,delayed release ondansetron 4 mg disintegrating 4 mg PO Q8H PRN nausea and 02/26/25 tablet vomiting #10 tabs polyethylene glycol 3350 17 4 g PO QDAY #510 grams gram/dose oral powder (Miralax) Allergies Allergy/AdvReac Type Severity Reaction Status Date / Time amoxicillin (From Augmentin) Allergy Severe Hives Verified 03/17/25 16:16 aspirin Allergy Severe Abdominal Verified 03/17/25 16:16 Pain ciprofloxacin (From Cipro) Allergy Severe Gastrointestinal Verified 03/17/25 16:16 Upset clavulanic acid (From Allergy Severe Hives Verified 03/17/25 16:16 Augmentin) codeine Allergy Severe Nausea Verified 03/17/25 16:16 fluconazole Allergy Severe Rash Verified 03/17/25 16:16 gabapentin Allergy Severe Abdominal Verified 03/17/25 16:16 Pain ketorolac (From Toradol) Allergy Severe Abdominal Verified 03/17/25 16:16 Pain nalbuphine Allergy Severe Abdominal Verified 03/17/25 16:16 Pain Sulfa (Sulfonamide Allergy Severe Hives Verified 03/17/25 16:16 Antibiotics) tizanidine Allergy Severe Rash Verified 08/08/25 16:16 tramadol Allergy Severe Rash Verified 03/17/25 16:16 Review of Systems Review of Systems Systems Reviewed: All systems reviewed, normal except as documented Constitutional Constitutional: Reports system reviewed and no additional complaints, except as documented, Denies fatigue, Denies fever(s), Denies headache(s) and Denies weakness Eyes Eyes: Reports system reviewed and no additional complaints, except as documented, Denies blurry vision and Denies change in vision ENT Ears, Nose, Mouth, and Throat: Reports system reviewed and no additional complaints, except as documented, Denies otalgia, Denies headache(s), Denies nasal congestion, Denies throat swelling and Denies vertigo Cardiovascular Cardiovascular: Reports system reviewed and no additional complaints, except as documented, Denies chest pain, Denies dyspnea and Denies dyspnea on exertion Respiratory Respiratory: Reports system reviewed and no additional complaints, except as documented, Denies chest congestion, Denies cough, Denies dyspnea, Denies dyspnea on exertion and Denies wheezing Gastrointestinal Gastrointestinal: Reports system reviewed and no additional complaints, except as documented, Reports abdominal pain, Reports cramping, Denies nausea and Denies vomiting Genitourinary Genitourinary: Reports system reviewed and no additional complaints, except as documented Musculoskeletal Musculoskeletal: Reports system reviewed and no additional complaints, except as documented and Denies back pain Integumentary/Breasts Skin/Breast: Reports system reviewed and no additional complaints, except as documented and Denies wounds Neurologic Neurologic: Reports system reviewed and no additional complaints, except as documented, Denies confusion, Denies headache(s), Denies lack of coordination, Denies vertigo and Denies weakness Psychiatric Psychiatric: Reports system reviewed and no additional complaints, except as documented, Denies anxiety, Denies confusion, Denies depression, Denies paranoia, Denies suicidal ideation and Denies tactile hallucinations Endocrine Endocrine: Reports system reviewed and no additional complaints, except as documented and Denies fatigue Hematologic/Lymphatic Hematologic/Lymphatic: Reports system reviewed and no additional complaints, except as documented and Denies lymphadenopathy Allergic/Immunologic Allergic/Immunologic: Reports system reviewed and no additional complaints, except as documented, Denies throat swelling, Denies urticaria and Denies wheezing ED Exam General Limitations: Present no limitations General appearance: Present alert and in no apparent distress Head Head exam: Present atraumatic Eye Eye exam: Present normal appearance, PERRL and EOMI ENT ENT exam: Present normal exam, normal oropharynx and mucous membranes moist Neck Neck exam: Present normal inspection, full ROM and trachea midline Chest Chest inspection: Present normal inspection and symmetric chest wall rise Respiratory Respiratory exam: Present normal lung sounds bilaterally Cardiovascular Cardiovascular exam: Present regular rate, normal rhythm and normal heart sounds Abdominal Exam Abdominal exam: Present soft and normal bowel sounds; Absent distention, t enderness, guarding or rebound Extremities Exam Extremities exam: Present normal inspection and full ROM Back Exam Back exam: Present normal inspection and full ROM Neurological Exam Neurological exam: Present alert, oriented X3 and CN II-XII intact Psychiatric Psychiatric exam: Present normal affect and normal mood Skin Skin exam: Present warm, dry, intact and normal color Course Quality Measures none Orders Category Date Time Status HYDROcodone*/APAP 5/325 [Colt 5/325] Med 03/17/25 16:37 Discontinued 1 tab PO X1 ONE Vital Signs Vital signs: Vital Signs Temperature 98 F 03/17/25 16:25 Pulse Rate 98 03/17/25 16:25 Respiratory Rate 18 03/17/25 16:25 Blood Pressure 171/81 H 03/17/25 16:25 Pulse Oximetry (%) 95 03/17/25 16:25 Oxygen Delivery Method Room Air 03/17/25 16:25 Abdominal Pain MDM MDM Narrative MDM Narrative:: 79-year-old female with a history of hypertension, C. difficile, type 2 diabetes presents to the emergency room with a chief complaint of abdominal cramping. Patient states she has been treated for C. difficile and being on the antibiotics is causing her a lot of abdominal cramping. Patient is hemodynamically stable and in no apparent distress Patient told me that the patient has recently had a full workup and was negative. Patient states her cramping is due to her antibiotic medication and her primary care provider is titrating it to help her with the symptoms. Patient states she is just here for pain medication as she will follow-up with her primary care provider on Thursday and get a prescription. Patient was discharged and educated to follow-up with primary care provider in the next 24 to 48 hours and return to the emergency room for any evidence of worsening signs or symptoms Patient data External records reviewed:: [facility] previous records Clinical information provided by:: patient Social determinants that could affect healthcare access:: none Patient has the following chronic illnesses:: No chronic illness How is presenting disease/condition affected by chronic disease/condition?: no chronic disease Evaluation data The following diagnostics were reviewed and interpreted by me:: lab results and radiology exam(s) Lab and/or radiology exams considered but not ordered:: Labs and radiology exams considered and ordered Interpretation Summary: N/A Medications / Prescriptions Medications or Prescriptions considered but not ordered:: Medication given Medication administrations:: Medication Administration History Discontinued Medications Hydrocodone Bitart/Acetaminophen (Hydrocodone/Apap 5/325 Tablet) 1 tab PO X1 ONE Stop: 03/17/25 16:38 Last Admin: 03/17/25 16:53 Dose: 1 tab Documented By: OA Medication given Consultations Consultation(s) initiated? (list below): No Diagnosis Differential diagnosis abdominal pain: abdominal pain, constipation, diverticul itis and gastroenteritis Most likely diagnosis given after review of the tests above:: Abdominal pain Admission Indicated Admission indicated?: not indicated Admission Request Was there a request for admission?: No Disposition Plan Disposition Plan: Discharge Discharge Attestation Discharge Attestation: The patient and all family members were given an opportunity to ask questions and understood the discharge instructions. Discharge instructions specifically effects, indications for sooner follow up or return to the emergency department, and the expected course of current diagnosis. Patient condition: Stable Discharge Plan Plan Patient Disposition: HOME (Self Care) Discharge Disposition comment: Stable Prescriptions/Referrals Prescriptions/Med Rec: No Action metformin 500 mg Tablet 500 mg PO DAILY acetaminophen 500 mg Tablet 500 mg PO PRN MDD 4 PRN (Reason: Pain) levothyroxine 50 mcg Tablet 50 mcg PO DAILY cholecalciferol (vitamin D3) [Vitamin D3] 25 mcg (1,000 unit) Tablet 25 mcg PO 1XD Align (B.infantis) 4 mg Capsule 4 mg PO DAILY loperamide 2 mg capsule 2 mg PO QDAY alprazolam 0.5 mg tablet 0.5 mg PO BID PRN (Reason: Anxiety) Patient Comments: TAKE 1 TABLET BY MOUTH THREE TIMES DAILY NEEDED FOR ANXIETY pantoprazole 40 mg tablet,delayed release (DR/EC) 40 mg PO BID Patient Comments: TAKE 1 TABLET BY MOUTH DAILY benazepril 20 mg tablet 20 mg PO QDAY ondansetron 4 mg tablet,disintegrating 4 mg PO Q8H PRN (Reason: nausea and vomiting) Qty: 30 0RF lidocaine HCl [Lidocaine Viscous] 2 % solution 5 ml PO TIDPC MDD 15 mL PRN (Reason: dyspepsia) Qty: 300 0RF sucralfate [Carafate] 100 mg/mL suspension 10 ml PO TID Qty: 500 0RF Rx Instructions: swish in mouth and swallow; use after food/drink ondansetron 4 mg tablet,disintegrating 4 mg PO Q8H PRN (Reason: nausea and vomiting) Qty: 10 0RF Eliquis 5 mg Tablet 5 mg PO QDAY sennosides-docusate sodium [Senokot-S] 8.6-50 mg tablet 2 tab-cap PO QDAY PRN (Reason: constipation) Qty: 20 0RF magnesium hydroxide [Milk Of Magnesia Concentrated] 2,400 mg/10 mL suspension 30 ml PO QDAY PRN (Reason: constipation) Qty: 60 0RF ascorbic acid (vitamin C) [Vitamin C] 500 mg tablet 500 mg PO QDAY alprazolam [Xanax] 0.5 mg tablet 0.5 mg PO TID PRN (Reason: anxiety) duloxetine [Cymbalta] 60 mg capsule,delayed release(DR/EC) 60 mg PO QDAY Qty: 30 0RF ferrous sulfate 325 mg (65 mg iron) Tablet,Delayed Release (Dr/Ec) 325 mg PO QOD Qty: 30 0RF polyethylene glycol 3350 [Miralax] 17 gram/dose powder 4 g PO QDAY Qty: 510 0RF Problem List Clinical Impression: Breakthrough pain, C. difficile enteritis Patient/Caregiver Discharge Instructions Education Materials: What Is C. Diff?, ED Pain, Acute, Uncertain Cause Additional Instructions: Please follow-up with your primary care provider in the next 24 to 48 hours Pain medication was given to you please follow-up with your primary care provider on Thursday for further management of your C. difficile. For any evidence of worsening signs or symptoms return to the emergency room immediately Print Language: Indonesian Stand Alone Forms: [employer] Award Info., Patient Portal Info Letter PA/[employer] Supervising Physician PA/[employer] Supervising Physician: Dr. SANTANA
== END 2025-03-17 17:30 | disposition home or self-care (01) ==
LOC: SERX 17:00
PROVIDERS: Emergency Provider Emergency Medicine; PCP Family Medicine
DX: A04.72 Enterocolitis due to Clostridium difficile, not specified as recurrent (principal)
CPT/HCPCS: 99282; A9270

== ENCOUNTER 2025-04-08 20:16 | Emergency (ER) | payer MEDICARE, BC, SELFPAY ==
[2025-04-08 20:17] VITALS: BMI 27.4
[2025-04-08 20:32] VITALS: BP 167/64; PULSE 93; RESP 17; TEMP 36.7; O2SAT 96
== END 2025-04-08 21:24 | disposition left against medical advice (07) ==
LOC: SERX 21:02
PROVIDERS: Emergency Provider Emergency Medicine; PCP Family Medicine
DX: Z53.21 Procedure and treatment not carried out due to patient leaving prior to being seen by health care provider (principal)
CPT/HCPCS: 99281

== ENCOUNTER 2025-04-14 01:08 | Emergency (ER) | payer MEDICARE, BC, SELFPAY ==
--- NOTE | 2025-04-14 01:09 | EKG_ITS ---
[facility] Test Date: 2025-04-14 Pat Name: MARIBEL ALAMO Department: Room: - Gender: Female Filling Separator: : 1945 Requested By: ED Temporary Provider Order Number: [id number] Reading MD: ED Temporary Provider Measurements Intervals Jbphh Rate: 78 P: 36 [place]: 140 QRS: -13 QRSD: 105 T: 60 QT: 372 QTc: 424 Interpretive Statements SINUS RHYTHM WITH OCCASIONAL SUPRAVENTRICULAR PREMATURE COMPLEXES MINIMAL VOLTAGE CRITERIA FOR LVH, CONSIDER NORMAL VARIANT [MEETS CRITERIA IN ONE OF: R(aVL), S(V1), R(V5), R(V5/V6)+S(V1)] POSSIBLE ANTERIOR MYOCARDIAL INFARCTION , PROBABLY OLD [30 ms Q WAVE IN V3/V4, OR R < 0.2 mV IN V4] Compared to ECG 02/11/2025 02:46:04 No significant changes /store/S0/[id number]/ecg/[id number].pdf
[2025-04-14 01:23] VITALS: BP 151/76; PULSE 82; RESP 18; TEMP 36.6; O2SAT 96; BMI 31.2
--- NOTE | 2025-04-14 01:34 | XR_ITS ---
Examination: PA chest single view Technique: Upright PA chest single view Date and time: April 14, 2025, 0151 hrs., Comparison February 11, 2025. Indications: Onset chest pain beginning 3 hours ago. Findings: Normal heart size. Mild vascular congestion. No lobar pneumonia or pulmonary edema. Prominent osteopenia. Impression: Mild vascular congestion.
--- NOTE | 2025-04-14 01:49 | PD.EDCHEST ---
ED Chest Pain RME/HPI General Chief Complaint: Chest Pain Stated Complaint: CHEST PAIN Time Seen by Provider: 04/14/25 01:21 Arrival date/time: 04/14/25 01:08 79F with history of Afib, HTN, DM, duodenal ulcers, IBS, diverticulitis and recent C-diff bout presents to ED with several hours of chest pressure. She states it feels like there's a gas bubble in chest/stomach. Patient denies N/V, SOB, and URI symptoms. Possibly due to her ulcers, but she took a GI cocktail w/o improvement. Limitations: no limitations Related Data Home Medications ?Medication ?Instructions ?Recorded ?Confirmed Bifidobacterium infantis 4 mg 4 mg PO DAILY 06/27/23 02/05/25 capsule (Align (B.infantis)) acetaminophen 500 mg tablet 500 mg PO PRN PRN Pain 06/27/23 02/05/25 cholecalciferol (vitamin D3) 25 25 mcg PO 1XD 06/27/23 02/05/25 mcg (1,000 unit) tablet (Vitamin D3) levothyroxine 50 mcg tablet 50 mcg PO DAILY 06/27/23 02/05/25 metformin 500 mg tablet 500 mg PO DAILY 06/27/23 02/05/25 alprazolam 0.5 mg tablet 0.5 mg PO BID PRN Anxiety 10/28/23 02/05/25 benazepril 20 mg tablet 20 mg PO QDAY 10/28/23 02/05/25 loperamide 2 mg capsule 2 mg PO QDAY 10/28/23 02/06/25 pantoprazole 40 mg tablet,delayed 40 mg PO BID 10/28/23 02/05/25 release apixaban 5 mg tablet (Eliquis) 5 mg PO QDAY 06/11/24 02/05/25 alprazolam 0.5 mg tablet (Xanax) 0.5 mg PO TID PRN anxiety 02/05/25 02/05/25 ascorbic acid (vitamin C) 500 mg 500 mg PO QDAY 02/05/25 02/05/25 tablet (Vitamin C) Previous Rx's ?Medication ?Instructions ?Recorded ondansetron 4 mg disintegrating 4 mg PO Q8H PRN nausea and 02/22/24 tablet vomiting #30 tabs lidocaine HCl 2 % mucosal solution 5 ml PO TIDPC PRN dyspepsia #300 mL 07/02/24 (Lidocaine Viscous) sucralfate 100 mg/mL oral 10 ml PO TID #500 mL 07/02/24 suspension (Carafate) magnesium hydroxide 2,400 mg/10 mL 30 ml PO QDAY PRN constipation #60 01/22/25 oral suspension (Milk Of Magnesia mL Concentrated) sennosides 8.6 mg-docusate sodium 2 tab-cap (2 x 8.6-50 mg) PO QDAY 01/22/25 50 mg tablet (Senokot-S) PRN constipation #20 tabs duloxetine 60 mg capsule,delayed 60 mg PO QDAY #30 caps 02/14/25 release (Cymbalta) ferrous sulfate 325 mg (65 mg 325 mg PO QOD #30 tabs 02/14/25 iron) tablet,delayed release ondansetron 4 mg disintegrating 4 mg PO Q8H PRN nausea and 02/26/25 tablet vomiting #10 tabs polyethylene glycol 3350 17 4 g PO QDAY #510 grams 02/26/25 gram/dose oral powder (Miralax) Allergies Allergy/AdvReac Type Severity Reaction Status Date / Time amoxicillin (From Augmentin) Allergy Severe Hives Verified 04/08/25 20:19 aspirin Allergy Severe Abdominal Verified 04/08/25 20:19 Pain ciprofloxacin (From Cipro) Allergy Severe Gastrointestinal Verified 04/08/25 20:19 Upset clavulanic acid (From Allergy Severe Hives Verified 04/08/25 20:19 Augmentin) codeine Allergy Severe Nausea Verified 04/08/25 20:19 fluconazole Allergy Severe Rash Verified 04/08/25 20:19 gabapentin Allergy Severe Abdominal Verified 04/08/25 20:19 Pain ketorolac (From Toradol) Allergy Severe Abdominal Verified 04/08/25 20:19 Pain nalbuphine Allergy Severe Abdominal Verified 04/08/25 20:19 Pain Sulfa (Sulfonamide Allergy Severe Hives Verified 04/08/25 20:19 Antibiotics) tizanidine Allergy Severe Rash Verified 04/08/25 20:19 tramadol Allergy Severe Rash Verified 04/08/25 20:19 Review of Systems Review of Systems Systems Reviewed: All systems reviewed, normal except as documented Constitutional Constitutional: Reports system reviewed and no additional complaints, except as documented, Denies fever(s) and Denies headache(s) ENT Ears, Nose, Mouth, and Throat: Denies disequilibrium and Denies headache(s) Cardiovascular Cardiovascular: Reports system reviewed and no additional complaints, except as documented, Reports as per HPI, Reports chest pain and Denies dyspnea Respiratory Respiratory: Reports system reviewed and no additional complaints, except as documented, Denies cough and Denies dyspnea Gastrointestinal Gastrointestinal: Reports system reviewed and no additional complaints, except as documented, Denies abdominal pain, Denies nausea and Denies vomiting Neurologic Neurologic: Reports system reviewed and no additional complaints, except as documented, Denies confusion, Denies disequilibrium and Denies headache(s) Psychiatric Psychiatric: Denies confusion Past Medical History Past Medical History NEUROLOGIC: Negative Neurological Disorders or Seizures CARDIAC: Positive Cardiac Disorders, Cardiac Arrhythmia, Atrial Fibrillation, Hypercholesterolemia and Hypertension; Negative Congestive Heart Failure RESPIRATORY: Positive Pneumonia and Sleep Apnea; Negative Chronic Obstructive Pulmonary Disease (COPD) or Asthma GASTROINTESTINAL: Positive Gastrointestinal Disorders, Gastrointestinal Bleed, Colitis, Ulcerative Colitis, Diverticulitis, Diverticulosis, Ulcer, Irritable Bowel, Obstructive Bowel, Hemorrhoids and Obesity GENITOURINARY: Positive Kidney Stones; Negative Genitourinary Disorders or Renal Disease REPRODUCTIVE: Positive Previous Pregnancies MUSCULOSKELETAL: Positive Musculoskeletal Disorders and Arthritis ENT: Positive Cataracts and Ear Infection ENDOCRINE: Positive Diabetes Mellitus Type 2 (type II) and Hypothyroidism; Negative Diabetes Mellitus Type 1 HEMATOLOGIC: Negative Blood Disorders or Sickle Cell Disease PSYCHO/SOCIAL: Positive Anxiety OTHER HISTORY: Positive Falls, Blood Transfusions, Chicken Pox, Mumps and Clostridium Difficile; Negative Blood Transfusion Reaction, Anesthesia Reactions or Cancer Family History FAMILY HISTORY: Positive Family Cardiac Disorders; Negative Family Respiratory Disorders Surgical History SURGICAL: Positive Cardiac Surgery, Endocrine Surgery, Thyroidectomy, Abdominal Surgery, Joint Replacement, Hysterectomy and Section Social History SMOKING STATUS: Never smoker SUBSTANCE USE: does not use ED Exam General Limitations: Present no limitations General appearance: Present alert and in no apparent distress Head Head exam: Present atraumatic Eye Eye exam: Present normal appearance, PERRL and EOMI ENT ENT exam: Present normal exam, normal oropharynx and mucous membranes moist Neck Neck exam: Present normal inspection, full ROM and trachea midline Chest Chest inspection: Present normal inspection and symmetric chest wall rise Respiratory Respiratory exam: Present normal lung sounds bilaterally Cardiovascular Cardiovascular exam: Present regular rate, normal rhythm and normal heart sounds Abdominal Exam Abdominal exam: Present soft and normal bowel sounds Extremities Exam Extremities exam: Present normal inspection and full ROM Back Exam Back exam: Present normal inspection and full ROM Neurological Exam Neurological exam: Present alert, oriented X3 and CN II-XII intact Psychiatric Psychiatric exam: Present normal affect and normal mood Skin Skin exam: Present warm, dry, intact and normal color Course Quality Measures none Orders Category Date Time Status CT Screening NOW Care 04/14/25 03:52 Completed EKG (ED ONLY) *Do not use* NOW Care 04/14/25 01:09 Completed Insert IV NOW Care 04/14/25 03:[address] angio chest Stat Exams 04/14/25 03:52 Ordered EKG (ED Only) Stat Exams 04/14/25 01:09 Draft XR chest 1V portable Stat Exams 04/14/25 01:34 Taken CBC Stat Lab 04/14/25 02:27 Completed Comprehensive Metabolic Panel Stat Lab 04/14/25 02:27 Completed D-Dimer Stat Lab 04/14/25 02:27 Completed Magnesium Stat Lab 04/14/25 02:27 Completed Troponin I Stat Lab 04/14/25 02:27 Completed Vital Signs Vital signs: Vital Signs Temperature 98 F 04/14/25 01:23 Pulse Rate 82 04/14/25 01:23 Respiratory Rate 18 04/14/25 01:23 Blood Pressure 151/76 H 04/14/25 01:23 Pulse Oximetry (%) 96 04/14/25 01:23 Oxygen Delivery Method Room Air 04/14/25 01:23 O2 at 96% on RA and WNLs Chest Pain MDM Narrative MDM Narrative:: 79F with history of Afib, HTN, DM, duodenal ulcers, IBS, diverticulitis and recent C-diff bout presents to ED with several hours of chest pressure. She states it feels like there's a gas bubble in chest/stomach. Patient denies N/V, SOB, and URI symptoms. Possibly due to her ulcers, but she took a GI cocktail w/o improvement. Physical exam reveals clear lungs and RRR. Normal WOB. Patient is afebrile, calm, and alert. EKG is NSR. No leukocytosis. Moderate anemia. Initial trop neg. D-dimer mildly elevated. Patient eloped prior to CTA and repeat trop. Patient data External records reviewed:: [facility] previous records Clinical information provided by:: patient Social determinants that could affect healthcare access:: none Patient has the following chronic illnesses:: Afib, HTN, DM, duodenal ulcers, IBS, diverticulitis and recent C-diff gisell How is presenting disease/condition affected by chronic disease/condition?: exacerbated by Evaluation data The following diagnostics were reviewed and interpreted by me:: lab results, radiology exam(s) and EKG tracing(s) Lab and/or radiology exams considered but not ordered:: ordered Interpretation Summary: above Medications / Prescriptions Medications or Prescriptions considered but not ordered:: not ordered Medication administrations:: n/a Consultations Consultation(s) initiated? (list below): No Diagnosis Chest Pain Differential Diagnosis: fracture of rib, pneumothorax, stable angina, unstable angina pectoris, atypical chest pain, st elevation myocardial infarction, costochondritis, chest pain, biliary colic and other (PE, GERD) Most likely diagnosis given after review of the tests above:: atypical chest pain Admission Indicated Admission indicated?: not indicated Admission Request Was there a request for admission?: No Disposition Plan Disposition Plan: other (specify) (eloped) Discharge Plan Plan Patient Disposition: Elopement Prescriptions/Referrals Prescriptions/Med Rec: No Action metformin 500 mg Tablet 500 mg PO DAILY acetaminophen 500 mg Tablet 500 mg PO PRN MDD 4 PRN (Reason: Pain) levothyroxine 50 mcg Tablet 50 mcg PO DAILY cholecalciferol (vitamin D3) [Vitamin D3] 25 mcg (1,000 unit) Tablet 25 mcg PO 1XD Align (B.infantis) 4 mg Capsule 4 mg PO DAILY loperamide 2 mg capsule 2 mg PO QDAY alprazolam 0.5 mg tablet 0.5 mg PO BID PRN (Reason: Anxiety) Patient Comments: TAKE 1 TABLET BY MOUTH THREE TIMES DAILY NEEDED FOR ANXIETY pantoprazole 40 mg tablet,delayed release (DR/EC) 40 mg PO BID Patient Comments: TAKE 1 TABLET BY MOUTH DAILY benazepril 20 mg tablet 20 mg PO QDAY ondansetron 4 mg tablet,disintegrating 4 mg PO Q8H PRN (Reason: nausea and vomiting) Qty: 30 0RF lidocaine HCl [Lidocaine Viscous] 2 % solution 5 ml PO TIDPC MDD 15 mL PRN (Reason: dyspepsia) Qty: 300 0RF sucralfate [Carafate] 100 mg/mL suspension 10 ml PO TID Qty: 500 0RF Rx Instructions: swish in mouth and swallow; use after food/drink ondansetron 4 mg tablet,disintegrating 4 mg PO Q8H PRN (Reason: nausea and vomiting) Qty: 10 0RF Eliquis 5 mg Tablet 5 mg PO QDAY sennosides-docusate sodium [Senokot-S] 8.6-50 mg tablet 2 tab-cap PO QDAY PRN (Reason: constipation) Qty: 20 0RF magnesium hydroxide [Milk Of Magnesia Concentrated] 2,400 mg/10 mL suspension 30 ml PO QDAY PRN (Reason: constipation) Qty: 60 0RF ascorbic acid (vitamin C) [Vitamin C] 500 mg tablet 500 mg PO QDAY alprazolam [Xanax] 0.5 mg tablet 0.5 mg PO TID PRN (Reason: anxiety) duloxetine [Cymbalta] 60 mg capsule,delayed release(DR/EC) 60 mg PO QDAY Qty: 30 0RF ferrous sulfate 325 mg (65 mg iron) Tablet,Delayed Release (Dr/Ec) 325 mg PO QOD Qty: 30 0RF polyethylene glycol 3350 [Miralax] 17 gram/dose powder 4 g PO QDAY Qty: 510 0RF Referrals: Tyrone Langford MD [Primary Care Provider, Family Practice] - In 1 week Problem List Clinical Impression: Atypical chest pain Patient/Caregiver Discharge Instructions Print Language: Wallisian PA/[employer] Supervising Physician PA/[employer] Supervising Physician: Dr. Hernadez
[2025-04-14 03:03] LABS: Basophils # (Auto) 0.1 Thou/mm3 (0.0-0.2); Basophils % (Auto) 1 % (0-2.5); Eosinophils # (Auto) 0.2 Thou/mm3 (0.0-0.5); Eosinophils % (Auto) 3 % (0-10); Hematocrit 30.4 % (36.0-46.0); Hemoglobin 9.6 g/dL (12.0-16.0); Immature Granulocytes Auto 0.03 Thou/mm3 (0.00-0.00); Lymphocytes # (Auto) 2.3 Thou/mm3 (1.0-4.8); Lymphocytes % (Auto) 29 % (10-50); Mean Corpuscular HGB Conc 31.6 g/dl (31.0-37.0); Mean Corpuscular Hemoglobin 26.7 pg (25.0-35.0); Mean Corpuscular Volume 84 fL (80-100); Monocytes # (Auto) 0.9 Thou/mm3 (0.0-0.8); Monocytes % (Auto) 10 % (0-12); Neutrophils # (Auto) 4.7 Thou/mm3 (1.8-7.7); Neutrophils % (Auto) 57 % (37-80); Nucleated Red Blood Cell # 0.00 Thou/mm3 (0.00-0.00); Nucleated Red Blood Cell % 0 /100 WBC (0); Platelet Count 347 Thou/mm3 (140-440); RDW Standard Deviation 51.4 fL (36.4-46.3); Red Blood Count 3.60 Miln/mm3 (4.00-5.20); White Blood Count 8.2 Thou/mm3 (3.6-11.0)
[2025-04-14 03:23] LABS: D-Dimer 734 ng/mL (<600)
[2025-04-14 03:40] LABS: Alanine Aminotransferase 9 U/L (10-49); Albumin, Serum 4.4 gm/dL (3.4-4.8); Albumin/Globulin Ratio 1.4 (1.2-2.2); Alkaline Phosphatase 92 U/L (46-116); Anion Gap 12 (7-16); Aspartate Amino Transferase 12 U/L (0-34); BUN/Creatinine Ratio 16 Ratio (12-20); Bilirubin,Total < 0.2 mg/dL (0.3-1.2); Blood Urea Nitrogen 16 mg/dL (9-23); Calcium 9.9 mg/dL (8.3-10.6); Calcium (Corrected) 9.9 mg/dL (8.5-10.1); Carbon Dioxide 26.0 mMol/L (20.0-31.0); Chloride 103 mMol/L (98-107); Creatinine (Component) 1.0 mg/dL (0.6-1.3); Estimated Creatinine Clearance 41.2 mL/min (>60); Globulin 3.1 gm/dL (2.3-3.5); Glucose 147 mg/dL (74-106); Magnesium 1.6 mg/dL (1.6-2.6); Osmolality,Calculated 285 (275-295); Potassium 4.0 mMol/L (3.4-5.1); Sodium 141 mMol/L (136-145); Total Protein 7.5 gm/dL (5.7-8.2); Troponin I < 0.002 ng/mL (0.0-0.045); eGFR 58 See Note
== END 2025-04-14 03:56 | disposition left against medical advice (07) ==
LOC: SERX 01:50
PROVIDERS: Physician Assistant; Emergency Provider Emergency Medicine; PCP Family Medicine
DX: R07.89 Other chest pain (principal); D64.9 Anemia, unspecified; I10 Essential (primary) hypertension; E11.9 Type 2 diabetes mellitus without complications; E78.00 Pure hypercholesterolemia, unspecified; I48.91 Unspecified atrial fibrillation; K58.9 Irritable bowel syndrome, unspecified; E89.0 Postprocedural hypothyroidism; Z53.29 Procedure and treatment not carried out because of patient's decision for other reasons; Z79.890 Hormone replacement therapy; Z79.84 Long term (current) use of oral hypoglycemic drugs; Z79.899 Other long term (current) drug therapy; Z88.6 Allergy status to analgesic agent; Z88.5 Allergy status to narcotic agent; Z88.2 Allergy status to sulfonamides
CPT/HCPCS: 36415; 71045; 80053; 83735; 84484; 85025; 85379; 93005; 99283

== ENCOUNTER 2025-04-15 01:56 | Emergency (ER) | payer MEDICARE, BC, SELFPAY ==
[2025-04-15 02:06] VITALS: BP 157/93; PULSE 83; RESP 18; TEMP 36.4; O2SAT 96
[2025-04-15] MEDS: FAMOTIDINE 20 MG TABLET 40 MG PO (03:24)
[2025-04-15] MEDS: SUCRALFATE SUSP 1 GM/10 ML UDC PO (03:56)
[2025-04-15 04:43] VITALS: RESP 16
--- NOTE | 2025-04-15 05:13 | PD.EDABDPN ---
ED Abdominal Pain RME/HPI General Chief Complaint: Abdominal Pain Stated complaint: RIGHT ABD PAIN Time seen by provider: 04/15/25 03:06 Arrival date/time: 04/15/25 01:56 79F with history of Afib, HTN, DM, duodenal ulcers, IBS, diverticulitis and recent C-diff bout presents to ED with my normal stomach ulcer pain. Patient was here yesterday for CP and she eloped prior to repeat trop and CTA for mildly elevated D-dimer. Patient states no more chest pressure. Limitations: no limitations Related Data Home Medications ?Medication ?Instructions ?Recorded ?Confirmed Bifidobacterium infantis 4 mg 4 mg PO DAILY 06/27/23 02/05/25 capsule (Align (B.infantis)) acetaminophen 500 mg tablet 500 mg PO PRN PRN Pain 06/27/23 02/05/25 cholecalciferol (vitamin D3) 25 25 mcg PO 1XD 06/27/23 02/05/25 mcg (1,000 unit) tablet (Vitamin D3) levothyroxine 50 mcg tablet 50 mcg PO DAILY 06/27/23 02/05/25 metformin 500 mg tablet 500 mg PO DAILY 06/27/23 02/05/25 alprazolam 0.5 mg tablet 0.5 mg PO BID PRN Anxiety 10/28/23 02/05/25 benazepril 20 mg tablet 20 mg PO QDAY 10/28/23 02/05/25 loperamide 2 mg capsule 2 mg PO QDAY 10/28/23 02/06/25 pantoprazole 40 mg tablet,delayed 40 mg PO BID 10/28/23 02/05/25 release apixaban 5 mg tablet (Eliquis) 5 mg PO QDAY 06/11/24 02/05/25 alprazolam 0.5 mg tablet (Xanax) 0.5 mg PO TID PRN anxiety 02/05/25 02/05/25 ascorbic acid (vitamin C) 500 mg 500 mg PO QDAY 02/05/25 02/05/25 tablet (Vitamin C) Previous Rx's ?Medication ?Instructions ?Recorded ondansetron 4 mg disintegrating 4 mg PO Q8H PRN nausea and 02/22/24 tablet vomiting #30 tabs lidocaine HCl 2 % mucosal solution 5 ml PO TIDPC PRN dyspepsia #300 mL 07/02/24 (Lidocaine Viscous) sucralfate 100 mg/mL oral 10 ml PO TID #500 mL 07/02/24 suspension (Carafate) magnesium hydroxide 2,400 mg/10 mL 30 ml PO QDAY PRN constipation #60 01/22/25 oral suspension (Milk Of Magnesia mL Concentrated) sennosides 8.6 mg-docusate sodium 2 tab-cap (2 x 8.6-50 mg) PO QDAY 01/22/25 50 mg tablet (Senokot-S) PRN constipation #20 tabs duloxetine 60 mg capsule,delayed 60 mg PO QDAY #30 caps 02/14/25 release (Cymbalta) ferrous sulfate 325 mg (65 mg 325 mg PO QOD #30 tabs 02/14/25 iron) tablet,delayed release ondansetron 4 mg disintegrating 4 mg PO Q8H PRN nausea and 02/26/25 tablet vomiting #10 tabs polyethylene glycol 3350 17 4 g PO QDAY #510 grams 02/26/25 gram/dose oral powder (Miralax) Allergies Allergy/AdvReac Type Severity Reaction Status Date / Time amoxicillin (From Augmentin) Allergy Severe Hives Verified 04/08/25 20:19 aspirin Allergy Severe Abdominal Verified 04/08/25 20:19 Pain ciprofloxacin (From Cipro) Allergy Severe Gastrointestinal Verified 04/08/25 20:19 Upset clavulanic acid (From Allergy Severe Hives Verified 04/08/25 20:19 Augmentin) codeine Allergy Severe Nausea Verified 04/08/25 20:19 fluconazole Allergy Severe Rash Verified 04/08/25 20:19 gabapentin Allergy Severe Abdominal Verified 04/08/25 20:19 Pain ketorolac (From Toradol) Allergy Severe Abdominal Verified 04/08/25 20:19 Pain nalbuphine Allergy Severe Abdominal Verified 04/08/25 20:19 Pain Sulfa (Sulfonamide Allergy Severe Hives Verified 04/08/25 20:19 Antibiotics) tizanidine Allergy Severe Rash Verified 04/08/25 20:19 tramadol Allergy Severe Rash Verified 04/08/25 20:19 Review of Systems Review of Systems Systems Reviewed: All systems reviewed, normal except as documented Constitutional Constitutional: Reports system reviewed and no additional complaints, except as documented, Denies fever(s) and Denies headache(s) ENT Ears, Nose, Mouth, and Throat: Denies disequilibrium and Denies headache(s) Cardiovascular Cardiovascular: Reports system reviewed and no additional complaints, except as documented, Denies chest pain and Denies dyspnea Respiratory Respiratory: Reports system reviewed and no additional complaints, except as documented, Denies cough and Denies dyspnea Gastrointestinal Gastrointestinal: Reports system reviewed and no additional complaints, except as documented, Reports as per HPI, Reports abdominal pain, Denies nausea and Denies vomiting Neurologic Neurologic: Reports system reviewed and no additional complaints, except as documented, Denies confusion, Denies disequilibrium and Denies headache(s) Psychiatric Psychiatric: Denies confusion Past Medical History Past Medical History NEUROLOGIC: Negative Neurological Disorders or Seizures CARDIAC: Positive Cardiac Disorders, Cardiac Arrhythmia, Atrial Fibrillation, Hypercholesterolemia and Hypertension; Negative Congestive Heart Failure RESPIRATORY: Positive Pneumonia and Sleep Apnea; Negative Chronic Obstructive Pulmonary Disease (COPD) or Asthma GASTROINTESTINAL: Positive Gastrointestinal Disorders, Gastrointestinal Bleed, Colitis, Ulcerative Colitis, Diverticulitis, Diverticulosis, Ulcer, Irritable Bowel, Obstructive Bowel, Hemorrhoids and Obesity GENITOURINARY: Positive Kidney Stones; Negative Genitourinary Disorders or Renal Disease REPRODUCTIVE: Positive Previous Pregnancies MUSCULOSKELETAL: Positive Musculoskeletal Disorders and Arthritis ENT: Positive Cataracts and Ear Infection ENDOCRINE: Positive Diabetes Mellitus Type 2 (type II) and Hypothyroidism; Negative Diabetes Mellitus Type 1 HEMATOLOGIC: Negative Blood Disorders or Sickle Cell Disease PSYCHO/SOCIAL: Positive Anxiety OTHER HISTORY: Positive Falls, Blood Transfusions, Chicken Pox, Mumps and Clostridium Difficile; Negative Blood Transfusion Reaction, Anesthesia Reactions or Cancer Family History FAMILY HISTORY: Positive Family Cardiac Disorders; Negative Family Respiratory Disorders Surgical History SURGICAL: Positive Cardiac Surgery, Endocrine Surgery, Thyroidectomy, Abdominal Surgery, Joint Replacement, Hysterectomy and Section Social History SMOKING STATUS: Never smoker SUBSTANCE USE: does not use ED Exam General Limitations: Present no limitations General appearance: Present alert and in no apparent distress Head Head exam: Present atraumatic Neck Neck exam: Present normal inspection, full ROM and trachea midline Chest Chest inspection: Present normal inspection and symmetric chest wall rise Abdominal Exam Abdominal exam: Present soft Abdominal tenderness: Present epigastrium and mild Psychiatric Psychiatric exam: Present normal affect and normal mood Skin Skin exam: Present warm, dry, intact and normal color Course Quality Measures none Orders Category Date Time Status Famotidine [Pepcid] Med 04/15/25 03:02 Discontinued 40 mg PO X1 ONE Sucralfate Susp [Carafate Susp] Med 04/15/25 03:02 Discontinued 1 gm PO X1 ONE Vital Signs Vital signs: Vital Signs Temperature 97.5 F 04/15/25 02:06 Pulse Rate 83 04/15/25 02:06 Respiratory Rate 18 04/15/25 02:06 Blood Pressure 157/93 H 04/15/25 02:06 Pulse Oximetry (%) 96 04/15/25 02:06 Oxygen Delivery Method Room Air 04/15/25 02:06 O2 at 96% on RA and WNLs Abdominal Pain MDM MDM Narrative MDM Narrative:: 79F with history of Afib, HTN, DM, duodenal ulcers, IBS, diverticulitis and recent C-diff bout presents to ED with my normal stomach ulcer pain. Patient was here yesterday for CP and she eloped prior to repeat trop and CTA for mildly elevated D-dimer. Patient states no more chest pressure. Physical exam reveals mild RUQ/epigastric tenderness. Patient is afebrile, calm, and alert. Pepcid improved symptoms. Through shared decision-making, no CTA and blood work since CP has resolved, D-dimer was only mildly elevated, and patient doesn't want to wait and is ready to go home. Patient data External records reviewed:: [facility] previous records Clinical information provided by:: patient Social determinants that could affect healthcare access:: none Patient has the following chronic illnesses:: Afib, HTN, DM, duodenal ulcers, IBS, diverticulitis How is presenting disease/condition affected by chronic disease/condition?: exacerbated by Evaluation data The following diagnostics were reviewed and interpreted by me:: other (specify) (none) Lab and/or radiology exams considered but not ordered:: not ordered Interpretation Summary: n/a Medications / Prescriptions Medications or Prescriptions considered but not ordered:: ordered Medication administrations:: Medication Administration History Discontinued Medications Famotidine (Famotidine 20 Mg Tablet) 40 mg PO X1 ONE Stop: 04/15/25 03:03 Last Admin: 04/15/25 03:24 Dose: 40 mg Documented By: GERARDO Sucralfate (Sucralfate Susp 1 Gm/10 Ml Udc) 1 gm PO X1 ONE Stop: 04/15/25 03:03 Last Admin: 04/15/25 03:56 Dose: 1 gm Documented By: GERARDO above Consultations Consultation(s) initiated? (list below): No Diagnosis Differential diagnosis abdominal pain: abdominal pain, acute appendicitis, calculus of kidney, constipation, diverticulitis, endometriosis, gastroenteritis, pancreatitis, small bowel obstruction and other (gastritis) Most likely diagnosis given after review of the tests above:: gastritis Admission Indicated Admission indicated?: not indicated Admission Request Was there a request for admission?: No Disposition Plan Disposition Plan: Discharge Discharge Attestation Discharge Attestation: The patient and all family members were given an opportunity to ask questions and understood the discharge instructions. Discharge instructions specifically effects, indications for sooner follow up or return to the emergency department, and the expected course of current diagnosis. Patient condition: Stable Discharge Plan Plan Patient Disposition: HOME (Self Care) Discharge Disposition comment: Stable Prescriptions/Referrals Prescriptions/Med Rec: No Action metformin 500 mg Tablet 500 mg PO DAILY acetaminophen 500 mg Tablet 500 mg PO PRN MDD 4 PRN (Reason: Pain) levothyroxine 50 mcg Tablet 50 mcg PO DAILY cholecalciferol (vitamin D3) [Vitamin D3] 25 mcg (1,000 unit) Tablet 25 mcg PO 1XD Align (B.infantis) 4 mg Capsule 4 mg PO DAILY loperamide 2 mg capsule 2 mg PO QDAY alprazolam 0.5 mg tablet 0.5 mg PO BID PRN (Reason: Anxiety) Patient Comments: TAKE 1 TABLET BY MOUTH THREE TIMES DAILY NEEDED FOR ANXIETY pantoprazole 40 mg tablet,delayed release (DR/EC) 40 mg PO BID Patient Comments: TAKE 1 TABLET BY MOUTH DAILY benazepril 20 mg tablet 20 mg PO QDAY ondansetron 4 mg tablet,disintegrating 4 mg PO Q8H PRN (Reason: nausea and vomiting) Qty: 30 0RF lidocaine HCl [Lidocaine Viscous] 2 % solution 5 ml PO TIDPC MDD 15 mL PRN (Reason: dyspepsia) Qty: 300 0RF sucralfate [Carafate] 100 mg/mL suspension 10 ml PO TID Qty: 500 0RF Rx Instructions: swish in mouth and swallow; use after food/drink ondansetron 4 mg tablet,disintegrating 4 mg PO Q8H PRN (Reason: nausea and vomiting) Qty: 10 0RF Eliquis 5 mg Tablet 5 mg PO QDAY sennosides-docusate sodium [Senokot-S] 8.6-50 mg tablet 2 tab-cap PO QDAY PRN (Reason: constipation) Qty: 20 0RF magnesium hydroxide [Milk Of Magnesia Concentrated] 2,400 mg/10 mL suspension 30 ml PO QDAY PRN (Reason: constipation) Qty: 60 0RF ascorbic acid (vitamin C) [Vitamin C] 500 mg tablet 500 mg PO QDAY alprazolam [Xanax] 0.5 mg tablet 0.5 mg PO TID PRN (Reason: anxiety) duloxetine [Cymbalta] 60 mg capsule,delayed release(DR/EC) 60 mg PO QDAY Qty: 30 0RF ferrous sulfate 325 mg (65 mg iron) Tablet,Delayed Release (Dr/Ec) 325 mg PO QOD Qty: 30 0RF polyethylene glycol 3350 [Miralax] 17 gram/dose powder 4 g PO QDAY Qty: 510 0RF Referrals: Tyrone Langford MD [Primary Care Provider, Family Practice] - In 1 week Problem List Clinical Impression: Gastritis Patient/Caregiver Discharge Instructions Education Materials: ED PEPTIC ULCER vs GASTRITIS Additional Instructions: Please follow-up with PCP within 24-48 hours and return immediately if symptoms worsen. Can try Pepcid or ask PCP getting more Sucralfate, if you don't already have some at home. Print Language: Chadian Stand Alone Forms: Patient Portal Info Letter PA/RADIO HOST Supervising Physician PA/RADIO HOST Supervising Physician: Dr. Carlin
== END 2025-04-15 04:44 | disposition home or self-care (01) ==
PROVIDERS: Emergency Provider Emergency Medicine; PCP Family Medicine
DX: K29.70 Gastritis, unspecified, without bleeding (principal); I10 Essential (primary) hypertension; E11.9 Type 2 diabetes mellitus without complications; I48.91 Unspecified atrial fibrillation; K58.9 Irritable bowel syndrome, unspecified; K57.92 Diverticulitis of intestine, part unspecified, without perforation or abscess without bleeding; K26.9 Duodenal ulcer, unspecified as acute or chronic, without hemorrhage or perforation
CPT/HCPCS: 99283; A9270

== ENCOUNTER 2025-04-17 04:59 | Emergency (ER) | payer MEDICARE, BC, SELFPAY ==
[2025-04-17 05:06] VITALS: BP 162/84; PULSE 87; RESP 18; TEMP 36.3; O2SAT 96
--- NOTE | 2025-04-17 05:25 | XR_ITS ---
Examination: CT abdomen and pelvis without contrast. Coronal 3-D reconstructions. Sagittal 2-D reconstructions. Date and time of exam:April 17, 2025 0550 hrs. Indications: Abdomen pain today ulcer history 3 months CTDI: vol (mGy): 11.3 DLP: (mGycm): 593 Technique: Axial images of the abdomen have been obtained, 3 mm slice thickness Intravenous contrast material has not been administered. Low dose protocols were performed. One or more of the following dose reduction techniques were used; automated exposure control, adjustment of the mA and/or KV according to patient size, use of iterative reconstruction technique. Findings: Moderate vascular congestion Mild enlargement cardiac contour. No visualized liver or splenic lesion. No gallstones. No pancreatic or adrenal mass. Mild renal scarring with 10 mm mm posterior right renal cyst. No pericecal inflammatory change Aorta normal size Colonic diverticulosis No pelvic mass Bladder intact Transpedicular stabilization L5-S1 with grade 1 anterolisthesis L5 on S1 Impression: No acute process in the abdomen or pelvis
--- NOTE | 2025-04-17 05:26 | EKG_ITS ---
[facility] Test Date: 2025-04-17 Pat Name: MARIBEL ALAMO Department: Room: - Gender: Female [employer]: : [id number] Requested By: Imelda Taylor Order Number: [id number] Reading MD: Imelda Taylor Measurements Intervals [place] Rate: 84 P: 111 AK: 136 QRS: -11 QRSD: 109 T: 62 QT: 384 QTc: 454 Interpretive Statements SINUS RHYTHM WITH SINUS ARRHYTHMIA Compared to ECG 04/14/2025 01:25:41 Myocardial infarct finding no longer present /store/S0/[id number]/ecg/[id number].pdf
--- NOTE | 2025-04-17 05:27 | PD.EDRME ---
Rapid Medical Screening Exam RME Arrival date/time: 04/17/25 04:59 This is a case of 79F with history of Afib, HTN, DM, duodenal ulcers, IBS, diverticulitis and recent C-diff came in in the emergency room due to generalized abdominal pain nausea vomiting today worsening of the pain thus patient decided to sought consult here in the emergency ROOM Chief Complaint: Abdominal Pain Time Seen by Provider: 04/17/25 05:15 Vital signs: Vital Signs Temperature 97.4 F 04/17/25 05:06 Pulse Rate 87 04/17/25 05:06 Respiratory Rate 18 04/17/25 05:06 Blood Pressure 162/84 H 04/17/25 05:06 Pulse Oximetry (%) 96 04/17/25 05:06 Oxygen Delivery Method Room Air 04/17/25 05:06
[2025-04-17] MEDS: LIDOCAINE VISCOUS 2% 15 ML UDC PO (05:57)
[2025-04-17] MEDS: ACETAMINOPHEN 325 MG TABLET 1000 MG PO (05:57)
[2025-04-17] MEDS: ONDANSETRON ODT 4 MG TABRAP PO (05:57)
[2025-04-17] MEDS: MG HYD/AL HYD/SIME (Maalox Reg) SUSP 30 ML UDC PO (05:57)
[2025-04-17] MEDS: FAMOTIDINE 20 MG TABLET 40 MG PO (05:57)
--- NOTE | 2025-04-17 06:17 | PRELIM_ITS ---
CT scan of the abdomen and pelvis without intravenous contrast (axial sections with sagittal and coronal reformats): April 17, 2025 at 0550 hours Clinical History: Abdomen pain. Comparison: No prior study is available for comparison. Findings: Mild atelectasis/edema is seen in bilateral lung bases. There is moderate cardiomegaly. Coronary atherosclerosis is noted. The liver, gallbladder, adrenal glands, spleen and pancreas are unremarkable. There is small right renal cyst. The left kidney is normal. The appendix is not visualized; however, there is no evidence of inflammatory process in the right lower quadrant to suggest appendicitis. The urinary bladder is normal. No urinary tract stone or obstruction is identified. There is no free intraperitoneal air or fluid. There is grade 1 L4-L5 anterolisthesis. There is L5-S1 posterior fusion. There is sigmoid diverticulosis without definite findings of diverticulitis. Impression: No acute process of the abdomen or pelvis on this noncontrast exam. Mild congestive heart failure. Report Electronically Signed By: Alber Buitrago 04/17/2025 6:17:06 AM [EST]
--- NOTE | 2025-04-17 06:36 | PD.EDABDPN ---
ED Abdominal Pain RME/HPI General Chief Complaint: Abdominal Pain Stated complaint: ABD PAIN Time seen by provider: 04/17/25 05:15 Arrival date/time: 04/17/25 04:59 Source: patient Mode of arrival: ambulatory RME / HPI RME / HPI narrative: 04/17/25 04:59 This is a case of 79F with history of Afib, HTN, DM, duodenal ulcers, IBS, diverticulitis and recent C-diff came in in the emergency room due to generalized abdominal pain nausea vomiting today worsening of the pain thus patient decided to sought consult here in the emergency ROOM Ms Temple is a 75 year female with PMH of Atrial Fibrillation (on Eliquis, follows Dr Reza), Chronic Gastritis, Diverticulosis, IBS, Duodenal Ulcers, HTN, T2DM and Recent C Diff (prescribed vancomycin QID 03/13-03/23) who presented to [facility] ED on 04/17 with the cc of abdominal pain and nausea. Her symptoms started yesterday evening, she was unable to sleep, took two CBD gummies to assist her sleep, however the pain kept worsening and didn't improve with maalox and tylenol at home. She reports pain in LLQ and RLQ with mild epigastric tenderness, a/w bloating, nausea and two episodes of diarrhea. She denies any Vomiting, blood in vomit or stool. Otherwise denies any chest pain, palpitations and headache. She was given GI cocktail in triage, reports some improvement of symptoms but still complains of 8/10 pain. Related Data Home Medications ?Medication ?Instructions ?Recorded ?Confirmed Bifidobacterium infantis 4 mg 4 mg PO DAILY 06/27/23 02/05/25 capsule (Align (B.infantis)) acetaminophen 500 mg tablet 500 mg PO PRN PRN Pain 06/27/23 02/05/25 cholecalciferol (vitamin D3) 25 25 mcg PO 1XD 06/27/23 02/05/25 mcg (1,000 unit) tablet (Vitamin D3) levothyroxine 50 mcg tablet 50 mcg PO DAILY 06/27/23 02/05/25 metformin 500 mg tablet 500 mg PO DAILY 06/27/23 02/05/25 alprazolam 0.5 mg tablet 0.5 mg PO BID PRN Anxiety 10/28/23 02/05/25 benazepril 20 mg tablet 20 mg PO QDAY 10/28/23 02/05/25 loperamide 2 mg capsule 2 mg PO QDAY 10/28/23 02/06/25 pantoprazole 40 mg tablet,delayed 40 mg PO BID 10/28/23 02/05/25 release apixaban 5 mg tablet (Eliquis) 5 mg PO QDAY 06/11/24 02/05/25 alprazolam 0.5 mg tablet (Xanax) 0.5 mg PO TID PRN anxiety 02/05/25 02/05/25 ascorbic acid (vitamin C) 500 mg 500 mg PO QDAY 02/05/25 02/05/25 tablet (Vitamin C) Previous Rx's ?Medication ?Instructions ?Recorded ondansetron 4 mg disintegrating 4 mg PO Q8H PRN nausea and 02/22/24 tablet vomiting #30 tabs lidocaine HCl 2 % mucosal solution 5 ml PO TIDPC PRN dyspepsia #300 mL 07/02/24 (Lidocaine Viscous) sucralfate 100 mg/mL oral 10 ml PO TID #500 mL 07/02/24 suspension (Carafate) magnesium hydroxide 2,400 mg/10 mL 30 ml PO QDAY PRN constipation #60 01/22/25 oral suspension (Milk Of Magnesia mL Concentrated) sennosides 8.6 mg-docusate sodium 2 tab-cap (2 x 8.6-50 mg) PO QDAY 01/22/25 50 mg tablet (Senokot-S) PRN constipation #20 tabs duloxetine 60 mg capsule,delayed 60 mg PO QDAY #30 caps 02/14/25 release (Cymbalta) ferrous sulfate 325 mg (65 mg 325 mg PO QOD #30 tabs 02/14/25 iron) tablet,delayed release ondansetron 4 mg disintegrating 4 mg PO Q8H PRN nausea and 02/26/25 tablet vomiting #10 tabs polyethylene glycol 3350 17 4 g PO QDAY #510 grams 02/26/25 gram/dose oral powder (Miralax) Allergies Allergy/AdvReac Type Severity Reaction Status Date / Time amoxicillin (From Augmentin) Allergy Severe Hives Verified 04/08/25 20:19 aspirin Allergy Severe Abdominal Verified 04/08/25 20:19 Pain ciprofloxacin (From Cipro) Allergy Severe Gastrointestinal Verified 04/08/25 20:19 Upset clavulanic acid (From Allergy Severe Hives Verified 04/08/25 20:19 Augmentin) codeine Allergy Severe Nausea Verified 04/08/25 20:19 fluconazole Allergy Severe Rash Verified 04/08/25 20:19 gabapentin Allergy Severe Abdominal Verified 04/08/25 20:19 Pain ketorolac (From Toradol) Allergy Severe Abdominal Verified 04/08/25 20:19 Pain nalbuphine Allergy Severe Abdominal Verified 04/08/25 20:19 Pain Sulfa (Sulfonamide Allergy Severe Hives Verified 04/08/25 20:19 Antibiotics) tizanidine Allergy Severe Rash Verified 04/08/25 20:19 tramadol Allergy Severe Rash Verified 04/08/25 20:19 Review of Systems Review of Systems Narrative Review of Systems: ROS: -CONSTITUTIONAL: Denies weight loss, fever and chills. -HEENT: Denies changes in vision and hearing. -RESPIRATORY: Denies SOB and cough. -CV: Denies palpitations and Chest Pain. -GI: Denies vomiting,constipation and positive for diarrhea, abdominal pain and nausea. -: Denies dysuria and urinary frequency. -MSK: Denies myalgia and joint pain. -SKIN: Denies rash and pruritus. -NEUROLOGICAL: Denies headache and syncope. -PSYCHIATRIC: Denies recent changes in mood. Denies anxiety and depression. Past Medical History Past Medical History Comments PMH COMMENT: PMH: Positive for atrial fibrillation, hypertension, diabetes, duodenal ulcer, chronic gastritis, chronic pain, multiple surgeries for chronic back pain, diverticulosis, IBS, sleep apnea and Recent C Diff PSHx: Positive for section, hernia surgery, appendectomy, hip/knee surgery, hysterectomy. Ablation for A-fib and multiple back surgeries for chronic back pain Allergies: Amoxicillin, aspirin, ciprofloxacin, clavulanic acid, codeine, fluconazole, gabapentin, ketorolac, nalbuphine, sulfa drugs, tizanidine, tramadol Social history: -Smoking: Denies -Alcohol Use: Denies -Illicit Drug Use: Reports using CBD Gummies Family History: Positive for stroke and [place] in father ED Exam Narrative Physical exam: Physical Exam General: Awake and in no acute distress. Conversational and non-toxic appearing. HEENT: Normocephalic, atraumatic, mucous membranes moist. Heart: Regular rate and rhythm, no murmurs. Lungs: Clear to auscultation with no wheezing or crackles. Abdomen: Soft, minimal distention RLQ and LLQ, tender, positive bowel sounds. ?No guarding or rebound tenderness. Neurologic: Alert and oriented x3, no gross neurological deficit, and patient able to move all 4 extremities. Extremities: No edema. Skin: No rash or ecchymoses. Course Quality Measures none Orders Category Date Time Status EKG (ED ONLY) *Do not use* NOW Care 04/17/25 05:26 Completed Insert IV NOW Care 04/17/25 07:[address] abdomen pelvis wo con Stat Exams 04/17/25 05:25 Completed EKG (ED Only) Stat Exams 04/17/25 05:26 Draft Amylase Stat Lab 04/17/25 08:42 Completed CBC Stat Lab 04/17/25 08:42 Completed Comprehensive Metabolic Panel Stat Lab 04/17/25 08:42 Completed Lipase Stat Lab 04/17/25 08:42 Completed Troponin I Stat Lab 04/17/25 08:42 Completed Acetaminophen Ivpb [Ofirmev Inj] Med 04/17/25 06:24 Discontinued 1,000 mg in 100 ml IV X1 Acetaminophen Tab [Tylenol Tab] Med 04/17/25 05:25 Discontinued 1,000 mg PO X1 ONE Famotidine [Pepcid] Med 04/17/25 05:25 Discontinued 40 mg PO X1 ONE Lidocaine 2% Viscous [Xylocaine 2% Viscous] Med 04/17/25 05:25 Discontinued 15 ml PO X1 ONE Ondansetron Odt [Zofran Odt] Med 04/17/25 05:25 Discontinued 4 mg PO X1 ONE mg Hyd/Al Hyd/Jennifer Susp [Maalox Susp] Med 04/17/25 05:25 Discontinued 30 ml PO X1 ONE Vital Signs Vital signs: Vital Signs Temperature 97.4 F 04/17/25 05:06 Pulse Rate 87 04/17/25 05:06 Respiratory Rate 18 04/17/25 05:06 Blood Pressure 162/84 H 04/17/25 05:06 Pulse Oximetry (%) 96 04/17/25 05:06 Oxygen Delivery Method Room Air 04/17/25 05:06 Abdominal Pain MDM MDM Narrative MDM Narrative:: #Abdominal Pain #IBS flare Ddx: IBS Flare, Diverticulitis, Gastritis, Colitis, Gasstroenteritis CT Abdomen Pelvis: Unremarkable for any acute abdominal process Patient likely has IBS flareup, educated on management of IBS. Follow-up with program control analyst Dr. Osuna outpatient Patient was given Zofran p.o., Maalox p.o., lidocaine p.o., Tylenol 1000 mg x 1 p.o., famotidine p.o. and acetaminophen 1000 mg x 1 in the ED Patient symptoms improved after medication Case discussed with Attending Physician Dr. Kendall Geiger MD Internal Medicine PGY-2 Disclaimer: This note was dictated by speech recognition. Minor errors in powdered sugar pulverizer operator may be present due to voice recognition software. Patient data External records reviewed:: [facility] previous records Clinical information provided by:: patient Social determinants that could affect healthcare access:: none Patient has the following chronic illnesses:: atrial fibrillation, hypertension, diabetes, duodenal ulcer, chronic gastritis, chronic pain, multiple surgeries for chronic back pain, diverticulosis, IBS, sleep apnea and Recent C Diff How is presenting disease/condition affected by chronic disease/condition?: exacerbated by Evaluation data The following diagnostics were reviewed and interpreted by me:: lab results, radiology exam(s) and EKG tracing(s) Lab and/or radiology exams considered but not ordered:: N/A Interpretation Summary: EKG: Sinus Rhythm, HR 84 CTAP: No diverticulitis or acute GI process Labs: Labs significant for hemoglobin 10.0, GFR 46, creatinine 1.2, glucose 134 Medications / Prescriptions Medications or Prescriptions considered but not ordered:: None Medication administrations:: Medication Administration History Discontinued Medications Acetaminophen (Acetaminophen 325 Mg Tablet) 1,000 mg PO X1 ONE Stop: 04/17/25 05:26 Last Admin: 04/17/25 05:57 Dose: 1,000 mg Documented By: RITCHIE Al Hydrox/Mg Hydrox/Simethicone (Mg Hyd/Al Hyd/Jennifer (Maalox Reg) Susp 30 Ml Udc) 30 ml PO X1 ONE Stop: 04/17/25 05:26 Last Admin: 04/17/25 05:57 Dose: 30 ml Documented By: RITCHIE Famotidine (Famotidine 20 Mg Tablet) 40 mg PO X1 ONE Stop: 04/17/25 05:26 Last Admin: 04/17/25 05:57 Dose: 40 mg Documented By: RITCHIE Acetaminophen (Ofirmev Inj) 1,000 mg in 100 mls @ 250 mls/hr IV X1 ONE Stop: 04/17/25 06:47 Last Infusion: 04/17/25 08:05 Dose: Infused Documented By: Admin: 04/17/25 07:21 Dose: 250 mls/hr Documented By: JASWANT Lidocaine HCl (Lidocaine Viscous 2% 15 Ml Udc) 15 ml PO X1 ONE Stop: 04/17/25 05:26 Last Admin: 04/17/25 05:57 Dose: 15 ml Documented By: RITCHIE Ondansetron HCl (Ondansetron Odt 4 Mg Tabrap) 4 mg PO X1 ONE; Protocol Stop: 04/17/25 05:26 Last Admin: 04/17/25 05:57 Dose: 4 mg Documented By: RITCHIE As Above Consultations Consultation(s) initiated? (list below): No Diagnosis Differential diagnosis abdominal pain: abdominal pain, diverticulitis, gastroenteritis, pancreatitis, small bowel obstruction and other Most likely diagnosis given after review of the tests above:: IBS flare Admission Indicated Admission indicated?: not indicated Admission Request Was there a request for admission?: No Disposition Plan Disposition Plan: Discharge Discharge Attestation Discharge Attestation: The patient and all family members were given an opportunity to ask questions and understood the discharge instructions. Discharge instructions specifically effects, indications for sooner follow up or return to the emergency department, and the expected course of current diagnosis. Patient condition: Stable Discharge Plan Plan Patient Disposition: HOME (Self Care) Patient condition on transfer: Stable Health Concerns: -Continue your home medications, continue tylenol, carafate, pantoprazole and loperamide -Follow up with your program control analyst outpatient call his office to make an appointment -Follow up with PCP in 1-2 weeks, return to ED is symptoms worsen Prescriptions/Referrals Prescriptions/Med Rec: No Action metformin 500 mg Tablet 500 mg PO DAILY acetaminophen 500 mg Tablet 500 mg PO PRN MDD 4 PRN (Reason: Pain) levothyroxine 50 mcg Tablet 50 mcg PO DAILY cholecalciferol (vitamin D3) [Vitamin D3] 25 mcg (1,000 unit) Tablet 25 mcg PO 1XD Align (B.infantis) 4 mg Capsule 4 mg PO DAILY loperamide 2 mg capsule 2 mg PO QDAY alprazolam 0.5 mg tablet 0.5 mg PO BID PRN (Reason: Anxiety) Patient Comments: TAKE 1 TABLET BY MOUTH THREE TIMES DAILY NEEDED FOR ANXIETY pantoprazole 40 mg tablet,delayed release (DR/EC) 40 mg PO BID Patient Comments: TAKE 1 TABLET BY MOUTH DAILY benazepril 20 mg tablet 20 mg PO QDAY ondansetron 4 mg tablet,disintegrating 4 mg PO Q8H PRN (Reason: nausea and vomiting) Qty: 30 0RF lidocaine HCl [Lidocaine Viscous] 2 % solution 5 ml PO TIDPC MDD 15 mL PRN (Reason: dyspepsia) Qty: 300 0RF sucralfate [Carafate] 100 mg/mL suspension 10 ml PO TID Qty: 500 0RF Rx Instructions: swish in mouth and swallow; use after food/drink ondansetron 4 mg tablet,disintegrating 4 mg PO Q8H PRN (Reason: nausea and vomiting) Qty: 10 0RF Eliquis 5 mg Tablet 5 mg PO QDAY sennosides-docusate sodium [Senokot-S] 8.6-50 mg tablet 2 tab-cap PO QDAY PRN (Reason: constipation) Qty: 20 0RF magnesium hydroxide [Milk Of Magnesia Concentrated] 2,400 mg/10 mL suspension 30 ml PO QDAY PRN (Reason: constipation) Qty: 60 0RF ascorbic acid (vitamin C) [Vitamin C] 500 mg tablet 500 mg PO QDAY alprazolam [Xanax] 0.5 mg tablet 0.5 mg PO TID PRN (Reason: anxiety) duloxetine [Cymbalta] 60 mg capsule,delayed release(DR/EC) 60 mg PO QDAY Qty: 30 0RF ferrous sulfate 325 mg (65 mg iron) Tablet,Delayed Release (Dr/Ec) 325 mg PO QOD Qty: 30 0RF polyethylene glycol 3350 [Miralax] 17 gram/dose powder 4 g PO QDAY Qty: 510 0RF Referrals: Luz Marina Osuna MD [Physician, Gastroenterology] - In 1 week Tyrone Langford MD [Primary Care Provider, Family Practice] - In 1 week Problem List Clinical Impression: Irritable bowel syndrome (IBS) Patient/Caregiver Discharge Instructions Discharge Activity: activity as tolerated Education Materials: ED Irritable Bowel Syndrome Print Language: Georgian Stand Alone Forms: [facility] Award Info., Patient Portal Info Letter
[2025-04-17 06:44] VITALS: BP 198/85; PULSE 66; RESP 16; TEMP 36.8; O2SAT 98
[2025-04-17] MEDS: ACETAMINOPHEN IVPB 1,000 MG/100 ML VIAL 250 MG IV (07:21)
[2025-04-17 08:48] LABS: Basophils # (Auto) 0.1 Thou/mm3 (0.0-0.2); Basophils % (Auto) 1 % (0-2.5); Eosinophils # (Auto) 0.1 Thou/mm3 (0.0-0.5); Eosinophils % (Auto) 1 % (0-10); Hematocrit 32.4 % (36.0-46.0); Hemoglobin 10.0 g/dL (12.0-16.0); Immature Granulocytes Auto 0.01 Thou/mm3 (0.00-0.00); Lymphocytes # (Auto) 2.1 Thou/mm3 (1.0-4.8); Lymphocytes % (Auto) 31 % (10-50); Mean Corpuscular HGB Conc 30.9 g/dl (31.0-37.0); Mean Corpuscular Hemoglobin 26.2 pg (25.0-35.0); Mean Corpuscular Volume 85 fL (80-100); Monocytes # (Auto) 0.6 Thou/mm3 (0.0-0.8); Monocytes % (Auto) 9 % (0-12); Neutrophils # (Auto) 3.8 Thou/mm3 (1.8-7.7); Neutrophils % (Auto) 58 % (37-80); Nucleated Red Blood Cell # 0.00 Thou/mm3 (0.00-0.00); Nucleated Red Blood Cell % 0 /100 WBC (0); Platelet Count 331 Thou/mm3 (140-440); RDW Standard Deviation 51.4 fL (36.4-46.3); Red Blood Count 3.82 Miln/mm3 (4.00-5.20); White Blood Count 6.6 Thou/mm3 (3.6-11.0)
[2025-04-17 09:08] LABS: Alanine Aminotransferase 13 U/L (10-49); Albumin, Serum 4.4 gm/dL (3.4-4.8); Albumin/Globulin Ratio 1.4 (1.2-2.2); Alkaline Phosphatase 91 U/L (46-116); Amylase 61 U/L (30-118); Anion Gap 13 (7-16); Aspartate Amino Transferase 19 U/L (0-34); BUN/Creatinine Ratio 15 Ratio (12-20); Bilirubin,Total 0.2 mg/dL (0.3-1.2); Blood Urea Nitrogen 18 mg/dL (9-23); Calcium 9.8 mg/dL (8.3-10.6); Calcium (Corrected) 9.8 mg/dL (8.5-10.1); Carbon Dioxide 25.2 mMol/L (20.0-31.0); Chloride 100 mMol/L (98-107); Creatinine (Component) 1.2 mg/dL (0.6-1.3); Estimated Creatinine Clearance 37.7 mL/min (>60); Globulin 3.2 gm/dL (2.3-3.5); Glucose 134 mg/dL (74-106); Lipase 38 U/L (12-53); Osmolality,Calculated 279 (275-295); Potassium 4.2 mMol/L (3.4-5.1); Sodium 138 mMol/L (136-145); Total Protein 7.6 gm/dL (5.7-8.2); Troponin I < 0.020 ng/mL (0.0-0.045); eGFR 46 See Note
[2025-04-17 10:00] VITALS: PULSE 68; RESP 18; TEMP 36.4; O2SAT 99
== END 2025-04-17 10:02 | disposition home or self-care (01) ==
PROVIDERS: Nurse Practitioner Family; Emergency Provider Emergency Medicine; PCP Family Medicine
DX: K58.0 Irritable bowel syndrome with diarrhea (principal); I49.8 Other specified cardiac arrhythmias; I10 Essential (primary) hypertension; I48.91 Unspecified atrial fibrillation; Z79.01 Long term (current) use of anticoagulants
CPT/HCPCS: 36415; 74176; 80053; 80307; 81001; 82150; 83690; 84484; 85025; 93005; 96365; 99283; J0131; J3490; Q0162; A9270

== ENCOUNTER 2025-05-01 11:21 | Emergency (ER) | payer MEDICARE, BC, SELFPAY ==
[2025-05-01 11:21] VITALS: PULSE 91; O2SAT 96; BMI 29.2
--- NOTE | 2025-05-01 11:49 | XR_ITS ---
Examination: CT abdomen and pelvis without contrast. Coronal 3-D reconstructions. Sagittal 2-D reconstructions. Date and time of exam:May 01, 2025 1323 hours, comparison 04/17/2025 INDICATIONS: Left-sided flank pain beginning this morning CTDI: vol (mGy): 9.46 DLP: (mGycm): 186 Technique: Axial images of the abdomen have been obtained, 3 mm slice thickness Intravenous contrast material has not been administered. Low dose protocols were performed. One or more of the following dose reduction techniques were used; automated exposure control, adjustment of the mA and/or KV according to patient size, use of iterative reconstruction technique. Findings: No focal liver or splenic lesions No gallstones. No pancreatic or adrenal mass. No renal or ureteral calculi, no hydronephrosis Posterior 14 mm right renal cyst Aorta is nonenlarged No pericecal inflammatory change Colonic diverticulosis Right hip hemiarthroplasty generates artifacts in the pelvis Bladder appears intact Transpedicular lumbar stabilization L5-S1 Prominent osteopenia IMPRESSION: No renal or ureteral calculi, no hydronephrosis No CT findings of appendicitis or bowel obstruction Colonic diverticulosis, no diverticulitis
--- NOTE | 2025-05-01 11:50 | PD.EDRME ---
Rapid Medical Screening Exam RME Arrival date/time: 05/01/25 11:21 79-year-old female with a history of hypertension, hypothyroidism, colitis, diverticulitis presents to the emergency room with a chief complaint of lower pelvic pain and diarrhea x 2 days I have greeted and performed a focused initial assessment of this patient. A comprehensive ED assessment and evaluation of the patient, analysis of all test results, and completion of the medical decision making process will be conducted by additional ED providers. Chief Complaint: Abdominal Pain Time Seen by Provider: 05/01/25 11:33 Vital signs: Vital Signs Temperature 98.2 F 05/01/25 11:53 Pulse Rate 85 05/01/25 11:53 Respiratory Rate 18 05/01/25 11:53 Blood Pressure 158/78 H 05/01/25 11:53 Pulse Oximetry (%) 95 05/01/25 11:53 Oxygen Delivery Method Room Air 05/01/25 11:53 Vital signs reviewed by provider: Yes
[2025-05-01 11:53] VITALS: BP 158/78; PULSE 85; RESP 18; TEMP 36.8; O2SAT 95
[2025-05-01] MEDS: ACETAMINOPHEN 325 MG TABLET 650 MG PO (11:57)
[2025-05-01 12:23] LABS: Basophils # (Auto) 0.0 Thou/mm3 (0.0-0.2); Basophils % (Auto) 1 % (0-2.5); Eosinophils # (Auto) 0.1 Thou/mm3 (0.0-0.5); Eosinophils % (Auto) 1 % (0-10); Hematocrit 32.8 % (36.0-46.0); Hemoglobin 10.2 g/dL (12.0-16.0); Immature Granulocytes Auto 0.02 Thou/mm3 (0.00-0.00); Lymphocytes # (Auto) 1.8 Thou/mm3 (1.0-4.8); Lymphocytes % (Auto) 29 % (10-50); Mean Corpuscular HGB Conc 31.1 g/dl (31.0-37.0); Mean Corpuscular Hemoglobin 26.2 pg (25.0-35.0); Mean Corpuscular Volume 84 fL (80-100); Monocytes # (Auto) 0.5 Thou/mm3 (0.0-0.8); Monocytes % (Auto) 8 % (0-12); Neutrophils # (Auto) 3.7 Thou/mm3 (1.8-7.7); Neutrophils % (Auto) 61 % (37-80); Nucleated Red Blood Cell # 0.00 Thou/mm3 (0.00-0.00); Nucleated Red Blood Cell % 0 /100 WBC (0); Platelet Count 380 Thou/mm3 (140-440); RDW Standard Deviation 49.9 fL (36.4-46.3); Red Blood Count 3.89 Miln/mm3 (4.00-5.20); White Blood Count 6.1 Thou/mm3 (3.6-11.0)
[2025-05-01 12:43] LABS: Alanine Aminotransferase 11 U/L (10-49); Albumin, Serum 4.5 gm/dL (3.4-4.8); Albumin/Globulin Ratio 1.4 (1.2-2.2); Alkaline Phosphatase 82 U/L (46-116); Anion Gap 9 (7-16); Aspartate Amino Transferase 15 U/L (0-34); BUN/Creatinine Ratio 15 Ratio (12-20); Bilirubin,Total 0.3 mg/dL (0.3-1.2); Blood Urea Nitrogen 15 mg/dL (9-23); Calcium 9.8 mg/dL (8.3-10.6); Calcium (Corrected) 9.8 mg/dL (8.5-10.1); Carbon Dioxide 27.3 mMol/L (20.0-31.0); Chloride 105 mMol/L (98-107); Creatinine (Component) 1.0 mg/dL (0.6-1.3); Estimated Creatinine Clearance 46.6 mL/min (>60); Globulin 3.2 gm/dL (2.3-3.5); Glucose 131 mg/dL (74-106); Osmolality,Calculated 284 (275-295); Potassium 4.0 mMol/L (3.4-5.1); Sodium 141 mMol/L (136-145); Total Protein 7.7 gm/dL (5.7-8.2); eGFR 58 See Note
[2025-05-01 12:57] LABS: Collection Type, Urine Clean Catch
[2025-05-01 13:18] LABS: Bilirubin,Urine Negative (Negative); Blood,Urine Negative (Negative); Clarity,Urine Clear (Clear/Hazy); Color,Urine Lt-Yellow (Lt Yel-Yel); Glucose, Urine Negative (Negative); Ketones,Urine Negative (Negative); Leukocyte Esterase,Urine Negative (Negative); Nitrite,Urine Negative (Negative); PH,Urine 6.0 (5.0-7.0); Protein,Urine Negative (Neg - Trace); RBC,Urine < 1 /hpf (0-3); Specific Gravity,Urine 1.010 (1.001-1.035); Squamous Epithelial Cell,Urine 2 /hpf (0-5); Urobilinogen,Urine Negative mg/dL (0.0-1.0); WBC,Urine < 1 /hpf (0-5)
--- NOTE | 2025-05-01 14:49 | PD.EDABDPN ---
ED Abdominal Pain RME/HPI General Chief Complaint: Abdominal Pain Stated complaint: ABD PAIN X1DAY Time seen by provider: 05/01/25 11:33 Arrival date/time: 05/01/25 11:21 79-year-old female with a history of hypertension, hypothyroidism, colitis, diverticulitis presents to the emergency room with a chief complaint of lower pelvic pain and diarrhea x 2 days Source: patient Mode of arrival: ambulatory Limitations: no limitations RME / HPI RME / HPI narrative: 05/01/25 11:21 79-year-old female with a history of hypertension, hypothyroidism, colitis, diverticulitis presents to the emergency room with a chief complaint of lower pelvic pain and diarrhea x 2 days I have greeted and performed a focused initial assessment of this patient. A comprehensive ED assessment and evaluation of the patient, analysis of all test results, and completion of the medical decision making process will be conducted by additional ED providers. Related Data Home Medications ?Medication ?Instructions ?Recorded ?Confirmed Bifidobacterium infantis 4 mg 4 mg PO DAILY 06/27/23 02/05/25 capsule (Align (B.infantis)) acetaminophen 500 mg tablet 500 mg PO PRN PRN Pain 06/27/23 02/05/25 cholecalciferol (vitamin D3) 25 25 mcg PO 1XD 06/27/23 02/05/25 mcg (1,000 unit) tablet (Vitamin D3) levothyroxine 50 mcg tablet 50 mcg PO DAILY 06/27/23 02/05/25 metformin 500 mg tablet 500 mg PO DAILY 06/27/23 02/05/25 alprazolam 0.5 mg tablet 0.5 mg PO BID PRN Anxiety 10/28/23 02/05/25 benazepril 20 mg tablet 20 mg PO QDAY 10/28/23 02/05/25 loperamide 2 mg capsule 2 mg PO QDAY 10/28/23 02/06/25 pantoprazole 40 mg tablet,delayed 40 mg PO BID 10/28/23 02/05/25 release apixaban 5 mg tablet (Eliquis) 5 mg PO QDAY 06/11/24 02/05/25 alprazolam 0.5 mg tablet (Xanax) 0.5 mg PO TID PRN anxiety 02/05/25 02/05/25 ascorbic acid (vitamin C) 500 mg 500 mg PO QDAY 02/05/25 02/05/25 tablet (Vitamin C) Previous Rx's ?Medication ?Instructions ?Recorded ondansetron 4 mg disintegrating 4 mg PO Q8H PRN nausea and 02/22/24 tablet vomiting #30 tabs lidocaine HCl 2 % mucosal solution 5 ml PO TIDPC PRN dyspepsia #300 mL 07/02/24 (Lidocaine Viscous) sucralfate 100 mg/mL oral 10 ml PO TID #500 mL 07/02/24 suspension (Carafate) magnesium hydroxide 2,400 mg/10 mL 30 ml PO QDAY PRN constipation #60 01/22/25 oral suspension (Milk Of Magnesia mL Concentrated) sennosides 8.6 mg-docusate sodium 2 tab-cap (2 x 8.6-50 mg) PO QDAY 01/22/25 50 mg tablet (Senokot-S) PRN constipation #20 tabs duloxetine 60 mg capsule,delayed 60 mg PO QDAY #30 caps 02/14/25 release (Cymbalta) ferrous sulfate 325 mg (65 mg 325 mg PO QOD #30 tabs 02/14/25 iron) tablet,delayed release ondansetron 4 mg disintegrating 4 mg PO Q8H PRN nausea and 02/26/25 tablet vomiting #10 tabs polyethylene glycol 3350 17 4 g PO QDAY #510 grams 02/26/25 gram/dose oral powder (Miralax) Allergies Allergy/AdvReac Type Severity Reaction Status Date / Time amoxicillin (From Augmentin) Allergy Severe Hives Verified 05/01/25 11:24 aspirin Allergy Severe Abdominal Verified 05/01/25 11:24 Pain ciprofloxacin (From Cipro) Allergy Severe Gastrointestinal Verified 05/01/25 11:24 Upset clavulanic acid (From Allergy Severe Hives Verified 05/01/25 11:24 Augmentin) codeine Allergy Severe Nausea Verified 05/01/25 11:24 fluconazole Allergy Severe Rash Verified 05/01/25 11:24 gabapentin Allergy Severe Abdominal Verified 05/01/25 11:24 Pain ketorolac (From Toradol) Allergy Severe Abdominal Verified 05/01/25 11:24 Pain nalbuphine Allergy Severe Abdominal Verified 05/01/25 11:24 Pain Sulfa (Sulfonamide Allergy Severe Hives Verified 05/01/25 11:24 Antibiotics) tizanidine Allergy Severe Rash Verified 05/01/25 11:24 tramadol Allergy Severe Rash Verified 05/01/25 11:24 Review of Systems Review of Systems Systems Reviewed: All systems reviewed, normal except as documented Constitutional Constitutional: Reports system reviewed and no additional complaints, except as documented, Denies fatigue, Denies fever(s), Denies headache(s) and Denies weakness Eyes Eyes: Reports system reviewed and no additional complaints, except as documented, Denies blurry vision and Denies change in vision ENT Ears, Nose, Mouth, and Throat: Reports system reviewed and no additional complaints, except as documented, Denies otalgia, Denies headache(s), Denies nasal congestion, Denies throat swelling and Denies vertigo Cardiovascular Cardiovascular: Reports system reviewed and no additional complaints, except as documented, Denies chest pain, Denies dyspnea and Denies dyspnea on exertion Respiratory Respiratory: Reports system reviewed and no additional complaints, except as documented, Denies chest congestion, Denies cough, Denies dyspnea, Denies dyspnea on exertion and Denies wheezing Gastrointestinal Gastrointestinal: Reports system reviewed and no additional complaints, except as documented, Reports abdominal pain, Reports cramping, Reports diarrhea, Denies nausea and Denies vomiting Genitourinary Genitourinary: Reports system reviewed and no additional complaints, except as documented Musculoskeletal Musculoskeletal: Reports system reviewed and no additional complaints, except as documented and Denies back pain Integumentary/Breasts Skin/Breast: Reports system reviewed and no additional complaints, except as documented and Denies wounds Neurologic Neurologic: Reports system reviewed and no additional complaints, except as documented, Denies confusion, Denies headache(s), Denies lack of coordination, Denies vertigo and Denies weakness Psychiatric Psychiatric: Reports system reviewed and no additional complaints, except as documented, Denies anxiety, Denies confusion, Denies depression, Denies paranoia, Denies suicidal ideation and Denies tactile hallucinations Endocrine Endocrine: Reports system reviewed and no additional complaints, except as documented and Denies fatigue Hematologic/Lymphatic Hematologic/Lymphatic: Reports system reviewed and no additional complaints, except as documented and Denies lymphadenopathy Allergic/Immunologic Allergic/Immunologic: Reports system reviewed and no additional complaints, except as documented, Denies throat swelling, Denies urticaria and Denies wheezing Past Medical History Past Medical History NEUROLOGIC: Negative Neurological Disorders or Seizures CARDIAC: Positive Cardiac Disorders, Cardiac Arrhythmia, Atrial Fibrillation, Hypercholesterolemia and Hypertension; Negative Congestive Heart Failure RESPIRATORY: Positive Pneumonia and Sleep Apnea; Negative Chronic Obstructive Pulmonary Disease (COPD) or Asthma GASTROINTESTINAL: Positive Gastrointestinal Disorders, Gastrointestinal Bleed, Colitis, Ulcerative Colitis, Diverticulitis, Diverticulosis, Ulcer, Irritable Bowel, Obstructive Bowel, Hemorrhoids and Obesity GENITOURINARY: Positive Kidney Stones; Negative Genitourinary Disorders or Renal Disease REPRODUCTIVE: Positive Previous Pregnancies MUSCULOSKELETAL: Positive Musculoskeletal Disorders and Arthritis ENT: Positive Cataracts and Ear Infection ENDOCRINE: Positive Diabetes Mellitus Type 2 and Hypothyroidism; Negative Diabetes Mellitus Type 1 HEMATOLOGIC: Negative Blood Disorders or Sickle Cell Disease PSYCHO/SOCIAL: Positive Anxiety OTHER HISTORY: Positive Falls, Blood Transfusions, Chicken Pox, Mumps and Clostridium Difficile; Negative Blood Transfusion Reaction, Anesthesia Reactions or Cancer Family History FAMILY HISTORY: Positive Family Cardiac Disorders; Negative Family Respiratory Disorders Surgical History SURGICAL: Positive Cardiac Surgery, Endocrine Surgery, Thyroidectomy, Abdominal Surgery, Joint Replacement, Hysterectomy and Section Social History SMOKING STATUS: Never smoker SUBSTANCE USE: does not use ED Exam General Limitations: Present no limitations General appearance: Present alert and in no apparent distress Head Head exam: Present atraumatic Eye Eye exam: Present normal appearance, PERRL and EOMI ENT ENT exam: Present normal exam, normal oropharynx and mucous membranes moist Neck Neck exam: Present normal inspection, full ROM and trachea midline Chest Chest inspection: Present normal inspection and symmetric chest wall rise Respiratory Respiratory exam: Present normal lung sounds bilaterally Cardiovascular Cardiovascular exam: Present regular rate, normal rhythm and normal heart sounds Abdominal Exam Abdominal exam: Present soft and normal bowel sounds; Absent distention, tenderness, guarding, rebound, Spencer's sign or tenderness at McBurney's Point Extremities Exam Extremities exam: Present normal inspection and full ROM Back Exam Back exam: Present normal inspection and full ROM Neurological Exam Neurological exam: Present alert, oriented X3 and CN II-XII intact Psychiatric Psychiatric exam: Present normal affect and normal mood Skin Skin exam: Present warm, dry, intact and normal color Course Quality Measures none Orders Category Date Time Status CT abdomen pelvis wo con Stat Exams 05/01/25 11:49 Completed CBC Stat Lab 05/01/25 12:02 Completed CMP [Comprehensive Metabolic Panel] Stat Lab 05/01/25 12:02 Completed UA [Urinalysis] Stat Lab 05/01/25 12:34 Completed Urine Culture Stat Lab 05/01/25 12:34 Received Acetaminophen Tab [Tylenol Tab] Med 05/01/25 11:49 Discontinued 650 mg PO X1 ONE Vital Signs Vital signs: Vital Signs Temperature 98.2 F 05/01/25 11:53 Pulse Rate 85 05/01/25 11:53 Respiratory Rate 18 05/01/25 11:53 Blood Pressure 158/78 H 05/01/25 11:53 Pulse Oximetry (%) 95 05/01/25 11:53 Oxygen Delivery Method Room Air 05/01/25 11:53 Abdominal Pain MDM MDM Narrative MDM Narrative:: 79-year-old female with a history of hypertension, hypothyroidism, colitis, diverticulitis presents to the emergency room with a chief complaint of lower pelvic pain and diarrhea x 2 days Patient is hemodynamically stable and in no apparent distress Physical examination shows lower left quadrant abdominal pain with palpation. Patient states she has had diarrhea for the last 2 days and has a history of diverticulitis A CT of the abdomen and pelvis was completed and was negative for any diverticulitis CBC CMP urinalysis were all within normal limits Patient was discharged and educated to follow-up with primary care provider in the next 24 to 48 hours and return to the emergency room for any evidence of worsening signs or symptoms Patient data External records reviewed:: [facility] previous records Clinical information provided by:: patient Social determinants that could affect healthcare access:: none Patient has the following chronic illnesses:: No chronic illness How is presenting disease/condition affected by chronic disease/condition?: no chronic disease Evaluation data The following diagnostics were reviewed and interpreted by me:: lab results and radiology exam(s) Lab and/or radiology exams considered but not ordered:: Labs radiology exams considered and ordered Interpretation Summary: CT abdomen and pelvis-Findings: No focal liver or splenic lesions No gallstones. No pancreatic or adrenal mass. No renal or ureteral calculi, no hydronephrosis Posterior 14 mm right renal cyst Aorta is nonenlarged No pericecal inflammatory change Colonic diverticulosis Right hip hemiarthroplasty generates artifacts in the pelvis Bladder appears intact Transpedicular lumbar stabilization L5-S1 Prominent osteopenia IMPRESSION: No renal or ureteral calculi, no hydronephrosis No CT findings of appendicitis or bowel obstruction Colonic diverticulosis, no diverticulitis Medications / Prescriptions Medications or Prescriptions considered but not ordered:: Medication given Medication administrations:: Medication Administration History Discontinued Medications Acetaminophen (Acetaminophen 325 Mg Tablet) 650 mg PO X1 ONE Stop: 05/01/25 11:50 Last Admin: 05/01/25 11:57 Dose: 650 mg Documented By: CN Medication given Consultations Consultation(s) initiated? (list below): No Diagnosis Differential diagnosis abdominal pain: abdominal pain, acute appendicitis, constipation, diverticulitis, gastroenteritis and other (Diverticulitis/diverticulosis) Most likely diagnosis given after review of the tests above:: Diverticulosis Admission Indicated Admission indicated?: not indicated Admission Request Was there a request for admission?: No Disposition Plan Disposition Plan: Discharge Discharge Attestation Discharge Attestation: The patient and all family members were given an opportunity to ask questions and understood the discharge instructions. Discharge instructions specifically effects, indications for sooner follow up or return to the emergency department, and the expected course of current diagnosis. Patient condition: Stable Discharge Plan Plan Patient Disposition: HOME (Self Care) Discharge Disposition comment: Stable Prescriptions/Referrals Prescriptions/Med Rec: No Action metformin 500 mg Tablet 500 mg PO DAILY acetaminophen 500 mg Tablet 500 mg PO PRN MDD 4 PRN (Reason: Pain) levothyroxine 50 mcg Tablet 50 mcg PO DAILY cholecalciferol (vitamin D3) [Vitamin D3] 25 mcg (1,000 unit) Tablet 25 mcg PO 1XD Align (B.infantis) 4 mg Capsule 4 mg PO DAILY loperamide 2 mg capsule 2 mg PO QDAY alprazolam 0.5 mg tablet 0.5 mg PO BID PRN (Reason: Anxiety) Patient Comments: TAKE 1 TABLET BY MOUTH THREE TIMES DAILY NEEDED FOR ANXIETY pantoprazole 40 mg tablet,delayed release (DR/EC) 40 mg PO BID Patient Comments: TAKE 1 TABLET BY MOUTH DAILY benazepril 20 mg tablet 20 mg PO QDAY ondansetron 4 mg tablet,disintegrating 4 mg PO Q8H PRN (Reason: nausea and vomiting) Qty: 30 0RF lidocaine HCl [Lidocaine Viscous] 2 % solution 5 ml PO TIDPC MDD 15 mL PRN (Reason: dyspepsia) Qty: 300 0RF sucralfate [Carafate] 100 mg/mL suspension 10 ml PO TID Qty: 500 0RF Rx Instructions: swish in mouth and swallow; use after food/drink ondansetron 4 mg tablet,disintegrating 4 mg PO Q8H PRN (Reason: nausea and vomiting) Qty: 10 0RF Eliquis 5 mg Tablet 5 mg PO QDAY sennosides-docusate sodium [Senokot-S] 8.6-50 mg tablet 2 tab-cap PO QDAY PRN (Reason: constipation) Qty: 20 0RF magnesium hydroxide [Milk Of Magnesia Concentrated] 2,400 mg/10 mL suspension 30 ml PO QDAY PRN (Reason: constipation) Qty: 60 0RF ascorbic acid (vitamin C) [Vitamin C] 500 mg tablet 500 mg PO QDAY alprazolam [Xanax] 0.5 mg tablet 0.5 mg PO TID PRN (Reason: anxiety) duloxetine [Cymbalta] 60 mg capsule,delayed release(DR/EC) 60 mg PO QDAY Qty: 30 0RF ferrous sulfate 325 mg (65 mg iron) Tablet,Delayed Release (Dr/Ec) 325 mg PO QOD Qty: 30 0RF polyethylene glycol 3350 [Miralax] 17 gram/dose powder 4 g PO QDAY Qty: 510 0RF Referrals: Tyrone Langford MD [Primary Care Provider, Family Practice] - In 1 week Problem List Clinical Impression: Diverticulosis Patient/Caregiver Discharge Instructions Education Materials: Diverticulosis Diverticulitis, ED Diverticulosis Additional Instructions: Please follow-up with your primary care provider next [address] of your abdomen and pelvis was negative for any acute findings. Your blood work and urinalysis were within normal limits For any evidence of worsening signs or symptoms return the emergency room immediately Print Language: Bur[place]ian Stand Alone Forms: [employer] Award Info., Work/School Release, Patient Portal Info Letter PA/ZULEIKA Supervising Physician PA/ZULEIKA Supervising Physician: Dr. Carter
== END 2025-05-01 14:59 | disposition home or self-care (01) ==
PROVIDERS: Nurse Practitioner Family; Emergency Provider Emergency Medicine; PCP Family Medicine
DX: K57.30 Diverticulosis of large intestine without perforation or abscess without bleeding (principal); I10 Essential (primary) hypertension; E78.00 Pure hypercholesterolemia, unspecified; I48.91 Unspecified atrial fibrillation; E89.0 Postprocedural hypothyroidism; Z87.19 Personal history of other diseases of the digestive system; Z88.5 Allergy status to narcotic agent; Z88.2 Allergy status to sulfonamides; Z88.6 Allergy status to analgesic agent; Z88.1 Allergy status to other antibiotic agents; Z88.0 Allergy status to penicillin; Z88.8 Allergy status to other drugs, medicaments and biological substances
CPT/HCPCS: 36415; 74176; 80053; 81001; 85025; 87086; 99284; A9270

== ENCOUNTER 2025-05-08 20:38 | Emergency (ER) | payer MEDICARE, BC, SELFPAY ==
[2025-05-08 20:39] VITALS: BMI 31.2
--- NOTE | 2025-05-08 21:33 | PC.NURSE ---
pt did not answer
--- NOTE | 2025-05-08 22:00 | PC.NURSE ---
PT CALLED FROM [facility] NO ANSWER
--- NOTE | 2025-05-08 22:13 | PC.NURSE ---
PT CALLED FROM [facility] NO ANSWER
== END 2025-05-08 22:16 | disposition left against medical advice (07) ==
PROVIDERS: Emergency Provider Emergency Medicine
DX: Z53.21 Procedure and treatment not carried out due to patient leaving prior to being seen by health care provider (principal)

== ENCOUNTER 2025-05-13 22:21 | Emergency (ER) | payer MEDICARE, BC, SELFPAY ==
[2025-05-13 22:30] VITALS: BP 182/77; PULSE 102; RESP 20; TEMP 36.4; O2SAT 95
--- NOTE | 2025-05-13 22:55 | EKG_ITS ---
[facility] Test Date: 2025-05-13 Pat Name: MARIBEL ALAMO Department: Room: - Gender: Female Planning Official: : [id number] Requested By: Sayda Richmond Order Number: [id number] Reading MD: Sayda Richmond Measurements Intervals Converse Rate: 82 P: 83 IN: 145 QRS: -6 QRSD: 100 T: 66 QT: 378 QTc: 443 Interpretive Statements SINUS RHYTHM WITH OCCASIONAL VENTRICULAR PREMATURE COMPLEXES WITH OCCASIONAL SUPRAVENTRICULAR PREMATURE COMPLEXES POSSIBLE ANTERIOR MYOCARDIAL INFARCTION , OF INDETERMINATE AGE [30 ms Q WAVE IN V3/V4, OR R < 0.2 mV IN V4] Compared to ECG 04/17/2025 05:35:37 Ventricular premature complex(es) now present Myocardial infarct finding now present Sinus arrhythmia no longer present /store/[id number]/[id number].pdf
--- NOTE | 2025-05-13 23:01 | XR_ITS ---
Examination: Lumbar spine satisfactory alignment lumbar vertebral bodies AP single view Technique: Aneurysm Iterative Findings: Transpedicular lumbar stabilization, No fracture Intact pedicles Impression: Satisfactory alignment lumbar vertebral bodies on the AP view only
--- NOTE | 2025-05-13 23:03 | PD.EDADULT ---
ED General RME/HPI General Chief complaint: Extremity Problem,Nontraumatic Stated complaint: BILATERAL LEG NUMBNESS AND TIGLING Time Seen by Provider: 05/13/25 22:31 Arrival date/time: 05/13/25 22:21 RME / HPI RME / HPI narrative: Teena Temple is a 79 y/o female with extensive PMHx including chronic lower back pain and sciatica who comes in evaluation for shooting lower extremity pain that has been going on for a while with no associated urinary or bowel incontinence. Patient reports that she has had this symptom before but wants come get further evaluated as pain medicines were working for her. Related Data Home Medications ?Medication ?Instructions ?Recorded ?Confirmed Bifidobacterium infantis 4 mg 4 mg PO DAILY 06/27/23 02/05/25 capsule (Align (B.infantis)) acetaminophen 500 mg tablet 500 mg PO PRN PRN Pain 06/27/23 02/05/25 cholecalciferol (vitamin D3) 25 25 mcg PO 1XD 06/27/23 02/05/25 mcg (1,000 unit) tablet (Vitamin D3) levothyroxine 50 mcg tablet 50 mcg PO DAILY 06/27/23 02/05/25 metformin 500 mg tablet 500 mg PO DAILY 06/27/23 02/05/25 alprazolam 0.5 mg tablet 0.5 mg PO BID PRN Anxiety 10/28/23 02/05/25 benazepril 20 mg tablet 20 mg PO QDAY 10/28/23 02/05/25 loperamide 2 mg capsule 2 mg PO QDAY 10/28/23 02/06/25 pantoprazole 40 mg tablet,delayed 40 mg PO BID 10/28/23 02/05/25 release apixaban 5 mg tablet (Eliquis) 5 mg PO QDAY 06/11/24 02/05/25 alprazolam 0.5 mg tablet (Xanax) 0.5 mg PO TID PRN anxiety 02/05/25 02/05/25 ascorbic acid (vitamin C) 500 mg 500 mg PO QDAY 02/05/25 02/05/25 tablet (Vitamin C) Previous Rx's ?Medication ?Instructions ?Recorded ondansetron 4 mg disintegrating 4 mg PO Q8H PRN nausea and 02/22/24 tablet vomiting #30 tabs lidocaine HCl 2 % mucosal solution 5 ml PO TIDPC PRN dyspepsia #300 mL 07/02/24 (Lidocaine Viscous) sucralfate 100 mg/mL oral 10 ml PO TID #500 mL 07/02/24 suspension (Carafate) magnesium hydroxide 2,400 mg/10 mL 30 ml PO QDAY PRN constipation #60 01/22/25 oral suspension (Milk Of Magnesia mL Concentrated) sennosides 8.6 mg-docusate sodium 2 tab-cap (2 x 8.6-50 mg) PO QDAY 01/22/25 50 mg tablet (Senokot-S) PRN constipation #20 tabs duloxetine 60 mg capsule,delayed 60 mg PO QDAY #30 caps 02/14/25 release (Cymbalta) ferrous sulfate 325 mg (65 mg 325 mg PO QOD #30 tabs 02/14/25 iron) tablet,delayed release ondansetron 4 mg disintegrating 4 mg PO Q8H PRN nausea and 02/26/25 tablet vomiting #10 tabs polyethylene glycol 3350 17 4 g PO QDAY #510 grams 02/26/25 gram/dose oral powder (Miralax) Allergies Allergy/AdvReac Type Severity Reaction Status Date / Time amoxicillin (From Augmentin) Allergy Severe Hives Verified 05/13/25 22:23 aspirin Allergy Severe Abdominal Verified 05/13/25 22:23 Pain ciprofloxacin (From Cipro) Allergy Severe Gastrointestinal Verified 05/13/25 22:23 Upset clavulanic acid (From Allergy Severe Hives Verified 05/13/25 22:23 Augmentin) codeine Allergy Severe Nausea Verified 05/13/25 22:23 fluconazole Allergy Severe Rash Verified 05/13/25 22:23 gabapentin Allergy Severe Abdominal Verified 05/13/25 22:23 Pain ketorolac (From Toradol) Allergy Severe Abdominal Verified 05/13/25 22:23 Pain nalbuphine Allergy Severe Abdominal Verified 05/13/25 22:23 Pain Sulfa (Sulfonamide Allergy Severe Hives Verified 05/01/25 11:24 Antibiotics) tizanidine Allergy Severe Rash Verified 05/01/25 11:24 tramadol Allergy Severe Rash Verified 05/01/25 11:24 Review of Systems Review of Systems Narrative Review of Systems: Constitutional: No fever, chills, fatigue, weakness, weight loss HEENT: No eye pain, vision loss, ear pain, hearing loss, dysphagia, Cardiovascular: No chest pain, palpitations, edema, pain with walking Respiratory: No cough, shortness of breath, wheezing GI: No NVD, abdominal pain, constipation, blood in stool, loss of appetite, heartburn Extremities: No presence of pitting edema MSK: No back pain, joint pain, joint swelling, +leg pain bilat Neuro: No dizziness, numbness, weakness, headaches, seizures, tremors Psych: No anxiety, depression ED Exam Narrative Physical exam: General: AAOx3, NAD, HEENT: Moist mucous membranes, conjunctiva clear, EOMI, PERRLA, Cardiovascular: S1, S2, radial pulses +2 bilat, RRR Pulmonary: CTAB bilat no cough, no wheezing GI: No tenderness to light or deep palpitation, no guarding, rigidity, rebound tenderness or distension Extremities: No presence of trace or pitting edema in lower extremities bilaterally, dorsalis pedis pulses +2 bilaterally MSK: + straight leg test bilat Neuro: AAOx3, no focal motor or sensory deficits in the UE or LE bilat Psych: Good judgement, thought and behavior Course Quality Measures none Orders Category Date Time Status EKG (ED ONLY) *Do not use* NOW Care 05/13/25 22:55 Completed EKG (ED Only) Stat Exams 05/13/25 22:55 Draft XR lumbar spine 1V Stat Exams 05/13/25 23:01 Completed CYCLObenzaPRINE [Flexeril] Med 05/13/25 23:01 Discontinued 5 mg PO X1 ONE Vital Signs Vital signs: Vital Signs Temperature 97.6 F 05/13/25 22:30 Pulse Rate 102 H 05/13/25 22:30 Respiratory Rate 20 05/13/25 22:30 Blood Pressure 182/77 H 05/13/25 22:30 Pulse Oximetry (%) 95 05/13/25 22:30 Oxygen Delivery Method Room Air 05/13/25 22:30 Discharge Plan Plan Patient Disposition: Elopement Prescriptions/Referrals Prescriptions/Med Rec: No Action metformin 500 mg Tablet 500 mg PO DAILY acetaminophen 500 mg Tablet 500 mg PO PRN MDD 4 PRN (Reason: Pain) levothyroxine 50 mcg Tablet 50 mcg PO DAILY cholecalciferol (vitamin D3) [Vitamin D3] 25 mcg (1,000 unit) Tablet 25 mcg PO 1XD Align (B.infantis) 4 mg Capsule 4 mg PO DAILY loperamide 2 mg capsule 2 mg PO QDAY alprazolam 0.5 mg tablet 0.5 mg PO BID PRN (Reason: Anxiety) Patient Comments: TAKE 1 TABLET BY MOUTH THREE TIMES DAILY NEEDED FOR ANXIETY pantoprazole 40 mg tablet,delayed release (DR/EC) 40 mg PO BID Patient Comments: TAKE 1 TABLET BY MOUTH DAILY benazepril 20 mg tablet 20 mg PO QDAY ondansetron 4 mg tablet,disintegrating 4 mg PO Q8H PRN (Reason: nausea and vomiting) Qty: 30 0RF lidocaine HCl [Lidocaine Viscous] 2 % solution 5 ml PO TIDPC MDD 15 mL PRN (Reason: dyspepsia) Qty: 300 0RF sucralfate [Carafate] 100 mg/mL suspension 10 ml PO TID Qty: 500 0RF Rx Instructions: swish in mouth and swallow; use after food/drink ondansetron 4 mg tablet,disintegrating 4 mg PO Q8H PRN (Reason: nausea and vomiting) Qty: 10 0RF Eliquis 5 mg Tablet 5 mg PO QDAY sennosides-docusate sodium [Senokot-S] 8.6-50 mg tablet 2 tab-cap PO QDAY PRN (Reason: constipation) Qty: 20 0RF magnesium hydroxide [Milk Of Magnesia Concentrated] 2,400 mg/10 mL suspension 30 ml PO QDAY PRN (Reason: constipation) Qty: 60 0RF ascorbic acid (vitamin C) [Vitamin C] 500 mg tablet 500 mg PO QDAY alprazolam [Xanax] 0.5 mg tablet 0.5 mg PO TID PRN (Reason: anxiety) duloxetine [Cymbalta] 60 mg capsule,delayed release(DR/EC) 60 mg PO QDAY Qty: 30 0RF ferrous sulfate 325 mg (65 mg iron) Tablet,Delayed Release (Dr/Ec) 325 mg PO QOD Qty: 30 0RF polyethylene glycol 3350 [Miralax] 17 gram/dose powder 4 g PO QDAY Qty: 510 0RF Problem List Clinical Impression: At risk for elopement Patient/Caregiver Discharge Instructions Print Language: Tunisian MDM Narrative MDM hospital course (for use when minimal MDM required): 2300: Ordered lumbar plain film in addition to giving cyclobenzaprine 5 mg x 1. Will order EKG as patient is tachycardic at this time. 2340: Informed pt had eloped. Medication Administration(s) Medication Administration History Discontinued Medications Cyclobenzaprine HCl (Cyclobenzaprine 5 Mg Tablet) 5 mg PO X1 ONE Stop: 05/13/25 23:02 Last Admin: 05/13/25 23:23 Dose: 5 mg Documented By: CARLOS
--- NOTE | 2025-05-13 23:41 | PC.NURSE ---
PT INFORED ME THAT SHE IS GOING HOME, CANT WAIT FOR X-RAY RESULT, SHE FEELS BETTER.
== END 2025-05-13 23:42 | disposition left against medical advice (07) ==
LOC: SERX 05-14 00:17
PROVIDERS: Emergency Provider Emergency Medicine; PCP Family Medicine
DX: M79.605 Pain in left leg (principal); M79.604 Pain in right leg; M54.40 Lumbago with sciatica, unspecified side; Z53.29 Procedure and treatment not carried out because of patient's decision for other reasons; Z88.6 Allergy status to analgesic agent; Z88.5 Allergy status to narcotic agent; Z88.8 Allergy status to other drugs, medicaments and biological substances
CPT/HCPCS: 72020; 93005; 99283; A9270

== ENCOUNTER 2025-05-14 11:44 | Emergency (ER) | payer MEDICARE, BC, SELFPAY ==
[2025-05-14 11:46] VITALS: BMI 27.4
[2025-05-14 11:56] VITALS: BP 139/80; PULSE 88; RESP 17; TEMP 37.1; O2SAT 95
--- NOTE | 2025-05-14 12:15 | PC.NURSE ---
pT CAME TO TRIAGE DESK TO SAY THEY TOLD ME TO LEAVE AND GO HOME. REFUSING TO WAIT FOR ANY DISCHARGE PAPERWORK AND SIGNED AMA FORM
== END 2025-05-14 12:20 | disposition left against medical advice (07) ==
PROVIDERS: Emergency Provider Emergency Medicine
DX: Z53.21 Procedure and treatment not carried out due to patient leaving prior to being seen by health care provider (principal)
CPT/HCPCS: 99281

== ENCOUNTER 2025-06-03 19:05 | Emergency (ER) | payer MEDICARE, BC, SELFPAY ==
[2025-06-03 19:06] VITALS: BMI 31.2
[2025-06-03 19:30] VITALS: BP 161/82; PULSE 88; RESP 20; TEMP 36.7; O2SAT 96
--- NOTE | 2025-06-03 22:17 | PD.EDEXREM ---
ED Extremity Problem RME/HPI General Chief complaint: Extremity Problem,Nontraumatic Stated complaint: MUSCLE SPASMS TO BLE Time Seen by Provider: 06/03/25 19:10 Arrival date/time: 06/03/25 19:05 This is a case of 79-year-old female who came in in the emergency room for medication refill of baclofen 5 mg twice a day as needed for muscle spasm patient has history of chronic low back pain and muscle spasms of both lower extremities patient states that she was walking a lot this past Thursday and started to have leg muscle spasm denies any numbness weakness tingling sensation or incontinence to urine or stool Limitations: no limitations Related Data Home Medications ?Medication ?Instructions ?Recorded ?Confirmed Bifidobacterium infantis 4 mg 4 mg PO DAILY 06/27/23 02/05/25 capsule (Align (B.infantis)) acetaminophen 500 mg tablet 500 mg PO PRN PRN Pain 06/27/23 02/05/25 cholecalciferol (vitamin D3) 25 25 mcg PO 1XD 06/27/23 02/05/25 mcg (1,000 unit) tablet (Vitamin D3) levothyroxine 50 mcg tablet 50 mcg PO DAILY 06/27/23 02/05/25 metformin 500 mg tablet 500 mg PO DAILY 06/27/23 02/05/25 alprazolam 0.5 mg tablet 0.5 mg PO BID PRN Anxiety 10/28/23 02/05/25 benazepril 20 mg tablet 20 mg PO QDAY 10/28/23 02/05/25 loperamide 2 mg capsule 2 mg PO QDAY 10/28/23 02/06/25 pantoprazole 40 mg tablet,delayed 40 mg PO BID 10/28/23 02/05/25 release apixaban 5 mg tablet (Eliquis) 5 mg PO QDAY 06/11/24 02/05/25 alprazolam 0.5 mg tablet (Xanax) 0.5 mg PO TID PRN anxiety 02/05/25 02/05/25 ascorbic acid (vitamin C) 500 mg 500 mg PO QDAY 02/05/25 02/05/25 tablet (Vitamin C) Previous Rx's ?Medication ?Instructions ?Recorded ondansetron 4 mg disintegrating 4 mg PO Q8H PRN nausea and 02/22/24 tablet vomiting #30 tabs lidocaine HCl 2 % mucosal solution 5 ml PO TIDPC PRN dyspepsia #300 mL 07/02/24 (Lidocaine Viscous) sucralfate 100 mg/mL oral 10 ml PO TID #500 mL 07/02/24 suspension (Carafate) magnesium hydroxide 2,400 mg/10 mL 30 ml PO QDAY PRN constipation #60 01/22/25 oral suspension (Milk Of Magnesia mL Concentrated) sennosides 8.6 mg-docusate sodium 2 tab-cap (2 x 8.6-50 mg) PO QDAY 01/22/25 50 mg tablet (Senokot-S) PRN constipation #20 tabs duloxetine 60 mg capsule,delayed 60 mg PO QDAY #30 caps 02/14/25 release (Cymbalta) ferrous sulfate 325 mg (65 mg 325 mg PO QOD #30 tabs 02/14/25 iron) tablet,delayed release ondansetron 4 mg disintegrating 4 mg PO Q8H PRN nausea and 02/26/25 tablet vomiting #10 tabs polyethylene glycol 3350 17 4 g PO QDAY #510 grams 02/26/25 gram/dose oral powder (Miralax) baclofen 5 mg tablet 5 mg PO BID PRN muscle spasm #10 06/03/25 tabs Allergies Allergy/AdvReac Type Severity Reaction Status Date / Time amoxicillin (From Augmentin) Allergy Severe Hives Verified 06/03/25 19:06 aspirin Allergy Severe Abdominal Verified 06/03/25 19:06 Pain ciprofloxacin (From Cipro) Allergy Severe Gastrointestinal Verified 06/03/25 19:06 Upset clavulanic acid (From Allergy Severe Hives Verified 06/03/25 19:06 Augmentin) codeine Allergy Severe Nausea Verified 06/03/25 19:06 fluconazole Allergy Severe Rash Verified 06/03/25 19:06 gabapentin Allergy Severe Abdominal Verified 06/03/25 19:06 Pain ketorolac (From Toradol) Allergy Severe Abdominal Verified 06/03/25 19:06 Pain nalbuphine Allergy Severe Abdominal Verified 06/03/25 19:06 Pain Sulfa (Sulfonamide Allergy Severe Hives Verified 06/03/25 19:06 Antibiotics) tizanidine Allergy Severe Rash Verified 06/03/25 19:06 tramadol Allergy Severe Rash Verified 06/03/25 19:06 Review of Systems Review of Systems Systems Reviewed: All systems reviewed, normal except as documented Constitutional Constitutional: Reports system reviewed and no additional complaints, except as documented and Reports as per HPI Cardiovascular Cardiovascular: Reports system reviewed and no additional complaints, except as documented and Reports as per HPI Respiratory Respiratory: Reports system reviewed and no additional complaints, except as documented and Reports as per HPI Gastrointestinal Gastrointestinal: Reports system reviewed and no additional complaints, except as documented and Reports as per HPI Genitourinary Genitourinary: Reports system reviewed and no additional complaints, except as documented and Reports as per HPI Musculoskeletal Musculoskeletal: Reports system reviewed and no additional complaints, except as documented and Reports as per HPI Neurologic Neurologic: Reports system reviewed and no additional complaints, except as documented and Reports as per HPI Past Medical History Past Medical History NEUROLOGIC: Negative Neurological Disorders or Seizures CARDIAC: Positive Cardiac Disorders, Cardiac Arrhythmia, Atrial Fibrillation, Hypercholesterolemia and Hypertension; Negative Congestive Heart Failure RESPIRATORY: Positive Pneumonia and Sleep Apnea; Negative Chronic Obstructive Pulmonary Disease (COPD) or Asthma GASTROINTESTINAL: Positive Gastrointestinal Disorders, Gastrointestinal Bleed, Colitis, Ulcerative Colitis, Diverticulitis, Diverticulosis, Ulcer, Irritable Bowel, Obstructive Bowel, Hemorrhoids and Obesity GENITOURINARY: Positive Kidney Stones; Negative Genitourinary Disorders or Renal Disease REPRODUCTIVE: Positive Previous Pregnancies MUSCULOSKELETAL: Positive Musculoskeletal Disorders and Arthritis ENT: Positive Cataracts and Ear Infection ENDOCRINE: Positive Diabetes Mellitus Type 2 and Hypothyroidism; Negative Diabetes Mellitus Type 1 HEMATOLOGIC: Negative Blood Disorders or Sickle Cell Disease PSYCHO/SOCIAL: Positive Anxiety OTHER HISTORY: Positive Falls, Blood Transfusions, Chicken Pox, Mumps and Clostridium Difficile; Negative Blood Transfusion Reaction, Anesthesia Reactions or Cancer Family History FAMILY HISTORY: Positive Family Cardiac Disorders; Negative Family Respiratory Disorders Surgical History SURGICAL: Positive Cardiac Surgery, Endocrine Surgery, Thyroidectomy, Abdominal Surgery, Joint Replacement, Hysterectomy and Section Social History SMOKING STATUS: Never smoker SUBSTANCE USE: does not use ED Exam General Limitations: Present no limitations General appearance: Present alert, in no apparent distress and other (Patient is awake alert oriented not in distress nontoxic looking well-hydrated well-nourished) Head Head exam: Present atraumatic, normocephalic and normal inspection Eye Eye exam: Present normal appearance, PERRL and EOMI ENT ENT exam: Present normal exam, normal oropharynx and mucous membranes moist Neck Neck exam: Present normal inspection, full ROM and trachea midline; Absent tenderness, meningismus, lymphadenopathy or thyromegaly Chest Chest inspection: Present normal inspection and symmetric chest wall rise Respiratory Respiratory exam: Present normal lung sounds bilaterally; Absent respiratory distress, wheezes, stridor, accessory muscle use or prolonged expiratory phase Cardiovascular Cardiovascular exam: Present regular rate, normal rhythm and normal heart sounds; Absent bradycardia, tachycardia, irregular rhythm, systolic murmur or diastolic murmur Abdominal Exam Abdominal exam: Present soft and normal bowel sounds; Absent distention, tenderness, guarding, rebound, rigidity, diminished bowel sounds, hyperactive bowel sounds, hypoactive bowel sounds or organomegaly Extremities Exam Extremities exam: Present normal inspection and full ROM Expanded Lower Extremity Exam Lower leg exam: Present normal inspection and full ROM; Absent tenderness, swelling, abrasion, laceration, ecchymosis, deformity, crepitus, dislocation, erythema, palpable cord, Homans' sign or Achilles tendon intact Back Exam Back exam: Present normal inspection and full ROM; Absent tenderness, CVA tenderness (R), CVA tenderness (L), muscle spasm, paraspinal tenderness, vertebral tenderness, rashes, sciatic notch tenderness (R), sciatic notch tenderness (L), straight leg raise (R) or straight leg raise (L) Neurological Exam Neurological exam: Present alert, oriented X3, CN II-XII intact, reflexes normal and other (Patient using walker for ambulation); Absent motor sensory deficit Psychiatric Psychiatric exam: Present normal affect and normal mood Skin Skin exam: Present warm, dry, intact, normal color and other (Excellent skin turgor) Course Quality Measures none Vital Signs Vital signs: Vital Signs Temperature 98.0 F 06/03/25 19:30 Pulse Rate 88 06/03/25 19:30 Respiratory Rate 20 06/03/25 19:30 Blood Pressure 161/82 H 06/03/25 19:30 Pulse Oximetry (%) 96 06/03/25 19:30 Oxygen Delivery Method Room Air 06/03/25 19:30 Patient oxygen saturation is 96% in room air normal Extremity Problem MDM Narrative MDM Narrative:: This is a case of 79-year-old female who came in in the emergency room for medication refill of baclofen 5 mg twice a day as needed for muscle spasm patient has history of chronic low back pain and muscle spasms of both lower extremities patient states that she was walking a lot this past Thursday and started to have leg muscle spasm denies any numbness weakness tingling sensation or incontinence to urine or stool physical examination patient is awake alert oriented not in distress nontoxic looking well-hydrated well-nourished abdominal exam is benign nonsurgical no guarding no rebound no rigidity no tenderness back exam noted normal both lower extremities is normal no calf tenderness negative Donn signs negative Rosenthal signs no signs and symptoms of DVT baclofen was was prescribed patient is well knowledgeable regarding the medication patient will follow-up with PCP in 2 days for reevaluation she was advised to see pain management for further evaluation and treatment of his chronic low back pain and muscle spasm for any worsening symptoms or any emergent concern return precaution in the ER is advised Patient was discharged with comfortable condition walking with stable gait. Patient verbalized no further complains explained diagnosis and answered patient question. Patient is comfortable with the proposed management plan including the need to follow up with his/her primary care physician and any specialist if applicable Discussed patient for any urgent condition or worsening sx, He/She needed to go to emergency room immediately or call 911. Patient acknowledge the responsibility to follow up as instructed and to monitor her/his symptoms. For any persistence of the symptoms for more than 3-5 days return precaution advised. Discussed the result of the test and was given printed discharge instruction Patient data External records reviewed:: [facility] previous records Clinical information provided by:: patient Social determinants that could affect healthcare access:: none Patient has the following chronic illnesses:: None How is presenting disease/condition affected by chronic disease/condition?: no chronic disease Evaluation data The following diagnostics were reviewed and interpreted by me:: other (specify) (None) Lab and/or radiology exams considered but not ordered:: None Interpretation Summary: None Medications / Prescriptions Medications or Prescriptions considered but not ordered:: Given Medication administrations:: Given Consultations Consultation(s) initiated? (list below): No Diagnosis Extremity Problem Differential Diagnosis: other (Chronic low back pain muscle spasm) Most likely diagnosis given after review of the tests above:: Chronic low back pain muscle spasm Admission Indicated Admission indicated?: not indicated Explain why admission is indicated or not indicated:: Not indicated Admission Request Was there a request for admission?: No Admission Attestation Admission request attestation: Not indicated Disposition Plan Disposition Plan: Discharge Discharge Attestation Discharge Attestation: The patient and all family members were given an opportunity to ask questions and understood the discharge instructions. Discharge instructions specifically effects, indications for sooner follow up or return to the emergency department, and the expected course of current diagnosis. Patient condition: Stable Discharge Plan Plan Patient Disposition: HOME (Self Care) Patient condition on transfer: Stable Prescriptions/Referrals Prescriptions/Med Rec: New baclofen 5 mg tablet 5 mg PO BID PRN (Reason: muscle spasm) Qty: 10 0RF No Action metformin 500 mg Tablet 500 mg PO DAILY acetaminophen 500 mg Tablet 500 mg PO PRN MDD 4 PRN (Reason: Pain) levothyroxine 50 mcg Tablet 50 mcg PO DAILY cholecalciferol (vitamin D3) [Vitamin D3] 25 mcg (1,000 unit) Tablet 25 mcg PO 1XD Align (B.infantis) 4 mg Capsule 4 mg PO DAILY loperamide 2 mg capsule 2 mg PO QDAY alprazolam 0.5 mg tablet 0.5 mg PO BID PRN (Reason: Anxiety) Patient Comments: TAKE 1 TABLET BY MOUTH THREE TIMES DAILY NEEDED FOR ANXIETY pantoprazole 40 mg tablet,delayed release (DR/EC) 40 mg PO BID Patient Comments: TAKE 1 TABLET BY MOUTH DAILY benazepril 20 mg tablet 20 mg PO QDAY ondansetron 4 mg tablet,disintegrating 4 mg PO Q8H PRN (Reason: nausea and vomiting) Qty: 30 0RF lidocaine HCl [Lidocaine Viscous] 2 % solution 5 ml PO TIDPC MDD 15 mL PRN (Reason: dyspepsia) Qty: 300 0RF sucralfate [Carafate] 100 mg/mL suspension 10 ml PO TID Qty: 500 0RF Rx Instructions: swish in mouth and swallow; use after food/drink ondansetron 4 mg tablet,disintegrating 4 mg PO Q8H PRN (Reason: nausea and vomiting) Qty: 10 0RF Eliquis 5 mg Tablet 5 mg PO QDAY sennosides-docusate sodium [Senokot-S] 8.6-50 mg tablet 2 tab-cap PO QDAY PRN (Reason: constipation) Qty: 20 0RF magnesium hydroxide [Milk Of Magnesia Concentrated] 2,400 mg/10 mL suspension 30 ml PO QDAY PRN (Reason: constipation) Qty: 60 0RF ascorbic acid (vitamin C) [Vitamin C] 500 mg tablet 500 mg PO QDAY alprazolam [Xanax] 0.5 mg tablet 0.5 mg PO TID PRN (Reason: anxiety) duloxetine [Cymbalta] 60 mg capsule,delayed release(DR/EC) 60 mg PO QDAY Qty: 30 0RF ferrous sulfate 325 mg (65 mg iron) Tablet,Delayed Release (Dr/Ec) 325 mg PO QOD Qty: 30 0RF polyethylene glycol 3350 [Miralax] 17 gram/dose powder 4 g PO QDAY Qty: 510 0RF Problem List Clinical Impression: Medication refill, Muscle spasm, Chronic bilateral low back pain Patient/Caregiver Discharge Instructions Education Materials: ED Chronic Pain, ED Leg Spasm, ED Muscle Spasm Additional Instructions: Follow-up with your primary care physician in 2 days for reevaluation and to be referred to pain management doctor for pain control and for your chronic muscle spasm and chronic lower back pain worsening symptoms recurrent persistent or any emergent concerns such as numbness weakness tingling sensation incontinence to urine or stool call 911 or go to the nearest emergency room Print Language: Belizean Stand Alone Forms: [facility] Award Info., Patient Portal Info Letter PA/REGULATORY AFFAIRS ASSISTANT Supervising Physician PA/REGULATORY AFFAIRS ASSISTANT Supervising Physician: Dr. Kayce Quinonez
== END 2025-06-03 19:54 | disposition home or self-care (01) ==
LOC: SERX 19:51
PROVIDERS: Emergency Provider Emergency Medicine; PCP Family Medicine
DX: M54.50 Low back pain, unspecified (principal); M62.838 Other muscle spasm; G89.29 Other chronic pain; Z76.0 Encounter for issue of repeat prescription; Z79.01 Long term (current) use of anticoagulants; Z79.84 Long term (current) use of oral hypoglycemic drugs; Z79.890 Hormone replacement therapy
CPT/HCPCS: 99281

== ENCOUNTER 2025-06-04 15:19 | Emergency (ER) | payer MEDICARE, BC, SELFPAY ==
[2025-06-04 15:28] VITALS: BP 178/88; PULSE 101; RESP 20; TEMP 36.7; O2SAT 96; BMI 31.2
--- NOTE | 2025-06-04 15:37 | PD.EDRME ---
Rapid Medical Screening Exam E Arrival date/time: 06/04/25 15:19 This is a 79-year-old female that comes in with complaints of right lower quadrant abdominal pain. Patient states she has chronic abdominal pain for a duodenal ulcer. Patient states she is already taking her Carafate, she took Pepcid this morning approximately at 1 AM. Patient states she also took her proton pump inhibitor and she also took Maalox. Patient states it did calm down a little bit but is still bothering her. Patient complains of nausea. Patient has a history of anxiety duodenal ulcer, diabetes. I have greeted and performed a focused initial assessment of this patient. Initial appropriate labs ordered at this time. A comprehensive ED assessment and evaluation of the patient and analysis of all test and completion of medical decision making process will be conducted by additional ED provider. Chief Complaint: General Adult/Misc Complain Time Seen by Provider: 06/04/25 15:28 Vital signs: Vital Signs Temperature 98.0 F 06/04/25 15:28 Pulse Rate 101 H 06/04/25 15:28 Respiratory Rate 20 06/04/25 15:28 Blood Pressure 178/88 H 06/04/25 15:28 Pulse Oximetry (%) 96 06/04/25 15:28 Oxygen Delivery Method Room Air 06/04/25 15:28 Exam: Awake GCS 15, breathing even and unlabored, diffuse abdominal pain to the right lower quadrant, GCS 15 Clinical Impression: CBC, BMP, UA, lipase ordered.
[2025-06-04] MEDS: ONDANSETRON ODT 4 MG TABRAP PO (15:42)
[2025-06-04] MEDS: FAMOTIDINE 20 MG TABLET PO (15:42)
[2025-06-04 16:05] LABS: Basophils # (Auto) 0.1 Thou/mm3 (0.0-0.2); Basophils % (Auto) 1 % (0-2.5); Eosinophils # (Auto) 0.0 Thou/mm3 (0.0-0.5); Eosinophils % (Auto) 1 % (0-10); Hematocrit 32.9 % (36.0-46.0); Hemoglobin 10.3 g/dL (12.0-16.0); Immature Granulocytes Auto 0.02 Thou/mm3 (0.00-0.00); Lymphocytes # (Auto) 2.2 Thou/mm3 (1.0-4.8); Lymphocytes % (Auto) 29 % (10-50); Mean Corpuscular HGB Conc 31.3 g/dl (31.0-37.0); Mean Corpuscular Hemoglobin 26.5 pg (25.0-35.0); Mean Corpuscular Volume 85 fL (80-100); Monocytes # (Auto) 0.7 Thou/mm3 (0.0-0.8); Monocytes % (Auto) 10 % (0-12); Neutrophils # (Auto) 4.5 Thou/mm3 (1.8-7.7); Neutrophils % (Auto) 60 % (37-80); Nucleated Red Blood Cell # 0.00 Thou/mm3 (0.00-0.00); Nucleated Red Blood Cell % 0 /100 WBC (0); Platelet Count 380 Thou/mm3 (140-440); RDW Standard Deviation 46.8 fL (36.4-46.3); Red Blood Count 3.88 Miln/mm3 (4.00-5.20); White Blood Count 7.5 Thou/mm3 (3.6-11.0)
[2025-06-04 16:22] LABS: Alanine Aminotransferase 14 U/L (10-49); Albumin, Serum 5.0 gm/dL (3.4-4.8); Albumin/Globulin Ratio 1.9 (1.2-2.2); Alkaline Phosphatase 73 U/L (46-116); Anion Gap 11 (7-16); Aspartate Amino Transferase 18 U/L (0-34); BUN/Creatinine Ratio 12 Ratio (12-20); Bilirubin,Total 0.3 mg/dL (0.3-1.2); Blood Urea Nitrogen 13 mg/dL (9-23); Calcium 9.7 mg/dL (8.3-10.6); Calcium (Corrected) 9.7 mg/dL (8.5-10.1); Carbon Dioxide 26.7 mMol/L (20.0-31.0); Chloride 103 mMol/L (98-107); Creatinine (Component) 1.1 mg/dL (0.6-1.3); Estimated Creatinine Clearance 37.5 mL/min (>60); Globulin 2.7 gm/dL (2.3-3.5); Glucose 137 mg/dL (74-106); Lipase 27 U/L (12-53); Osmolality,Calculated 283 (275-295); Potassium 4.4 mMol/L (3.4-5.1); Sodium 141 mMol/L (136-145); Total Protein 7.7 gm/dL (5.7-8.2); eGFR 51 See Note
[2025-06-04 16:31] LABS: Collection Type, Urine Voided
--- NOTE | 2025-06-04 17:10 | PC.NURSE ---
PT DID NOT WANT TO WAIT ANY LONGER; SIGNED AMA FORM AND LEFT.
[2025-06-04 17:15] LABS: Bacteria,Urine Rare; Bilirubin,Urine Negative (Negative); Blood,Urine Negative (Negative); Clarity,Urine Clear (Clear/Hazy); Color,Urine Lt-Yellow (Lt Yel-Yel); Culture Indicated,Urine Not Indicated; Glucose, Urine Negative (Negative); Ketones,Urine Negative (Negative); Leukocyte Esterase,Urine Negative (Negative); Nitrite,Urine Negative (Negative); PH,Urine 7.5 (5.0-7.0); Protein,Urine Negative (Neg - Trace); RBC,Urine 1 /hpf (0-3); Specific Gravity,Urine 1.016 (1.001-1.035); Squamous Epithelial Cell,Urine 2 /hpf (0-5); Urobilinogen,Urine Negative mg/dL (0.0-1.0); WBC,Urine < 1 /hpf (0-5)
== END 2025-06-04 17:10 | disposition left against medical advice (07) ==
LOC: SERX 15:57
PROVIDERS: Nurse Practitioner Family; Emergency Provider Emergency Medicine; PCP Family Medicine
DX: Z53.21 Procedure and treatment not carried out due to patient leaving prior to being seen by health care provider (principal)
CPT/HCPCS: 36415; 80053; 81001; 83690; 85025; 99281; Q0162; A9270

== ENCOUNTER 2025-06-06 05:52 | Emergency (ER) | payer MEDICARE, BC, SELFPAY ==
[2025-06-06] VITALS (7 sets, daily range): BP systolic 149–179; BP diastolic 66–91; PULSE 65–80; RESP 14–20; TEMP 36.4–36.7; O2SAT 93–99; BMI 22.3
--- NOTE | 2025-06-06 05:55 | EKG_ITS ---
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
--- NOTE | 2025-06-06 06:18 | PC.NURSE ---
PT ARRIVED TO ED FROM HOME FOR WEAKNESS. PT STATES THAT SHE TOOK A XANAX, TYLENOL, AND A CBD GUMMY
--- NOTE | 2025-06-06 06:50 | XR_ITS ---
EXAMINATION: AP chest single view TECHNIQUE: Sitting AP portable chest single view Date and time: June 06, 2025, 0738 hours, comparison 04/14/2025 INDICATIONS: Coughing 3 days. FINDINGS: Mild enlargement cardiac contour Significant vascular congestion. No lobar pneumonia. Prominent osteopenia IMPRESSION: Significant vascular congestion. No lobar pneumonia
--- NOTE | 2025-06-06 06:50 | XR_ITS ---
Examination: CT brain head without contrast. 2-D sagittal coronal reconstructions Date and time of exam: June 06, 2025, 0828 hours, comparison February 28, 2025. INDICATIONS: Onset dizziness today CTDI: vol (mGy): 47.7 DLP: (mGycm): 954 Technique: Multiple CT axial sections of the brain have been obtained, 5 mm slice thickness. Contrast has not been administered. 2-D sagittal, coronal reconstructions have been obtained Low dose protocols were performed. One or more of the following dose reduction techniques were used; automated exposure control, adjustment of the mA and/or KV according to patient size, use of iterative reconstruction technique. Findings: No significant ventricular enlargement. Intra-axial or extra-axial hemorrhage density is not seen. No mass effect or midline shift Basal cisterns are not remarkable. Fourth ventricle is midline. Cranial vault intact. Impression: Negative for acute hemorrhage, mass effect or midline shift Advise clinical correlation and follow-up accordingly
[2025-06-06] MEDS: SODIUM CHLORIDE 0.9% 1000 ML 1,000 ML 999 ML IV (07:14)
[2025-06-06 07:23] LABS: Basophils # (Auto) 0.1 Thou/mm3 (0.0-0.2); Basophils % (Auto) 1 % (0-2.5); Eosinophils # (Auto) 0.0 Thou/mm3 (0.0-0.5); Eosinophils % (Auto) 0 % (0-10); Hematocrit 36.1 % (36.0-46.0); Hemoglobin 11.0 g/dL (12.0-16.0); Immature Granulocytes Auto 0.03 Thou/mm3 (0.00-0.00); Lymphocytes # (Auto) 1.6 Thou/mm3 (1.0-4.8); Lymphocytes % (Auto) 24 % (10-50); Mean Corpuscular HGB Conc 30.5 g/dl (31.0-37.0); Mean Corpuscular Hemoglobin 26.4 pg (25.0-35.0); Mean Corpuscular Volume 87 fL (80-100); Monocytes # (Auto) 0.6 Thou/mm3 (0.0-0.8); Monocytes % (Auto) 9 % (0-12); Neutrophils # (Auto) 4.5 Thou/mm3 (1.8-7.7); Neutrophils % (Auto) 66 % (37-80); Nucleated Red Blood Cell # 0.00 Thou/mm3 (0.00-0.00); Nucleated Red Blood Cell % 0 /100 WBC (0); Platelet Count 340 Thou/mm3 (140-440); RDW Standard Deviation 47.4 fL (36.4-46.3); Red Blood Count 4.17 Miln/mm3 (4.00-5.20); White Blood Count 6.9 Thou/mm3 (3.6-11.0)
[2025-06-06 07:47] LABS: INR 1.0 (0.9-1.3); Partial Thromboplastin Time 21.7 Seconds (22.0-36.0); Prothrombin Time 10.2 Seconds (9.0-12.2)
[2025-06-06 07:49] LABS: Alanine Aminotransferase 13 U/L (10-49); Albumin, Serum 5.1 gm/dL (3.4-4.8); Albumin/Globulin Ratio 1.8 (1.2-2.2); Alkaline Phosphatase 74 U/L (46-116); Anion Gap 13 (7-16); Aspartate Amino Transferase 17 U/L (0-34); BUN/Creatinine Ratio 11 Ratio (12-20); Bilirubin,Total 0.2 mg/dL (0.3-1.2); Blood Urea Nitrogen 13 mg/dL (9-23); Calcium 9.9 mg/dL (8.3-10.6); Calcium (Corrected) 9.9 mg/dL (8.5-10.1); Carbon Dioxide 28.3 mMol/L (20.0-31.0); Chloride 100 mMol/L (98-107); Creatinine (Component) 1.2 mg/dL (0.6-1.3); Estimated Creatinine Clearance 33.4 mL/min (>60); Globulin 2.8 gm/dL (2.3-3.5); Glucose 156 mg/dL (74-106); Osmolality,Calculated 284 (275-295); Potassium 4.5 mMol/L (3.4-5.1); Sodium 141 mMol/L (136-145); Total Protein 7.9 gm/dL (5.7-8.2); Troponin I < 0.002 ng/mL (0.0-0.045); eGFR 46 See Note
[2025-06-06] MEDS: Milk Of Magnesia Susp 30 ML UDC PO (09:44)
[2025-06-06] MEDS: DICYCLOMINE INJ 10 MG/ML 2ML VIAL IM (10:50)
[2025-06-06 11:21] LABS: Collection Type, Urine Clean Catch; RBC,Urine 0 /hpf (0-3); Squamous Epithelial Cell,Urine 0 /hpf (0-5)
--- NOTE | 2025-06-06 11:27 | PD.EDDIZZY ---
ED Dizzyness RME/HPI General Chief Complaint: Dizziness Stated Complaint: DIZZINESS Arrival date/time: 06/06/25 05:52 Limitations: no limitations RME / HPI RME / HPI Narrative: 79 year old female with history of atrial fibrillation on Eliquis, hypertension, diabetes, hypothyroidism IBS, duodenal ulcer, diverticulosis (with previous admission) and C.Diff presents to the ED BIBA from home for evaluation of abdominal discomfort, global weakness, and feeling dizzy today. Patient described her dizziness as feeling very faint and weak with no LOC. States she took Xanax and a GI cocktail at 04:30 AM with no improvement. Denies fevers, chills, chest pain, cough, shortness of breath, vomiting, diarrhea, or urinary symptoms. Related Data Home Medications ?Medication ?Instructions ?Recorded ?Confirmed Bifidobacterium infantis 4 mg 4 mg PO DAILY 06/27/23 02/05/25 capsule (Align (B.infantis)) acetaminophen 500 mg tablet 500 mg PO PRN PRN Pain 06/27/23 02/05/25 cholecalciferol (vitamin D3) 25 25 mcg PO 1XD 06/27/23 02/05/25 mcg (1,000 unit) tablet (Vitamin D3) levothyroxine 50 mcg tablet 50 mcg PO DAILY 06/27/23 02/05/25 metformin 500 mg tablet 500 mg PO DAILY 06/27/23 02/05/25 alprazolam 0.5 mg tablet 0.5 mg PO BID PRN Anxiety 10/28/23 02/05/25 benazepril 20 mg tablet 20 mg PO QDAY 10/28/23 02/05/25 loperamide 2 mg capsule 2 mg PO QDAY 10/28/23 02/06/25 pantoprazole 40 mg tablet,delayed 40 mg PO BID 10/28/23 02/05/25 release apixaban 5 mg tablet (Eliquis) 5 mg PO QDAY 06/11/24 02/05/25 alprazolam 0.5 mg tablet (Xanax) 0.5 mg PO TID PRN anxiety 02/05/25 02/05/25 ascorbic acid (vitamin C) 500 mg 500 mg PO QDAY 02/05/25 02/05/25 tablet (Vitamin C) Previous Rx's ?Medication ?Instructions ?Recorded ondansetron 4 mg disintegrating 4 mg PO Q8H PRN nausea and 02/22/24 tablet vomiting #30 tabs lidocaine HCl 2 % mucosal solution 5 ml PO TIDPC PRN dyspepsia #300 mL 07/02/24 (Lidocaine Viscous) sucralfate 100 mg/mL oral 10 ml PO TID #500 mL 07/02/24 suspension (Carafate) magnesium hydroxide 2,400 mg/10 mL 30 ml PO QDAY PRN constipation #60 01/22/25 oral suspension (Milk Of Magnesia mL Concentrated) sennosides 8.6 mg-docusate sodium 2 tab-cap (2 x 8.6-50 mg) PO QDAY 01/22/25 50 mg tablet (Senokot-S) PRN constipation #20 tabs duloxetine 60 mg capsule,delayed 60 mg PO QDAY #30 caps 02/14/25 release (Cymbalta) ferrous sulfate 325 mg (65 mg 325 mg PO QOD #30 tabs 02/14/25 iron) tablet,delayed release ondansetron 4 mg disintegrating 4 mg PO Q8H PRN nausea and 02/26/25 tablet vomiting #10 tabs polyethylene glycol 3350 17 4 g PO QDAY #510 grams 02/26/25 gram/dose oral powder (Miralax) baclofen 5 mg tablet 5 mg PO BID PRN muscle spasm #10 06/03/25 tabs pantoprazole 40 mg granules 40 mg PO BID ULCER #30 ea 06/06/25 delayed-release for susp in packet (Protonix) Allergies Allergy/AdvReac Type Severity Reaction Status Date / Time amoxicillin (From Augmentin) Allergy Severe Hives Verified 06/04/25 15:22 aspirin Allergy Severe Abdominal Verified 06/04/25 15:22 Pain ciprofloxacin (From Cipro) Allergy Severe Gastrointestinal Verified 06/04/25 15:22 Upset clavulanic acid (From Allergy Severe Hives Verified 06/04/25 15:22 Augmentin) codeine Allergy Severe Nausea Verified 06/04/25 15:22 fluconazole Allergy Severe Rash Verified 06/04/25 15:22 gabapentin Allergy Severe Abdominal Verified 06/04/25 15:22 Pain ketorolac (From Toradol) Allergy Severe Abdominal Verified 06/04/25 15:22 Pain nalbuphine Allergy Severe Abdominal Verified 06/04/25 15:22 Pain Sulfa (Sulfonamide Allergy Severe Hives Verified 06/04/25 15:22 Antibiotics) tizanidine Allergy Severe Rash Verified 06/04/25 15:22 tramadol Allergy Severe Rash Verified 06/04/25 15:22 Review of Systems Review of Systems Systems Reviewed: All systems reviewed, normal except as documented Past Medical History Past Medical History CARDIAC: Positive Cardiac Disorders, Cardiac Arrhythmia, Atrial Fibrillation, Hypercholesterolemia and Hypertension RESPIRATORY: Positive Pneumonia and Sleep Apnea GASTROINTESTINAL: Positive Gastrointestinal Disorders, Gastrointestinal Bleed, Colitis, Ulcerative Colitis, Diverticulitis, Diverticulosis, Ulcer, Irritable Bowel, Obstructive Bowel, Hemorrhoids and Obesity GENITOURINARY: Positive Kidney Stones REPRODUCTIVE: Positive Previous Pregnancies MUSCULOSKELETAL: Positive Musculoskeletal Disorders and Arthritis ENT: Positive Cataracts and Ear Infection ENDOCRINE: Positive Diabetes Mellitus Type 2 and Hypothyroidism PSYCHO/SOCIAL: Positive Anxiety OTHER HISTORY: Positive Falls, Blood Transfusions, Chicken Pox, Mumps and Clostridium Difficile Family History FAMILY HISTORY: Positive Family Cardiac Disorders Surgical History SURGICAL: Positive Cardiac Surgery, Endocrine Surgery, Thyroidectomy, Abdominal Surgery, Joint Replacement, Hysterectomy and Section Social History SMOKING STATUS: Never smoker SUBSTANCE USE: does not use ED Exam General Limitations: Present no limitations General appearance: Present alert and in no apparent distress Head Head exam: Present atraumatic, normocephalic and normal inspection Eye Eye exam: Present normal appearance, PERRL and EOMI ENT ENT exam: Present normal exam, normal oropharynx and mucous membranes moist Neck Neck exam: Present normal inspection, full ROM and trachea midline Chest Chest inspection: Present normal inspection and symmetric chest wall rise Respiratory Respiratory exam: Present normal lung sounds bilaterally Cardiovascular Cardiovascular exam: Present regular rate, normal rhythm and normal heart sounds Abdominal Exam Abdominal exam: Present soft and normal bowel sounds; Absent distention, tenderness, guarding, rebound or rigidity Extremities Exam Extremities exam: Present normal inspection and full ROM Back Exam Back exam: Present normal inspection and full ROM Neurological Exam Neurological exam: Present alert, oriented X3 and CN II-XII intact Psychiatric Psychiatric exam: Present normal affect and normal mood Skin Skin exam: Present warm, dry, intact and normal color Course Quality Measures none Orders Category Date Time Status 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 Care 06/06/25 06:50 Completed Continuous Pulse Oximetry NOW Care 06/06/25 06:50 Completed EKG (ED ONLY) *Do not use* NOW Care 06/06/25 05:55 Completed In and Out Catheter X1 Care 06/06/25 11:04 Completed Insert IV NOW Care 06/06/25 06:[address] head/brain wo con Stat Exams 06/06/25 06:50 Completed EKG (ED Only) Stat Exams 06/06/25 05:55 Draft XR chest 1V portable Stat Exams 06/06/25 06:50 Completed CBC Stat Lab 06/06/25 07:02 Completed Comprehensive Metabolic Panel Stat Lab 06/06/25 07:02 Completed Partial Thromboplastin Time Stat Lab 06/06/25 07:02 Completed Prothrombin Time with INR Stat Lab 06/06/25 07:02 Completed Troponin I Stat Lab 06/06/25 07:02 Completed Urinalysis Stat Lab 06/06/25 11:05 Completed Dicyclomine Inj [Bentyl Inj] Med 06/06/25 10:44 Discontinued 10 mg IM X1 ONE Milk Of Magnesia Susp [Mom Susp] Med 06/06/25 07:26 Discontinued 30 ml PO X1 ONE Pantoprazole Inj [Protonix Inj] Med 06/06/25 07:26 Discontinued 40 mg IVP X1 ONE Sodium Chloride 0.9% 1000 ml [Ns] 1,000 ml Med 06/06/25 06:50 Discontinued IV 999 mls/hr Vital Signs Vital signs: Vital Signs Temperature 97.6 F 06/06/25 06:08 Pulse Rate 65 06/06/25 06:08 Respiratory Rate 14 06/06/25 06:08 Blood Pressure 178/78 H 06/06/25 06:08 Pulse Oximetry (%) 93 L 06/06/25 06:08 Oxygen Delivery Method Room Air 06/06/25 06:08 Pulse ox is 93% on room air which is low. Dizziness MDM Narrative MDM Narrative:: Mckenzie Ivy am scribing for and in the presence of Dr. Steel. Patient remains clinically stable throughout the emergency department visit. We reviewed all the results, analysis, and treatment plans. Patient is amenable to discharge. Strict return precautions were outlined. Patient data External records reviewed:: [facility] previous records and EMS form Clinical information provided by:: patient and EMS Social determinants that could affect healthcare access:: none Patient has the following chronic illnesses:: atrial fibrillation on Eliquis, hypertension, diabetes, hypothyroidism IBS, duodenal ulcer, diverticulosis (with previous admission) and C.Diff How is presenting disease/condition affected by chronic disease/condition?: exacerbated by Evaluation data The following diagnostics were reviewed and interpreted by me:: lab results, radiology exam(s) and EKG tracing(s) (EKG @ 06:02 AM. Normal sinus rhythm, rate 75, nonspecific T-wave abnormality, no STEMI. ) Lab and/or radiology exams considered but not ordered:: None Interpretation Summary: Ordering Physician: Ruben Steel MD Date of Service: 06/06/25 Procedure(s): XR chest 1V portable Accession Number(s): [id number] cc: Ruben Steel MD; Miles Navas MD; Tyrone Langford MD~ EXAMINATION: AP chest single view TECHNIQUE: Sitting AP portable chest single view Date and time: June 06, 2025, 0738 hours, comparison 04/14/2025 INDICATIONS: Coughing 3 days. FINDINGS: Mild enlargement cardiac contour Significant vascular congestion. No lobar pneumonia. Prominent osteopenia IMPRESSION: Significant vascular congestion. No lobar pneumonia Dictated By: Miles Navas MD Signed By: <Electronically signed by Miles Navas MD in OV> 06/06/25 1034 Ordering Physician: Ruben Steel MD Date of Service: 06/06/25 Procedure(s): CT head/brain wo con Accession Number(s): [id number] cc: Ruben Steel MD; Miles Navas MD; Tyrone Langford MD~ Examination: CT brain head without contrast. 2-D sagittal coronal reconstructions Date and time of exam: June 06, 2025, 0828 hours, comparison February 28, 2025. INDICATIONS: Onset dizziness today CTDI: vol (mGy): 47.7 DLP: (mGycm): 954 Technique: Multiple CT axial sections of the brain have been obtained, 5 mm slice thickness. Contrast has not been administered. 2-D sagittal, coronal reconstructions have been obtained Low dose protocols were performed. One or more of the following dose reduction techniques were used; automated exposure control, adjustment of the mA and/or KV according to patient size, use of iterative reconstruction technique. Findings: No significant ventricular enlargement. Intra-axial or extra-axial hemorrhage density is not seen. No mass effect or midline shift Basal cisterns are not remarkable. Fourth ventricle is midline. Cranial vault intact. Impression: Negative for acute hemorrhage, mass effect or midline shift Advise clinical correlation and follow-up accordingly Dictated By: Miles Navas MD Signed By: <Electronically signed by Miles Navas MD in OV> 06/06/25 1019 Medications / Prescriptions Medications or Prescriptions considered but not ordered:: None Medication administrations:: Medication Administration History Discontinued Medications Dicyclomine HCl (Dicyclomine Inj 10 Mg/Ml 2ml Vial) 10 mg IM X1 ONE Stop: 06/06/25 10:45 Last Admin: 06/06/25 10:50 Dose: 10 mg Documented By: Sodium Chloride (Ns) 1,000 mls @ 999 mls/hr IV .Q1H1M ONE Stop: 06/06/25 07:50 Last Infusion: 06/06/25 09:47 Dose: Infused Documented By: Admin: 06/06/25 07:14 Dose: 999 mls/hr Documented By: Magnesium Hydroxide (Milk Of Magnesia Susp 30 Ml Udc) 30 ml PO X1 ONE; Protocol Stop: 06/06/25 07:27 Last Admin: 06/06/25 09:44 Dose: 30 ml Documented By: Pantoprazole Sodium (Pantoprazole Inj 40 Mg Vial) 40 mg IVP X1 ONE Stop: 06/06/25 07:27 Last Admin: 06/06/25 09:44 Dose: 40 mg Documented By: See above Consultations Consultation(s) initiated? (list below): No Diagnosis Most likely diagnosis given after review of the tests above:: Gastritis Abdominal pain Admission Indicated Admission indicated?: not indicated Admission Request Was there a request for admission?: No Disposition Plan Disposition Plan: Discharge Discharge Attestation Discharge Attestation: The patient and all family members were given an opportunity to ask questions and understood the discharge instructions. Discharge instructions specifically effects, indications for sooner follow up or return to the emergency department, and the expected course of current diagnosis. Patient condition: Stable Discharge Plan Plan Patient Disposition: HOME (Self Care) Patient condition on transfer: Stable Prescriptions/Referrals Prescriptions/Med Rec: New pantoprazole [Protonix] [address] for susp in packet 40 mg PO BID MDD 2 Qty: 30 0RF No Action metformin 500 mg Tablet 500 mg PO DAILY acetaminophen 500 mg Tablet 500 mg PO PRN MDD 4 PRN (Reason: Pain) levothyroxine 50 mcg Tablet 50 mcg PO DAILY cholecalciferol (vitamin D3) [Vitamin D3] 25 mcg (1,000 unit) Tablet 25 mcg PO 1XD Align (B.infantis) 4 mg Capsule 4 mg PO DAILY loperamide 2 mg capsule 2 mg PO QDAY alprazolam 0.5 mg tablet 0.5 mg PO BID PRN (Reason: Anxiety) Patient Comments: TAKE 1 TABLET BY MOUTH THREE TIMES DAILY NEEDED FOR ANXIETY pantoprazole 40 mg tablet,delayed release (DR/EC) 40 mg PO BID Patient Comments: TAKE 1 TABLET BY MOUTH DAILY benazepril 20 mg tablet 20 mg PO QDAY ondansetron 4 mg tablet,disintegrating 4 mg PO Q8H PRN (Reason: nausea and vomiting) Qty: 30 0RF lidocaine HCl [Lidocaine Viscous] 2 % solution 5 ml PO TIDPC MDD 15 mL PRN (Reason: dyspepsia) Qty: 300 0RF sucralfate [Carafate] 100 mg/mL suspension 10 ml PO TID Qty: 500 0RF Rx Instructions: swish in mouth and swallow; use after food/drink ondansetron 4 mg tablet,disintegrating 4 mg PO Q8H PRN (Reason: nausea and vomiting) Qty: 10 0RF baclofen 5 mg tablet 5 mg PO BID PRN (Reason: muscle spasm) Qty: 10 0RF Eliquis 5 mg Tablet 5 mg PO QDAY sennosides-docusate sodium [Senokot-S] 8.6-50 mg tablet 2 tab-cap PO QDAY PRN (Reason: constipation) Qty: 20 0RF magnesium hydroxide [Milk Of Magnesia Concentrated] 2,400 mg/10 mL suspension 30 ml PO QDAY PRN (Reason: constipation) Qty: 60 0RF ascorbic acid (vitamin C) [Vitamin C] 500 mg tablet 500 mg PO QDAY alprazolam [Xanax] 0.5 mg tablet 0.5 mg PO TID PRN (Reason: anxiety) duloxetine [Cymbalta] 60 mg capsule,delayed release(DR/EC) 60 mg PO QDAY Qty: 30 0RF ferrous sulfate 325 mg (65 mg iron) Tablet,Delayed Release (Dr/Ec) 325 mg PO QOD Qty: 30 0RF polyethylene glycol 3350 [Miralax] 17 gram/dose powder 4 g PO QDAY Qty: 510 0RF Referrals: Tyrone Langford MD [Primary Care Provider, Family Practice] - In 1 week Problem List Clinical Impression: Gastritis and duodenitis, Abdominal pain Patient/Caregiver Discharge Instructions Discharge Activity: activity as tolerated Additional Instructions: Resume taking Protonix twice a day as prescribed. Follow-up with your doctor as soon as you can schedule the appointment. Eat a bland diet. Print Language: Georgian Stand Alone Forms: [employer] Award Info., Patient Portal Info Letter
[2025-06-06 11:29] LABS: Bilirubin,Urine Negative (Negative); Blood,Urine Negative (Negative); Clarity,Urine Clear (Clear/Hazy); Color,Urine Colorless (Lt Yel-Yel); Glucose, Urine Negative (Negative); Hyaline Casts,Urine < 1 /hpf (0-1); Ketones,Urine Negative (Negative); Leukocyte Esterase,Urine Negative (Negative); Nitrite,Urine Negative (Negative); PH,Urine 8.0 (5.0-7.0); Protein,Urine Negative (Neg - Trace); Specific Gravity,Urine 1.006 (1.001-1.035); Urobilinogen,Urine Negative mg/dL (0.0-1.0); WBC,Urine < 1 /hpf (0-5)
--- NOTE | 2025-06-06 12:03 | PC.NURSE ---
PT HAD BM, LOOSE & WATER & YELLOW IN NATURE. PT REPORTS, I HAVE HX OF IBS; I TEND TO HAVE THESE KINDS OF BOWEL MOVEMENT. PT GIVEN PERINEAL CARE WITH WARM BATH CLOTHS. PT PLACED IN NEW BRIEFS; NEW CHUCKS PLACED UNDER PT AT THIS TIME.
== END 2025-06-06 12:11 | disposition home or self-care (01) ==
PROVIDERS: Emergency Provider Family Medicine; PCP Family Medicine
DX: K29.80 Duodenitis without bleeding (principal); K29.70 Gastritis, unspecified, without bleeding; E03.9 Hypothyroidism, unspecified; E11.9 Type 2 diabetes mellitus without complications; I10 Essential (primary) hypertension; I48.91 Unspecified atrial fibrillation; Z79.01 Long term (current) use of anticoagulants; Z79.84 Long term (current) use of oral hypoglycemic drugs; Z79.890 Hormone replacement therapy
CPT/HCPCS: 36415; 51701; 70450; 71045; 80053; 81001; 84484; 85025; 85610; 85730; 93005; 96361; 96372; 96374; 99284; J0500; J2470; J7030; A9270

== ENCOUNTER 2025-06-10 14:44 | Emergency (ER) | payer MEDICARE, BC, SELFPAY ==
[2025-06-10 14:44] VITALS: BMI 31.2
[2025-06-10 15:09] VITALS: BP 172/94; PULSE 93; RESP 18; TEMP 36.8; O2SAT 97
--- NOTE | 2025-06-10 15:27 | EKG_ITS ---
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1945 Requested By: Ese Rodriguez Order Number: [id number] Reading MD: Ese Rodriguez Measurements Intervals [place] Rate: 80 P: 34 MA: 126 QRS: -16 QRSD: 112 T: 81 QT: 366 QTc: 424 Interpretive Statements SINUS RHYTHM WITH SINUS ARRHYTHMIA LEFT VENTRICULAR HYPERTROPHY AND ST-T CHANGE [VOLTAGE CRITERIA PLUS ST/T ABNORMALITY] POSSIBLE ANTEROSEPTAL MYOCARDIAL INFARCTION , OF INDETERMINATE AGE [30 ms Q WAVE IN V1-V4] Compared to ECG 06/06/2025 06:02:53 Left ventricular hypertrophy now present ST (T wave) deviation now present Myocardial infarct finding now present T-wave abnormality no longer present /store/S0/[id number]/[id number].pdf
--- NOTE | 2025-06-10 15:27 | XR_ITS ---
EXAMINATION: PA chest single view TECHNIQUE: Upright PA chest single view Date and time: June 10, 2025, 1538 hours, comparison June 06, 2025. INDICATIONS: Shortness of breath today. FINDINGS: Mild enlargement cardiac contour. Moderate vascular congestion. No kapil pulmonary edema or lobar pneumonia. Significant osteopenia IMPRESSION: Moderate vascular congestion
--- NOTE | 2025-06-10 15:28 | PD.EDRME ---
Rapid Medical Screening Exam COUNT INCLUDES THE [facility] Arrival date/time: 06/10/25 14:44 This is a 79-year-old female that comes into the emergency room with complaints of cold sweats. Patient states she feels weird. Patient states that she feels like her body is tingly. Patient complain of shortness of breath. Patient has been in the emergency room several times in the past few weeks for complaints of abdominal pain. Patient was having leg cramping and was started on baclofen and patient states she thinks she is reacting to the baclofen. I have greeted and performed a focused initial assessment of this patient. Initial appropriate labs ordered at this time. A comprehensive ED assessment and evaluation of the patient and analysis of all test and completion of medical decision making process will be conducted by additional ED provider. Chief Complaint: Abdominal Pain Time Seen by Provider: 06/10/25 15:00 Vital signs: Vital Signs Temperature 98.2 F 06/10/25 15:09 Pulse Rate 93 06/10/25 15:09 Respiratory Rate 18 06/10/25 15:09 Blood Pressure 172/94 H 06/10/25 15:09 Pulse Oximetry (%) 97 06/10/25 15:09 Oxygen Delivery Method Room Air 06/10/25 15:09 Exam: Alert and oriented, breathing even unlabored diffuse abdominal pain Clinical Impression: Shortness of breath, abdominal pain
[2025-06-10 15:57] LABS: Collection Type, Urine Voided
[2025-06-10 16:14] LABS: Basophils # (Auto) 0.0 Thou/mm3 (0.0-0.2); Basophils % (Auto) 1 % (0-2.5); Eosinophils # (Auto) 0.0 Thou/mm3 (0.0-0.5); Eosinophils % (Auto) 0 % (0-10); Hematocrit 34.7 % (36.0-46.0); Hemoglobin 10.6 g/dL (12.0-16.0); Immature Granulocytes Auto 0.02 Thou/mm3 (0.00-0.00); Lymphocytes # (Auto) 2.1 Thou/mm3 (1.0-4.8); Lymphocytes % (Auto) 26 % (10-50); Mean Corpuscular HGB Conc 30.5 g/dl (31.0-37.0); Mean Corpuscular Hemoglobin 26.3 pg (25.0-35.0); Mean Corpuscular Volume 86 fL (80-100); Monocytes # (Auto) 0.8 Thou/mm3 (0.0-0.8); Monocytes % (Auto) 10 % (0-12); Neutrophils # (Auto) 5.2 Thou/mm3 (1.8-7.7); Neutrophils % (Auto) 63 % (37-80); Nucleated Red Blood Cell # 0.00 Thou/mm3 (0.00-0.00); Nucleated Red Blood Cell % 0 /100 WBC (0); Platelet Count 381 Thou/mm3 (140-440); RDW Standard Deviation 47.8 fL (36.4-46.3); Red Blood Count 4.03 Miln/mm3 (4.00-5.20); White Blood Count 8.2 Thou/mm3 (3.6-11.0)
[2025-06-10 16:17] LABS: Bilirubin,Urine Negative (Negative); Blood,Urine Negative (Negative); Clarity,Urine Clear (Clear/Hazy); Color,Urine Lt-Yellow (Lt Yel-Yel); Culture Indicated,Urine Not Indicated; Glucose, Urine Negative (Negative); Ketones,Urine Negative (Negative); Leukocyte Esterase,Urine Positive (Negative); Nitrite,Urine Negative (Negative); PH,Urine 6.0 (5.0-7.0); Protein,Urine Negative (Neg - Trace); RBC,Urine 5 /hpf (0-3); Specific Gravity,Urine 1.022 (1.001-1.035); Squamous Epithelial Cell,Urine 5 /hpf (0-5); Urobilinogen,Urine Negative mg/dL (0.0-1.0); WBC,Urine 4 /hpf (0-5)
[2025-06-10] MEDS: ACETAMINOPHEN 500 MG TABLET PO (16:21)
[2025-06-10 16:23] LABS: Alanine Aminotransferase 12 U/L (10-49); Albumin, Serum 5.0 gm/dL (3.4-4.8); Albumin/Globulin Ratio 1.8 (1.2-2.2); Alkaline Phosphatase 76 U/L (46-116); Anion Gap 10 (7-16); Aspartate Amino Transferase 15 U/L (0-34); BUN/Creatinine Ratio 12 Ratio (12-20); Bilirubin,Total 0.2 mg/dL (0.3-1.2); Blood Urea Nitrogen 16 mg/dL (9-23); Calcium 9.7 mg/dL (8.3-10.6); Calcium (Corrected) 9.7 mg/dL (8.5-10.1); Carbon Dioxide 28.1 mMol/L (20.0-31.0); Chloride 104 mMol/L (98-107); Creatinine (Component) 1.3 mg/dL (0.6-1.3); Estimated Creatinine Clearance 31.7 mL/min (>60); Globulin 2.8 gm/dL (2.3-3.5); Glucose 154 mg/dL (74-106); Osmolality,Calculated 287 (275-295); Potassium 4.1 mMol/L (3.4-5.1); Sodium 142 mMol/L (136-145); Total Protein 7.8 gm/dL (5.7-8.2); Troponin I < 0.002 ng/mL (0.0-0.045); eGFR 42 See Note
[2025-06-10 16:50] LABS: B-Type Natriuretic Peptide 25 pg/mL (0-100)
[2025-06-10] MEDS: MG HYD/AL HYD/SIME (Maalox Reg) SUSP 30 ML UDC PO (17:14)
[2025-06-10] MEDS: LIDOCAINE VISCOUS 2% 15 ML UDC 10 ML PO (17:14)
--- NOTE | 2025-06-10 17:39 | EDNOTE_ITS ---
<Statement entered by Jenniffer Santana MD - 06/11/25 14:33> As co-signing physician, I was present and available for consult prn. I concur with the plan and care as documented by the midlevel provider. ED General RME/HPI General Chief complaint: Abdominal Pain Stated complaint: HANDS ARE TINGLING ; ABD PAIN Time Seen by Provider: 06/10/25 15:00 Arrival date/time: 06/10/25 14:44 79-year-old female patient was brought in for evaluation regarding epigastric pain. Incident happened after patient took her baclofen. Described as burning- like sensation severity moderate associated with dizziness and tingling sensation and drowsiness. Patient denies any vomiting no fever no other complaints noted. RME / HPI RME / HPI narrative: 06/10/25 14:44 This is a 79-year-old female that comes into the emergency room with complaints of cold sweats. Patient states she feels weird. Patient states that she feels like her body is tingly. Patient complain of shortness of breath. Patient has been in the emergency room several times in the past few weeks for complaints of abdominal pain. Patient was having leg cramping and was started on baclofen and patient states she thinks she is reacting to the baclofen. I have greeted and performed a focused initial assessment of this patient. Initial appropriate labs ordered at this time. A comprehensive ED assessment and evaluation of the patient and analysis of all test and completion of medical decision making process will be conducted by additional ED provider. Exam: Alert and oriented, breathing even unlabored diffuse abdominal pain Impression: Shortness of breath, abdominal pain Related Data Home Medications ?Medication ?Instructions ?Recorded ?Confirmed Bifidobacterium infantis 4 mg 4 mg PO DAILY 06/27/23 0 02/05/25 capsule (Align (B.infantis)) acetaminophen 500 mg tablet 500 mg PO PRN PRN Pain 02/05/25 cholecalciferol (vitamin D3) 25 25 mcg PO 1XD 06/27/23 02/05/25 mcg (1,000 unit) tablet (Vitamin D3) levothyroxine 50 mcg tablet 50 mcg PO DAILY 06/27/23 0 02/05/25 metformin 500 mg tablet 500 mg PO DAILY 06/27/23 alprazolam 0.5 mg tablet 0.5 mg PO BID PRN Anxiety 02/05/25 benazepril 20 mg tablet 20 mg PO QDAY 10/28/2302/05 loperamide 2 mg capsule 2 mg PO QDAY 10/28/23 pantoprazole 40 mg tablet,delayed 40 mg PO BID 4 02/05/25 release apixaban 5 mg tablet (Eliquis) 5 mg PO QDAY 06/11/24 0 02/05/25 alprazolam 0.5 mg tablet (Xanax) 0.5 mg PO TID PRN anx iety 02/05/25 02/05/25 ascorbic acid (vitamin C) 500 mg 500 mg PO QDAY 02/05/25 tablet (Vitamin C) Previous Rx's ?Medication ?Instructions ?Recorded ondansetron 4 mg disintegrating 4 mg PO Q8H PRN nausea and 02/22/24 tablet vomiting #30 tabs lidocaine HCl 2 % mucosal solution 5 ml PO TIDPC PRN d yspepsia #300 mL 07/02/24 (Lidocaine Viscous) sucralfate 100 mg/mL oral 10 ml PO TID #500 mL 4 suspension (Carafate) magnesium hydroxide 2,400 mg/10 mL 30 ml PO QDAY PRN c onstipation #60 01/22/25 oral suspension (Milk Of Magnesia mL Concentrated) sennosides 8.6 mg-docusate sodium 2 tab-cap (2 x 8.6-5 0 mg) PO QDAY 01/22/25 50 mg tablet (Senokot-S) PRN constipation #20 tabs duloxetine 60 mg capsule,delayed 60 mg PO QDAY #30 cap s 02/14/25 release (Cymbalta) ferrous sulfate 325 mg (65 mg 325 mg PO QOD #30 tabs 0 02/14/25 iron) tablet,delayed release ondansetron 4 mg disintegrating 4 mg PO Q8H PRN nausea and 02/26/25 tablet vomiting #10 tabs polyethylene glycol 3350 17 4 g PO QDAY #510 grams gram/dose oral powder (Miralax) baclofen 5 mg tablet 5 mg PO BID PRN muscle spasm #10 10/25/25 tabs pantoprazole 40 mg granules 40 mg PO BID ULCER #30 ea 06/06/25 delayed-release for susp in packet (Protonix) Allergies Allergy/AdvReac Type Severity Reaction Status Date / Time amoxicillin (From Augmentin) Allergy Severe Hives Verified 06/10/25 14:47 aspirin Allergy Severe Abdominal Verified 06/10/25 14:47 Pain ciprofloxacin (From Cipro) Allergy Severe Gastrointestinal Verified 06/10/25 14:47 Upset clavulanic acid (From Allergy Severe Hives Verified 06/10/25 14:47 Augmentin) codeine Allergy Severe Nausea Verified 06/10/25 14:47 fluconazole Allergy Severe Rash Verified 06/10/25 14:47 gabapentin Allergy Severe Abdominal Verified 06/10/25 14:47 Pain ketorolac (From Toradol) Allergy Severe Abdominal Verified 06/10/25 14:47 Pain nalbuphine Allergy Severe Abdominal Verified 06/10/25 14:47 Pain Sulfa (Sulfonamide Allergy Severe Hives Verified 06/10/25 14:47 Antibiotics) tizanidine Allergy Severe Rash Verified 06/10/25 14:47 tramadol Allergy Severe Rash Verified 06/10/25 14:47 Review of Systems Review of Systems Narrative Review of Systems: Review of system reviewed and within normal limits except mentioned in HPI ED Exam Narrative Physical exam: VITAL SIGNS: Reviewed. GENERAL APPEARANCE: Alert and interactive, follows commands, no acute distress, HEAD AND FACE: Non-traumatic. ENT: PERRL, pink conjunctivitis, eyelid no trauma, Mucous membrane moist. NECK: Supple, nontender, no nuchal rigidity. CHEST: No tenderness, no crepitus, no paradoxical movement, no retractions. LUNGS: Clear, well ventilated, symmetric, no rales, no wheezing, no ronchi, no stridor, good breath sounds bilaterally. HEART: Regular rate, regular rhythm, no murmur, no gallops. ABDOMEN: Soft, positive bowel sounds, nondistended, no guarding, nontender, no rebound, no masses, RECTAL: Deferred. GENITAL: Deferred. NEUROLOGICAL: Gross motor function intact sensory function intact, Appropriate for age. MUSCULOSKELETAL: low back nontender, full range of motion. EXTREMITIES: Nontender, full range of motion. SKIN: Color pink, dry, no rash, no lacerations, no abrasions, no contusions. LYMPHATICS: Deferred. Course Quality Measures none Orders Category Date Time Status EKG (ED ONLY) *Do not use* NOW Care 06/10/25 15:27 Completed EKG (ED Only) Stat Exams 06/10/25 15:27 Draft XR chest 1V Stat Exams 06/10/25 15:27 Completed BNP [B-Type Natriuretic Peptide] Stat Lab 06/10/25 15:40 Completed CBC Stat Lab 06/10/25 15:40 Completed Comprehensive Metabolic Panel Stat Lab 06/10/25 15:40 Completed Troponin I Stat Lab 06/10/25 15:40 Completed Urinalysis, C/S if Indicated Stat Lab 06/10/25 15:48 Completed Acetaminophen Tab [Tylenol ES Tab] Med 06/10/25 16:17 Discontinued 500 mg PO X1 ONE Lidocaine 2% Viscous [Xylocaine 2% Viscous] Med 06/10/25 17:04 Discontinued 10 ml PO X1 ONE mg Hyd/Al Hyd/Jennifer Susp [Maalox Susp] Med 06/10/25 17:04 Discontinued 30 ml PO X1 ONE Vital Signs Vital signs: Vital Signs Temperature 98.2 F 06/10/25 15:09 Pulse Rate 93 06/10/25 15:09 Respiratory Rate 18 06/10/25 15:09 Blood Pressure 172/94 H 06/10/25 15:09 Pulse Oximetry (%) 97 06/10/25 15:09 Oxygen Delivery Method Room Air 06/10/25 15:09 Discharge Plan Plan Patient Disposition: HOME (Self Care) Discharge Disposition comment: Stable Prescriptions/Referrals Prescriptions/Med Rec: No Action metformin 500 mg Tablet 500 mg PO DAILY acetaminophen 500 mg Tablet 500 mg PO PRN MDD 4 PRN (Reason: Pain) levothyroxine 50 mcg Tablet 50 mcg PO DAILY cholecalciferol (vitamin D3) [Vitamin D3] 25 mcg (1,000 unit) Tablet 25 mcg PO 1XD Align (B.infantis) 4 mg Capsule 4 mg PO DAILY loperamide 2 mg capsule 2 mg PO QDAY alprazolam 0.5 mg tablet 0.5 mg PO BID PRN (Reason: Anxiety) Patient Comments: TAKE 1 TABLET BY MOUTH THREE TIMES DAILY NEEDED FOR ANXIETY pantoprazole 40 mg tablet,delayed release (DR/EC) 40 mg PO BID Patient Comments: TAKE 1 TABLET BY MOUTH DAILY benazepril 20 mg tablet 20 mg PO QDAY ondansetron 4 mg tablet,disintegrating 4 mg PO Q8H PRN (Reason: nausea and vomiting) Qty: 30 0RF lidocaine HCl [Lidocaine Viscous] 2 % solution 5 ml PO TIDPC MDD 15 mL PRN (Reason: dyspepsia) Qty: 300 0RF sucralfate [Carafate] 100 mg/mL suspension 10 ml PO TID Qty: 500 0RF Rx Instructions: swish in mouth and swallow; use after food/drink ondansetron 4 mg tablet,disintegrating 4 mg PO Q8H PRN (Reason: nausea and vomiting) Qty: 10 0RF baclofen 5 mg tablet 5 mg PO BID PRN (Reason: muscle spasm) Qty: 10 0RF Eliquis 5 mg Tablet 5 mg PO QDAY sennosides-docusate sodium [Senokot-S] 8.6-50 mg tablet 2 tab-cap PO QDAY PRN (Reason: constipation) Qty: 20 0RF magnesium hydroxide [Milk Of Magnesia Concentrated] 2,400 mg/10 mL suspension 30 ml PO QDAY PRN (Reason: constipation) Qty: 60 0RF ascorbic acid (vitamin C) [Vitamin C] 500 mg tablet 500 mg PO QDAY alprazolam [Xanax] 0.5 mg tablet 0.5 mg PO TID PRN (Reason: anxiety) duloxetine [Cymbalta] 60 mg capsule,delayed release(DR/EC) 60 mg PO QDAY Qty: 30 0RF ferrous sulfate 325 mg (65 mg iron) Tablet,Delayed Release (Dr/Ec) 325 mg PO QOD Qty: 30 0RF polyethylene glycol 3350 [Miralax] 17 gram/dose powder 4 g PO QDAY Qty: 510 0RF pantoprazole [Protonix] [address] for susp in packet 40 mg PO BID MDD 2 Qty: 30 0RF Referrals: No Primary/Family,Physician [Primary Care Provider] - In 1 week Problem List Clinical Impression: Abdominal pain, epigastric Patient/Caregiver Discharge Instructions Discharge Activity: activity as tolerated Education Materials: ED Pain, Acute, Uncertain Cause Additional Instructions: Thank you for the opportunity for serving you today. You are stable for discharged . You are advised to: Follow-up with your PCP in 1 to 2 days Return to ED for worsening of symptoms Increase oral fluids Continue taking your peptic ulcer disease disease medications Print Language: [place]i Stand Alone Forms: [employer] Award Info., Patient Portal Info Letter FEROZ/ZULEIKA Supervising Physician FEROZ/ZULEIKA Supervising Physician: MD Max MDM Narrative MDM hospital course (for use when minimal MDM required): 06/10/25 14:44 79-year-old female patient was brought in for evaluation regarding epigastric pain. Incident happened after patient took her baclofen. Described as burning- like sensation severity moderate associated with dizziness and tingling sensation and drowsiness. Patient denies any vomiting no fever no other complaints noted. Patient's workup today all came back unremarkable. No leukocytosis, CMP unremarkable blood sugar 154 no elevation of total bili, LFTs normal urinalysis no UTI I personally reviewed and interpreted the x-ray of this patient. There is no acute abnormalities found, no infiltrates no pneumothorax no hemothorax normal chest x-ray. Review of other structures was without significant abnormal findings also. I additionally reviewed the radiologist report and agree with the interpretation.. EKG showed normal sinus rhythm, ventricular rate of 80 bpm, no ST segment elevation or depression noted. Patient told me that her symptoms is Significantly improved after patient received GI cocktail and Tylenol. Told her to continue taking her peptic ulcer disease medication. Medication Administration(s) Medication Administration History Discontinued Medications Acetaminophen (Acetaminophen 500 Mg Tablet) 500 mg PO X1 ONE Stop: 06/10/25 16:18 Last Admin: 06/10/25 16:21 Dose: 500 mg Documented By: NGOZI Al Hydrox/Mg Hydrox/Simethicone (Mg Hyd/Al Hyd/Jennifer (Maalox Reg) Susp 30 Ml Udc) 30 ml PO X1 ONE Stop: 06/10/25 17:05 Last Admin: 06/10/25 17:14 Dose: 30 ml Documented By: NGOZI Lidocaine HCl (Lidocaine Viscous 2% 15 Ml Udc) 10 ml PO X1 ONE Stop: 06/10/25 17:05 Last Admin: 06/10/25 17:14 Dose: 10 ml Documented By: NGOZI Diagnosis Differential Diagnosis ED Complaint MDM: Abdominal pain, gastritis, side effect from baclofen Diagnoses ruled out and/or further discussions: Epigastric pain, side effect from medications
== END 2025-06-10 17:44 | disposition home or self-care (01) ==
PROVIDERS: Nurse Practitioner Family; Emergency Provider Emergency Medicine
DX: R10.13 Epigastric pain (principal)
CPT/HCPCS: 36415; 71045; 80053; 81001; 83880; 84484; 85025; 93005; 99283; J3490; A9270

== ENCOUNTER 2025-06-11 05:59 | Emergency (ER) | payer MEDICARE, BC, SELFPAY ==
[2025-06-11 06:00] VITALS: BMI 31.2
[2025-06-11 06:10] VITALS: BP 191/78; PULSE 92; RESP 17; TEMP 36.6; O2SAT 97
--- NOTE | 2025-06-11 06:18 | EDNOTE_ITS ---
<Statement entered by Jenniffer Santana MD - 06/11/25 14:32> As co-signing physician, I was present and available for consult prn. I concur with the plan and care as documented by the midlevel provider. ED Abdominal Pain RME/HPI General Chief Complaint: Abdominal Pain Stated complaint: ABD PAIN Time seen by provider: 06/11/25 06:09 Arrival date/time: 06/11/25 05:59 79-year-old female with a history of hypothyroidism, type 2 diabetes, GERD, presents to the emergency room with a chief complaint of epigastric abdominal pain. Patient states her symptoms are related to taking a baclofen yesterday morning. Patient states she has been having uncontrolled heartburn. Source: patient Mode of arrival: ambulatory Limitations: no limitations Related Data Home Medications ?Medication ?Instructions ?Recorded ?Confirmed Bifidobacterium infantis 4 mg 4 mg PO DAILY 06/27/23 0 02/05/25 capsule (Align (B.infantis)) acetaminophen 500 mg tablet 500 mg PO PRN PRN Pain 02/05/25 cholecalciferol (vitamin D3) 25 25 mcg PO 1XD 06/27/23 02/05/25 mcg (1,000 unit) tablet (Vitamin D3) levothyroxine 50 mcg tablet 50 mcg PO DAILY 06/27/23 0 02/05/25 metformin 500 mg tablet 500 mg PO DAILY 06/27/23 alprazolam 0.5 mg tablet 0.5 mg PO BID PRN Anxiety 02/05/25 benazepril 20 mg tablet 20 mg PO QDAY 10/28/2302/05 loperamide 2 mg capsule 2 mg PO QDAY 10/28/23 pantoprazole 40 mg tablet,delayed 40 mg PO BID 4 02/05/25 release apixaban 5 mg tablet (Eliquis) 5 mg PO QDAY 06/11/24 0 02/05/25 alprazolam 0.5 mg tablet (Xanax) 0.5 mg PO TID PRN anx iety 02/05/25 02/05/25 ascorbic acid (vitamin C) 500 mg 500 mg PO QDAY 02/05/25 tablet (Vitamin C) Previous Rx's ?Medication ?Instructions ?Recorded ondansetron 4 mg disintegrating 4 mg PO Q8H PRN nausea and 02/22/24 tablet vomiting #30 tabs lidocaine HCl 2 % mucosal solution 5 ml PO TIDPC PRN d yspepsia #300 mL 07/02/24 (Lidocaine Viscous) sucralfate 100 mg/mL oral 10 ml PO TID #500 mL 4 suspension (Carafate) magnesium hydroxide 2,400 mg/10 mL 30 ml PO QDAY PRN c onstipation #60 01/22/25 oral suspension (Milk Of Magnesia mL Concentrated) sennosides 8.6 mg-docusate sodium 2 tab-cap (2 x 8.6-5 0 mg) PO QDAY 01/22/25 50 mg tablet (Senokot-S) PRN constipation #20 tabs duloxetine 60 mg capsule,delayed 60 mg PO QDAY #30 cap s 02/14/25 release (Cymbalta) ferrous sulfate 325 mg (65 mg 325 mg PO QOD #30 tabs 0 02/14/25 iron) tablet,delayed release ondansetron 4 mg disintegrating 4 mg PO Q8H PRN nausea and 02/26/25 tablet vomiting #10 tabs polyethylene glycol 3350 17 4 g PO QDAY #510 grams gram/dose oral powder (Miralax) baclofen 5 mg tablet 5 mg PO BID PRN muscle spasm #10 06/03/25 tabs pantoprazole 40 mg granules 40 mg PO BID ULCER #30 ea 06/06/25 delayed-release for susp in packet (Protonix) ondansetron 4 mg disintegrating 4 mg PO Q8H PRN nausea and 06/11/25 tablet vomiting #14 tabs Allergies Allergy/AdvReac Type Severity Reaction Status Date / Time amoxicillin (From Augmentin) Allergy Severe Hives Verified 06/11/25 06:03 aspirin Allergy Severe Abdominal Verified 06/11/25 06:03 Pain ciprofloxacin (From Cipro) Allergy Severe Gastrointestinal Verified 06/11/25 06:03 Upset clavulanic acid (From Allergy Severe Hives Verified 06/11/25 06:03 Augmentin) codeine Allergy Severe Nausea Verified 06/11/25 06:03 fluconazole Allergy Severe Rash Verified 06/11/25 06:03 gabapentin Allergy Severe Abdominal Verified 06/11/25 06:03 Pain ketorolac (From Toradol) Allergy Severe Abdominal Verified 06/11/25 06:03 Pain nalbuphine Allergy Severe Abdominal Verified 06/11/25 06:03 Pain Sulfa (Sulfonamide Allergy Severe Hives Verified 06/11/25 06:03 Antibiotics) tizanidine Allergy Severe Rash Verified 06/11/25 06:03 tramadol Allergy Severe Rash Verified 06/11/25 06:03 Review of Systems Review of Systems Systems Reviewed: All systems reviewed, normal except as documented Constitutional Constitutional: Reports system reviewed and no additional complaints, except as documented, Denies fatigue, Denies fever(s), Denies headache(s) and Denies weakness Eyes Eyes: Reports system reviewed and no additional complaints, except as documented, Denies blurry vision and Denies change in vision ENT Ears, Nose, Mouth, and Throat: Reports system reviewed and no additional complaints, except as documented, Denies otalgia, Denies headache(s), Denies nasal congestion, Denies throat swelling and Denies vertigo Cardiovascular Cardiovascular: Reports system reviewed and no additional complaints, except as documented, Denies chest pain, Denies dyspnea and Denies dyspnea on exertion Respiratory Respiratory: Reports system reviewed and no additional complaints, except as documented, Denies chest congestion, Denies cough, Denies dyspnea, Denies dyspnea on exertion and Denies wheezing Gastrointestinal Gastrointestinal: Reports system reviewed and no additional complaints, except as documented, Reports abdominal pain, Reports cramping, Reports diarrhea, Reports heartburn, Reports nausea and Denies vomiting Genitourinary Genitourinary: Reports system reviewed and no additional complaints, except as documented Musculoskeletal Musculoskeletal: Reports system reviewed and no additional complaints, except as documented and Denies back pain Integumentary/Breasts Skin/Breast: Reports system reviewed and no additional complaints, except as documented and Denies wounds Neurologic Neurologic: Reports system reviewed and no additional complaints, except as documented, Denies confusion, Denies headache(s), Denies lack of coordination, Denies vertigo and Denies weakness Psychiatric Psychiatric: Reports system reviewed and no additional complaints, except as documented, Denies anxiety, Denies confusion, Denies depression, Denies paranoia, Denies suicidal ideation and Denies tactile hallucinations Endocrine Endocrine: Reports system reviewed and no additional complaints, except as documented and Denies fatigue Hematologic/Lymphatic Hematologic/Lymphatic: Reports system reviewed and no additional complaints, except as documented and Denies lymphadenopathy Allergic/Immunologic Allergic/Immunologic: Reports system reviewed and no additional complaints, except as documented, Denies throat swelling, Denies urticaria and Denies wheezing Past Medical History Past Medical History NEUROLOGIC: Negative Neurological Disorders or Seizures CARDIAC: Positive Cardiac Disorders, Cardiac Arrhythmia, Atrial Fibrillation, Hypercholesterolemia and Hypertension; Negative Congestive Heart Failure RESPIRATORY: Positive Pneumonia and Sleep Apnea; Negative Chronic Obstructive Pulmonary Disease (COPD) or Asthma GASTROINTESTINAL: Positive Gastrointestinal Disorders, Gastrointestinal Bleed, Colitis, Ulcerative Colitis, Diverticulitis, Diverticulosis, Ulcer, Irritable Bowel, Obstructive Bowel, Hemorrhoids and Obesity GENITOURINARY: Positive Kidney Stones; Negative Genitourinary Disorders or Renal Disease REPRODUCTIVE: Positive Previous Pregnancies MUSCULOSKELETAL: Positive Musculoskeletal Disorders and Arthritis ENT: Positive Cataracts and Ear Infection ENDOCRINE: Positive Diabetes Mellitus Type 2 and Hypothyroidism; Negative Diabetes Mellitus Type 1 HEMATOLOGIC: Negative Blood Disorders or Sickle Cell Disease PSYCHO/SOCIAL: Positive Anxiety OTHER HISTORY: Positive Falls, Blood Transfusions, Chicken Pox, Mumps and Clostridium Difficile; Negative Blood Transfusion Reaction, Anesthesia Reactions or Cancer Family History FAMILY HISTORY: Positive Family Cardiac Disorders; Negative Family Respiratory Disorders Surgical History SURGICAL: Positive Cardiac Surgery, Endocrine Surgery, Thyroidectomy, Abdominal Surgery, Joint Replacement, Hysterectomy and Section Social History SMOKING STATUS: Never smoker SUBSTANCE USE: does not use ED Exam General Limitations: Present no limitations General appearance: Present alert and in no apparent distress Head Head exam: Present atraumatic Eye Eye exam: Present normal appearance, PERRL and EOMI ENT ENT exam: Present normal exam, normal oropharynx and mucous membranes moist Neck Neck exam: Present normal inspection, full ROM and trachea midline Chest Chest inspection: Present normal inspection and symmetric chest wall rise Respiratory Respiratory exam: Present normal lung sounds bilaterally Cardiovascular Cardiovascular exam: Present regular rate, normal rhythm and normal heart sounds Abdominal Exam Abdominal exam: Present soft, tenderness and normal bowel sounds; Absent Spencer's sign or tenderness at McBurney's Point Abdominal tenderness: Present epigastrium and mild Extremities Exam Extremities exam: Present normal inspection and full ROM Back Exam Back exam: Present normal inspection and full ROM Neurological Exam Neurological exam: Present alert, oriented X3 and CN II-XII intact Psychiatric Psychiatric exam: Present normal affect and normal mood Skin Skin exam: Present warm, dry, intact and normal color Course Quality Measures none Orders Category Date Time Status Ondansetron Odt [Zofran Odt] Med 06/11/25 06:15 Discontinued 4 mg PO X1 ONE Pantoprazole [Protonix] Med 06/11/25 06:17 Discontinued 40 mg PO X1 ONE mg Hyd/Al Hyd/Jennifer Susp [Maalox Susp] Med 06/11/25 06:15 Discontinued 30 ml PO X1 ONE Vital Signs Vital signs: Vital Signs Temperature 97.8 F 06/11/25 06:10 Pulse Rate 92 06/11/25 06:10 Respiratory Rate 17 06/11/25 06:10 Blood Pressure 191/78 H 06/11/25 06:10 Pulse Oximetry (%) 97 06/11/25 06:10 Oxygen Delivery Method Room Air 06/11/25 06:10 Abdominal Pain MDM MDM Narrative MDM Narrative:: 79-year-old female with a history of hypothyroidism, type 2 diabetes, GERD, presents to the emergency room with a chief complaint of epigastric abdominal pain. Patient states her symptoms are related to taking a baclofen yesterday morning. Patient states she has been having uncontrolled heartburn. Patient is hemodynamically stable and in no apparent distress. Patient is afebrile not tachycardic not tachypneic Physical examination shows tenderness to the epigastric area of the patient's abdomen. There is no right lower quadrant right upper quadrant or left lower quadrant abdominal tenderness with palpation. Patient states she has had multiple episodes of diarrhea as well with her symptoms. Patient was seen here yesterday and had a full abdominal workup which was negative. Patient states that her symptoms are actually improving since yesterday. Patient states her only complaint is heartburn. Patient was discharged and educated to follow-up with primary care provider in the next 24 to 48 hours and return to the emergency room for any evidence of worsening signs or symptoms Patient data External records reviewed:: [facility] previous records Clinical information provided by:: patient Social determinants that could affect healthcare access:: none Patient has the following chronic illnesses:: Type 2 diabetes, GERD, hypothyroidism How is presenting disease/condition affected by chronic disease/condition?: exacerbated by Evaluation data The following diagnostics were reviewed and interpreted by me:: lab results and radiology exam(s) Lab and/or radiology exams considered but not ordered:: Labs and radiology exams considered and ordered Interpretation Summary: N/A Medications / Prescriptions Medications or Prescriptions considered but not ordered:: Medication given Medication administrations:: Medication Administration History Discontinued Medications Al Hydrox/Mg Hydrox/Simethicone (Mg Hyd/Al Hyd/Jennifer (Maalox Reg) Susp 30 Ml Udc) 30 ml PO X1 ONE Stop: 06/11/25 06:16 Last Admin: 06/11/25 06:34 Dose: 30 ml Documented By: INDIGO Ondansetron HCl (Ondansetron Odt 4 Mg Tabrap) 4 mg PO X1 ONE; Protocol Stop: 06/11/25 06:16 Last Admin: 06/11/25 06:34 Dose: 4 mg Documented By: INDIGO Pantoprazole Sodium (Pantoprazole 40 Mg Tablet) 40 mg PO X1 ONE Stop: 06/11/25 06:18 Last Admin: 06/11/25 06:34 Dose: 40 mg Documented By: INDIGO Medication given Consultations Consultation(s) initiated? (list below): No Diagnosis Differential diagnosis abdominal pain: abdominal pain, diverticulitis and gastroenteritis Most likely diagnosis given after review of the tests above:: Gastroenteritis Admission Indicated Admission indicated?: not indicated Admission Request Was there a request for admission?: No Disposition Plan Disposition Plan: Discharge Discharge Attestation Discharge Attestation: The patient and all family members were given an opportunity to ask questions and understood the discharge instructions. Discharge instructions specifically effects, indications for sooner follow up or return to the emergency department, and the expected course of current diagnosis. Patient condition: Stable Discharge Plan Plan Patient Disposition: HOME (Self Care) Discharge Disposition comment: Stable Prescriptions/Referrals Prescriptions/Med Rec: New ondansetron 4 mg tablet,disintegrating 4 mg PO Q8H PRN (Reason: nausea and vomiting) Qty: 14 0RF No Action metformin 500 mg Tablet 500 mg PO DAILY acetaminophen 500 mg Tablet 500 mg PO PRN MDD 4 PRN (Reason: Pain) levothyroxine 50 mcg Tablet 50 mcg PO DAILY cholecalciferol (vitamin D3) [Vitamin D3] 25 mcg (1,000 unit) Tablet 25 mcg PO 1XD Align (B.infantis) 4 mg Capsule 4 mg PO DAILY loperamide 2 mg capsule 2 mg PO QDAY alprazolam 0.5 mg tablet 0.5 mg PO BID PRN (Reason: Anxiety) Patient Comments: TAKE 1 TABLET BY MOUTH THREE TIMES DAILY NEEDED FOR ANXIETY pantoprazole 40 mg tablet,delayed release (DR/EC) 40 mg PO BID Patient Comments: TAKE 1 TABLET BY MOUTH DAILY benazepril 20 mg tablet 20 mg PO QDAY ondansetron 4 mg tablet,disintegrating 4 mg PO Q8H PRN (Reason: nausea and vomiting) Qty: 30 0RF lidocaine HCl [Lidocaine Viscous] 2 % solution 5 ml PO TIDPC MDD 15 mL PRN (Reason: dyspepsia) Qty: 300 0RF sucralfate [Carafate] 100 mg/mL suspension 10 ml PO TID Qty: 500 0RF Rx Instructions: swish in mouth and swallow; use after food/drink ondansetron 4 mg tablet,disintegrating 4 mg PO Q8H PRN (Reason: nausea and vomiting) Qty: 10 0RF baclofen 5 mg tablet 5 mg PO BID PRN (Reason: muscle spasm) Qty: 10 0RF Eliquis 5 mg Tablet 5 mg PO QDAY sennosides-docusate sodium [Senokot-S] 8.6-50 mg tablet 2 tab-cap PO QDAY PRN (Reason: constipation) Qty: 20 0RF magnesium hydroxide [Milk Of Magnesia Concentrated] 2,400 mg/10 mL suspension 30 ml PO QDAY PRN (Reason: constipation) Qty: 60 0RF ascorbic acid (vitamin C) [Vitamin C] 500 mg tablet 500 mg PO QDAY alprazolam [Xanax] 0.5 mg tablet 0.5 mg PO TID PRN (Reason: anxiety) duloxetine [Cymbalta] 60 mg capsule,delayed release(DR/EC) 60 mg PO QDAY Qty: 30 0RF ferrous sulfate 325 mg (65 mg iron) Tablet,Delayed Release (Dr/Ec) 325 mg PO QOD Qty: 30 0RF polyethylene glycol 3350 [Miralax] 17 gram/dose powder 4 g PO QDAY Qty: 510 0RF pantoprazole [Protonix] [address] for susp in packet 40 mg PO BID MDD 2 Qty: 30 0RF Referrals: Tyrone Langford MD [Primary Care Provider, Family Practice] - In 1 week Problem List Clinical Impression: Gastroenteritis Patient/Caregiver Discharge Instructions Education Materials: ED Gastroenteritis, Noninfectious Additional Instructions: Please follow-up with your primary care provider in the next 24 to 48 hours Medication was sent to your pharmacy please pick it up and take it as indicated For any evidence of worsening signs or symptoms return to the emergency room immediately Print Language: Maldivian Stand Alone Forms: [employer] Award Info., Work/School Release, Patient Portal Info Letter 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 Alfaro
[2025-06-11] MEDS: ONDANSETRON ODT 4 MG TABRAP PO (06:34)
[2025-06-11] MEDS: MG HYD/AL HYD/SIME (Maalox Reg) SUSP 30 ML UDC PO (06:34)
[2025-06-11] MEDS: PANTOPRAZOLE 40 MG TABLET PO (06:34)
== END 2025-06-11 07:37 | disposition home or self-care (01) ==
PROVIDERS: Emergency Provider Nurse Practitioner Family; PCP Family Medicine
DX: K52.9 Noninfective gastroenteritis and colitis, unspecified (principal); E03.9 Hypothyroidism, unspecified; E11.9 Type 2 diabetes mellitus without complications; Z79.01 Long term (current) use of anticoagulants; Z79.84 Long term (current) use of oral hypoglycemic drugs; Z79.890 Hormone replacement therapy
CPT/HCPCS: 99281; Q0162; A9270

== ENCOUNTER 2025-06-16 14:33 | Emergency (ER) | payer MEDICARE, BC, SELFPAY ==
[2025-06-16 14:34] VITALS: BMI 32.2
--- NOTE | 2025-06-16 15:25 | PC.NURSE ---
PT LEFT NOTE ON TRIAGE DESK THAT SHE WAS LEAVING.
== END 2025-06-16 15:26 | disposition left against medical advice (07) ==
LOC: SERX 15:44
PROVIDERS: Emergency Provider Family Medicine
DX: Z53.21 Procedure and treatment not carried out due to patient leaving prior to being seen by health care provider (principal)
CPT/HCPCS: 99281

== ENCOUNTER 2025-06-16 19:00 | Emergency (ER) | payer MEDICARE, BC, SELFPAY ==
[2025-06-16 19:00] VITALS: BMI 31.2
[2025-06-16 19:18] VITALS: BP 163/74; PULSE 78; RESP 18; TEMP 36.7; O2SAT 96
--- NOTE | 2025-06-16 19:41 | EDRME_ITS ---
Rapid Medical Screening Exam [facility] Arrival date/time: 06/16/25 19:00 Chief Complaint: Nausea/Vomiting/Diarrhea Time Seen by Provider: 06/16/25 19:05 Vital signs: Vital Signs Temperature 98.1 F 06/16/25 19:18 Pulse Rate 78 06/16/25 19:18 Respiratory Rate 18 06/16/25 19:18 Blood Pressure 163/74 H 06/16/25 19:18 Pulse Oximetry (%) 96 06/16/25 19:18 Oxygen Delivery Method Room Air 06/16/25 19:18 [facility] Narrative: c/o persistent epigastric pain, nausea Exam: Epigastric tenderness Clinical Impression: Epigastric pain
--- NOTE | 2025-06-16 19:42 | EKG_ITS ---
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pdf
[2025-06-16] MEDS: LIDOCAINE VISCOUS 2% 15 ML UDC PO (20:16)
[2025-06-16] MEDS: MG HYD/AL HYD/SIME (Maalox Reg) SUSP 30 ML UDC PO (20:16)
[2025-06-16] MEDS: ACETAMINOPHEN 500 MG TABLET 1000 MG PO (20:17)
[2025-06-16] MEDS: FAMOTIDINE 20 MG TABLET 40 MG PO (20:17)
[2025-06-16 20:35] LABS: Basophils # (Auto) 0.0 Thou/mm3 (0.0-0.2); Basophils % (Auto) 1 % (0-2.5); Eosinophils # (Auto) 0.1 Thou/mm3 (0.0-0.5); Eosinophils % (Auto) 1 % (0-10); Hematocrit 33.5 % (36.0-46.0); Hemoglobin 10.3 g/dL (12.0-16.0); Immature Granulocytes Auto 0.02 Thou/mm3 (0.00-0.00); Lymphocytes # (Auto) 2.6 Thou/mm3 (1.0-4.8); Lymphocytes % (Auto) 33 % (10-50); Mean Corpuscular HGB Conc 30.7 g/dl (31.0-37.0); Mean Corpuscular Hemoglobin 26.2 pg (25.0-35.0); Mean Corpuscular Volume 85 fL (80-100); Monocytes # (Auto) 0.9 Thou/mm3 (0.0-0.8); Monocytes % (Auto) 12 % (0-12); Neutrophils # (Auto) 4.2 Thou/mm3 (1.8-7.7); Neutrophils % (Auto) 54 % (37-80); Nucleated Red Blood Cell # 0.00 Thou/mm3 (0.00-0.00); Nucleated Red Blood Cell % 0 /100 WBC (0); Platelet Count 367 Thou/mm3 (140-440); RDW Standard Deviation 47.4 fL (36.4-46.3); Red Blood Count 3.93 Miln/mm3 (4.00-5.20); White Blood Count 7.8 Thou/mm3 (3.6-11.0)
[2025-06-16 20:53] LABS: Alanine Aminotransferase 9 U/L (10-49); Albumin, Serum 4.8 gm/dL (3.4-4.8); Albumin/Globulin Ratio 1.5 (1.2-2.2); Alkaline Phosphatase 78 U/L (46-116); Anion Gap 9 (7-16); Aspartate Amino Transferase 16 U/L (0-34); BUN/Creatinine Ratio 9 Ratio (12-20); Bilirubin,Total 0.2 mg/dL (0.3-1.2); Blood Urea Nitrogen 9 mg/dL (9-23); Calcium 9.9 mg/dL (8.3-10.6); Calcium (Corrected) 9.9 mg/dL (8.5-10.1); Carbon Dioxide 28.1 mMol/L (20.0-31.0); Chloride 103 mMol/L (98-107); Creatinine (Component) 1.0 mg/dL (0.6-1.3); Estimated Creatinine Clearance 41.2 mL/min (>60); Globulin 3.1 gm/dL (2.3-3.5); Glucose 105 mg/dL (74-106); Lipase 23 U/L (12-53); Osmolality,Calculated 278 (275-295); Potassium 4.3 mMol/L (3.4-5.1); Sodium 140 mMol/L (136-145); Total Protein 7.9 gm/dL (5.7-8.2); Troponin I < 0.020 ng/mL (0.0-0.045); eGFR 58 See Note
--- NOTE | 2025-06-16 21:40 | XR_ITS ---
Examination: CT abdomen and pelvis without contrast. Coronal 3-D reconstructions. Sagittal 2-D reconstructions. Date and time of exam: June 16, 2025, 10 0 1:00 p.m. INDICATIONS: Abdominal pain beginning 2 days ago. COMPARISON: May 01, 2025 CTDI: vol (mGy): 9.93 DLP: (mGycm): 529 Technique: Axial images of the abdomen have been obtained, 3 mm slice thickness Intravenous contrast material has not been administered. Low dose protocols were performed. One or more of the following dose reduction techniques were used; automated exposure control, adjustment of the mA and/or KV according to patient size, use of iterative reconstruction technique. Findings: No focal liver or splenic lesions No gallstones No pancreatic or adrenal mass No renal or ureteral calculi No hydronephrosis No pericecal inflammatory change No bowel obstruction No diverticulitis Urinary bladder intact Absent uterus No pelvic mass IMPRESSION: No renal or ureteral calculi No hydronephrosis No CT findings of appendicitis bowel obstruction diverticulitis
--- NOTE | 2025-06-16 21:40 | PD.EDABDPN ---
ED Abdominal Pain RME/HPI General Chief Complaint: Nausea/Vomiting/Diarrhea Stated complaint: VOMITING, HERE EARLIER AND LEFT AMA Time seen by provider: 06/16/25 19:05 Arrival date/time: 06/16/25 19:00 RME / HPI RME / HPI narrative: c/o persistent epigastric pain, nausea DR. SHRESTHA MAIN ED EVALUATION: Patient with Hx of IBS presents with ongoing diarrhea x 24 hours for which she took a Benadryl tablet at 9 AM and developed nausea, vomiting, generalized abdominal pain, and suspected possible medication reaction. No fever, chills, urinary frequency, urgency, or dysuria. PMH: Cardiac Arrhythmia, Atrial Fibrillation, Hypercholesterolemia, Hypertension, Sleep Apnea, Gastrointestinal Bleed, Colitis, Ulcerative Colitis, Diverticulitis, Diverticulosis, Ulcer, Irritable Bowel, Obstructive Bowel, Hemorrhoids, Obesity, Kidney Stones, Arthritis, Cataracts, Diabetes Mellitus Type 2 and Hypothyroidism PSH: , Appendectomy, Hysterectomy Allergies: Amoxicillin, Aspirin, Cirpofloxacin, Clavulanic acid, Codeine, Fluconazole, Gabapentin, Ketoralac, Nalbiphine, Sulfa, Tizanidine, Tramadol, Dicyclomine Social: Non-smoker, Non-drinker, No illicit drug abuse Exam: Epigastric tenderness Impression: Epigastric pain Related Data Home Medications ?Medication ?Instructions ?Recorded ?Confirmed Bifidobacterium infantis 4 mg 4 mg PO DAILY 06/27/23 02/05/25 capsule (Align (B.infantis)) acetaminophen 500 mg tablet 500 mg PO PRN PRN Pain 06/27/23 02/05/25 cholecalciferol (vitamin D3) 25 25 mcg PO 1XD 06/27/23 02/05/25 mcg (1,000 unit) tablet (Vitamin D3) levothyroxine 50 mcg tablet 50 mcg PO DAILY 06/27/23 02/05/25 metformin 500 mg tablet 500 mg PO DAILY 06/27/23 02/05/25 alprazolam 0.5 mg tablet 0.5 mg PO BID PRN Anxiety 10/28/23 02/05/25 benazepril 20 mg tablet 20 mg PO QDAY 10/28/23 02/05/25 loperamide 2 mg capsule 2 mg PO QDAY 10/28/23 02/06/25 pantoprazole 40 mg tablet,delayed 40 mg PO BID 10/28/23 02/05/25 release apixaban 5 mg tablet (Eliquis) 5 mg PO QDAY 06/11/24 02/05/25 alprazolam 0.5 mg tablet (Xanax) 0.5 mg PO TID PRN anxiety 02/05/25 02/05/25 ascorbic acid (vitamin C) 500 mg 500 mg PO QDAY 02/05/25 02/05/25 tablet (Vitamin C) Previous Rx's ?Medication ?Instructions ?Recorded ondansetron 4 mg disintegrating 4 mg PO Q8H PRN nausea and 02/22/24 tablet vomiting #30 tabs lidocaine HCl 2 % mucosal solution 5 ml PO TIDPC PRN dyspepsia #300 mL 07/02/24 (Lidocaine Viscous) sucralfate 100 mg/mL oral 10 ml PO TID #500 mL 07/02/24 suspension (Carafate) magnesium hydroxide 2,400 mg/10 mL 30 ml PO QDAY PRN constipation #60 01/22/25 oral suspension (Milk Of Magnesia mL Concentrated) sennosides 8.6 mg-docusate sodium 2 tab-cap (2 x 8.6-50 mg) PO QDAY 01/22/25 50 mg tablet (Senokot-S) PRN constipation #20 tabs duloxetine 60 mg capsule,delayed 60 mg PO QDAY #30 caps 02/14/25 release (Cymbalta) ferrous sulfate 325 mg (65 mg 325 mg PO QOD #30 tabs 02/14/25 iron) tablet,delayed release ondansetron 4 mg disintegrating 4 mg PO Q8H PRN nausea and 02/26/25 tablet vomiting #10 tabs polyethylene glycol 3350 17 4 g PO QDAY #510 grams 02/26/25 gram/dose oral powder (Miralax) baclofen 5 mg tablet 5 mg PO BID PRN muscle spasm #10 06/03/25 tabs pantoprazole 40 mg granules 40 mg PO BID ULCER #30 ea 06/06/25 delayed-release for susp in packet (Protonix) ondansetron 4 mg disintegrating 4 mg PO Q8H PRN nausea and 06/11/25 tablet vomiting #14 tabs hydrocodone 5 mg-acetaminophen 325 1 tab PO Q8H PRN pain #20 tabs 06/17/25 mg tablet promethazine 25 mg tablet 12.5 mg (1/2 x 25 mg) PO TID PRN 06/17/25 nausea #14 tabs Allergies Allergy/AdvReac Type Severity Reaction Status Date / Time amoxicillin (From Augmentin) Allergy Severe Hives Verified 06/16/25 19:02 aspirin Allergy Severe Abdominal Verified 06/16/25 19:02 Pain ciprofloxacin (From Cipro) Allergy Severe Gastrointestinal Verified 06/16/25 19:02 Upset clavulanic acid (From Allergy Severe Hives Verified 06/16/25 19:02 Augmentin) codeine Allergy Severe Nausea Verified 06/16/25 19:02 fluconazole Allergy Severe Rash Verified 06/16/25 19:02 gabapentin Allergy Severe Abdominal Verified 06/16/25 19:02 Pain ketorolac (From Toradol) Allergy Severe Abdominal Verified 06/16/25 19:02 Pain nalbuphine Allergy Severe Abdominal Verified 06/16/25 19:02 Pain Sulfa (Sulfonamide Allergy Severe Hives Verified 06/16/25 19:02 Antibiotics) tizanidine Allergy Severe Rash Verified 06/16/25 19:02 tramadol Allergy Severe Rash Verified 06/16/25 19:02 dicyclomine (From Bentyl) AdvReac Severe Abdominal Verified 06/16/25 19:02 Pain Review of Systems Review of Systems Systems Reviewed: All systems reviewed, normal except as documented Past Medical History Past Medical History CARDIAC: Positive Cardiac Arrhythmia, Atrial Fibrillation, Hypercholesterolemia and Hypertension RESPIRATORY: Positive Pneumonia and Sleep Apnea GASTROINTESTINAL: Positive Gastrointestinal Disorders, Gastrointestinal Bleed, Colitis, Ulcerative Colitis, Diverticulitis, Diverticulosis, Ulcer, Irritable Bowel, Obstructive Bowel, Hemorrhoids and Obesity GENITOURINARY: Positive Kidney Stones REPRODUCTIVE: Positive Previous Pregnancies MUSCULOSKELETAL: Positive Arthritis ENT: Positive Cataracts and Ear Infection ENDOCRINE: Positive Diabetes Mellitus Type 2 and Hypothyroidism PSYCHO/SOCIAL: Positive Anxiety OTHER HISTORY: Positive Falls, Blood Transfusions, Chicken Pox, Mumps and Clostridium Difficile Family History FAMILY HISTORY: Positive Family Cardiac Disorders Surgical History SURGICAL: Positive Cardiac Surgery, Endocrine Surgery, Thyroidectomy, Abdominal Surgery, Joint Replacement, Hysterectomy and Section ED Exam Narrative Physical exam: GEN. APPEARANCE: The patient is alert awake oriented X-3 under no distress, lying down comfortably, does not look ill/toxic. Patient has good eye contact. Patient is cooperative. VITALS: All vitals were reviewed and the pulse ox is 96%, which is normal according to my interpretation HEENT: Normocephalic, atraumatic and nontender. Pupils are equal and reactive. Oral mucosa is moist. NECK: Supple, nontender, no meningismus, no JVD. There is no thyromegaly and no lymphadenopathy. CHEST: Nontender on palpation no deformity and no crepitus. CARDIOVASCULAR: Heart regular rhythm, no murmur or gallop rub or extra beats. LUNGS: Clear to auscultation bilaterally with symmetrical chest rise. No laboring tachypnea or wheezing. No intercostal subcostal retraction. No rales and no rhonchi. ABDOMEN: Slightly distended, diffusely tender predominantly at right upper/epigastric region. There are no abnormal masses palpated. No pulsatile masses or bruits. Active and normal bowel sounds. EXTREMITIES: Normal inspection and palpation. No edema. No cyanosis. Patient is able to move all 4 extremities well SKIN: Warm and dry, no rashes noted. MUSCULOSKELETAL: No lumbar or midline bony tenderness. There is no CVA tenderness. No paraspinal muscle spasm or tenderness. NEURO: Cranial nerves II through XII grossly intact. There are no focal neurologic deficits noted. GCS is 15 PSYCHIATRIC: Patient is in normal mood and affect, cooperative. LYMPHATICS: No major lymphadenopathy noted. Course Quality Measures none Orders Category Date Time Status EKG (ED ONLY) *Do not use* NOW Care 06/16/25 19:[address] abdomen pelvis wo con Stat Exams 06/16/25 21:40 Completed EKG (ED Only) Stat Exams 06/16/25 19:42 Draft CBC Stat Lab 06/16/25 20:22 Completed CMP [Comprehensive Metabolic Panel] Stat Lab 06/16/25 20:22 Completed Lipase Stat Lab 06/16/25 20:22 Completed Troponin I Stat Lab 06/16/25 20:22 Completed Acetaminophen Tab [Tylenol ES Tab] Med 06/16/25 19:42 Discontinued 1,000 mg PO X1 ONE Diazepam Inj [Valium Inj] Med 06/17/25 02:21 Discontinued 2.5 mg IM X1 ONE Famotidine [Pepcid] Med 06/16/25 19:42 Discontinued 40 mg PO X1 ONE Lidocaine 2% Viscous [Xylocaine 2% Viscous] Med 06/16/25 19:42 Discontinued 15 ml PO X1 ONE mg Hyd/Al Hyd/Ejnnifer Susp [Maalox Susp] Med 06/16/25 19:42 Discontinued 30 ml PO X1 ONE Vital Signs Vital signs: Vital Signs Temperature 98.1 F 06/16/25 19:18 Pulse Rate 78 06/16/25 19:18 Respiratory Rate 18 06/16/25 19:18 Blood Pressure 163/74 H 06/16/25 19:18 Pulse Oximetry (%) 96 06/16/25 19:18 Oxygen Delivery Method Room Air 06/16/25 19:18 Abdominal Pain MDM MDM Narrative MDM Narrative:: Scribe Attestation: I, Antionette Manzano, am scribing for and in the presence of Dr. Jacobson. Provider Notation: Although this document has been carefully reviewed, there may still be some phonetic and other typographical errors. These errors are purely grammatical due to imperfections in the software program and should not be construed in any way to compromise the substance of the patient's medical care during this visit. Patient with Hx of IBS presents with ongoing diarrhea x 24 hours for which she took a Benadryl tablet at 9 AM and developed nausea, vomiting, generalized abdominal pain, and suspected possible medication reaction. No fever, chills, urinary frequency, urgency, or dysuria. Please see PE findings. Laboratory markers, including CBC and serum chemistries, demonstrate stable anemia with hemoglobin of 10.3, no thrombocytosis. Serum chemistries within normal limts. CT scan without evidence of obstructive findings or inflammatory findings. Patient initially treated with GI cocktail with marginal results and subsequently administered IM benzodiazipines in addition to PO Tylenol. No signs of sepsis and abdominal examination essentially unchanged. Patient will be discharged home on a clear liquid, Promethazine and Tramadol. Final diagnosis is IBS flare. Patient data External records reviewed:: [facility] previous records (Reviewed prior ED records from 06/11/25. Patient was seen for Gastroenteritis.) Clinical information provided by:: patient Social determinants that could affect healthcare access:: none Patient has the following chronic illnesses:: Cardiac Arrhythmia, Atrial Fibrillation, Hypercholesterolemia, Hypertension, Sleep Apnea, Gastrointestinal Bleed, Colitis, Ulcerative Colitis, Diverticulitis, Diverticulosis, Ulcer, Irritable Bowel, Obstructive Bowel, Hemorrhoids, Obesity, Kidney Stones, Arthritis, Cataracts, Diabetes Mellitus Type 2 and Hypothyroidism How is presenting disease/condition affected by chronic disease/condition?: exacerbated by Evaluation data The following diagnostics were reviewed and interpreted by me:: lab results, radiology exam(s) and EKG tracing(s) (EKG demonstrates sinus rhythm with PAC with rate of 82 bpm, no acute ST segment changes, no ventricular ectopy, axis is leftward per my interpretation.) Lab and/or radiology exams considered but not ordered:: None Interpretation Summary: RADIOLOGY Abdomen/Pelvis CT: Findings: No focal liver or splenic lesions No gallstones No pancreatic or adrenal mass No renal or ureteral calculi No hydronephrosis No pericecal inflammatory change No bowel obstruction No diverticulitis Urinary bladder intact Absent uterus No pelvic mass IMPRESSION: No renal or ureteral calculi No hydronephrosis No CT findings of appendicitis bowel obstruction diverticulitis Medications / Prescriptions Medications or Prescriptions considered but not ordered:: None Medication administrations:: Medication Administration History Discontinued Medications Acetaminophen (Acetaminophen 500 Mg Tablet) 1,000 mg PO X1 ONE Stop: 06/16/25 19:43 Last Admin: 06/16/25 20:17 Dose: 1,000 mg Documented By: BD Al Hydrox/Mg Hydrox/Simethicone (Mg Hyd/Al Hyd/Jennifer (Maalox Reg) Susp 30 Ml Udc) 30 ml PO X1 ONE Stop: 06/16/25 19:43 Last Admin: 06/16/25 20:16 Dose: 30 ml Documented By: BD Diazepam (Diazepam Inj 5 Mg/Ml Vial 2 Ml) 2.5 mg IM X1 ONE Stop: 06/17/25 02:22 Last Admin: 06/17/25 02:48 Dose: 2.5 mg Documented By: AC Famotidine (Famotidine 20 Mg Tablet) 40 mg PO X1 ONE Stop: 06/16/25 19:43 Last Admin: 06/16/25 20:17 Dose: 40 mg Documented By: BD Lidocaine HCl (Lidocaine Viscous 2% 15 Ml Udc) 15 ml PO X1 ONE Stop: 06/16/25 19:43 Last Admin: 06/16/25 20:16 Dose: 15 ml Documented By: BD See above if any Consultations Consultation(s) initiated? (list below): No Diagnosis Differential diagnosis abdominal pain: abdominal pain, calculus of kidney, constipation, diverticulitis, gastroenteritis, pancreatitis and small bowel obstruction Most likely diagnosis given after review of the tests above:: IBS flare Admission Indicated Admission indicated?: not indicated Explain why admission is indicated or not indicated:: Patient does not meet admission criteria Admission Request Was there a request for admission?: No Disposition Plan Disposition Plan: Discharge Discharge Attestation Discharge Attestation: The patient and all family members were given an opportunity to ask questions and understood the discharge instructions. Discharge instructions specifically effects, indications for sooner follow up or return to the emergency department, and the expected course of current diagnosis. Patient condition: Stable Discharge Plan Plan Patient Disposition: HOME (Self Care) Discharge Disposition comment: Stable Prescriptions/Referrals Prescriptions/Med Rec: New promethazine 25 mg tablet 12.5 mg PO TID PRN (Reason: nausea) Qty: 14 0RF hydrocodone-acetaminophen 5-325 mg tablet 1 tab PO Q8H MDD 3 tab PRN (Reason: pain) Qty: 20 0RF No Action metformin 500 mg Tablet 500 mg PO DAILY acetaminophen 500 mg Tablet 500 mg PO PRN MDD 4 PRN (Reason: Pain) levothyroxine 50 mcg Tablet 50 mcg PO DAILY cholecalciferol (vitamin D3) [Vitamin D3] 25 mcg (1,000 unit) Tablet 25 mcg PO 1XD Align (B.infantis) 4 mg Capsule 4 mg PO DAILY loperamide 2 mg capsule 2 mg PO QDAY alprazolam 0.5 mg tablet 0.5 mg PO BID PRN (Reason: Anxiety) Patient Comments: TAKE 1 TABLET BY MOUTH THREE TIMES DAILY NEEDED FOR ANXIETY pantoprazole 40 mg tablet,delayed release (DR/EC) 40 mg PO BID Patient Comments: TAKE 1 TABLET BY MOUTH DAILY benazepril 20 mg tablet 20 mg PO QDAY ondansetron 4 mg tablet,disintegrating 4 mg PO Q8H PRN (Reason: nausea and vomiting) Qty: 30 0RF lidocaine HCl [Lidocaine Viscous] 2 % solution 5 ml PO TIDPC MDD 15 mL PRN (Reason: dyspepsia) Qty: 300 0RF sucralfate [Carafate] 100 mg/mL suspension 10 ml PO TID Qty: 500 0RF Rx Instructions: swish in mouth and swallow; use after food/drink ondansetron 4 mg tablet,disintegrating 4 mg PO Q8H PRN (Reason: nausea and vomiting) Qty: 10 0RF baclofen 5 mg tablet 5 mg PO BID PRN (Reason: muscle spasm) Qty: 10 0RF Eliquis 5 mg Tablet 5 mg PO QDAY sennosides-docusate sodium [Senokot-S] 8.6-50 mg tablet 2 tab-cap PO QDAY PRN (Reason: constipation) Qty: 20 0RF magnesium hydroxide [Milk Of Magnesia Concentrated] 2,400 mg/10 mL suspension 30 ml PO QDAY PRN (Reason: constipation) Qty: 60 0RF ascorbic acid (vitamin C) [Vitamin C] 500 mg tablet 500 mg PO QDAY alprazolam [Xanax] 0.5 mg tablet 0.5 mg PO TID PRN (Reason: anxiety) duloxetine [Cymbalta] 60 mg capsule,delayed release(DR/EC) 60 mg PO QDAY Qty: 30 0RF ferrous sulfate 325 mg (65 mg iron) Tablet,Delayed Release (Dr/Ec) 325 mg PO QOD Qty: 30 0RF polyethylene glycol 3350 [Miralax] 17 gram/dose powder 4 g PO QDAY Qty: 510 0RF pantoprazole [Protonix] [address] for susp in packet 40 mg PO BID MDD 2 Qty: 30 0RF ondansetron 4 mg tablet,disintegrating 4 mg PO Q8H PRN (Reason: nausea and vomiting) Qty: 14 0RF Referrals: Tyrone Langford MD [Primary Care Provider, Family Practice] - In 1 week Problem List Clinical Impression: Irritable bowel syndrome (IBS), Diarrhea, Abdominal pain Impression comment: IBS flare Patient/Caregiver Discharge Instructions Discharge Activity: activity as tolerated Diet Instructions: Clear liquid diet x 24 to 48 hours and advance as tolerated. Medication as directed. Education Materials: ED Irritable Bowel Syndrome Additional Instructions: Clear liquid diet x 24 to 48 hours advance as tolerated. Avoid dairy products hot spicy foods and caffeine for the next week. Medications as directed. Follow-up with primary care/GI specialist within 7 to 10 days and return if worsening Print Language: Yakut Stand Alone Forms: [employer] Award Info., Patient Portal Info Letter
[2025-06-16 21:58] VITALS: BP 213/80; PULSE 70; RESP 19; TEMP 37.1; O2SAT 97
[2025-06-16 22:43] VITALS: BP 181/70; PULSE 71; RESP 18; O2SAT 96
[2025-06-17 00:28] VITALS: BP 171/69; PULSE 67; RESP 16; TEMP 36.6; O2SAT 98
[2025-06-17 01:11] VITALS: BP 176/76; PULSE 75; RESP 18; O2SAT 95
[2025-06-17] MEDS: DIAZEPAM INJ 5 MG/ML VIAL 2 ML 2.5 MG IM (02:48)
[2025-06-17 06:24] VITALS: BP 168/70; PULSE 68; RESP 17; TEMP 36.7; O2SAT 96
== END 2025-06-17 06:26 | disposition home or self-care (01) ==
PROVIDERS: Physician Assistant; Emergency Provider Emergency Medicine; PCP Family Medicine
DX: K51.90 Ulcerative colitis, unspecified, without complications (principal); E03.9 Hypothyroidism, unspecified; E11.9 Type 2 diabetes mellitus without complications; E66.9 Obesity, unspecified; E78.00 Pure hypercholesterolemia, unspecified; G47.33 Obstructive sleep apnea (adult) (pediatric); I10 Essential (primary) hypertension; I48.91 Unspecified atrial fibrillation; M19.90 Unspecified osteoarthritis, unspecified site; Z79.01 Long term (current) use of anticoagulants; Z79.84 Long term (current) use of oral hypoglycemic drugs; Z79.890 Hormone replacement therapy; Z87.19 Personal history of other diseases of the digestive system; Z87.442 Personal history of urinary calculi; Z90.49 Acquired absence of other specified parts of digestive tract; Z90.710 Acquired absence of both cervix and uterus; Z96.60 Presence of unspecified orthopedic joint implant
CPT/HCPCS: 36415; 74176; 80053; 83690; 84484; 85025; 93005; 96372; 99284; J3360; J3490; A9270

== ENCOUNTER 2025-06-17 11:46 | Emergency (ER) | payer MEDICARE, BC, SELFPAY ==
[2025-06-17 12:04] VITALS: BP 147/61; PULSE 110; RESP 18; TEMP 37.1; O2SAT 94; BMI 27.4
--- NOTE | 2025-06-17 12:15 | PD.EDABDPN ---
ED Abdominal Pain RME/HPI General Chief Complaint: Abdominal Pain Stated complaint: Abdominal cramping since this morning Time seen by provider: 06/17/25 12:04 Arrival date/time: 06/17/25 11:46 79-year-old female patient with significant history of chronic abdominal pain, diabetes mellitus, anxiety, was brought in by friend for evaluation regarding lower abdominal cramping. Patient was seen here last night and was discharged early this morning, workup including CT scan of the abdomen, laboratory workup, all came back normal. Patient told me that when she arrived home she developed lower abdominal cramping again, described as dull ache, severity moderate. No vomiting but complained of loose stools. No blood in the stool. No fever no vomiting no other complaints noted. Patient is known to this emergency room coming for the same complaints. Related Data Home Medications ?Medication ?Instructions ?Recorded ?Confirmed Bifidobacterium infantis 4 mg 4 mg PO DAILY 06/27/23 02/05/25 capsule (Align (B.infantis)) acetaminophen 500 mg tablet 500 mg PO PRN PRN Pain 06/27/23 02/05/25 cholecalciferol (vitamin D3) 25 25 mcg PO 1XD 06/27/23 02/05/25 mcg (1,000 unit) tablet (Vitamin D3) levothyroxine 50 mcg tablet 50 mcg PO DAILY 06/27/23 02/05/25 metformin 500 mg tablet 500 mg PO DAILY 06/27/23 02/05/25 alprazolam 0.5 mg tablet 0.5 mg PO BID PRN Anxiety 10/28/23 02/05/25 benazepril 20 mg tablet 20 mg PO QDAY 10/28/23 02/05/25 loperamide 2 mg capsule 2 mg PO QDAY 10/28/23 02/06/25 pantoprazole 40 mg tablet,delayed 40 mg PO BID 10/28/23 02/05/25 release apixaban 5 mg tablet (Eliquis) 5 mg PO QDAY 06/11/24 02/05/25 alprazolam 0.5 mg tablet (Xanax) 0.5 mg PO TID PRN anxiety 02/05/25 02/05/25 ascorbic acid (vitamin C) 500 mg 500 mg PO QDAY 02/05/25 02/05/25 tablet (Vitamin C) Previous Rx's ?Medication ?Instructions ?Recorded ondansetron 4 mg disintegrating 4 mg PO Q8H PRN nausea and 02/22/24 tablet vomiting #30 tabs lidocaine HCl 2 % mucosal solution 5 ml PO TIDPC PRN dyspepsia #300 mL 07/02/24 (Lidocaine Viscous) sucralfate 100 mg/mL oral 10 ml PO TID #500 mL 07/02/24 suspension (Carafate) magnesium hydroxide 2,400 mg/10 mL 30 ml PO QDAY PRN constipation #60 01/22/25 oral suspension (Milk Of Magnesia mL Concentrated) sennosides 8.6 mg-docusate sodium 2 tab-cap (2 x 8.6-50 mg) PO QDAY 01/22/25 50 mg tablet (Senokot-S) PRN constipation #20 tabs duloxetine 60 mg capsule,delayed 60 mg PO QDAY #30 caps 02/14/25 release (Cymbalta) ferrous sulfate 325 mg (65 mg 325 mg PO QOD #30 tabs 02/14/25 iron) tablet,delayed release ondansetron 4 mg disintegrating 4 mg PO Q8H PRN nausea and 02/26/25 tablet vomiting #10 tabs polyethylene glycol 3350 17 4 g PO QDAY #510 grams 02/26/25 gram/dose oral powder (Miralax) baclofen 5 mg tablet 5 mg PO BID PRN muscle spasm #10 06/03/25 tabs pantoprazole 40 mg granules 40 mg PO BID ULCER #30 ea 06/06/25 delayed-release for susp in packet (Protonix) ondansetron 4 mg disintegrating 4 mg PO Q8H PRN nausea and 06/11/25 tablet vomiting #14 tabs hydrocodone 5 mg-acetaminophen 325 1 tab PO Q8H PRN pain #20 tabs 06/17/25 mg tablet promethazine 25 mg tablet 12.5 mg (1/2 x 25 mg) PO TID PRN 06/17/25 nausea #14 tabs Allergies Allergy/AdvReac Type Severity Reaction Status Date / Time amoxicillin (From Augmentin) Allergy Severe Hives Verified 06/17/25 11:52 aspirin Allergy Severe Abdominal Verified 06/17/25 11:52 Pain ciprofloxacin (From Cipro) Allergy Severe Gastrointestinal Verified 06/17/25 11:52 Upset clavulanic acid (From Allergy Severe Hives Verified 06/17/25 11:52 Augmentin) codeine Allergy Severe Nausea Verified 06/17/25 11:52 fluconazole Allergy Severe Rash Verified 06/17/25 11:52 gabapentin Allergy Severe Abdominal Verified 06/17/25 11:52 Pain ketorolac (From Toradol) Allergy Severe Abdominal Verified 06/17/25 11:52 Pain nalbuphine Allergy Severe Abdominal Verified 06/17/25 11:52 Pain Sulfa (Sulfonamide Allergy Severe Hives Verified 06/17/25 11:52 Antibiotics) tizanidine Allergy Severe Rash Verified 06/17/25 11:52 tramadol Allergy Severe Rash Verified 06/17/25 11:52 dicyclomine (From Bentyl) AdvReac Severe Abdominal Verified 06/17/25 11:52 Pain Review of Systems Review of Systems Narrative Review of Systems: Review of system reviewed and within normal limits except mentioned in HPI ED Exam Narrative Physical exam: VITAL SIGNS: Reviewed. GENERAL APPEARANCE: Alert and interactive, follows commands, no acute distress, HEAD AND FACE: Non-traumatic. ENT: PERRL, pink conjunctivitis, eyelid no trauma, Mucous membrane moist. NECK: Supple, nontender, no nuchal rigidity. CHEST: No tenderness, no crepitus, no paradoxical movement, no retractions. LUNGS: Clear, well ventilated, symmetric, no rales, no wheezing, no ronchi, no stridor, good breath sounds bilaterally. HEART: Regular rate, regular rhythm, no murmur, no gallops. ABDOMEN: Soft, positive bowel sounds, nondistended, no guarding, lower abdominal tenderness, soft to touch., No rebound, no masses, RECTAL: Deferred. GENITAL: Deferred. NEUROLOGICAL: Gross motor function intact sensory function intact, Appropriate for age. MUSCULOSKELETAL: low back nontender, full range of motion. EXTREMITIES: Nontender, full range of motion. SKIN: Color pink, dry, no rash, no lacerations, no abrasions, no contusions. LYMPHATICS: Deferred. Course Quality Measures none Orders Category Date Time Status Dexamethasone Inj [Decadron Inj] Med 06/17/25 12:09 Discontinued 10 mg IM X1 ONE Diazepam Inj [Valium Inj] Med 06/17/25 12:09 Discontinued 5 mg IM X1 ONE Metoclopramide Inj [Reglan Inj] Med 06/17/25 12:15 Discontinued 10 mg IM X1 ONE Vital Signs Vital signs: Vital Signs Temperature 98.8 F 06/17/25 12:04 Pulse Rate 110 H 06/17/25 12:04 Respiratory Rate 18 06/17/25 12:04 Blood Pressure 147/61 H 06/17/25 12:04 Pulse Oximetry (%) 94 L 06/17/25 12:04 Oxygen Delivery Method Room Air 06/17/25 12:04 Abdominal Pain MDM MDM Narrative MDM Narrative:: 79-year-old female patient with significant history of chronic abdominal pain, diabetes mellitus, anxiety, was brought in by friend for evaluation regarding lower abdominal cramping. Patient was seen here last night and was discharged early this morning, workup including CT scan of the abdomen, laboratory workup, all came back normal. Patient told me that when she arrived home she developed lower abdominal cramping again, described as dull ache, severity moderate. No vomiting but complained of loose stools. No blood in the stool. No fever no vomiting no other complaints noted. Patient is known to this emergency room coming for the same complaints. Repeat imaging or workup is not needed at this time, patient was medicated with Reglan, Valium, and Decadron for possible IBS flareup. She is stable for discharge home Patient data External records reviewed:: None Clinical information provided by:: patient Social determinants that could affect healthcare access:: none Patient has the following chronic illnesses:: Diabetes mellitus, anxiety, history of IBS How is presenting disease/condition affected by chronic disease/condition?: exacerbated by Evaluation data The following diagnostics were reviewed and interpreted by me:: other (specify) (None) Lab and/or radiology exams considered but not ordered:: None Interpretation Summary: None Medications / Prescriptions Medications or Prescriptions considered but not ordered:: None Medication administrations:: Medication Administration History Discontinued Medications Dexamethasone Sodium Phosphate (Dexamethasone Sod Phos Inj 10 Mg/Ml Vial) 10 mg IM X1 ONE Stop: 06/17/25 12:10 Last Admin: 06/17/25 12:40 Dose: Not Given Documented By: SARAH Non-Admin Reason: Patient Refused Diazepam (Diazepam Inj 5 Mg/Ml Vial 2 Ml) 5 mg IM X1 ONE Stop: 06/17/25 12:10 Last Admin: 06/17/25 12:34 Dose: 5 mg Documented By: SARAH Metoclopramide HCl (Metoclopramide Inj 5 Mg/Ml Vial 2 Ml) 10 mg IM X1 ONE; Protocol Stop: 06/17/25 12:16 Last Admin: 06/17/25 12:40 Dose: 10 mg Documented By: SARAH Rodrigues Consultations Consultation(s) initiated? (list below): No Diagnosis Differential diagnosis abdominal pain: abdominal pain, constipation and gastroenteritis Most likely diagnosis given after review of the tests above:: IBS flare Admission Indicated Admission indicated?: not indicated Admission Request Was there a request for admission?: No Disposition Plan Disposition Plan: Discharge Discharge Attestation Discharge Attestation: The patient and all family members were given an opportunity to ask questions and understood the discharge instructions. Discharge instructions specifically effects, indications for sooner follow up or return to the emergency department, and the expected course of current diagnosis. Patient condition: Stable Discharge Plan Plan Patient Disposition: HOME (Self Care) Discharge Disposition comment: Stable Prescriptions/Referrals Prescriptions/Med Rec: No Action metformin 500 mg Tablet 500 mg PO DAILY acetaminophen 500 mg Tablet 500 mg PO PRN MDD 4 PRN (Reason: Pain) levothyroxine 50 mcg Tablet 50 mcg PO DAILY cholecalciferol (vitamin D3) [Vitamin D3] 25 mcg (1,000 unit) Tablet 25 mcg PO 1XD Align (B.infantis) 4 mg Capsule 4 mg PO DAILY loperamide 2 mg capsule 2 mg PO QDAY alprazolam 0.5 mg tablet 0.5 mg PO BID PRN (Reason: Anxiety) Patient Comments: TAKE 1 TABLET BY MOUTH THREE TIMES DAILY NEEDED FOR ANXIETY pantoprazole 40 mg tablet,delayed release (DR/EC) 40 mg PO BID Patient Comments: TAKE 1 TABLET BY MOUTH DAILY benazepril 20 mg tablet 20 mg PO QDAY ondansetron 4 mg tablet,disintegrating 4 mg PO Q8H PRN (Reason: nausea and vomiting) Qty: 30 0RF lidocaine HCl [Lidocaine Viscous] 2 % solution 5 ml PO TIDPC MDD 15 mL PRN (Reason: dyspepsia) Qty: 300 0RF sucralfate [Carafate] 100 mg/mL suspension 10 ml PO TID Qty: 500 0RF Rx Instructions: swish in mouth and swallow; use after food/drink ondansetron 4 mg tablet,disintegrating 4 mg PO Q8H PRN (Reason: nausea and vomiting) Qty: 10 0RF baclofen 5 mg tablet 5 mg PO BID PRN (Reason: muscle spasm) Qty: 10 0RF Eliquis 5 mg Tablet 5 mg PO QDAY sennosides-docusate sodium [Senokot-S] 8.6-50 mg tablet 2 tab-cap PO QDAY PRN (Reason: constipation) Qty: 20 0RF magnesium hydroxide [Milk Of Magnesia Concentrated] 2,400 mg/10 mL suspension 30 ml PO QDAY PRN (Reason: constipation) Qty: 60 0RF ascorbic acid (vitamin C) [Vitamin C] 500 mg tablet 500 mg PO QDAY alprazolam [Xanax] 0.5 mg tablet 0.5 mg PO TID PRN (Reason: anxiety) duloxetine [Cymbalta] 60 mg capsule,delayed release(DR/EC) 60 mg PO QDAY Qty: 30 0RF ferrous sulfate 325 mg (65 mg iron) Tablet,Delayed Release (Dr/Ec) 325 mg PO QOD Qty: 30 0RF polyethylene glycol 3350 [Miralax] 17 gram/dose powder 4 g PO QDAY Qty: 510 0RF pantoprazole [Protonix] [address] for susp in packet 40 mg PO BID MDD 2 Qty: 30 0RF ondansetron 4 mg tablet,disintegrating 4 mg PO Q8H PRN (Reason: nausea and vomiting) Qty: 14 0RF promethazine 25 mg tablet 12.5 mg PO TID PRN (Reason: nausea) Qty: 14 0RF hydrocodone-acetaminophen 5-325 mg tablet 1 tab PO Q8H MDD 3 tab PRN (Reason: pain) Qty: 20 0RF Problem List Clinical Impression: Irritable bowel syndrome (IBS) Patient/Caregiver Discharge Instructions Discharge Activity: activity as tolerated Education Materials: ED Irritable Bowel Syndrome Additional Instructions: Thank you for the opportunity for serving you today. You are stable for discharged . You are advised to: Follow-up with your PCP in 1 to 2 days Return to ED for worsening of symptoms Increase oral fluids Take medication as prescribed by your PCP Print Language: Vietnamese Stand Alone Forms: [facility] Award Info., Patient Portal Info Letter PA/ZULEIKA Supervising Physician FEROZ/ZULEIKA Supervising Physician: MD Maricarmen
[2025-06-17] MEDS: DIAZEPAM INJ 5 MG/ML VIAL 2 ML IM (12:34)
[2025-06-17] MEDS: METOCLOPRAMIDE INJ 5 MG/ML VIAL 2 ML 10 MG IM (12:40)
[2025-06-17 14:00] VITALS: BP 136/60; PULSE 92; RESP 18; TEMP 36.6; O2SAT 95
== END 2025-06-17 14:01 | disposition home or self-care (01) ==
PROVIDERS: Emergency Provider Emergency Medicine
DX: K58.0 Irritable bowel syndrome with diarrhea (principal); E11.9 Type 2 diabetes mellitus without complications; F41.9 Anxiety disorder, unspecified; Z79.01 Long term (current) use of anticoagulants; Z79.84 Long term (current) use of oral hypoglycemic drugs; Z79.890 Hormone replacement therapy
CPT/HCPCS: 96372; 99282; J2765; J3360

== ENCOUNTER 2025-06-18 13:22 | Emergency (ER) | payer MEDICARE, BC, SELFPAY ==
[2025-06-18 13:24] VITALS: BP 168/69; PULSE 80; RESP 19; TEMP 36.7; O2SAT 94
[2025-06-18 13:48] VITALS: PULSE 92; RESP 22; O2SAT 99; BMI 31.2
[2025-06-18 13:55] VITALS: PULSE 82
--- NOTE | 2025-06-18 14:09 | EDNOTE_ITS ---
<Statement entered by Jenniffer Santana MD - 06/19/25 17:55> As co-signing physician, I was present and available for consult prn. I concur with the plan and care as documented by the midlevel provider. ED General RME/HPI General Chief complaint: Abdominal Pain Stated complaint: RECTAL BLEED Time Seen by Provider: 06/18/25 13:56 Arrival date/time: 06/18/25 13:22 CC: Abdominal pain, with red in my brief patient complaining of low abdominal pain HPI patient has been here many times before including yesterday patient stable vital signs no other complaints Related Data Home Medications ?Medication ?Instructions ?Recorded ?Confirmed Bifidobacterium infantis 4 mg 4 mg PO DAILY 06/27/23 0 02/05/25 capsule (Align (B.infantis)) acetaminophen 500 mg tablet 500 mg PO PRN PRN Pain 02/05/25 cholecalciferol (vitamin D3) 25 25 mcg PO 1XD 06/27/23 02/05/25 mcg (1,000 unit) tablet (Vitamin D3) levothyroxine 50 mcg tablet 50 mcg PO DAILY 06/27/23 0 02/05/25 metformin 500 mg tablet 500 mg PO DAILY 06/27/23 alprazolam 0.5 mg tablet 0.5 mg PO BID PRN Anxiety 02/05/25 benazepril 20 mg tablet 20 mg PO QDAY 10/28/2302/05 loperamide 2 mg capsule 2 mg PO QDAY 10/28/23 pantoprazole 40 mg tablet,delayed 40 mg PO BID 4 02/05/25 release apixaban 5 mg tablet (Eliquis) 5 mg PO QDAY 06/11/24 0 02/05/25 alprazolam 0.5 mg tablet (Xanax) 0.5 mg PO TID PRN anx iety 02/05/25 02/05/25 ascorbic acid (vitamin C) 500 mg 500 mg PO QDAY 02/05/25 tablet (Vitamin C) Previous Rx's ?Medication ?Instructions ?Recorded ondansetron 4 mg disintegrating 4 mg PO Q8H PRN nausea and 02/22/24 tablet vomiting #30 tabs lidocaine HCl 2 % mucosal solution 5 ml PO TIDPC PRN d yspepsia #300 mL 07/02/24 (Lidocaine Viscous) sucralfate 100 mg/mL oral 10 ml PO TID #500 mL 4 suspension (Carafate) magnesium hydroxide 2,400 mg/10 mL 30 ml PO QDAY PRN c onstipation #60 01/22/25 oral suspension (Milk Of Magnesia mL Concentrated) sennosides 8.6 mg-docusate sodium 2 tab-cap (2 x 8.6-5 0 mg) PO QDAY 01/22/25 50 mg tablet (Senokot-S) PRN constipation #20 tabs duloxetine 60 mg capsule,delayed 60 mg PO QDAY #30 cap s 02/14/25 release (Cymbalta) ferrous sulfate 325 mg (65 mg 325 mg PO QOD #30 tabs 0 02/14/25 iron) tablet,delayed release ondansetron 4 mg disintegrating 4 mg PO Q8H PRN nausea and 02/26/25 tablet vomiting #10 tabs polyethylene glycol 3350 17 4 g PO QDAY #510 grams gram/dose oral powder (Miralax) baclofen 5 mg tablet 5 mg PO BID PRN muscle spasm #10 06/03/25 tabs pantoprazole 40 mg granules 40 mg PO BID ULCER #30 ea 06/06/25 delayed-release for susp in packet (Protonix) ondansetron 4 mg disintegrating 4 mg PO Q8H PRN nausea and 06/11/25 tablet vomiting #14 tabs hydrocodone 5 mg-acetaminophen 325 1 tab PO Q8H PRN pa in #20 tabs 06/17/25 mg tablet promethazine 25 mg tablet 12.5 mg (1/2 x 25 mg) PO TID PRN 06/17/25 nausea #14 tabs Allergies Allergy/AdvReac Type Severity Reaction Status Date / Time amoxicillin (From Augmentin) Allergy Severe Hives Verified 06/18/25 13:47 aspirin Allergy Severe Abdominal Verified 06/18/25 13:47 Pain ciprofloxacin (From Cipro) Allergy Severe Gastrointestinal Verified 06/18/25 13:47 Upset clavulanic acid (From Allergy Severe Hives Verified 06/18/25 13:47 Augmentin) codeine Allergy Severe Nausea Verified 06/18/25 13:47 fluconazole Allergy Severe Rash Verified 06/18/25 13:47 gabapentin Allergy Severe Abdominal Verified 06/18/25 13:47 Pain ketorolac (From Toradol) Allergy Severe Abdominal Verified 06/18/25 13:47 Pain nalbuphine Allergy Severe Abdominal Verified 06/18/25 13:47 Pain Sulfa (Sulfonamide Allergy Severe Hives Verified 06/18/25 13:47 Antibiotics) tizanidine Allergy Severe Rash Verified 06/18/25 13:47 tramadol Allergy Severe Rash Verified 06/18/25 13:47 dicyclomine (From Bentyl) AdvReac Severe Abdominal Verified 06/18/25 13:47 Pain Review of Systems Review of Systems Narrative Review of Systems: GEN: No fever, no chills, no weight loss EYES: No discharge, no visual changes, no pain HEENT: No ear pain, no congestion, no sore throat PULM: No shortness of breath, no cough, no congestion CV: No chest pain, no dyspnea on exertion, no palpitations GI: No nausea, no vomiting, no diarrhea, + pain, no constipation : No frequency, no urgency, no dysuria MUSC/SKEL: No joint pain, no back pain SKIN: No rash PSYCH: No hallucinations, no depression HEME/LYMPH: No easy bleeding or bruising tendencies NEURO: No weakness, no headache ED Exam Narrative Physical exam: [General: Obese not in anyacute distress Head normocephalic HEENT: Within acceptable limits Neck is supple nontender Chest equal chest rise nontender to palpation Respiratory: Clear to auscultation no wheezes crackles or rubs CV: Rate rhythm is regular no murmurs rubs or clicks Abdomen is distended secondary to body habitus soft nontender no masses positive bowel sounds all 4 quadrants Back: No CVA tenderness no spinous process tenderness from cervical spine thoracic and lumbar spine Skin: Intact no petechiae rash induration ulceration or crepitus Extremities: Moving all extremitiesagainst resistance cap refill less than 2 seconds neurosensory intact Neuro: Awake alert oriented x3 Glascow coma 15 no focal deficits] Course Quality Measures none Orders Category Date Time Status Parachutist/Combatant Diver Qualified Q4H START 00 Care 06/18/25 13:55 Completed In and Out Catheter X1 Care 06/18/25 14:08 Completed Occult Blood,Stool (Nursing) ONCE Care 06/18/25 14:25 Completed CBC Stat Lab 06/18/25 14:14 Completed CMP [Comprehensive Metabolic Panel] Stat Lab 06/18/25 14:14 Completed Occult Blood, Stool (LAB) Routine Lab 06/18/25 14:25 Completed Urinalysis Stat Lab 06/18/25 14:41 Completed Vital Signs Vital signs: Vital Signs Temperature 98.0 F 06/18/25 13:24 Pulse Rate 80 06/18/25 13:24 Respiratory Rate 19 06/18/25 13:24 Blood Pressure 168/69 H 06/18/25 13:24 Pulse Oximetry (%) 94 L 06/18/25 13:24 Oxygen Delivery Method Room Air 06/18/25 13:24 Discharge Plan Plan Patient Disposition: HOME (Self Care) Patient condition on transfer: Stable Prescriptions/Referrals Prescriptions/Med Rec: No Action metformin 500 mg Tablet 500 mg PO DAILY acetaminophen 500 mg Tablet 500 mg PO PRN MDD 4 PRN (Reason: Pain) levothyroxine 50 mcg Tablet 50 mcg PO DAILY cholecalciferol (vitamin D3) [Vitamin D3] 25 mcg (1,000 unit) Tablet 25 mcg PO 1XD Align (B.infantis) 4 mg Capsule 4 mg PO DAILY loperamide 2 mg capsule 2 mg PO QDAY alprazolam 0.5 mg tablet 0.5 mg PO BID PRN (Reason: Anxiety) Patient Comments: TAKE 1 TABLET BY MOUTH THREE TIMES DAILY NEEDED FOR ANXIETY pantoprazole 40 mg tablet,delayed release (DR/EC) 40 mg PO BID Patient Comments: TAKE 1 TABLET BY MOUTH DAILY benazepril 20 mg tablet 20 mg PO QDAY ondansetron 4 mg tablet,disintegrating 4 mg PO Q8H PRN (Reason: nausea and vomiting) Qty: 30 0RF lidocaine HCl [Lidocaine Viscous] 2 % solution 5 ml PO TIDPC MDD 15 mL PRN (Reason: dyspepsia) Qty: 300 0RF sucralfate [Carafate] 100 mg/mL suspension 10 ml PO TID Qty: 500 0RF Rx Instructions: swish in mouth and swallow; use after food/drink ondansetron 4 mg tablet,disintegrating 4 mg PO Q8H PRN (Reason: nausea and vomiting) Qty: 10 0RF baclofen 5 mg tablet 5 mg PO BID PRN (Reason: muscle spasm) Qty: 10 0RF Eliquis 5 mg Tablet 5 mg PO QDAY sennosides-docusate sodium [Senokot-S] 8.6-50 mg tablet 2 tab-cap PO QDAY PRN (Reason: constipation) Qty: 20 0RF magnesium hydroxide [Milk Of Magnesia Concentrated] 2,400 mg/10 mL suspension 30 ml PO QDAY PRN (Reason: constipation) Qty: 60 0RF ascorbic acid (vitamin C) [Vitamin C] 500 mg tablet 500 mg PO QDAY alprazolam [Xanax] 0.5 mg tablet 0.5 mg PO TID PRN (Reason: anxiety) duloxetine [Cymbalta] 60 mg capsule,delayed release(DR/EC) 60 mg PO QDAY Qty: 30 0RF ferrous sulfate 325 mg (65 mg iron) Tablet,Delayed Release (Dr/Ec) 325 mg PO QOD Qty: 30 0RF polyethylene glycol 3350 [Miralax] 17 gram/dose powder 4 g PO QDAY Qty: 510 0RF pantoprazole [Protonix] [address] for susp in packet 40 mg PO BID MDD 2 Qty: 30 0RF ondansetron 4 mg tablet,disintegrating 4 mg PO Q8H PRN (Reason: nausea and vomiting) Qty: 14 0RF promethazine 25 mg tablet 12.5 mg PO TID PRN (Reason: nausea) Qty: 14 0RF hydrocodone-acetaminophen 5-325 mg tablet 1 tab PO Q8H MDD 3 tab PRN (Reason: pain) Qty: 20 0RF Referrals: No Primary/Family,Physician [Referring Provider] - In 1 week Problem List Clinical Impression: Anemia, Abdominal pain Patient/Caregiver Discharge Instructions Education Materials: Abdominal Pain, Anemia Additional Instructions: With your primary care doctor Print Language: Emirati Stand Alone Forms: Saadia Award Info., Patient Portal Info Letter PA/INSTRUMENT INSTALLER Supervising Physician PA/INSTRUMENT INSTALLER Supervising Physician: Lucius Jimenes ENP [facility] Clinical Information Provided by: patient Medical Records reviewed [facility] Meds/Rx considered, not ordered None Labs/Rad/Tests considered, not ordered None Labs Labs: interpreted by me Imaging Imaging interpretation: none
[2025-06-18 14:15] VITALS: BP 138/65; PULSE 85; RESP 18; TEMP 36.8; O2SAT 94
[2025-06-18 14:43] LABS: Alanine Aminotransferase 15 U/L (10-49); Albumin, Serum 4.5 gm/dL (3.4-4.8); Albumin/Globulin Ratio 2.0 (1.2-2.2); Alkaline Phosphatase 66 U/L (46-116); Anion Gap 9 (7-16); Aspartate Amino Transferase 23 U/L (0-34); BUN/Creatinine Ratio 9 Ratio (12-20); Bilirubin,Total 0.2 mg/dL (0.3-1.2); Blood Urea Nitrogen 11 mg/dL (9-23); Calcium 9.3 mg/dL (8.3-10.6); Calcium (Corrected) 9.3 mg/dL (8.5-10.1); Carbon Dioxide 27.9 mMol/L (20.0-31.0); Chloride 103 mMol/L (98-107); Creatinine (Component) 1.2 mg/dL (0.6-1.3); Estimated Creatinine Clearance 34.4 mL/min (>60); Globulin 2.3 gm/dL (2.3-3.5); Glucose 123 mg/dL (74-106); Osmolality,Calculated 279 (275-295); Potassium 4.3 mMol/L (3.4-5.1); Sodium 140 mMol/L (136-145); Total Protein 6.8 gm/dL (5.7-8.2); eGFR 46 See Note
[2025-06-18 14:47] LABS: Basophils # (Auto) 0.0 Thou/mm3 (0.0-0.2); Basophils % (Auto) 1 % (0-2.5); Eosinophils # (Auto) 0.0 Thou/mm3 (0.0-0.5); Eosinophils % (Auto) 0 % (0-10); Hematocrit 30.7 % (36.0-46.0); Hemoglobin 9.7 g/dL (12.0-16.0); Immature Granulocytes Auto 0.02 Thou/mm3 (0.00-0.00); Lymphocytes # (Auto) 2.1 Thou/mm3 (1.0-4.8); Lymphocytes % (Auto) 26 % (10-50); Mean Corpuscular HGB Conc 31.6 g/dl (31.0-37.0); Mean Corpuscular Hemoglobin 26.5 pg (25.0-35.0); Mean Corpuscular Volume 84 fL (80-100); Monocytes # (Auto) 0.9 Thou/mm3 (0.0-0.8); Monocytes % (Auto) 11 % (0-12); Neutrophils # (Auto) 5.0 Thou/mm3 (1.8-7.7); Neutrophils % (Auto) 62 % (37-80); Nucleated Red Blood Cell # 0.00 Thou/mm3 (0.00-0.00); Nucleated Red Blood Cell % 0 /100 WBC (0); Platelet Count 336 Thou/mm3 (140-440); RDW Standard Deviation 46.3 fL (36.4-46.3); Red Blood Count 3.66 Miln/mm3 (4.00-5.20); White Blood Count 8.0 Thou/mm3 (3.6-11.0)
[2025-06-18 14:48] LABS: Collection Type, Urine Clean Catch; RBC,Urine 0 /hpf (0-3)
[2025-06-18 15:05] LABS: Bacteria,Urine Rare; Bilirubin,Urine Negative (Negative); Blood,Urine Negative (Negative); Clarity,Urine Clear (Clear/Hazy); Color,Urine Colorless (Lt Yel-Yel); Glucose, Urine Negative (Negative); Ketones,Urine Negative (Negative); Leukocyte Esterase,Urine Negative (Negative); Nitrite,Urine Negative (Negative); PH,Urine 6.5 (5.0-7.0); Protein,Urine Negative (Neg - Trace); Specific Gravity,Urine 1.003 (1.001-1.035); Squamous Epithelial Cell,Urine < 1 /hpf (0-5); Urobilinogen,Urine Negative mg/dL (0.0-1.0); WBC,Urine < 1 /hpf (0-5)
[2025-06-18 15:24] LABS: OBS Card Lot # 0124; OBS Performed By DIAZB; OBS QC OK? Yes; Occult Blood, Stool Negative (Negative)
[2025-06-18 15:56] VITALS: BP 165/67; PULSE 70; RESP 14; TEMP 36.9; O2SAT 98
== END 2025-06-18 16:02 | disposition home or self-care (01) ==
PROVIDERS: Registered Nurse General Practice; Emergency Provider Emergency Medicine; PCP Family Medicine
DX: K62.5 Hemorrhage of anus and rectum (principal); D64.9 Anemia, unspecified; Z79.01 Long term (current) use of anticoagulants; Z79.84 Long term (current) use of oral hypoglycemic drugs
CPT/HCPCS: 36415; 51701; 80053; 81001; 82270; 85025; 99282

== ENCOUNTER 2025-06-19 18:36 | Emergency (ER) | payer MEDICARE, BC, SELFPAY ==
[2025-06-19 18:43] VITALS: BP 165/81; PULSE 97; RESP 18; TEMP 37.1; O2SAT 96
[2025-06-19 18:57] VITALS: PULSE 80; O2SAT 99; BMI 27.4
--- NOTE | 2025-06-19 22:55 | PC.NURSE ---
NA X3 [id number], 2200, 2256
== END 2025-06-19 22:56 | disposition left against medical advice (07) ==
PROVIDERS: Emergency Provider Emergency Medicine; PCP Family Medicine
DX: Z53.21 Procedure and treatment not carried out due to patient leaving prior to being seen by health care provider (principal)
CPT/HCPCS: 99281

== ENCOUNTER 2025-06-20 15:42 | Emergency (ER) | payer MEDICARE, BC, SELFPAY ==
[2025-06-20 15:42] VITALS: PULSE 84; RESP 16; O2SAT 99; BMI 31.2
[2025-06-20 15:45] VITALS: BP 137/78; PULSE 88; RESP 18; TEMP 36.6; O2SAT 95
--- NOTE | 2025-06-20 16:21 | EKG_ITS ---
[facility] Test Date: 2025-06-20 Pat Name: MARIBEL ALAMO Department: Room: - Gender: Female Travel Registered Nurse Oncology: : 1945 Requested By: Antonino Larios Order Number: [id number] Reading MD: Antonino Larios Measurements Intervals [place] Rate: 80 P: 88 LA: 138 QRS: -11 QRSD: 102 T: 59 QT: 361 QTc: 419 Interpretive Statements SINUS RHYTHM WITH OCCASIONAL VENTRICULAR PREMATURE COMPLEXES MINIMAL VOLTAGE CRITERIA FOR LVH, CONSIDER NORMAL VARIANT [MEETS CRITERIA IN ONE OF: R(aVL), S(V1), R(V5), R(V5/V6)+S(V1)] POSSIBLE ANTERIOR MYOCARDIAL INFARCTION , OF INDETERMINATE AGE [30 ms Q WAVE IN V3/V4, OR R < 0.2 mV IN V4] Compared to ECG 06/16/2025 19:44:23 Ventricular premature complex(es) now present Myocardial infarct finding still present /store/S0/[id number]
--- NOTE | 2025-06-20 16:25 | EDRME_ITS ---
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 I briefly performed a screening evaluation to initiate work-up and expedite care. Complete history, physical exam, and plan of care is deferred to the provider in the main ED. Exam: Constitutional: Vital Signs Reviewed. Well appearing. No acute distress. Not toxic appearing. Head: Normocephalic, atraumatic. Eyes: Conjunctiva clear. ENT: Mucous membranes moist. Neck: Trachea midline. Normal range of motion. No nuchal rigidity. Respiratory: Normal effort. No respiratory distress or accessory muscle use. Neuro: Alert and oriented. Speech normal. Skin: Warm, dry, normal color. Psych: Pleasant. Normal affect. Cooperative. Clinical Impression: Chest pain unspecified
[2025-06-20 16:39] LABS: Basophils # (Auto) 0.0 Thou/mm3 (0.0-0.2); Basophils % (Auto) 0 % (0-2.5); Eosinophils # (Auto) 0.0 Thou/mm3 (0.0-0.5); Eosinophils % (Auto) 0 % (0-10); Hematocrit 33.1 % (36.0-46.0); Hemoglobin 10.5 g/dL (12.0-16.0); Immature Granulocytes Auto 0.02 Thou/mm3 (0.00-0.00); Lymphocytes # (Auto) 2.5 Thou/mm3 (1.0-4.8); Lymphocytes % (Auto) 25 % (10-50); Mean Corpuscular HGB Conc 31.7 g/dl (31.0-37.0); Mean Corpuscular Hemoglobin 27.1 pg (25.0-35.0); Mean Corpuscular Volume 85 fL (80-100); Monocytes # (Auto) 1.0 Thou/mm3 (0.0-0.8); Monocytes % (Auto) 10 % (0-12); Neutrophils # (Auto) 6.6 Thou/mm3 (1.8-7.7); Neutrophils % (Auto) 64 % (37-80); Nucleated Red Blood Cell # 0.00 Thou/mm3 (0.00-0.00); Nucleated Red Blood Cell % 0 /100 WBC (0); Platelet Count 365 Thou/mm3 (140-440); RDW Standard Deviation 47.6 fL (36.4-46.3); Red Blood Count 3.88 Miln/mm3 (4.00-5.20); White Blood Count 10.2 Thou/mm3 (3.6-11.0)
--- NOTE | 2025-06-20 16:40 | EDNOTE_ITS ---
<Statement entered by Jenniffer Santana MD - 06/20/25 17:33> As co-signing physician, I was present and available for consult prn. I concur with the plan and care as documented by the midlevel provider. ED General RME/HPI General Chief complaint: Anxiety Stated complaint: ANXIETY Time Seen by Provider: 06/20/25 16:18 Arrival date/time: 06/20/25 15:42 CC: Palpitations, my heart rates been going up and down . HPI onset today. Denies chest pain shortness of breath or difficulty breathing. Currently denies abdominal pain RME / HPI RME / HPI narrative: 79-year-old female past medical history of atrial fibrillation whose classroom aide had recommended that she stop Eliquis 1 month prior who presents today complaining of chest pain, shortness of breath, dizziness with palpitations lasting 20 minutes at a time which started 4 hours prior when she was at her house working on her computer and intermittently goes away and then returns. I briefly performed a screening evaluation to initiate work-up and expedite care. Complete history, physical exam, and plan of care is deferred to the provider in the main ED. Exam: Constitutional: Vital Signs Reviewed. Well appearing. No acute distress. Not toxic appearing. Head: Normocephalic, atraumatic. Eyes: Conjunctiva clear. ENT: Mucous membranes moist. Neck: Trachea midline. Normal range of motion. No nuchal rigidity. Respiratory: Normal effort. No respiratory distress or accessory muscle use. Neuro: Alert and oriented. Speech normal. Skin: Warm, dry, normal color. Psych: Pleasant. Normal affect. Cooperative. Impression: Chest pain unspecified Related Data Home Medications ?Medication ?Instructions ?Recorded ?Confirmed Bifidobacterium infantis 4 mg 4 mg PO DAILY 06/27/23 0 02/05/25 capsule (Align (B.infantis)) acetaminophen 500 mg tablet 500 mg PO PRN PRN Pain 02/05/25 cholecalciferol (vitamin D3) 25 25 mcg PO 1XD 06/27/23 02/05/25 mcg (1,000 unit) tablet (Vitamin D3) levothyroxine 50 mcg tablet 50 mcg PO DAILY 06/27/23 0 02/05/25 metformin 500 mg tablet 500 mg PO DAILY 06/27/23 alprazolam 0.5 mg tablet 0.5 mg PO BID PRN Anxiety 02/05/25 benazepril 20 mg tablet 20 mg PO QDAY 10/28/2302/05 loperamide 2 mg capsule 2 mg PO QDAY 10/28/23 pantoprazole 40 mg tablet,delayed 40 mg PO BID 4 02/05/25 release apixaban 5 mg tablet (Eliquis) 5 mg PO QDAY 06/11/24 0 02/05/25 alprazolam 0.5 mg tablet (Xanax) 0.5 mg PO TID PRN anx iety 02/05/25 02/05/25 ascorbic acid (vitamin C) 500 mg 500 mg PO QDAY 02/05/25 tablet (Vitamin C) Previous Rx's ?Medication ?Instructions ?Recorded ondansetron 4 mg disintegrating 4 mg PO Q8H PRN nausea and 02/22/24 tablet vomiting #30 tabs lidocaine HCl 2 % mucosal solution 5 ml PO TIDPC PRN d yspepsia #300 mL 07/02/24 (Lidocaine Viscous) sucralfate 100 mg/mL oral 10 ml PO TID #500 mL 4 suspension (Carafate) magnesium hydroxide 2,400 mg/10 mL 30 ml PO QDAY PRN c onstipation #60 01/22/25 oral suspension (Milk Of Magnesia mL Concentrated) sennosides 8.6 mg-docusate sodium 2 tab-cap (2 x 8.6-5 0 mg) PO QDAY 01/22/25 50 mg tablet (Senokot-S) PRN constipation #20 tabs duloxetine 60 mg capsule,delayed 60 mg PO QDAY #30 cap s 02/14/25 release (Cymbalta) ferrous sulfate 325 mg (65 mg 325 mg PO QOD #30 tabs 0 02/14/25 iron) tablet,delayed release ondansetron 4 mg disintegrating 4 mg PO Q8H PRN nausea and 02/26/25 tablet vomiting #10 tabs polyethylene glycol 3350 17 4 g PO QDAY #510 grams gram/dose oral powder (Miralax) baclofen 5 mg tablet 5 mg PO BID PRN muscle spasm #10 06/03/25 tabs pantoprazole 40 mg granules 40 mg PO BID ULCER #30 ea 06/06/25 delayed-release for susp in packet (Protonix) ondansetron 4 mg disintegrating 4 mg PO Q8H PRN nausea and 06/11/25 tablet vomiting #14 tabs hydrocodone 5 mg-acetaminophen 325 1 tab PO Q8H PRN pa in #20 tabs 06/17/25 mg tablet promethazine 25 mg tablet 12.5 mg (1/2 x 25 mg) PO TID PRN 06/17/25 nausea #14 tabs Allergies Allergy/AdvReac Type Severity Reaction Status Date / Time amoxicillin (From Augmentin) Allergy Severe Hives Verified 06/20/25 15:46 aspirin Allergy Severe Abdominal Verified 06/20/25 15:46 Pain ciprofloxacin (From Cipro) Allergy Severe Gastrointestinal Verified 06/20/25 15:46 Upset clavulanic acid (From Allergy Severe Hives Verified 06/20/25 15:46 Augmentin) codeine Allergy Severe Nausea Verified 06/20/25 15:46 fluconazole Allergy Severe Rash Verified 06/20/25 15:46 gabapentin Allergy Severe Abdominal Verified 06/20/25 15:46 Pain ketorolac (From Toradol) Allergy Severe Abdominal Verified 06/20/25 15:46 Pain nalbuphine Allergy Severe Abdominal Verified 06/20/25 15:46 Pain Sulfa (Sulfonamide Allergy Severe Hives Verified 06/20/25 15:46 Antibiotics) tizanidine Allergy Severe Rash Verified 06/20/25 15:46 tramadol Allergy Severe Rash Verified 06/20/25 15:46 dicyclomine (From Bentyl) AdvReac Severe Abdominal Verified 06/20/25 15:46 Pain Review of Systems Review of Systems Narrative Review of Systems: GEN: No fever, no chills, no weight loss EYES: No discharge, no visual changes, no pain HEENT: No ear pain, no congestion, no sore throat PULM: No shortness of breath, no cough, no congestion CV: No chest pain, no dyspnea on exertion, + palpitations GI: No nausea, no vomiting, no diarrhea, no pain, no constipation : No frequency, no urgency, no dysuria MUSC/SKEL: No joint pain, no back pain SKIN: No rash PSYCH: No hallucinations, no depression HEME/LYMPH: No easy bleeding or bruising tendencies NEURO: No weakness, no headache Past Medical History Past Medical History NEUROLOGIC: Negative Neurological Disorders or Seizures CARDIAC: Positive Cardiac Disorders, Cardiac Arrhythmia, Atrial Fibrillation, Hypercholesterolemia and Hypertension; Negative Congestive Heart Failure RESPIRATORY: Positive Pneumonia and Sleep Apnea; Negative Chronic Obstructive Pulmonary Disease (COPD) or Asthma GASTROINTESTINAL: Positive Gastrointestinal Disorders, Gastrointestinal Bleed, Colitis, Ulcerative Colitis, Diverticulitis, Diverticulosis, Ulcer, Irritable Bowel, Obstructive Bowel, Hemorrhoids and Obesity GENITOURINARY: Positive Kidney Stones; Negative Genitourinary Disorders or Renal Disease REPRODUCTIVE: Positive Previous Pregnancies MUSCULOSKELETAL: Positive Musculoskeletal Disorders and Arthritis ENT: Positive Cataracts and Ear Infection ENDOCRINE: Positive Diabetes Mellitus Type 2 and Hypothyroidism; Negative Diabetes Mellitus Type 1 HEMATOLOGIC: Negative Blood Disorders or Sickle Cell Disease PSYCHO/SOCIAL: Positive Anxiety OTHER HISTORY: Positive Falls, Blood Transfusions, Chicken Pox, Mumps and C lostridium Difficile; Negative Blood Transfusion Reaction, Anesthesia Reactions or Cancer Family History FAMILY HISTORY: Positive Family Cardiac Disorders; Negative Family Respiratory Disorders Surgical History SURGICAL: Positive Cardiac Surgery, Endocrine Surgery, Thyroidectomy, Abdominal Surgery, Joint Replacement, Hysterectomy and Section Social History SMOKING STATUS: Never smoker SUBSTANCE USE: does not use ED Exam Narrative Physical exam: [General: Obese not in any acute distress Head normocephalic HEENT: Within acceptable limits Neck is supple nontender Chest equal chest rise nontender to palpation Respiratory: Clear to auscultation no wheezes crackles or rubs CV: Rate rhythm is regular no murmurs rubs or clicks Abdomen is distended secondary to body habitus soft nontender no masses positive bowel sounds all 4 quadrants Back: No CVA tenderness no spinous process tenderness from cervical spine thoracic and lumbar spine Skin: Intact no petechiae rash induration ulceration or crepitus Extremities: Moving all extremity against resistance cap refill less than 2 seconds neurosensory intact Neuro: Awake alert oriented x3 Glascow coma 15 no focal deficits] Course Quality Measures none Orders Category Date Time Status EKG (ED ONLY) *Do not use* NOW Care 06/20/25 16:21 Completed EKG (ED Only) Stat Exams 06/20/25 16:21 Draft CBC Stat Lab 06/20/25 16:28 Completed CMP [Comprehensive Metabolic Panel] Stat Lab 06/20/25 16:28 Completed TSH [Thyroid Stimulating Hormone] Stat Lab 06/20/25 16:28 Completed Troponin I Stat Lab 06/20/25 16:28 Completed Vital Signs Vital signs: Vital Signs Temperature 98 F 06/20/25 15:45 Pulse Rate 88 06/20/25 15:45 Respiratory Rate 18 06/20/25 15:45 Blood Pressure 137/78 H 06/20/25 15:45 Pulse Oximetry (%) 95 06/20/25 15:45 Oxygen Delivery Method Room Air 06/20/25 15:45 Discharge Plan Plan Patient Disposition: HOME (Self Care) Patient condition on transfer: Stable Prescriptions/Referrals Prescriptions/Med Rec: No Action metformin 500 mg Tablet 500 mg PO DAILY acetaminophen 500 mg Tablet 500 mg PO PRN MDD 4 PRN (Reason: Pain) levothyroxine 50 mcg Tablet 50 mcg PO DAILY cholecalciferol (vitamin D3) [Vitamin D3] 25 mcg (1,000 unit) Tablet 25 mcg PO 1XD Align (B.infantis) 4 mg Capsule 4 mg PO DAILY loperamide 2 mg capsule 2 mg PO QDAY alprazolam 0.5 mg tablet 0.5 mg PO BID PRN (Reason: Anxiety) Patient Comments: TAKE 1 TABLET BY MOUTH THREE TIMES DAILY NEEDED FOR ANXIETY pantoprazole 40 mg tablet,delayed release (DR/EC) 40 mg PO BID Patient Comments: TAKE 1 TABLET BY MOUTH DAILY benazepril 20 mg tablet 20 mg PO QDAY ondansetron 4 mg tablet,disintegrating 4 mg PO Q8H PRN (Reason: nausea and vomiting) Qty: 30 0RF lidocaine HCl [Lidocaine Viscous] 2 % solution 5 ml PO TIDPC MDD 15 mL PRN (Reason: dyspepsia) Qty: 300 0RF sucralfate [Carafate] 100 mg/mL suspension 10 ml PO TID Qty: 500 0RF Rx Instructions: swish in mouth and swallow; use after food/drink ondansetron 4 mg tablet,disintegrating 4 mg PO Q8H PRN (Reason: nausea and vomiting) Qty: 10 0RF baclofen 5 mg tablet 5 mg PO BID PRN (Reason: muscle spasm) Qty: 10 0RF Eliquis 5 mg Tablet 5 mg PO QDAY sennosides-docusate sodium [Senokot-S] 8.6-50 mg tablet 2 tab-cap PO QDAY PRN (Reason: constipation) Qty: 20 0RF magnesium hydroxide [Milk Of Magnesia Concentrated] 2,400 mg/10 mL suspension 30 ml PO QDAY PRN (Reason: constipation) Qty: 60 0RF ascorbic acid (vitamin C) [Vitamin C] 500 mg tablet 500 mg PO QDAY alprazolam [Xanax] 0.5 mg tablet 0.5 mg PO TID PRN (Reason: anxiety) duloxetine [Cymbalta] 60 mg capsule,delayed release(DR/EC) 60 mg PO QDAY Qty: 30 0RF ferrous sulfate 325 mg (65 mg iron) Tablet,Delayed Release (Dr/Ec) 325 mg PO QOD Qty: 30 0RF polyethylene glycol 3350 [Miralax] 17 gram/dose powder 4 g PO QDAY Qty: 510 0RF pantoprazole [Protonix] [address] for susp in packet 40 mg PO BID MDD 2 Qty: 30 0RF ondansetron 4 mg tablet,disintegrating 4 mg PO Q8H PRN (Reason: nausea and vomiting) Qty: 14 0RF promethazine 25 mg tablet 12.5 mg PO TID PRN (Reason: nausea) Qty: 14 0RF hydrocodone-acetaminophen 5-325 mg tablet 1 tab PO Q8H MDD 3 tab PRN (Reason: pain) Qty: 20 0RF Referrals: Tyrone Langford MD [Primary Care Provider, Family Practice] - In 1 week Problem List Clinical Impression: Palpitations Patient/Caregiver Discharge Instructions Education Materials: ED About Arrhythmias Print Language: Northern Irish Stand Alone Forms: [facility] Award Info., Patient Portal Info Letter PA/MAIL WEIGHER Supervising Physician PA/MAIL WEIGHER Supervising Physician: Lucius Jimenes ENP [facility] Clinical Information Provided by: patient and EMS [facility] Meds/Rx considered, not ordered None Labs/Rad/Tests considered, not ordered None Chronic Illness/Social Conditions Explain: Chronic abdominal pain IBS EKG Interpretation EKG #1: EKG Interpretation: EKG performed at 1623 shows a ventricular rate of 80 ID interval 138 QRS of 102 QTc of 419 this is sinus rhythm with occasional PVC no significant change from the past 4 EKGs. Labs Labs: interpreted by [facility] Lab(s) Interpretation(s): CBC shows no acute leukocytosis and mild anemia with a hemoglobin of 10.5 and hematocrit of 33.1 no thrombocytopenia CMP shows no significant electrolyte imbalances other than a glucose of 172, no transaminitis or T. bili elevation Troponin is negative Imaging Imaging interpretation: none Diagnosis Differential Diagnosis ED Complaint MDM: Electrolyte imbalances ACS anxiety
[2025-06-20 17:01] LABS: Alanine Aminotransferase 18 U/L (10-49); Albumin, Serum 4.7 gm/dL (3.4-4.8); Albumin/Globulin Ratio 1.8 (1.2-2.2); Alkaline Phosphatase 74 U/L (46-116); Anion Gap 8 (7-16); Aspartate Amino Transferase 20 U/L (0-34); BUN/Creatinine Ratio 9 Ratio (12-20); Bilirubin,Total 0.2 mg/dL (0.3-1.2); Blood Urea Nitrogen 11 mg/dL (9-23); Calcium 9.4 mg/dL (8.3-10.6); Calcium (Corrected) 9.4 mg/dL (8.5-10.1); Carbon Dioxide 27.7 mMol/L (20.0-31.0); Chloride 104 mMol/L (98-107); Creatinine (Component) 1.2 mg/dL (0.6-1.3); Estimated Creatinine Clearance 34.4 mL/min (>60); Globulin 2.6 gm/dL (2.3-3.5); Glucose 172 mg/dL (74-106); Osmolality,Calculated 282 (275-295); Potassium 4.7 mMol/L (3.4-5.1); Sodium 140 mMol/L (136-145); Thyroid Stimulating Hormone 2.58 uIU/mL (0.55-4.78); Total Protein 7.3 gm/dL (5.7-8.2); Troponin I < 0.002 ng/mL (0.0-0.045); eGFR 46 See Note
== END 2025-06-20 18:21 | disposition home or self-care (01) ==
PROVIDERS: Physician Assistant; Emergency Provider Emergency Medicine; PCP Family Medicine
DX: R00.2 Palpitations (principal); I48.91 Unspecified atrial fibrillation
CPT/HCPCS: 36415; 80053; 84443; 84484; 85025; 93005; 99282

== ENCOUNTER 2025-06-20 22:41 | Emergency (ER) | payer MEDICARE, BC, SELFPAY ==
[2025-06-20 22:42] VITALS: BMI 31.2
[2025-06-20 23:21] VITALS: BP 171/70; PULSE 91; RESP 22; TEMP 36.3; O2SAT 96
[2025-06-21 00:02] LABS: Collection Type, Urine Clean Catch
--- NOTE | 2025-06-21 00:02 | PD.EDFMALE ---
ED Female Urogenital RME/HPI General Chief complaint: Urogenital-Female Stated complaint: BURNING WITH URINATION Arrival date/time: 06/20/25 22:41 RME / HPI RME / HPI Narrative: CC: pain w/ urination Patient is a 79-year-old female with a past medical history of hypertension, diabetes mellitus type 2, history of atrial fibrillation (on Eliquis), hypothyroidism, irritable bowel syndrome, history of duodenal ulcers, gastritis and esophagitis on EGD (on 02/13/2025) history of diverticulosis/diverticulitis who presented to the emergency room on 06/20/2025 with a chief complaint of dysuria for started this morning. Patient also complaining of suprapubic tenderness. Denied polyuria. Denied any new sexual partners. No Constipation. No diarrhea. No Melena. No hematochezia. Of note patient was recently discharged in the emergency room on 06/20/2025 this morning with a chief complaint of palpitations he was discharged with occasional PVCs as noted on EKG and negative troponins and no ST elevation on EKG. CBC CMP TSH Troponin UA Related Data Home Medications ?Medication ?Instructions ?Recorded ?Confirmed acetaminophen 500 mg tablet 500 mg PO PRN PRN Pain 06/27/23 02/05/25 cholecalciferol (vitamin D3) 25 25 mcg PO 1XD 06/27/23 02/05/25 mcg (1,000 unit) tablet (Vitamin D3) levothyroxine 50 mcg tablet 50 mcg PO DAILY 06/27/23 02/05/25 metformin 500 mg tablet 500 mg PO DAILY 06/27/23 02/05/25 alprazolam 0.5 mg tablet 0.5 mg PO BID PRN Anxiety 10/28/23 02/05/25 benazepril 20 mg tablet 20 mg PO QDAY 10/28/23 02/05/25 loperamide 2 mg capsule 2 mg PO QDAY 10/28/23 02/06/25 pantoprazole 40 mg tablet,delayed 40 mg PO BID 10/28/23 02/05/25 release apixaban 5 mg tablet (Eliquis) 5 mg PO QDAY 06/11/24 02/05/25 ascorbic acid (vitamin C) 500 mg 500 mg PO QDAY 02/05/25 02/05/25 tablet (Vitamin C) Previous Rx's ?Medication ?Instructions ?Recorded lidocaine HCl 2 % mucosal solution 5 ml PO TIDPC PRN dyspepsia #300 mL 07/02/24 (Lidocaine Viscous) magnesium hydroxide 2,400 mg/10 mL 30 ml PO QDAY PRN constipation #60 01/22/25 oral suspension (Milk Of Magnesia mL Concentrated) sennosides 8.6 mg-docusate sodium 2 tab-cap (2 x 8.6-50 mg) PO QDAY 01/22/25 50 mg tablet (Senokot-S) PRN constipation #20 tabs ferrous sulfate 325 mg (65 mg 325 mg PO QOD #30 tabs 02/14/25 iron) tablet,delayed release ondansetron 4 mg disintegrating 4 mg PO Q8H PRN nausea and 02/26/25 tablet vomiting #10 tabs polyethylene glycol 3350 17 4 g PO QDAY #510 grams 02/26/25 gram/dose oral powder (Miralax) baclofen 5 mg tablet 5 mg PO BID PRN muscle spasm #10 06/03/25 tabs ondansetron 4 mg disintegrating 4 mg PO Q8H PRN nausea and 06/11/25 tablet vomiting #14 tabs hydrocodone 5 mg-acetaminophen 325 1 tab PO Q8H PRN pain #20 tabs 06/17/25 mg tablet promethazine 25 mg tablet 12.5 mg (1/2 x 25 mg) PO TID PRN 06/17/25 nausea #14 tabs nitrofurantoin 100 mg PO BID UTI 5 days #10 caps 06/21/25 monohydrate/macrocrystals 100 mg capsule (Macrobid) phenazopyridine 100 mg tablet 100 mg PO TID PRN pain with 06/21/25 urination 2 days #7 tabs Allergies Allergy/AdvReac Type Severity Reaction Status Date / Time amoxicillin (From Augmentin) Allergy Severe Hives Verified 06/20/25 22:42 aspirin Allergy Severe Abdominal Verified 06/20/25 22:42 Pain ciprofloxacin (From Cipro) Allergy Severe Gastrointestinal Verified 06/20/25 22:42 Upset clavulanic acid (From Allergy Severe Hives Verified 06/20/25 22:42 Augmentin) codeine Allergy Severe Nausea Verified 06/20/25 22:42 fluconazole Allergy Severe Rash Verified 06/20/25 22:42 gabapentin Allergy Severe Abdominal Verified 06/20/25 22:42 Pain ketorolac (From Toradol) Allergy Severe Abdominal Verified 06/20/25 22:42 Pain nalbuphine Allergy Severe Abdominal Verified 06/20/25 22:42 Pain Sulfa (Sulfonamide Allergy Severe Hives Verified 06/20/25 22:42 Antibiotics) tizanidine Allergy Severe Rash Verified 06/20/25 22:42 tramadol Allergy Severe Rash Verified 06/20/25 22:42 dicyclomine (From Bentyl) AdvReac Severe Abdominal Verified 06/20/25 22:42 Pain Review of Systems Review of Systems Narrative Review of Systems: General appearance: NO weight change, NO fatigue, NO weakness, NO fever, NO chills, NO night sweats, No cough Skin: NO rash, NO itching, NO sores, NO moles HEENT: NO Trauma, NO nausea, NO vomiting, NO visual changes, NO blurry vision, NO double vision, NO tinnitus, NO vertigo, NO ear discharge, NO rhinorrhea, NO stuffiness, NO sneezing, NO allergy, NO epistaxis. NO Hoarseness, NO sore throat, NO swollen neck. Cardiac: NO Palpitations, NO dyspnea on exertion, NO orthopnea, NO paroxysmal nocturnal dyspnea, NO edema Respiratory: NO Shortness of Breath, NO Wheezing, NO Cough, NO Sputum, NO hemoptysis GI:NO appetite, NO nausea, NO vomiting, NO dysphagia, NO changes in bowel frequency, NO stool color, NO diarrhea, NO constipation, NO hemetemesis, NO hemorrhoids, NO melena, NO hematechezia, NO abdominal pain, NO jaundice Renal: Yes, Pain w/ urination, NO frequency, NO hesitancy, NO urgency, NO hematuria, NO nocturia, NO incontinence MSK: NO muscle weakness, NO gout, NO arthritis, NO muscle stiffness Neuro: NO headaches, NO tremors, NO weakness, NO paralysis, NO seizures, NO loss of consciousness, NO numbness. Hem: NO anemia, NO easy bruising/bleeding, NO petechiae, NO purpura Endo: NO heat/cold intolerance, NO excessive sweating, NO polyuria, NO polydipsia, NO polyphagia, NO thyroid problems, NO diabetes Pysch: NO mood, NO anxiety, NO depression ED Exam Narrative Physical exam: General Appearance: Alert & Oriented X3, well-nourished female who is lying in bed in no acute distress HEENT: Skull symmetrical and atraumatic. Conjunctivae pin and moist. Pupils equal, round, reactive to light and accommodation (PERRL). External ear without lesion or discharge. Straight, nares patient, mucosa pink, no discharge. Cardio: Normal Rate and Rhythm with S1 and S2 heart sounds. No murmurs or extra heart sounds auscultated. No bruits on carotid auscultation. No peripheral edema or cyanosis. Lungs: Symmetric with good expansion. Chest and back non-tender. Breath sounds vesicular without crackles, wheezing or rhonchi Abdomen: Supra-pubic tenderness, Non-tender abdomen, Non-distended, Normal Reactive Bowel Sounds Neuro: Alert, cooperative, oriented to person, place, and time. Speech clear. CN grossly intact. Upper motor strength 5/5 and Lower motor strength 5/5. Sensation intact. Course Quality Measures none Orders Category Date Time Status UA, C/S IF [Urinalysis, C/S if Indicated] Stat Lab 06/20/25 23:50 Completed Acetaminophen Tab [Tylenol Tab] Med 06/20/25 23:48 Discontinued 650 mg PO X1 ONE Nitrofurantoin Macro [Macrobid] Med 06/21/25 02:07 Discontinued 100 mg PO X1 ONE Phenazopyridine HCl [Pyridium] Med 06/21/25 02:08 Discontinued 100 mg PO X1 ONE Vital Signs Vital signs: Vital Signs Temperature 97.4 F 06/20/25 23:21 Pulse Rate 91 06/20/25 23:21 Respiratory Rate 22 H 06/20/25 23:21 Blood Pressure 171/70 H 06/20/25 23:21 Pulse Oximetry (%) 96 06/20/25 23:21 Oxygen Delivery Method Room Air 06/20/25 23:21 Urogenital - Female Patient data External records reviewed:: [facility] previous records Clinical information provided by:: patient Social determinants that could affect healthcare access:: none Patient has the following chronic illnesses:: hypertension, diabetes mellitus type 2, history of atrial fibrillation (on Eliquis), hypothyroidism, irritable bowel syndrome, history of duodenal ulcers, gastritis and esophagitis How is presenting disease/condition affected by chronic disease/condition?: uneffected by Evaluation data The following diagnostics were reviewed and interpreted by me:: lab results Lab and/or radiology exams considered but not ordered:: none Interpretation Summary: Patient is a 71-year-old female with a past medical history of hypertension hyperlipidemia diabetes mellitus type 2 atrial fibrillation on Eliquis, hypothyroidism, irritable bowel disease and history of duodenal ulcers who presented with a chief complaint of pain with urination with mild suprapubic tenderness. Primary diagnosis likely urinary tract infection given UA positive for elevated WBC count positive esterase, and positive squamous cells. Given squamous open urine concern for contamination. Patient declined to repeat urine sample. Treating patient prophylactically. Patient recommended to repeat urine sample as an outpatient with primary care provider and follow-up with urology if RBC positive in urine again. Medications / Prescriptions Medications or Prescriptions considered but not ordered:: none Medication administrations:: Medication Administration History Discontinued Medications Acetaminophen (Acetaminophen 325 Mg Tablet) 650 mg PO X1 ONE Stop: 06/20/25 23:49 Last Admin: 06/21/25 00:42 Dose: 650 mg Documented By: SM Nitrofurantoin Macrocrystals (Nitrofurantoin Macro 100 Mg Capsule) 100 mg PO X1 ONE Stop: 06/21/25 02:08 Last Admin: 06/21/25 02:15 Dose: 100 mg Documented By: AM Phenazopyridine HCl (Phenazopyridine Hcl 100 Mg Tablet) 100 mg PO X1 ONE Stop: 06/21/25 02:09 Last Admin: 06/21/25 02:15 Dose: 100 mg Documented By: AM same as above Consultations Consultation(s) initiated? (list below): No Diagnosis Urogenital Female Differential Diagnosis: urinary tract infection, bacterial vaginosis, trichomoniasis and ruptured ovarian cyst Most likely diagnosis given after review of the tests above:: Patient is a 71-year-old female with a past medical history of hypertension hyperlipidemia diabetes mellitus type 2 atrial fibrillation on Eliquis, hypothyroidism, irritable bowel disease and history of duodenal ulcers who presented with a chief complaint of pain with urination with mild suprapubic tenderness. Primary diagnosis likely urinary tract infection given UA positive for elevated WBC count positive esterase, and positive squamous cells. Given squamous open urine concern for contamination. Patient declined to repeat urine sample. Treating patient prophylactically. Patient recommended to repeat urine sample as an outpatient with primary care provider and follow-up with urology if RBC positive in urine again. Admission Indicated Admission indicated?: not indicated Admission Request Was there a request for admission?: No Disposition Plan Disposition Plan: Discharge Discharge Attestation Discharge Attestation: The patient and all family members were given an opportunity to ask questions and understood the discharge instructions. Discharge instructions specifically effects, indications for sooner follow up or return to the emergency department, and the expected course of current diagnosis. Patient condition: Stable Discharge Plan Plan Patient Disposition: HOME (Self Care) Patient condition on transfer: Stable Health Concerns: Instructions: -Please take Nitrofuratoin 100 mg orally twice daily for your urinary tract infection for 5 days. -Please take phenazopyridine 100 mg up to three times a day as NEED for pain for urination -urinary sample was poor, treating patient prophylactically, please follow up with your primary physician to repeat urine sample -Please follow up with urology given red blood cells in urine and repeat Urine sample. -continue your medication as prescribed by your primary doctor. -Please follow up with your primary care provider within one week of discharge -If your symptoms worsen,please seek immediate medical attention and return to your nearest emergency room -If you do not have a primary care provider, [facility] [address], [place] [address], Prescriptions/Referrals Prescriptions/Med Rec: New nitrofurantoin monohyd/m-cryst [Macrobid] 100 mg capsule 100 mg PO BID 5 Days Qty: 10 0RF Rx Instructions: must administer with a meal/food phenazopyridine 100 mg tablet 100 mg PO TID PRN (Reason: pain with urination ) 2 Days Qty: 7 0RF Continued metformin 500 mg Tablet 500 mg PO DAILY acetaminophen 500 mg Tablet 500 mg PO PRN MDD 4 PRN (Reason: Pain) levothyroxine 50 mcg Tablet 50 mcg PO DAILY cholecalciferol (vitamin D3) [Vitamin D3] 25 mcg (1,000 unit) Tablet 25 mcg PO 1XD loperamide 2 mg capsule 2 mg PO QDAY alprazolam 0.5 mg tablet 0.5 mg PO BID PRN (Reason: Anxiety) Patient Comments: TAKE 1 TABLET BY MOUTH THREE TIMES DAILY NEEDED FOR ANXIETY pantoprazole 40 mg tablet,delayed release (DR/EC) 40 mg PO BID Patient Comments: TAKE 1 TABLET BY MOUTH DAILY benazepril 20 mg tablet 20 mg PO QDAY lidocaine HCl [Lidocaine Viscous] 2 % solution 5 ml PO TIDPC MDD 15 mL PRN (Reason: dyspepsia) Qty: 300 0RF ondansetron 4 mg tablet,disintegrating 4 mg PO Q8H PRN (Reason: nausea and vomiting) Qty: 10 0RF baclofen 5 mg tablet 5 mg PO BID PRN (Reason: muscle spasm) Qty: 10 0RF Eliquis 5 mg Tablet 5 mg PO QDAY sennosides-docusate sodium [Senokot-S] 8.6-50 mg tablet 2 tab-cap PO QDAY PRN (Reason: constipation) Qty: 20 0RF magnesium hydroxide [Milk Of Magnesia Concentrated] 2,400 mg/10 mL suspension 30 ml PO QDAY PRN (Reason: constipation) Qty: 60 0RF ascorbic acid (vitamin C) [Vitamin C] 500 mg tablet 500 mg PO QDAY ferrous sulfate 325 mg (65 mg iron) Tablet,Delayed Release (Dr/Ec) 325 mg PO QOD Qty: 30 0RF polyethylene glycol 3350 [Miralax] 17 gram/dose powder 4 g PO QDAY Qty: 510 0RF ondansetron 4 mg tablet,disintegrating 4 mg PO Q8H PRN (Reason: nausea and vomiting) Qty: 14 0RF promethazine 25 mg tablet 12.5 mg PO TID PRN (Reason: nausea) Qty: 14 0RF hydrocodone-acetaminophen 5-325 mg tablet 1 tab PO Q8H MDD 3 tab PRN (Reason: pain) Qty: 20 0RF Discontinued Align (B.infantis) 4 mg Capsule 4 mg PO DAILY ondansetron 4 mg tablet,disintegrating 4 mg PO Q8H PRN (Reason: nausea and vomiting) Qty: 30 0RF sucralfate [Carafate] 100 mg/mL suspension 10 ml PO TID Qty: 500 0RF Rx Instructions: swish in mouth and swallow; use after food/drink alprazolam [Xanax] 0.5 mg tablet 0.5 mg PO TID PRN (Reason: anxiety) duloxetine [Cymbalta] 60 mg capsule,delayed release(DR/EC) 60 mg PO QDAY Qty: 30 0RF pantoprazole [Protonix] [address] for susp in packet 40 mg PO BID MDD 2 Qty: 30 0RF Referrals: Tyrone Langford MD [Primary Care Provider, Family Practice] - In 1 week Problem List Clinical Impression: Acute UTI Patient/Caregiver Discharge Instructions Education Materials: Anatomy of the Female Urinary Tract, Urinary Tract Infections in Women Print Language: Spanish Stand Alone Forms: [facility] Award Info., Patient Portal Info Letter
[2025-06-21 00:20] LABS: Amorphous Crystals,Urine Present (Absent); Bilirubin,Urine Negative (Negative); Blood,Urine 3+ (Negative); Clarity,Urine Turbid (Clear/Hazy); Color,Urine Drk-Yellow (Lt Yel-Yel); Culture Indicated,Urine Contaminated; Glucose, Urine Negative (Negative); Ketones,Urine Negative (Negative); Leukocyte Esterase,Urine Positive (Negative); Nitrite,Urine Negative (Negative); PH,Urine 5.5 (5.0-7.0); Protein,Urine 2+ (Neg - Trace); RBC,Urine 1287 /hpf (0-3); Specific Gravity,Urine 1.032 (1.001-1.035); Squamous Epithelial Cell,Urine 72 /hpf (0-5); Urobilinogen,Urine Negative mg/dL (0.0-1.0); WBC,Urine 983 /hpf (0-5)
[2025-06-21] MEDS: ACETAMINOPHEN 325 MG TABLET 650 MG PO (00:42)
[2025-06-21] MEDS: NITROFURANTOIN MACRO 100 MG CAPSULE PO (02:15)
[2025-06-21] MEDS: PHENAZOPYRIDINE HCL 100 MG TABLET PO (02:15)
[2025-06-21 02:22] VITALS: BP 163/70; PULSE 86; RESP 19; TEMP 36.6; O2SAT 96
== END 2025-06-21 02:35 | disposition home or self-care (01) ==
PROVIDERS: Emergency Provider Emergency Medicine; PCP Family Medicine
DX: N39.0 Urinary tract infection, site not specified (principal); I10 Essential (primary) hypertension; E11.9 Type 2 diabetes mellitus without complications; I48.91 Unspecified atrial fibrillation; E03.9 Hypothyroidism, unspecified; K58.9 Irritable bowel syndrome, unspecified; Z87.11 Personal history of peptic ulcer disease
CPT/HCPCS: 81001; 99282; A9270

== ENCOUNTER 2025-07-10 02:45 | Emergency (ER) | payer MEDICARE, BC, SELFPAY ==
[2025-07-10 02:45] VITALS: BMI 31.2
[2025-07-10 02:54] VITALS: BP 167/83; PULSE 83; RESP 19; TEMP 36.5; O2SAT 95
--- NOTE | 2025-07-10 03:03 | XR_ITS ---
Examination: CT abdomen and pelvis without contrast. Coronal 3-D reconstructions. Sagittal 2-D reconstructions. Date and time of exam: July 10, 2025, 0325 hours INDICATIONS: Abdominal pain beginning last night CTDI: vol (mGy): 9.40 DLP: (mGycm): 486 Technique: Axial images of the abdomen have been obtained, 3 mm slice thickness Intravenous contrast material has not been administered. Low dose protocols were performed. One or more of the following dose reduction techniques were used; automated exposure control, adjustment of the mA and/or KV according to patient size, use of iterative reconstruction technique. Findings: Minor atelectasis at the lung bases No focal liver or splenic lesions Suspicious for gallbladder wall thickening No pancreatic edema Normal adrenal glands Mild renal scar formation Bilateral renal cysts, the largest 15 mm posterior right kidney Aorta normal size No bowel obstruction No diverticulitis, colonic diverticulosis is present Detail in the pelvis is reduced secondary to the patient's hip arthroplasty Contracted urinary bladder IMPRESSION: Recommend hepato-biliary sonography follow-up to exclude gallbladder wall thickening
--- NOTE | 2025-07-10 03:03 | PD.EDRME ---
Rapid Medical Screening Exam RME Arrival date/time: 07/10/25 02:45 This is a case of 79-year-old female who came in in the emergency room due to abdominal pain nausea vomiting for 3 days patient have history of irritable bowel syndrome Chief Complaint: Abdominal Pain Vital signs: Vital Signs Temperature 97.7 F 07/10/25 02:54 Pulse Rate 83 07/10/25 02:54 Respiratory Rate 19 07/10/25 02:54 Blood Pressure 167/83 H 07/10/25 02:54 Pulse Oximetry (%) 95 07/10/25 02:54 Oxygen Delivery Method Room Air 07/10/25 02:54 Exam: Abdominal exam benign nonsurgical no guarding no rebound no rigidity positive tenderness at the epigastric area and periumbilical area no CVA tenderness Clinical Impression: Abdominal pain
[2025-07-10 03:30] LABS: Collection Type, Urine Clean Catch; WBC,Urine 0 /hpf (0-5)
[2025-07-10 03:48] LABS: Bilirubin,Urine Negative (Negative); Blood,Urine Negative (Negative); Clarity,Urine Clear (Clear/Hazy); Color,Urine Yellow (Lt Yel-Yel); Glucose, Urine Negative (Negative); Ketones,Urine Negative (Negative); Leukocyte Esterase,Urine Negative (Negative); Nitrite,Urine Negative (Negative); PH,Urine 5.5 (5.0-7.0); Protein,Urine Negative (Neg - Trace); RBC,Urine 4 /hpf (0-3); Specific Gravity,Urine 1.016 (1.001-1.035); Squamous Epithelial Cell,Urine 1 /hpf (0-5); Urobilinogen,Urine Negative mg/dL (0.0-1.0)
[2025-07-10 04:00] LABS: Basophils # (Auto) 0.0 Thou/mm3 (0.0-0.2); Basophils % (Auto) 1 % (0-2.5); Eosinophils # (Auto) 0.1 Thou/mm3 (0.0-0.5); Eosinophils % (Auto) 1 % (0-10); Hematocrit 32.1 % (36.0-46.0); Hemoglobin 9.9 g/dL (12.0-16.0); Immature Granulocytes Auto 0.02 Thou/mm3 (0.00-0.00); Lymphocytes # (Auto) 2.4 Thou/mm3 (1.0-4.8); Lymphocytes % (Auto) 30 % (10-50); Mean Corpuscular HGB Conc 30.8 g/dl (31.0-37.0); Mean Corpuscular Hemoglobin 26.6 pg (25.0-35.0); Mean Corpuscular Volume 86 fL (80-100); Monocytes # (Auto) 0.7 Thou/mm3 (0.0-0.8); Monocytes % (Auto) 9 % (0-12); Neutrophils # (Auto) 4.5 Thou/mm3 (1.8-7.7); Neutrophils % (Auto) 58 % (37-80); Nucleated Red Blood Cell # 0.00 Thou/mm3 (0.00-0.00); Nucleated Red Blood Cell % 0 /100 WBC (0); Platelet Count 346 Thou/mm3 (140-440); RDW Standard Deviation 49.6 fL (36.4-46.3); Red Blood Count 3.72 Miln/mm3 (4.00-5.20); White Blood Count 7.7 Thou/mm3 (3.6-11.0)
[2025-07-10 04:27] LABS: Alanine Aminotransferase 10 U/L (10-49); Albumin, Serum 4.9 gm/dL (3.4-4.8); Albumin/Globulin Ratio 1.7 (1.2-2.2); Alkaline Phosphatase 76 U/L (46-116); Anion Gap 12 (7-16); Aspartate Amino Transferase 16 U/L (0-34); BUN/Creatinine Ratio 17 Ratio (12-20); Bilirubin,Total < 0.2 mg/dL (0.3-1.2); Blood Urea Nitrogen 17 mg/dL (9-23); Calcium 9.6 mg/dL (8.3-10.6); Calcium (Corrected) 9.6 mg/dL (8.5-10.1); Carbon Dioxide 25.3 mMol/L (20.0-31.0); Chloride 103 mMol/L (98-107); Creatinine (Component) 1.0 mg/dL (0.6-1.3); Estimated Creatinine Clearance 41.2 mL/min (>60); Globulin 2.9 gm/dL (2.3-3.5); Glucose 137 mg/dL (74-106); Lipase 36 U/L (12-53); Osmolality,Calculated 282 (275-295); Potassium 4.1 mMol/L (3.4-5.1); Sodium 140 mMol/L (136-145); Total Protein 7.8 gm/dL (5.7-8.2); eGFR 58 See Note
--- NOTE | 2025-07-10 04:54 | PRELIM_ITS ---
CT scan of the abdomen and pelvis without intravenous contrast (axial sections with sagittal and coronal reformats) July 10, 2025 0325 hours Clinical History: ABD PAIN Comparison: Reference is made to the prior report dated April 17, 2024. Findings: Bibasilar subsegmental atelectasis noted. There may be gallbladder wall thickening. Bilateral renal cysts are suggested, the largest measuring 1.5 x 1.5 cm in the right kidney. The liver, pancreas, spleen and adrenals are unremarkable on this noncontrast study. No evidence of bowel obstruction. The appendix is not definitively visualized; however, there is no evidence of inflammatory process in the right lower quadrant to suggest appendicitis. There are multiple colonic diverticula without evidence of diverticulitis. There is no mesenteric or retroperitoneal adenopathy. The evaluation pf the pelvis is limited due to the streak artifacts from right hip implant. The urinary bladder is incompletely distended at the time of the examination. The uterus is not visualized and may be surgically absent. There is no free fluid or free air. The aorta and its branches demonstrate atheromatous calcification without evidence of aneurysm. Degenerative and postoperative changes are identified in the spine. There is mild grade 1 degenerative anterolisthesis of L4 and L5. Impression: Possible gallbladder wall thickening. Recommend correlation with gallbladder ultrasound. Moderate constipation. Other findings as described above. Report Electronically Signed By: Pradeep Crocker 07/10/2025 4:53:21 AM [EST]
== END 2025-07-10 04:47 | disposition left against medical advice (07) ==
PROVIDERS: Nurse Practitioner Family; Emergency Provider Emergency Medicine; PCP Family Medicine
DX: R10.9 Unspecified abdominal pain (principal); Z53.29 Procedure and treatment not carried out because of patient's decision for other reasons
CPT/HCPCS: 36415; 74176; 80053; 81001; 83690; 85025; 99283

== ENCOUNTER 2025-07-10 10:32 | Emergency (ER) | payer MEDICARE, BC, SELFPAY ==
[2025-07-10 10:32] VITALS: BMI 31.2
[2025-07-10 10:46] VITALS: BP 179/81; PULSE 94; RESP 18; TEMP 36.6; O2SAT 95
--- NOTE | 2025-07-10 11:05 | PD.EDRME ---
Rapid Medical Screening Exam E Arrival date/time: 07/10/25 10:32 79-year-old female with a history of diverticulitis, diabetes, hypertension presents to the emergency room with a chief complaint of right upper quadrant abdominal tenderness x 2 days. Patient states she was seen here overnight but returned due to increasing pain I have greeted and performed a focused initial assessment of this patient. A comprehensive ED assessment and evaluation of the patient, analysis of all test results, and completion of the medical decision making process will be conducted by additional ED providers. Chief Complaint: Abdominal Pain Time Seen by Provider: 07/10/25 10:54 Vital signs: Vital Signs Temperature 97.9 F 07/10/25 10:46 Pulse Rate 94 07/10/25 10:46 Respiratory Rate 18 07/10/25 10:46 Blood Pressure 179/81 H 07/10/25 10:46 Pulse Oximetry (%) 95 07/10/25 10:46 Oxygen Delivery Method Room Air 07/10/25 10:46 Vital signs reviewed by provider: Yes Exam: Right upper quadrant abdominal tenderness with palpation Clear bilateral lung sounds Clinical Impression: Cholelithiasis/cholecystitis/obstruction and CBD
[2025-07-10] MEDS: ONDANSETRON ODT 4 MG TABRAP PO (11:09)
[2025-07-10] MEDS: HYDROcodone/APAP 5/325 TABLET 1 TAB PO (11:10)
[2025-07-10 11:33] LABS: Collection Type, Urine Clean Catch
[2025-07-10 11:59] LABS: Bacteria,Urine Rare; Bilirubin,Urine Negative (Negative); Blood,Urine Negative (Negative); Clarity,Urine Clear (Clear/Hazy); Color,Urine Lt-Yellow (Lt Yel-Yel); Glucose, Urine Negative (Negative); Ketones,Urine Negative (Negative); Leukocyte Esterase,Urine Negative (Negative); Nitrite,Urine Negative (Negative); PH,Urine 6.0 (5.0-7.0); Protein,Urine Negative (Neg - Trace); RBC,Urine < 1 /hpf (0-3); Specific Gravity,Urine 1.008 (1.001-1.035); Squamous Epithelial Cell,Urine 2 /hpf (0-5); Urobilinogen,Urine Negative mg/dL (0.0-1.0); WBC,Urine < 1 /hpf (0-5)
[2025-07-10 12:22] LABS: Alanine Aminotransferase 14 U/L (10-49); Albumin, Serum 5.4 gm/dL (3.4-4.8); Albumin/Globulin Ratio 1.5 (1.2-2.2); Alkaline Phosphatase 85 U/L (46-116); Anion Gap 13 (7-16); Aspartate Amino Transferase 30 U/L (0-34); BUN/Creatinine Ratio 11 Ratio (12-20); Bilirubin,Total 0.2 mg/dL (0.3-1.2); Blood Urea Nitrogen 11 mg/dL (9-23); Calcium 10.1 mg/dL (8.3-10.6); Calcium (Corrected) 10.1 mg/dL (8.5-10.1); Carbon Dioxide 23.5 mMol/L (20.0-31.0); Chloride 103 mMol/L (98-107); Creatinine (Component) 1.0 mg/dL (0.6-1.3); Estimated Creatinine Clearance 41.2 mL/min (>60); Globulin 3.5 gm/dL (2.3-3.5); Glucose 153 mg/dL (74-106); Lipase 33 U/L (12-53); Osmolality,Calculated 279 (275-295); Potassium 4.4 mMol/L (3.4-5.1); Sodium 139 mMol/L (136-145); Total Protein 8.9 gm/dL (5.7-8.2); eGFR 58 See Note
[2025-07-10 12:25] LABS: Basophils # (Auto) 0.1 Thou/mm3 (0.0-0.2); Basophils % (Auto) 1 % (0-2.5); Eosinophils # (Auto) 0.1 Thou/mm3 (0.0-0.5); Eosinophils % (Auto) 1 % (0-10); Hematocrit 36.6 % (36.0-46.0); Hemoglobin 11.8 g/dL (12.0-16.0); Immature Granulocytes Auto 0.02 Thou/mm3 (0.00-0.00); Lymphocytes # (Auto) 1.6 Thou/mm3 (1.0-4.8); Lymphocytes % (Auto) 24 % (10-50); Mean Corpuscular HGB Conc 32.2 g/dl (31.0-37.0); Mean Corpuscular Hemoglobin 26.9 pg (25.0-35.0); Mean Corpuscular Volume 84 fL (80-100); Monocytes # (Auto) 0.5 Thou/mm3 (0.0-0.8); Monocytes % (Auto) 7 % (0-12); Neutrophils # (Auto) 4.3 Thou/mm3 (1.8-7.7); Neutrophils % (Auto) 67 % (37-80); Nucleated Red Blood Cell # 0.00 Thou/mm3 (0.00-0.00); Nucleated Red Blood Cell % 0 /100 WBC (0); Platelet Count 244 Thou/mm3 (140-440); RDW Standard Deviation 47.2 fL (36.4-46.3); Red Blood Count 4.38 Miln/mm3 (4.00-5.20); White Blood Count 6.5 Thou/mm3 (3.6-11.0)
[2025-07-10 12:37] VITALS: BP 197/71; PULSE 79; RESP 20; TEMP 36.4; O2SAT 96
--- NOTE | 2025-07-10 13:28 | EDNOTE_ITS ---
<Statement entered by Jenniffer Santana MD - 07/22/25 06:31> As co-signing physician, I was present and available for consult prn. I concur with the plan and care as documented by the midlevel provider. ED General RME/HPI General Chief complaint: Abdominal Pain Stated complaint: abdominal pain Time Seen by Provider: 07/10/25 10:54 Arrival date/time: 07/10/25 10:32 CC: Abdominal pain HPI patient sent by her PCP for an ultrasound because of a CT today that showed there may be gallbladder wall thickening. Patient is not in any acute distress. Note the patient has had 51 visits to this emergency room since August 2024 for essentially the same complaint of abdominal pain. RME / HPI RME / HPI narrative: 07/10/25 10:32 79-year-old female with a history of diverticulitis, diabetes, hypertension presents to the emergency room with a chief complaint of right upper quadrant abdominal tenderness x 2 days. Patient states she was seen here overnight but returned due to increasing pain I have greeted and performed a focused initial assessment of this patient. A comprehensive ED assessment and evaluation of the patient, analysis of all test results, and completion of the medical decision making process will be conducted by additional ED providers. Exam: Right upper quadrant abdominal tenderness with palpation Clear bilateral lung sounds Impression: Cholelithiasis/cholecystitis/obstruction and CBD Related Data Home Medications ?Medication ?Instructions ?Recorded ?Confirmed acetaminophen 500 mg tablet 500 mg PO PRN PRN Pain 02/05/25 cholecalciferol (vitamin D3) 25 25 mcg PO 1XD 06/27/23 02/05/25 mcg (1,000 unit) tablet (Vitamin D3) levothyroxine 50 mcg tablet 50 mcg PO DAILY 06/27/23 0 02/05/25 metformin 500 mg tablet 500 mg PO DAILY 06/27/23 alprazolam 0.5 mg tablet 0.5 mg PO BID PRN Anxiety 02/05/25 benazepril 20 mg tablet 20 mg PO QDAY 10/28/2302/05 loperamide 2 mg capsule 2 mg PO QDAY 10/28/23 pantoprazole 40 mg tablet,delayed 40 mg PO BID 4 02/05/25 release apixaban 5 mg tablet (Eliquis) 5 mg PO QDAY 06/11/24 0 02/05/25 ascorbic acid (vitamin C) 500 mg 500 mg PO QDAY 02/05/25 tablet (Vitamin C) Previous Rx's ?Medication ?Instructions ?Recorded lidocaine HCl 2 % mucosal solution 5 ml PO TIDPC PRN d yspepsia #300 mL 07/02/24 (Lidocaine Viscous) magnesium hydroxide 2,400 mg/10 mL 30 ml PO QDAY PRN c onstipation #60 01/22/25 oral suspension (Milk Of Magnesia mL Concentrated) sennosides 8.6 mg-docusate sodium 2 tab-cap (2 x 8.6-5 0 mg) PO QDAY 01/22/25 50 mg tablet (Senokot-S) PRN constipation #20 tabs ferrous sulfate 325 mg (65 mg 325 mg PO QOD #30 tabs 0 02/14/25 iron) tablet,delayed release ondansetron 4 mg disintegrating 4 mg PO Q8H PRN nausea and 02/26/25 tablet vomiting #10 tabs polyethylene glycol 3350 17 4 g PO QDAY #510 grams gram/dose oral powder (Miralax) baclofen 5 mg tablet 5 mg PO BID PRN muscle spasm #10 06/03/25 tabs ondansetron 4 mg disintegrating 4 mg PO Q8H PRN nausea and 06/11/25 tablet vomiting #14 tabs hydrocodone 5 mg-acetaminophen 325 1 tab PO Q8H PRN pa in #20 tabs 06/17/25 mg tablet promethazine 25 mg tablet 12.5 mg (1/2 x 25 mg) PO TID PRN 06/17/25 nausea #14 tabs Allergies Allergy/AdvReac Type Severity Reaction Status Date / Time amoxicillin (From Augmentin) Allergy Severe Hives Verified 07/10/25 10:35 aspirin Allergy Severe Abdominal Verified 07/10/25 10:35 Pain ciprofloxacin (From Cipro) Allergy Severe Gastrointestinal Verified 07/10/25 10:35 Upset clavulanic acid (From Allergy Severe Hives Verified 07/10/25 10:35 Augmentin) codeine Allergy Severe Nausea Verified 07/10/25 10:35 fluconazole Allergy Severe Rash Verified 07/10/25 10:35 gabapentin Allergy Severe Abdominal Verified 07/10/25 10:35 Pain ketorolac (From Toradol) Allergy Severe Abdominal Verified 07/10/25 10:35 Pain nalbuphine Allergy Severe Abdominal Verified 07/10/25 10:35 Pain Sulfa (Sulfonamide Allergy Severe Hives Verified 07/10/25 10:35 Antibiotics) tizanidine Allergy Severe Rash Verified 07/10/25 10:35 tramadol Allergy Severe Rash Verified 07/10/25 10:35 dicyclomine (From Bentyl) AdvReac Severe Abdominal Verified 07/10/25 10:35 Pain Review of Systems Review of Systems Narrative Review of Systems: GEN: No fever, no chills, no weight loss EYES: No discharge, no visual changes, no pain HEENT: No ear pain, no congestion, no sore throat PULM: No shortness of breath, no cough, no congestion CV: No chest pain, no dyspnea on exertion, no palpitations GI: No nausea, no vomiting, no diarrhea, + pain, no constipation : No frequency, no urgency, no dysuria MUSC/SKEL: No joint pain, no back pain SKIN: No rash PSYCH: No hallucinations, no depression HEME/LYMPH: No easy bleeding or bruising tendencies NEURO: No weakness, no headache Past Medical History Past Medical History NEUROLOGIC: Negative Neurological Disorders or Seizures CARDIAC: Positive Cardiac Disorders, Cardiac Arrhythmia, Atrial Fibrillation, Hypercholesterolemia and Hypertension; Negative Congestive Heart Failure RESPIRATORY: Positive Pneumonia and Sleep Apnea; Negative Chronic Obstructive Pulmonary Disease (COPD) or Asthma GASTROINTESTINAL: Positive Gastrointestinal Disorders, Gastrointestinal Bleed, Colitis, Ulcerative Colitis, Diverticulitis, Diverticulosis, Ulcer, Irritable Bowel, Obstructive Bowel, Hemorrhoids and Obesity GENITOURINARY: Positive Kidney Stones; Negative Genitourinary Disorders or Renal Disease REPRODUCTIVE: Positive Previous Pregnancies MUSCULOSKELETAL: Positive Musculoskeletal Disorders and Arthritis ENT: Positive Cataracts and Ear Infection ENDOCRINE: Positive Diabetes Mellitus Type 2 and Hypothyroidism; Negative Diabetes Mellitus Type 1 HEMATOLOGIC: Negative Blood Disorders or Sickle Cell Disease PSYCHO/SOCIAL: Positive Anxiety OTHER HISTORY: Positive Falls, Blood Transfusions, Chicken Pox, Mumps and Clostridium Difficile; Negative Blood Transfusion Reaction, Anesthesia Reactions or Cancer Family History FAMILY HISTORY: Positive Family Cardiac Disorders; Negative Family Respiratory Disorders Surgical History SURGICAL: Positive Cardiac Surgery, Endocrine Surgery, Thyroidectomy, Abdominal Surgery, Joint Replacement, Hysterectomy and Section Social History SMOKING STATUS: Never smoker SUBSTANCE USE: does not use ED Exam Narrative Physical exam: [General: Obese not in in any acute distress Head normocephalic HEENT: Within acceptable limits Neck is supple nontender Chest equal chest rise nontender to palpation Respiratory: Clear to auscultation no wheezes crackles or rubs CV: Rate rhythm is regular no murmurs rubs or clicks Abdomen is distended secondary to body habitus soft nontender no masses positive bowel sounds all 4 quadrants Back: No CVA tenderness no spinous process tenderness from cervical spine thoracic and lumbar spine Skin: Intact no petechiae rash induration ulceration or crepitus Extremities: Moving all extremity against resistance cap refill less than 2 seconds neurosensory intact Neuro: Awake alert oriented x3 Glascow coma 15 no focal deficits] Course Quality Measures none Orders Category Date Time Status US gall bladder Stat Exams 07/10/25 13:47 Completed CBC Stat Lab 07/10/25 11:38 Completed CMP [Comprehensive Metabolic Panel] Stat Lab 07/10/25 11:38 Completed Lipase Stat Lab 07/10/25 11:38 Completed UA [Urinalysis] Stat Lab 07/10/25 11:30 Completed Urine Culture Stat Lab 07/10/25 11:04 Stop Req HYDROcodone*/APAP 5/325 [Ranger 5/325] Med 07/10/25 11:04 Discontinued 1 tab PO X1 ONE Ondansetron Odt [Zofran Odt] Med 07/10/25 11:04 Discontinued 4 mg PO X1 ONE Vital Signs Vital signs: Vital Signs Temperature 97.9 F 07/10/25 10:46 Pulse Rate 94 07/10/25 10:46 Respiratory Rate 18 07/10/25 10:46 Blood Pressure 179/81 H 07/10/25 10:46 Pulse Oximetry (%) 95 07/10/25 10:46 Oxygen Delivery Method Room Air 07/10/25 10:46 Discharge Plan Plan Patient Disposition: HOME (Self Care) Patient condition on transfer: Stable Prescriptions/Referrals Prescriptions/Med Rec: No Action metformin 500 mg Tablet 500 mg PO DAILY acetaminophen 500 mg Tablet 500 mg PO PRN MDD 4 PRN (Reason: Pain) levothyroxine 50 mcg Tablet 50 mcg PO DAILY cholecalciferol (vitamin D3) [Vitamin D3] 25 mcg (1,000 unit) Tablet 25 mcg PO 1XD loperamide 2 mg capsule 2 mg PO QDAY alprazolam 0.5 mg tablet 0.5 mg PO BID PRN (Reason: Anxiety) Patient Comments: TAKE 1 TABLET BY MOUTH THREE TIMES DAILY NEEDED FOR ANXIETY pantoprazole 40 mg tablet,delayed release (DR/EC) 40 mg PO BID Patient Comments: TAKE 1 TABLET BY MOUTH DAILY benazepril 20 mg tablet 20 mg PO QDAY lidocaine HCl [Lidocaine Viscous] 2 % solution 5 ml PO TIDPC MDD 15 mL PRN (Reason: dyspepsia) Qty: 300 0RF ondansetron 4 mg tablet,disintegrating 4 mg PO Q8H PRN (Reason: nausea and vomiting) Qty: 10 0RF baclofen 5 mg tablet 5 mg PO BID PRN (Reason: muscle spasm) Qty: 10 0RF Eliquis 5 mg Tablet 5 mg PO QDAY sennosides-docusate sodium [Senokot-S] 8.6-50 mg tablet 2 tab-cap PO QDAY PRN (Reason: constipation) Qty: 20 0RF magnesium hydroxide [Milk Of Magnesia Concentrated] 2,400 mg/10 mL suspension 30 ml PO QDAY PRN (Reason: constipation) Qty: 60 0RF ascorbic acid (vitamin C) [Vitamin C] 500 mg tablet 500 mg PO QDAY ferrous sulfate 325 mg (65 mg iron) Tablet,Delayed Release (Dr/Ec) 325 mg PO QOD Qty: 30 0RF polyethylene glycol 3350 [Miralax] 17 gram/dose powder 4 g PO QDAY Qty: 510 0RF ondansetron 4 mg tablet,disintegrating 4 mg PO Q8H PRN (Reason: nausea and vomiting) Qty: 14 0RF promethazine 25 mg tablet 12.5 mg PO TID PRN (Reason: nausea) Qty: 14 0RF hydrocodone-acetaminophen 5-325 mg tablet 1 tab PO Q8H MDD 3 tab PRN (Reason: pain) Qty: 20 0RF Referrals: Tyrone Langford MD [Primary Care Provider, Family Practice] - In 1 week Problem List Clinical Impression: Chronic abdominal pain Patient/Caregiver Discharge Instructions Education Materials: Abdominal Pain Additional Instructions: Take Tylenol for abdominal pain Print Language: Indonesian Stand Alone Forms: [employer] Award Info., Patient Portal Info Letter PA/MANAGER OF [employer] Supervising Physician PA/MANAGER [employer] Supervising Physician: Lucius Jimenes ENP [facility] Clinical Information Provided by: patient Medical Records reviewed [facility] Meds/Rx considered, not ordered None Labs/Rad/Tests considered, not ordered None Chronic Illness/Social Conditions Explain: Chronic pain EKG EKG not done Labs Labs: interpreted by me Lab(s) Interpretation(s): CBC shows no acute leukocytosis anemia thrombocytopenia CMP shows no significant electrolyte imbalances renal impairment transaminitis or T. bili elevation Urine is negative for UTI. Imaging Imaging interpretation: none Medication Administration(s) none Medication Administration History Discontinued Medications Hydrocodone Bitart/Acetaminophen (Hydrocodone/Apap 5/325 Tablet) 1 tab PO X1 ONE Stop: 07/10/25 11:05 Last Admin: 07/10/25 11:10 Dose: 1 tab Documented By: SARAH Ondansetron HCl (Ondansetron Odt 4 Mg Tabrap) 4 mg PO X1 ONE; Protocol Stop: 07/10/25 11:05 Last Admin: 07/10/25 11:09 Dose: 4 mg Documented By: SARAH None Diagnosis Differential Diagnosis ED Complaint MDM: Chronic pain syndrome electrolyte imbalances cholelithiasis
--- NOTE | 2025-07-10 13:47 | XR_ITS ---
Examination: Abdomen sonogram, Limited Date and time of exam: July 10, 2025, 1435 hours INDICATIONS: Abdominal pain beginning 2 weeks ago Technique: Real-time bowling scale transabdominal sonographic images of the upper abdomen obtained. Findings: Negative for gallstones Gallbladder wall 0.3 cm no edema Common bile duct 0.5 cm Pancreatic head 3.0 cm Liver 14.0 cm no liver lesions Normal hepatopetal portal venous flow Patent IVC IMPRESSION: Normal gallbladder
== END 2025-07-10 16:16 | disposition home or self-care (01) ==
PROVIDERS: Nurse Practitioner Family; Emergency Provider Emergency Medicine; PCP Family Medicine
DX: R10.11 Right upper quadrant pain (principal); G89.29 Other chronic pain; R11.2 Nausea with vomiting, unspecified
CPT/HCPCS: 36415; 76705; 80053; 81001; 83690; 85025; 87086; 99283; Q0162; A9270

== ENCOUNTER 2025-07-15 05:51 | Emergency (ER) | payer MEDICARE, BC, SELFPAY ==
[2025-07-15 05:53] VITALS: BMI 31.2
[2025-07-15 06:00] VITALS: BP 177/76; PULSE 83; RESP 18; TEMP 36.7; O2SAT 96
--- NOTE | 2025-07-15 06:17 | PD.EDABDPN ---
ED Abdominal Pain RME/HPI General Chief Complaint: Abdominal Pain Stated complaint: SHARP PAIN, NAUSEA Time seen by provider: 07/15/25 06:01 Arrival date/time: 07/15/25 05:51 Limitations: no limitations RME / HPI Location: RUQ, epigastric and R flank Severity: moderate Quality: cramping and stabbing Radiation: RUQ and R flank Relieving factors: vomiting RME / HPI narrative: 79-year-old female with a history of diverticulitis, diabetes, hypertension presents to the emergency room with a chief complaint of right upper quadrant abdominal tenderness x that restarted. Patient states she was seen here 07/10/25, but returned due to increasing pain. 07/[address] abdomen pelvis which was normal and ultrasound which was also normal. Being followed by general surgeon Dr. Ojeda. States taking GI cocktails at home [id number] last time was last night. Reports was also told she has a duodenal ulcer. No fever no diarrhea. Related Data Home Medications ?Medication ?Instructions ?Recorded ?Confirmed acetaminophen 500 mg tablet 500 mg PO PRN PRN Pain 06/27/23 02/05/25 cholecalciferol (vitamin D3) 25 25 mcg PO 1XD 06/27/23 02/05/25 mcg (1,000 unit) tablet (Vitamin D3) levothyroxine 50 mcg tablet 50 mcg PO DAILY 06/27/23 02/05/25 metformin 500 mg tablet 500 mg PO DAILY 06/27/23 02/05/25 alprazolam 0.5 mg tablet 0.5 mg PO BID PRN Anxiety 10/28/23 02/05/25 benazepril 20 mg tablet 20 mg PO QDAY 10/28/23 02/05/25 loperamide 2 mg capsule 2 mg PO QDAY 10/28/23 02/06/25 pantoprazole 40 mg tablet,delayed 40 mg PO BID 10/28/23 02/05/25 release apixaban 5 mg tablet (Eliquis) 5 mg PO QDAY 06/11/24 02/05/25 ascorbic acid (vitamin C) 500 mg 500 mg PO QDAY 02/05/25 02/05/25 tablet (Vitamin C) Previous Rx's ?Medication ?Instructions ?Recorded lidocaine HCl 2 % mucosal solution 5 ml PO TIDPC PRN dyspepsia #300 mL 07/02/24 (Lidocaine Viscous) magnesium hydroxide 2,400 mg/10 mL 30 ml PO QDAY PRN constipation #60 01/22/25 oral suspension (Milk Of Magnesia mL Concentrated) sennosides 8.6 mg-docusate sodium 2 tab-cap (2 x 8.6-50 mg) PO QDAY 01/22/25 50 mg tablet (Senokot-S) PRN constipation #20 tabs ferrous sulfate 325 mg (65 mg 325 mg PO QOD #30 tabs 02/14/25 iron) tablet,delayed release ondansetron 4 mg disintegrating 4 mg PO Q8H PRN nausea and 02/26/25 tablet vomiting #10 tabs polyethylene glycol 3350 17 4 g PO QDAY #510 grams 02/26/25 gram/dose oral powder (Miralax) baclofen 5 mg tablet 5 mg PO BID PRN muscle spasm #10 06/03/25 tabs ondansetron 4 mg disintegrating 4 mg PO Q8H PRN nausea and 06/11/25 tablet vomiting #14 tabs hydrocodone 5 mg-acetaminophen 325 1 tab PO Q8H PRN pain #20 tabs 06/17/25 mg tablet promethazine 25 mg tablet 12.5 mg (1/2 x 25 mg) PO TID PRN 06/17/25 nausea #14 tabs Allergies Allergy/AdvReac Type Severity Reaction Status Date / Time amoxicillin (From Augmentin) Allergy Severe Hives Verified 07/15/25 05:52 aspirin Allergy Severe Abdominal Verified 07/15/25 05:52 Pain ciprofloxacin (From Cipro) Allergy Severe Gastrointestinal Verified 07/15/25 05:52 Upset clavulanic acid (From Allergy Severe Hives Verified 07/15/25 05:52 Augmentin) codeine Allergy Severe Nausea Verified 07/15/25 05:52 fluconazole Allergy Severe Rash Verified 07/15/25 05:52 gabapentin Allergy Severe Abdominal Verified 07/15/25 05:52 Pain ketorolac (From Toradol) Allergy Severe Abdominal Verified 07/15/25 05:52 Pain nalbuphine Allergy Severe Abdominal Verified 07/15/25 05:52 Pain Sulfa (Sulfonamide Allergy Severe Hives Verified 07/15/25 05:52 Antibiotics) tizanidine Allergy Severe Rash Verified 07/15/25 05:52 tramadol Allergy Severe Rash Verified 07/15/25 05:52 dicyclomine (From Bentyl) AdvReac Severe Abdominal Verified 07/15/25 05:52 Pain Review of Systems Review of Systems Systems Reviewed: All systems reviewed, normal except as documented Constitutional Constitutional: Denies fever(s) Gastrointestinal Gastrointestinal: Reports as per HPI ED Exam General Limitations: Present no limitations General appearance: Present alert and in no apparent distress Eye Eye exam: Present normal appearance, PERRL and EOMI Respiratory Respiratory exam: Present normal lung sounds bilaterally Cardiovascular Cardiovascular exam: Present regular rate, normal rhythm and normal heart sounds Abdominal Exam Abdominal exam: Present soft, normal bowel sounds and other (Right upper quadrant and right CVAT) Extremities Exam Extremities exam: Present normal inspection and full ROM Back Exam Back exam: Present normal inspection and full ROM Psychiatric Psychiatric exam: Present normal affect and normal mood Skin Skin exam: Present warm, dry, intact and normal color Course Quality Measures none Orders Category Date Time Status CBC Stat Lab 07/15/25 06:13 Ordered CMP [Comprehensive Metabolic Panel] Stat Lab 07/15/25 06:13 Ordered Lipase Stat Lab 07/15/25 06:13 Ordered UA, C/S IF [Urinalysis, C/S if Indicated] Stat Lab 07/15/25 06:13 Ordered Famotidine [Pepcid] Med 07/15/25 06:13 Discontinued 40 mg PO X1 ONE HYDROcodone*/APAP 5/325 [Ennice 5/325] Med 07/15/25 06:13 Discontinued 1 tab PO X1 ONE Vital Signs Vital signs: Vital Signs Temperature 98.1 F 07/15/25 06:00 Pulse Rate 83 07/15/25 06:00 Respiratory Rate 18 07/15/25 06:00 Blood Pressure 177/76 H 07/15/25 06:00 Pulse Oximetry (%) 96 07/15/25 06:00 Oxygen Delivery Method Room Air 07/15/25 06:00 Abdominal Pain MDM Patient data External records reviewed:: [facility] previous records Clinical information provided by:: patient Social determinants that could affect healthcare access:: other (specify) (Elderly patient, with no access to PCP on the weekend) Patient has the following chronic illnesses:: Duodenal ulcer How is presenting disease/condition affected by chronic disease/condition?: exacerbated by Evaluation data The following diagnostics were reviewed and interpreted by me:: lab results Lab and/or radiology exams considered but not ordered:: CT abdomen pelvis and ultrasound were considered however had same imaging less than 5 days ago unlikely to change course of treatment today Interpretation Summary: CBC CMP lipase UA not collected due to pt leaving after meds Medications / Prescriptions Medications or Prescriptions considered but not ordered:: All meds considered were given Medication administrations:: Medication Administration History Discontinued Medications Hydrocodone Bitart/Acetaminophen (Hydrocodone/Apap 5/325 Tablet) 1 tab PO X1 ONE Stop: 07/15/25 06:14 Last Admin: 07/15/25 06:31 Dose: 1 tab Documented By: AZRA Famotidine (Famotidine 20 Mg Tablet) 40 mg PO X1 ONE Stop: 07/15/25 06:14 Last Admin: 07/15/25 06:31 Dose: 40 mg Documented By: AZRA See above Consultations Consultation(s) initiated? (list below): No Diagnosis Differential diagnosis abdominal pain: abdominal pain, calculus of kidney, gastroenteritis, pancreatitis and other (GERD, gallstone) Most likely diagnosis given after review of the tests above:: Chronic abdominal pain History of GI ulcer Admission Indicated Admission indicated?: not indicated Admission Request Was there a request for admission?: No Disposition Plan Disposition Plan: Discharge Discharge Attestation Discharge Attestation: The patient and all family members were given an opportunity to ask questions and understood the discharge instructions. Discharge instructions specifically effects, indications for sooner follow up or return to the emergency department, and the expected course of current diagnosis. Patient condition: Stable Discharge Plan Plan Patient Disposition: Elopement Discharge Disposition comment: pt spoke with staff, left during tx due to feeling better with pepcid she stated Prescriptions/Referrals Prescriptions/Med Rec: No Action metformin 500 mg Tablet 500 mg PO DAILY acetaminophen 500 mg Tablet 500 mg PO PRN MDD 4 PRN (Reason: Pain) levothyroxine 50 mcg Tablet 50 mcg PO DAILY cholecalciferol (vitamin D3) [Vitamin D3] 25 mcg (1,000 unit) Tablet 25 mcg PO 1XD loperamide 2 mg capsule 2 mg PO QDAY alprazolam 0.5 mg tablet 0.5 mg PO BID PRN (Reason: Anxiety) Patient Comments: TAKE 1 TABLET BY MOUTH THREE TIMES DAILY NEEDED FOR ANXIETY pantoprazole 40 mg tablet,delayed release (DR/EC) 40 mg PO BID Patient Comments: TAKE 1 TABLET BY MOUTH DAILY benazepril 20 mg tablet 20 mg PO QDAY lidocaine HCl [Lidocaine Viscous] 2 % solution 5 ml PO TIDPC MDD 15 mL PRN (Reason: dyspepsia) Qty: 300 0RF ondansetron 4 mg tablet,disintegrating 4 mg PO Q8H PRN (Reason: nausea and vomiting) Qty: 10 0RF baclofen 5 mg tablet 5 mg PO BID PRN (Reason: muscle spasm) Qty: 10 0RF Eliquis 5 mg Tablet 5 mg PO QDAY sennosides-docusate sodium [Senokot-S] 8.6-50 mg tablet 2 tab-cap PO QDAY PRN (Reason: constipation) Qty: 20 0RF magnesium hydroxide [Milk Of Magnesia Concentrated] 2,400 mg/10 mL suspension 30 ml PO QDAY PRN (Reason: constipation) Qty: 60 0RF ascorbic acid (vitamin C) [Vitamin C] 500 mg tablet 500 mg PO QDAY ferrous sulfate 325 mg (65 mg iron) Tablet,Delayed Release (Dr/Ec) 325 mg PO QOD Qty: 30 0RF polyethylene glycol 3350 [Miralax] 17 gram/dose powder 4 g PO QDAY Qty: 510 0RF ondansetron 4 mg tablet,disintegrating 4 mg PO Q8H PRN (Reason: nausea and vomiting) Qty: 14 0RF promethazine 25 mg tablet 12.5 mg PO TID PRN (Reason: nausea) Qty: 14 0RF hydrocodone-acetaminophen 5-325 mg tablet 1 tab PO Q8H MDD 3 tab PRN (Reason: pain) Qty: 20 0RF Referrals: Tyrone Langford MD [Primary Care Provider, Family Practice] - In 1 week Problem List Clinical Impression: Chronic abdominal pain, Chronic GERD Patient/Caregiver Discharge Instructions Education Materials: GERD Dc Print Language: Mohawk PA/[employer] Supervising Physician PA/[employer] Supervising Physician: Dr. Hernadez
[2025-07-15] MEDS: FAMOTIDINE 20 MG TABLET 40 MG PO (06:31)
[2025-07-15] MEDS: HYDROcodone/APAP 5/325 TABLET 1 TAB PO (06:31)
--- NOTE | 2025-07-15 07:11 | PC.NURSE ---
Pt. states the Pepcid made her feel better and she wants to go home. Pt. walked out of ER.
== END 2025-07-15 07:11 | disposition left against medical advice (07) ==
PROVIDERS: Emergency Provider Emergency Medicine; PCP Family Medicine
DX: K21.9 Gastro-esophageal reflux disease without esophagitis (principal); R10.11 Right upper quadrant pain; R10.13 Epigastric pain; G89.29 Other chronic pain; Z53.29 Procedure and treatment not carried out because of patient's decision for other reasons
CPT/HCPCS: 80053; 81001; 83690; 85025; 99281; A9270

== ENCOUNTER 2025-07-21 01:14 | Emergency (ER) | payer MEDICARE, BC, SELFPAY ==
[2025-07-21 01:15] VITALS: BMI 31.2
--- NOTE | 2025-07-21 01:17 | PD.EDABDPN ---
ED Abdominal Pain RME/HPI General Chief Complaint: Abdominal Pain Stated complaint: ABD PAIN, DIARRHEA Time seen by provider: 07/21/25 01:33 Arrival date/time: 07/21/25 01:14 RME / HPI RME / HPI narrative: See MDM for Dr. Hernadez's HPI documentation. Related Data Home Medications ?Medication ?Instructions ?Recorded ?Confirmed acetaminophen 500 mg tablet 500 mg PO PRN PRN Pain 06/27/23 02/05/25 cholecalciferol (vitamin D3) 25 25 mcg PO 1XD 06/27/23 02/05/25 mcg (1,000 unit) tablet (Vitamin D3) levothyroxine 50 mcg tablet 50 mcg PO DAILY 06/27/23 02/05/25 metformin 500 mg tablet 500 mg PO DAILY 06/27/23 02/05/25 alprazolam 0.5 mg tablet 0.5 mg PO BID PRN Anxiety 10/28/23 02/05/25 benazepril 20 mg tablet 20 mg PO QDAY 10/28/23 02/05/25 loperamide 2 mg capsule 2 mg PO QDAY 10/28/23 02/06/25 pantoprazole 40 mg tablet,delayed 40 mg PO BID 10/28/23 02/05/25 release apixaban 5 mg tablet (Eliquis) 5 mg PO QDAY 06/11/24 02/05/25 ascorbic acid (vitamin C) 500 mg 500 mg PO QDAY 02/05/25 02/05/25 tablet (Vitamin C) Previous Rx's ?Medication ?Instructions ?Recorded lidocaine HCl 2 % mucosal solution 5 ml PO TIDPC PRN dyspepsia #300 mL 07/02/24 (Lidocaine Viscous) magnesium hydroxide 2,400 mg/10 mL 30 ml PO QDAY PRN constipation #60 01/22/25 oral suspension (Milk Of Magnesia mL Concentrated) sennosides 8.6 mg-docusate sodium 2 tab-cap (2 x 8.6-50 mg) PO QDAY 01/22/25 50 mg tablet (Senokot-S) PRN constipation #20 tabs ferrous sulfate 325 mg (65 mg 325 mg PO QOD #30 tabs 02/14/25 iron) tablet,delayed release ondansetron 4 mg disintegrating 4 mg PO Q8H PRN nausea and 02/26/25 tablet vomiting #10 tabs polyethylene glycol 3350 17 4 g PO QDAY #510 grams 02/26/25 gram/dose oral powder (Miralax) baclofen 5 mg tablet 5 mg PO BID PRN muscle spasm #10 06/03/25 tabs ondansetron 4 mg disintegrating 4 mg PO Q8H PRN nausea and 06/11/25 tablet vomiting #14 tabs hydrocodone 5 mg-acetaminophen 325 1 tab PO Q8H PRN pain #20 tabs 06/17/25 mg tablet promethazine 25 mg tablet 12.5 mg (1/2 x 25 mg) PO TID PRN 06/17/25 nausea #14 tabs famotidine 40 mg tablet 40 mg PO BID #60 tabs 07/21/25 ondansetron 4 mg disintegrating 4 mg PO TID PRN nausea and 07/21/25 tablet vomiting 30 days #10 tabs Allergies Allergy/AdvReac Type Severity Reaction Status Date / Time amoxicillin (From Augmentin) Allergy Severe Hives Verified 07/15/25 05:52 aspirin Allergy Severe Abdominal Verified 07/15/25 05:52 Pain ciprofloxacin (From Cipro) Allergy Severe Gastrointestinal Verified 07/15/25 05:52 Upset clavulanic acid (From Allergy Severe Hives Verified 07/15/25 05:52 Augmentin) codeine Allergy Severe Nausea Verified 07/15/25 05:52 fluconazole Allergy Severe Rash Verified 07/15/25 05:52 gabapentin Allergy Severe Abdominal Verified 07/15/25 05:52 Pain ketorolac (From Toradol) Allergy Severe Abdominal Verified 07/15/25 05:52 Pain nalbuphine Allergy Severe Abdominal Verified 07/15/25 05:52 Pain Sulfa (Sulfonamide Allergy Severe Hives Verified 07/15/25 05:52 Antibiotics) tizanidine Allergy Severe Rash Verified 07/15/25 05:52 tramadol Allergy Severe Rash Verified 07/15/25 05:52 dicyclomine (From Bentyl) AdvReac Severe Abdominal Verified 07/15/25 05:52 Pain Review of Systems Review of Systems Systems Reviewed: All systems reviewed, normal except as documented Past Medical History Past Medical History NEUROLOGIC: Negative Neurological Disorders or Seizures CARDIAC: Positive Cardiac Disorders, Cardiac Arrhythmia, Atrial Fibrillation, Hypercholesterolemia and Hypertension; Negative Congestive Heart Failure RESPIRATORY: Positive Pneumonia and Sleep Apnea; Negative Chronic Obstructive Pulmonary Disease (COPD) or Asthma GASTROINTESTINAL: Positive Gastrointestinal Disorders, Gastrointestinal Bleed, Colitis, Ulcerative Colitis, Diverticulitis, Diverticulosis, Ulcer, Irritable Bowel, Obstructive Bowel, Hemorrhoids and Obesity GENITOURINARY: Positive Kidney Stones; Negative Genitourinary Disorders or Renal Disease REPRODUCTIVE: Positive Previous Pregnancies MUSCULOSKELETAL: Positive Musculoskeletal Disorders and Arthritis ENT: Positive Cataracts and Ear Infection ENDOCRINE: Positive Diabetes Mellitus Type 2 and Hypothyroidism; Negative Diabetes Mellitus Type 1 HEMATOLOGIC: Negative Blood Disorders or Sickle Cell Disease PSYCHO/SOCIAL: Positive Anxiety OTHER HISTORY: Positive Falls, Blood Transfusions, Chicken Pox, Mumps and Clostridium Difficile; Negative Blood Transfusion Reaction, Anesthesia Reactions or Cancer Family History FAMILY HISTORY: Positive Family Cardiac Disorders; Negative Family Respiratory Disorders Surgical History SURGICAL: Positive Cardiac Surgery, Endocrine Surgery, Thyroidectomy, Abdominal Surgery, Joint Replacement, Hysterectomy and Section Social History SMOKING STATUS: Never smoker SUBSTANCE USE: does not use ED Exam Narrative Physical exam: See [facility] for Dr. Hernadez's physical exam documentation. Course Quality Measures none Orders Category Date Time Status Saline [Insert IV] NOW Care 07/21/25 01:23 Active Amylase Stat Lab 07/21/25 01:35 Completed Bilirubin,Direct Stat Lab 07/21/25 01:35 Completed CBC Stat Lab 07/21/25 01:35 Completed CMP [Comprehensive Metabolic Panel] Stat Lab 07/21/25 01:35 Completed Lipase Stat Lab 07/21/25 01:35 Completed Magnesium Stat Lab 07/21/25 01:35 Completed Famotidine Inj [Pepcid Inj] Med 07/21/25 01:23 Discontinued 20 mg IVP X1 ONE Ondansetron Inj [Zofran Inj] Med 07/21/25 01:23 Discontinued 4 mg IVP X1 ONE Pantoprazole Inj [Protonix Inj] Med 07/21/25 01:23 Discontinued 40 mg IVP X1 ONE Sodium Chloride 0.9% 1000 ml [Ns] 1,000 ml Med 07/21/25 01:23 Discontinued IV 999 mls/hr cloNIDine HCL [Catapres] Med 07/21/25 03:18 Discontinued 0.2 mg PO X1 ONE Vital Signs Vital signs: Vital Signs Temperature 97.4 F 07/21/25 01:22 Pulse Rate 87 07/21/25 01:22 Respiratory Rate 22 H 07/21/25 01:22 Blood Pressure 182/80 H 07/21/25 01:22 Pulse Oximetry (%) 95 07/21/25 01:22 Oxygen Delivery Method Room Air 07/21/25 01:22 Abdominal Pain MDM MDM Narrative MDM Narrative:: This section includes all my notes and documentations, including HPI, PE, and ED course. Abhijeet Hernadez MD HPI: 79-year-old female here with upper abdominal pain and severe nausea for the past couple hours. Has frequent similar episodes. No hematemesis or coffee-ground emesis. No rectal bleeding or tarry stools. No fever or chills. No urinary symptoms. Had appendectomy. No other complaints. ROS: All negative except as documented in HPI. Physical Exam: General: Alert and oriented. In obvious pain. High BP noted. Eyes: Conjunctivae and lids clear. ENT: No nasal congestion. Neck: Supple. Heart: RRR. Lungs: No respiratory distress. Good air movement. No rhonchi, wheezing, rales. Abdomen: Soft with upper quadrant tenderness. Normal bowel sounds. No distension. No rebound or guarding. Back: No CVA tenderness. Skin: Warm and dry. Neuro: Alert and oriented X 3. I reviewed all diagnostic test results. Blood tests are unremarkable. My review of 07/10 gallbladder US report is NAD. My review of 07/[address] report is NAD. 07/10 UA normal. At this point, diagnoses include: Stomach ulcer Treatment here included: IVF Famotidine 20 mg IV Protonix 40 mg IV Zofran 4 mg IV Oral clonidine 0.2 mg Significant improvement noted. Recommended more outpatient workup. Based on my best medical judgment, made decision no further evaluation or treatment indicated at this time. Patient understands and agrees to the discharge instructions customized and printed, see below. Discharge instructions from Dr. Hernadez: ?After evaluation, your symptoms are due to stomach ulcer (see attached handout). There is no emergency such as appendicitis needing emergent surgery. ?To help heal the ulcer, take famotidine 40 mg twice daily scheduled. On top of your pantoprazole twice daily. ?Zofran for nausea/vomiting. Clear liquid diet for 24 hours. Then slowly advance diet as tolerated. ?Avoid food and beverages that can trigger and worsen ulcers. See attached handout. Such as spicy foods, acidic foods (tomato products, citrus fruits), fried and fatty foods, caffeinated drinks, alcohol, salty foods, processed meats, dairy, refined carbs (white bread, pasta). ?See a private doctor on 07/24/2025 for recheck. To make sure there is no serious intra-abdominal condition, ask for help with more investigation not available here in the ER. Such as EGD or scoping the stomach, colonoscopy or scoping the colon, and referral to see [employer] [facility]. ?Seek immediate medical care with worsening or with any concerns. Abhijeet Hernadez MD Patient data External records reviewed:: [facility] previous records (Per chart review, patient was seen here on 07/15/25 for GERD.) Clinical information provided by:: patient Social determinants that could affect healthcare access:: none Patient has the following chronic illnesses:: aFib, HTN, DMII, duodenal ulcer, IBS, GERD, diverticulosis How is presenting disease/condition affected by chronic disease/condition?: caused by Evaluation data The following diagnostics were reviewed and interpreted by me:: lab results Lab and/or radiology exams considered but not ordered:: none Interpretation Summary: I reviewed all diagnostic test results. Blood tests are unremarkable. My review of 07/10 gallbladder US report is NAD. My review of 07/[address] report is NAD. 07/10 UA normal. Medications / Prescriptions Medications or Prescriptions considered but not ordered:: none Medication administrations:: Medication Administration History Discontinued Medications Clonidine (Clonidine Hcl 0.1 Mg Tablet) 0.2 mg PO X1 ONE Stop: 07/21/25 03:19 Last Admin: 07/21/25 03:29 Dose: 0.2 mg Documented By: SR Famotidine (Famotidine Inj 10 Mg/Ml Vial 2 Ml) 20 mg IVP X1 ONE Stop: 07/21/25 01:24 Last Admin: 07/21/25 01:40 Dose: 20 mg Documented By: CVL Sodium Chloride (Ns) 1,000 mls @ 999 mls/hr IV .Q1H1M ONE Stop: 07/21/25 02:23 Last Infusion: 07/21/25 02:40 Dose: Infused Documented By: Admin: 07/21/25 01:39 Dose: 999 mls/hr Documented By: CVL Ondansetron HCl (Ondansetron Inj 2 Mg/Ml Inj 2 Ml) 4 mg IVP X1 ONE; Protocol Stop: 07/21/25 01:24 Last Admin: 07/21/25 01:40 Dose: 4 mg Documented By: CVL Pantoprazole Sodium (Pantoprazole Inj 40 Mg Vial) 40 mg IVP X1 ONE Stop: 07/21/25 01:24 Last Admin: 07/21/25 01:40 Dose: 40 mg Documented By: CVL Treatment here included: IVF Famotidine 20 mg IV Protonix 40 mg IV Zofran 4 mg IV Oral clonidine 0.2 mg Consultations Consultation(s) initiated? (list below): No Diagnosis Differential diagnosis abdominal pain: calculus of kidney, constipation, diverticulitis, endometriosis, gastroenteritis, pancreatitis, small bowel obstruction and other (Gastritis, PUD, biliary colic, GERD) Most likely diagnosis given after review of the tests above:: Stomach ulcer Admission Indicated Admission indicated?: not indicated Explain why admission is indicated or not indicated:: With significant improvement and no condition needing emergent intervention, there was no indication for admission. Admission Request Was there a request for admission?: No Disposition Plan Disposition Plan: Discharge Discharge Attestation Discharge Attestation: The patient and all family members were given an opportunity to ask questions and understood the discharge instructions. Discharge instructions specifically effects, indications for sooner follow up or return to the emergency department, and the expected course of current diagnosis. Patient condition: Stable Discharge Plan Plan Patient Disposition: HOME (Self Care) Prescriptions/Referrals Prescriptions/Med Rec: New famotidine 40 mg tablet 40 mg PO BID Qty: 60 0RF ondansetron 4 mg tablet,disintegrating 4 mg PO TID PRN (Reason: nausea and vomiting) 30 Days Qty: 10 0RF No Action metformin 500 mg Tablet 500 mg PO DAILY acetaminophen 500 mg Tablet 500 mg PO PRN MDD 4 PRN (Reason: Pain) levothyroxine 50 mcg Tablet 50 mcg PO DAILY cholecalciferol (vitamin D3) [Vitamin D3] 25 mcg (1,000 unit) Tablet 25 mcg PO 1XD loperamide 2 mg capsule 2 mg PO QDAY alprazolam 0.5 mg tablet 0.5 mg PO BID PRN (Reason: Anxiety) Patient Comments: TAKE 1 TABLET BY MOUTH THREE TIMES DAILY NEEDED FOR ANXIETY pantoprazole 40 mg tablet,delayed release (DR/EC) 40 mg PO BID Patient Comments: TAKE 1 TABLET BY MOUTH DAILY benazepril 20 mg tablet 20 mg PO QDAY lidocaine HCl [Lidocaine Viscous] 2 % solution 5 ml PO TIDPC MDD 15 mL PRN (Reason: dyspepsia) Qty: 300 0RF ondansetron 4 mg tablet,disintegrating 4 mg PO Q8H PRN (Reason: nausea and vomiting) Qty: 10 0RF baclofen 5 mg tablet 5 mg PO BID PRN (Reason: muscle spasm) Qty: 10 0RF Eliquis 5 mg Tablet 5 mg PO QDAY sennosides-docusate sodium [Senokot-S] 8.6-50 mg tablet 2 tab-cap PO QDAY PRN (Reason: constipation) Qty: 20 0RF magnesium hydroxide [Milk Of Magnesia Concentrated] 2,400 mg/10 mL suspension 30 ml PO QDAY PRN (Reason: constipation) Qty: 60 0RF ascorbic acid (vitamin C) [Vitamin C] 500 mg tablet 500 mg PO QDAY ferrous sulfate 325 mg (65 mg iron) Tablet,Delayed Release (Dr/Ec) 325 mg PO QOD Qty: 30 0RF polyethylene glycol 3350 [Miralax] 17 gram/dose powder 4 g PO QDAY Qty: 510 0RF ondansetron 4 mg tablet,disintegrating 4 mg PO Q8H PRN (Reason: nausea and vomiting) Qty: 14 0RF promethazine 25 mg tablet 12.5 mg PO TID PRN (Reason: nausea) Qty: 14 0RF hydrocodone-acetaminophen 5-325 mg tablet 1 tab PO Q8H MDD 3 tab PRN (Reason: pain) Qty: 20 0RF Referrals: Tyrone Langford MD [Primary Care Provider, Family Practice] - In 1 week Problem List Clinical Impression: Stomach ulcer Patient/Caregiver Discharge Instructions Discharge Activity: activity as tolerated Education Materials: ED PUD Additional Instructions: Discharge instructions from Dr. Hernadez: ?After evaluation, your symptoms are due to stomach ulcer (see attached handout).? There is no emergency such as appendicitis needing emergent surgery. ?To help heal the ulcer, take famotidine 40 mg twice daily scheduled. On top of your pantoprazole twice daily. ?Zofran for nausea/vomiting.? Clear liquid diet for 24 hours.? Then slowly advance diet as tolerated. ?Avoid food and beverages that can trigger and worsen ulcers.? See attached handout. Such as spicy foods, acidic foods (tomato products, citrus fruits), fried and fatty foods, caffeinated drinks, alcohol, salty foods, processed meats, dairy, refined carbs (white bread, pasta). ?See a private doctor on 07/24/2025 for recheck. To make sure there is no serious intra-abdominal condition, ask for help with more investigation not available here in the ER.? Such as EGD or scoping the stomach, colonoscopy or scoping the colon, and referral to see [employer] [facility]. ?Seek immediate medical care with worsening or with any concerns. Print Language: Citizen [place] Stand Alone Forms: [employer] Info., Patient Portal Info Letter
[2025-07-21 01:22] VITALS: BP 182/80; BP 188/77; PULSE 87; RESP 22; TEMP 36.3; O2SAT 95
[2025-07-21] MEDS: SODIUM CHLORIDE 0.9% 1000 ML 1,000 ML 999 ML IV (01:39)
[2025-07-21] MEDS: ONDANSETRON INJ 2 MG/ML INJ 2 ML 4 MG IVP (01:40)
[2025-07-21] MEDS: FAMOTIDINE INJ 10 MG/ML VIAL 2 ML 20 MG IVP (01:40)
[2025-07-21 01:42] VITALS: BP 163/73; PULSE 68; RESP 18; O2SAT 95
[2025-07-21 02:04] LABS: Basophils # (Auto) 0.1 Thou/mm3 (0.0-0.2); Basophils % (Auto) 1 % (0-2.5); Eosinophils # (Auto) 0.2 Thou/mm3 (0.0-0.5); Eosinophils % (Auto) 2 % (0-10); Hematocrit 31.9 % (36.0-46.0); Hemoglobin 9.8 g/dL (12.0-16.0); Immature Granulocytes Auto 0.01 Thou/mm3 (0.00-0.00); Lymphocytes # (Auto) 3.0 Thou/mm3 (1.0-4.8); Lymphocytes % (Auto) 36 % (10-50); Mean Corpuscular HGB Conc 30.7 g/dl (31.0-37.0); Mean Corpuscular Hemoglobin 26.1 pg (25.0-35.0); Mean Corpuscular Volume 85 fL (80-100); Monocytes # (Auto) 0.9 Thou/mm3 (0.0-0.8); Monocytes % (Auto) 10 % (0-12); Neutrophils # (Auto) 4.3 Thou/mm3 (1.8-7.7); Neutrophils % (Auto) 51 % (37-80); Nucleated Red Blood Cell # 0.00 Thou/mm3 (0.00-0.00); Nucleated Red Blood Cell % 0 /100 WBC (0); Platelet Count 344 Thou/mm3 (140-440); RDW Standard Deviation 47.6 fL (36.4-46.3); Red Blood Count 3.75 Miln/mm3 (4.00-5.20); White Blood Count 8.4 Thou/mm3 (3.6-11.0)
--- NOTE | 2025-07-21 02:25 | PC.NURSE ---
Patient report received from Ryan RN, patient is awake and alert, lying in bed at its lowest positions with wheels locked. Patient came in to ED c/o abdominal pain not relieved by OTC medications. Patient medicated at ER, infusing IV fluids at this time. Care assumed at this time.
[2025-07-21 03:06] LABS: Alanine Aminotransferase 12 U/L (10-49); Albumin, Serum 4.7 gm/dL (3.4-4.8); Albumin/Globulin Ratio 1.5 (1.2-2.2); Alkaline Phosphatase 79 U/L (46-116); Amylase 57 U/L (30-118); Anion Gap 10 (7-16); Aspartate Amino Transferase 18 U/L (0-34); BUN/Creatinine Ratio 17 Ratio (12-20); Bilirubin,Direct < 0.1 mg/dL (0.0-0.3); Bilirubin,Total 0.2 mg/dL (0.3-1.2); Blood Urea Nitrogen 19 mg/dL (9-23); Calcium 9.5 mg/dL (8.3-10.6); Calcium (Corrected) 9.5 mg/dL (8.5-10.1); Carbon Dioxide 27.0 mMol/L (20.0-31.0); Chloride 104 mMol/L (98-107); Creatinine (Component) 1.1 mg/dL (0.6-1.3); Estimated Creatinine Clearance 37.5 mL/min (>60); Globulin 3.2 gm/dL (2.3-3.5); Glucose 128 mg/dL (74-106); Lipase 34 U/L (12-53); Magnesium 2.0 mg/dL (1.6-2.6); Osmolality,Calculated 285 (275-295); Potassium 4.5 mMol/L (3.4-5.1); Sodium 141 mMol/L (136-145); Total Protein 7.9 gm/dL (5.7-8.2); eGFR 51 See Note
[2025-07-21 03:26] VITALS: BP 182/85; PULSE 72; RESP 202; TEMP 36.4; O2SAT 96
[2025-07-21 03:29] VITALS: BP 182/85; PULSE 68
[2025-07-21 04:23] VITALS: BP 171/61; PULSE 73; RESP 18; TEMP 36.7; O2SAT 99
== END 2025-07-21 04:25 | disposition home or self-care (01) ==
PROVIDERS: Emergency Provider Emergency Medicine; PCP Family Medicine
DX: K25.9 Gastric ulcer, unspecified as acute or chronic, without hemorrhage or perforation (principal)
CPT/HCPCS: 36415; 80053; 82150; 82248; 83690; 83735; 85025; 99283; J2405; J2470; J3490; J7030; A9270

== ENCOUNTER 2025-07-21 16:19 | Emergency (ER) | payer MEDICARE, BC, SELFPAY ==
[2025-07-21 17:00] VITALS: BP 158/77; PULSE 86; RESP 18; TEMP 36.5; O2SAT 95
[2025-07-21] MEDS: LIDOCAINE VISCOUS 2% 15 ML UDC 3 ML PO (17:19)
[2025-07-21] MEDS: MG HYD/AL HYD/SIME (Maalox Reg) SUSP 30 ML UDC PO (17:19)
--- NOTE | 2025-07-22 00:56 | PD.EDABDPN ---
ED Abdominal Pain RME/HPI General Chief Complaint: Abdominal Pain Stated complaint: GENERAL ABDOMINAL PAIN Time seen by provider: 07/21/25 17:02 Arrival date/time: 07/21/25 16:19 Source: patient Mode of arrival: ambulatory Limitations: no limitations RME / HPI RME / HPI narrative: This patient is a 79-year-old female with a history of chronic conditions including multiple gastric ulcerations who arrives today with complaints of epigastric pain concerns. Patient believes it is also related. Patient states she took a narcotic pain medication and then an antianxiety medication prior to arrival without relief from either. Patient denies any fever nausea or vomiting. Patient appears to be in poor overall health. Related Data Home Medications ?Medication ?Instructions ?Recorded ?Confirmed acetaminophen 500 mg tablet 500 mg PO PRN PRN Pain 06/27/23 02/05/25 cholecalciferol (vitamin D3) 25 25 mcg PO 1XD 06/27/23 02/05/25 mcg (1,000 unit) tablet (Vitamin D3) levothyroxine 50 mcg tablet 50 mcg PO DAILY 06/27/23 02/05/25 metformin 500 mg tablet 500 mg PO DAILY 06/27/23 02/05/25 alprazolam 0.5 mg tablet 0.5 mg PO BID PRN Anxiety 10/28/23 02/05/25 benazepril 20 mg tablet 20 mg PO QDAY 10/28/23 02/05/25 loperamide 2 mg capsule 2 mg PO QDAY 10/28/23 02/06/25 pantoprazole 40 mg tablet,delayed 40 mg PO BID 10/28/23 02/05/25 release apixaban 5 mg tablet (Eliquis) 5 mg PO QDAY 06/11/24 02/05/25 ascorbic acid (vitamin C) 500 mg 500 mg PO QDAY 02/05/25 02/05/25 tablet (Vitamin C) Previous Rx's ?Medication ?Instructions ?Recorded lidocaine HCl 2 % mucosal solution 5 ml PO TIDPC PRN dyspepsia #300 mL 07/02/24 (Lidocaine Viscous) magnesium hydroxide 2,400 mg/10 mL 30 ml PO QDAY PRN constipation #60 01/22/25 oral suspension (Milk Of Magnesia mL Concentrated) sennosides 8.6 mg-docusate sodium 2 tab-cap (2 x 8.6-50 mg) PO QDAY 01/22/25 50 mg tablet (Senokot-S) PRN constipation #20 tabs ferrous sulfate 325 mg (65 mg 325 mg PO QOD #30 tabs 02/14/25 iron) tablet,delayed release ondansetron 4 mg disintegrating 4 mg PO Q8H PRN nausea and 02/26/25 tablet vomiting #10 tabs polyethylene glycol 3350 17 4 g PO QDAY #510 grams 02/26/25 gram/dose oral powder (Miralax) baclofen 5 mg tablet 5 mg PO BID PRN muscle spasm #10 06/03/25 tabs ondansetron 4 mg disintegrating 4 mg PO Q8H PRN nausea and 06/11/25 tablet vomiting #14 tabs hydrocodone 5 mg-acetaminophen 325 1 tab PO Q8H PRN pain #20 tabs 06/17/25 mg tablet promethazine 25 mg tablet 12.5 mg (1/2 x 25 mg) PO TID PRN 06/17/25 nausea #14 tabs famotidine 40 mg tablet 40 mg PO BID #60 tabs 07/21/25 ondansetron 4 mg disintegrating 4 mg PO TID PRN nausea and 07/21/25 tablet vomiting 30 days #10 tabs Allergies Allergy/AdvReac Type Severity Reaction Status Date / Time amoxicillin (From Augmentin) Allergy Severe Hives Verified 07/15/25 05:52 aspirin Allergy Severe Abdominal Verified 07/15/25 05:52 Pain ciprofloxacin (From Cipro) Allergy Severe Gastrointestinal Verified 07/15/25 05:52 Upset clavulanic acid (From Allergy Severe Hives Verified 07/15/25 05:52 Augmentin) codeine Allergy Severe Nausea Verified 07/15/25 05:52 fluconazole Allergy Severe Rash Verified 07/15/25 05:52 gabapentin Allergy Severe Abdominal Verified 07/15/25 05:52 Pain ketorolac (From Toradol) Allergy Severe Abdominal Verified 07/15/25 05:52 Pain nalbuphine Allergy Severe Abdominal Verified 07/15/25 05:52 Pain Sulfa (Sulfonamide Allergy Severe Hives Verified 07/15/25 05:52 Antibiotics) tizanidine Allergy Severe Rash Verified 07/15/25 05:52 tramadol Allergy Severe Rash Verified 07/15/25 05:52 dicyclomine (From Bentyl) AdvReac Severe Abdominal Verified 07/15/25 05:52 Pain Review of Systems Review of Systems Systems Reviewed: All systems reviewed, normal except as documented Past Medical History Past Medical History NEUROLOGIC: Negative Neurological Disorders or Seizures CARDIAC: Positive Cardiac Disorders, Cardiac Arrhythmia, Atrial Fibrillation, Hypercholesterolemia and Hypertension; Negative Congestive Heart Failure RESPIRATORY: Positive Pneumonia and Sleep Apnea; Negative Chronic Obstructive Pulmonary Disease (COPD) or Asthma GASTROINTESTINAL: Positive Gastrointestinal Disorders, Gastrointestinal Bleed, Colitis, Ulcerative Colitis, Diverticulitis, Diverticulosis, Ulcer, Irritable Bowel, Obstructive Bowel, Hemorrhoids and Obesity GENITOURINARY: Positive Kidney Stones; Negative Genitourinary Disorders or Renal Disease REPRODUCTIVE: Positive Previous Pregnancies MUSCULOSKELETAL: Positive Musculoskeletal Disorders and Arthritis ENT: Positive Cataracts and Ear Infection ENDOCRINE: Positive Diabetes Mellitus Type 2 and Hypothyroidism; Negative Diabetes Mellitus Type 1 HEMATOLOGIC: Negative Blood Disorders or Sickle Cell Disease PSYCHO/SOCIAL: Positive Anxiety OTHER HISTORY: Positive Falls, Blood Transfusions, Chicken Pox, Mumps and Clostridium Difficile; Negative Blood Transfusion Reaction, Anesthesia Reactions or Cancer Family History FAMILY HISTORY: Positive Family Cardiac Disorders; Negative Family Respiratory Disorders Surgical History SURGICAL: Positive Cardiac Surgery, Endocrine Surgery, Thyroidectomy, Abdominal Surgery, Joint Replacement, Hysterectomy and Section Social History SMOKING STATUS: Never smoker SUBSTANCE USE: does not use ED Exam Narrative Physical exam: Diffuse epigastric pain. Patient appears to be in moderate distress. General Limitations: Present no limitations General appearance: Present alert and in distress (Due to diffuse abdominal pain concerns.) Head Head exam: Present atraumatic Eye Eye exam: Present normal appearance, PERRL and EOMI ENT ENT exam: Present normal exam, normal oropharynx and mucous membranes moist Neck Neck exam: Present normal inspection, full ROM and trachea midline Chest Chest inspection: Present normal inspection and symmetric chest wall rise Respiratory Respiratory exam: Present normal lung sounds bilaterally Cardiovascular Cardiovascular exam: Present regular rate, normal rhythm and normal heart sounds Abdominal Exam Abdominal exam: Present soft, normal bowel sounds and other (Nonspecific diffuse tenderness to palpation bilaterally. Abdomen was reasonably soft. No pulsatile masses.) Abdominal tenderness: Present epigastrium and diffuse Extremities Exam Extremities exam: Present normal inspection and full ROM Back Exam Back exam: Present normal inspection and full ROM Neurological Exam Neurological exam: Present alert, oriented X3 and CN II-XII intact Psychiatric Psychiatric exam: Present normal affect and normal mood Skin Skin exam: Present warm, dry, intact and normal color Course Quality Measures none Orders Category Date Time Status Lidocaine 2% Viscous [Xylocaine 2% Viscous] Med 07/21/25 17:06 Discontinued 3 ml PO X1 ONE mg Hyd/Al Hyd/Jennifer Susp [Maalox Susp] Med 07/21/25 17:06 Discontinued 30 ml PO X1 ONE As noted above Vital Signs Vital signs: Vital Signs Temperature 97.7 F 07/21/25 17:00 Pulse Rate 86 07/21/25 17:00 Respiratory Rate 18 07/21/25 17:00 Blood Pressure 158/77 H 07/21/25 17:00 Pulse Oximetry (%) 95 07/21/25 17:00 Oxygen Delivery Method Room Air 07/21/25 17:00 As noted above Abdominal Pain MDM MDM Narrative MDM Narrative:: Patient received a GI cocktail and Bentyl while in the facility. I had attempted to run some basic testing on the patient, but nursing informing the patient eloped from the facility. Patient data External records reviewed:: [facility] previous records Clinical information provided by:: patient Social determinants that could affect healthcare access:: none Patient has the following chronic illnesses:: GI issues How is presenting disease/condition affected by chronic disease/condition?: caused by Evaluation data The following diagnostics were reviewed and interpreted by me:: other (specify) Lab and/or radiology exams considered but not ordered:: None Interpretation Summary: None Medications / Prescriptions Medications or Prescriptions considered but not ordered:: None Medication administrations:: Medication Administration History Discontinued Medications Al Hydrox/Mg Hydrox/Simethicone (Mg Hyd/Al Hyd/Jennifer (Maalox Reg) Susp 30 Ml Udc) 30 ml PO X1 ONE Stop: 07/21/25 17:07 Last Admin: 07/21/25 17:19 Dose: 30 ml Documented By: DO Lidocaine HCl (Lidocaine Viscous 2% 15 Ml Udc) 3 ml PO X1 ONE Stop: 07/21/25 17:07 Last Admin: 07/21/25 17:19 Dose: 3 ml Documented By: DO As noted above Consultations Consultation(s) initiated? (list below): No Diagnosis Differential diagnosis abdominal pain: abdominal pain Most likely diagnosis given after review of the tests above:: Abdominal pain Admission Indicated Admission indicated?: not indicated Explain why admission is indicated or not indicated:: Unwarranted Admission Request Was there a request for admission?: No Disposition Plan Disposition Plan: Discharge Discharge Attestation Discharge Attestation: The patient and all family members were given an opportunity to ask questions and understood the discharge instructions. Discharge instructions specifically effects, indications for sooner follow up or return to the emergency department, and the expected course of current diagnosis. Patient condition: Stable Discharge Plan Plan Patient Disposition: Elopement Prescriptions/Referrals Prescriptions/Med Rec: No Action metformin 500 mg Tablet 500 mg PO DAILY acetaminophen 500 mg Tablet 500 mg PO PRN MDD 4 PRN (Reason: Pain) levothyroxine 50 mcg Tablet 50 mcg PO DAILY cholecalciferol (vitamin D3) [Vitamin D3] 25 mcg (1,000 unit) Tablet 25 mcg PO 1XD loperamide 2 mg capsule 2 mg PO QDAY alprazolam 0.5 mg tablet 0.5 mg PO BID PRN (Reason: Anxiety) Patient Comments: TAKE 1 TABLET BY MOUTH THREE TIMES DAILY NEEDED FOR ANXIETY pantoprazole 40 mg tablet,delayed release (DR/EC) 40 mg PO BID Patient Comments: TAKE 1 TABLET BY MOUTH DAILY benazepril 20 mg tablet 20 mg PO QDAY lidocaine HCl [Lidocaine Viscous] 2 % solution 5 ml PO TIDPC MDD 15 mL PRN (Reason: dyspepsia) Qty: 300 0RF ondansetron 4 mg tablet,disintegrating 4 mg PO Q8H PRN (Reason: nausea and vomiting) Qty: 10 0RF baclofen 5 mg tablet 5 mg PO BID PRN (Reason: muscle spasm) Qty: 10 0RF famotidine 40 mg tablet 40 mg PO BID Qty: 60 0RF ondansetron 4 mg tablet,disintegrating 4 mg PO TID PRN (Reason: nausea and vomiting) 30 Days Qty: 10 0RF Eliquis 5 mg Tablet 5 mg PO QDAY sennosides-docusate sodium [Senokot-S] 8.6-50 mg tablet 2 tab-cap PO QDAY PRN (Reason: constipation) Qty: 20 0RF magnesium hydroxide [Milk Of Magnesia Concentrated] 2,400 mg/10 mL suspension 30 ml PO QDAY PRN (Reason: constipation) Qty: 60 0RF ascorbic acid (vitamin C) [Vitamin C] 500 mg tablet 500 mg PO QDAY ferrous sulfate 325 mg (65 mg iron) Tablet,Delayed Release (Dr/Ec) 325 mg PO QOD Qty: 30 0RF polyethylene glycol 3350 [Miralax] 17 gram/dose powder 4 g PO QDAY Qty: 510 0RF ondansetron 4 mg tablet,disintegrating 4 mg PO Q8H PRN (Reason: nausea and vomiting) Qty: 14 0RF promethazine 25 mg tablet 12.5 mg PO TID PRN (Reason: nausea) Qty: 14 0RF hydrocodone-acetaminophen 5-325 mg tablet 1 tab PO Q8H MDD 3 tab PRN (Reason: pain) Qty: 20 0RF Referrals: No Primary/Family,Physician [Primary Care Provider] - In 1 week Problem List Clinical Impression: Abdominal pain Patient/Caregiver Discharge Instructions Education Materials: Abdominal Pain Additional Instructions: Patient eloped Print Language: Mauritian
== END 2025-07-21 17:53 | disposition left against medical advice (07) ==
LOC: SERX 17:35
PROVIDERS: Emergency Provider Nurse Practitioner Family
DX: R10.13 Epigastric pain (principal); Z53.29 Procedure and treatment not carried out because of patient's decision for other reasons
CPT/HCPCS: 99281; J3490; A9270

== ENCOUNTER 2025-07-23 12:10 | Emergency (ER) | payer MEDICARE, BC, SELFPAY ==
[2025-07-23 12:11] VITALS: BMI 31.2
[2025-07-23 12:37] VITALS: BP 170/73; PULSE 107; RESP 18; TEMP 36.6; O2SAT 97
--- NOTE | 2025-07-23 13:21 | XR_ITS ---
Examination: CT abdomen and pelvis without contrast. Coronal 3-D reconstructions. Sagittal 2-D reconstructions. Date and time of exam: July 23, 2025 1336 hours INDICATIONS: Lower abdominal pain nausea vomiting beginning 3 days ago CTDI: vol (mGy): 9.8 DLP: (mGycm): 489 Technique: Axial images of the abdomen have been obtained, 3 mm slice thickness Intravenous contrast material has not been administered. Low dose protocols were performed. One or more of the following dose reduction techniques were used; automated exposure control, adjustment of the mA and/or KV according to patient size, use of iterative reconstruction technique. Findings: No visualized liver or splenic lesion No gallstones No pancreatic or adrenal mass 25 mm posterior right renal cysts, no hydronephrosis renal or ureteral calculi Aorta normal size No pericecal inflammatory change No bowel obstruction Colonic diverticulosis, no diverticulitis Detail in the pelvis is reduced secondary to the hip arthroplasty No pelvic mass Bladder intact Severe osteopenia Transpedicular lumbar stabilization L5-S1, grade 1 anterolisthesis L4 on L5, L5 on S1 IMPRESSION: No renal or ureteral calculi No hydronephrosis No CT findings of appendicitis bowel obstruction or diverticulitis
--- NOTE | 2025-07-23 13:22 | EKG_ITS ---
[facility] Test Date: 2025-07-23 Pat Name: MARIBEL ALAMO Department: Room: - Gender: Female [employer]ester: : [id number] Requested By: Antonino Larios Order Number: [id number] Reading MD: Antonino Larios Measurements Intervals [place] Rate: 77 P: 98 ME: 129 QRS: -12 QRSD: 102 T: 76 QT: 349 QTc: 396 Interpretive Statements SINUS RHYTHM WITH FREQUENT VENTRICULAR PREMATURE COMPLEXES LEFT VENTRICULAR HYPERTROPHY AND ST-T CHANGE [VOLTAGE CRITERIA PLUS ST/T ABNORMALITY] POSSIBLE ANTERIOR MYOCARDIAL INFARCTION , OF INDETERMINATE AGE [30 ms Q WAVE IN V3/V4, OR R < 0.2 mV IN V4] Compared to ECG 06/20/2025 16:23:18 ST (T wave) deviation now present Myocardial infarct finding still present /store/S0/[id number].pdf
--- NOTE | 2025-07-23 13:35 | EDNOTE_ITS ---
<Statement entered by Jenniffer Santana MD - 07/23/25 17:49> As co-signing physician, I was present and available for consult prn. I concur with the plan and care as documented by the midlevel provider. ED Abdominal Pain RME/HPI General Chief Complaint: Abdominal Pain Stated complaint: BLOATED, N/V, ABD PAIN Time seen by provider: 07/23/25 12:51 Arrival date/time: 07/23/25 12:10 RME / HPI RME / HPI narrative: 79-year-old female past medical history of hypertension, diabetes mellitus type 2, history of atrial fibrillation (previously on Eliquis which was stopped a little over a month ago), hypothyroidism, irritable bowel syndrome, history of duodenal ulcers, GI bleed, gastritis and esophagitis on EGD (on 02/13/2025) history of diverticulosis/diverticulitis who presents to the ER complaining of acute on chronic abdominal pain which started last night associate with nausea and bloating. Denies any vomiting, tarry stool, diarrhea, chest pain, shortness of breath, dizziness. Related Data Home Medications ?Medication ?Instructions ?Recorded ?Confirmed acetaminophen 500 mg tablet 500 mg PO PRN PRN Pain 02/05/25 cholecalciferol (vitamin D3) 25 25 mcg PO 1XD 06/27/23 02/05/25 mcg (1,000 unit) tablet (Vitamin D3) levothyroxine 50 mcg tablet 50 mcg PO DAILY 06/27/23 0 02/05/25 metformin 500 mg tablet 500 mg PO DAILY 06/27/23 alprazolam 0.5 mg tablet 0.5 mg PO BID PRN Anxiety 02/05/25 benazepril 20 mg tablet 20 mg PO QDAY 10/28/2302/05 loperamide 2 mg capsule 2 mg PO QDAY 10/28/23 pantoprazole 40 mg tablet,delayed 40 mg PO BID 4 02/05/25 release apixaban 5 mg tablet (Eliquis) 5 mg PO QDAY 06/11/24 0 02/05/25 ascorbic acid (vitamin C) 500 mg 500 mg PO QDAY 02/05/25 tablet (Vitamin C) Previous Rx's ?Medication ?Instructions ?Recorded lidocaine HCl 2 % mucosal solution 5 ml PO TIDPC PRN d yspepsia #300 mL 07/02/24 (Lidocaine Viscous) magnesium hydroxide 2,400 mg/10 mL 30 ml PO QDAY PRN c onstipation #60 01/22/25 oral suspension (Milk Of Magnesia mL Concentrated) sennosides 8.6 mg-docusate sodium 2 tab-cap (2 x 8.6-5 0 mg) PO QDAY 01/22/25 50 mg tablet (Senokot-S) PRN constipation #20 tabs ferrous sulfate 325 mg (65 mg 325 mg PO QOD #30 tabs 0 02/14/25 iron) tablet,delayed release ondansetron 4 mg disintegrating 4 mg PO Q8H PRN nausea and 02/26/25 tablet vomiting #10 tabs polyethylene glycol 3350 17 4 g PO QDAY #510 grams gram/dose oral powder (Miralax) baclofen 5 mg tablet 5 mg PO BID PRN muscle spasm #10 06/03/25 tabs ondansetron 4 mg disintegrating 4 mg PO Q8H PRN nausea and 06/11/25 tablet vomiting #14 tabs hydrocodone 5 mg-acetaminophen 325 1 tab PO Q8H PRN pa in #20 tabs 06/17/25 mg tablet promethazine 25 mg tablet 12.5 mg (1/2 x 25 mg) PO TID PRN 06/17/25 nausea #14 tabs famotidine 40 mg tablet 40 mg PO BID #60 tabs ondansetron 4 mg disintegrating 4 mg PO TID PRN nausea and 07/21/25 tablet vomiting 30 days #10 tabs pantoprazole 40 mg tablet,delayed 40 mg PO QDAY #14 ta bs 07/23/25 release (Protonix) Allergies Allergy/AdvReac Type Severity Reaction Status Date / Time amoxicillin (From Augmentin) Allergy Severe Hives Verified 07/23/25 12:13 aspirin Allergy Severe Abdominal Verified 07/23/25 12:13 Pain ciprofloxacin (From Cipro) Allergy Severe Gastrointestinal Verified 07/23/25 12:13 Upset clavulanic acid (From Allergy Severe Hives Verified 07/23/25 12:13 Augmentin) codeine Allergy Severe Nausea Verified 07/23/25 12:13 fluconazole Allergy Severe Rash Verified 07/23/25 12:13 gabapentin Allergy Severe Abdominal Verified 07/23/25 12:13 Pain ketorolac (From Toradol) Allergy Severe Abdominal Verified 07/23/25 12:13 Pain nalbuphine Allergy Severe Abdominal Verified 07/23/25 12:13 Pain Sulfa (Sulfonamide Allergy Severe Hives Verified 07/23/25 12:13 Antibiotics) tizanidine Allergy Severe Rash Verified 07/23/25 12:13 tramadol Allergy Severe Rash Verified 07/23/25 12:13 dicyclomine (From Bentyl) AdvReac Severe Abdominal Verified 07/23/25 12:13 Pain Course Quality Measures none Orders Category Date Time Status EKG (ED ONLY) *Do not use* NOW Care 07/23/25 13:[address] abdomen pelvis wo con Stat Exams 07/23/25 13:21 Completed EKG (ED Only) Stat Exams 07/23/25 13:22 Draft CBC Stat Lab 07/23/25 13:51 Completed CMP [Comprehensive Metabolic Panel] Stat Lab 07/23/25 13:51 Completed HCG Qualitative,Urine Stat Lab 07/23/25 14:15 Completed INR [Prothrombin Time with INR] Stat Lab 07/23/25 13:51 Completed Lipase Stat Lab 07/23/25 13:51 Completed Troponin I Stat Lab 07/23/25 13:51 Completed UA, C/S IF [Urinalysis, C/S if Indicated] Stat Lab 07/23/25 14:15 Completed Lidocaine 2% Viscous [Xylocaine 2% Viscous] Med 07/23/25 13:21 Discontinued 15 ml PO X1 ONE Ondansetron Odt [Zofran Odt] Med 07/23/25 13:21 Discontinued 4 mg PO X1 ONE mg Hyd/Al Hyd/Jennifer Susp [Maalox Susp] Med 07/23/25 13:21 Discontinued 30 ml PO X1 ONE Vital Signs Vital signs: Vital Signs Temperature 97.8 F 07/23/25 12:37 Pulse Rate 107 H 07/23/25 12:37 Respiratory Rate 18 07/23/25 12:37 Blood Pressure 170/73 H 07/23/25 12:37 Pulse Oximetry (%) 97 07/23/25 12:37 Oxygen Delivery Method Room Air 07/23/25 12:37 PROCEDURES: EKG Interpretation #1: Interpretation: Interpreted by me EKG Impression: Normal sinus rhythm and PVCs Additional EKG comment: 77 is the rate and normal sinus rhythm, QTc 396, nonspecific ST abnormalities noted throughout however this is unchanged from prior EKG Abdominal Pain MDM MDM Narrative MDM Narrative:: MDM: The patient presents with abdominal pain without definite explanation found on evaluation today. However, there are no signs of peritonitis or other life- threatening or serious etiology. I considered admission; however, given negative work up and imaging, admission is not indicated. Serial abdominal exams were benign throughout the ED stay, and the patient tolerated oral intake without difficulty. The inherent uncertainty with undifferentiated abdominal pain was emphasized, and strict return precautions were provided. The patient has been instructed that this presentation could represent an early acute abdominal process. The plan is for mandatory re-evaluation within 24 hours and immediate return for worsening, persistence, or change in symptoms. The patient may follow up with their primary care provider or return to the ED as appropriate. The patient appears stable for discharge at this time. At the time of reassessment, the patient remains alert and appropriate for age with GCS 15. Vitals are normal, pain is controlled, breathing with respiratory distress, and the patient is tolerating oral intake without nausea or vomiting. The legal guardian is agreeable to discharge and verbalizes understanding of the diagnosis, studies, treatment plan, medications (including side effects/precautions), and strict ER return precautions as discussed in the ED. All concerns were addressed, and the legal guardian is comfortable with the plan. Patient data External records reviewed:: [facility] previous records Clinical information provided by:: patient Social determinants that could affect healthcare access:: other (specify) Patient has the following chronic illnesses:: As noted How is presenting disease/condition affected by chronic disease/condition?: caused by Evaluation data The following diagnostics were reviewed and interpreted by me:: lab results, radiology exam(s) and EKG tracing(s) Lab and/or radiology exams considered but not ordered:: Additional Labs and radiology considered, but not ordered as they were not clinically indicated at this time. Interpretation Summary: Patient was seen here 2 days ago for similar complaint her hemoglobin has actually improved since then despite still having mild anemia remainder of CBC with normal white blood cell count and platelets as well as coags CMP with a normal BUN of 14, glucose minimally elevated 165 total protein serum minimally elevated otherwise no severe metabolic or electrolyte abnormality within normal lipase and no signs of acute hepatobiliary obstruction UA without signs of infection EKG without acute ischemia or arrhythmia CT scan without acute intra-abdominal or pelvic abnormality Medications / Prescriptions Medications or Prescriptions considered but not ordered:: I ordered medications based on the patient?s clinical needs and assessment, as documented in the chart. For medications not prescribed, they were not indicated for the patient's current condition, and I determined they were unnecessary at this time to avoid potential risks or complications. Medication administrations:: Medication Administration History Discontinued Medications Al Hydrox/Mg Hydrox/Simethicone (Mg Hyd/Al Hyd/Jennifer (Maalox Reg) Susp 30 Ml Udc) 30 ml PO X1 ONE Stop: 07/23/25 13:22 Last Admin: 07/23/25 13:51 Dose: 30 ml Documented By: BD Lidocaine HCl (Lidocaine Viscous 2% 15 Ml Udc) 15 ml PO X1 ONE Stop: 07/23/25 13:22 Last Admin: 07/23/25 13:51 Dose: 15 ml Documented By: BD Ondansetron HCl (Ondansetron Odt 4 Mg Tabrap) 4 mg PO X1 ONE; Protocol Stop: 07/23/25 13:22 Last Admin: 07/23/25 13:51 Dose: 4 mg Documented By: BD As noted Consultations Consultation(s) initiated? (list below): No Diagnosis Differential diagnosis abdominal pain: abdominal pain Most likely diagnosis given after review of the tests above:: Abdominal pain of unclear etiology Admission Indicated Admission indicated?: not indicated Admission Request Was there a request for admission?: No Disposition Plan Disposition Plan: Discharge Discharge Attestation Discharge Attestation: The patient and all family members were given an opportunity to ask questions and understood the discharge instructions. Discharge instructions specifically effects, indications for sooner follow up or return to the emergency department, and the expected course of current diagnosis. Patient condition: Stable Discharge Plan Plan Patient Disposition: HOME (Self Care) Patient condition on transfer: Stable Prescriptions/Referrals Prescriptions/Med Rec: New pantoprazole [Protonix] 40 mg tablet,delayed release (DR/EC) 40 mg PO QDAY Qty: 14 0RF No Action metformin 500 mg Tablet 500 mg PO DAILY acetaminophen 500 mg Tablet 500 mg PO PRN MDD 4 PRN (Reason: Pain) levothyroxine 50 mcg Tablet 50 mcg PO DAILY cholecalciferol (vitamin D3) [Vitamin D3] 25 mcg (1,000 unit) Tablet 25 mcg PO 1XD loperamide 2 mg capsule 2 mg PO QDAY alprazolam 0.5 mg tablet 0.5 mg PO BID PRN (Reason: Anxiety) Patient Comments: TAKE 1 TABLET BY MOUTH THREE TIMES DAILY NEEDED FOR ANXIETY pantoprazole 40 mg tablet,delayed release (DR/EC) 40 mg PO BID Patient Comments: TAKE 1 TABLET BY MOUTH DAILY benazepril 20 mg tablet 20 mg PO QDAY lidocaine HCl [Lidocaine Viscous] 2 % solution 5 ml PO TIDPC MDD 15 mL PRN (Reason: dyspepsia) Qty: 300 0RF ondansetron 4 mg tablet,disintegrating 4 mg PO Q8H PRN (Reason: nausea and vomiting) Qty: 10 0RF baclofen 5 mg tablet 5 mg PO BID PRN (Reason: muscle spasm) Qty: 10 0RF famotidine 40 mg tablet 40 mg PO BID Qty: 60 0RF ondansetron 4 mg tablet,disintegrating 4 mg PO TID PRN (Reason: nausea and vomiting) 30 Days Qty: 10 0RF Eliquis 5 mg Tablet 5 mg PO QDAY sennosides-docusate sodium [Senokot-S] 8.6-50 mg tablet 2 tab-cap PO QDAY PRN (Reason: constipation) Qty: 20 0RF magnesium hydroxide [Milk Of Magnesia Concentrated] 2,400 mg/10 mL suspension 30 ml PO QDAY PRN (Reason: constipation) Qty: 60 0RF ascorbic acid (vitamin C) [Vitamin C] 500 mg tablet 500 mg PO QDAY ferrous sulfate 325 mg (65 mg iron) Tablet,Delayed Release (Dr/Ec) 325 mg PO QOD Qty: 30 0RF polyethylene glycol 3350 [Miralax] 17 gram/dose powder 4 g PO QDAY Qty: 510 0RF ondansetron 4 mg tablet,disintegrating 4 mg PO Q8H PRN (Reason: nausea and vomiting) Qty: 14 0RF promethazine 25 mg tablet 12.5 mg PO TID PRN (Reason: nausea) Qty: 14 0RF hydrocodone-acetaminophen 5-325 mg tablet 1 tab PO Q8H MDD 3 tab PRN (Reason: pain) Qty: 20 0RF Referrals: Tyrone Langford MD [Primary Care Provider, Family Practice] - In 1 week Problem List Clinical Impression: Abdominal pain Patient/Caregiver Discharge Instructions Education Materials: Abdominal Pain Additional Instructions: Follow up with your primary medical doctor within 24 hours. Return to the Emergency Room immediately for any new, worsening, continuing symptoms or any concerns at all. Return to the Emergency Room within 24 hours if you are unable to follow up with your primary medical doctor within 24 hours. Print Language: Trinidadian Stand Alone Forms: [employer] Award Info., Patient Portal Info Letter PA/BODY SHOP WORKER Supervising Physician PA/BODY SHOP WORKER Supervising Physician: Dr. SANTANA
[2025-07-23] MEDS: MG HYD/AL HYD/SIME (Maalox Reg) SUSP 30 ML UDC PO (13:51)
[2025-07-23] MEDS: LIDOCAINE VISCOUS 2% 15 ML UDC PO (13:51)
[2025-07-23] MEDS: ONDANSETRON ODT 4 MG TABRAP PO (13:51)
[2025-07-23 14:25] LABS: Collection Type, Urine Voided
[2025-07-23 14:33] LABS: Bilirubin,Urine Negative (Negative); Blood,Urine Negative (Negative); Clarity,Urine Clear (Clear/Hazy); Color,Urine Colorless (Lt Yel-Yel); Culture Indicated,Urine Not Indicated; Glucose, Urine Negative (Negative); HCG Qualitative,Urine Negative; Ketones,Urine Negative (Negative); Leukocyte Esterase,Urine Negative (Negative); Nitrite,Urine Negative (Negative); PH,Urine 6.0 (5.0-7.0); Protein,Urine Negative (Neg - Trace); RBC,Urine 2 /hpf (0-3); Specific Gravity,Urine 1.007 (1.001-1.035); Squamous Epithelial Cell,Urine < 1 /hpf (0-5); Urobilinogen,Urine Negative mg/dL (0.0-1.0); WBC,Urine 1 /hpf (0-5)
[2025-07-23 14:38] LABS: Basophils # (Auto) 0.0 Thou/mm3 (0.0-0.2); Basophils % (Auto) 1 % (0-2.5); Eosinophils # (Auto) 0.0 Thou/mm3 (0.0-0.5); Eosinophils % (Auto) 1 % (0-10); Hematocrit 31.9 % (36.0-46.0); Hemoglobin 10.0 g/dL (12.0-16.0); Immature Granulocytes Auto 0.02 Thou/mm3 (0.00-0.00); Lymphocytes # (Auto) 1.5 Thou/mm3 (1.0-4.8); Lymphocytes % (Auto) 23 % (10-50); Mean Corpuscular HGB Conc 31.3 g/dl (31.0-37.0); Mean Corpuscular Hemoglobin 26.0 pg (25.0-35.0); Mean Corpuscular Volume 83 fL (80-100); Monocytes # (Auto) 0.4 Thou/mm3 (0.0-0.8); Monocytes % (Auto) 7 % (0-12); Neutrophils # (Auto) 4.3 Thou/mm3 (1.8-7.7); Neutrophils % (Auto) 69 % (37-80); Nucleated Red Blood Cell # 0.00 Thou/mm3 (0.00-0.00); Nucleated Red Blood Cell % 0 /100 WBC (0); Platelet Count 217 Thou/mm3 (140-440); RDW Standard Deviation 46.8 fL (36.4-46.3); Red Blood Count 3.85 Miln/mm3 (4.00-5.20); White Blood Count 6.3 Thou/mm3 (3.6-11.0)
[2025-07-23 14:46] LABS: INR 1.0 (0.9-1.3); Prothrombin Time 10.3 Seconds (9.0-12.2)
[2025-07-23 14:53] LABS: Alanine Aminotransferase 16 U/L (10-49); Albumin, Serum 5.0 gm/dL (3.4-4.8); Albumin/Globulin Ratio 1.5 (1.2-2.2); Alkaline Phosphatase 72 U/L (46-116); Anion Gap 14 (7-16); Aspartate Amino Transferase 21 U/L (0-34); BUN/Creatinine Ratio 13 Ratio (12-20); Bilirubin,Total 0.2 mg/dL (0.3-1.2); Blood Urea Nitrogen 14 mg/dL (9-23); Calcium 9.8 mg/dL (8.3-10.6); Calcium (Corrected) 9.8 mg/dL (8.5-10.1); Carbon Dioxide 26.2 mMol/L (20.0-31.0); Chloride 101 mMol/L (98-107); Creatinine (Component) 1.1 mg/dL (0.6-1.3); Estimated Creatinine Clearance 37.5 mL/min (>60); Globulin 3.4 gm/dL (2.3-3.5); Glucose 165 mg/dL (74-106); Lipase 28 U/L (12-53); Osmolality,Calculated 285 (275-295); Potassium 4.0 mMol/L (3.4-5.1); Sodium 141 mMol/L (136-145); Total Protein 8.4 gm/dL (5.7-8.2); Troponin I < 0.002 ng/mL (0.0-0.045); eGFR 51 See Note
--- NOTE | 2025-07-23 16:43 | PC.NURSE ---
did not FEEL LIKE WAITING FOR dc PAPERS
== END 2025-07-23 16:44 | disposition home or self-care (01) ==
PROVIDERS: Physician Assistant; Emergency Provider Emergency Medicine; PCP Family Medicine
DX: R10.9 Unspecified abdominal pain (principal); I49.3 Ventricular premature depolarization
CPT/HCPCS: 36415; 74176; 80053; 81001; 81025; 83690; 84484; 85025; 85610; 93005; 99283; J3490; Q0162; A9270

== ENCOUNTER 2025-07-26 03:40 | Emergency (ER) | payer MEDICARE, BC, SELFPAY ==
--- NOTE | 2025-07-26 03:58 | EKG_ITS ---
[facility] Test Date: 2025-07-26 Pat Name: MARIBEL ALAMO Department: Room: - Gender: Female Director Of Training: : 1945 Requested By: Qamar Roberts Order Number: [id number] Reading MD: Qamar Roberts Measurements Intervals [place] Rate: 80 P: 44 OK: 136 QRS: -22 QRSD: 112 T: 84 QT: 388 QTc: 450 Interpretive Statements SINUS RHYTHM LEFT VENTRICULAR HYPERTROPHY AND ST-T CHANGE [VOLTAGE CRITERIA PLUS ST/T ABNORMALITY] POSSIBLE ANTEROSEPTAL MYOCARDIAL INFARCTION , OF INDETERMINATE AGE [30 ms Q WAVE IN V1-V4] Compared to ECG 07/23/2025 13:28:16 Ventricular premature complex(es) no longer present ST (T wave) deviation still present Myocardial infarct finding still present /store/S0/[id number].pdf
[2025-07-26 04:08] VITALS: BMI 25.7
[2025-07-26 04:10] VITALS: BP 135/81; PULSE 80; RESP 18; TEMP 36.6; O2SAT 96
--- NOTE | 2025-07-26 04:30 | XR_ITS ---
EXAMINATION: AP chest single view TECHNIQUE: AP portable upright chest single view Date and time: July 26, 2025, 0432 hours, comparison June 10, 2025 INDICATIONS: Chest pain today. FINDINGS: Mild enlargement cardiac contour. Moderate vascular congestion. No kapil pulmonary edema No lobar pneumonia Prominent osteopenia IMPRESSION: Mild enlargement cardiac contour Moderate vascular congestion
--- NOTE | 2025-07-26 04:31 | EDRME_ITS ---
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 Vital signs: Vital Signs Temperature 98 F 07/26/25 04:10 Pulse Rate 80 07/26/25 04:10 Respiratory Rate 18 07/26/25 04:10 Blood Pressure 135/81 H 07/26/25 04:10 Pulse Oximetry (%) 96 07/26/25 04:10 Oxygen Delivery Method Room Air 07/26/25 04:10 Exam: Mild epigastric tenderness. Speech normal. Clinical Impression: IBS vs gastroenteritis vs colitis vs stomach ulcer vs gastritis
[2025-07-26] MEDS: METOCLOPRAMIDE 5 MG TABLET 10 MG PO (04:46)
[2025-07-26] MEDS: LIDOCAINE VISCOUS 2% 15 ML UDC PO (04:54)
[2025-07-26 06:16] LABS: Lactate (Lactic Acid) 1.7 mMol/L (0.4-2.0)
[2025-07-26 06:23] LABS: Basophils # (Auto) 0.0 Thou/mm3 (0.0-0.2); Basophils % (Auto) 1 % (0-2.5); Eosinophils # (Auto) 0.1 Thou/mm3 (0.0-0.5); Eosinophils % (Auto) 1 % (0-10); Hematocrit 31.9 % (36.0-46.0); Hemoglobin 10.0 g/dL (12.0-16.0); Immature Granulocytes Auto 0.02 Thou/mm3 (0.00-0.00); Lymphocytes # (Auto) 1.9 Thou/mm3 (1.0-4.8); Lymphocytes % (Auto) 27 % (10-50); Mean Corpuscular HGB Conc 31.3 g/dl (31.0-37.0); Mean Corpuscular Hemoglobin 26.2 pg (25.0-35.0); Mean Corpuscular Volume 84 fL (80-100); Monocytes # (Auto) 0.6 Thou/mm3 (0.0-0.8); Monocytes % (Auto) 9 % (0-12); Neutrophils # (Auto) 4.5 Thou/mm3 (1.8-7.7); Neutrophils % (Auto) 63 % (37-80); Nucleated Red Blood Cell # 0.00 Thou/mm3 (0.00-0.00); Nucleated Red Blood Cell % 0 /100 WBC (0); Platelet Count 330 Thou/mm3 (140-440); RDW Standard Deviation 46.7 fL (36.4-46.3); Red Blood Count 3.81 Miln/mm3 (4.00-5.20); White Blood Count 7.1 Thou/mm3 (3.6-11.0)
[2025-07-26 06:44] VITALS: BP 156/80; PULSE 81; RESP 17; TEMP 36.5; O2SAT 96
[2025-07-26 06:50] LABS: Alanine Aminotransferase 13 U/L (10-49); Albumin, Serum 4.7 gm/dL (3.4-4.8); Albumin/Globulin Ratio 1.5 (1.2-2.2); Alkaline Phosphatase 71 U/L (46-116); Anion Gap 12 (7-16); Aspartate Amino Transferase 15 U/L (0-34); BUN/Creatinine Ratio 14 Ratio (12-20); Bilirubin,Total 0.2 mg/dL (0.3-1.2); Blood Urea Nitrogen 15 mg/dL (9-23); Calcium 9.2 mg/dL (8.3-10.6); Calcium (Corrected) 9.2 mg/dL (8.5-10.1); Carbon Dioxide 35.6 mMol/L (20.0-31.0); Chloride 100 mMol/L (98-107); Creatinine (Component) 1.1 mg/dL (0.6-1.3); Estimated Creatinine Clearance 38.4 mL/min (>60); Globulin 3.1 gm/dL (2.3-3.5); Glucose 138 mg/dL (74-106); Lipase 28 U/L (12-53); Osmolality,Calculated 297 (275-295); Potassium 3.4 mMol/L (3.4-5.1); Procalcitonin 0.05 ng/ml (0.0-0.49); Sodium 148 mMol/L (136-145); Total Protein 7.8 gm/dL (5.7-8.2); Troponin I < 0.020 ng/mL (0.0-0.045); eGFR 51 See Note
--- NOTE | 2025-07-26 07:10 | EDNOTE_ITS ---
<Statement entered by Jenniffer Santana MD - 08/10/25 17:52> I, Jenniffer Santana MD, have reviewed the history, exam, and assessment of the patient. I have evaluated the patient independently and agree with the plan of care documented by [ ]. All diagnostic studies were reviewed and discussed. I confirm the diagnosis as documented by the Resident. I was present during the Medical Decision Making for this patient. The patient's plan of care was created between myself and the Resident and consistent with our discussion of the patient's case. 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 Exam: Mild epigastric tenderness. Speech normal. Impression: IBS vs gastroenteritis vs colitis vs stomach ulcer vs gastritis Related Data Home Medications ?Medication ?Instructions ?Recorded ?Confirmed acetaminophen 500 mg tablet 500 mg PO PRN PRN Pain 02/05/25 cholecalciferol (vitamin D3) 25 25 mcg PO 1XD 06/27/23 02/05/25 mcg (1,000 unit) tablet (Vitamin D3) levothyroxine 50 mcg tablet 50 mcg PO DAILY 06/27/23 0 02/05/25 metformin 500 mg tablet 500 mg PO DAILY 06/27/23 alprazolam 0.5 mg tablet 0.5 mg PO BID PRN Anxiety 02/05/25 benazepril 20 mg tablet 20 mg PO QDAY 10/28/2302/05 loperamide 2 mg capsule 2 mg PO QDAY 10/28/23 pantoprazole 40 mg tablet,delayed 40 mg PO BID 4 02/05/25 release apixaban 5 mg tablet (Eliquis) 5 mg PO QDAY 06/11/24 0 02/05/25 ascorbic acid (vitamin C) 500 mg 500 mg PO QDAY 02/05/25 tablet (Vitamin C) Previous Rx's ?Medication ?Instructions ?Recorded lidocaine HCl 2 % mucosal solution 5 ml PO TIDPC PRN d yspepsia #300 mL 07/02/24 (Lidocaine Viscous) magnesium hydroxide 2,400 mg/10 mL 30 ml PO QDAY PRN c onstipation #60 01/22/25 oral suspension (Milk Of Magnesia mL Concentrated) sennosides 8.6 mg-docusate sodium 2 tab-cap (2 x 8.6-5 0 mg) PO QDAY 01/22/25 50 mg tablet (Senokot-S) PRN constipation #20 tabs ferrous sulfate 325 mg (65 mg 325 mg PO QOD #30 tabs 0 02/14/25 iron) tablet,delayed release polyethylene glycol 3350 17 4 g PO QDAY #510 grams gram/dose oral powder (Miralax) baclofen 5 mg tablet 5 mg PO BID PRN muscle spasm #10 06/03/25 tabs hydrocodone 5 mg-acetaminophen 325 1 tab PO Q8H PRN pa in #20 tabs 06/17/25 mg tablet famotidine 40 mg tablet 40 mg PO BID #60 tabs pantoprazole 40 mg tablet,delayed 40 mg PO QDAY #14 ta bs 07/23/25 release (Protonix) metoclopramide HCl 10 mg tablet 10 mg PO Q6H PRN nause a and 07/26/25 vomiting 2 weeks #56 tabs Allergies Allergy/AdvReac Type Severity Reaction Status Date / Time amoxicillin (From Augmentin) Allergy Severe Hives Verified 07/23/25 12:13 aspirin Allergy Severe Abdominal Verified 07/23/25 12:13 Pain ciprofloxacin (From Cipro) Allergy Severe Gastrointestinal Verified 07/23/25 12:13 Upset clavulanic acid (From Allergy Severe Hives Verified 07/23/25 12:13 Augmentin) codeine Allergy Severe Nausea Verified 07/23/25 12:13 fluconazole Allergy Severe Rash Verified 07/23/25 12:13 gabapentin Allergy Severe Abdominal Verified 07/23/25 12:13 Pain ketorolac (From Toradol) Allergy Severe Abdominal Verified 07/23/25 12:13 Pain nalbuphine Allergy Severe Abdominal Verified 07/23/25 12:13 Pain Sulfa (Sulfonamide Allergy Severe Hives Verified 07/23/25 12:13 Antibiotics) tizanidine Allergy Severe Rash Verified 07/23/25 12:13 tramadol Allergy Severe Rash Verified 07/23/25 12:13 dicyclomine (From Bentyl) AdvReac Severe Abdominal Verified 07/23/25 12:13 Pain ED Exam Narrative Physical exam: Physical Exam: GENERAL: Awake, answering questions appropriately, appears stated age HEENT: NC/AT. Moist mucosa. PERRLA/EOMI. CARDIO: Heart RRR (does not seem to be in A-fib currently), no obvious murmurs, no JVD. PULM: No coughing or visible SOB. Lungs CTA B/L. GI: Abdomen soft, NT/ND, +BS. SKIN/MSK/EXT: No wounds/discoloration/rashes/edema/amputations. +Pedal pulses present B/L. NEURO: Oriented x3, Moves extremities x4, no focal neurologic deficits noted. Course Quality Measures none Orders Category Date Time Status EKG (ED ONLY) *Do not use* NOW Care 07/26/25 03:58 Completed EKG (ED Only) Stat Exams 07/26/25 03:58 Draft XR chest 1V portable Stat Exams 07/26/25 04:30 Taken CBC Stat Lab 07/26/25 06:05 Completed Comprehensive Metabolic Panel Stat Lab 07/26/25 06:05 Completed Lactate (Lactic Acid) Stat Lab 07/26/25 06:05 Completed Lipase Stat Lab 07/26/25 06:05 Completed Procalcitonin Stat Lab 07/26/25 06:05 Completed Troponin I Stat Lab 07/26/25 06:05 Completed Lidocaine 2% Viscous [Xylocaine 2% Viscous] Med 07/26/25 04:30 Discontinued 15 ml PO X1 ONE Metoclopramide [Reglan] Med 07/26/25 04:30 Discontinued 10 mg PO X1 ONE Ringers Lactated 1000 ml [Lactated Ringers] 1,000 ml Med 07/26/25 07:09 Discontinued IV 500 mls/hr Vital Signs Vital signs: Vital Signs Temperature 98 F 07/26/25 04:10 Pulse Rate 80 07/26/25 04:10 Respiratory Rate 18 07/26/25 04:10 Blood Pressure 135/81 H 07/26/25 04:10 Pulse Oximetry (%) 96 07/26/25 04:10 Oxygen Delivery Method Room Air 07/26/25 04:10 Discharge Plan Plan Patient Disposition: HOME (Self Care) Patient condition on transfer: Stable Prescriptions/Referrals Prescriptions/Med Rec: New metoclopramide HCl 10 mg tablet 10 mg PO Q6H PRN (Reason: nausea and vomiting) 14 Days Qty: 56 0RF Discontinued ondansetron 4 mg tablet,disintegrating 4 mg PO Q8H PRN (Reason: nausea and vomiting) Qty: 10 0RF ondansetron 4 mg tablet,disintegrating 4 mg PO TID PRN (Reason: nausea and vomiting) 30 Days Qty: 10 0RF ondansetron 4 mg tablet,disintegrating 4 mg PO Q8H PRN (Reason: nausea and vomiting) Qty: 14 0RF promethazine 25 mg tablet 12.5 mg PO TID PRN (Reason: nausea) Qty: 14 0RF No Action metformin 500 mg Tablet 500 mg PO DAILY acetaminophen 500 mg Tablet 500 mg PO PRN MDD 4 PRN (Reason: Pain) levothyroxine 50 mcg Tablet 50 mcg PO DAILY cholecalciferol (vitamin D3) [Vitamin D3] 25 mcg (1,000 unit) Tablet 25 mcg PO 1XD loperamide 2 mg capsule 2 mg PO QDAY alprazolam 0.5 mg tablet 0.5 mg PO BID PRN (Reason: Anxiety) Patient Comments: TAKE 1 TABLET BY MOUTH THREE TIMES DAILY NEEDED FOR ANXIETY pantoprazole 40 mg tablet,delayed release (DR/EC) 40 mg PO BID Patient Comments: TAKE 1 TABLET BY MOUTH DAILY benazepril 20 mg tablet 20 mg PO QDAY lidocaine HCl [Lidocaine Viscous] 2 % solution 5 ml PO TIDPC MDD 15 mL PRN (Reason: dyspepsia) Qty: 300 0RF baclofen 5 mg tablet 5 mg PO BID PRN (Reason: muscle spasm) Qty: 10 0RF famotidine 40 mg tablet 40 mg PO BID Qty: 60 0RF Eliquis 5 mg Tablet 5 mg PO QDAY sennosides-docusate sodium [Senokot-S] 8.6-50 mg tablet 2 tab-cap PO QDAY PRN (Reason: constipation) Qty: 20 0RF magnesium hydroxide [Milk Of Magnesia Concentrated] 2,400 mg/10 mL suspension 30 ml PO QDAY PRN (Reason: constipation) Qty: 60 0RF ascorbic acid (vitamin C) [Vitamin C] 500 mg tablet 500 mg PO QDAY ferrous sulfate 325 mg (65 mg iron) Tablet,Delayed Release (Dr/Ec) 325 mg PO QOD Qty: 30 0RF polyethylene glycol 3350 [Miralax] 17 gram/dose powder 4 g PO QDAY Qty: 510 0RF hydrocodone-acetaminophen 5-325 mg tablet 1 tab PO Q8H MDD 3 tab PRN (Reason: pain) Qty: 20 0RF pantoprazole [Protonix] 40 mg tablet,delayed release (DR/EC) 40 mg PO QDAY Qty: 14 0RF Referrals: Tyrone Langford MD [Primary Care Provider, Family Practice] - In 1 week Problem List Clinical Impression: Irritable bowel syndrome with alternating bowel habits Patient/Caregiver Discharge Instructions Additional Instructions: Please use metoclopramide 10 mg every 6 hours as needed for nausea/vomiting Stop using ondansetron/Zofran or promethazine Please be aware of QT prolonging medications and let your PCP know to avoid multiple QT prolonging medications Follow-up with your PCP within 1 week and follow-up with your nail making machine tender within 2 weeks If your symptoms worsen or if you develop new and worsening abdominal pain, bleeding or worsening diarrhea please come back to the ER immediately Print Language: Hebrew Stand Alone Forms: [employer] Award Info., Patient Portal Info Letter MDM Narrative MDM hospital course (for use when minimal MDM required): HPI: 79-year-old female with past medical history of A-fib not on Eliquis and due to some risk of duodenal ulcer apparently, IBS, hypothyroidism, [id number] endent type 2 diabetes, GERD presenting to the ER on 07/26 for persistent GERD like symptoms. Patient states that she attempted a GI cocktail at home which did not subside her symptoms of burning abdominal pain radiating up to her esophagus. She has multiple visits in the past for similar presentations and she follows up with a nail making machine tender outpatient. Her last EGD was several months ago and she apparently has a duodenal ulcer without any needed intervention. She otherwise denies having any melenic stools, hematochezia, hematemesis, on warranted weight loss, fever/chills, chest pain, shortness of breath or palpitations. She also apparently had 1 episode of diarrhea right before presenting to the ER. On examination, please refer to physical exam above; patient presented to the ER mildly hypertensive 135/81, heart rate 80, respiratory rate 18, afebrile satting 96 on room air. Pertinent lab findings included CBC with persistent normocytic anemia at her baseline 10.0 without any leukocytosis or thrombocytosis, CMP does show signs of dehydration as noted above in HPI with hypernatremia and metabolic alkalosis and some degree of CKD stage IIIa with a eGFR of 51, lactic acid of 1.7, rest of electrolytes largely unremarkable, troponin today is less than 0.020 and risk for heart condition remains low at this time, Pro-Diego is also 0.05. Chest x-ray is pending radiology read but appears largely unremarkable and EKG shows normal sinus rhythm with left axis deviation but no concerning ST changes. #Gastroparesis #IBS Patient has multiple ED visits for similar presentations On examination largely appears nontoxic and after being given Viscous lidocaine along with Reglan 10 mg she appears to be symptom-free with an unremarkable physical exam Plan: Will discharge patient with the following strict instructions Please use metoclopramide 10 mg every 6 hours as needed for nausea/vomiting Stop using ondansetron/Zofran or promethazine Please be aware of QT prolonging medications and let your PCP know to avoid multiple QT prolonging medications Follow-up with your PCP within 1 week and follow-up with your nail making machine tender within 2 weeks If your symptoms worsen or if you develop new and worsening abdominal pain, bleeding or worsening diarrhea please come back to the ER immediately Patient seen and assessed with attending Dr. ADRIEN Kruse, DO PGY-2 Internal Medicine - GME Medication Administration(s) Medication Administration History Discontinued Medications Lactated Ringer's (Lactated Ringers) 1,000 mls @ 500 mls/hr IV .Q2H ONE Stop: 07/26/25 09:08 Lidocaine HCl (Lidocaine Viscous 2% 15 Ml Udc) 15 ml PO X1 ONE Stop: 07/26/25 04:31 Last Admin: 07/26/25 04:54 Dose: 15 ml Documented By: CVL Metoclopramide HCl (Metoclopramide 5 Mg Tablet) 10 mg PO X1 ONE Stop: 07/26/25 04:31 Last Admin: 07/26/25 04:46 Dose: 10 mg Documented By: CVL
== END 2025-07-26 07:51 | disposition home or self-care (01) ==
PROVIDERS: Physician Assistant; Emergency Provider Emergency Medicine; PCP Family Medicine
DX: K58.0 Irritable bowel syndrome with diarrhea (principal); R07.9 Chest pain, unspecified; R94.31 Abnormal electrocardiogram [ECG] [EKG]; I10 Essential (primary) hypertension
CPT/HCPCS: 36415; 71045; 80053; 83605; 83690; 84145; 84484; 85025; 93005; 99283; J3490; A9270

== ENCOUNTER 2025-07-29 11:16 | Emergency (ER) | payer MEDICARE, BC, SELFPAY ==
[2025-07-29 11:28] VITALS: PULSE 74; RESP 18; BMI 31.2
[2025-07-29 11:30] VITALS: BP 207/83; PULSE 71; RESP 18; TEMP 36.6; O2SAT 95; BMI 31.2
--- NOTE | 2025-07-29 11:46 | EKG_ITS ---
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1945 Requested By: Vincezno Santos Order Number: [id number] Reading MD: Vincenzo Santos Measurements Intervals [place] Rate: 74 P: 74 ID: [id number] QRS: -10 QRSD: 110 T: 79 QT: 398 QTc: 444 Interpretive Statements SINUS RHYTHM MODERATE INTRAVENTRICULAR CONDUCTION DELAY [105+ ms QRS DURATION, 80+ ms Q/S IN V1/V2, NO Q AND 60+ ms R IN I/aVL/V5/V6] NONSPECIFIC T-WAVE ABNORMALITY Compared to ECG 07/26/2025 04:06:36 Intraventricular conduction delay now present T-wave abnormality now present Left ventricular hypertrophy no longer present ST (T wave) deviation no longer present Myocardial infarct finding no longer present /store/S0/[id number]/ecg/[id number].pdf
--- NOTE | 2025-07-29 11:47 | PD.EDWEAK ---
ED Weakness RME/HPI General Chief complaint: Weakness Stated complaint: NOT FEELING WELL Time Seen by Provider: 07/29/25 11:19 Arrival date/time: 07/29/25 11:16 79-year-old female patient who is known to us in this emergency room, this is her more than 140 visits in this emergency room since August 2024, coming in for the same complaints, epigastric pain. Patient today took Leisenring, GI cocktail, for epigastric pain. After taking the medication patient felt not feeling well. Told me that her epigastric pain is almost gone however not feeling well. Severity of symptoms moderate. Patient is denying any chest pain denies any headache denies any other complaints. Patient was seen here 3 days ago and laboratory workup all came back unremarkable patient told me that she took her blood pressure medication today also. Her blood pressure in the triage was noted to be 207/83. Patient came in an ambulance. Related Data Home Medications ?Medication ?Instructions ?Recorded ?Confirmed acetaminophen 500 mg tablet 500 mg PO PRN PRN Pain 06/27/23 02/05/25 cholecalciferol (vitamin D3) 25 25 mcg PO 1XD 06/27/23 02/05/25 mcg (1,000 unit) tablet (Vitamin D3) levothyroxine 50 mcg tablet 50 mcg PO DAILY 06/27/23 02/05/25 metformin 500 mg tablet 500 mg PO DAILY 06/27/23 02/05/25 alprazolam 0.5 mg tablet 0.5 mg PO BID PRN Anxiety 10/28/23 02/05/25 benazepril 20 mg tablet 20 mg PO QDAY 10/28/23 02/05/25 loperamide 2 mg capsule 2 mg PO QDAY 10/28/23 02/06/25 pantoprazole 40 mg tablet,delayed 40 mg PO BID 10/28/23 02/05/25 release apixaban 5 mg tablet (Eliquis) 5 mg PO QDAY 06/11/24 02/05/25 ascorbic acid (vitamin C) 500 mg 500 mg PO QDAY 02/05/25 02/05/25 tablet (Vitamin C) Previous Rx's ?Medication ?Instructions ?Recorded lidocaine HCl 2 % mucosal solution 5 ml PO TIDPC PRN dyspepsia #300 mL 07/02/24 (Lidocaine Viscous) magnesium hydroxide 2,400 mg/10 mL 30 ml PO QDAY PRN constipation #60 01/22/25 oral suspension (Milk Of Magnesia mL Concentrated) sennosides 8.6 mg-docusate sodium 2 tab-cap (2 x 8.6-50 mg) PO QDAY 01/22/25 50 mg tablet (Senokot-S) PRN constipation #20 tabs ferrous sulfate 325 mg (65 mg 325 mg PO QOD #30 tabs 02/14/25 iron) tablet,delayed release polyethylene glycol 3350 17 4 g PO QDAY #510 grams 02/26/25 gram/dose oral powder (Miralax) baclofen 5 mg tablet 5 mg PO BID PRN muscle spasm #10 06/03/25 tabs hydrocodone 5 mg-acetaminophen 325 1 tab PO Q8H PRN pain #20 tabs 06/17/25 mg tablet famotidine 40 mg tablet 40 mg PO BID #60 tabs 07/21/25 pantoprazole 40 mg tablet,delayed 40 mg PO QDAY #14 tabs 07/23/25 release (Protonix) metoclopramide HCl 10 mg tablet 10 mg PO Q6H PRN nausea and 07/26/25 vomiting 2 weeks #56 tabs Allergies Allergy/AdvReac Type Severity Reaction Status Date / Time amoxicillin (From Augmentin) Allergy Severe Hives Verified 07/23/25 12:13 aspirin Allergy Severe Abdominal Verified 07/23/25 12:13 Pain ciprofloxacin (From Cipro) Allergy Severe Gastrointestinal Verified 07/23/25 12:13 Upset clavulanic acid (From Allergy Severe Hives Verified 07/23/25 12:13 Augmentin) codeine Allergy Severe Nausea Verified 07/23/25 12:13 fluconazole Allergy Severe Rash Verified 07/23/25 12:13 gabapentin Allergy Severe Abdominal Verified 07/23/25 12:13 Pain ketorolac (From Toradol) Allergy Severe Abdominal Verified 07/23/25 12:13 Pain nalbuphine Allergy Severe Abdominal Verified 07/23/25 12:13 Pain Sulfa (Sulfonamide Allergy Severe Hives Verified 07/23/25 12:13 Antibiotics) tizanidine Allergy Severe Rash Verified 07/23/25 12:13 tramadol Allergy Severe Rash Verified 07/23/25 12:13 dicyclomine (From Bentyl) AdvReac Severe Abdominal Verified 07/23/25 12:13 Pain Review of Systems Review of Systems Narrative Review of Systems: Review of system reviewed and within normal limits except mentioned in HPI ED Exam Narrative Physical exam: VITAL SIGNS: Reviewed. GENERAL APPEARANCE: Alert and interactive, follows commands, no acute distress, HEAD AND FACE: Non-traumatic. ENT: PERRL, pink conjunctivitis, eyelid no trauma, Mucous membrane moist. NECK: Supple, nontender, no nuchal rigidity. CHEST: No tenderness, no crepitus, no paradoxical movement, no retractions. LUNGS: Clear, well ventilated, symmetric, no rales, no wheezing, no ronchi, no stridor, good breath sounds bilaterally. HEART: Regular rate, regular rhythm, no murmur, no gallops. ABDOMEN: Soft, positive bowel sounds, nondistended, no guarding, epigastric tenderness, no rebound, no masses, RECTAL: Deferred. GENITAL: Deferred. NEUROLOGICAL: Gross motor function intact sensory function intact, Appropriate for age. MUSCULOSKELETAL: low back nontender, full range of motion. EXTREMITIES: Nontender, full range of motion. SKIN: Color pink, dry, no rash, no lacerations, no abrasions, no contusions. LYMPHATICS: Deferred. Course Quality Measures none Orders Category Date Time Status EKG (ED ONLY) *Do not use* NOW Care 07/29/25 11:47 Completed EKG (ED Only) Stat Exams 07/29/25 11:46 Draft hydrALAZINE HCL [Apresoline] Med 07/29/25 11:46 Discontinued 25 mg PO X1 ONE Vital Signs Vital signs: Vital Signs Temperature 97.8 F 07/29/25 11:30 Pulse Rate 71 07/29/25 11:30 Respiratory Rate 18 07/29/25 11:30 Blood Pressure 207/83 H 07/29/25 11:30 Pulse Oximetry (%) 95 07/29/25 11:30 Oxygen Delivery Method Room Air 07/29/25 11:30 Weakness MDM Narrative MDM Narrative:: 79-year-old female patient who is known to us in this emergency room, this is her more than 140 visits in this emergency room since August 2024, coming in for the same complaints, epigastric pain. Patient today took Leisenring, GI cocktail, for epigastric pain. After taking the medication patient felt not feeling well. Told me that her epigastric pain is almost gone however not feeling well. Severity of symptoms moderate. Patient is denying any chest pain denies any headache denies any other complaints. Patient was seen here 3 days ago and laboratory workup all came back unremarkable patient told me that she took her blood pressure medication today also. Her blood pressure in the triage was noted to be 207/83. Patient came in an ambulance. EKG as interpreted by me shows sinus rhythm, ventricular to 74 bpm, no ST segment elevation of depression noted. Repeat laboratory Dated This Time I Review Her Results That Was Done 3 Days Ago and They Are All Came Back Normal. Patient was observed for few hours, and on reevaluation prior to discharge she told me that she is feeling better. She is stable for charged home I told her to follow-up with GI specialist soon. Patient agrees with the plan. Patient data External records reviewed:: None Clinical information provided by:: patient Social determinants that could affect healthcare access:: none Patient has the following chronic illnesses:: Hypochondriasis, gastritis, anxiety, How is presenting disease/condition affected by chronic disease/condition?: exacerbated by Evaluation data The following diagnostics were reviewed and interpreted by me:: EKG tracing(s) Lab and/or radiology exams considered but not ordered:: None Interpretation Summary: See above Medications / Prescriptions Medications or Prescriptions considered but not ordered:: None Medication administrations:: Medication Administration History Discontinued Medications Hydralazine HCl (Hydralazine Hcl 25 Mg Tablet) 25 mg PO X1 ONE Stop: 07/29/25 11:47 Last Admin: 07/29/25 11:53 Dose: 25 mg Documented By: VG Hydralazine Consultations Consultation(s) initiated? (list below): No Diagnosis Weakness Differential Diagnosis: hypoglycemia and dehydration Most likely diagnosis given after review of the tests above:: Generalized weakness Admission Indicated Admission indicated?: not indicated Admission Request Was there a request for admission?: No Disposition Plan Disposition Plan: Discharge Discharge Attestation Discharge Attestation: The patient and all family members were given an opportunity to ask questions and understood the discharge instructions. Discharge instructions specifically effects, indications for sooner follow up or return to the emergency department, and the expected course of current diagnosis. Patient condition: Stable Discharge Plan Plan Patient Disposition: HOME (Self Care) Discharge Disposition comment: Stable Prescriptions/Referrals Prescriptions/Med Rec: No Action metformin 500 mg Tablet 500 mg PO DAILY acetaminophen 500 mg Tablet 500 mg PO PRN MDD 4 PRN (Reason: Pain) levothyroxine 50 mcg Tablet 50 mcg PO DAILY cholecalciferol (vitamin D3) [Vitamin D3] 25 mcg (1,000 unit) Tablet 25 mcg PO 1XD loperamide 2 mg capsule 2 mg PO QDAY alprazolam 0.5 mg tablet 0.5 mg PO BID PRN (Reason: Anxiety) Patient Comments: TAKE 1 TABLET BY MOUTH THREE TIMES DAILY NEEDED FOR ANXIETY pantoprazole 40 mg tablet,delayed release (DR/EC) 40 mg PO BID Patient Comments: TAKE 1 TABLET BY MOUTH DAILY benazepril 20 mg tablet 20 mg PO QDAY lidocaine HCl [Lidocaine Viscous] 2 % solution 5 ml PO TIDPC MDD 15 mL PRN (Reason: dyspepsia) Qty: 300 0RF baclofen 5 mg tablet 5 mg PO BID PRN (Reason: muscle spasm) Qty: 10 0RF famotidine 40 mg tablet 40 mg PO BID Qty: 60 0RF Eliquis 5 mg Tablet 5 mg PO QDAY sennosides-docusate sodium [Senokot-S] 8.6-50 mg tablet 2 tab-cap PO QDAY PRN (Reason: constipation) Qty: 20 0RF magnesium hydroxide [Milk Of Magnesia Concentrated] 2,400 mg/10 mL suspension 30 ml PO QDAY PRN (Reason: constipation) Qty: 60 0RF ascorbic acid (vitamin C) [Vitamin C] 500 mg tablet 500 mg PO QDAY ferrous sulfate 325 mg (65 mg iron) Tablet,Delayed Release (Dr/Ec) 325 mg PO QOD Qty: 30 0RF polyethylene glycol 3350 [Miralax] 17 gram/dose powder 4 g PO QDAY Qty: 510 0RF hydrocodone-acetaminophen 5-325 mg tablet 1 tab PO Q8H MDD 3 tab PRN (Reason: pain) Qty: 20 0RF pantoprazole [Protonix] 40 mg tablet,delayed release (DR/EC) 40 mg PO QDAY Qty: 14 0RF metoclopramide HCl 10 mg tablet 10 mg PO Q6H PRN (Reason: nausea and vomiting) 14 Days Qty: 56 0RF Problem List Clinical Impression: Weakness generalized Patient/Caregiver Discharge Instructions Discharge Activity: activity as tolerated Education Materials: ED Weakness (Uncertain Cause) Additional Instructions: Thank you for the opportunity for serving you today. You are stable for discharged . You are advised to: Follow-up with your PCP in 1 to 2 days Return to ED for worsening of symptoms Increase oral fluids Take medication as prescribed by your PCP Print Language: Serbian Stand Alone Forms: [employer] Award Info., Patient Portal Info Letter PA/ZULEIKA Supervising Physician FEROZ/ZULEIKA Supervising Physician: MD Maricarmen
[2025-07-29 11:53] VITALS: BP 174/76; PULSE 84
[2025-07-29 15:51] VITALS: BP 178/84; PULSE 79
== END 2025-07-29 16:00 | disposition home or self-care (01) ==
LOC: SERX 15:55
PROVIDERS: Emergency Provider Emergency Medicine; PCP Family Medicine
DX: R53.1 Weakness (principal); I45.89 Other specified conduction disorders
CPT/HCPCS: 93005; 99282; A9270

== ENCOUNTER 2025-08-08 04:48 | Emergency (ER) | payer MEDICARE, BC, SELFPAY ==
[2025-08-08 04:49] VITALS: BMI 31.2
--- NOTE | 2025-08-08 05:13 | PC.NURSE ---
NO ANSWER AT ER LOBBY OR OUTSIDE TO BE SEEN BY PROVIDER, SECURITY SAID SHE LEFT.
== END 2025-08-08 05:15 | disposition left against medical advice (07) ==
LOC: SERX 05:21
PROVIDERS: Emergency Provider Emergency Medicine; PCP Family Medicine
DX: Z53.21 Procedure and treatment not carried out due to patient leaving prior to being seen by health care provider (principal)
CPT/HCPCS: 99281